=== PATIENT | male | born 1960 | race Caucasian/White ===

== ENCOUNTER 2016-10-14 10:14 | Inpatient (IN) | payer BC ==
[2016-10-14] MEDS ORDERED: IPRATROPIUM-ALBUTEROL 3 ML NEB INHALATION STA (11:04)
[2016-10-14] MEDS ORDERED: FUROSEMIDE 10 MG/ML 4 ML VIAL IV STA (11:04)
--- NOTE | 2016-10-14 11:06 | ED ---
General Adult HPI - General Chief complaint: Shortness of Breath Stated complaint: retaining water, sent by [facility] Time Seen by Provider: 10/14/16 10:58 Source: patient, RN notes reviewed Mode of arrival: ambulatory Limitations: no limitations - History of Present Illness Initial comments: Patient is a pleasant 56-year-old male presenting to the emergency Department with concerns for retaining water. Symptoms have progressed over several days. Patient does have some mild exertional dyspnea, no chest pain. No history of lung problems including asthma or COPD. Patient does have a history of similar symptoms once previously associated with CHF. Bladder retention is mostly in the legs however somewhat in the abdomen. - Related Data Home Medications Medication Instructions Recorded Confirmed No Known Home Medications [No 10/14/16 10/14/16 Known Home Medications] Allergies Allergy/AdvReac Type Severity Reaction Status Date / Time No Known Allergies Allergy Verified 10/14/16 12:07 Review of Systems ROS Statement: Those systems with pertinent positive or pertinent negative responses have been documented in the HPI. ROS Other: All systems not noted in ROS Statement are negative. Constitutional: Denies: fever Eyes: Denies: eye pain ENT: Denies: ear pain Respiratory: Reports: dyspnea. Denies: cough Cardiovascular: Reports: edema. Denies: chest pain Endocrine: Denies: fatigue Gastrointestinal: Denies: abdominal pain Genitourinary: Denies: dysuria Musculoskeletal: Denies: back pain Skin: Denies: rash Past Medical History Past Medical History: Heart Failure, Hypertension History of Any Multi-Drug Resistant Organisms: MRSA Date of last positivie culture/infection: 5 YEARS AGO MDRO Source:: LEFT ABD Additional Past Surgical History / Comment(s): COLON SX Past Psychological History: No Psychological Hx Reported Smoking Status: Current every day smoker Past Alcohol Use History: None Reported Past Drug Use History: None Reported General Exam Limitations: no limitations General appearance: alert, in no apparent distress, obese Head exam: Present: atraumatic Eye exam: Present: normal appearance, PERRL ENT exam: Present: normal oropharynx Neck exam: Present: normal inspection Respiratory exam: Present: wheezes (Mild expiratory) Cardiovascular Exam: Present: tachycardia, irregular rhythm GI/Abdominal exam: Present: soft. Absent: tenderness Extremities exam: Present: pedal edema. Absent: calf tenderness Neurological exam: Present: alert Psychiatric exam: Present: normal affect, normal mood Skin exam: Absent: rash Course Vital Signs 10/14/16 10/14/16 10/14/16 10:54 11:21 11:31 Temperature 98.1 F Pulse Rate 113 H 102 H 104 H Respiratory 20 Rate Blood Pressure 123/85 O2 Sat by Pulse 99 Oximetry EKG Findings - EKG Comments: EKG Findings:: A. fib with RVR, rate 119. QRS 92. QT 326. QTc 450. Normal axis. Normal QRS. Nonspecific T waves. Medical Decision Making - Medical Decision Making Patient reexamined and resting comfortably in bed. Patient updated on results and plan. Patient will be anticoagulated. Patient will be started on Cardizem drip secondary to persistent tachycardia. Case discussed in detail with Dr. Mccann, who will admit for Dr. Varner. - Lab Data Result diagrams: 10/14/16 11:11 10/14/16 11:11 Lab Results 10/14/16 10/14/16 10/14/16 Range/Units 11:11 11:11 11:11 WBC 7.8 (3.8-10.6) k/uL RBC 5.25 (4.30-5.90) m/uL Hgb 14.2 (13.0-17.5) gm/dL Hct 46.1 (39.0-53.0) % MCV 87.8 (80.0-100.0) fL MCH 27.1 (25.0-35.0) pg MCHC 30.9 L (31.0-37.0) g/dL RDW 16.5 H (11.5-15.5) % Plt Count 245 (150-450) k/uL Neutrophils % 72 % Lymphocytes % 14 % Monocytes % 8 % Eosinophils % 3 % Basophils % 1 % Neutrophils # 5.6 (1.3-7.7) k/uL Lymphocytes # 1.1 (1.0-4.8) k/uL Monocytes # 0.7 (0-1.0) k/uL Eosinophils # 0.2 (0-0.7) k/uL Basophils # 0.1 (0-0.2) k/uL Hypochromasia Marked Anisocytosis Slight PT (9.0-12.0) sec INR (<1.1) APTT (22.0-30.0) sec Sodium 143 (137-145) mmol/L Potassium 4.7 (3.5-5.1) mmol/L Chloride 106 (98-107) mmol/L Carbon Dioxide 24 (22-30) mmol/L Anion Gap 13 mmol/L BUN 23 H (9-20) mg/dL Creatinine 0.82 (0.66-1.25) mg/dL Est GFR (MDRD) Af Amer >60 (>60 ml/min/1.73 sqM) Est GFR (MDRD) Non-Af >60 (>60 ml/min/1.73 sqM) Glucose 110 H (74-99) mg/dL Calcium 8.8 (8.4-10.2) mg/dL Magnesium 1.9 (1.6-2.3) mg/dL Total Bilirubin 1.0 (0.2-1.3) mg/dL AST 29 (17-59) U/L ALT 19 L (21-72) U/L Alkaline Phosphatase 102 (38-126) U/L Total Creatine Kinase 118 (55-170) U/L CK-MB (CK-2) 3.8 H* (0.0-2.4) ng/mL CK-MB (CK-2) Rel Index 3.2 Troponin I <0.012 (0.000-0.034) ng/mL NT-Pro-B Natriuret Pep pg/mL Total Protein 6.4 (6.3-8.2) g/dL Albumin 3.7 (3.5-5.0) g/dL 10/14/16 10/14/16 Range/Units 11:11 11:11 WBC (3.8-10.6) k/uL RBC (4.30-5.90) m/uL Hgb (13.0-17.5) gm/dL Hct (39.0-53.0) % MCV (80.0-100.0) fL MCH (25.0-35.0) pg MCHC (31.0-37.0) g/dL RDW (11.5-15.5) % Plt Count (150-450) k/uL Neutrophils % % Lymphocytes % % Monocytes % % Eosinophils % % Basophils % % Neutrophils # (1.3-7.7) k/uL Lymphocytes # (1.0-4.8) k/uL Monocytes # (0-1.0) k/uL Eosinophils # (0-0.7) k/uL Basophils # (0-0.2) k/uL Hypochromasia Anisocytosis PT 11.4 (9.0-12.0) sec INR 1.1 (<1.1) APTT 22.9 (22.0-30.0) sec Sodium (137-145) mmol/L Potassium (3.5-5.1) mmol/L Chloride (98-107) mmol/L Carbon Dioxide (22-30) mmol/L Anion Gap mmol/L BUN (9-20) mg/dL Creatinine (0.66-1.25) mg/dL Est GFR (MDRD) Af Amer (>60 ml/min/1.73 sqM) Est GFR (MDRD) Non-Af (>60 ml/min/1.73 sqM) Glucose (74-99) mg/dL Calcium (8.4-10.2) mg/dL Magnesium (1.6-2.3) mg/dL Total Bilirubin (0.2-1.3) mg/dL AST (17-59) U/L ALT (21-72) U/L Alkaline Phosphatase (38-126) U/L Total Creatine Kinase (55-170) U/L CK-MB (CK-2) (0.0-2.4) ng/mL CK-MB (CK-2) Rel Index Troponin I (0.000-0.034) ng/mL NT-Pro-B Natriuret Pep 2600 pg/mL Total Protein (6.3-8.2) g/dL Albumin (3.5-5.0) g/dL - Radiology Data Radiology results: image reviewed (Mild cardiomegaly. Interstitial and vascular prominence correlate for CHF.) Critical Care Time Critical Care Time: Yes Total Critical Care Time: 33 Disposition Clinical Impression: Congestive heart failure, Atrial fibrillation with RVR Disposition: ADMITTED IP TO THIS HOSP
[2016-10-14 11:29] LABS: Anisocytosis Slight; Basophils # (A) 0.1 k/uL (0-0.2); Basophils % (A) 1 %; CH 26.1; Eosinophils # (A) 0.2 k/uL (0-0.7); Eosinophils % (A) 3 %; HCT 46.1 % (39.0-53.0); HDW 2.96; HGB 14.2 gm/dL (13.0-17.5); Hypochromasia Marked; Luc # (Auto) 0.18; Luc % (Auto) 2; Lymphocytes # (A) 1.1 k/uL (1.0-4.8); Lymphocytes % (A) 14 %; MCH 27.1 pg (25.0-35.0); MCHC 30.9 g/dL (31.0-37.0); MCV 87.8 fL (80.0-100.0); Mean Platelet Volume 7.5; Monocytes # (A) 0.7 k/uL (0-1.0); Monocytes % (A) 8 %; Neutrophils # (A) 5.6 k/uL (1.3-7.7); Neutrophils % (A) 72 %; RBC 5.25 m/uL (4.30-5.90); RDW 16.5 % (11.5-15.5); WBC 7.8 k/uL (3.8-10.6); WBC (Perox) 7.81
[2016-10-14 11:42] LABS: INR 1.1 (<1.1)
[2016-10-14 11:43] LABS: Partial Thromboplastin Time 22.9 sec (22.0-30.0); Prothrombin Time 11.4 sec (9.0-12.0)
[2016-10-14 11:58] LABS: ALT 19 U/L (21-72); AST 29 U/L (17-59); Alkaline Phosphatase 102 U/L (38-126); Anion Gap 13 mmol/L; Blood Urea Nitrogen 23 mg/dL (9-20); Calcium 8.8 mg/dL (8.4-10.2); Carbon Dioxide 24 mmol/L (22-30); Chloride 106 mmol/L (98-107); Creatine Kinase 118 U/L (55-170); Glucose 110 mg/dL (74-99); Magnesium 1.9 mg/dL (1.6-2.3); Non-African American GFR(MDRD) >60 (>60 ml/min/1.73 sqM); Potassium 4.7 mmol/L (3.5-5.1); Sodium 143 mmol/L (137-145); Total Protein 6.4 g/dL (6.3-8.2)
[2016-10-14 12:09] LABS: Troponin I <0.012 ng/mL (0.000-0.034)
[2016-10-14 12:15] LABS: Creatine Kinase MB 3.8 ng/mL (0.0-2.4)
--- NOTE | 2016-10-14 12:18 | XR ---
EXAMINATION TYPE: XR chest 2V DATE OF EXAM: 10/14/2016 12:02 PM COMPARISON: None HISTORY: 56-year-old male with difficulty breathing TECHNIQUE: PA and lateral views FINDINGS: The heart is borderline to mildly enlarged. Aorta within normal limits. Mild diffuse interstitial and vascular prominence. No consolidation or pleural effusion. IMPRESSION: 1. Borderline to mild cardiomegaly. 2. Interstitial and vascular prominence main in part be chronic; correlate for mild CHF. No jayesh pul monary edema.
[2016-10-14] MEDS ORDERED: ASPIRIN 325 MG TAB PO STA (13:20)
[2016-10-14] MEDS ORDERED: HEPARIN SODIUM,PORCINE 5,000 UNIT/ML 1 ML VIAL IV ONE (13:21)
[2016-10-14] MEDS: DILTIAZEM 125 MG in SODIUM CHLORIDE 0.9% 100 ML IV ONE ×2 (13:43→13:56)
[2016-10-14] MEDS: HEPARIN SODIUM,PORCINE/D5W PMX 25,000 UNIT in DEXTROSE/WATER 1 500ML.BAG IV SCH (13:43)
[2016-10-14] MEDS: FUROSEMIDE 10 MG/ML 4 ML VIAL IV SCH ×2 (16:34→23:15)
[2016-10-14] MEDS: HEPARIN SODIUM,PORCINE 5,000 UNIT/ML 1 ML VIAL IV PRN (20:47)
[2016-10-15 02:55] LABS: Anisocytosis Slight; CH 26.3; CHCM 30.9; HCT 44.9 % (39.0-53.0); HDW 3.02; HGB 14.1 gm/dL (13.0-17.5); Hypochromasia Moderate; MCH 26.9 pg (25.0-35.0); MCHC 31.4 g/dL (31.0-37.0); MCV 85.7 fL (80.0-100.0); Mean Platelet Volume 7.2; RBC 5.23 m/uL (4.30-5.90); RDW 16.5 % (11.5-15.5); WBC 6.4 k/uL (3.8-10.6); WBC (Perox) 6.36
[2016-10-15] MEDS: HEPARIN SODIUM,PORCINE 5,000 UNIT/ML 1 ML VIAL IV PRN (03:18)
[2016-10-15 06:48] LABS: Add Differential Manual Differential
[2016-10-15 06:50] LABS: Nucleated Red Blood Cells 0 /100 WBC (0-0); Total Cells Counted 100
[2016-10-15 06:51] LABS: Ovalocytes Present; Polychromasia Present
[2016-10-15 06:52] LABS: Manual Review Performed
[2016-10-15] MEDS: FUROSEMIDE 10 MG/ML 4 ML VIAL IV SCH ×3 (08:25→23:21)
[2016-10-15] MEDS ORDERED: ASPIRIN 325 MG TAB PO SCH (09:00)
[2016-10-15] MEDS: IPRATROPIUM-ALBUTEROL 3 ML NEB INHALATION SCH ×3 (13:23→19:44)
[2016-10-15] MEDS: NICOTINE 14MG/24HR PATCH TRANSDERM SCH (14:03)
--- NOTE | 2016-10-15 15:30 | P.CRDCN ---
History of Present Illness Consult date: 10/15/16 Requesting physician: Ramses Mccann Consult reason: atrial fibrillation, congestive heart failure Chief complaint: Shortness of breath and weight came History of present illness: This is a 56-year-old gentleman with history of hypertension, hyperlipidemia, COPD, nicotine dependence, prior congestive heart failure, paroxysmal atrial fibrillation with prior cardioversion as well as EP study, exact details unavailable. He presents to the hospital with symptoms of progressively worsening shortness of breath with associated fluid retention. Patient used to be on medications, he stopped them quite some time ago because of no insurance. Patient states he also used to take xarelto which she stopped taking because of GI bleeding. Chest x-ray on admission showed borderline to mild cardiomegaly with interstitial and vascular prominence, correlation for congestive heart failure recommended. EKG shows atrial fibrillation with rapid ventricular response. Laboratory data, WBC 6.4, hemoglobin 14.1, platelet count 247. Sodium 143, potassium 4.7, BUN 23, creatinine 0.8. Troponins normal 3. BNP level 2600. Blood pressure 135/90 with a heart rate in the 90s. Patient was initiated on IV Lasix on admission here has been diuresing well. He was also started on a Cardizem drip which was discontinued. Heart rate this morning in the 70s. He was seen in consultation by Dr. Abner Lou, and recommended that he would need to resume anticoagulation, he is willing to try Eliquis. We will also at this time continue his current dose of IV Lasix. We will add Lopressor, losartan, and Aldactone to his medication regime. Past Medical History Past Medical History: Heart Failure, Hypertension History of Any Multi-Drug Resistant Organisms: MRSA Date of last positivie culture/infection: 5 YEARS AGO MDRO Source:: LEFT ABD Additional Past Surgical History / Comment(s): COLON SX Past Psychological History: No Psychological Hx Reported Smoking Status: Current every day smoker Past Alcohol Use History: None Reported Past Drug Use History: None Reported Medications and Allergies Home Medications Medication Instructions Recorded Confirmed Type No Known Home Medications [No 10/14/16 10/14/16 History Known Home Medications] Allergies Allergy/AdvReac Type Severity Reaction Status Date / Time No Known Allergies Allergy Verified 10/14/16 12:07 Physical Exam Vitals: Vital Signs Temp Pulse Pulse Resp BP Pulse Ox 10/15/16 15:19 96 10/15/16 11:43 96.9 F L 91 16 135/94 95 10/15/16 07:45 97.1 F L 84 16 133/71 98 10/15/16 03:41 96.8 F L 76 16 125/89 96 10/15/16 00:00 96.6 F L 72 16 130/74 96 10/14/16 20:00 96.4 F L 91 18 130/77 97 Intake and Output 10/15/16 10/15/16 10/15/16 06:59 14:59 22:59 Intake Total 507.455 236 Balance 507.455 236 Intake: IV 310 Diltiazem 125 mg In 40 Sodium Chloride 0.9% 100 ml @ 5 MG/HR 5 mls/hr IV .Q24H [facility] Rx#:[id number] Heparin Sodium,Porcine/ 270 D5w Pmx 25,000 unit In Dextrose/Water 1 500ml. bag @ 5.7 UNITS/KG/HR 19. 85 mls/hr IV .Q24H [facility] Rx #:[id number] Intake, IV Titration 197.455 Amount Heparin Sodium,Porcine/ 197.455 D5w Pmx 25,000 unit In Dextrose/Water 1 500ml. bag @ 5.7 UNITS/KG/HR 19. 85 mls/hr IV .Q24H [facility] Rx #:[id number] Oral 236 Other: Voiding Method Toilet Toilet Weight 165.2 kg PHYSICAL EXAMINATION: HEENT: Head is atraumatic, normocephalic. Pupils equal, round. Neck is supple. There is elevated jugular venous pressure. HEART EXAMINATION: Heart S1 and S2 irregularly irregular a systolic murmur is heard. CHEST EXAMINATION: His reveal diminished air entry to bilateral bases. ABDOMEN: Soft,, obese, nontender. Bowel sounds are heard. No organomegaly noted. EXTREMITIES: 1+ peripheral pulses with 2+ evidence of peripheral edema and no calf tenderness noted. Bilateral ear erythema noted. Greater on the left leg. NEUROLOGIC patient is awake, alert and oriented -3. . Results 10/15/16 02:20 10/14/16 11:11 Cardiac Enzymes 10/14/16 10/15/16 Range/Units 19:38 02:20 Troponin I <0.012 <0.012 (0.000-0.034) ng/mL Coagulation 10/14/16 10/15/16 10/15/16 Range/Units 19:38 02:20 08:09 APTT 25.7 31.0 H 47.2 H (22.0-30.0) sec CBC 10/15/16 Range/Units 02:20 WBC 6.4 (3.8-10.6) k/uL RBC 5.23 (4.30-5.90) m/uL Hgb 14.1 (13.0-17.5) gm/dL Hct 44.9 (39.0-53.0) % Plt Count 247 (150-450) k/uL Current Medications Generic Name Dose Route Start Last Admin Trade Name Freq PRN Reason Stop Dose Admin Albuterol/Ipratropium 3 ml 10/15/16 12:00 10/15/16 15:18 Duoneb 0.5 Mg-3 Mg/3 Ml Soln INHALATION 3 ml RT-QID [facility] Administration Apixaban 5 mg 10/15/16 21:00 Eliquis PO BID [facility]VETTE Aspirin 81 mg 10/16/16 09:00 Aspirin PO DAILY [facility] Furosemide 40 mg 10/14/16 16:00 10/15/16 08:25 Lasix IV 40 mg Q8HR [facility] Administration Losartan Potassium 25 mg 10/16/16 09:00 Cozaar PO DAILY [facility] Metoprolol Tartrate 50 mg 10/15/16 21:00 Lopressor PO BID [facility]TE Nicotine 1 patch 10/15/16 12:00 10/15/16 14:03 Habitrol 14mg/24hr Patch TRANSDERM Not Given DAILY [facility] Sodium Chloride 10 ml 10/14/16 21:00 10/15/16 08:26 Saline Flush IV 10 ml BID YVETTE Administration Spironolactone 25 mg 10/16/16 09:00 Aldactone PO DAILY [facility] Intake and Output 10/15/16 10/15/16 10/15/16 06:59 14:59 22:59 Intake Total 507.455 236 Balance 507.455 236 Intake: IV 310 Diltiazem 125 mg In 40 Sodium Chloride 0.9% 100 ml @ 5 MG/HR 5 mls/hr IV .Q24H [facility] Rx#:[id number] Heparin Sodium,Porcine/ 270 D5w Pmx 25,000 unit In Dextrose/Water 1 500ml. bag @ 5.7 UNITS/KG/HR 19. 85 mls/hr IV .Q24H [facility] Rx #:[id number] Intake, IV Titration 197.455 Amount Heparin Sodium,Porcine/ 197.455 D5w Pmx 25,000 unit In Dextrose/Water 1 500ml. bag @ 5.7 UNITS/KG/HR 19. 85 mls/hr IV .Q24H [facility] Rx #:[id number] Oral 236 Other: Voiding Method Toilet Toilet Weight 165.2 kg 10/15/16 02:20 EKG Interpretations (text) EKG shows atrial fibrillation with rapid ventricular response. Assessment and Plan Plan: Assessment and plan #1 congestive cardiac failure, likely diastolic in nature. #2 hypertension #3 hyperlipidemia #4 asthma #5 paroxysmal atrial fibrillation, patient is currently in atrial fibrillation with a controlled ventricular response. Patient states he has had a prior cardioversion as well as EP study done in the past. #6Nicotine dependence Plan We will obtain a free T4 and TSH. We will also obtain an echocardiogram with Doppler study. Start the patient on Eliquis 5 mg one tablet by mouth twice a day. Initiate Lopressor 50 mg twice a day, losartan, and Aldactone. Check lytes BUN and creatinine in the morning. Obtain daily weights and accurate I&O' s. At some point patient was recommended to undergo a sleep study for possible sleep apnea as well. Further recommendations to follow. DNP note has been reviewed, I agree with a documented findings and plan of care. Patient was seen and examined.
--- NOTE | 2016-10-15 16:37 | HP ---
DATE OF ADMISSION: 10/14/2016 PRESENTING COMPLAINT: Short of breath, edema. HISTORY OF PRESENTING COMPLAINT: This is a pleasant 56-year-old patient who has a chronic history of hypertension, osteoarthritis, obesity; progressively was getting leg edema, shortness of breath, orthopnea. Does use 3 pillows at night. Admitted with CHF exacerbation. Denies any fever or cough. Patient is also a smoker. Admitted for the same. Patient was also found to be in atrial fibrillation, heart rate running up to 120s. He was put on a Cardizem drip. REVIEW OF SYSTEMS: CONSTITUTIONAL: Tired. HEENT: None. RESPIRATORY: As above. CARDIOVASCULAR: As above. GASTROINTESTINAL: None. GENITOURINARY: None. MUSCULOSKELETAL: Arthritic pain in multiple joints. DERMATOLOGICAL: None. HEMATOLOGICAL: None. LYMPHATICS: None. PSYCHIATRY: None. NEUROLOGICAL: None. PAST MEDICAL HISTORY: 1. CHF. 2. Hypertension. 3. Osteoarthritis. PAST SURGICAL HISTORY: Colon surgery. SOCIAL HISTORY: Patient smokes about half a pack a day ( ) over 40 years. Lives by himself. Denies any alcohol. 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 FAMILY HISTORY: Reviewed; noncontributory to presentation. HOME MEDICATIONS: None. ALLERGIES: NONE. PHYSICAL EXAMINATION: VITAL SIGNS ON PRESENTATION: Temperature 98.1, pulse 113, respiration 20, blood pressure 123/85, pulse ox 99% on room air. GENERAL APPEARANCE: Well built. BMI of 45.5. Sitting up. EYES: Pupils equal. Conjunctivae normal. HEENT: Oral cavity normal. NECK: JVD raised. Mass not palpable. RESPIRATORY: Effort increased. LUNGS: Diminished breath sounds. CARDIOVASCULAR: Heart sounds irregular. Edema present. ABDOMEN: Distended, soft. Liver and spleen not palpable. LYMPHATIC: No lymph node palpable in neck or axillae. PSYCHIATRIC: Alert and oriented x3. Mood and affect normal. NEUROLOGICAL: Pupils equal. Cranial nerves grossly intact. Power and sensation grossly intact. MUSCULOSKELETAL: Evidence of osteoarthritis, especially in the hands and knees. DERMATOLOGICAL: Varicose veins, especially on the left leg. INVESTIGATIONS: White count 7.8, hemoglobin 14.2, platelets 245. Potassium 4.7. BUN 23, creatinine 0.82. Troponins x3 less than 0.012. ProBNP 2600. Chest x-ray shows cardiomegaly, prominent pulmonary artery, venous prominence. EKG shows atrial flutter/fibrillation. ASSESSMENT: 1. Acute on chronic congestive heart failure exacerbation, underlying hypertensive heart disease. 2. New-onset atrial flutter/fibrillation, rate uncontrolled, present on admission. 3. Gastroesophageal reflux disease. 4. Primary osteoarthritis in multiple joints bilaterally, especially in the hands and knees. 5. Morbid obesity; body mass index of 45.5. 6. Chronic obstructive pulmonary disease in a current smoker. 7. Chronic nicotine dependence. Patient is a smoker. PLAN: Patient was started on IV Lasix. A 2-D echocardiogram was ordered. Patient was also put on a Cardizem drip. Patient was put on nebulized bronchodilators, nicotine patch. I&O will be closely followed. Cardiology was consulted.
[2016-10-15] MEDS: APIXABAN 5 MG TAB PO SCH (17:01)
[2016-10-15] MEDS: HEPARIN SODIUM,PORCINE/D5W PMX 25,000 UNIT in DEXTROSE/WATER 1 500ML.BAG IV SCH (17:52)
[2016-10-15] MEDS: METOPROLOL TARTRATE 50 MG TAB PO SCH (20:57)
[2016-10-16 00:04] VITALS: RESP 18
[2016-10-16 06:08] LABS: Anisocytosis Slight; Basophils % (A) 1 %; CH 26.9; CHCM 31.2; Eosinophils # (A) 0.3 k/uL (0-0.7); Eosinophils % (A) 6 %; HCT 45.4 % (39.0-53.0); HGB 14.2 gm/dL (13.0-17.5); Hypochromasia Slight; Luc # (Auto) 0.13; Luc % (Auto) 2; Lymphocytes # (A) 1.2 k/uL (1.0-4.8); Lymphocytes % (A) 21 %; MCH 27.1 pg (25.0-35.0); MCHC 31.3 g/dL (31.0-37.0); MCV 86.7 fL (80.0-100.0); Mean Platelet Volume 7.2; Monocytes # (A) 0.4 k/uL (0-1.0); Monocytes % (A) 8 %; Neutrophils # (A) 3.6 k/uL (1.3-7.7); Neutrophils % (A) 63 %; RBC 5.24 m/uL (4.30-5.90); RDW 16.3 % (11.5-15.5); WBC 5.7 k/uL (3.8-10.6); WBC (Perox) 5.77
[2016-10-16 06:17] LABS: Anion Gap 8 mmol/L; Blood Urea Nitrogen 19 mg/dL (9-20); Calcium 8.8 mg/dL (8.4-10.2); Carbon Dioxide 32 mmol/L (22-30); Chloride 99 mmol/L (98-107); Glucose 111 mg/dL (74-99); Non-African American GFR(MDRD) >60 (>60 ml/min/1.73 sqM); Potassium 3.8 mmol/L (3.5-5.1); Sodium 139 mmol/L (137-145)
[2016-10-16] MEDS: FUROSEMIDE 10 MG/ML 4 ML VIAL IV SCH ×3 (08:29→23:38)
[2016-10-16] MEDS: APIXABAN 5 MG TAB PO SCH (08:29)
[2016-10-16] MEDS: NICOTINE 14MG/24HR PATCH TRANSDERM SCH (08:29)
[2016-10-16] MEDS: METOPROLOL TARTRATE 50 MG TAB PO SCH ×2 (08:29→20:46)
[2016-10-16] MEDS: SPIRONOLACTONE 25 MG TAB PO SCH (08:30)
[2016-10-16] MEDS: IPRATROPIUM-ALBUTEROL 3 ML NEB INHALATION SCH ×5 (08:58→20:16)
[2016-10-16] MEDS ORDERED: ASPIRIN 81 MG CHEW PO SCH (09:00)
[2016-10-16] MEDS ORDERED: LOSARTAN 25 MG TAB PO SCH (09:00)
[2016-10-16 11:49] VITALS: BMI 44.3
--- NOTE | 2016-10-16 15:47 | P.PN ---
Subjective This is a 56-year-old gentleman with history of hypertension, hyperlipidemia, COPD, nicotine dependence, prior congestive heart failure, paroxysmal atrial fibrillation with prior cardioversion as well as EP study, exact details unavailable. He presents to the hospital with symptoms of progressively worsening shortness of breath with associated fluid retention. Patient used to be on medications, he stopped them quite some time ago because of no insurance. Patient states he also used to take xarelto which she stopped taking because of GI bleeding. Patient was initiated on IV Lasix, continues to diurese well. He was started yesterday on Eliquis because of his atrial fibrillation, he had 1 bloody stool earlier this morning, and later this afternoon started passing blood clots rectally. For this reason the Eliquis was discontinued. Dr. Lou did have a lengthy discussion with the patient explaining his risk for stroke being that he cannot tolerate anticoagulation. Overall the patient feels much better today. Blood pressure 130/70 with a heart rate in the 90 to low 100s, creatinine 0.9. Objective - Vital Signs Vital signs: Vital Signs Temp 97.1 F L 10/16/16 11:34 Pulse 98 10/16/16 11:35 Resp 18 10/16/16 11:35 BP 131/72 10/16/16 11:34 Pulse Ox 98 10/16/16 11:34 Intake & Output 10/15/16 10/16/16 10/16/16 18:59 06:59 18:59 Intake Total 836 24 854 Balance 836 24 854 Weight 160.8 kg 160.8 kg Intake: IV 24 14 0.9% NS FLUSH 10 mL 20 10 Furosemide 40 mg/4mL 4 4 Oral 836 [id number] Other: Voiding Method Toilet Toilet # Voids 2 # Bowel Movements 3 - Exam PHYSICAL EXAMINATION: HEENT: Head is atraumatic, normocephalic. Pupils equal, round. Neck is supple. There is elevated jugular venous pressure. HEART EXAMINATION: Heart S1 and S2 irregularly irregular a systolic murmur is heard. CHEST EXAMINATION: His reveal diminished air entry to bilateral bases. ABDOMEN: Soft,, obese, nontender. Bowel sounds are heard. No organomegaly noted. EXTREMITIES: 1+ peripheral pulses with 2+ evidence of peripheral edema and no calf tenderness noted. Bilateral ear erythema noted. Greater on the left leg. NEUROLOGIC patient is awake, alert and oriented -3. . - Labs CBC & Chem 7: 10/16/16 05:47 10/16/16 05:47 Labs: Abnormal Lab Results - Last 24 Hours (Table) 10/16/16 10/16/16 Range/Units 05:47 05:47 RDW 16.3 H (11.5-15.5) % Carbon Dioxide 32 H (22-30) mmol/L Glucose 111 H (74-99) mg/dL Assessment and Plan Plan: Assessment and plan #1 congestive cardiac failure, likely diastolic in nature. #2 hypertension #3 hyperlipidemia #4 asthma #5 paroxysmal atrial fibrillation, patient is currently in atrial fibrillation with a controlled ventricular response. Patient states he has had a prior cardioversion as well as EP study done in the past. #6Nicotine dependence Plan We will continue current dose of IV Lasix. Increase beta georges to 75 mg by mouth twice a day, increase losartan to 50 mg daily. We will also discontinue the patient's Eliquis because of lower GI bleeding. Patient does understand his increased risk for stroke not being on anticoagulants. DNP note has been reviewed, I agree with a documented findings and plan of care. Patient was seen and examined.
--- NOTE | 2016-10-16 20:53 | PN ---
DATE OF SERVICE: 10/16/2016 PRESENTING COMPLAINT: Short of breath. INTERVAL HISTORY: This is a patient who presents with new-onset atrial flutter/fibrillation, COPD exacerbation, some element of CHF. Patient also was put on Eliquis. Patient has had 2 or 3 episodes of blood clot, some of them significant; hence Eliquis was held earlier this afternoon. Patient's breathing is somewhat better. Patient is a smoker. Review of systems done for constitutional, cardiovascular, GI, pulmonary; relevant findings as above. Current medications are reviewed that include: 1. Aldactone. 2. DuoNeb. 3. Lopressor. 4. Cozaar. 5. IV Lasix. On examination, temperature 97.1, pulse 98, respiration 18, blood pressure 131/72, pulse ox 98% on room air. GENERAL APPEARANCE: Sitting up, not in distress. EYES: Pupils equal. Conjunctivae normal. NECK: JVD not raised. Mass not palpable. RESPIRATORY: Effort increased. LUNGS: Decreased breath sounds. CARDIOVASCULAR: Heart sounds ( ) decreased edema. ABDOMEN: Soft, nontender. Liver and spleen not palpable. PSYCHIATRY: Alert and oriented x3. Mood and affect normal. INVESTIGATIONS: Telemetry shows heart rate about 110. Hemoglobin 14.2. Potassium 3.8. Two-D echo is pending. ASSESSMENT: 1. New-onset atrial flutter/fibrillation, present on admission. 2. Acute gastrointestinal bleed when patient started on Eliquis. Patient has had bleeding before. 3. Gastroesophageal reflux disease. 4. Primary osteoarthritis in multiple joints bilaterally, especially in the hands and knees. 5. Morbid obesity; body mass index of 45.5. 6. Chronic obstructive pulmonary disease in a current smoker. 7. Chronic nicotine dependence. Patient is a smoker. 8. Acute congestive heart failure exacerbation; pending 2-D echocardiogram. PLAN: Eliquis was discontinued. GI is consulted. Other medication and treatment plan to continue. Care was discussed with the patient.
[2016-10-17 06:05] LABS: Basophils % (A) 1 %; CHCM 30.8; Eosinophils # (A) 0.4 k/uL (0-0.7); Eosinophils % (A) 6 %; HCT 47.6 % (39.0-53.0); HDW 2.91; Hypochromasia Moderate; Luc % (Auto) 4; Lymphocytes # (A) 1.5 k/uL (1.0-4.8); Lymphocytes % (A) 26 %; MCH 26.8 pg (25.0-35.0); MCHC 31.6 g/dL (31.0-37.0); Mean Platelet Volume 6.6; Monocytes # (A) 0.5 k/uL (0-1.0); Monocytes % (A) 9 %; Neutrophils % (A) 54 %; RDW 15.9 % (11.5-15.5); WBC 5.5 k/uL (3.8-10.6); WBC (Perox) 5.44
[2016-10-17] MEDS: IPRATROPIUM-ALBUTEROL 3 ML NEB INHALATION SCH ×2 (08:02→11:42)
[2016-10-17] MEDS: NICOTINE 14MG/24HR PATCH TRANSDERM SCH (08:59)
[2016-10-17] MEDS ORDERED: LOSARTAN 50 MG TAB PO SCH (09:00)
[2016-10-17] MEDS: METOPROLOL TARTRATE 50 MG TAB PO SCH (09:02)
[2016-10-17] MEDS: FUROSEMIDE 10 MG/ML 4 ML VIAL IV SCH (09:02)
[2016-10-17] MEDS: SPIRONOLACTONE 25 MG TAB PO SCH (09:03)
--- NOTE | 2016-10-17 09:47 | ECHOF ---
Referral Reason:Heart Failure MEASUREMENTS -------- HEIGHT: 190.5 cm WEIGHT: 174.2 kg BP: 154/69 RVIDd: 4.0 cm (< 3.3) IVSd: 1.5 cm (0.6 - 1.1) LVIDd: 5.2 cm (3.9 - 5.3) LVPWd: 1.7 cm (0.6 - 1.1) IVSs: 2.2 cm LVIDs: 4.0 cm LVPWs: 1.8 cm LA Diam: 4.7 cm (2.7 - 3.8) LAESV Index (A-L): 45.40 ml/m Ao Diam: 3.4 cm (2.0 - 3.7) AV Cusp: 1.6 cm (1.5 - 2.6) LA Diam: 4.2 cm (2.7 - 3.8) MV EXCURSION: 15.618 mm (> 18.000) MV EF SLOPE: 143 mm/s (70 - 150) EPSS: 0.5 cm RAP: 15.00 mmHg RVSP: 56.56 mmHg FINDINGS -------- Atrial fibrillation. This was a technically adequate study. There is severe concentric left ventricular hypertrophy. Overall left ventricular systolic function is mild-moderately impaired with, an EF between 40 - 45 %. The right ventricle is moderate to severely enlarged. LA is severely dilated >40 ml/m2 The right atrium is moderately enlarged. 1.5mg of Definity was utilized for enhancement of images Aortic valve is trileaflet and is mildly thickened. Mild mitral annular calcification present. There is trace mitral regurgitation. Mild tricuspid regurgitation present. There is moderate to severe pulmonary hypertension. The right ventricular systolic pressure, as measured by Doppler, is 56.56mmHg. The pulmonic valve was not well visualized. The aortic root size is normal. The inferior vena cava is dilated with poor inspiratory collapse which is consistent with estimated right atrial pressure of 15 mmHg. There is no pericardial effusion. CONCLUSIONS -------- 1. Atrial fibrillation. 2. Mild mitral annular calcification present. 3. There is trace mitral regurgitation. 4. Mild tricuspid regurgitation present. 5. There is moderate to severe pulmonary hypertension. 6. The right ventricular systolic pressure, as measured by Doppler, is 56.56mmHg. 7. The pulmonic valve was not well visualized. 8. The aortic root size is normal. 9. The inferior vena cava is dilated with poor inspiratory collapse which is consistent with estimated right atrial pressure of 15 mmHg. 10. There is no pericardial effusion. 11. This was a technically adequate study. 12. There is severe concentric left ventricular hypertrophy. 13. Overall left ventricular systolic function is mild-moderately impaired with, an EF between 40 - 45 %. 14. The right ventricle is moderate to severely enlarged. 15. LA is severely dilated >40 ml/m2 16. The right atrium is moderately enlarged. 17. 1.5mg of Definity was utilized for enhancement of images 18. Aortic valve is trileaflet and is mildly thickened. [facility] DIRECTOR: Jonathon Diggs RDCS
[2016-10-17 15:21] VITALS: BP 120/78; PULSE 82; TEMP 97
--- NOTE | 2016-10-17 15:23 | P.PN ---
Subjective This is a 56-year-old gentleman with history of hypertension, hyperlipidemia, COPD, nicotine dependence, prior congestive heart failure, paroxysmal atrial fibrillation with prior cardioversion as well as EP study, exact details unavailable. He presents to the hospital with symptoms of progressively worsening shortness of breath with associated fluid retention. Patient used to be on medications, he stopped them quite some time ago because of no insurance. Patient states he also used to take xarelto which she stopped taking because of GI bleeding. Patient was initiated on IV Lasix, continues to diurese well. He was started yesterday on Eliquis because of his atrial fibrillation, because of bloody stools this was discontinued. Patient doing much better overall today. We'll discontinue his IV Lasix and start him on 40 mg of by mouth Lasix twice a day. Continue the rest of his medications which include losartan 50 mg daily, metoprolol tartrate 75 mg one tablet by mouth twice a day, Aldactone 25 mg daily, and a nicotine patch 14 mg daily. Objective - Vital Signs Vital signs: Vital Signs Temp 97.6 F 10/17/16 11:35 Pulse 73 10/17/16 11:36 Resp 18 10/17/16 11:36 BP 132/80 10/17/16 11:35 Pulse Ox 95 10/17/16 11:35 Intake & Output 10/16/16 10/17/16 10/17/16 18:59 06:59 18:59 Intake Total 1925 10 416 Balance 1925 10 416 Weight 160.8 kg 155.2 kg Intake: IV 14 10 14 0.9% NS FLUSH 10 mL 10 10 10 Furosemide 40 mg/4mL 4 4 Oral 1911 402 Other: Voiding Method Toilet Toilet # Voids 2 # Bowel Movements 3 - Exam PHYSICAL EXAMINATION: HEENT: Head is atraumatic, normocephalic. Pupils equal, round. Neck is supple. There is elevated jugular venous pressure. HEART EXAMINATION: Heart S1 and S2 irregularly irregular a systolic murmur is heard. CHEST EXAMINATION: His reveal diminished air entry to bilateral bases. ABDOMEN: Soft,, obese, nontender. Bowel sounds are heard. No organomegaly noted. EXTREMITIES: 1+ peripheral pulses with 2+ evidence of peripheral edema and no calf tenderness noted. Bilateral ear erythema noted. Greater on the left leg. NEUROLOGIC patient is awake, alert and oriented -3. . - Labs CBC & Chem 7: 10/17/16 05:42 10/16/16 05:47 Labs: Abnormal Lab Results - Last 24 Hours (Table) 10/17/16 Range/Units 05:42 RDW 15.9 H (11.5-15.5) % Assessment and Plan Plan: Assessment and plan #1 congestive cardiac failure, likely diastolic in nature. #2 hypertension #3 hyperlipidemia #4 asthma #5 paroxysmal atrial fibrillation, patient is currently in atrial fibrillation with a controlled ventricular response. Patient states he has had a prior cardioversion as well as EP study done in the past. #6Nicotine dependence Plan Discontinue the patient's IV Lasix, start him on Lasix 40 mg one tablet by mouth twice a day. He may be able to be discharged home today from cardiology' s perspective to follow-up in the office post discharge with Dr. Abner Lou. Patient will also be discharged home on losartan 50 mg daily, metoprolol tartrate 75 mg one tablet by mouth twice a day, nicotine patch, and Aldactone 25 mg daily. Patient will not be going home on anticoagulation because of stomach significant lower GI bleeding. DNP note has been reviewed, I agree with a documented findings and plan of care. Patient was seen and examined.
[2016-10-17] MEDS ORDERED: FUROSEMIDE 40 MG TAB PO SCH (16:00)
--- NOTE | 2016-10-17 16:34 | CONS ---
DATE OF CONSULTATION: 10/17/2016 REASON FOR CONSULTATION: Acute GI bleed. HISTORY OF PRESENT ILLNESS: This patient is a 56-year-old pleasant white male who was admitted to the hospital with exacerbation of congestive heart failure. He presented with shortness of breath, lower extremity swelling and increased weight up to 3 pounds in the last one month's duration. While in the hospital he was diagnosed with atrial fibrillation with rapid ventricular heart rate, and he was started on Eliquis. Subsequently he started having some rectal bleeding. He had about 3 episodes of rectal bleeding 2 days ago and yesterday he had a couple of episodes. The Eliquis has been on hold, and since then the bleeding has completely subsided. The patient denies any significant change in his bowel habits. He denies any constipation recently. He stated that when he was admitted to [facility] in [place] 2 to 3 years ago for a similar reason he was started on Xarelto for atrial fibrillation, at which time he had rectal bleeding and he stopped taking the medication. Since then he did not have any rectal bleeding. He did mention he had a colonoscopy around the same time, and according to him it showed small internal hemorrhoids. At present he reports no abdominal pain, no nausea or vomiting. Past medical history is significant for: 1. Hypertension. 2. Morbid obesity. 3. Congestive heart failure. 4. Osteoarthritis. 5. Hypertension. Medications at home include: 1. Aldactone. 2. Habitrol. 3. Lopressor. 4. Cozaar. ALLERGIES: NONE. PAST SURGICAL HISTORY: Colonoscopy 3 years ago. SOCIAL HISTORY: Chronic smoker. No alcohol use. FAMILY HISTORY: Unremarkable. REVIEW OF SYSTEMS: CARDIOPULMONARY: He denies any chest pain at present. No shortness of breath. GENITOURINARY: No dysuria, hematuria. MUSCULOSKELETAL: Unremarkable. SKIN: Unremarkable. ENDOCRINE: Unremarkable. PSYCHIATRIC: Unremarkable. NEUROLOGY: Unremarkable. ENT/VISION: Unremarkable. CONSTITUTIONAL: Recent weight loss ( ). On physical examination, he appears comfortable, in no apparent distress. Vital signs are stable. Blood pressure is 135/94, pulse rate 91, temperature 97.3. HEENT: Unremarkable. Conjunctivae pink. Sclerae anicteric. Oral cavity with no lesions. NECK: No JVD or lymph node enlargement. CHEST: Clear to auscultation. HEART: Regular rate and rhythm. ABDOMEN: Extremely obese. Bowel sounds are positive. No organomegaly. EXTREMITIES: No pedal edema. SKIN: No rashes. NEURO: Alert and oriented x3. No focal deficits. LABS AT THE TIME OF ADMISSION TO THE HOSPITAL: WBC 6.4, hemoglobin 14.1, platelets normal. Today hemoglobin is 15. Basic metabolic panel is within normal limits. IMPRESSION: 1. This is a patient who was admitted to the hospital with exacerbation of congestive heart failure and while in the hospital was diagnosed with atrial fibrillation with rapid ventricular heart rate. He was started on IV Cardizem drip and also on Eliquis; immediately he started having some rectal bleeding. He had about 2 to 3 episodes in the last 2 days, and the Eliquis has been on hold since yesterday. The bleeding has completely subsided. He denies any significant change in his bowel habits. He had a similar episode 2-1/2 years ago, at which time he was started on Xarelto but discontinued the medication. He recalls having a colonoscopy around that time and was told he had internal hemorrhoids. Most likely we are dealing with bleeding from internal hemorrhoids, but other causes for colonic pathology cannot be excluded. At present he is hemodynamically stable, with no further bleeding for the last 24 hours. 2. Exacerbation of congestive heart failure, gradually improving. RECOMMENDATIONS: I did suggest that the patient have a colonoscopy done on an inpatient basis tomorrow, but he refuses to have it done at this time. Since the bleeding has stopped, he wants to go home and follow up in the office in 2 weeks, at which time we will discuss further. At this time I agree with the plan and will make an appointment for him to follow up in the office in 2 weeks. Thank you for this consultation.
--- NOTE | 2016-10-18 08:25 | DS ---
DATE OF ADMISSION: 10/14/2016 DATE OF DISCHARGE: 10/17/2016 FINAL DIAGNOSES: 1. Acute congestive heart failure exacerbation from systolic dysfunction; ejection fraction of 40% and also diastolic dysfunction. 2. Diastolic dysfunction, acute on chronic underlying severe concentric left ventricular hypertrophy. 3. Hypertensive heart disease. 4. Secondary to moderate to severe pulmonary hypertension ( ) chronic obstructive pulmonary disease. 5. Chronic obstructive pulmonary disease in a smoker. 6. Persistent atrial fibrillation. 7. Acute gastrointestinal bleed in a patient who was started on Eliquis. 8. Gastroesophageal reflux disease. 9. Primary osteoarthritis of multiple joints, especially the hands and knees. 10. Moderate obesity, body mass index 45.5. 11. Chronic nicotine dependence. The patient is a smoker. HOSPITAL COURSE: This patient presented with short of breath, edema, atrial fibrillation. Rate was better controlled at the time of discharge. The patient was put on Eliquis, started beating. Patient had bleeding before. Patient was seen by Dr. Imtiaz Kingsley. Will see the patient is an outpatient. No further bleeding. Patient had a brown stool. ON EXAM: LUNGS: Improved air entry. Edema has decreased. Patient also has varicose veins. The 2-D echo showed evidence of secondary pulmonary hypertension, EF of 40% to 45%. CONSULTATIONS: Dr. Randy Lou and Dr. Denise Kingsley from cardiology. Discharge planning more than 35 minutes. ADDITIONAL NOTE: It was explained to the patient because of bleeding and not getting an anticoagulation, he is a high risk of stroke. This was discussed with Dr. Lou and the patient too. DISCHARGE MEDICATIONS: 1. Atrovent HFA 2 puffs q.i.d. 2. Cozaar 50 mg a day. 3. Lopressor 75 mg p.o. b.i.d. 4. Nicotine 14 patch daily. 5. Aldactone 25 mg daily. Follow up with Dr. Randy Lou in 2 weeks; Dr. Varner in one week, Dr. Imtiaz Kingsley in one week. LABS: BMP in one week. Discharge planning more than 35 minutes.
== END 2016-10-17 16:40 | disposition home or self-care (01) | DRG 308 ==
LOC: EC 10:14 → 6SEL 13:20
PROVIDERS: ADMIT Hospitalist; ATTEND Hospitalist
DX: I48.1 Persistent atrial fibrillation (principal); I50.43 Acute on chronic combined systolic (congestive) and diastolic (congestive) heart failure; I27.2 Other secondary pulmonary hypertension; E66.01 Morbid (severe) obesity due to excess calories; I11.0 Hypertensive heart disease with heart failure; I48.92 Unspecified atrial flutter; E78.5 Hyperlipidemia, unspecified; F17.210 Nicotine dependence, cigarettes, uncomplicated; I48.0 Paroxysmal atrial fibrillation; I83.90 Asymptomatic varicose veins of unspecified lower extremity; J45.909 Unspecified asthma, uncomplicated; K21.9 Gastro-esophageal reflux disease without esophagitis; M15.9 Polyosteoarthritis, unspecified; J44.9 Chronic obstructive pulmonary disease, unspecified; K64.8 Other hemorrhoids; T50.995A Adverse effect of other drugs, medicaments and biological substances, initial encounter; Z86.14 Personal history of Methicillin resistant Staphylococcus aureus infection; Z68.42 Body mass index [BMI] 45.0-49.9, adult; Z79.899 Other long term (current) drug therapy; Y92.239 Unspecified place in hospital as the place of occurrence of the external cause
CPT/HCPCS: 36415; 71020; 80048; 80053; 82550; 82553; 83735; 83880; 84439; 84443; 84484; 85025; 85379; 85610; 85730; 93005; 93306; 94640; 96365; 96375; 96376; 99291

== ENCOUNTER 2016-11-29 14:03 | Inpatient (IN) | payer BC ==
[2016-11-29] MEDS ORDERED: NITROGLYCERIN SL TABS 0.4 MG TAB SUBLINGUAL PRN (14:47)
[2016-11-29] MEDS ORDERED: DILTIAZEM 5 MG/ML 5 ML VIAL IVP STA (14:47)
[2016-11-29] MEDS ORDERED: HEPARIN SODIUM,PORCINE 5,000 UNIT/ML 1 ML VIAL IV ONE (14:47)
[2016-11-29] MEDS ORDERED: ASPIRIN 81 MG CHEW PO STA ×2 (14:47)
[2016-11-29] MEDS ORDERED: DILTIAZEM 125 MG in SODIUM CHLORIDE 0.9% 100 ML IV ONE (14:47)
[2016-11-29] MEDS ORDERED: SODIUM CHLORIDE 0.9% 1,000 ML IV STA ×2 (14:47)
--- NOTE | 2016-11-29 14:52 | ED ---
General Adult HPI - General Chief complaint: Recheck/Abnormal Lab/Rx Stated complaint: Sent by No symptoms?? Time Seen by Provider: 11/29/16 14:44 Source: patient, RN notes reviewed, old records reviewed Mode of arrival: wheelchair Limitations: no limitations - History of Present Illness Initial comments: This is a 56-year-old male here for evaluation. He presents here for evaluation of life and situation, patient was told to the emergency for evaluation. Patient was told that he is having surgery. Patient does have history of A. fib with RVR was recently on anticoagulation but is currently not. Patient denies chest pain. Patient denies any fever cough or congestion. - Related Data Previous Rx's Medication Instructions Recorded Ipratropium [place] [Atrovent Hfa] 2 puff INHALATION QID #1 inhaler 10/17/16 Losartan [Cozaar] 50 mg PO DAILY #30 tab 10/17/16 Metoprolol Tartrate [Lopressor] 75 mg PO BID #60 tab 10/17/16 Nicotine 14Mg/24Hr Patch [Habitrol] 1 patch TRANSDERM DAILY #14 patch 10/17/16 Spironolactone [Aldactone] 25 mg PO DAILY #30 tab 10/17/16 Allergies Allergy/AdvReac Type Severity Reaction Status Date / Time No Known Allergies Allergy Verified 11/29/16 14:22 Review of Systems ROS Statement: Those systems with pertinent positive or pertinent negative responses have been documented in the HPI. ROS Other: All systems not noted in ROS Statement are negative. Past Medical History Past Medical History: Heart Failure, Hypertension History of Any Multi-Drug Resistant Organisms: MRSA Date of last positivie culture/infection: 5 YEARS AGO MDRO Source:: LEFT ABD Past Surgical History: Bowel Resection Additional Past Surgical History / Comment(s): COLON SX Past Psychological History: Anxiety, Depression Smoking Status: Current every day smoker Past Alcohol Use History: Rare Past Drug Use History: None Reported General Exam Limitations: no limitations General appearance: alert, in no apparent distress Head exam: Present: atraumatic, normocephalic, normal inspection Eye exam: Present: normal appearance, PERRL, EOMI. Absent: scleral icterus, conjunctival injection, periorbital swelling ENT exam: Present: normal exam, mucous membranes moist Neck exam: Present: normal inspection. Absent: tenderness, meningismus, lymphadenopathy Respiratory exam: Present: normal lung sounds bilaterally. Absent: respiratory distress, wheezes, rales, rhonchi, stridor Cardiovascular Exam: Present: tachycardia, irregular rhythm, normal heart sounds. Absent: systolic murmur, diastolic murmur, rubs, gallop, clicks GI/Abdominal exam: Present: soft, normal bowel sounds. Absent: distended, tenderness, guarding, rebound, rigid Extremities exam: Present: normal inspection, full ROM, normal capillary refill. Absent: tenderness, pedal edema, joint swelling, calf tenderness Back exam: Present: normal inspection Neurological exam: Present: alert, oriented X3, CN II-XII intact Psychiatric exam: Present: normal affect, normal mood Skin exam: Present: warm, dry, intact, normal color. Absent: rash Course Vital Signs 11/29/16 11/29/16 14:16 14:40 Temperature 97.2 F L 98.2 F Pulse Rate 81 134 H Respiratory 18 16 Rate Blood Pressure 93/50 106/75 O2 Sat by Pulse 95 97 Oximetry EKG Findings - EKG Comments: EKG Findings:: EKG shows A. fib with RVR rate 1:15, QRS 96, QTC 489 Medical Decision Making - Medical Decision Making 56 male to the ED with evaluation for A. fib with RVR, elevated troponin, patient be admitted for anticoagulation, trending of troponin. - Lab Data Result diagrams: 11/29/16 14:58 11/29/16 14:58 Lab Results 11/29/16 11/29/16 11/29/16 Range/Units 14:58 14:58 14:58 WBC 5.6 (3.8-10.6) k/uL RBC 5.63 (4.30-5.90) m/uL Hgb 15.2 (13.0-17.5) gm/dL Hct 47.9 (39.0-53.0) % MCV 85.0 (80.0-100.0) fL MCH 26.9 (25.0-35.0) pg MCHC 31.7 (31.0-37.0) g/dL RDW 15.8 H (11.5-15.5) % Plt Count 238 (150-450) k/uL Neutrophils % 59 % Lymphocytes % 25 % Monocytes % 7 % Eosinophils % 5 % Basophils % 1 % Neutrophils # 3.3 (1.3-7.7) k/uL Lymphocytes # 1.4 (1.0-4.8) k/uL Monocytes # 0.4 (0-1.0) k/uL Eosinophils # 0.3 (0-0.7) k/uL Basophils # 0.1 (0-0.2) k/uL PT 10.5 (9.0-12.0) sec INR 1.0 (<1.1) APTT 23.8 (22.0-30.0) sec D-Dimer 0.21 (<0.60) mg/L FEU Sodium 143 (137-145) mmol/L Potassium 4.4 (3.5-5.1) mmol/L Chloride 108 H (98-107) mmol/L Carbon Dioxide 22 (22-30) mmol/L Anion Gap 13 mmol/L BUN 33 H (9-20) mg/dL Creatinine 1.40 H (0.66-1.25) mg/dL Est GFR (MDRD) Af Amer >60 (>60 ml/min/1.73 sqM) Est GFR (MDRD) Non-Af 53 (>60 ml/min/1.73 sqM) Glucose 106 H (74-99) mg/dL Calcium 8.9 (8.4-10.2) mg/dL Magnesium 1.7 (1.6-2.3) mg/dL Total Bilirubin 0.6 (0.2-1.3) mg/dL AST 33 (17-59) U/L ALT 23 (21-72) U/L Alkaline Phosphatase 88 (38-126) U/L NT-Pro-B Natriuret Pep pg/mL Total Protein 6.6 (6.3-8.2) g/dL Albumin 4.0 (3.5-5.0) g/dL 11/29/16 Range/Units 14:58 WBC (3.8-10.6) k/uL RBC (4.30-5.90) m/uL Hgb (13.0-17.5) gm/dL Hct (39.0-53.0) % MCV (80.0-100.0) fL MCH (25.0-35.0) pg MCHC (31.0-37.0) g/dL RDW (11.5-15.5) % Plt Count (150-450) k/uL Neutrophils % % Lymphocytes % % Monocytes % % Eosinophils % % Basophils % % Neutrophils # (1.3-7.7) k/uL Lymphocytes # (1.0-4.8) k/uL Monocytes # (0-1.0) k/uL Eosinophils # (0-0.7) k/uL Basophils # (0-0.2) k/uL PT (9.0-12.0) sec INR (<1.1) APTT (22.0-30.0) sec D-Dimer (<0.60) mg/L FEU Sodium (137-145) mmol/L Potassium (3.5-5.1) mmol/L Chloride (98-107) mmol/L Carbon Dioxide (22-30) mmol/L Anion Gap mmol/L BUN (9-20) mg/dL Creatinine (0.66-1.25) mg/dL Est GFR (MDRD) Af Amer (>60 ml/min/1.73 sqM) Est GFR (MDRD) Non-Af (>60 ml/min/1.73 sqM) Glucose (74-99) mg/dL Calcium (8.4-10.2) mg/dL Magnesium (1.6-2.3) mg/dL Total Bilirubin (0.2-1.3) mg/dL AST (17-59) U/L ALT (21-72) U/L Alkaline Phosphatase (38-126) U/L NT-Pro-B Natriuret Pep 1880 pg/mL Total Protein (6.3-8.2) g/dL Albumin (3.5-5.0) g/dL - Radiology Data Radiology results: report reviewed (Chest x-ray is negative for acute disease), image reviewed Critical Care Time Critical Care Time: Yes Total Critical Care Time: 31 Disposition Clinical Impression: Atrial fibrillation with RVR, NSTEMI (non-ST elevated myocardial infarction) Disposition: ADMITTED IP TO THIS HOSP Condition: Fair Referrals: Casey Varner MD [Primary Care Provider] - 1-2 days
[2016-11-29 15:12] LABS: Basophils # (A) 0.1 k/uL (0-0.2); Basophils % (A) 1 %; CH 27.2; CHCM 32.2; Eosinophils # (A) 0.3 k/uL (0-0.7); Eosinophils % (A) 5 %; HCT 47.9 % (39.0-53.0); HDW 2.75; HGB 15.2 gm/dL (13.0-17.5); Luc # (Auto) 0.16; Luc % (Auto) 3; Lymphocytes # (A) 1.4 k/uL (1.0-4.8); Lymphocytes % (A) 25 %; MCH 26.9 pg (25.0-35.0); MCHC 31.7 g/dL (31.0-37.0); Mean Platelet Volume 7.1; Monocytes # (A) 0.4 k/uL (0-1.0); Monocytes % (A) 7 %; Neutrophils # (A) 3.3 k/uL (1.3-7.7); Neutrophils % (A) 59 %; RBC 5.63 m/uL (4.30-5.90); RDW 15.8 % (11.5-15.5); WBC 5.6 k/uL (3.8-10.6); WBC (Perox) 5.79
[2016-11-29 15:22] LABS: ALT 23 U/L (21-72); AST 33 U/L (17-59); Alkaline Phosphatase 88 U/L (38-126); Anion Gap 13 mmol/L; Blood Urea Nitrogen 33 mg/dL (9-20); Calcium 8.9 mg/dL (8.4-10.2); Carbon Dioxide 22 mmol/L (22-30); Chloride 108 mmol/L (98-107); Glucose 106 mg/dL (74-99); Magnesium 1.7 mg/dL (1.6-2.3); Non-African American GFR(MDRD) 53 (>60 ml/min/1.73 sqM); Potassium 4.4 mmol/L (3.5-5.1); Sodium 143 mmol/L (137-145); Total Bilirubin 0.6 mg/dL (0.2-1.3); Total Protein 6.6 g/dL (6.3-8.2)
[2016-11-29 15:25] LABS: Partial Thromboplastin Time 23.8 sec (22.0-30.0); Prothrombin Time 10.5 sec (9.0-12.0)
[2016-11-29] MEDS: HEPARIN SODIUM,PORCINE/D5W PMX 25,000 UNIT in DEXTROSE/WATER 1 500ML.BAG IV SCH (15:25)
--- NOTE | 2016-11-29 15:27 | XR ---
EXAMINATION TYPE: XR chest 2V DATE OF EXAM: 11/29/2016 3:13 PM COMPARISON: 10/14/2016 TECHNIQUE: PA and lateral views submitted. HISTORY: Chest pain FINDINGS: The lungs are clear and there is no pneumothorax, pleural effusion, or focal pneumonia. Heart is en larged and there is hyperinflation suggestive of COPD. Arthropathy of the shoulders. Hypertrophic and degenerative change of the spine. No overt failure. IMPRESSION: 1. No acute process.
[2016-11-29 15:57] LABS: Creatine Kinase MB 2.8 ng/mL (0.0-2.4); Troponin I 0.113 ng/mL (0.000-0.034)
[2016-11-29 17:30] VITALS: BMI 41.1
[2016-11-29 21:13] LABS: Creatine Kinase MB 2.5 ng/mL (0.0-2.4)
[2016-11-29 21:14] LABS: Troponin I 0.087 ng/mL (0.000-0.034)
[2016-11-29] MEDS: HEPARIN SODIUM,PORCINE 5,000 UNIT/ML 1 ML VIAL IV PRN (21:18)
[2016-11-30 03:16] LABS: Mean Platelet Volume 7.4
[2016-11-30] MEDS: HEPARIN SODIUM,PORCINE 5,000 UNIT/ML 1 ML VIAL IV PRN (03:36)
[2016-11-30 03:48] LABS: Creatine Kinase MB 2.2 ng/mL (0.0-2.4)
[2016-11-30 03:56] LABS: Troponin I 0.088 ng/mL (0.000-0.034)
[2016-11-30 03:58] LABS: Cholesterol 154 mg/dL (<200); HDL Cholesterol 49 mg/dL (40-60); Triglycerides 174 mg/dL (<150)
[2016-11-30] MEDS: HEPARIN SODIUM,PORCINE/D5W PMX 25,000 UNIT in DEXTROSE/WATER 1 500ML.BAG IV SCH ×2 (08:34→22:17)
[2016-11-30] MEDS ORDERED: ASPIRIN 325 MG TAB PO SCH (09:00)
--- NOTE | 2016-11-30 09:01 | P.CRDCN ---
<Domonique Holland E - Last Filed: 11/30/16 09:02> History of Present Illness Consult date: 11/30/16 Requesting physician: Megan Oliva Consult reason: atrial fibrillation Chief complaint: Lightheadedness and near syncope History of present illness: This is a 56-year-old gentleman with history of hypertension, hyperlipidemia, COPD, nicotine dependence, paroxysmal atrial fibrillation with prior cardioversion and EP studies, he follows with Dr. Abner Lou in the office. Patient had been on anticoagulation in the past but because of GI bleeding this had been discontinued. He was recently in the hospital in October of this year with congestive heart failure. An echocardiogram with Doppler study was performed at that time which revealed an ejection fraction of 40-45%. According to the patient, he received a call from his primary care doctor's office regarding some abnormal blood work and was recommended to come directly to the emergency room. Overall, the patient states he was feeling mildly lightheaded like he may pass out. His blood pressure on arrival was 92/50, he was in atrial fibrillation, with a heart rate in the 130s. Overall, patient states he's been feeling quite well at home. No recent shortness of breath, no palpitations, no recent black stool or blood in the stool. Patient was initiated on IV heparin and IV Cardizem on presentation here. The Cardizem has since been discontinued. Patient continues to be in atrial fibrillation this morning heart rate in the 70s. EKG on arrival showed atrial fibrillation with a rapid ventricular response. Chest x-ray did not reveal any acute process. White blood cell count 5.6, hemoglobin 15.2. D-dimer 0.2. Potassium 4.4, BUN 33, creatinine 1.4. Magnesium level I.7. BNP level 1880. Troponins 0.113, 0.087, 0.088. Past Medical History Past Medical History: Atrial Fibrillation, Atrial Flutter, Heart Failure, GI Bleed, Hypertension Additional Past Medical History / Comment(s): clot behind heart 4 years ago History of Any Multi-Drug Resistant Organisms: MRSA Date of last positivie culture/infection: 5 YEARS AGO MDRO Source:: LEFT ABD Past Surgical History: Bowel Resection Additional Past Surgical History / Comment(s): COLON SX Past Psychological History: Anxiety, Depression Smoking Status: Current some day smoker Past Alcohol Use History: Rare Past Drug Use History: None Reported - Past Family History Mother Family Medical History: Cancer Father Family Medical History: Cancer, Chest Pain / Angina, Diabetes Mellitus, Hypertension Medications and Allergies Home Medications Medication Instructions Recorded Confirmed Type Acetaminophen Tab [Tylenol Tab] 1,500 mg PO DAILY PRN 11/29/16 11/29/16 History Atenolol [Tenormin] 25 mg PO DAILY 11/29/16 11/29/16 History Furosemide [Lasix] 40 mg PO BID 11/29/16 11/29/16 History Spironolactone [Aldactone] 25 mg PO HS 11/29/16 11/29/16 History Allergies Allergy/AdvReac Type Severity Reaction Status Date / Time No Known Allergies Allergy Verified 11/29/16 16:17 Physical Exam Vitals: Vital Signs Temp Pulse Pulse Pulse Resp BP BP 11/30/16 08:20 96.8 F L 68 16 161/88 11/30/16 04:00 97.0 F L 74 18 151/81 11/30/16 00:00 97.0 F L 72 18 143/71 11/29/16 20:00 97.1 F L 88 18 132/74 11/29/16 17:10 97.5 F L 100 100 18 146/75 11/29/16 16:41 96.8 F L 97 18 120/72 11/29/16 15:00 108 H 18 99/54 11/29/16 14:40 98.2 F 134 H 16 106/75 11/29/16 14:16 97.2 F L 81 18 93/50 Pulse Ox 11/30/16 08:20 97 11/30/16 04:00 97 11/30/16 00:00 94 L 11/29/16 20:00 99 11/29/16 17:10 96 11/29/16 16:41 97 11/29/16 15:00 98 11/29/16 14:40 97 11/29/16 14:16 95 Intake and Output 11/29/16 11/30/16 11/30/16 22:59 06:59 14:59 Intake Total 357.549 180.243 184.959 Balance 357.549 180.243 184.959 Intake: Intake, IV Titration 117.549 180.243 184.959 Amount Heparin Sodium,Porcine/ 117.549 180.243 184.959 D5w Pmx 25,000 unit In Dextrose/Water 1 500ml. bag @ 6.95 UNITS/KG/HR 19 .98 mls/hr IV .Q24H [facility] Rx#:[id number] Oral 240 Other: # Voids 0 1 Weight 149.1 kg 149.4 kg PHYSICAL EXAMINATION: HEENT: Head is atraumatic, normocephalic. Pupils equal, round. Neck is supple. There is no elevated jugular venous pressure. HEART EXAMINATION: Heart S1 and S2 irregularly irregular CHEST EXAMINATION: Are clear with mild diminished air entry to posterior bases. ABDOMEN: Soft, obese, nontender. Bowel sounds are heard. No organomegaly noted. EXTREMITIES: 2+ peripheral pulses with trace evidence of peripheral edema and no calf tenderness noted. NEUROLOGIC patient is awake, alert and oriented -3. . Results 11/30/16 03:04 11/29/16 14:58 Cardiac Enzymes 11/29/16 11/29/16 11/29/16 Range/Units 14:58 14:58 20:26 AST 33 (17-59) U/L CK-MB (CK-2) 2.8 H* 2.5 H* (0.0-2.4) ng/mL Troponin I 0.113 H* 0.087 H* (0.000-0.034) ng/mL 11/30/16 Range/Units 03:04 AST (17-59) U/L CK-MB (CK-2) 2.2 (0.0-2.4) ng/mL Troponin I 0.088 H* (0.000-0.034) ng/mL Coagulation 11/29/16 11/29/16 11/30/16 Range/Units 14:58 20:26 03:04 PT 10.5 (9.0-12.0) sec APTT 23.8 27.1 37.1 H (22.0-30.0) sec Lipids 11/30/16 Range/Units 03:04 Triglycerides 174 H (<150) mg/dL Cholesterol 154 (<200) mg/dL HDL Cholesterol 49 (40-60) mg/dL CBC 11/29/16 11/30/16 Range/Units 14:58 03:04 WBC 5.6 (3.8-10.6) k/uL RBC 5.63 (4.30-5.90) m/uL Hgb 15.2 (13.0-17.5) gm/dL Hct 47.9 (39.0-53.0) % Plt Count 238 185 (150-450) k/uL Comprehensive Metabolic Panel 11/29/16 Range/Units 14:58 Sodium 143 (137-145) mmol/L Potassium 4.4 (3.5-5.1) mmol/L Chloride 108 H (98-107) mmol/L Carbon Dioxide 22 (22-30) mmol/L BUN 33 H (9-20) mg/dL Creatinine 1.40 H (0.66-1.25) mg/dL Glucose 106 H (74-99) mg/dL Calcium 8.9 (8.4-10.2) mg/dL AST 33 (17-59) U/L ALT 23 (21-72) U/L Alkaline Phosphatase 88 (38-126) U/L Total Protein 6.6 (6.3-8.2) g/dL Albumin 4.0 (3.5-5.0) g/dL Current Medications Generic Name Dose Route Start Last Admin Trade Name Freq PRN Reason Stop Dose Admin Aspirin 325 mg 11/30/16 09:00 Aspirin PO DAILY [facility] Atorvastatin Calcium 80 mg 11/30/16 09:00 Lipitor PO DAILY [facility] Heparin Sodium (Porcine) 0 unit 11/29/16 14:47 11/30/16 03:36 Heparin IV 4,000 unit Q6HR PRN Administration Low PTT Protocol Diltiazem HCl 125 mg/ Sodium 125 mls @ 5 mls/hr 11/29/16 14:47 11/29/16 15:22 Chloride IV 11/30/16 14:46 5 mg/hr .Q24H ONE 5 mls/hr 5 MG/HR Administration Heparin Sodium/Dextrose 25,000 500 mls @ 19.98 mls/hr 11/29/16 15:00 08:34 unit/ IV Solution IV 12.95 units/kg/hr .Q24H [facility] 37.24 mls/hr Protocol Administration 6.95 UNITS/KG/HR Nitroglycerin 0.4 mg 11/29/16 14:47 Nitrostat SUBLINGUAL Q5M PRN Chest Pain Intake and Output 11/29/16 11/30/16 11/30/16 22:59 06:59 14:59 Intake Total 357.549 180.243 184.959 Balance 357.549 180.243 184.959 Intake: Intake, IV Titration 117.549 180.243 184.959 Amount Heparin Sodium,Porcine/ 117.549 180.243 184.959 D5w Pmx 25,000 unit In Dextrose/Water 1 500ml. bag @ 6.95 UNITS/KG/HR 19 .98 mls/hr IV .Q24H [facility] Rx#:[id number] Oral 240 Other: # Voids 0 1 Weight 149.1 kg 149.4 kg 11/30/16 03:04 11/29/16 14:58 EKG Interpretations (text) EKG shows atrial fibrillation with a rapid ventricular response. Assessment and Plan Plan: Assessment and plan #1 atrial fibrillation with rapid ventricular response. Patient has history of paroxysmal atrial fibrillation. Not a candidate for anticoagulation because of GI bleeding on xarelto. Echo performed last month revealed an ejection fraction of 40-45%. #2 diastolic congestive heart failure acute on chronic #3 hyperlipidemia #4 hypertension #5 asthma #6 nicotine dependence #7 acute on chronic renal failure #8 abnormal troponins, not consistent with acute coronary syndrome. Could be secondary to atrial fibrillation with rapid ventricular response and oxygen supply and demand mismatch. Plan We will start the patient on Lopressor 25 mg one tablet by mouth twice a day. Discontinue IV Cardizem drip. Check free T4 and TSH level. Decrease aspirin 81 mg daily. Further recommendations to follow. DNP note has been reviewed, I agree with a documented findings and plan of care. Patient was seen and examined. <Carlos Howe - Last Filed: 11/30/16 09:46> Physical Exam Vitals: Vital Signs Temp Pulse Pulse Pulse Resp BP BP 11/30/16 08:20 96.8 F L 68 16 161/88 11/30/16 04:00 97.0 F L 74 18 151/81 11/30/16 00:00 97.0 F L 72 18 143/71 11/29/16 20:00 97.1 F L 88 18 132/74 11/29/16 17:10 97.5 F L 100 100 18 146/75 11/29/16 16:41 96.8 F L 97 18 120/72 11/29/16 15:00 108 H 18 99/54 11/29/16 14:40 98.2 F 134 H 16 106/75 11/29/16 14:16 97.2 F L 81 18 93/50 Pulse Ox 11/30/16 08:20 97 11/30/16 04:00 97 11/30/16 00:00 94 L 11/29/16 20:00 99 11/29/16 17:10 96 11/29/16 16:41 97 11/29/16 15:00 98 11/29/16 14:40 97 11/29/16 14:16 95 Intake and Output 11/29/16 11/30/16 11/30/16 22:59 06:59 14:59 Intake Total 357.549 180.243 184.959 Balance 357.549 180.243 184.959 Intake: Intake, IV Titration 117.549 180.243 184.959 Amount Heparin Sodium,Porcine/ 117.549 180.243 184.959 D5w Pmx 25,000 unit In Dextrose/Water 1 500ml. bag @ 6.95 UNITS/KG/HR 19 .98 mls/hr IV .Q24H [facility] Rx#:[id number] Oral 240 Other: # Voids 0 1 Weight 149.1 kg 149.4 kg Results 11/30/16 03:04 11/29/16 14:58 Cardiac Enzymes 11/29/16 11/29/16 11/29/16 Range/Units 14:58 14:58 20:26 AST 33 (17-59) U/L CK-MB (CK-2) 2.8 H* 2.5 H* (0.0-2.4) ng/mL Troponin I 0.113 H* 0.087 H* (0.000-0.034) ng/mL 11/30/16 Range/Units 03:04 AST (17-59) U/L CK-MB (CK-2) 2.2 (0.0-2.4) ng/mL Troponin I 0.088 H* (0.000-0.034) ng/mL Coagulation 11/29/16 11/29/16 11/30/16 Range/Units 14:58 20:26 03:04 PT 10.5 (9.0-12.0) sec APTT 23.8 27.1 37.1 H (22.0-30.0) sec 11/30/16 Range/Units 08:30 PT (9.0-12.0) sec APTT 54.5 H (22.0-30.0) sec Lipids 11/30/16 Range/Units 03:04 Triglycerides 174 H (<150) mg/dL Cholesterol 154 (<200) mg/dL HDL Cholesterol 49 (40-60) mg/dL CBC 11/29/16 11/30/16 Range/Units 14:58 03:04 WBC 5.6 (3.8-10.6) k/uL RBC 5.63 (4.30-5.90) m/uL Hgb 15.2 (13.0-17.5) gm/dL Hct 47.9 (39.0-53.0) % Plt Count 238 185 (150-450) k/uL Comprehensive Metabolic Panel 11/29/16 Range/Units 14:58 Sodium 143 (137-145) mmol/L Potassium 4.4 (3.5-5.1) mmol/L Chloride 108 H (98-107) mmol/L Carbon Dioxide 22 (22-30) mmol/L BUN 33 H (9-20) mg/dL Creatinine 1.40 H (0.66-1.25) mg/dL Glucose 106 H (74-99) mg/dL Calcium 8.9 (8.4-10.2) mg/dL AST 33 (17-59) U/L ALT 23 (21-72) U/L Alkaline Phosphatase 88 (38-126) U/L Total Protein 6.6 (6.3-8.2) g/dL Albumin 4.0 (3.5-5.0) g/dL Current Medications Generic Name Dose Route Start Last Admin Trade Name Freq PRN Reason Stop Dose Admin Aspirin 81 mg 12/01/16 09:00 Aspirin PO DAILY [facility] Atorvastatin Calcium 80 mg 11/30/16 09:00 Lipitor PO DAILY [facility] Heparin Sodium (Porcine) 0 unit 11/29/16 14:47 11/30/16 03:36 Heparin IV 4,000 unit Q6HR PRN Administration Low PTT Protocol Heparin Sodium/Dextrose 25,000 500 mls @ 19.98 mls/hr 11/29/16 15:00 08:34 unit/ IV Solution IV 12.95 units/kg/hr .Q24H [facility] 37.24 mls/hr Protocol Administration 6.95 UNITS/KG/HR Metoprolol Tartrate 50 mg 11/30/16 21:00 Lopressor PO BID [facility] Nitroglycerin 0.4 mg 11/29/16 14:47 Nitrostat SUBLINGUAL Q5M PRN Chest Pain Intake and Output 11/29/16 11/30/16 11/30/16 22:59 06:59 14:59 Intake Total 357.549 180.243 184.959 Balance 357.549 180.243 184.959 Intake: Intake, IV Titration 117.549 180.243 184.959 Amount Heparin Sodium,Porcine/ 117.549 180.243 184.959 D5w Pmx 25,000 unit In Dextrose/Water 1 500ml. bag @ 6.95 UNITS/KG/HR 19 .98 mls/hr IV .Q24H [facility] Rx#:[id number] Oral 240 Other: # Voids 0 1 Weight 149.1 kg 149.4 kg 11/30/16 03:04 11/29/16 14:58
[2016-11-30] MEDS ORDERED: METOPROLOL TARTRATE 25 MG TAB PO SCH (09:15)
[2016-11-30] MEDS ORDERED: METOPROLOL TARTRATE 50 MG TAB PO STA (10:05)
[2016-11-30] MEDS: ATORVASTATIN 80 MG TAB PO SCH (10:19)
--- NOTE | 2016-11-30 21:31 | HP ---
Patient is a pleasant 56-year-old gentleman who came in with complaints of lightheadedness and to pass out, near syncopal episode, and patient was found to have low blood pressure and patient was also found to be in atrial fibrillation with rapid ventricular rate, with heart rate going up to 130s. Patient was subsequently admitted, was started on Cardizem drip which was subsequently discontinued. Patient has ejection fraction of around 40% to 45%. Patient was also found to be in acute renal failure, because of which his diuretic therapy, lisinopril, is being held. Patient is not in CHF exacerbation at this point of time. Patient also may not benefit from Aldactone because his EF is around 40% to 45%. Patient follows with Dr. Randy Lou as an outpatient. Patient had cardioversion and EP studies in the past. Patient was started on beta georges. Cardizem drip was discontinued. TSH was obtained and essentially within normal limits. REVIEW OF SYSTEMS: CONSTITUTIONAL: No fever, no malaise, no fatigue. HEENT: No recent visual problems or hearing problems. Denied any sore throat. CARDIOVASCULAR: As described in HPI. Patient denied any chest pain, orthopnea, PND, shortness of breath. PULMONARY: No shortness of breath, no cough, no hemoptysis. GASTROINTESTINAL: No diarrhea, no nausea, no vomiting, no abdominal pain. Normoactive bowel sounds. NEUROLOGICAL: No headaches, no weakness, no numbness. HEMATOLOGICAL: Denies any bleeding or petechiae. GENITOURINARY: Denies any burning micturition, frequency, or urgency. MUSCULOSKELETAL/RHEUMATOLOGICAL: Denies any joint pain, swelling, or any muscle pain. ENDOCRINE: Denies any polyuria or polydipsia. The rest of the 14 point review of systems is negative. PAST MEDICAL HISTORY: Atrial fibrillation, congestive heart failure, chronic systolic dysfunction, GI bleed in the past, because of which his Coumadin and anticoagulation was discontinued. Patient is not on any anticoagulation at this point of time; hypertension, MRSA in the past, bowel resection that is colonic resection, anxiety, depression. Patient continues to smoke. Denied any alcohol abuse or any drug abuse. FAMILY HISTORY: Significant for mother with cancer and father had some kind of cancer, diabetes mellitus and hypertension. HOME MEDICATIONS: 1. Atenolol. 2. Spironolactone. 3. Lasix. 4. Lisinopril. 5. Acetaminophen. ALLERGIES: No known drug allergies. VITAL SIGNS: Temperature 97.0, pulse of 67, respiratory rate of 16, blood pressure is 139/96, saturating at 96% on room air. PHYSICAL EXAMINATION: GENERAL: The patient is alert and oriented x3, not in any acute distress. Well developed, well nourished. HEENT: Pupils are round and equally reacting to light. EOMI. No scleral icterus. No conjunctival pallor. Normocephalic, atraumatic. No pharyngeal erythema. No thyromegaly. CARDIOVASCULAR: S1 and S2 present. No murmurs, rubs, or gallops. PULMONARY: Chest is clear to auscultation, no wheezing or crackles. ABDOMEN: Soft, nontender, nondistended, normoactive bowel sounds. No palpable organomegaly. MUSCULOSKELETAL: No joint swelling or deformity. EXTREMITIES: Patient does not have any pedal edema, but patient does have significant varicosities. NEUROLOGICAL: Gross neurological examination did not reveal any focal deficits. SKIN: No rashes. LABORATORY DATA: CBC, basic metabolic profile are abnormal for elevated creatinine of 1.40, BUN of 33. His normal creatinine, I believe, is within normal limits; that is, below 1: 0.94 and 0.8 in month of October. ASSESSMENT AND PLAN: 1. Atrial fibrillation with rapid ventricular rate, probably related to dehydration and intravascular volume depletion from excessive diuretic therapy and lisinopril, which will be held and patient probably has dizziness secondary to that and patient was started on metoprolol. The patient in the past had massive gastrointestinal bleed secondary to anticoagulation. There is newer anticoagulant, Xarelto, which is not being continued at this point of time. Leave decision of anticoagulation to Cardiology. 2. Chronic systolic dysfunction with mildly depressed ejection fraction of around 40% along with chronic diastolic dysfunction. Since because of the renal dysfunction, all the diuretic therapy, including Aldactone, Lasix are being discontinued, lisinopril is being discontinued as well. 3. Acute renal failure secondary to excessive diuretic therapy which may have led to his hypertension and frustration of atrial fibrillation. 4. Hyperlipidemia. 5. Nicotine dependence. 6. Chronic obstructive pulmonary disease without any acute exacerbation. 7. Mildly elevated troponin secondary to renal dysfunction and atrial fibrillation with rapid ventricular rate, leading to ( ) mismatch. D-dimer is negative.
[2016-11-30] MEDS: METOPROLOL TARTRATE 50 MG TAB PO SCH (21:50)
[2016-12-01 00:32] VITALS: RESP 18
[2016-12-01 05:03] VITALS: PULSE 75
[2016-12-01 06:31] LABS: Anion Gap 6 mmol/L; Blood Urea Nitrogen 24 mg/dL (9-20); Calcium 9.1 mg/dL (8.4-10.2); Carbon Dioxide 23 mmol/L (22-30); Chloride 109 mmol/L (98-107); Glucose 118 mg/dL (74-99); Non-African American GFR(MDRD) >60 (>60 ml/min/1.73 sqM); Potassium 4.4 mmol/L (3.5-5.1); Sodium 138 mmol/L (137-145)
[2016-12-01] MEDS: ATORVASTATIN 80 MG TAB PO SCH (08:42)
[2016-12-01] MEDS: METOPROLOL TARTRATE 50 MG TAB PO SCH (08:42)
[2016-12-01] MEDS ORDERED: ASPIRIN 81 MG CHEW PO SCH (09:00)
--- NOTE | 2016-12-01 11:55 | PN ---
Tomas Corral is a 56-year-old male patient who has atrial fibrillation. He presented with lightheadedness initially. He has been doing well since his admission. His atrial fibrillation rates are controlled. On examination, he is afebrile, 97.7 degrees Fahrenheit. Pulse rate in the 70s. Blood pressure 137/76 mmHg. Head and neck examination normal. Heart sounds normal. Lungs clear to auscultation. Extremities warm and no edema. Suggest: Continue Metoprolol 50 mg twice daily and continue baby aspirin. He has had a history of GI bleed and but once the source of the gastrointestinal bleed is treated, he should be placed back on an anticoagulant for stroke prevention of his atrial fibrillation as an outpatient.
[2016-12-01 12:12] VITALS: BP 136/81; TEMP 98.1
--- NOTE | 2017-01-04 12:27 | DS ---
The patient is a 56 year old came in with syncopal episode. The patient was found to be in atrial fibrillation with fast ventricular rate. The patient was intravascular volume depleted because of which diuretic therapy was temporarily held. The patient was discharged on December 01. The patient was seen and examined on the day of discharge. Vital signs are stable. ( ). FINAL DIAGNOSES: 1. Atrial fibrillation with rapid ventricular rate. 2. Lisinopril discontinued and the patient was started on ( ). 3. Regarding anticoagulation, please refer to cardiology's dictation. 4. Please refer to depart summary. 5. Chronic systolic dysfunction. 6. Mildly depressed ejection fraction with chronic diastolic dysfunction without any acute exacerbation. 7. Acute renal failure due to excessive diuretic therapy which was held which precipitated the atrial fibrillation. 8. Hyperlipidemia. 9. Nicotine dependence. 10. Chronic obstructive pulmonary disease without ay acute exacerbation. 11. Minimally elevated troponin secondary to atrial fibrillation. The patient's Losartan dose was continued at 50 mg p.o. daily. Metoprolol dose was changed to 50 p.o. b.i.d. and Lasix dose was changed to 40 mg daily. Aldactone was discontinued. The patient's kidney function improved after holding diuretic therapy for a day and shabnam inhibitor therapy for a day. Spent greater than 35 minutes in total discharge process. For follow ups, please refer to the depart summary. MTDD
== END 2016-12-01 16:03 | disposition home or self-care (01) | DRG 308 ==
LOC: EC 14:03 → 6SEL 14:47 → 5MS5E 15:50 → UNDOADMIN 15:50 → 6SEL 17:19
PROVIDERS: ADMIT Hospitalist; ATTEND Hospitalist
DX: I48.0 Paroxysmal atrial fibrillation (principal); I50.43 Acute on chronic combined systolic (congestive) and diastolic (congestive) heart failure; N17.9 Acute kidney failure, unspecified; N18.9 Chronic kidney disease, unspecified; I13.0 Hypertensive heart and chronic kidney disease with heart failure and stage 1 through stage 4 chronic kidney disease, or unspecified chronic kidney disease; E78.5 Hyperlipidemia, unspecified; J45.909 Unspecified asthma, uncomplicated; J44.9 Chronic obstructive pulmonary disease, unspecified; E86.0 Dehydration; F17.200 Nicotine dependence, unspecified, uncomplicated; Z86.14 Personal history of Methicillin resistant Staphylococcus aureus infection; Z79.899 Other long term (current) drug therapy; Z82.49 Family history of ischemic heart disease and other diseases of the circulatory system; Z86.59 Personal history of other mental and behavioral disorders; I48.92 Unspecified atrial flutter
CPT/HCPCS: 36415; 71020; 80048; 80053; 80061; 82550; 82553; 83735; 83880; 84443; 84484; 85025; 85049; 85379; 85610; 85730; 93005; 96365; 96366; 96368; 96376; 99291

== ENCOUNTER 2018-04-08 10:06 | Inpatient (IN) | payer BC, OTHER ==
[2018-04-08] MEDS ORDERED: SODIUM CHLORIDE 0.9% 1,000 ML IV ONE ×2 (10:29→11:16)
--- NOTE | 2018-04-08 10:44 | ED ---
Extremity Problem HPI - General Chief complaint: Extremity Problem,Nontraumatic Stated complaint: LEG INFECTION Time Seen by Provider: 04/08/18 10:19 Source: patient, RN notes reviewed Mode of arrival: ambulatory Limitations: no limitations - History of Present Illness Initial comments: This a 57-year-old male presents emergency Department with chief complaint of leg pain and sores. He states that they have been there for several months to one year. Patient states that he cannot tolerate the pain, follow order and drainage. He states that his left leg is worse states that it drains to 1 and fills up his shoe when he stands at work. He states that he saw a physician approximately one year ago for these but has never followed up since. Patient states he has take Tylenol daily because of the symptoms. Patient also states that his right leg has varicose veins that ruptured 2 nights ago states that it was bleeding profusely for a while until he passed out. Patient denies any current chest pain or shortness of breath. He states he does feel very weak, run down and states that he feels that he just needs to sleep. Patient does have a history of A. fib he has never been told that he is diabetic does not take any current medications other than Tylenol. - Related Data Home Medications Medication Instructions Recorded Confirmed Acetaminophen Tab [Tylenol] 1,500 mg PO DAILY PRN 11/29/16 11/29/16 Previous Rx's Medication Instructions Recorded Losartan [Cozaar] 50 mg PO DAILY #30 tab 10/17/16 Aspirin 81 mg PO DAILY #30 chewable 12/01/16 Furosemide [Lasix] 40 mg PO DAILY #0 12/01/16 Metoprolol Tartrate [Lopressor] 50 mg PO BID #60 tab 12/01/16 Allergies Allergy/AdvReac Type Severity Reaction Status Date / Time No Known Allergies Allergy Verified 04/08/18 10:14 Review of Systems ROS Statement: Those systems with pertinent positive or pertinent negative responses have been documented in the HPI. ROS Other: All systems not noted in ROS Statement are negative. Past Medical History Past Medical History: Atrial Fibrillation, Atrial Flutter, Heart Failure, GI Bleed, Hypertension Additional Past Medical History / Comment(s): clot behind heart 4 years ago History of Any Multi-Drug Resistant Organisms: MRSA Date of last positivie culture/infection: 5 YEARS AGO MDRO Source:: LEFT ABD Past Surgical History: Bowel Resection Additional Past Surgical History / Comment(s): COLON SX Past Psychological History: Anxiety, Depression Smoking Status: Current every day smoker Past Alcohol Use History: Occasional Past Drug Use History: None Reported - Past Family History Mother Family Medical History: Cancer Father Family Medical History: Cancer, Chest Pain / Angina, Diabetes Mellitus, Hypertension General Exam Limitations: no limitations General appearance: alert, in no apparent distress Head exam: Present: atraumatic, normocephalic, normal inspection Respiratory exam: Present: normal lung sounds bilaterally. Absent: respiratory distress, wheezes, rales, rhonchi, stridor Cardiovascular Exam: Present: tachycardia, irregular rhythm, normal heart sounds. Absent: normal rhythm, systolic murmur, diastolic murmur, rubs, gallop , clicks Extremities exam: Present: other (Left lower extremity there are 2 large areas of ulcerations largest approximately 5 cm, purulent drainage, fall order noted there multiple varicosities of bilateral lower extremities with pulses equal bilaterally there is mild swelling noted bilateral lower extremities) Skin exam: Present: warm, dry. Absent: intact, normal color, rash Course Vital Signs 04/08/18 10:10 Temperature 97.8 F Pulse Rate 113 H Respiratory 20 Rate Blood Pressure 153/80 O2 Sat by Pulse 97 Oximetry - Reevaluation(s) Reevaluation #1: 04/08/18 11:28 Nurse informed me that lab value of a lactic acid 3 was reported. Patient is not hypotensive and lactic is not greater than 4. Patient does not need a 30- 40 mL per kilo bolus. Patient was given 2 L of fluid. Patient also is found to be anemic at 7 and and current A. fib with RVR. Cardizem is ordered. Medical Decision Making - Lab Data Result diagrams: 04/08/18 10:36 04/08/18 10:36 Lab Results 04/08/18 04/08/18 04/08/18 Range/Units 10:36 10:36 10:36 WBC 5.9 (3.8-10.6) k/uL RBC 2.87 L (4.30-5.90) m/uL Hgb 7.0 L (13.0-17.5) gm/dL Hct 23.8 L (39.0-53.0) % MCV 83.0 (80.0-100.0) fL MCH 24.2 L (25.0-35.0) pg MCHC 29.2 L (31.0-37.0) g/dL RDW 18.5 H (11.5-15.5) % Plt Count 364 (150-450) k/uL Neutrophils % 64 % Lymphocytes % 20 % Monocytes % 7 % Eosinophils % 8 % Basophils % 1 % Neutrophils # 3.8 (1.3-7.7) k/uL Lymphocytes # 1.2 (1.0-4.8) k/uL Monocytes # 0.4 (0-1.0) k/uL Eosinophils # 0.5 (0-0.7) k/uL Basophils # 0.1 (0-0.2) k/uL Hypochromasia Marked Anisocytosis Slight Microcytosis Slight PT (9.0-12.0) sec INR (<1.2) APTT (22.0-30.0) sec Sodium 139 (137-145) mmol/L Potassium 4.8 (3.5-5.1) mmol/L Chloride 108 H (98-107) mmol/L Carbon Dioxide 23 (22-30) mmol/L Anion Gap 8 mmol/L BUN 21 H (9-20) mg/dL Creatinine 1.11 (0.66-1.25) mg/dL Est GFR (CKD-EPI)AfAm 86 (>60 ml/min/1.73 sqM) Est GFR (CKD-EPI)NonAf 74 (>60 ml/min/1.73 sqM) Glucose 129 H (74-99) mg/dL Plasma Lactic Acid Luis (0.7-2.0) mmol/L Calcium 8.4 (8.4-10.2) mg/dL Total Bilirubin 1.0 (0.2-1.3) mg/dL AST 43 (17-59) U/L ALT 17 L (21-72) U/L Alkaline Phosphatase 111 (38-126) U/L Troponin I <0.012 (0.000-0.034) ng/mL C-Reactive Protein 8.6 (<10.0) mg/L Total Protein 6.3 (6.3-8.2) g/dL Albumin 3.4 L (3.5-5.0) g/dL 04/08/18 04/08/18 Range/Units 10:36 10:36 WBC (3.8-10.6) k/uL RBC (4.30-5.90) m/uL Hgb (13.0-17.5) gm/dL Hct (39.0-53.0) % MCV (80.0-100.0) fL MCH (25.0-35.0) pg MCHC (31.0-37.0) g/dL RDW (11.5-15.5) % Plt Count (150-450) k/uL Neutrophils % % Lymphocytes % % Monocytes % % Eosinophils % % Basophils % % Neutrophils # (1.3-7.7) k/uL Lymphocytes # (1.0-4.8) k/uL Monocytes # (0-1.0) k/uL Eosinophils # (0-0.7) k/uL Basophils # (0-0.2) k/uL Hypochromasia Anisocytosis Microcytosis PT 11.1 (9.0-12.0) sec INR 1.2 H (<1.2) APTT 23.2 (22.0-30.0) sec Sodium (137-145) mmol/L Potassium (3.5-5.1) mmol/L Chloride (98-107) mmol/L Carbon Dioxide (22-30) mmol/L Anion Gap mmol/L BUN (9-20) mg/dL Creatinine (0.66-1.25) mg/dL Est GFR (CKD-EPI)AfAm (>60 ml/min/1.73 sqM) Est GFR (CKD-EPI)NonAf (>60 ml/min/1.73 sqM) Glucose (74-99) mg/dL Plasma Lactic Acid Luis 3.0 H* (0.7-2.0) mmol/L Calcium (8.4-10.2) mg/dL Total Bilirubin (0.2-1.3) mg/dL AST (17-59) U/L ALT (21-72) U/L Alkaline Phosphatase (38-126) U/L Troponin I (0.000-0.034) ng/mL C-Reactive Protein (<10.0) mg/L Total Protein (6.3-8.2) g/dL Albumin (3.5-5.0) g/dL - EKG Data EKG Comments: EKG performed at 10:57 A. fib with RVR rate of 114 QRS 94 QT/QTC 366/504 Disposition Clinical Impression: Atrial fibrillation with RVR, Infected stasis ulcer of left lower extremity, Varicose veins of both legs with edema, Anemia, Syncope Disposition: ADMITTED IP TO THIS HOSP Condition: Fair Referrals: Casey Varner MD [Primary Care Provider] - 1-2 days Time of Disposition: 11:49
[2018-04-08 10:51] LABS: Anisocytosis Slight; Basophils # (A) 0.1 k/uL (0-0.2); Basophils % (A) 1 %; Eosinophils # (A) 0.5 k/uL (0-0.7); Eosinophils % (A) 8 %; HCT 23.8 % (39.0-53.0); Hypochromasia Marked; Lymphocytes # (A) 1.2 k/uL (1.0-4.8); Lymphocytes % (A) 20 %; MCH 24.2 pg (25.0-35.0); MCHC 29.2 g/dL (31.0-37.0); Mean Platelet Volume 6.8; Microcytosis Slight; Monocytes # (A) 0.4 k/uL (0-1.0); Monocytes % (A) 7 %; Neutrophils # (A) 3.8 k/uL (1.3-7.7); Neutrophils % (A) 64 %; Platelet Count 364 k/uL (150-450); RBC 2.87 m/uL (4.30-5.90); RDW 18.5 % (11.5-15.5); WBC 5.9 k/uL (3.8-10.6)
[2018-04-08 11:04] LABS: INR 1.2 (<1.2); Partial Thromboplastin Time 23.2 sec (22.0-30.0); Prothrombin Time 11.1 sec (9.0-12.0)
[2018-04-08 11:11] LABS: Albumin 3.4 g/dL (3.5-5.0); C Reactive Protein 8.6 mg/L (<10.0); Calcium 8.4 mg/dL (8.4-10.2); Potassium 4.8 mmol/L (3.5-5.1); Total Protein 6.3 g/dL (6.3-8.2)
--- NOTE | 2018-04-08 11:11 | XR ---
EXAMINATION TYPE: XR tibia fibula bilateral DATE OF EXAM: 04/08/2018 COMPARISON: NONE HISTORY: 57-year-old male bilateral leg infections, swelling and drainage for the past year, pain TECHNIQUE: 2 views each side FINDINGS: Diffuse subcutaneous soft tissue swelling seen throughout the lower extremities. No periostitis or os teolysis. The ankle and knee articulations are grossly intact. No soft tissue air. Moderate to large plantar calcaneal spurs. IMPRESSION: Diffuse subcutaneous soft tissue swelling could reflect venous stasis or cellulitis. No abnormal unde rlying bony changes.
[2018-04-08] MEDS ORDERED: DILTIAZEM DRIP BOLUS FROM BAG 1 MG SOLN IV ONE (11:16)
[2018-04-08] MEDS ORDERED: HYDROcodone/APAP 7.5-325MG 1 EACH TAB PO ONE (11:16)
[2018-04-08] MEDS ORDERED: VANCOMYCIN IV PER PHARMACY 1 EACH MISC MISCELLANE PRN (11:26)
[2018-04-08] MEDS ORDERED: DILTIAZEM 50 MG in SODIUM CHLORIDE 0.9% 40 ML IV SCH (11:30)
[2018-04-08] MEDS ORDERED: VANCOMYCIN 2,250 MG in SODIUM CHLORIDE 0.9% 500 ML 500 ML IVPB STA (11:31)
[2018-04-08] MEDS ORDERED: NALOXONE 0.4 MG/ML 1 ML VIAL IV PRN (11:44)
[2018-04-08] MEDS: SODIUM CHLORIDE 0.9% 1,000 ML IV SCH (14:31)
[2018-04-08] MEDS: PIPERACILLIN-TAZOBACTAM 3.375 GM in DEXTROSE/WATER 1 50ML.BAG IVPB SCH (15:50)
[2018-04-08] MEDS: HYDROcodone/APAP 5-325MG 1 EACH TAB PO PRN (15:51)
[2018-04-08] MEDS ORDERED: ACETAMINOPHEN TAB 325 MG TAB PO PRN (22:05)
[2018-04-08] MEDS ORDERED: CALCIUM CARBONATE 500 MG CHEWABLE PO PRN (22:05)
[2018-04-08] MEDS ORDERED: LACTULOSE 20 GM/30 ML CUP PO PRN (22:05)
[2018-04-08] MEDS ORDERED: MAGNESIUM HYDROXIDE 2,400 MG/10 ML CUP PO PRN (22:05)
[2018-04-08] MEDS ORDERED: ALPRAZolam 0.25 MG TAB PO PRN (22:05)
[2018-04-08] MEDS ORDERED: MELATONIN 3 MG TABLET PO PRN (22:05)
[2018-04-08] MEDS ORDERED: ONDANSETRON 4 MG/2 ML VIAL IVP PRN (22:05)
--- NOTE | 2018-04-08 22:54 | HP ---
HISTORY AND PHYSICAL DATE OF ADMISSION: 04/08/2018 DATE OF SERVICE: 04/08/2018 PRESENTING COMPLAINT: Passed out. HISTORY OF PRESENTING COMPLAINT: This is a pleasant 57-year-old patient of Dr. Varner. Patient does have chronic stable conditions, including congestive heart failure, EF 40%, hypertensive heart disease, secondary pulmonary hypertension, COPD, GERD, osteoarthritis. Patient ran out of insurance and never followed up; stopped taking his medications. 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 Five days ago the patient had blood pouring from his veins in the legs and then patient passed out. When he got up, there was a large pool of blood, but he felt so weak he just lay down in bed for the next 2 or 3 days. Finally he decided to get up and had his mother come in and bring him to the hospital. There was a large ulcer found on the left foot that was dressed up. Photographs were taken. Patient does feel tired and rundown. He was also found to be in atrial fibrillation with heart rate above 100. Admitted for the same. Because of bleeding, no anticoagulation was done. REVIEW OF SYSTEMS: CONSTITUTIONAL: Tired. HEENT: Dizziness. RESPIRATORY: Some shortness of breath, wheezing. CARDIOVASCULAR: No chest pain. GASTROINTESTINAL: None. GENITOURINARY: None. MUSCULOSKELETAL: Arthritic pain in the joints. DERMATOLOGICAL: Chronic skin changes in the lower extremities. HEMATOLOGICAL: As above. LYMPHATICS: None. PSYCHIATRY: None. NEUROLOGICAL: None. PAST MEDICAL HISTORY: 1. Congestive heart failure, EF 40%. 2. Hypertensive heart disease. 3. Pulmonary hypertension. 4. COPD. 5. Atrial fibrillation. 6. GERD. 7. Osteoarthritis. PAST SURGICAL HISTORY: 1. 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 2. Cardioversion. PSYCH HISTORY: Anxiety and depression. SOCIAL HISTORY: Patient lives in a hotel. He is able to drive. His mother drives him to appointments. 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 He has smoked about half a pack a day for close to 40 years. Patient drinks two fifths of whiskey on weekends. FAMILY HISTORY: Mother had breast cancer. She is 84 years of age. HOME MEDICATIONS: Tylenol. ALLERGIES: NONE. PHYSICAL EXAMINATION: VITAL SIGNS ON PRESENTATION: Temperature 97.8, pulse 113, respiration 20, blood pressure 150/80, pulse ox 97% on room air. GENERAL APPEARANCE: Well built; BMI 41.9. Lying in bed, awake. EYES: Pupils equal. Conjunctivae pale. HEENT: External appearance of nose and ears normal. Oral cavity normal. NECK: JVD not raised. Mass not palpable. RESPIRATORY: Effort normal. LUNGS: Decreased breath sounds. CARDIOVASCULAR: Heart sounds irregular. Some edema. ABDOMEN: Distended, soft. Liver and spleen not palpable. LYMPHATIC: No lymph node palpable in neck or axillae. PSYCHIATRY: Alert and oriented x3. Mood and affect normal. NEUROLOGICAL: Pupils equal. Cranial nerves grossly intact. Power and sensation decreased in the lower extremities. In the lower extremities there are prominent varicose veins and a dark hue. Left leg had a large ulcer which is currently covered up. Nails are dysmorphic. ASSESSMENT: 1. Severe bleeding from prominent varicose veins leading to acute severe blood loss anemia resulting in patient passing out. 2. Large venous ulcer on the left lower extremity with secondary infection. 3. Chronic congestive heart failure from systolic dysfunction, ejection fraction 40%. 4. Hypertensive heart disease. 5. Secondary pulmonary hypertension per history. 6. Chronic obstructive pulmonary disease in a current smoker. 7. Persistent atrial fibrillation with rapid ventricular rate. 8. Gastroesophageal reflux disease. 9. Primary osteoarthritis. 10.Morbid obesity with body mass index of 41.9. PLAN: Patient is currently started on IV Zosyn and vancomycin. Will start the patient on DuoNeb. Hold off any anticoagulation. Will start the patient on Lopressor 25 mg twice a day. Two-D echocardiogram and chest x-ray have also been ordered. Consultations made to Infectious Disease, Vascular and Cardiology. Also Social Work. Care was discussed with the patient. MMODL / IJN: [id number] /
[2018-04-08] MEDS: FAMOTIDINE 20 MG TAB PO SCH (22:59)
[2018-04-08] MEDS: VANCOMYCIN 2,250 MG in SODIUM CHLORIDE 0.9% 500 ML 500 ML IVPB SCH (22:59)
[2018-04-08] MEDS: NICOTINE 14MG/24HR PATCH TRANSDERM SCH (23:10)
--- NOTE | 2018-04-08 23:57 | CONS ---
CONSULTATION DATE OF SERVICE: 04/08/2018 REASON FOR CONSULTATION: Bilateral lower extremity wound cellulitis. HISTORY OF PRESENT ILLNESS: The patient is a 57-year-old male with a past medical history significant for chronic non-healing ulcer to his leg that has been there for more than a year now. The patient says he has been taking care of it himself and has not seen a physician in almost a year. He came to the ER this morning because of worsening pain in the leg and difficulty walking around with these wounds. Pain is described to be throbbing , almost 7 to 8 out of 10, especially when severe, and worse on walking relieves with rest. The patient also has some drainage from this wound, mostly foul-smelling, but he denies having any fever. With these symptoms, the patient was evaluated by the ER physician. The patient on arrival in the ER was afebrile. His white count was not significantly elevated. His hemoglobin was low at 7.0, creatinine 1.1. Lactic acid was elevated at 3.0. Liver enzymes are normal. The patient did have wound cultures obtained. He was started on vancomycin and Zosyn, admitted to hospital. X-rays of the leg were negative for an infection. Infectious Disease was consulted for further recommendations regarding antibiotic therapy. REVIEW OF SYSTEMS: CONSTITUTIONAL: Positive for weakness and some chills but no high-grade fever. EYES: No complaint. ENT: No complaint. RESPIRATORY: No complaint. CARDIOVASCULAR: No complaint. GENITOURINARY: No complaint. GASTROINTESTINAL: No complaint. MUSCULOSKELETAL: No complaint. INTEGUMENTARY: As per HPI. PSYCHOLOGICAL: No complaint. ENDOCRINE: No complaint. NEUROLOGICAL: No complaint. PAST MEDICAL HISTORY: 1. Atrial fibrillation. 2. Atrial flutter. 3. Heart failure. 4. GI bleed. 5. Hypertension. 6. Anxiety. 7. Depression. 8. Previous history of MRSA infection. PAST SURGICAL HISTORY: Bowel resection. SOCIAL HISTORY: Current everyday smoker. Occasionally drinks. No drug use. FAMILY HISTORY: Mother with history of cancer. Father has diabetes and hypertension. ALLERGIES: NO KNOWN DRUG ALLERGIES. CURRENT MEDICATIONS: 1. Vancomycin, Pharmacy to dose. 2. Tylenol. 3. [place]. 4. DuoNeb. 5. Xanax. 6. Tums. 7. Pepcid. 8. Lactulose. 9. Milk of Magnesia. 10.Melatonin. 11.Narcan. 12.Nicotine patch. 13.Zosyn. PHYSICAL EXAMINATION: Blood pressure is 136/73 with a pulse of 99, temperature 96. He is 92% on room air. General description is a middle-aged male lying in bed in no distress. No tachypnea or accessory muscle of respiration use. HEENT examination shows pallor. No scleral icterus. Oral mucous membrane is dry. No pharyngeal erythema or thrush. NECK: Trachea is central. No thyromegaly. LUNGS: Unlabored breathing. Clear to auscultation anteriorly. HEART: S1, S2. Regular rate and rhythm. No murmur ABDOMEN: Soft. No tenderness. No guarding or rigidity. EXTREMITIES: Chronic venostasis ulcers. He did have significant dried-out skin and necrotic tissue, foul-smelling. Overall poor hygiene. Neurologically the patient is awake, alert, oriented x3. Mood and affect normal. LABS: Hemoglobin 7, white count 5.9, BUN of 21, creatinine 1.11. Lactic acid 3; repeat is 0.6. DIAGNOSTIC IMPRESSION AND PLAN: Patient admitted to hospital with bilateral lower extremity chronic non-healing ulcers with secondary cellulitis, foul-smelling and overall poor hygiene, with cellulitis from gram- positive skin roly in a patient with a history of MRSA infection. Will need to cover for the MRSA as well; less likely gram-negative infection. PLAN: 1. We did advise whirlpool therapy. Unfortunately this is not available at this facility at this point. 2. RN has been advised to wash his legs with warm water and soft cloth, and afterwards to apply Aquacel Silver on the open wound followed by Kehinde wrap to keep the swelling down. 3. Vancomycin, Pharmacy to dose. Target trough of 15 while watching his kidney function closely. 4. Will follow up on clinical condition and cultures to further adjust medication if needed. Thank you for this consultation. Will follow this patient along with you. MMODL / IJN: [id number] / KAYCE
[2018-04-09] MEDS: PIPERACILLIN-TAZOBACTAM 3.375 GM in DEXTROSE/WATER 1 50ML.BAG IVPB SCH ×3 (00:15→16:11)
[2018-04-09] MEDS: IPRATROPIUM-ALBUTEROL 3 ML NEB INHALATION SCH ×4 (07:36→20:15)
--- NOTE | 2018-04-09 08:45 | XR ---
EXAMINATION TYPE: XR chest 2V DATE OF EXAM: 04/09/2018 COMPARISON: 11/29/2016 TECHNIQUE: PA and lateral views submitted. HISTORY: COPD FINDINGS: The heart is enlarged. Hypertrophic change of the spine noted. A patchy infiltrate at the lung bases with tiny pleural thickening or effusions. No pneumothorax. Atherosclerotic change aorta. Arthropathy shoulders. IMPRESSION: 1. Patchy basilar infiltrate and tiny effusion. Cannot exclude mild central venous congestion superim posed on a background of COPD. Correlate clinically.
[2018-04-09] MEDS: FAMOTIDINE 20 MG TAB PO SCH ×2 (09:16→22:33)
[2018-04-09] MEDS: NICOTINE 14MG/24HR PATCH TRANSDERM SCH (09:16)
[2018-04-09] MEDS: VANCOMYCIN 2,250 MG in SODIUM CHLORIDE 0.9% 500 ML 500 ML IVPB SCH ×2 (09:19→21:30)
--- NOTE | 2018-04-09 09:49 | P.CON ---
Consult Note - . Consult date: 04/09/18 Assessment/Plan:: This is a consult on a 57-year-old white male complaining of discomfort in the distal lower legs and feet for many months relieved by rest and seems to be exacerbated by dependency swelling both lower extremities which has been occurring for the last 5 years. Patient reports spontaneous bleeding from ulcerated areas of skin right greater than left ankle areas which prompted him to come into the emergency room. Local exam: 2-3+ edema nonpitting in both distal lower extremities and feet without evidence of stasis dermatitis stasis ulcerations medial right ankle and left medial left ankle areas. There is marked and dried periungual hemorrhagic material is on all toes right greater than left foot without evidence of perungual abscesses or ingrown nails. Nails are markedly dystrophic and incurvated 1 through 5 both feet with evidence of onychomycosis. There is no active periungual drainage, erythema or tenderness. Patient moves all 4 extremities well. Muscle strength is symmetrical in lower extremity bilaterally. Web spaces are clear both feet. There are no plantar ulcerations or skin lesions. Hallux limitus noted right greater than left first metatarsophalangeal joint. Dorsalis pedis pulses are not easily palpable due to the edema bilaterally with posterior tibial pulses feeble bilat.. No evidence of cyanosis. Both feet are warm to touch. Assessment: Onychomycosis Onychodystrophy Chronic venous insufficiency Plan: Mycotic nails were debrided with reduction of onychodystrophy 1 through 5 bilaterally without incident. No evidence of ingrown nail either foot. Did not feel the hemorrhagic exudate noted around the nails are coming from the nails but do believe that this is is present due to the marked bleeding patient noticed from his skin ulcerations. Patient advised routine foot care as needed and would be happy to see him in follow-up as an outpatient Thank you for involving me in the care of this most interesting patient.
[2018-04-09] MEDS: METOPROLOL SUCCINATE (ER) 25 MG TAB.ER.24H PO SCH (12:34)
--- NOTE | 2018-04-09 13:25 | ECHOF ---
Referral Reason:chf MEASUREMENTS -------- HEIGHT: 185.4 cm WEIGHT: 151.9 kg BP: 144/74 RVIDd: 4.7 cm (< 3.3) IVSd: 1.1 cm (0.6 - 1.1) LVIDd: 4.1 cm (3.9 - 5.3) LVPWd: 1.6 cm (0.6 - 1.1) IVSs: 2.2 cm LVIDs: 1.4 cm LVPWs: 2.9 cm LA Diam: 1.5 cm (2.7 - 3.8) Ao Diam: 3.6 cm (2.0 - 3.7) AV Cusp: 2.0 cm (1.5 - 2.6) LA Diam: 4.9 cm (2.7 - 3.8) MV EXCURSION: 11.714 mm (> 18.000) MV EF SLOPE: 47 mm/s (70 - 150) EPSS: 0.9 cm RAP: 5.00 mmHg RVSP: 29.40 mmHg FINDINGS -------- Atrial fibrillation. This was a technically difficult study with suboptimal views. The left ventricular size is normal. There is moderate concentric left ventricular hypertrophy. O verall left ventricular systolic function is mildly impaired with, an EF between 45 - 50 %. The right ventricle is severely enlarged. The right ventricular systolic function is mildly impaire d. The left atrium is moderately dilated. RA appears enlarged. Lumason used The aortic valve is trileaflet, and appears structurally normal. No aortic stenosis or regurgitation. The mitral valve is normal. Mild mitral regurgitation is present. Mild tricuspid regurgitation present. There is no evidence of pulmonary hypertension. The right v entricular systolic pressure, as measured by Doppler, is 29.40mmHg. The pulmonic valve was not well visualized. There is no pulmonic regurgitation present. The aortic root, ascending aorta and aortic arch are normal. There is no pericardial effusion. CONCLUSIONS -------- 1. Atrial fibrillation. 2. This was a technically difficult study with suboptimal views. 3. The left ventricular size is normal. 4. There is moderate concentric left ventricular hypertrophy. 5. Overall left ventricular systolic function is mildly impaired with, an EF between 45 - 50 %. 6. The right ventricle is severely enlarged. 7. The right ventricular systolic function is mildly impaired. 8. The left atrium is moderately dilated. 9. RA appears enlarged. 10. Lumason used 11. The aortic valve is trileaflet, and appears structurally normal. No aortic stenosis or regurgitat ion. 12. Mild mitral regurgitation is present. 13. Mild tricuspid regurgitation present. 14. There is no evidence of pulmonary hypertension. 15. The pulmonic valve was not well visualized. 16. There is no pulmonic regurgitation present. 17. The aortic root, ascending aorta and aortic arch are normal. 18. There is no pericardial effusion. DROP WIRE OPERATOR: Laurie Doyle RDCS
--- NOTE | 2018-04-09 15:49 | PN ---
PROGRESS NOTE DATE OF SERVICE: 03/10/2018. REASON FOR FOLLOWUP: Bilateral leg wound and cellulitis. INTERVAL COURSE: The patient is currently afebrile. He is breathing comfortably. Pain to the leg area has slightly decreased intensity. Denies having any chest pain, shortness of breath or cough. No abdominal pain or diarrhea. EXAMINATION: Blood pressure 122/73 with a pulse of 90, temperature 98. He is 100% on room air. General description is a middle-aged male lying in bed in no distress. Respiratory system: Unlabored breathing, clear to auscultation anteriorly. Heart S1, S2. Regular rate and rhythm. Abdomen is soft, no tenderness. Legs are currently dressed up. No significant drainage on the dressing. LABS: Hemoglobin is 7, white count 5.9. No new lab have been done today. Wound cultures currently pending. DIAGNOSTIC IMPRESSION AND PLAN: Patient with bilateral lower extremity cellulitis and wound, now with evidence of a gram-positive bacteremia. Blood culture with gram-positive cocci. The patient at this time is covered with vancomycin that will continue. Blood cultures will be repeated to document clearance of his bacteremia. Continue with vanco and Zosyn in addition to local wound care with Aquacel Silver shabnam wrap. Continue supportive care. MMODL / IJN: [id number] /
--- NOTE | 2018-04-09 16:55 | CONS ---
DATE OF CONSULTATION: 04/09/2018 This is a 57-year-old gentleman who came to the emergency room with bleeding varicose vein, right ankle. This patient has a history of bilateral venostasis ulcers and varicosities for the last 5 years. He has not seen any physician for this issue. Patient also has a history of CHF and patient is for cardiac workup. No history of diabetes. Positive hypertension. PHYSICAL EXAMINATION: Patient was seen in his room. NECK: Supple. Trachea central. CHEST: A few crackles at the lung bases. ABDOMEN: Soft. Femorals are palpable. Patient has a large varicosity involving the anterior aspect of the thigh and venostasis ulcer, left lower extremity, anterior aspect. The patient has also varicosity and venules. Also patient has some reticular veins at the ankle area with brown induration. PLAN: At this point patient is not bleeding. We will use the compression wrap and when patient is discharged we will follow in the wound clinic on Friday. Patient will need a venous workup as an outpatient. At this point patient is stable, not bleeding. We need to compress the veins by using compression dressing on the right lower extremity and we will use Aquacel Silver for the venostasis ulcer, left lower extremity. MMODL / IJN: [id number] / MTDFlip
[2018-04-09 17:04] LABS: Glucose,Whole Blood 128 mg/dL (75-99)
--- NOTE | 2018-04-09 22:01 | PN ---
PROGRESS NOTE DATE OF SERVICE: 04/09/2018 PRESENTING COMPLAINT: Lower extremity venous ulcers and bleeding varicose veins. INTERVAL HISTORY: This patient was admitted with bilateral lower extremity cellulitis, bleeding varicose veins and venous ulcers. Patient had stopped taking his medications for a couple of years. Blood cultures did come back positive. REVIEW OF SYSTEMS: Done for constitutional, cardiovascular, GI, pulmonary; relevant findings as above. CURRENT MEDICATIONS: Reviewed. They include IV Zosyn and vancomycin. PHYSICAL EXAMINATION: Temperature 97.2, pulse 95, respiration 18, blood pressure 144/74, pulse ox 97% on room air. GENERAL APPEARANCE: Lying in bed, awake. EYES: Pupils equal. Conjunctivae normal. NECK: JVD not raised. Mass not palpable. RESPIRATORY: Effort normal. LUNGS: Decreased breath sounds. CARDIOVASCULAR: Heart sounds irregular. Some edema. ABDOMEN: Distended, soft. Liver and spleen not palpable. DERMATOLOGICAL: Prominent veins in both lower extremities. Left leg in a dressing. INVESTIGATIONS: Lactic acid is 0.6. ASSESSMENT: 1. Severe bleeding from prominent varicose veins leading to acute severe blood loss anemia resulting in patient having syncope on admission. 2. Large venous ulcer on the left lower extremity with secondary infection. 3. Chronic congestive heart failure from systolic dysfunction, ejection fraction 40%. 4. Hypertensive heart disease. 5. Secondary pulmonary hypertension. 6. Chronic obstructive pulmonary disease in a current smoker. 7. Persistent atrial fibrillation with rapid ventricular rate on presentation. 8. Gastroesophageal reflux disease. 9. Primary osteoarthritis. 10.Morbid obesity with body mass index of 41.9. 11.Positive blood cultures with gram-positive cocci. 12.Severe onychomycosis, for which toenails were clipped by Podiatry. PLAN: Continue patient on current antibiotics. Discussed with Dr. Devine. Patient needs to follow up with him in the wound care center on Friday. Current antibiotics are to continue. Bronchodilators to continue. Follow with ID. Because of high risk of bleeding, patient is not felt to be a candidate for anticoagulation. Patient also has dystrophic nails. They were clipped by Podiatry. MMODL / IJN: [id number] /
[2018-04-09] MEDS: HYDROcodone/APAP 5-325MG 1 EACH TAB PO PRN (23:18)
[2018-04-10] MEDS: PIPERACILLIN-TAZOBACTAM 3.375 GM in DEXTROSE/WATER 1 50ML.BAG IVPB SCH ×2 (00:30→10:02)
[2018-04-10] MEDS: SODIUM CHLORIDE 0.9% 1,000 ML IV SCH ×2 (05:51→14:53)
[2018-04-10 06:52] LABS: Calcium 8.2 mg/dL (8.4-10.2); Potassium 4.3 mmol/L (3.5-5.1)
[2018-04-10] MEDS: IPRATROPIUM-ALBUTEROL 3 ML NEB INHALATION SCH ×4 (08:00→20:39)
[2018-04-10 08:34] LABS: Anisocytosis Slight; HCT 23.6 % (39.0-53.0); Hypochromasia Marked; MCH 24.9 pg (25.0-35.0); MCHC 29.6 g/dL (31.0-37.0); MCV 83.9 fL (80.0-100.0); Mean Platelet Volume 7.6; Platelet Count 336 k/uL (150-450); Poikilocytosis Slight; RBC 2.81 m/uL (4.30-5.90); WBC 5.2 k/uL (3.8-10.6)
[2018-04-10] MEDS: VANCOMYCIN 2,250 MG in SODIUM CHLORIDE 0.9% 500 ML 500 ML IVPB SCH ×2 (10:02→21:53)
[2018-04-10] MEDS: FAMOTIDINE 20 MG TAB PO SCH ×2 (10:03→20:27)
[2018-04-10] MEDS: NICOTINE 14MG/24HR PATCH TRANSDERM SCH ×2 (10:03→10:06)
[2018-04-10] MEDS: METOPROLOL SUCCINATE (ER) 25 MG TAB.ER.24H PO SCH (10:03)
--- NOTE | 2018-04-10 13:55 | P.PN ---
Subjective Progress Note Date: 04/10/18 This is a 56-year-old gentleman with history of COPD, paroxysmal atrial fibrillation, hypertension, chronic bilateral leg swelling, varicose veins. presented to the hospital with bilateral leg swelling, large ulcer over the left foot, severe bleeding from his varicose veins, feeling tired and run down. Patient was previously on anticoagulation for A. fib but was stopped due to history of GI bleed. Patient has not been taking any medications and does not follow with physicians on a regular basis. We were consulted to see the patient due to cardiac history including prior history of diastolic congestive heart failure. Echocardiogram shows LV EF 45-50% with severely enlarged RV. Objective - Vital Signs Vital signs: Vital Signs Temp 96.8 F L 04/10/18 10:00 Pulse 111 H 04/10/18 12:00 Resp 20 04/10/18 12:00 BP 124/82 04/10/18 12:00 Pulse Ox 99 04/10/18 12:00 Intake & Output 04/09/18 04/10/18 04/10/18 18:59 06:59 18:59 Intake Total 960 240 Output Total 1600 Balance 960 -1600 240 Weight 152.5 kg Intake: Oral 960 240 Output: Urine 1600 Other: Voiding Method Urinal Urinal Urinal # Voids 3 1 - Exam PHYSICAL EXAMINATION: HEENT: Head is atraumatic, normocephalic. Pupils equal, round. Neck is supple. There is no elevated jugular venous pressure. HEART EXAMINATION: Heart sounds irregularly irregular, S1 and S2 normal. No murmur or gallop heard. CHEST EXAMINATION: Lungs are clear to auscultation and precussion. No chest wall tenderness is noted on palpation or with deep breathing. ABDOMEN: Soft, obese, nontender. Bowel sounds are heard. No organomegaly noted. EXTREMITIES: Diminished peripheral pulses with evidence of bilateral lower extremity pitting edema peripheral edema and no calf tenderness noted. NEUROLOGIC patient is awake, alert and oriented x3. . - Labs CBC & Chem 7: 04/10/18 06:08 04/10/18 06:08 Labs: Abnormal Lab Results - Last 24 Hours (Table) 04/09/18 04/10/18 04/10/18 Range/Units 16:51 06:08 06:08 RBC 2.81 L (4.30-5.90) m/uL Hgb 7.0 L (13.0-17.5) gm/dL Hct 23.6 L (39.0-53.0) % MCH 24.9 L (25.0-35.0) pg MCHC 29.6 L (31.0-37.0) g/dL RDW 18.0 H (11.5-15.5) % POC Glucose (mg/dL) 128 H (75-99) mg/dL Calcium 8.2 L (8.4-10.2) mg/dL Microbiology - Last 24 Hours (Table) 04/08/18 10:36 Blood Culture Gram Stain - Preliminary Blood Blood Culture - Preliminary Presumptive Staph aureus 04/08/18 10:59 Gram Stain - Final Leg - Left Wound Culture - Final 04/08/18 10:36 Blood Culture - Final Blood Assessment and Plan Assessment: #1 persistent atrial fibrillation, not on anticoagulation due to previous GI bleed #2 history of diastolic congestive heart failure #3 varicose veins with venous stasis ulcers #4 evidence of severe RV enlargement on echo, similar to previous echo from 2017 Plan: From cardiology's perspective, no anticoagulation at this time due to prior history of GI bleed, anemia, profuse bleeding from varicose veins and noncompliance with medical follow-up. Continue current medications. Further recommendations to follow. The above dictated assessment and findings were discussed with signing physician. The impression and plan of care have been directed as dictated. Cathy Gil, Nurse Practitioner, acting as scribe for signing physician.
[2018-04-10] MEDS: HYDROcodone/APAP 5-325MG 1 EACH TAB PO PRN ×2 (14:25→20:27)
--- NOTE | 2018-04-10 14:41 | PN ---
PROGRESS NOTE DATE OF SERVICE: 04/10/2018. REASON FOR FOLLOWUP: 1. Left leg wound with cellulitis. 2. Staph aureus bacteremia. INTERVAL HISTORY: The patient is currently afebrile. He is breathing comfortably. Still complaining of pain to the leg especially when he walks on it. Denies having any chest pain, shortness of breath, cough, abdominal pain, or any diarrhea. EXAMINATION: Blood pressure 145/94 with a pulse of 94. Temperature 96.8. He is 99% on room air. General description is a middle aged male up in the bed in no distress. Respiratory system unlabored breathing. Clear to auscultation anteriorly. Heart S1, S2. Regular rate and rhythm. Abdomen soft. No tenderness. Left leg is currently dressed up. No obvious drainage on the dressing. LABS: Hemoglobin 7, white count 5.2, BUN of 20, creatinine 1.24. Blood culture presumptive Staph aureus. DIAGNOSTIC IMPRESSION AND PLAN: Patient with a left leg venous stasis ulcer with secondary cellulitis culture now with a blood culture positive for Staph aureus. We will keep the patient on vancomycin, pharmacy to dose, target trough of 15 while watching his kidney function closely. Discontinue the Zosyn as no gram negative has been grown. Continue local wound care with Aquacel Silver dressing and Kehinde wrap. Continue supportive care. MMODL / IJN: [id number] / MTDD
[2018-04-10] MEDS ORDERED: VANCOMYCIN TROUGH DUE 1 EACH MISC MISCELLANE ONE (20:00)
--- NOTE | 2018-04-10 21:23 | PN ---
PROGRESS NOTE DATE OF SERVICE: 04/10/18. PRESENTING COMPLAINT: Tired. INTERVAL HISTORY: This is a patient admitted with bilateral lower extremity cellulitis, bleeding, varicose veins, and left leg venous ulcers infected. The patient has stopped taking his medications, a couple of beers, also blood cultures are positive. The patient feels tired and run down. Did tolerate a diet. Had a bowel movement. Some shortness of breath is present. Did walk to the bathroom. He is getting local treatment of the left leg venous ulcers. REVIEW OF SYSTEMS: Done for constitutional, cardiovascular, GI, pulmonary; relevant findings as above. CURRENT MEDICATIONS: Reviewed that include IV vancomycin. Zosyn was discontinued. EXAMINATION: Temp 97, pulse 88, respiration 16, blood pressure 130/73, pulse 100 percent on room air. GENERAL APPEARANCE: Lying in bed, awake. EYES: Pupils equal. Conjunctivae normal.. HEENT: External appearance of nose and ears normal. Oral cavity normal. NECK: JVD not raised. Mass not palpable. RESPIRATORY: Effort normal. Lungs, decreased breath sounds. CARDIOVASCULAR: Heart sounds irregular. Some edema. ABDOMEN: Soft, nontender. Liver and spleen not palpable. PSYCHIATRY: Alert and oriented x3. Mood is normal. DERMATOLOGICAL: Prominent varicose veins in both lower extremities. Left leg in a dressing. INVESTIGATIONS: White count 5.2, hemoglobin 7, potassium 4.3, BUN and creatinine are normal. The patient's blood cultures growing a presumptive Staph aureus. ASSESSMENT: 1. Severe bleeding from prominent varicose veins leading to acute severe blood loss anemia resulting in patient having syncope on admission. 2. Large venous ulcer on the left lower extremity with secondary infection. 3. Positive blood cultures growing Staph aureus likely source of his venous ulcer on extremity. 4. Chronic congestive heart failure from systolic dysfunction, ejection fraction 40%, likely from hypertensive heart disease. 5. Hypertensive heart disease. 6. Secondary pulmonary hypertension. 7. Chronic obstructive pulmonary disease in a current smoker. 8. Persistent atrial fibrillation with rapid ventricular rate on presentation now controlled. 9. Gastroesophageal reflux disease. 10.Primary osteoarthritis. 11.Morbid obesity, BMI of 41.9. 12.Severe onychomycosis for which nails were clipped by Podiatry. PLAN: Continue with antibiotics per Infectious Disease. Local wound care to continue. Patient is not a candidate for anticoagulation because of bleeding. Looking at possibly going to the ECF. MMODL / IJN: [id number] /
[2018-04-11] MEDS: HYDROcodone/APAP 5-325MG 1 EACH TAB PO PRN ×3 (04:31→21:47)
[2018-04-11] MEDS: IPRATROPIUM-ALBUTEROL 3 ML NEB INHALATION SCH ×4 (08:49→20:34)
[2018-04-11] MEDS: NICOTINE 14MG/24HR PATCH TRANSDERM SCH ×2 (09:13→09:23)
[2018-04-11] MEDS: FAMOTIDINE 20 MG TAB PO SCH ×2 (09:13→21:39)
[2018-04-11] MEDS: METOPROLOL SUCCINATE (ER) 25 MG TAB.ER.24H PO SCH (09:13)
--- NOTE | 2018-04-11 12:17 | P.PN ---
Subjective Progress Note Date: 04/11/18 This is a 56-year-old gentleman with history of COPD, paroxysmal atrial fibrillation, hypertension, chronic bilateral leg swelling, varicose veins. presented to the hospital with bilateral leg swelling, large ulcer over the left foot, severe bleeding from his varicose veins, feeling tired and run down. Patient was previously on anticoagulation for A. fib but was stopped due to history of GI bleed. Patient has not been taking any medications and does not follow with physicians on a regular basis. We were consulted to see the patient due to cardiac history including prior history of diastolic congestive heart failure. Echocardiogram shows LV EF 45-50% with severely enlarged RV. 04/11/2018 Patient was seen and examined this morning, patient was seen and examined this morning, complaints of feeling extremely tired. Blood cultures positive for presumptive staph aureus. Blood pressure 140/80 with a heart rate in the 80s 100% on room air. Blood cell count 5.2, hemoglobin 7.0, platelet count 336. Objective - Vital Signs Vital signs: Vital Signs Temp 98 F 04/10/18 23:04 Pulse 99 04/11/18 04:00 Resp 22 04/11/18 04:00 BP 147/80 04/11/18 04:00 Pulse Ox 100 04/11/18 04:00 Intake & Output 04/10/18 04/11/18 04/11/18 18:59 06:59 18:59 Intake Total 480 620 Output Total 1800 Balance 480 -1180 Weight 151.3 kg Intake: IV 120 Vancomycin 2,250 mg In 120 Sodium Chloride 0.9% 500 ml @ 167 mls/hr IVPB Q12HR [facility] Rx#:[id number] Intake, IV Titration 500 Amount Vancomycin 2,250 mg In 500 Sodium Chloride 0.9% 500 ml @ 167 mls/hr IVPB Q12HR [facility] Rx#:[id number] Oral 480 Output: Urine 1800 Other: Voiding Method Urinal Urinal # Voids 2 # Bowel Movements 1 - Exam PHYSICAL EXAMINATION: HEENT: Head is atraumatic, normocephalic. Pupils equal, round. Neck is supple. There is no elevated jugular venous pressure. HEART EXAMINATION: Heart sounds irregularly irregular, S1 and S2 normal. No murmur or gallop heard. CHEST EXAMINATION: Lungs are clear to auscultation and precussion. No chest wall tenderness is noted on palpation or with deep breathing. ABDOMEN: Soft, obese, nontender. Bowel sounds are heard. No organomegaly noted. EXTREMITIES: Diminished peripheral pulses with evidence of bilateral lower extremity pitting edema peripheral edema , ulcerations and no calf tenderness noted. NEUROLOGIC patient is awake, alert and oriented x3. - Labs CBC & Chem 7: 04/10/18 06:08 04/10/18 06:08 Labs: Microbiology - Last 24 Hours (Table) 04/09/18 16:29 Blood Culture - Preliminary Blood No Growth after 24 hours 04/08/18 10:36 Blood Culture Gram Stain - Preliminary Blood Blood Culture - Preliminary Presumptive Staph aureus 04/08/18 10:59 Gram Stain - Final Leg - Left Wound Culture - Final Assessment and Plan Plan: Assessment and plan #1 persistent atrial fibrillation, not on anticoagulation due to previous GI bleed #2 diastolic congestive heart failure, acute on chronic #3 varicose veins with venous stasis ulcers #4 evidence of severe RV enlargement on echo, similar to previous echo from 2017 Plan From cardiology's perspective, we will continue his current medications, add a small dose of by mouth Lasix to his medication regime. DNP note has been reviewed, I agree with a documented findings and plan of care. Patient was seen and examined.
[2018-04-11] MEDS: FUROSEMIDE 40 MG TAB PO SCH (17:40)
[2018-04-11] MEDS: SODIUM CHLORIDE 0.9% 1,000 ML IV SCH (19:37)
--- NOTE | 2018-04-11 21:06 | PN ---
PROGRESS NOTE DATE OF SERVICE: 04/11/2018. PRESENTING COMPLAINT: Tired. INTERVAL HISTORY: This is a patient who has not been taking his medications for last 2 years, presented with bilateral lower extremity cellulitis, large venous ulcers on the left leg, infected and bleeding varicose veins. The patient is getting antibiotics and local care is continuing. The patient is up and back from the bathroom. REVIEW OF SYSTEMS: Done for constitutional, cardiovascular, GI, pulmonary; relevant findings as above. CURRENT MEDICATIONS: Reviewed that include IV vancomycin. EXAMINATION: VITAL SIGNS: Afebrile, pulse 97, respiratory 18, blood pressure 122/74, pulse ox 100 percent on room air. GENERAL APPEARANCE: Lying in bed awake. EYES: Pupils equal. Conjunctivae normal. HEENT external appearance of nose and ears normal. Oral cavity normal. NECK JVD not raised. Mass not palpable. RESPIRATORY effort normal. LUNGS decreased breath sounds. CARDIOVASCULAR: Heart sounds irregular. Some edema. ABDOMEN: Soft, nontender. Liver and spleen not palpable. PSYCHIATRY: Alert and oriented times three. Mood and affect normal. DERMATOLOGICAL: Lower extremities very prominent varicose veins and large left leg venous ulcers. INVESTIGATIONS: No blood work from today. ASSESSMENT: 1. Severe bleeding from prominent varicose veins leading to acute severe blood loss anemia resulting in patient having syncope on presentation. 2. Large venous ulcer on the left lower extremity with secondary infection. 3. Positive blood cultures growing Staph aureus, likely source being venous ulcer. 4. Chronic congestive heart failure from systolic dysfunction, ejection fraction 40%, likely from hypertensive heart disease. 5. Hypertensive heart disease. 6. Secondary pulmonary hypertension. 7. Chronic obstructive pulmonary disease in a current smoker. 8. Persistent atrial fibrillation with rapid ventricular rate on presentation. Patient not felt to be a candidate for anticoagulation. 9. Gastroesophageal reflux disease. 10.Primary osteoarthritis. 11.Morbid obesity BMI 41.9. 12.Severe onychomycosis for which patient had nails clipped by Podiatry. PLAN: Patient should be able to be switched over to oral antibiotics soon. Social Work is working on discharge planning. MMODL / IJN: [id number] /
[2018-04-11] MEDS ORDERED: VANCOMYCIN 2,250 MG in SODIUM CHLORIDE 0.9% 500 ML 500 ML IVPB SCH (22:00)
[2018-04-12 06:54] LABS: Potassium 4.6 mmol/L (3.5-5.1)
[2018-04-12] MEDS: IPRATROPIUM-ALBUTEROL 3 ML NEB INHALATION SCH ×4 (08:07→19:56)
[2018-04-12] MEDS ORDERED: FUROSEMIDE 40 MG TAB PO SCH (09:00)
[2018-04-12] MEDS: METOPROLOL SUCCINATE (ER) 25 MG TAB.ER.24H PO SCH (09:06)
[2018-04-12] MEDS: NICOTINE 14MG/24HR PATCH TRANSDERM SCH (09:06)
[2018-04-12] MEDS: FUROSEMIDE 40 MG TAB PO SCH (09:06)
[2018-04-12] MEDS: FAMOTIDINE 20 MG TAB PO SCH ×2 (09:06→19:51)
[2018-04-12] MEDS: HYDROcodone/APAP 5-325MG 1 EACH TAB PO PRN (12:13)
--- NOTE | 2018-04-12 15:05 | P.PN ---
Subjective Progress Note Date: 04/12/18 This is a 56-year-old gentleman with history of COPD, paroxysmal atrial fibrillation, hypertension, chronic bilateral leg swelling, varicose veins. presented to the hospital with bilateral leg swelling, large ulcer over the left foot, severe bleeding from his varicose veins, feeling tired and run down. Patient was previously on anticoagulation for A. fib but was stopped due to history of GI bleed. Patient has not been taking any medications and does not follow with physicians on a regular basis. We were consulted to see the patient due to cardiac history including prior history of diastolic congestive heart failure. Echocardiogram shows LV EF 45-50% with severely enlarged RV. 04/11/2018 Patient was seen and examined this morning, patient was seen and examined this morning, complaints of feeling extremely tired. Blood cultures positive for presumptive staph aureus. Blood pressure 140/80 with a heart rate in the 80s 100% on room air. Blood cell count 5.2, hemoglobin 7.0, platelet count 336. The patient continues to diurese. Lungs sounds are diminished, no crackles noted. Has more energy today. He seen sitting up in bed in no acute distress. His legs are wrapped with Kehinde wrapping Curlex. He continues to have moderate lower extremity edema. Denies any chest discomfort, shortness breath or palpitations. Objective - Vital Signs Vital signs: Vital Signs Temp 96.6 F L 04/12/18 12:00 Pulse 84 04/12/18 12:00 Resp 16 04/12/18 12:00 BP 124/68 04/12/18 12:00 Pulse Ox 99 04/12/18 12:00 Intake & Output 04/11/18 04/12/18 04/12/18 18:59 06:59 18:59 Intake Total 480 980 240 Output Total 1200 500 Balance 480 -220 -260 Weight 156.5 kg Intake: IV 500 Vancomycin 2,250 mg In 500 Sodium Chloride 0.9% 500 ml @ 167 mls/hr IVPB Q12HR [facility] Rx#:[id number] Oral 480 480 240 Output: Urine 1200 500 Other: Voiding Method Urinal Urinal Urinal # Voids 1 3 - Exam HEENT: Head is atraumatic, normocephalic. Pupils equal, round. Neck is supple. There is no elevated jugular venous pressure. HEART EXAMINATION: Heart sounds irregularly irregular, S1 and S2 normal. No murmur or gallop heard. CHEST EXAMINATION: Lungs are clear to auscultation and precussion. No chest wall tenderness is noted on palpation or with deep breathing. ABDOMEN: Soft, obese, nontender. Bowel sounds are heard. No organomegaly noted. EXTREMITIES: Diminished peripheral pulses with evidence of bilateral lower extremity pitting edema peripheral edema , ulcerations and no calf tenderness noted. Bilateral lower extremities are wrapped with Kerlix and Kehinde wrap. NEUROLOGIC patient is awake, alert and oriented x3. - Labs CBC & Chem 7: 04/10/18 06:08 04/12/18 06:11 Labs: Abnormal Lab Results - Last 24 Hours (Table) 04/12/18 Range/Units 06:11 BUN 21 H (9-20) mg/dL Microbiology - Last 24 Hours (Table) 04/08/18 10:36 Blood Culture Gram Stain - Final Blood Blood Culture - Final Staphylococcus aureus 04/09/18 16:29 Blood Culture - Preliminary Blood No Growth after 48 hours Assessment and Plan Assessment: #1 persistent atrial fibrillation, not on anticoagulation due to previous GI bleed #2 diastolic congestive heart failure, acute on chronic #3 varicose veins with venous stasis ulcers #4 evidence of severe RV enlargement on echo, similar to previous echo from 2017 Plan: Continue with current medication regimen. No changes have been made. Continue with Toprol and Lasix. Strict I&O and daily weights. We will continue to follow him closely.
[2018-04-12 18:04] LABS: Anisocytosis Slight; Basophils % (A) 0 %; Eosinophils # (A) 0.7 k/uL (0-0.7); Eosinophils % (A) 13 %; HCT 22.8 % (39.0-53.0); HGB 7.3 gm/dL (13.0-17.5); Hypochromasia Marked; Lymphocytes # (A) 1.1 k/uL (1.0-4.8); Lymphocytes % (A) 21 %; MCH 25.8 pg (25.0-35.0); MCHC 31.9 g/dL (31.0-37.0); MCV 80.8 fL (80.0-100.0); Mean Platelet Volume 7.3; Microcytosis Slight; Monocytes # (A) 0.4 k/uL (0-1.0); Monocytes % (A) 7 %; Neutrophils % (A) 56 %; Platelet Count 327 k/uL (150-450); Poikilocytosis Slight; RBC 2.82 m/uL (4.30-5.90); RDW 17.6 % (11.5-15.5); WBC 5.3 k/uL (3.8-10.6)
[2018-04-12] MEDS: ceFAZolin IN SWFI 2 GM/20 ML SYRINGE IVP SCH ×2 (19:02→22:29)
[2018-04-12] MEDS: METOPROLOL TARTRATE 25 MG TAB PO SCH (19:51)
[2018-04-12] MEDS: SODIUM CHLORIDE 0.9% 1,000 ML IV SCH (19:53)
--- NOTE | 2018-04-12 20:13 | PN ---
PROGRESS NOTE DATE OF SERVICE: 04/12/18. PRESENTING COMPLAINT: Tired. INTERVAL HISTORY: The patient has not been taking medications for a couple of years, presented with bilateral lower extremity cellulitis, large venous ulcer on the left leg infected and bleeding varicose veins. It was reported that last night patient tried to walk. He has been up to the bathroom. He started bleeding from both his lower extremities. Otherwise, breathing is stable. Cardiology added Lasix today. REVIEW OF SYSTEMS: Done for constitutional, cardiovascular, GI, pulmonary, dermatological; relevant findings as above. CURRENT MEDICATIONS: Reviewed that include IV Ancef. PHYSICAL EXAMINATION: Temperature 97, pulse 104, respirations 16, blood pressure 122/68, pulse ox 99% on room air. GENERAL APPEARANCE: Lying in bed comfortable. EYES: Blood culture normal. HEENT: External appearance of nose and ears normal. Oral cavity normal. NECK: JVD not raised. Mass not palpable. RESPIRATORY: Effort normal. Lungs, decreased breath sounds. CARDIOVASCULAR: Heart sounds irregular, edema present. ABDOMEN: Soft, nontender. Liver and spleen not palpable. PSYCHIATRY: Alert and oriented x3. Mood and affect normal. DERMATOLOGICAL: Lower extremity very prominent varicose veins bleeding easily, large left leg venous ulcers. INVESTIGATIONS: Hemoglobin 7.3. Wound cultures growing MSSA. ASSESSMENT: 1. Severe bleeding from prominent varicose veins leading to acute severe blood loss anemia resulting in patient having syncope on presentation. 2. Large venous ulcers in the left lower extremity with secondary infection from MSSA. 3. Positive blood cultures from MSSA from venous ulcers. 4. Chronic congestive heart failure from systolic dysfunction, ejection fraction 40%, likely from hypertensive heart disease. 5. Hypertensive heart disease. 6. Secondary pulmonary hypertension. 7. Chronic obstructive pulmonary disease in a current smoker. 8. Persistent atrial fibrillation with rapid ventricular rate on presentation, heart rate now better controlled. Not a candidate for anticoagulation. 9. Gastroesophageal reflux disease. 10.Primary osteoarthritis. 11.Morbid obesity, BMI 41.9. 12.Severe onychomycosis. The patient had his nails clipped by Podiatry. PLAN: Lasix was added today by Cardiology. I spoke to Dr. Devine from Vascular. The patient will need tighter wraps if he needs to go home. The patient should be able to switched over to oral antibiotics when he goes home. MMODL / IJN: [id number] /
--- NOTE | 2018-04-13 01:25 | PN ---
PROGRESS NOTE DATE OF SERVICE: 04/12/2018. REASON FOR FOLLOWUP: Bilateral leg wounds and cellulitis and MSSA bacteremia. INTERVAL HISTORY: The patient is currently afebrile. He has been breathing more comfortably. Denies significant chest pain. Occasional cough. Still have pain on the leg, especially when he walks on it. No abdominal pain. No diarrhea. EXAMINATION: Blood pressure 148/46, pulse of 82, temperature 97.2, he is 99% on room air. GENERAL DESCRIPTION: A middle-aged male lying in bed in no distress. RESPIRATORY SYSTEM: Unlabored breathing. Clear to auscultation anteriorly. HEART: S1, S2. Regular rate and rhythm. ABDOMEN: No drainage of the dressing. LABS: Hemoglobin 7.8, white count 5.3, BUN of 21, creatinine 1.24. DIAGNOSTIC IMPRESSION AND PLAN: Patient with MSSA bacteremia. The patient was admitted to the hospital with bilateral lower extremity ulcers and cellulitis. Plan at this time is to discontinue vancomycin and start the patient on cefepime every 8 hours. Local wound care to continue with Aquacel Silver dressing. Will reevaluate the wound tomorrow. Continue supportive care. MMODL / IJN: [id number] / MTDD
[2018-04-13] MEDS: IPRATROPIUM-ALBUTEROL 3 ML NEB INHALATION SCH ×4 (07:47→19:49)
[2018-04-13] MEDS: FAMOTIDINE 20 MG TAB PO SCH ×2 (08:54→20:04)
[2018-04-13] MEDS: NICOTINE 14MG/24HR PATCH TRANSDERM SCH (08:55)
[2018-04-13] MEDS: METOPROLOL TARTRATE 25 MG TAB PO SCH ×2 (08:55→20:04)
[2018-04-13] MEDS: FUROSEMIDE 40 MG TAB PO SCH (08:55)
[2018-04-13] MEDS: ceFAZolin IN SWFI 2 GM/20 ML SYRINGE IVP SCH ×3 (09:00→23:18)
[2018-04-13] MEDS: HYDROcodone/APAP 5-325MG 1 EACH TAB PO PRN ×2 (13:03→20:05)
--- NOTE | 2018-04-13 13:50 | PN ---
PROGRESS NOTE Mr. Corral has history of venous stasis ulcer, both lower extremity. The patient has a open ulcer anterior aspect of the left lower extremity with varicosity and broad induration both lower extremity. The patient had no venous workup in the past. The patient came with bleeding varices from the right ankle. The patient has multiple superficial ulcers noted at the right ankle with venous stasis and also there is some reticular vein and at the medial aspect of the right ankle and ulcer on the left lower extremity with base of the wound is granulating. Plan is today we have placed a the compression dressing to the both lower extremity with Medihoney gel to the left ulcer. The patient is going home today and we will follow in my office. Patient need a venous workup and further recommendation will be made after reviewing the venous ultrasound. Thank you for this consultation. MMODL / IJN: [id number] /
--- NOTE | 2018-04-13 14:41 | P.PN ---
Subjective Progress Note Date: 04/13/18 This is a 56-year-old gentleman with history of COPD, paroxysmal atrial fibrillation, hypertension, chronic bilateral leg swelling, varicose veins. presented to the hospital with bilateral leg swelling, large ulcer over the left foot, severe bleeding from his varicose veins, feeling tired and run down. Patient was previously on anticoagulation for A. fib but was stopped due to history of GI bleed. Patient has not been taking any medications and does not follow with physicians on a regular basis. We were consulted to see the patient due to cardiac history including prior history of diastolic congestive heart failure. Echocardiogram shows LV EF 45-50% with severely enlarged RV. 04/11/2018 Patient was seen and examined this morning, patient was seen and examined this morning, complaints of feeling extremely tired. Blood cultures positive for presumptive staph aureus. Blood pressure 140/80 with a heart rate in the 80s 100% on room air. Blood cell count 5.2, hemoglobin 7.0, platelet count 336. 04/13/2018 Patient was seen and examined this morning, hemodynamically he is stable. Currently on by mouth Lasix. Continues to be in atrial fibrillation with a controlled ventricular response. Objective - Vital Signs Vital signs: Vital Signs Temp 97 F L 04/13/18 00:00 Pulse 80 04/13/18 03:23 Resp 18 04/13/18 03:23 BP 123/72 04/13/18 03:23 Pulse Ox 100 04/13/18 03:23 Intake & Output 04/12/18 04/13/18 04/13/18 18:59 06:59 18:59 Intake Total 720 425 480 Output Total 1100 1600 1000 Balance -380 -1175 -520 Weight 153.3 kg Intake: Oral 720 425 480 Output: Urine 1100 1600 1000 Other: Voiding Method Urinal Urinal # Voids 2 - Exam PHYSICAL EXAMINATION: HEENT: Head is atraumatic, normocephalic. Pupils equal, round. Neck is supple. There is no elevated jugular venous pressure. HEART EXAMINATION: Heart sounds irregularly irregular, S1 and S2 normal. No murmur or gallop heard. CHEST EXAMINATION: Lungs are clear to auscultation and precussion. No chest wall tenderness is noted on palpation or with deep breathing. ABDOMEN: Soft, obese, nontender. Bowel sounds are heard. No organomegaly noted. EXTREMITIES: Diminished peripheral pulses with evidence of bilateral lower extremity pitting edema peripheral edema , ulcerations and no calf tenderness noted. NEUROLOGIC patient is awake, alert and oriented x3. - Labs CBC & Chem 7: 04/12/18 17:50 04/12/18 06:11 Labs: Abnormal Lab Results - Last 24 Hours (Table) 04/12/18 Range/Units 17:50 RBC 2.82 L (4.30-5.90) m/uL Hgb 7.3 L (13.0-17.5) gm/dL Hct 22.8 L (39.0-53.0) % RDW 17.6 H (11.5-15.5) % Microbiology - Last 24 Hours (Table) 04/08/18 10:36 Blood Culture Gram Stain - Final Blood Blood Culture - Final Staphylococcus aureus 04/09/18 16:29 Blood Culture - Preliminary Blood No Growth after 72 hours Assessment and Plan Plan: Assessment and plan #1 persistent atrial fibrillation, not on anticoagulation due to previous GI bleed #2 diastolic congestive heart failure, acute on chronic #3 varicose veins with venous stasis ulcers #4 evidence of severe RV enlargement on echo, similar to previous echo from 2017 Plan From cardiology's perspective, we will continue his current medications, he may be able to be discharged to ECF or home once cleared by primary. From our perspective he may also go to MedSurg unit. We will follow him along with you now on an as-needed basis only. Please don't hesitate to call with any questions. DNP note has been reviewed, I agree with a documented findings and plan of care. Patient was seen and examined.
[2018-04-13 17:21] LABS: Glucose,Whole Blood 100 mg/dL (75-99)
--- NOTE | 2018-04-13 17:26 | PN ---
PROGRESS NOTE DATE OF SERVICE: 04/13/2018. PRESENTING COMPLAINT: Tired. INTERVAL HISTORY: This patient not taking medications for a couple of years, presented with bilateral lower extremity cellulitis, large venous ulcers on the left leg, infected and bleeding varicose veins. Also patient has got blood culture positive for MSSA. Today, Dr. Devine put on compression dressing, so he does not bleed any further. Otherwise patient is stable. REVIEW OF SYSTEMS: Done for constitutional, cardiovascular, GI, pulmonary; relevant findings as above. CURRENT MEDICATIONS: Reviewed that include IV Ancef. PHYSICAL EXAMINATION: VITAL SIGNS: Temperature 98.7, pulse 79, respiratory 18, blood pressure 120/75. Pulse ox 100 percent on room air. GENERAL APPEARANCE: Lying in bed, comfortable. EYES: Pupils equal. Conjunctivae normal. HEENT: External appearance of nose and ears normal. Oral cavity normal. NECK: JVD not raised. Mass not palpable. RESPIRATORY: Effort normal. LUNGS: Decreased breath sounds. CARDIOVASCULAR: Heart sounds irregular. Some edema present. ABDOMEN: Soft, nontender. Liver and spleen not palpable. PSYCHIATRY: Alert and oriented x3. Mood and affect normal. DERMATOLOGICAL: Lower extremity has got compression dressing today. INVESTIGATIONS: White count 5.3, hemoglobin 7.3 from yesterday. The patient's blood cultures from 04/08/2018 did grow MSSA and blood cultures from April 09, 2018 were negative. ASSESSMENT: 1. Severe bleeding from prominent varicose veins leading to acute severe blood loss anemia resulting in patient having syncope on presentation. 2. Large venous ulcer of the left lower extremity with secondary infection from MSSA. 3. Positive blood cultures from MSSA from venous ulcer. 4. Chronic congestive heart failure from systolic dysfunction, ejection fraction 40% from hypertensive heart disease. 5. Hypertensive heart disease. 6. Secondary pulmonary hypertension. 7. Chronic obstructive pulmonary disease in a current smoker. 8. Persistent atrial fibrillation with rapid ventricular rate on presentation, heart rate not controlled, not a candidate for anticoagulation. 9. Gastroesophageal reflux disease. 10.Primary osteoarthritis. 11.Morbid obesity BMI 41.9. 12.Severe onychomycosis. Patient has nails clipped by Podiatry. PLAN: Spoke to Dr. Potter from Infectious Disease. The patient is to get IV access for home antibiotics. The patient has got compression dressing from Dr. Devine today. Care was discussed with the patient. MMODL / IJN: [id number] /
--- NOTE | 2018-04-13 23:53 | PN ---
PROGRESS NOTE DATE OF SERVICE: 04/13/2018 REASON FOR FOLLOWUP: 1. Left leg venostasis ulcer and secondary cellulitis. 2. MSSA bacteremia. INTERVAL HISTORY: The patient is currently afebrile. He is breathing comfortably. Left leg pain and swelling has slightly decreased. Denies having any chest pain, shortness of breath or cough. No abdominal pain or any diarrhea. PHYSICAL EXAMINATION: Blood pressure 121/68 with a pulse of 80, temperature 97. He is 97% on room air. General description is a middle-aged male lying in bed in no distress. RESPIRATORY SYSTEM: Unlabored breathing. Clear to auscultation anteriorly. HEART: S1, S2. Regular rate and rhythm. ABDOMEN: Soft. No tenderness. Left leg wounds currently do have some slough tissue, but surrounding swelling and redness has improved. No drainage. LABS: Hemoglobin 7.3, white count of 5.3 with a BUN of 21. DIAGNOSTIC IMPRESSION AND PLAN: Patient with a left leg wound with secondary cellulitis in a patient who did have evidence of methicillin-susceptible Staphylococcus aeruginosa bacteremia. All the blood cultures so far have been negative. In view of his bacteremia, the patient will need a mid line for outpatient IV antibiotic therapy in the form of cefazolin 2 grams q.8 for at least another 12 days. [facility] of the slough tissue present. Continue with supportive care. MMODL / IJN: [id number] /
[2018-04-14 04:28] VITALS: RESP 18
[2018-04-14] MEDS: IPRATROPIUM-ALBUTEROL 3 ML NEB INHALATION SCH ×3 (08:15→16:31)
[2018-04-14] MEDS: NICOTINE 14MG/24HR PATCH TRANSDERM SCH (08:46)
[2018-04-14] MEDS: FUROSEMIDE 40 MG TAB PO SCH (08:48)
[2018-04-14] MEDS: FAMOTIDINE 20 MG TAB PO SCH (08:48)
[2018-04-14] MEDS: HYDROcodone/APAP 5-325MG 1 EACH TAB PO PRN (08:49)
[2018-04-14] MEDS: ceFAZolin IN SWFI 2 GM/20 ML SYRINGE IVP SCH ×2 (08:49→16:10)
[2018-04-14] MEDS: METOPROLOL TARTRATE 25 MG TAB PO SCH (08:49)
[2018-04-14 15:51] VITALS: BP 111/68; PULSE 84; TEMP 97.1
[2018-04-14] MEDS ORDERED: SODIUM CHLORIDE 0.9% IVPB SCH (16:15)
[2018-04-14] MEDS ORDERED: DAPTOMYCIN IVPB SCH (16:15)
--- NOTE | 2018-04-14 17:12 | PN ---
PROGRESS NOTE DATE OF SERVICE: 04/14/2018. REASON FOR FOLLOWUP: 1. Left leg wound with secondary cellulitis. 2. MSSA bacteremia. INTERVAL HISTORY: The patient is currently afebrile. He is breathing comfortably. Denies having any chest pain, shortness of breath or cough. No abdominal pain or worsening pain in the left leg area. PHYSICAL EXAMINATION: Blood pressure is 111/68 with a pulse of 84, temperature 97.1. He is 99% on room air. General description is a middle-aged male lying in bed in no distress. RESPIRATORY SYSTEM: Unlabored breathing. Clear to auscultation anteriorly. HEART: S1, S2. Regular rate and rhythm. ABDOMEN: Soft. No tenderness. Right leg is currently dressed up. No obvious drainage on the dressing. LABS: Follow-up blood culture 04/09 has been negative. DIAGNOSTIC IMPRESSION AND PLAN: Patient with left leg wound with secondary cellulitis, methicillin-susceptible Staphylococcus aeruginosa bacteremia. Follow-up blood culture has been negative. Local wound care to continue with [facility]. The patient is supposed to go home and does not have any insurance, unable to come to the infusion center 3 times a day hence antibiotic will be switched to daptomycin 6 mg/kg for 10 more days. Dose will begin today before discharge. Continue with supportive care. MMODL / IJN: [id number] / KAYCE
--- NOTE | 2018-04-15 09:37 | DS ---
DISCHARGE SUMMARY DATE OF ADMISSION: 04/08/2018 DATE OF DISCHARGE: 04/14/2018 FINAL DIAGNOSES: 1. Severe bleeding from prominent varicose veins leading to acute severe blood loss anemia resulting in patient having syncope on presentation. 2. Large venous ulcers on the left lower extremity with secondary infection with MSSA. 3. Positive blood cultures from MSSA from venous ulcer. 4. Chronic congestive heart failure with systolic dysfunction, ejection fraction 40% from hypertensive heart disease. 5. Hypertensive heart disease. 6. Secondary pulmonary hypertension. 7. Chronic obstructive pulmonary disease in a current smoker. 8. Persistent atrial fibrillation rapid ventricular rate on presentation, now controlled. Not a candidate for anticoagulation because of bleeding from the varicose veins. 9. Gastroesophageal reflux disease. 10.Primary osteoarthritis. 11.Morbid obesity, body mass index 41.9. 12.Severe onychomycosis. The patient has nails clipped by Podiatry. CONSULTATION: Dr. Potter from Infectious Disease; Dr. Denise Kingsley from Cardiology; Dr. Devine from Vascular Surgery; Dr. Lugo from Podiatry. HOSPITAL COURSE: This pleasant 57-year-old gentleman of Dr. Varner who had not followed up for any of his care presented from bleeding from varicose veins in his feet rather profusely. Patient also had a large venous ulcer on the left leg. The patient's culture did show positive for MSSA, especially in the blood. The patient had compression dressing put on to stop the bleeding. Wound care was done by Dr. Potter and Dr. Devine. The patient will follow up with Dr. Devine's office for the same. Repeat blood cultures were negative from 04/09/2018. The patient did have a 2-D echocardiogram, EF of 45% to 50%. The patient has been in atrial fibrillation. Today care was discussed with the patient. Questions were answered. Both clinical social work aide and director case were involved. The patient will be coming to the hospital to get his IV antibiotics. PHYSICAL EXAMINATION: On examination, temperature 97.1, pulse 84, blood pressure 116/68, pulse ox 99% on room air. LUNGS: Fair entry. HEART: Sounds irregular. Dressing on the lower extremity. LABS: White count 5.3, hemoglobin 7.3, BUN 21, creatinine 1.24. DISCHARGE MEDICATIONS: 1. Tylenol 1000 mg p.o. daily. 2. Ventolin HFA 1 to 2 puffs q.6 p.r.n.. 3. Daptomycin 1000 mg daily for 10 days. 4. Lasix 40 mg p.o. daily. 5. Lopressor 25 mg b.i.d. 6. Nicotine patch 14 daily. Follow up with Dr. Randy Lou on 04/27/2018; Dr. Varner on 04/15/2018; Dr. Devine on 04/16/[address] Potter on 04/23/2018. IV antibiotics have been arranged at the [facility]. Wound care as per Dr. Devine and Dr. Potter. MMODL / IJN: [id number] /
== END 2018-04-14 18:36 | disposition home or self-care (01) | DRG 299 ==
LOC: EC 10:06 → 6SEL 11:44
PROVIDERS: ADMIT Hospitalist; ATTEND Hospitalist
PROC: 05HF33Z Insertion of Infusion Device into Left Cephalic Vein, Percutaneous Approach (ICD-10-PCS; principal; 2018-04-14 08:00)
PROC: B54NZZA Ultrasonography of Left Upper Extremity Veins, Guidance (ICD-10-PCS; 2018-04-14 08:00)
DX: I83.893 Varicose veins of bilateral lower extremities with other complications (principal); I50.43 Acute on chronic combined systolic (congestive) and diastolic (congestive) heart failure; R78.81 Bacteremia; I48.1 Persistent atrial fibrillation; I83.228 Varicose veins of left lower extremity with both ulcer of other part of lower extremity and inflammation; L03.115 Cellulitis of right lower limb; L03.116 Cellulitis of left lower limb; L97.319 Non-pressure chronic ulcer of right ankle with unspecified severity; Z68.41 Body mass index [BMI] 40.0-44.9, adult; D62 Acute posthemorrhagic anemia; B35.1 Tinea unguium; A49.01 Methicillin susceptible Staphylococcus aureus infection, unspecified site; E66.01 Morbid (severe) obesity due to excess calories; F17.200 Nicotine dependence, unspecified, uncomplicated; I11.0 Hypertensive heart disease with heart failure; I27.29 Other secondary pulmonary hypertension; I48.0 Paroxysmal atrial fibrillation; J44.9 Chronic obstructive pulmonary disease, unspecified; K21.9 Gastro-esophageal reflux disease without esophagitis; L60.3 Nail dystrophy; L97.529 Non-pressure chronic ulcer of other part of left foot with unspecified severity; M19.91 Primary osteoarthritis, unspecified site; M20.5X9 Other deformities of toe(s) (acquired), unspecified foot; Z79.82 Long term (current) use of aspirin; Z80.3 Family history of malignant neoplasm of breast; Z82.49 Family history of ischemic heart disease and other diseases of the circulatory system; Z83.3 Family history of diabetes mellitus; Z86.14 Personal history of Methicillin resistant Staphylococcus aureus infection; Z91.14 Patient's other noncompliance with medication regimen; Z79.891 Long term (current) use of opiate analgesic; Z79.899 Other long term (current) drug therapy
CPT/HCPCS: 36415; 36569; 71046; 76937; 80048; 80051; 80053; 80202; 82565; 83605; 84484; 84520; 85025; 85027; 85610; 85730; 86140; 86850; 86900; 86901; 86920; 87040; 87070; 87077; 87186; 87205; 93005; 93306; 94640; 94760; 96361; 96365; 96376; 99284

== ENCOUNTER → 2018-04-30 | Outpatient (CLI) | payer SELFPAY | END | disposition home or self-care (01) | LOC: LABWHC1 13:21 | PROVIDERS: ATTEND Internal Medicine Infectious Disease | DX: R78.81 Bacteremia (principal) | CPT/HCPCS: 36415; 87040 ==

== ENCOUNTER 2018-05-03 14:29 | Inpatient (IN) | payer OTHER ==
[2018-05-03] MEDS ORDERED: FUROSEMIDE 10 MG/ML 4 ML VIAL IV STA (15:21)
--- NOTE | 2018-05-03 15:26 | ED ---
General Adult HPI - General Chief complaint: Recheck/Abnormal Lab/Rx Stated complaint: Male Time Seen by Provider: 05/03/18 14:59 Source: patient Mode of arrival: ambulatory Limitations: no limitations - History of Present Illness Initial comments: Patient is a 57-year-old male presenting for lower extremity edema and testicular swelling. 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 States that over the last 2 weeks, he has had increased swelling in his legs as well as his testicles and scrotum is now size of a coconut per the patient. Patient denies any chest pain but admits to shortness of breath with exertion. He also denies any infectious type symptoms such as coughing, fevers/chills as well as abdominal pain, nausea/vomiting/diarrhea. - Related Data Home Medications Medication Instructions Recorded Confirmed Acetaminophen Tab [Tylenol] 1,000 mg PO DAILY@0600 11/29/16 04/24/18 Allergies Allergy/AdvReac Type Severity Reaction Status Date / Time No Known Allergies Allergy Verified 05/03/18 14:56 Review of Systems ROS Statement: Those systems with pertinent positive or pertinent negative responses have been documented in the HPI. Constitutional: Negative for chills, fatigue and fever. HENT: Negative for congestion. Respiratory: Negative for chest tightness, and wheezing. Negative for cough. Positive for shortness breath Cardiovascular: Negative for chest pain and palpitations. Positive for lower extremity edema Gastrointestinal: Negative for abdominal pain. Negative for abdominal distention , diarrhea, nausea and vomiting. Genitourinary: Negative for dysuria. Positive for scrotum swelling Musculoskeletal: Negative for back pain, neck pain and neck stiffness. Skin: Positive for color change. Neurological: Negative for dizziness, speech difficulty, weakness and light- headedness. Psychiatric/Behavioral: Negative for agitation and confusion. Negative for anxiety ROS Other: All systems not noted in ROS Statement are negative. Past Medical History Past Medical History: Atrial Fibrillation, Atrial Flutter, Heart Failure, COPD, GI Bleed, Hypertension, Syncope Additional Past Medical History / Comment(s): Bilateral lower leg edema/weeping with L leg worse-pt states he has had this problem for approximately 5 years and gotten worse past 2 years, chronic lower leg pain, paroxysmal A fib with RVR , lower GI bleed, states he has a "clot" behind his heart, vertigo. BACTEREMIA. Leg wounds History of Any Multi-Drug Resistant Organisms: MRSA Date of last positivie culture/infection: 6 YEARS AGO-treated in [facility] MDRO Source:: LEFT ABD Past Surgical History: Bowel Resection, EPS Additional Past Surgical History / Comment(s): Bowel resection d/t a fistula, colonoscopy, EPS and cardioversion. Past Anesthesia/Blood Transfusion Reactions: No Reported Reaction, Motion Sickness Past Psychological History: Anxiety, Depression Smoking Status: Current some day smoker Past Alcohol Use History: None Reported Past Drug Use History: None Reported - Past Family History Mother Family Medical History: Cancer Additional Family Medical History / Comment(s): Mother had breast cancer. She is 84 yrs old. Father Family Medical History: Cancer, Chest Pain / Angina, Coronary Artery Disease ( CAD), Diabetes Mellitus, Hypertension Additional Family Medical History / Comment(s): Father had prostrate and testicular cancer. He at the age of 65yrs but pt not sure exact cause of because he had multiple health problems. General Exam - General Exam Comments Initial Comments: Constitutional: Pt is oriented to person, place, and time. Pt appears well- developed and well-nourished. No distress. HENT: Head: Normocephalic and atraumatic. Eyes: EOM are normal. Neck: Normal range of motion. Neck supple. Cardiovascular: Tachycardia present, regular rhythm, S1 normal, S2 normal and normal heart sounds. Exam reveals no gallop and no friction rub. No murmur heard. 2+ pitting edema of the lower extremities Pulmonary/Chest: Effort normal and breath sounds normal. No tachypnea and no bradypnea. No respiratory distress. No wheezes or rales noted. Abdominal: Soft. Bowel sounds are normal. Pt exhibits no shifting dullness, no distension, no pulsatile liver, no fluid wave, no abdominal bruit and no ascites. There is no tenderness. There is no rigidity, no rebound, no guarding, no tenderness at McBurney's point and negative Yap's sign. Musculoskeletal: Normal range of motion. : Diffuse scrotal edema with no tenderness palpation Neurological: Pt is alert and oriented to person, place, and time. No cranial nerve deficit. Skin: Skin is warm and dry. No rash noted. Pt is not diaphoretic. Chronic skin changes with open wounds and erythema of bilateral lower extremities Psychiatric: Pt has a normal mood and affect. Pt behavior is normal. Thought content normal. Limitations: no limitations Course Vital Signs 05/03/18 05/03/18 05/03/18 14:52 15:50 16:54 Temperature 97.8 F Pulse Rate 132 H 98 Respiratory 20 20 22 Rate Blood Pressure 132/75 128/77 O2 Sat by Pulse 98 98 Oximetry 05/03/18 17:09 Temperature Pulse Rate 101 H Respiratory 20 Rate Blood Pressure 144/102 O2 Sat by Pulse 100 Oximetry EKG Findings - EKG Comments: EKG Findings:: EKG shows atrial fibrillation with RVR, rate 111, QRS duration 96 , QTC 489. There are no significant ST depressions or elevations. Medical Decision Making - Medical Decision Making Laboratory studies show that there was no significant leukocytosis and from a cardiac standpoint, EKG showed no significant ST depressions or elevations. Troponin was also noted to be negative but because the patient has a concerning story and a heart score of 5, it is believed that he should be placed in observation at the minimum for continued evaluation and intervention if needed. Patient is not noted to have chest pain at the time of disposition.Explained all labs and diagnostic test results and that we will admit patient to hospital. Pt is agreeable to plan and case has been discussed with Dr. Michelle and they agree to accept the pt. - Lab Data Result diagrams: 05/03/18 15:52 05/03/18 15:52 Lab Results 05/03/18 05/03/18 05/03/18 Range/Units 15:52 15:52 15:52 WBC 6.3 (3.8-10.6) k/uL RBC 3.48 L (4.30-5.90) m/uL Hgb 7.8 L (13.0-17.5) gm/dL Hct 26.9 L (39.0-53.0) % MCV 77.4 L (80.0-100.0) fL MCH 22.3 L (25.0-35.0) pg MCHC 28.9 L (31.0-37.0) g/dL RDW 17.9 H (11.5-15.5) % Plt Count 400 (150-450) k/uL Neutrophils % 57 % Lymphocytes % 20 % Monocytes % 8 % Eosinophils % 13 % Basophils % 1 % Neutrophils # 3.6 (1.3-7.7) k/uL Lymphocytes # 1.3 (1.0-4.8) k/uL Monocytes # 0.5 (0-1.0) k/uL Eosinophils # 0.8 H (0-0.7) k/uL Basophils # 0.1 (0-0.2) k/uL Hypochromasia Marked Poikilocytosis Moderate Anisocytosis Slight Microcytosis Slight PT (9.0-12.0) sec INR (<1.2) APTT (22.0-30.0) sec Sodium 140 (137-145) mmol/L Potassium 4.5 (3.5-5.1) mmol/L Chloride 108 H (98-107) mmol/L Carbon Dioxide 24 (22-30) mmol/L Anion Gap 8 mmol/L BUN 19 (9-20) mg/dL Creatinine 1.00 (0.66-1.25) mg/dL Est GFR (CKD-EPI)AfAm >90 (>60 ml/min/1.73 sqM) Est GFR (CKD-EPI)NonAf 84 (>60 ml/min/1.73 sqM) Glucose 99 (74-99) mg/dL Calcium 8.6 (8.4-10.2) mg/dL Magnesium 2.0 (1.6-2.3) mg/dL Total Bilirubin 0.8 (0.2-1.3) mg/dL AST 19 (17-59) U/L ALT 13 L (21-72) U/L Alkaline Phosphatase 128 H (38-126) U/L Troponin I (0.000-0.034) ng/mL NT-Pro-B Natriuret Pep 5000 pg/mL Total Protein 6.8 (6.3-8.2) g/dL Albumin 3.6 (3.5-5.0) g/dL Urine Color Urine Appearance (Clear) Urine pH (5.0-8.0) Ur Specific Cecilia (1.001-1.035) Urine Protein (Negative) Urine Glucose (UA) (Negative) Urine Ketones (Negative) Urine Blood (Negative) Urine Nitrite (Negative) Urine Bilirubin (Negative) Urine Urobilinogen (<2.0) mg/dL Ur Leukocyte Esterase (Negative) 05/03/18 05/03/18 05/03/18 Range/Units 15:52 15:52 16:24 WBC (3.8-10.6) k/uL RBC (4.30-5.90) m/uL Hgb (13.0-17.5) gm/dL Hct (39.0-53.0) % MCV (80.0-100.0) fL MCH (25.0-35.0) pg MCHC (31.0-37.0) g/dL RDW (11.5-15.5) % Plt Count (150-450) k/uL Neutrophils % % Lymphocytes % % Monocytes % % Eosinophils % % Basophils % % Neutrophils # (1.3-7.7) k/uL Lymphocytes # (1.0-4.8) k/uL Monocytes # (0-1.0) k/uL Eosinophils # (0-0.7) k/uL Basophils # (0-0.2) k/uL Hypochromasia Poikilocytosis Anisocytosis Microcytosis PT 11.2 (9.0-12.0) sec INR 1.2 H (<1.2) APTT 25.1 (22.0-30.0) sec Sodium (137-145) mmol/L Potassium (3.5-5.1) mmol/L Chloride (98-107) mmol/L Carbon Dioxide (22-30) mmol/L Anion Gap mmol/L BUN (9-20) mg/dL Creatinine (0.66-1.25) mg/dL Est GFR (CKD-EPI)AfAm (>60 ml/min/1.73 sqM) Est GFR (CKD-EPI)NonAf (>60 ml/min/1.73 sqM) Glucose (74-99) mg/dL Calcium (8.4-10.2) mg/dL Magnesium (1.6-2.3) mg/dL Total Bilirubin (0.2-1.3) mg/dL AST (17-59) U/L ALT (21-72) U/L Alkaline Phosphatase (38-126) U/L Troponin I 0.057 H* (0.000-0.034) ng/mL NT-Pro-B Natriuret Pep pg/mL Total Protein (6.3-8.2) g/dL Albumin (3.5-5.0) g/dL Urine Color Light Yellow Urine Appearance Clear (Clear) Urine pH 6.0 (5.0-8.0) Ur Specific Cecilia 1.008 (1.001-1.035) Urine Protein Negative (Negative) Urine Glucose (UA) Negative (Negative) Urine Ketones Negative (Negative) Urine Blood Negative (Negative) Urine Nitrite Negative (Negative) Urine Bilirubin Negative (Negative) Urine Urobilinogen <2.0 (<2.0) mg/dL Ur Leukocyte Esterase Negative (Negative) Disposition Clinical Impression: Scrotal edema, Atrial fibrillation with RVR Disposition: ADMITTED IP TO THIS HOSP Condition: Good Is patient prescribed a controlled substance at d/c from ED?: No Referrals: Casey Varner MD [Primary Care Provider] - 1-2 days Decision to Admit Reason: Admit from EC Decision Date: 05/03/18 Decision Time: 17:45
[2018-05-03] MEDS ORDERED: DILTIAZEM DRIP BOLUS FROM BAG 1 MG SOLN IV ONE (16:03)
[2018-05-03 16:20] LABS: Anisocytosis Slight; Basophils # (A) 0.1 k/uL (0-0.2); Basophils % (A) 1 %; Eosinophils # (A) 0.8 k/uL (0-0.7); Eosinophils % (A) 13 %; HCT 26.9 % (39.0-53.0); HGB 7.8 gm/dL (13.0-17.5); Hypochromasia Marked; Lymphocytes # (A) 1.3 k/uL (1.0-4.8); Lymphocytes % (A) 20 %; MCH 22.3 pg (25.0-35.0); MCHC 28.9 g/dL (31.0-37.0); MCV 77.4 fL (80.0-100.0); Mean Platelet Volume 6.9; Microcytosis Slight; Monocytes # (A) 0.5 k/uL (0-1.0); Monocytes % (A) 8 %; Neutrophils # (A) 3.6 k/uL (1.3-7.7); Neutrophils % (A) 57 %; Platelet Count 400 k/uL (150-450); Poikilocytosis Moderate; RBC 3.48 m/uL (4.30-5.90); RDW 17.9 % (11.5-15.5); WBC 6.3 k/uL (3.8-10.6)
--- NOTE | 2018-05-03 16:27 | XR ---
EXAMINATION TYPE: XR chest 2V DATE OF EXAM: 05/03/2018 COMPARISON: 04/09/2018 HISTORY: Short of breath TECHNIQUE: Frontal and lateral views of the chest are obtained. FINDINGS: There is mild blunting of the posterior costophrenic angles on the lateral view. Heart tonja ears enlarged. There is no gross heart failure. There are chest leads. IMPRESSION: Mild cardiomegaly. Small pleural effusions are increased compared to old exam.
[2018-05-03 16:37] LABS: ALT 13 U/L (21-72); AST 19 U/L (17-59); Albumin 3.6 g/dL (3.5-5.0); Alkaline Phosphatase 128 U/L (38-126); Anion Gap 8 mmol/L; Blood Urea Nitrogen 19 mg/dL (9-20); Calcium 8.6 mg/dL (8.4-10.2); Carbon Dioxide 24 mmol/L (22-30); Chloride 108 mmol/L (98-107); Glucose 99 mg/dL (74-99); INR 1.2 (<1.2); Partial Thromboplastin Time 25.1 sec (22.0-30.0); Potassium 4.5 mmol/L (3.5-5.1); Prothrombin Time 11.2 sec (9.0-12.0); Sodium 140 mmol/L (137-145); Total Bilirubin 0.8 mg/dL (0.2-1.3); Total Protein 6.8 g/dL (6.3-8.2)
[2018-05-03 16:50] LABS: Appearance,Urine Clear (Clear); Bilirubin,Urine Negative (Negative); Blood,Urine Negative (Negative); Color,Urine Light Yellow; Glucose,Urine (UA) Negative (Negative); Ketones,Urine Negative (Negative); Leukocyte Esterase,Urine Negative (Negative); Nitrite,Urine Negative (Negative); Protein,Urine Negative (Negative); Specific Gravity,Urine 1.008 (1.001-1.035); Urobilinogen,Urine <2.0 mg/dL (<2.0)
[2018-05-03] MEDS: DILTIAZEM 50 MG in SODIUM CHLORIDE 0.9% 40 ML IV SCH ×2 (17:07→20:31)
[2018-05-03] MEDS ORDERED: ACETAMINOPHEN TAB 500 MG TAB PO STA (17:24)
--- NOTE | 2018-05-03 17:40 | US ---
EXAMINATION TYPE: US scrotum with doppler. Grayscale and color Doppler Duplex imaging performed of jaspreet treviño scrotum. DATE OF EXAM: 05/03/2018 COMPARISON: NONE CLINICAL HISTORY: Swelling. Pt states scrotal swelling x 1 week EXAM MEASUREMENTS: TESTICLES: Right Testicle: 4.4 x 2.7 x 4.0 cm Left Testicle: 4.3 x 3.2 x 3.3 cm Right Epididymis: 2.4 cm Left Epididymis: 3.5 cm Doppler performed to assess for testicular vascularity; good bilateral color flow and waveforms are s een. There is no evidence of testicular torsion. Presence of hydroceles: Yes, small amount bilaterally Presence of varicoceles: No Hypoechoic area within left testicle= 1.1 x 0.8 x 1.3 cm Extensive scrotal swelling, enlarge, heterogeneous epididymis bilaterally, heterogeneous testicles bilaterally with hypoechoic area within left testicle IMPRESSION: No evidence of testicular torsion. There is extensive scrotal edema. Small bilateral hydr oceles.
[2018-05-03] MEDS ORDERED: NALOXONE 0.4 MG/ML 1 ML VIAL IV PRN (17:45)
[2018-05-03] MEDS: IPRATROPIUM-ALBUTEROL 3 ML NEB INHALATION SCH (22:38)
--- NOTE | 2018-05-03 22:50 | HP ---
HISTORY AND PHYSICAL DATE OF ADMISSION: 05/03/2018 PRESENTING COMPLAINT: Short of breath. HISTORY OF PRESENTING COMPLAINT: This is a 57-year-old patient who was here in the hospital, discharged about two or three weeks ago, never got his prescription filled as his Medicaid never came through and the patient has become more and more short of breath. Patient started having lower extremity swelling, scrotal swelling. The patient follows with family doctor, Dr. Varner. On the last admission, patient had severe bleeding from his prominent varicose vein that led to severe blood loss anemia requiring syncope. The patient also had a large venous ulcer on the left lower extremity that is infected with MSSA. The patient has known congestive heart failure with EF of 40%, COPD, as patient was a smoker. Also has been found to have atrial fibrillation. Prior to that, the patient has not been really following with physicians. Does feel weak and tired. Appetite is okay otherwise. REVIEW OF SYSTEMS: CONSTITUTIONAL: Tired. HEENT: None. RESPIRATORY: As above with some wheezing. CARDIOVASCULAR: As above with edema. GASTROINTESTINAL: None. GENITOURINARY: None. MUSCULOSKELETAL: Pain in the joints. DERMATOLOGICAL: Varicose veins also on the left lower extremity. HEMATOLOGICAL: None. LYMPHATICS: none. PSYCHIATRY none. NEUROLOGICAL: None. PAST MEDICAL HISTORY: Past medical history, varicose veins, venous ulcer on the left lower extremity, CHF, EF 40%, hypertensive heart disease, secondary pulmonary hypertension, COPD, atrial fibrillation, GERD, osteoarthritis, onychomycosis. 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 Cardioversion. SOCIAL HISTORY: The patient lives in a hotel. Mother drives him to his appointments. 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 The patient is smoking 1/2 a pack a day for several years, was drinking two fifths of whiskey on weekends up until recently. FAMILY HISTORY: Mother had breast cancer. HOME MEDICATIONS: The patient was discharged on these medications but never got fill up on his prescriptions: 1. Ventolin HFA 1-2 puffs q.6h p.r.n. 2. Daptomycin 1000 mg p.o. for 10 days. 3. Lasix 40 mg a day. 4. Lopressor 25 mg b.i.d. 5. Nicotine patch. ALLERGIES: None. PHYSICAL EXAMINATION: VITAL SIGNS: Temperature 97.8, pulse 132, respiration 20, blood pressure 132/75, pulse ox 98% on room air. GENERAL APPEARANCE: Well built, BMI 44.5. Sitting up, tired on the edge of the bed EYES: Pupils equal. Conjunctivae normal. HEENT: External appearance of nose and ears normal. Oral cavity normal. NECK: Short, thick. JVD unable to assess. Mass not palpable. RESPIRATORY: Effort increased. LUNGS: Decreased breath sounds. Some wheezing. CARDIOVASCULAR: Heart sounds irregular. Edema present. ABDOMEN: Soft, distended, soft. Liver and spleen not palpable. LYMPHATICS: No lymph nodes palpable in the neck and axilla. PSYCHIATRY: Alert and oriented x3. Mood and affect normal. NEUROLOGICAL: Pupils equal. Cranial nerves grossly intact. Power and sensation grossly intact. INVESTIGATIONS: White count 6.3, hemoglobin 7.8, potassium 4.5. BUN and creatinine is normal. ProBNP is 5000. UA negative. EKG tracing personally reviewed by me shows atrial fibrillation, rate around 120. Chest x-ray film personally reviewed by me shows cardiomegaly with congestive heart failure and fluid in the horizontal fissure. ASSESSMENT: 1. Acute on chronic congestive heart failure exacerbation from systolic dysfunction, ejection fraction 40% from hypertensive heart disease. 2. Hypertensive heart disease. 3. Secondary pulmonary hypertension. 4. Chronic obstructive pulmonary disease in a current smoker. 5. Persistent atrial fibrillation, rate uncontrolled. 6. Gastroesophageal reflux disease. 7. Primary osteoarthritis. 8. Morbid obesity BMI 44. 9. Large venous ulcer left lower extremity. 10.Prominent varicose veins in the lower extremity. PLAN: Cardiology was consulted and Dr. Devine was consulted for left leg wounds. Will also have Dr. Devine look at the patient. fish hatchery worker to get involved. Will ask the older adult social work specialist to look at the patient and go from there. Copy to Dr. Varner. MMODL / IJN: [id number] /
[2018-05-04] MEDS: DILTIAZEM 50 MG in SODIUM CHLORIDE 0.9% 40 ML IV SCH (06:38)
[2018-05-04] MEDS: IPRATROPIUM-ALBUTEROL 3 ML NEB INHALATION SCH ×4 (08:09→20:08)
--- NOTE | 2018-05-04 09:46 | P.CRDCN ---
History of Present Illness Consult date: 05/04/18 Requesting physician: Ramses Mccann Consult reason: atrial fibrillation Chief complaint: Lower extremity edema, testicular swelling. History of present illness: This is a pleasant 57-year-old gentleman with known history of hypertension, hyperlipidemia, obesity, COPD, nicotine dependence, paroxysmal atrial fibrillation with prior cardioversion and EP studies, states that he had been on xarelto in the past but because of GI bleeding he stopped taking it. Patient does not follow in our office, however from previous records it appears that he used to see Dr. ROBYN Lou in the past. Patient was just recently in the hospital, discharged on the . He was admitted on that occasion with severe bleeding from his varicose veins, large venous ulcers, positive blood cultures for MSSA. According to the patient, he has not been taking his Lasix for quite some time at home because he could not afford it, has been putting on swelling in his entire body. Patient does state that he has been more short of breath than usual. Chest x-ray on admission here shows mild cardiomegaly with small pleural effusions increase as compared with prior. EKG shows atrial fibrillation with moderately rapid ventricular response. Blood pressure 122/70 with a heart rate in the 70s, 95% on room air. White blood cell count 6.3, hemoglobin 7.8, platelet count 400. Sodium 140, potassium 4.5, BUN 19, creatinine 1.0. BNP level 5000, troponins 0.057, 0.061, 0.052. Patient's hemoglobin on this recent admission was in the 7 range, last year his hemoglobin was 15.2. He states last time he had a colonoscopy was approximately 7 years ago. Past Medical History Past Medical History: Atrial Fibrillation, Atrial Flutter, Heart Failure, COPD, GI Bleed, Hypertension, Syncope Additional Past Medical History / Comment(s): Bilateral lower leg edema/weeping with L leg worse-pt states he has had this problem for approximately 5 years and gotten worse past 2 years, chronic lower leg pain, paroxysmal A fib with RVR , lower GI bleed, states he has a "clot" behind his heart, vertigo. BACTEREMIA. Leg wounds History of Any Multi-Drug Resistant Organisms: MRSA Date of last positivie culture/infection: 6 YEARS AGO-treated in [facility] MDRO Source:: LEFT ABD Past Surgical History: Bowel Resection, EPS Additional Past Surgical History / Comment(s): Bowel resection d/t a fistula, colonoscopy, EPS and cardioversion. Past Anesthesia/Blood Transfusion Reactions: No Reported Reaction, Motion Sickness Past Psychological History: Anxiety, Depression Additional Psychological History / Comment(s): Pt resides alone in a hotel. He states there are no stairs. He is able to drive, but does not currently have a car. His mother drives him to appointments. 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 Smoking Status: Current some day smoker Past Alcohol Use History: None Reported Additional Past Alcohol Use History / Comment(s): Pt started smoking in 1974 and is less than 0.5 ppd smoker. Pt states he drinks 2 fifths of whiskey on weekends and last drank alcohol 3 weeks ago. Past Drug Use History: None Reported - Past Family History Mother Family Medical History: Cancer Additional Family Medical History / Comment(s): Mother had breast cancer. She is 84 yrs old. Father Family Medical History: Cancer, Chest Pain / Angina, Coronary Artery Disease ( CAD), Diabetes Mellitus, Hypertension Additional Family Medical History / Comment(s): Father had prostrate and testicular cancer. He at the age of 65yrs but pt not sure exact cause of because he had multiple health problems. Medications and Allergies Home Medications Medication Instructions Recorded Confirmed Type Acetaminophen Tab [Tylenol] 1,000 mg PO Q6H PRN 11/29/16 05/03/18 History Allergies Allergy/AdvReac Type Severity Reaction Status Date / Time No Known Allergies Allergy Verified 05/03/18 17:55 Physical Exam Vitals: Vital Signs Temp Pulse Pulse Resp BP BP Pulse Ox 05/04/18 04:00 97.0 F L 87 18 125/63 97 05/03/18 23:57 90 18 05/03/18 23:55 97.2 F L 90 18 110/56 97 05/03/18 21:29 97.8 F 99 18 127/62 100 05/03/18 20:00 99 18 05/03/18 18:44 98.4 F 84 18 131/71 98 05/03/18 17:47 95 20 127/65 100 05/03/18 17:09 101 H 20 144/102 100 05/03/18 16:54 22 05/03/18 15:50 98 20 128/77 98 05/03/18 14:52 97.8 F 132 H 20 132/75 98 Intake and Output 05/03/18 05/04/18 05/04/18 22:59 06:59 14:59 Intake Total 17 50 240 Output Total 250 Balance -233 50 240 Intake: Intake, IV Titration 17 50 Amount Diltiazem 50 mg In Sodium 17 50 Chloride 0.9% 40 ml @ Per Protocol IV .Q0M [facility] Rx#:[id number] Oral 240 Output: Urine 250 Other: Voiding Method Toilet Toilet # Voids 1 1 Weight 161.57 kg 156.1 kg PHYSICAL EXAMINATION: GENERAL: 57 year old gentleman in no acute distress at the time of my examination HEENT: Head is atraumatic, normocephalic. Pupils equal, round. Sclera anicteric. Conjunctiva are clear. Mucous membranes of the mouth are moist. Neck is supple. Unable to assess for elevated jugular venous pressure. No carotid bruit is heard. HEART EXAMINATION: Heart S1, S2 normal. No murmur or gallop heard. CHEST EXAMINATION: Lungs are clear to auscultation and precussion. No chest wall tenderness is noted on palpation or with deep breathing. ABDOMEN: Soft, obese, nontender. Bowel sounds are heard. No organomegaly noted. EXTREMITIES:[ 1+ peripheral pulses with 3+ evidence of peripheral edema, evidence of chronic venous stasis and discoloration of the skin. Positive open ulcerated areas, dressings in place. NEUROLOGIC patient is awake, alert and oriented X3. . Results 05/03/18 15:52 05/03/18 15:52 Cardiac Enzymes 05/03/18 05/03/18 05/03/18 Range/Units 15:52 15:52 21:27 AST 19 (17-59) U/L Troponin I 0.057 H* 0.061 H* (0.000-0.034) ng/mL 05/04/18 Range/Units 05:11 AST (17-59) U/L Troponin I 0.052 H* (0.000-0.034) ng/mL Coagulation 05/03/18 Range/Units 15:52 PT 11.2 (9.0-12.0) sec APTT 25.1 (22.0-30.0) sec CBC 05/03/18 Range/Units 15:52 WBC 6.3 (3.8-10.6) k/uL RBC 3.48 L (4.30-5.90) m/uL Hgb 7.8 L (13.0-17.5) gm/dL Hct 26.9 L (39.0-53.0) % Plt Count 400 (150-450) k/uL Comprehensive Metabolic Panel 05/03/18 Range/Units 15:52 Sodium 140 (137-145) mmol/L Potassium 4.5 (3.5-5.1) mmol/L Chloride 108 H (98-107) mmol/L Carbon Dioxide 24 (22-30) mmol/L BUN 19 (9-20) mg/dL Creatinine 1.00 (0.66-1.25) mg/dL Glucose 99 (74-99) mg/dL Calcium 8.6 (8.4-10.2) mg/dL AST 19 (17-59) U/L ALT 13 L (21-72) U/L Alkaline Phosphatase 128 H (38-126) U/L Total Protein 6.8 (6.3-8.2) g/dL Albumin 3.6 (3.5-5.0) g/dL Current Medications Generic Name Dose Route Start Last Admin Trade Name Freq PRN Reason Stop Dose Admin Acetaminophen 1,000 mg 05/03/18 20:48 Tylenol Tab PO Q6H PRN Pain Albuterol/Ipratropium 3 ml 05/03/18 21:47 05/04/18 08:09 Duoneb 0.5 Mg-3 Mg/3 Ml Soln INHALATION Not Given RT-QID YVETTE Diltiazem HCl 50 mg/ Sodium 50 mls @ 0 mls/hr 05/03/18 16:15 05/04/18 06:38 Chloride IV 5 ml/hr .Q0M YVETTE 5 mls/hr Administration Protocol Per Protocol Naloxone HCl 0.2 mg 05/03/18 17:45 Narcan IV Q2M PRN Opioid Reversal Intake and Output 05/03/18 05/04/18 05/04/18 22:59 06:59 14:59 Intake Total 17 50 240 Output Total 250 Balance -233 50 240 Intake: Intake, IV Titration 17 50 Amount Diltiazem 50 mg In Sodium 17 50 Chloride 0.9% 40 ml @ Per Protocol IV .Q0M [facility] Rx#:[id number] Oral 240 Output: Urine 250 Other: Voiding Method Toilet Toilet # Voids 1 1 Weight 161.57 kg 156.1 kg 05/03/18 15:52 05/03/18 15:52 EKG Interpretations (text) EKG shows atrial fibrillation with moderately rapid ventricular response Assessment and Plan Plan: Assessment and plan #1 systolic congestive heart failure acute on chronic #2 significant generalized in the lower extremities and scrotal area #3 hypertension #4 COPD #5 nicotine dependence #6 chronic persistent atrial fibrillation, not on anticoagulation because of history of GI bleed on Xarelto #7 morbid obesity #8 positive ulcerations to the lower extremity with evidence of MSSA #9 history of noncompliance #10 anemia, hemoglobin 7.8. #11 abnormal troponins, not consistent with acute coronary syndrome, likely secondary to supply and demand mismatch. Plan Patient had an echocardiogram with Doppler study performed earlier this month which revealed an ejection fraction of 45-50%. We will not repeat an echo on this admission. We will put the patient on IV Lasix, monitoring intake and output along with daily weights and daily lytes BUN and creatinine. We will discontinue the IV Cardizem and start the patient on a low-dose beta georges. I did have a discussion with the patient regarding anticoagulation in spite of the fact that he had bleeding on xarelto in the past. He continues to be anemic with a hemoglobin of 7.8. No evidence of active bleeding. If patient is cleared for anticoagulation, he is willing to try Eliquis. Further recommendations to follow. DNP note has been reviewed, I agree with a documented findings and plan of care. Patient was seen and examined.
[2018-05-04] MEDS: FUROSEMIDE 10 MG/ML 4 ML VIAL IV SCH ×2 (12:26→20:38)
--- NOTE | 2018-05-04 16:51 | CONS ---
DATE OF CONSULTATION: 05/04/2018 This is a 57 -year-old gentleman who is known to me from the past. Patient was admitted to a few weeks ago with venous stasis ulcer left lower extremity and some varicosity right ankle. For that, patient had bleeding which the patient has been coming to the [facility] to follow up with me and today he came to the emergency room because he had shortness of breath and the patient has been admitted for further evaluation. He has a history of congestive heart failure, ejection fraction of 40%. The patient also has COPD. PHYSICAL EXAMINATION: Patient was seen in his room. VASCULAR: Brachial, radial pulses are present. Femorals are present. Patient has a venous stasis ulcer left lower extremity and some brown induration and varicosities right lower extremity. At this point, we have been treating with compression wrap and local wound care , which we will continue. When patient discharged from the hospital, will follow up in the wound clinic. MMTOMEKA / LARRY: [id number] / MTDFlip
--- NOTE | 2018-05-04 20:33 | PN ---
PROGRESS NOTE DATE OF SERVICE: 05/04/2018 PRESENTING COMPLAINT: Shortness of breath. INTERVAL HISTORY: This patient, who was not taking his medication because of insurance reasons, presented with significant edema from CHF and also underlying atrial fibrillation, uncontrolled. Patient is feeling a bit better today. Kehinde wrap on the lower extremity. No bleeding. Heart rate is better controlled today. combination worker states that the patient has got his Medicaid now; should be able to get his medications. He does feel weak and tired. REVIEW OF SYSTEMS: Done for constitutional, cardiovascular, GI, pulmonary; relevant findings as above. CURRENT MEDICATIONS: Reviewed. They include: 1. IV Lasix. 2. Lopressor 25 b.i.d. 3. DuoNeb. PHYSICAL EXAMINATION: Temperature 97.8, pulse 81, respiration 18, blood pressure 130/91, pulse ox 95% on room air. GENERAL APPEARANCE: Sitting up, awake. EYES: Pupils equal. Conjunctivae normal. HEENT: External appearance of nose and ears normal. Oral cavity normal. NECK: JVD not raised. Mass not palpable. RESPIRATORY: Effort increased. LUNGS: Decreased breath sounds. Wheezing. CARDIOVASCULAR: Heart sounds irregular. Edema present with Kehinde wrap in place. ABDOMEN: Distended, soft. Liver and spleen not palpable. PSYCHIATRY: Alert and oriented x3. Mood and affect normal. INVESTIGATIONS: Telemetry shows atrial fibrillation, rate controlled. Troponin 0.052. ASSESSMENT: 1. Acute on chronic congestive heart failure exacerbation from systolic dysfunction, ejection fraction 40%, from hypertensive heart disease. 2. Hypertensive heart disease. 3. Secondary pulmonary hypertension from congestive heart failure. 4. Chronic obstructive pulmonary disease in a current smoker. 5. Persistent atrial fibrillation, rate uncontrolled on presentation, now better controlled. 6. Gastroesophageal reflux disease. 7. Primary osteoarthritis. 8. Morbid obesity with a body mass index of 44. 9. Large venous ulcer on the lower extremity, non-bleeding. 10.Prominent varicose in the lower extremity, not bleeding. PLAN: The patient earlier was not on anticoagulation because of bleeding varicose veins. Patient should be able to go back on anticoagulation; Cardiology is ordering the same. In the meantime, continue patient on IV Lasix. MMODL / IJN: [id number] /
[2018-05-04] MEDS: NYSTATIN 100,000 UNIT/GM POWD 15 GM TOPICAL SCH (20:38)
[2018-05-04] MEDS: ACETAMINOPHEN TAB 500 MG TAB PO PRN (20:38)
[2018-05-04] MEDS: METOPROLOL TARTRATE 25 MG TAB PO SCH (20:38)
--- NOTE | 2018-05-04 23:15 | CONS ---
CONSULTATION DATE OF SERVICE: 05/04/2018 REASON FOR CONSULTATION: Left leg wound and a question of cellulitis. HISTORY OF PRESENT ILLNESS: The patient is a 57-year-old male who was recently admitted at [facility] with bilateral lower extremity venostasis ulcers, more marked on the left leg, with secondary cellulitis and bacteremia. The patient did have evidence of MSSA bacteremia. His follow-up blood cultures were negative. The patient [facility] and he was on IV antibiotic therapy. The patient completed his IV daptomycin as of 05/03/2018 did had a follow-up blood culture completed on 04/30/2018 which has been negative so far. The patient is now presenting to the [facility] ER with the chief complaints of lower extremity as well as testicular swelling. Unfortunately the patient was unable to get his prescription filled after he was discharged from the hospital, as his Medicaid did not start. The patient's main symptoms remain to be swelling in the lower extremities and the testicular area that is becoming more uncomfortable for him. The discomfort is more of a dull aching pain. The patient denies having any chest pain or shortness of breath or cough. Local care to the left leg wound has been Aquacel Silver dressing and Kehinde for compression. I was asked to see the patient today for further recommendations regarding local wound care and need for antibiotic therapy. REVIEW OF SYSTEMS: Positive points have been mentioned in the HPI. Rest of systems have been negative. PAST MEDICAL HISTORY: 1. Atrial fibrillation. 2. Atrial flutter. 3. Heart failure. 4. COPD. 5. GI bleed. 6. Hypertension. 7. Syncope. 8. Bilateral lower extremity venostasis ulcers with skin cellulitis and MSSA bacteremia. PAST SURGICAL HISTORY: 1. Bowel resection. 2. Colonoscopy. 3. EPS and cardioversion. PAST PSYCHOLOGICAL HISTORY: Anxiety, depression. SOCIAL HISTORY: Current everyday smoker. No drinking or drug use. FAMILY HISTORY: Mother with history of breast cancer. Father with history of diabetes, prostate cancer. ALLERGIES: NO KNOWN DRUG ALLERGIES. MEDICATIONS: The patient is currently on: 1. Tylenol. 2. DuoNeb. 3. Lasix. 4. Lopressor. 5. Narcan. PHYSICAL EXAMINATION: Blood pressure 125/73 with a pulse of 100, temperature 97.9. He is 99% on room air. General description is a middle-aged male lying in bed in no distress. HEENT examination shows pallor. No scleral icterus. Oral mucosa membrane is dry. No pharyngeal erythema or thrush. NECK: Trachea is central. No thyromegaly. LUNGS: Unlabored breathing. Clear to auscultation anteriorly. No wheeze or crackle. HEART: S1, S2. Irregular rhythm. ABDOMEN: Soft. No tenderness. No guarding or rigidity. EXTREMITIES: Two plus edema of feet. Examination of left leg revealed 2 wounds, both on the lateral and medial side, which currently do not have any slough tissue. No surrounding swelling, redness or any foul-smelling drainage. Neurologically patient is awake, alert, oriented x3. Mood and affect normal. LABS: Hemoglobin 7.8, white count 6.3 with a BUN of 19, creatinine 1.0. Troponin mildly elevated. UA has been negative. DIAGNOSTIC IMPRESSION AND PLAN: Patient with lower extremity venostasis ulcers, currently with no evidence of any cellulitis. The patient did have a recent history of MSSA bacteremia secondary to the same; however, that has been adequately treated, and the patient is currently off antibiotic therapy and his follow-up blood culture has been negative. Would recommend local wound care. PLAN: 1. Aquacel Silver dressing to the leg wound to be changed q.48 hours and Kehinde wrap to both legs to keep the swelling down. 2. No need for any systemic antibiotic therapy. 3. Patient does have evidence of athlete's foot. Would recommend nystatin powder twice a day. 4. We will follow the clinical condition and culture to further adjust medication if needed. Thank you for this consultation. We will follow this patient along with you. MMODL / IJN: [id number] /
[2018-05-05] MEDS: ACETAMINOPHEN TAB 500 MG TAB PO PRN (04:58)
[2018-05-05] MEDS: IPRATROPIUM-ALBUTEROL 3 ML NEB INHALATION SCH ×4 (07:38→21:21)
[2018-05-05] MEDS: METOPROLOL TARTRATE 25 MG TAB PO SCH ×2 (08:27→20:08)
[2018-05-05] MEDS: FUROSEMIDE 10 MG/ML 4 ML VIAL IV SCH ×2 (08:28→20:09)
[2018-05-05] MEDS: NYSTATIN 100,000 UNIT/GM POWD 15 GM TOPICAL SCH ×2 (08:30→20:09)
--- NOTE | 2018-05-05 14:33 | P.PN ---
Subjective Progress Note Date: 05/05/18 This is a pleasant 57-year-old gentleman with known history of hypertension, hyperlipidemia, obesity, COPD, nicotine dependence, paroxysmal atrial fibrillation with prior cardioversion and EP studies, states that he had been on xarelto in the past but because of GI bleeding he stopped taking it. Patient does not follow in our office, however from previous records it appears that he used to see Dr. ROBYN Lou in the past. Patient was just recently in the hospital, discharged on the . He was admitted on that occasion with severe bleeding from his varicose veins, large venous ulcers, positive blood cultures for MSSA. According to the patient, he has not been taking his Lasix for quite some time at home because he could not afford it, has been putting on swelling in his entire body. Patient does state that he has been more short of breath than usual. Chest x-ray on admission here shows mild cardiomegaly with small pleural effusions increase as compared with prior. EKG shows atrial fibrillation with moderately rapid ventricular response. Blood pressure 122/70 with a heart rate in the 70s, 95% on room air. White blood cell count 6.3, hemoglobin 7.8, platelet count 400. Sodium 140, potassium 4.5, BUN 19, creatinine 1.0. BNP level 5000, troponins 0.057, 0.061, 0.052. Patient's hemoglobin on this recent admission was in the 7 range, last year his hemoglobin was 15.2. He states last time he had a colonoscopy was approximately 7 years ago. 05/05/2018 Patient was seen and examined this morning, he is feeling better overall. His weight today is down 3 kg, the edema in his lower extremities has improved significantly. He continues to be in atrial fibrillation, his rate is under adequate control. Hemoglobin today is 7.8. Creatinine today is 1.0. Objective - Vital Signs Vital signs: Vital Signs Temp 97.9 F 05/05/18 07:50 Pulse 92 05/05/18 07:50 Resp 18 05/05/18 07:50 BP 128/71 05/05/18 07:50 Pulse Ox 97 05/05/18 07:50 Intake & Output 05/04/18 05/05/18 05/05/18 18:59 06:59 18:59 Intake Total 480 600 960 Output Total 400 Balance 480 200 960 Weight 153.9 kg Intake: Oral 480 600 960 Output: Urine 400 Other: Voiding Method Toilet Toilet # Voids 2 - Exam PHYSICAL EXAMINATION: GENERAL: 57 year old gentleman in no acute distress at the time of my examination HEENT: Head is atraumatic, normocephalic. Pupils equal, round. Sclera anicteric. Conjunctiva are clear. Mucous membranes of the mouth are moist. Neck is supple. Unable to assess for elevated jugular venous pressure. No carotid bruit is heard. HEART EXAMINATION: Heart S1, S2 normal. No murmur or gallop heard. CHEST EXAMINATION: Lungs are clear to auscultation and precussion. No chest wall tenderness is noted on palpation or with deep breathing. ABDOMEN: Soft, obese, nontender. Bowel sounds are heard. No organomegaly noted. EXTREMITIES:[ 1+ peripheral pulses with 1+ evidence of peripheral edema, evidence of chronic venous stasis and discoloration of the skin. Bilateral Kehinde wraps in place. Positive open ulcerated areas, dressings in place. NEUROLOGIC patient is awake, alert and oriented X3. . - Labs CBC & Chem 7: 05/03/18 15:52 05/03/18 15:52 Assessment and Plan Plan: Assessment and plan #1 systolic congestive heart failure acute on chronic #2 significant generalized in the lower extremities and scrotal area #3 hypertension #4 COPD #5 nicotine dependence #6 chronic persistent atrial fibrillation, not on anticoagulation because of history of GI bleed on Xarelto #7 morbid obesity #8 positive ulcerations to the lower extremity with evidence of MSSA #9 history of noncompliance #10 anemia, hemoglobin 7.8. #11 abnormal troponins, not consistent with acute coronary syndrome, likely secondary to supply and demand mismatch. Plan Patient had an echocardiogram with Doppler study performed earlier this month which revealed an ejection fraction of 45-50%. We will not repeat an echo on this admission. We'll continue current dose of IV Lasix, continue to monitor intake and output along with daily weights and daily lytes BUN and creatinine. DNP note has been reviewed, I agree with a documented findings and plan of care. Patient was seen and examined.
[2018-05-05] MEDS: LISINOPRIL 5 MG TAB PO SCH (20:08)
--- NOTE | 2018-05-05 23:31 | PN ---
PROGRESS NOTE DATE OF SERVICE: 05/05/2018 PRESENTING COMPLAINT: Short of breath. INTERVAL HISTORY: This patient was not taking his medication because of insurance reasons. He presented with CHF exacerbation, uncontrolled atrial fibrillation, not a candidate for anticoagulation. Breathing is much improved. Swelling is going down. He has got an Kehinde wrap on the lower extremities. Recently treated for MSSA bacteremia. His Medicaid has kicked in, according to him. Overall feeling much better. REVIEW OF SYSTEMS: Done for constitutional, cardiovascular, GI, pulmonary; relevant findings as above. CURRENT MEDICATIONS: Reviewed. They include IV Lasix 40 q.12, Lopressor 25 mg b.i.d. PHYSICAL EXAMINATION: Temperature 98.2, pulse 92, respiration 18, blood pressure 120/82, pulse ox 95% on room air. GENERAL APPEARANCE: Sitting at the edge of the bed, more comfortable. EYES: Pupils equal. Conjunctivae normal. HEENT: External appearance of nose and ears normal. Oral cavity normal. NECK: JVD not raised. Mass not palpable. RESPIRATORY: Effort increased. LUNGS: Decreased breath sounds. CARDIOVASCULAR: Heart sounds irregular. Decreased edema. Kehinde wraps in place. ABDOMEN: Soft, non-tender. Liver and spleen not palpable. PSYCHIATRY: Alert and oriented x3. Mood and affect normal. INVESTIGATIONS: No blood work from today. ASSESSMENT: 1. Acute on chronic congestive heart failure exacerbation from systolic dysfunction, ejection fraction 40%, with hypertensive heart disease, clinically improving. 2. Hypertensive heart disease. 3. Secondary pulmonary hypertension from congestive heart failure. 4. Chronic obstructive pulmonary disease in a current smoker. 5. Persistent atrial fibrillation, rate uncontrolled on presentation, now controlled. 6. Gastroesophageal reflux disease. 7. Primary osteoarthritis. 8. Morbid obesity with body mass index of 44. 9. Large venous ulcer of the lower extremity, improving. 10.Prominent varicose vein in the lower extremity, not bleeding. PLAN: The patient is overall doing much better and hopefully can be switched over to p.o. Lasix by tomorrow. Will coordinate for patient to be discharged home. MMODL / IJN: [id number] /
--- NOTE | 2018-05-05 23:52 | PN ---
PROGRESS NOTE DATE OF SERVICE: 05/05/2018. REASON FOR FOLLOWUP: 1. Left leg venous stasis ulcer. 2. Athlete's foot. INTERVAL HISTORY: The patient is currently afebrile. He is breathing comfortably. Denies significant chest pain or shortness of breath or cough. No abdominal pain, no diarrhea. Denies any pain to his left leg wound area, currently being dressed. EXAMINATION: Blood pressure is 114/68 with a pulse of 83, temperature 97.7. He is 100% on room air. General description is a middle-aged male lying in bed in no distress. Respiratory system: Unlabored breathing. Clear to auscultation anteriorly. Heart S1, S2. Regular rate and rhythm. ABDOMEN: Soft, no tenderness. Legs are currently wrapped up. No obvious drainage on the dressing. LABS: Hemoglobin 7.8, white count 6.3 with a BUN of 19, creatinine 1.0. DIAGNOSTIC IMPRESSION AND PLAN: Patient with a left leg venous stasis ulcer currently with no evidence of any cellulitis. Local wound care to continue with the Aquacel silver dressing. foot local wound care with local care with the Nystatin powder twice a day. Continue supportive care. MMODL / IJN: [id number] /
[2018-05-06 06:50] LABS: Calcium 8.5 mg/dL (8.4-10.2); Potassium 4.1 mmol/L (3.5-5.1)
[2018-05-06] MEDS: IPRATROPIUM-ALBUTEROL 3 ML NEB INHALATION SCH ×4 (07:55→20:12)
[2018-05-06] MEDS: FUROSEMIDE 10 MG/ML 4 ML VIAL IV SCH ×2 (08:04→20:43)
[2018-05-06] MEDS: METOPROLOL TARTRATE 25 MG TAB PO SCH ×2 (08:04→21:52)
[2018-05-06] MEDS: LISINOPRIL 5 MG TAB PO SCH ×2 (08:04→21:52)
--- NOTE | 2018-05-06 14:26 | PN ---
PROGRESS NOTE Next problem patient along the abdomen for consult with #[id number] date of service is 05/06/2018. REASON FOR FOLLOWUP: Left leg venous stasis ulcer. #2 athlete's foot. INTERVAL HISTORY: The patient is currently afebrile. He is breathing comfortably. Denies having any chest pain or shortness of breath or cough. No abdominal pain or any worsening pain to the left leg area wound is currently in no swelling redness or any drainage. EXAMINATION: Blood pressure 106/54, pulse of 70 temperature 97.6, he is 99% on room air. General description is a middle-aged male, up in the room in no distress. RESPIRATORY SYSTEM: Unlabored breathing, clear to auscultation anteriorly. HEART: S1, S2. Regular rate and rhythm. ABDOMEN: Soft, no tenderness. Left leg wounds consistent with degenerative. LABS: BUN of 27, creatinine 1.18. DIAGNOSTIC IMPRESSION AND PLAN: 1. Patient with bilateral lower extremity venostasis of the left leg. Venostasis ulcer, no evidence of any cellulitis. Recommend local wound care with Aquacel Silver packing of the wound to be changed to further followed by an Kehinde wrap to keep the swelling down. 2. Athlete's foot. Nystatin powder, no need for an systemic antibiotic therapy. MMODL / IJN: [id number] /
--- NOTE | 2018-05-06 14:44 | P.PN ---
Subjective Progress Note Date: 05/06/18 This is a pleasant 57-year-old gentleman with known history of hypertension, hyperlipidemia, obesity, COPD, nicotine dependence, paroxysmal atrial fibrillation with prior cardioversion and EP studies, states that he had been on xarelto in the past but because of GI bleeding he stopped taking it. Patient does not follow in our office, however from previous records it appears that he used to see Dr. ROBYN Lou in the past. Patient was just recently in the hospital, discharged on the . He was admitted on that occasion with severe bleeding from his varicose veins, large venous ulcers, positive blood cultures for MSSA. According to the patient, he has not been taking his Lasix for quite some time at home because he could not afford it, has been putting on swelling in his entire body. Patient does state that he has been more short of breath than usual. Chest x-ray on admission here shows mild cardiomegaly with small pleural effusions increase as compared with prior. EKG shows atrial fibrillation with moderately rapid ventricular response. Blood pressure 122/70 with a heart rate in the 70s, 95% on room air. White blood cell count 6.3, hemoglobin 7.8, platelet count 400. Sodium 140, potassium 4.5, BUN 19, creatinine 1.0. BNP level 5000, troponins 0.057, 0.061, 0.052. Patient's hemoglobin on this recent admission was in the 7 range, last year his hemoglobin was 15.2. He states last time he had a colonoscopy was approximately 7 years ago. 05/05/2018 Patient was seen and examined this morning, he is feeling better overall. His weight today is down 3 kg, the edema in his lower extremities has improved significantly. He continues to be in atrial fibrillation, his rate is under adequate control. Hemoglobin today is 7.8. Creatinine today is 1.0. 05/06/2018 Patient seen and examined today, still having some orthopnea but overall states he is feeling better. Continues to diurese well, weight is down 2 kg today. We will add Aldactone to his medication regime repeat chest x-ray tomorrow and continue IV Lasix. BUN 27 and creatinine 1.1. Objective - Vital Signs Vital signs: Vital Signs Temp 97.6 F 05/06/18 11:47 Pulse 80 05/06/18 11:47 Resp 16 05/06/18 11:47 BP 106/64 05/06/18 11:47 Pulse Ox 99 05/06/18 11:47 Intake & Output 05/05/18 05/06/18 05/06/18 18:59 06:59 18:59 Intake Total 960 300 240 Output Total 3 Balance 960 297 240 Weight 151.5 kg Intake: Oral 960 300 240 Output: Urine 3 Other: Voiding Method Toilet Toilet Toilet # Voids 2 1 # Bowel Movements 0 - Exam PHYSICAL EXAMINATION: GENERAL: 57 year old gentleman in no acute distress at the time of my examination HEENT: Head is atraumatic, normocephalic. Pupils equal, round. Sclera anicteric. Conjunctiva are clear. Mucous membranes of the mouth are moist. Neck is supple. Unable to assess for elevated jugular venous pressure. No carotid bruit is heard. HEART EXAMINATION: Heart S1, S2 normal. No murmur or gallop heard. CHEST EXAMINATION: Lungs are clear to auscultation and precussion. No chest wall tenderness is noted on palpation or with deep breathing. ABDOMEN: Soft, obese, nontender. Bowel sounds are heard. No organomegaly noted. EXTREMITIES:[ 1+ peripheral pulses with 1+ evidence of peripheral edema, evidence of chronic venous stasis and discoloration of the skin. Bilateral Kehinde wraps in place. Positive open ulcerated areas, dressings in place. NEUROLOGIC patient is awake, alert and oriented X3. . - Labs CBC & Chem 7: 05/03/18 15:52 05/06/18 06:04 Labs: Abnormal Lab Results - Last 24 Hours (Table) 05/06/18 Range/Units 06:04 BUN 27 H (9-20) mg/dL Assessment and Plan Plan: Assessment and plan #1 systolic congestive heart failure acute on chronic #2 significant generalized in the lower extremities and scrotal area #3 hypertension #4 COPD #5 nicotine dependence #6 chronic persistent atrial fibrillation, not on anticoagulation because of history of GI bleed on Xarelto #7 morbid obesity #8 positive ulcerations to the lower extremity with evidence of MSSA #9 history of noncompliance #10 anemia, hemoglobin 7.8. #11 abnormal troponins, not consistent with acute coronary syndrome, likely secondary to supply and demand mismatch. Plan Patient had an echocardiogram with Doppler study performed earlier this month which revealed an ejection fraction of 45-50%. We will not repeat an echo on this admission. We'll continue current dose of IV Lasix, continue to monitor intake and output along with daily weights and daily lytes BUN and creatinine. Add Aldactone to the medication regime and repeat chest x-ray in the morning. DNP note has been reviewed, I agree with a documented findings and plan of care. Patient was seen and examined.
[2018-05-06] MEDS: NYSTATIN 100,000 UNIT/GM POWD 15 GM TOPICAL SCH ×2 (16:09→20:44)
[2018-05-06] MEDS: SPIRONOLACTONE 25 MG TAB PO SCH (16:09)
--- NOTE | 2018-05-06 23:05 | PN ---
PROGRESS NOTE DATE OF SERVICE: 05/06/2018 PRESENTING COMPLAINT: Short of breath. INTERVAL HISTORY: This is a patient who because of insurance reasons was not taking his medications. He presented with uncontrolled CHF and atrial fibrillation. Breathing continues to improve. Swelling continues to go down. He remains on IV Lasix. Lower extremity Kehinde wraps are present. Recently he completed a course of antibiotics for MSSA bacteremia. Tolerating a diet, feeling much better. REVIEW OF SYSTEMS: Done for constitutional, cardiovascular, GI, pulmonary; relevant findings as above. CURRENT MEDICATIONS: Reviewed. They include IV Lasix. PHYSICAL EXAMINATION: Temperature 97.5, pulse 74, respiration 16, blood pressure 112/60, pulse ox 100% on room air. GENERAL APPEARANCE: Sitting up. Comfortable. EYES: Pupils equal. Conjunctivae normal. HEENT: External appearance of nose and ears normal. Oral cavity normal. NECK: JVD not raised. Mass not palpable. RESPIRATORY: Effort normal. LUNGS: Decreased breath sounds. CARDIOVASCULAR: Heart sounds irregular. Decreased edema. Kehinde wraps are present. ABDOMEN: Soft, nontender. Liver and spleen not palpable. PSYCHIATRY: Alert and oriented x3. Mood and affect normal. INVESTIGATIONS: BUN 27, creatinine 1.18. ASSESSMENT: 1. Acute on chronic congestive heart failure exacerbation from systolic dysfunction, ejection fraction 40%, from hypertensive heart disease, clinically much improved. 2. Hypertensive heart disease. 3. Secondary pulmonary hypertension from congestive heart failure. 4. Chronic obstructive pulmonary disease in a current smoker. 5. Persistent atrial fibrillation, rate uncontrolled on presentation. 6. Gastroesophageal reflux disease. 7. Primary osteoarthritis. 8. Morbid obesity with body mass index of 44. 9. Large venous ulcer of the lower extremity, stable. 10.Prominent varicosity in the lower extremity, not bleeding. PLAN: Continue current medication and treatment plan. Patient should hopefully be able to be switched over to oral Lasix by Cardiology tomorrow and we can discharge the patient accordingly. Care was discussed with the family preservation caseworker, Elizabeth, and the patient. MMODL / IJN: [id number] /
[2018-05-07 06:40] LABS: Calcium 8.5 mg/dL (8.4-10.2); Potassium 4.1 mmol/L (3.5-5.1)
[2018-05-07] MEDS: FUROSEMIDE 10 MG/ML 4 ML VIAL IV SCH ×2 (07:56→20:33)
[2018-05-07] MEDS: SPIRONOLACTONE 25 MG TAB PO SCH (07:56)
[2018-05-07] MEDS: LISINOPRIL 5 MG TAB PO SCH ×2 (07:56→20:34)
[2018-05-07] MEDS: NYSTATIN 100,000 UNIT/GM POWD 15 GM TOPICAL SCH ×2 (07:56→20:34)
[2018-05-07] MEDS: METOPROLOL TARTRATE 25 MG TAB PO SCH ×2 (07:56→20:34)
[2018-05-07] MEDS: IPRATROPIUM-ALBUTEROL 3 ML NEB INHALATION SCH ×4 (08:11→20:27)
--- NOTE | 2018-05-07 08:56 | XR ---
EXAMINATION TYPE: XR chest 2V DATE OF EXAM: 05/07/2018 COMPARISON: 05/03/2018 TECHNIQUE: PA and lateral views submitted. HISTORY: Shortness of breath FINDINGS: Cardiomegaly is stable. Hypertrophic and degenerative change of the spine noted. Small right pleural effusion is seen. Mild central interstitial prominence. No pneumothorax. Arthropathy shoulders. IMPRESSION: 1. Cardiomegaly with small right effusion. Correlate clinically to exclude mild central venous conges tion.
--- NOTE | 2018-05-07 10:56 | P.PN ---
Subjective Progress Note Date: 05/07/18 This is a pleasant 57-year-old gentleman with known history of hypertension, hyperlipidemia, obesity, COPD, nicotine dependence, paroxysmal atrial fibrillation with prior cardioversion and EP studies, states that he had been on xarelto in the past but because of GI bleeding he stopped taking it. Patient does not follow in our office, however from previous records it appears that he used to see Dr. ROBYN Lou in the past. Patient was just recently in the hospital, discharged on the . He was admitted on that occasion with severe bleeding from his varicose veins, large venous ulcers, positive blood cultures for MSSA. According to the patient, he has not been taking his Lasix for quite some time at home because he could not afford it, has been putting on swelling in his entire body. Patient does state that he has been more short of breath than usual. Chest x-ray on admission here shows mild cardiomegaly with small pleural effusions increase as compared with prior. EKG shows atrial fibrillation with moderately rapid ventricular response. Blood pressure 122/70 with a heart rate in the 70s, 95% on room air. White blood cell count 6.3, hemoglobin 7.8, platelet count 400. Sodium 140, potassium 4.5, BUN 19, creatinine 1.0. BNP level 5000, troponins 0.057, 0.061, 0.052. Patient's hemoglobin on this recent admission was in the 7 range, last year his hemoglobin was 15.2. He states last time he had a colonoscopy was approximately 7 years ago. 05/05/2018 Patient was seen and examined this morning, he is feeling better overall. His weight today is down 3 kg, the edema in his lower extremities has improved significantly. He continues to be in atrial fibrillation, his rate is under adequate control. Hemoglobin today is 7.8. Creatinine today is 1.0. 05/06/2018 Patient seen and examined today, still having some orthopnea but overall states he is feeling better. Continues to diurese well, weight is down 2 kg today. We will add Aldactone to his medication regime repeat chest x-ray tomorrow and continue IV Lasix. BUN 27 and creatinine 1.1. 05/07/2018 Patient seen and examined today, weight is down 3 kg. Sodium 139, potassium 4.1 , BUN 26, creatinine 1.1. Chest x-ray shows cardiomegaly with small right effusion. Objective - Vital Signs Vital signs: Vital Signs Temp 96.8 F L 05/07/18 07:54 Pulse 85 05/07/18 07:54 Resp 17 05/07/18 08:00 BP 103/62 05/07/18 07:54 Pulse Ox 97 05/07/18 07:54 Intake & Output 05/06/18 05/07/18 05/07/18 18:59 06:59 18:59 Intake Total 960 240 180 Balance 960 240 180 Weight 148.1 kg Intake: Oral 960 240 180 Other: Voiding Method Toilet Toilet Toilet Urinal Urinal # Voids 3 2 - Exam PHYSICAL EXAMINATION: GENERAL: 57 year old gentleman in no acute distress at the time of my examination HEENT: Head is atraumatic, normocephalic. Pupils equal, round. Sclera anicteric. Conjunctiva are clear. Mucous membranes of the mouth are moist. Neck is supple. Unable to assess for elevated jugular venous pressure. No carotid bruit is heard. HEART EXAMINATION: Heart S1, S2 normal. No murmur or gallop heard. CHEST EXAMINATION: Lungs are clear to auscultation and precussion. No chest wall tenderness is noted on palpation or with deep breathing. ABDOMEN: Soft, obese, nontender. Bowel sounds are heard. No organomegaly noted. EXTREMITIES:[ 1+ peripheral pulses with 1+ evidence of peripheral edema, evidence of chronic venous stasis and discoloration of the skin. Bilateral Kehinde wraps in place. Positive open ulcerated areas, dressings in place. NEUROLOGIC patient is awake, alert and oriented X3. . - Labs CBC & Chem 7: 05/03/18 15:52 05/07/18 05:51 Labs: Abnormal Lab Results - Last 24 Hours (Table) 05/07/18 Range/Units 05:51 BUN 26 H (9-20) mg/dL Assessment and Plan Plan: Assessment and plan #1 systolic congestive heart failure acute on chronic #2 significant generalized in the lower extremities and scrotal area #3 hypertension #4 COPD #5 nicotine dependence #6 chronic persistent atrial fibrillation, not on anticoagulation because of history of GI bleed on Xarelto #7 morbid obesity #8 positive ulcerations to the lower extremity with evidence of MSSA #9 history of noncompliance #10 anemia, hemoglobin 7.8. #11 abnormal troponins, not consistent with acute coronary syndrome, likely secondary to supply and demand mismatch. Plan Patient had an echocardiogram with Doppler study performed earlier this month which revealed an ejection fraction of 45-50%. We will not repeat an echo on this admission. We'll continue current dose of IV Lasix, continue to monitor intake and output along with daily weights and daily lytes BUN and creatinine. DNP note has been reviewed, I agree with a documented findings and plan of care. Patient was seen and examined.
[2018-05-07] MEDS: ACETAMINOPHEN TAB 500 MG TAB PO PRN (11:47)
--- NOTE | 2018-05-07 22:33 | PN ---
PROGRESS NOTE DATE OF SERVICE: 05/07/2018 REASON FOR FOLLOWUP: 1. Left leg venostasis ulcer. 2. Athlete's foot. INTERVAL HISTORY: The patient is currently afebrile. He seems to be breathing more comfortably. His swelling on the scrotal and abdominal area has decreased. Denies having any chest pain, shortness of breath or cough. No abdominal pain. No pain to the left leg area. PHYSICAL EXAMINATION: Blood pressure 119/56, pulse of 84, temperature 97.4. He is 98% on room air. General description is a middle-aged male up in the room in no distress. RESPIRATORY SYSTEM: Unlabored breathing with decreased intensity of breath sounds. No wheeze. HEART: S1, S2. Regular rate and rhythm. ABDOMEN: Soft. No tenderness. Left leg wound is currently dressed up. No obvious drainage on the dressing. LABS: BUN of 26, creatinine 1.18. DIAGNOSTIC IMPRESSION AND PLAN: 1. Patient with acute left leg venostasis ulcer with no evidence of any cellulitis. To continue local wound care with Aquacel Silver followed by Kehinde wrap for compression. 2. Athlete's foot. Local care with nystatin powder. MMODL / IJN: [id number] /
--- NOTE | 2018-05-07 22:57 | PN ---
PROGRESS NOTE DATE OF SERVICE: 05/07/2018 PRESENTING COMPLAINT: Short of breath. INTERVAL HISTORY: This is a patient who because of insurance reasons could not take his medications, presented with uncontrolled CHF and atrial fibrillation. Breathing is getting better. Remains on IV Lasix. Diuresing well. Kehinde wrap on the lower extremity. Tolerating his diet well. REVIEW OF SYSTEMS: Done for constitutional, cardiovascular, GI, pulmonary; relevant findings as above. CURRENT MEDICATIONS: Reviewed. They include IV Lasix. PHYSICAL EXAMINATION: Temperature 97.4, pulse 84, respiration 16, blood pressure 119/56 pulse ox 98% on room air. GENERAL APPEARANCE: Sitting up, comfortable. EYES: Pupils equal. Conjunctivae normal. HEENT: External appearance of nose and ears normal. Oral cavity normal. NECK: JVD not raised. Mass not palpable. RESPIRATORY: Effort normal. LUNGS: Diminished breath sounds. CARDIOVASCULAR: Heart sounds irregular. Decreased edema. ABDOMEN: Soft, non-tender. Liver and spleen not palpable. PSYCHIATRY: Alert and oriented x3. Mood and affect normal. INVESTIGATIONS: Chest x-ray shows minimal pulmonary edema. BUN 26, creatinine 1.18. ASSESSMENT: 1. Acute on chronic congestive heart failure exacerbation from systolic dysfunction, ejection fraction 40%, from hypertensive heart disease, much improved. 2. Hypertensive heart disease. 3. Secondary pulmonary hypertension from congestive heart failure. 4. Chronic obstructive pulmonary disease in a current smoker. 5. Persistent atrial fibrillation, rate uncontrolled on presentation, now better controlled. 6. Gastroesophageal reflux disease. 7. Primary osteoarthritis. 8. Morbid obesity with body mass index of 44. 9. Large venous ulcer on lower extremity, stable. 10.Varicosity in the lower extremity with recent bleeding. PLAN: Continue current medication and treatment plan. Patient is on IV Lasix. When okay with Cardiology, patient can be discharged. MMODL / IJN: [id number] /
[2018-05-08 06:17] LABS: Anisocytosis Slight; Basophils # (A) 0.1 k/uL (0-0.2); Basophils % (A) 1 %; Eosinophils # (A) 0.9 k/uL (0-0.7); Eosinophils % (A) 16 %; HCT 29.5 % (39.0-53.0); HGB 8.5 gm/dL (13.0-17.5); Hypochromasia Marked; Lymphocytes # (A) 1.3 k/uL (1.0-4.8); Lymphocytes % (A) 23 %; MCH 21.6 pg (25.0-35.0); MCHC 28.8 g/dL (31.0-37.0); Mean Platelet Volume 7.6; Microcytosis Moderate; Monocytes # (A) 0.5 k/uL (0-1.0); Monocytes % (A) 9 %; Neutrophils # (A) 2.6 k/uL (1.3-7.7); Neutrophils % (A) 48 %; Platelet Count 456 k/uL (150-450); Poikilocytosis Slight; RBC 3.93 m/uL (4.30-5.90); RDW 18.5 % (11.5-15.5); WBC 5.5 k/uL (3.8-10.6)
[2018-05-08 06:45] LABS: Calcium 8.9 mg/dL (8.4-10.2); Potassium 4.5 mmol/L (3.5-5.1)
[2018-05-08 07:39] VITALS: RESP 17
[2018-05-08] MEDS: METOPROLOL TARTRATE 25 MG TAB PO SCH (07:39)
[2018-05-08] MEDS: FUROSEMIDE 10 MG/ML 4 ML VIAL IV SCH (07:39)
[2018-05-08] MEDS: SPIRONOLACTONE 25 MG TAB PO SCH (07:39)
[2018-05-08] MEDS: LISINOPRIL 5 MG TAB PO SCH (07:40)
[2018-05-08] MEDS: NYSTATIN 100,000 UNIT/GM POWD 15 GM TOPICAL SCH (07:40)
[2018-05-08] MEDS: IPRATROPIUM-ALBUTEROL 3 ML NEB INHALATION SCH ×3 (07:50→16:30)
[2018-05-08 14:06] VITALS: BMI 39.7
--- NOTE | 2018-05-08 14:31 | PN ---
PROGRESS NOTE DATE OF SERVICE: 05/08/2018 REASON FOR FOLLOWUP: 1. Left leg venostasis ulcer. 2. Athlete's foot. INTERVAL HISTORY: The patient is currently afebrile. He is breathing comfortably. Denies having any chest pain or shortness of breath or cough. No abdominal pain. Only pain to the left leg area. PHYSICAL EXAMINATION: Blood pressure 117/70 with a pulse of 84, temperature is 98.7, he is 98% on room air. General description is a middle-aged male, lying in bed in no distress. RESPIRATORY SYSTEM: Unlabored breathing, clear to auscultation anteriorly. HEART: S1, S2. Regular rate and rhythm. ABDOMEN: Soft, no tenderness. Left leg wound with obvious drainage on the dressing. LABS: Hemoglobin 8.5, white count of 5.5, BUN of 31, creatinine is 4.25. DIAGNOSTIC IMPRESSION AND PLAN: 1. Patient with left leg venostasis ulcer with no evidence of any cellulitis. Recommend local wound care with Aquacel Silver dressing followed by Kehinde wrap to keep the swelling down. No need for systemic antibiotic therapy. 2. Bilateral feet Athlete's foot. Local care with nystatin powder. MMODL / IJN: [id number] /
--- NOTE | 2018-05-08 14:40 | PN ---
PROGRESS NOTE Mr. Corral is a 57-year-old male who presented with symptoms of significant dyspnea and peripheral edema. He is feeling much better at this time. His breathing is better. He denies any symptoms of chest pain. He has been able to ambulate. His energy and his breathing has been improving. He has a history of chronic persistent atrial fibrillation, not anticoagulated at this time because of episode of GI bleeding. He had a prior history of noncompliance. He had an echocardiogram earlier this month that revealed ejection fraction of 45%. He continues to be at this time on furosemide 40 mg IV q.12 hours, lisinopril 5 mg twice a day, metoprolol tartrate 25 mg twice a day, spironolactone 25 mg daily. PHYSICAL EXAMINATION: Blood pressure 117/70 with a heart rate in the 80s. LUNGS: Clear. HEART: Irregular, irregular. S1, S2. No S3 with a systolic murmur. ABDOMEN: Soft and nontender. EXTREMITIES: With 1+ edema with chronic skin changes, improved compared to yesterday. IMPRESSION: 1. Symptoms of congestive heart failure on the basis of diastolic dysfunction improving. 2. Atrial fibrillation, chronic, not anticoagulated because of recent gastrointestinal bleeding. 3. Anemia. 4. Prior history of noncompliance. 5. Obesity. 6. Lower extremities venous ulceration. RECOMMENDATION: From the cardiac standpoint, I will switch him to oral diuretic, increase his level of activity. If he remains stable, I expect he should be able to be discharged home soon and followed as an outpatient. The importance of compliance with the medication was discussed with him in detail. MMODL / IJN: [id number] /
[2018-05-08 15:32] VITALS: BP 110/59; PULSE 83; TEMP 97.2
[2018-05-08] MEDS: FUROSEMIDE 40 MG TAB PO SCH ×2 (16:10→16:11)
--- NOTE | 2018-05-09 05:31 | DS ---
DISCHARGE SUMMARY DATE OF ADMISSION: 05/03/2018 DATE OF DISCHARGE: 05/08/2018. FINAL DIAGNOSES: 1. Acute on chronic congestive heart failure exacerbation from systolic dysfunction, ejection fraction 40% from hypertensive heart disease. 2. Hypertensive heart disease. 3. Secondary pulmonary hypertension from congestive heart failure. 4. Chronic obstructive pulmonary disease in a current smoker. 5. Persistent atrial fibrillation, rate uncontrolled on presentation. 6. Gastroesophageal reflux disease. 7. Primary osteoarthritis. 8. Morbid obesity, BMI 44. 9. Large venous ulcer left lower extremity, stable, not infected. 10.Chronic varicosity in both lower extremities with recent bleeding. HOSPITAL COURSE: This patient was recently discharged from hospital when he presented with bleeding varicose veins. Did not have any insurance coverage because of Medicaid application problems. Never took his medication, presented yet again with CHF exacerbation. Given IV Lasix to which he responded well. The patient has a large venous ulcer on the left leg which is healing well. The patient is much better by the time of discharge, walking up and down to the bathroom. CONSULTATION: Dr. Potter, Infectious Disease, Dr. Cardoso from Cardiology, Dr. Chris Devine from vascular surgery. PHYSICAL EXAMINATION: Temperature 97.2, pulse 83, respiratory rate 17, blood pressure 110/59, pulse ox 98% on room air. Lungs fair entry. CARDIOVASCULAR: Heart sounds irregular. Decreased edema. Kehinde wrap lower extremity. INVESTIGATION: White count 5.5, hemoglobin 8.5, BUN 31, creatinine 1.25. DISCHARGE MEDICATIONS: 1. Tylenol 1000 mg q.6h p.r.n. 2. Lasix 40 mg p.o. b.i.d. 3. DuoNeb t.i.d. 4. Prinivil 10 mg q.h.s. 5. Lopressor 25 mg p.o. b.i.d. 6. Nystatin topical b.i.d. 7. Aldactone 25 mg a day. FOLLOWUP: With on May 22, [address] Casey Varner on 05/12/2018. [facility] BMP in 1 week. Aquacel silver dressing over wound and wrap it in Kehinde dressing. Change every [address] Varner. ADDENDUM: feed in worker lining caser was involved in discharge planning of this patient. MMODL / IJN: [id number] /
== END 2018-05-08 17:36 | disposition home or self-care (01) | DRG 292 ==
LOC: EC 14:29 → 3SCARD 17:46
PROVIDERS: ADMIT Hospitalist; ATTEND Hospitalist
DX: I11.0 Hypertensive heart disease with heart failure (principal); I48.1 Persistent atrial fibrillation; Z68.41 Body mass index [BMI] 40.0-44.9, adult; L97.929 Non-pressure chronic ulcer of unspecified part of left lower leg with unspecified severity; B35.3 Tinea pedis; E66.01 Morbid (severe) obesity due to excess calories; F17.210 Nicotine dependence, cigarettes, uncomplicated; I27.29 Other secondary pulmonary hypertension; I48.0 Paroxysmal atrial fibrillation; I48.2 Chronic atrial fibrillation; I50.23 Acute on chronic systolic (congestive) heart failure; I83.029 Varicose veins of left lower extremity with ulcer of unspecified site; J44.9 Chronic obstructive pulmonary disease, unspecified; K21.9 Gastro-esophageal reflux disease without esophagitis; M19.91 Primary osteoarthritis, unspecified site; Z79.899 Other long term (current) drug therapy; Z80.3 Family history of malignant neoplasm of breast; Z80.42 Family history of malignant neoplasm of prostate; Z80.43 Family history of malignant neoplasm of testis; Z82.49 Family history of ischemic heart disease and other diseases of the circulatory system; Z83.3 Family history of diabetes mellitus; Z86.19 Personal history of other infectious and parasitic diseases; Z91.19 Patient's noncompliance with other medical treatment and regimen; Z86.14 Personal history of Methicillin resistant Staphylococcus aureus infection
CPT/HCPCS: 36415; 71046; 76870; 80048; 80053; 81003; 83735; 83880; 84484; 85025; 85610; 85730; 93005; 93975; 94760; 96365; 96366; 96375; 96376; 99285

== ENCOUNTER → 2018-06-08 | Outpatient (CLI) | payer BC, OTHER ==
[2018-06-09 03:55] LABS: Anion Gap 5.6 mmol/L (4.00-12.00); Carbon Dioxide 26.4 mmol/L (21.6-31.8); Potassium 4.3 mmol/L (3.5-5.5)
== END | disposition home or self-care (01) ==
LOC: LABWHC1 15:18
PROVIDERS: ATTEND Hospitalist
DX: I95.9 Hypotension, unspecified (principal); E86.0 Dehydration; N17.9 Acute kidney failure, unspecified
CPT/HCPCS: 36415; 80048

== ENCOUNTER 2018-06-23 19:03 | Inpatient (IN) | payer OTHER ==
[2018-06-23 20:05] LABS: Anisocytosis Slight; Basophils # (A) 0.1 k/uL (0-0.2); Basophils % (A) 1 %; Eosinophils # (A) 0.5 k/uL (0-0.7); Eosinophils % (A) 7 %; HCT 37.9 % (39.0-53.0); HGB 11.2 gm/dL (13.0-17.5); Hypochromasia Marked; Lymphocytes # (A) 1.2 k/uL (1.0-4.8); Lymphocytes % (A) 19 %; MCH 20.8 pg (25.0-35.0); MCHC 29.6 g/dL (31.0-37.0); MCV 70.5 fL (80.0-100.0); Mean Platelet Volume 6.3; Microcytosis Marked; Monocytes # (A) 0.5 k/uL (0-1.0); Monocytes % (A) 8 %; Neutrophils % (A) 63 %; Platelet Count 317 k/uL (150-450); Poikilocytosis Slight; RBC 5.38 m/uL (4.30-5.90); RDW 19.3 % (11.5-15.5); WBC 6.3 k/uL (3.8-10.6)
[2018-06-23 20:12] LABS: Partial Thromboplastin Time 24.4 sec (22.0-30.0); Prothrombin Time 10.7 sec (9.0-12.0)
[2018-06-23 20:13] LABS: Albumin 4.1 g/dL (3.5-5.0); Calcium 9.8 mg/dL (8.4-10.2); Magnesium 1.8 mg/dL (1.6-2.3); Potassium 4.3 mmol/L (3.5-5.1); Total Bilirubin 0.7 mg/dL (0.2-1.3); Total Protein 7.2 g/dL (6.3-8.2)
[2018-06-23 20:15] LABS: Creatine Kinase 40 U/L (55-170)
[2018-06-23] MEDS ORDERED: SODIUM CHLORIDE 0.9% 500 ML 500 ML IV ONE (20:21)
[2018-06-23 20:27] LABS: Creatine Kinase MB 0.6 ng/mL (0.0-2.4); Troponin I <0.012 ng/mL (0.000-0.034)
[2018-06-23] MEDS ORDERED: SODIUM CHLORIDE 0.9% 1,000 ML IV SCH (20:30)
--- NOTE | 2018-06-23 20:36 | ED ---
General Adult HPI - General Chief complaint: Dizziness Stated complaint: Syncope Time Seen by Provider: 06/23/18 19:20 Source: patient, RN notes reviewed, old records reviewed Mode of arrival: wheelchair Limitations: no limitations - History of Present Illness Initial comments: 58-year-old male presenting with multiple episodes of near syncope and lightheadedness. Patient has history of A. fib, congestive heart failure, COPD and anemia. Currently not on anticoagulation secondary to history of a GI bleed. Denies chest pain. Denies worsening dyspnea. States he measured his blood pressure at home and it was quite low. He did see his business management manager today who recommended decreasing one of his blood pressure medications. Patient denies vomiting or diarrhea. States he has been eating and drinking normally. Denies fever or chills. - Related Data Home Medications Medication Instructions Recorded Confirmed Acetaminophen Tab [Tylenol] 1,000 mg PO Q6H PRN 11/29/16 06/23/18 Atorvastatin [Lipitor] 20 mg PO DAILY 06/03/18 06/23/18 Nystatin 100,000 Unit/gm Powd 1 gm TOPICAL BID PRN 06/03/18 06/23/18 [Mycostatin Powder] Spironolactone [Aldactone] 25 mg PO DAILY 06/03/18 06/23/18 Albuterol Inhaler [Ventolin Hfa 1 - 2 puff INHALATION RT-Q6H PRN 06/23/18 Inhaler] Lisinopril [Zestril] 10 mg PO DAILY 06/23/18 06/23/18 Loratadine [Claritin] 10 mg PO DAILY PRN 06/23/18 06/23/18 Previous Rx's Medication Instructions Recorded Metoprolol Tartrate [Lopressor] 25 mg PO BID #60 tab 05/08/18 Furosemide [Lasix] 20 mg PO DAILY #30 tab 06/05/18 Allergies Allergy/AdvReac Type Severity Reaction Status Date / Time No Known Allergies Allergy Verified 06/23/18 19:59 Review of Systems ROS Statement: Those systems with pertinent positive or pertinent negative responses have been documented in the HPI. ROS Other: All systems not noted in ROS Statement are negative. Past Medical History Past Medical History: Atrial Fibrillation, Atrial Flutter, Heart Failure, COPD, GI Bleed, Hypertension, Syncope Additional Past Medical History / Comment(s): hx Bilateral lower leg edema/ weeping with L leg worse-pt states he has had this problem for approximately 5 years and gotten worse past 2 years, chronic lower leg pain, lt lower ext wound goes to [facility] on mondays, paroxysmal A fib with RVR, lower GI bleed, states he has a "clot" behind his heart, vertigo. BACTEREMIA., History of Any Multi-Drug Resistant Organisms: MRSA Date of last positivie culture/infection: 6 YEARS AGO-treated in [facility] MDRO Source:: LEFT ABD Past Surgical History: Bowel Resection, EPS Additional Past Surgical History / Comment(s): Bowel resection d/t a fistula, colonoscopy, EPS and cardioversion, Past Anesthesia/Blood Transfusion Reactions: No Reported Reaction, Motion Sickness Past Psychological History: Anxiety, Depression Smoking Status: Current every day smoker Past Alcohol Use History: None Reported, Occasional Past Drug Use History: None Reported - Past Family History Mother Family Medical History: Cancer Additional Family Medical History / Comment(s): Mother had breast cancer. She is 84 yrs old. Father Family Medical History: Cancer, Chest Pain / Angina, Coronary Artery Disease ( CAD), Diabetes Mellitus, Hypertension Additional Family Medical History / Comment(s): Father had prostrate and testicular cancer. He at the age of 65yrs but pt not sure exact cause of because he had multiple health problems. General Exam Limitations: no limitations General appearance: alert, in no apparent distress Head exam: Present: atraumatic, normocephalic Eye exam: Present: normal appearance, PERRL ENT exam: Present: normal exam Neck exam: Present: normal inspection. Absent: tenderness, meningismus Respiratory exam: Present: normal lung sounds bilaterally. Absent: respiratory distress, wheezes, rales Cardiovascular Exam: Present: regular rate, irregular rhythm GI/Abdominal exam: Present: soft. Absent: distended, tenderness, guarding Extremities exam: Present: other (No significant edema in the lower extremity, both lower extremities wrapped fiorella boot) Neurological exam: Present: alert, oriented X3, CN II-XII intact. Absent: motor sensory deficit Psychiatric exam: Present: normal affect, normal mood Skin exam: Present: warm, dry, intact. Absent: cyanosis, diaphoretic Course Vital Signs 06/23/18 06/23/18 06/23/18 19:07 19:47 19:50 Temperature 97.6 F Pulse Rate 56 L 98 Respiratory 17 18 Rate Blood Pressure 77/45 O2 Sat by Pulse 98 99 99 Oximetry 06/23/18 06/23/18 06/23/18 20:10 20:20 20:30 Temperature Pulse Rate 110 H Respiratory 18 45 H 17 Rate Blood Pressure 75/57 O2 Sat by Pulse 98 100 98 Oximetry 06/23/18 06/23/18 06/23/18 20:40 20:50 21:00 Temperature Pulse Rate 99 101 H Respiratory 44 H 19 Rate Blood Pressure 79/54 O2 Sat by Pulse 97 98 Oximetry EKG Findings - EKG Comments: EKG Findings:: EKG EKG: Atrial fibrillation rate 99, QRS duration 100, QTC 479, no ST segment elevation or depression. Medical Decision Making - Medical Decision Making 58-year-old male presenting with hypotension lightheadedness. Blood pressure measured at 75 systolic. Laboratory studies were male normal CBC, patient has creatinine of 1.7, recent baseline 1.2. He is given gentle IV hydration as he has a history of congestive heart failure and reduced ejection fraction. Patient will be kept in observation, antihypertensive medications will be held, cardiology placed on consult. He will be admitted to monitored bed. Chest x-ray negative for any acute cardiopulmonary disease. Urinalysis pending. - Lab Data Result diagrams: 06/23/18 19:45 06/23/18 19:45 Lab Results 06/23/18 06/23/18 06/23/18 Range/Units 19:45 19:45 19:45 WBC 6.3 (3.8-10.6) k/uL RBC 5.38 (4.30-5.90) m/uL Hgb 11.2 L (13.0-17.5) gm/dL Hct 37.9 L (39.0-53.0) % MCV 70.5 L (80.0-100.0) fL MCH 20.8 L (25.0-35.0) pg MCHC 29.6 L (31.0-37.0) g/dL RDW 19.3 H (11.5-15.5) % Plt Count 317 (150-450) k/uL Neutrophils % 63 % Lymphocytes % 19 % Monocytes % 8 % Eosinophils % 7 % Basophils % 1 % Neutrophils # 4.0 (1.3-7.7) k/uL Lymphocytes # 1.2 (1.0-4.8) k/uL Monocytes # 0.5 (0-1.0) k/uL Eosinophils # 0.5 (0-0.7) k/uL Basophils # 0.1 (0-0.2) k/uL Hypochromasia Marked Poikilocytosis Slight Anisocytosis Slight Microcytosis Marked PT (9.0-12.0) sec INR (<1.2) APTT (22.0-30.0) sec Sodium (137-145) mmol/L Potassium (3.5-5.1) mmol/L Chloride (98-107) mmol/L Carbon Dioxide (22-30) mmol/L Anion Gap mmol/L BUN (9-20) mg/dL Creatinine (0.66-1.25) mg/dL Est GFR (CKD-EPI)AfAm (>60 ml/min/1.73 sqM) Est GFR (CKD-EPI)NonAf (>60 ml/min/1.73 sqM) Glucose (74-99) mg/dL Calcium (8.4-10.2) mg/dL Magnesium (1.6-2.3) mg/dL Total Bilirubin (0.2-1.3) mg/dL AST (17-59) U/L ALT (21-72) U/L Alkaline Phosphatase (38-126) U/L Total Creatine Kinase 40 L (55-170) U/L CK-MB (CK-2) 0.6 (0.0-2.4) ng/mL CK-MB (CK-2) Rel Index 1.5 Troponin I <0.012 (0.000-0.034) ng/mL NT-Pro-B Natriuret Pep 1790 pg/mL Total Protein (6.3-8.2) g/dL Albumin (3.5-5.0) g/dL 06/23/18 06/23/18 Range/Units 19:45 19:45 WBC (3.8-10.6) k/uL RBC (4.30-5.90) m/uL Hgb (13.0-17.5) gm/dL Hct (39.0-53.0) % MCV (80.0-100.0) fL MCH (25.0-35.0) pg MCHC (31.0-37.0) g/dL RDW (11.5-15.5) % Plt Count (150-450) k/uL Neutrophils % % Lymphocytes % % Monocytes % % Eosinophils % % Basophils % % Neutrophils # (1.3-7.7) k/uL Lymphocytes # (1.0-4.8) k/uL Monocytes # (0-1.0) k/uL Eosinophils # (0-0.7) k/uL Basophils # (0-0.2) k/uL Hypochromasia Poikilocytosis Anisocytosis Microcytosis PT 10.7 (9.0-12.0) sec INR 1.0 (<1.2) APTT 24.4 (22.0-30.0) sec Sodium 140 (137-145) mmol/L Potassium 4.3 (3.5-5.1) mmol/L Chloride 108 H (98-107) mmol/L Carbon Dioxide 21 L (22-30) mmol/L Anion Gap 11 mmol/L BUN 34 H (9-20) mg/dL Creatinine 1.87 H (0.66-1.25) mg/dL Est GFR (CKD-EPI)AfAm 45 (>60 ml/min/1.73 sqM) Est GFR (CKD-EPI)NonAf 39 (>60 ml/min/1.73 sqM) Glucose 144 H (74-99) mg/dL Calcium 9.8 (8.4-10.2) mg/dL Magnesium 1.8 (1.6-2.3) mg/dL Total Bilirubin 0.7 (0.2-1.3) mg/dL AST 35 (17-59) U/L ALT 20 L (21-72) U/L Alkaline Phosphatase 77 (38-126) U/L Total Creatine Kinase (55-170) U/L CK-MB (CK-2) (0.0-2.4) ng/mL CK-MB (CK-2) Rel Index Troponin I (0.000-0.034) ng/mL NT-Pro-B Natriuret Pep pg/mL Total Protein 7.2 (6.3-8.2) g/dL Albumin 4.1 (3.5-5.0) g/dL Disposition Clinical Impression: Syncope, Acute kidney injury, Hypotension Disposition: ADMITTED IP TO THIS HOSP Condition: Stable Is patient prescribed a controlled substance at d/c from ED?: No Referrals: Casey Varner MD [Primary Care Provider] - 1-2 days Time of Disposition: 21:06
[2018-06-23] MEDS ORDERED: NALOXONE 0.4 MG/ML 1 ML VIAL IV PRN (21:01)
--- NOTE | 2018-06-23 21:09 | XR ---
EXAMINATION: XR chest 2V DATE AND TIME: 06/23/2018 8:01 PM CLINICAL INDICATION: PHH; syncope TECHNIQUE: Departmental protocol COMPARISON: 06/03/2018 FINDINGS: The lungs are clear. The pleural spaces are negative. The cardiac silhouette is not enlarged. The remainder of the mediastinal silhouette is unremarkable. The skeletal structures and soft tissues are negative for acute findings. IMPRESSION: NO ACUTE PROCESS.
[2018-06-24 02:22] VITALS: BMI 36.8
[2018-06-24] MEDS ORDERED: METOPROLOL TARTRATE 25 MG TAB PO SCH (09:00)
--- NOTE | 2018-06-24 09:20 | P.CRDCN ---
History of Present Illness Consult date: 06/24/18 Requesting physician: Ramses Mccann Reason for Consult (text): hypotension Chief complaint: Dizziness, near syncope History of present illness: This is a pleasant 58-year-old gentleman with known history of hypertension, hyperlipidemia, obesity, COPD, nicotine dependence, paroxysmal atrial fibrillation with prior cardioversion and EP studies, he had been on xarelto in the past but because of GI bleed this had been discontinued. He has had recent admissions to the hospital with severe bleeding from his varicose veins, large venous ulcers and positive blood cultures for MSSA. According to the patient, the last 4 days or so he's been extremely dizzy to the point where he feels like he's going to pass out. 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 esteves on, yesterday who decreased one of his medications, in spite of that, patient had episodes where he was sure he would pass out if he didn't sit down. His blood pressures would go as low as 50 systolic. For these reasons she came to the emergency room for further evaluation. Blood pressure on arrival here 76/40, heart rate in the 90s, 98% on room air. Orthostatic blood pressures were obtained, lying 120/90, sitting 72/30, standing 59/40. White blood cell count 6.3, hemoglobin 11.2, platelet count 317. Sodium 140, potassium 4.3, BUN 34, creatinine 1.8. Mag 1.8. Troponin 0.012, BNP 1790. At the time of my examination this morning, patient is sitting up at his bedside, denies any dizziness at present. Past Medical History Past Medical History: Atrial Fibrillation, Atrial Flutter, Heart Failure, COPD, GI Bleed, Hypertension, Syncope, Vascular Disorder Additional Past Medical History / Comment(s): hx Bilateral lower leg edema/ weeping with L leg worse-pt states he has had this problem for approximately 5 years and gotten worse past 2 years, pt. supposed to have surgery on 06/26, chronic lower leg pain, lt lower ext wound goes to [facility] on mondays, paroxysmal A fib with RVR, lower GI bleed, states he has a "clot" behind his heart, vertigo. BACTEREMIA., History of Any Multi-Drug Resistant Organisms: MRSA Date of last positivie culture/infection: 6 YEARS AGO-treated in [facility] MDRO Source:: LEFT ABD Past Surgical History: Bowel Resection, EPS Additional Past Surgical History / Comment(s): Bowel resection d/t a fistula, colonoscopy, EPS and cardioversion, Past Anesthesia/Blood Transfusion Reactions: No Reported Reaction, Motion Sickness Smoking Status: Current every day smoker - Past Family History Mother Family Medical History: Cancer Additional Family Medical History / Comment(s): Mother had breast cancer. She is 84 yrs old. Father Family Medical History: Cancer, Chest Pain / Angina, Coronary Artery Disease ( CAD), Diabetes Mellitus, Hypertension Additional Family Medical History / Comment(s): Father had prostrate and testicular cancer. He at the age of 65yrs but pt not sure exact cause of because he had multiple health problems. Medications and Allergies Home Medications Medication Instructions Recorded Confirmed Type Acetaminophen Tab [Tylenol] 1,000 mg PO Q6H PRN 11/29/16 06/23/18 History Metoprolol Tartrate [Lopressor] 25 mg PO BID #60 tab 05/08/18 06/23/18 Rx Atorvastatin [Lipitor] 20 mg PO DAILY 06/03/18 06/23/18 History Nystatin 100,000 Unit/gm Powd 1 gm TOPICAL BID PRN 06/03/18 06/23/18 History [Mycostatin Powder] Spironolactone [Aldactone] 25 mg PO DAILY 06/03/18 06/23/18 History Furosemide [Lasix] 20 mg PO DAILY #30 tab 06/05/18 06/23/18 Rx Albuterol Inhaler [Ventolin Hfa 1 - 2 puff INHALATION RT-Q6H PRN 06/23/18 History Inhaler] Lisinopril [Zestril] 10 mg PO DAILY 06/23/18 06/23/18 History Loratadine [Claritin] 10 mg PO DAILY PRN 06/23/18 06/23/18 History Allergies Allergy/AdvReac Type Severity Reaction Status Date / Time No Known Allergies Allergy Verified 06/23/18 19:59 Physical Exam Vitals: Vital Signs Temp Pulse Pulse Pulse Pulse Pulse Resp 06/24/18 08:30 97.6 F 73 73 18 06/24/18 05:00 97.4 F L 80 19 06/24/18 01:05 98.2 F 78 18 06/24/18 01:00 98.2 F 78 19 06/24/18 00:50 98.1 F 92 18 06/23/18 23:32 91 06/23/18 23:15 76 16 06/23/18 23:00 19 06/23/18 22:07 109 H 101 H 97 19 06/23/18 21:26 98 06/23/18 21:00 101 H 19 06/23/18 20:50 06/23/18 20:40 99 44 H 06/23/18 20:30 17 06/23/18 20:20 45 H 06/23/18 20:10 110 H 18 06/23/18 19:50 98 18 06/23/18 19:47 06/23/18 19:07 97.6 F 56 L 17 BP BP BP BP Pulse Ox 06/24/18 08:30 83/65 98 06/24/18 05:00 112/71 99 06/24/18 01:05 115/59 94 L 06/24/18 01:00 115/59 94 L 06/24/18 00:50 104/64 98 18 23:32 90/56 06/23/18 23:15 120/86 06/23/18 23:00 06/23/18 22:07 59/40 120/98 72/34 06/23/18 21:26 06/23/18 21:00 79/54 98 06/23/18 20:50 97 18 20:40 06/23/18 20:30 75/57 98 06/23/18 20:20 100 06/23/18 20:10 98 06/23/18 19:50 77/45 99 18 19:47 99 06/23/18 19:07 98 Intake and Output 06/23/18 06/24/18 06/24/18 22:59 06:59 14:59 Intake Total 490 240 Balance 490 240 Intake: Intake, IV Titration 250 Amount Sodium Chloride 0.9% 1, 250 000 ml @ 50 mls/hr IV . Q20H COUNT INCLUDES THE [facility] Rx#:[id number] Oral 240 240 Other: Voiding Method Toilet # Voids 3 Weight 132.449 kg 133.5 kg PHYSICAL EXAMINATION: GENERAL: 57 year old gentleman in no acute distress at the time of my examination HEENT: Head is atraumatic, normocephalic. Pupils equal, round. Sclera anicteric. Conjunctiva are clear. Mucous membranes of the mouth are moist. Neck is supple. Unable to assess for elevated jugular venous pressure. No carotid bruit is heard. HEART EXAMINATION: Heart S1, S2 normal. No murmur or gallop heard. CHEST EXAMINATION: Lungs are clear to auscultation and precussion. No chest wall tenderness is noted on palpation or with deep breathing. ABDOMEN: Soft, obese, nontender. Bowel sounds are heard. No organomegaly noted. EXTREMITIES:[ 1+ peripheral pulses with 2+ evidence of peripheral edema, evidence of chronic venous stasis and discoloration of the skin. Positive open ulcerated areas, dressings in place. NEUROLOGIC patient is awake, alert and oriented X3. Results 06/23/18 19:45 06/23/18 19:45 Cardiac Enzymes 06/23/18 06/23/18 Range/Units 19:45 19:45 AST 35 (17-59) U/L CK-MB (CK-2) 0.6 (0.0-2.4) ng/mL Troponin I <0.012 (0.000-0.034) ng/mL Coagulation 06/23/18 Range/Units 19:45 PT 10.7 (9.0-12.0) sec APTT 24.4 (22.0-30.0) sec CBC 06/23/18 Range/Units 19:45 WBC 6.3 (3.8-10.6) k/uL RBC 5.38 (4.30-5.90) m/uL Hgb 11.2 L (13.0-17.5) gm/dL Hct 37.9 L (39.0-53.0) % Plt Count 317 (150-450) k/uL Comprehensive Metabolic Panel 06/23/18 Range/Units 19:45 Sodium 140 (137-145) mmol/L Potassium 4.3 (3.5-5.1) mmol/L Chloride 108 H (98-107) mmol/L Carbon Dioxide 21 L (22-30) mmol/L BUN 34 H (9-20) mg/dL Creatinine 1.87 H (0.66-1.25) mg/dL Glucose 144 H (74-99) mg/dL Calcium 9.8 (8.4-10.2) mg/dL AST 35 (17-59) U/L ALT 20 L (21-72) U/L Alkaline Phosphatase 77 (38-126) U/L Total Protein 7.2 (6.3-8.2) g/dL Albumin 4.1 (3.5-5.0) g/dL Current Medications Generic Name Dose Route Start Last Admin Trade Name Freq PRN Reason Stop Dose Admin Sodium Chloride 1,000 mls @ 50 mls/hr 06/23/18 20:30 06/23/18 20:31 Saline 0.9% IV 50 mls/hr .Q20H YVETTE Administration Metoprolol Tartrate 25 mg 06/24/18 09:00 Lopressor PO BID YVETTE Naloxone HCl 0.2 mg 06/23/18 21:01 Narcan IV Q2M PRN Opioid Reversal Intake and Output 06/23/18 06/24/18 06/24/18 22:59 06:59 14:59 Intake Total 490 240 Balance 490 240 Intake: Intake, IV Titration 250 Amount Sodium Chloride 0.9% 1, 250 000 ml @ 50 mls/hr IV . Q20H YVETTE Rx#:[id number] Oral 240 240 Other: Voiding Method Toilet # Voids 3 Weight 132.449 kg 133.5 kg 06/23/18 19:45 06/23/18 19:45 EKG Interpretations (text) EKG shows atrial fibrillation with moderately rapid ventricular response. Assessment and Plan Plan: Assessment and plan #1 dizziness with near-syncope, hypotension noted. #2 chronic systolic congestive heart failure #3 hypertension history #4 COPD #5 nicotine dependence #6 chronic persistent atrial fibrillation, not on anticoagulation because of history of GI bleed on Xarelto #7 morbid obesity #8 positive ulcerations to the lower extremities with evidence of MSSA #9 history of noncompliance #10 anemia #11 mild renal insufficiency Plan We will obtain Dr. danielito chance's office note from the patient's visit with him yesterday. At this time we will hold the Lasix as well as the metoprolol and lisinopril, continue Lipitor. Continue to monitor orthostatic heart rate and blood pressure every shift. Continue to monitor for any significant tachycardia or bradycardia arrhythmias. Further recommendations to follow. DNP note has been reviewed, I agree with a documented findings and plan of care. Patient was seen and examined.
[2018-06-24 12:02] LABS: Appearance,Urine Clear (Clear); Bilirubin,Urine Negative (Negative); Blood,Urine Small (Negative); Color,Urine Yellow; Glucose,Urine (UA) Negative (Negative); Hyaline Casts,Urine 1 /lpf (0-2); Ketones,Urine Negative (Negative); Leukocyte Esterase,Urine Negative (Negative); Mucus,Urine Rare /hpf; Nitrite,Urine Negative (Negative); PH, Urine 5.5 (5.0-8.0); Protein,Urine Negative (Negative); RBC,Urine 18 /hpf (0-5); Specific Gravity,Urine 1.015 (1.001-1.035); Urobilinogen,Urine <2.0 mg/dL (<2.0); WBC,Urine 1 /hpf (0-5)
[2018-06-24] MEDS: MIDODRINE 5 MG TAB PO SCH ×2 (13:41→17:08)
[2018-06-24] MEDS ORDERED: SODIUM CHLORIDE 0.9% 1,000 ML IV SCH (15:15)
[2018-06-24] MEDS ORDERED: NYSTATIN 100,000 UNIT/GM POWD 15 GM TOPICAL PRN (20:06)
[2018-06-24] MEDS ORDERED: ACETAMINOPHEN TAB 500 MG TAB PO PRN (20:06)
[2018-06-24] MEDS: LACTATED RINGERS 1,000 ML IV SCH (21:35)
[2018-06-24] MEDS: ATORVASTATIN 20 MG TAB PO SCH (21:35)
[2018-06-24] MEDS: ENOXAPARIN 40 MG/0.4 ML SYRINGE SQ SCH (21:35)
--- NOTE | 2018-06-24 21:39 | HP ---
HISTORY AND PHYSICAL DATE OF SERVICE: 06/24/2018. PRESENTING COMPLAINT: Nearly passed out. HISTORY OF PRESENTING COMPLAINT: This is a very pleasant 58-year-old patient with extensive cardiac history. The patient does follow up with Dr. Varner. Chronic stable medical conditions include venous ulcer on the left lower extremity, COPD, persistent atrial fibrillation. The patient has had a couple of admissions with acute renal failure as he becomes a prerenal. Last admission was actually about 3 weeks ago. He was admitted with acute renal failure that did well. The patient yet again now presents with getting dizzy, lightheaded, feeling dry, nearly passing out, lightheaded and dizzy. He was found to be in acute renal failure, again creatinine bumping up. He was admitted, started on IV fluids. Diuretics were held. No chest pain or palpitations. REVIEW OF SYSTEMS: CONSTITUTIONAL: Weak and tired. HEENT: None. RESPIRATORY: None. CARDIOVASCULAR: As above. GASTROINTESTINAL: None. GENITOURINARY: None. MUSCULOSKELETAL: Some pain in joints. DERMATOLOGIC: Varicose veins, left lower extremity ulcer. HEMATOLOGICAL: None. LYMPHATIC: None. PSYCHIATRY: None. NEUROLOGIC: None. PAST MEDICAL HISTORY: Varicose veins, venous ulcer on the left lower extremity, CHF, EF 40%, hypertensive heart disease, secondary pulmonary hypertension, COPD, atrial fibrillation, not a candidate for anticoagulation, GERD, osteoarthritis, onychomycosis. PAST SURGICAL HISTORY: Bowel resection due to fistula, cardioversion. SOCIAL HISTORY: Lives alone. 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 She was drinking two fifth of whiskey on weekends and smoking half a pack a day for a long time; currently not anymore. FAMILY HISTORY: Mother had breast cancer. HOME MEDICATIONS: 1. Nystatin 1 g topically b.i.d. p.r.n. 2. Claritin 10 mg daily p.r.n. 3. Zestril 10 mg p.o. daily. 4. Ventolin 1 to 2 puffs every 6 hours p.r.n. 5. Aldactone 25 mg p.o. daily. 6. Lopressor 25 mg p.o. b.i.d. 7. Lasix 20 mg p.o. daily. 8. Lipitor 20 mg p.o. daily. ALLERGIES: None. PHYSICAL EXAMINATION: VITAL SIGNS: Vital signs on presentation, temperature 97.6, pulse 56, respirations 17, blood pressure 77/45, pulse ox 98% on room air. GENERAL APPEARANCE: Well built. BMI 36.8, sitting up, tired appearing. EYES: Pupils are equal. Conjunctivae normal. HEENT: External ears and nose normal. Oral cavity normal. NECK: JVD not raised. Mass not palpable. Respiratory effort normal. LUNGS: Fair air entry. CARDIOVASCULAR: Heart sounds irregular. Edema present. ABDOMEN: Soft, nontender. Liver and spleen not palpable. LYMPHATIC: No lymph nodes palpable in neck or axillae. PSYCHIATRY: Alert and oriented x3. Mood and affect normal. EXTREMITIES: Dressing on both the lower extremities with pressure wraps. INVESTIGATIONS: White count 6.3, hemoglobin 11.2, platelets 317, potassium 4.3, chloride 108, BUN 34, creatinine 1.87. The patient's BUN was 22 and creatinine 1.2 on 06/08/2018. The patient's EKG was reviewed by me, personally shows atrial fibrillation. Chest x-ray was personally reviewed by me, shows some cardiomegaly, no venous prominence. ASSESSMENT: 1. Acute severe renal failure, prerenal from diuresis. 2. Acute metabolic acidosis from renal failure. 3. Hypotension from volume status loss from diuresis. 4. Microcytic anemia. 5. Chronic congestive heart failure from systolic dysfunction, ejection fraction 40% from hypertensive heart disease. 6. Hypertensive heart disease. 7. Secondary pulmonary hypertension from chronic obstructive pulmonary disease. 8. Chronic obstructive pulmonary disease in an ex-smoker. 9. Gastroesophageal reflux disease. 10.Primary osteoarthritis. 11.Morbid obesity. 12.Chronic varicose veins and left lower extremity venous on cell with a pressure dressing in place. 13.Persistent atrial fibrillation, rate controlled. PLAN: Patient's diuretics have been held. Given IV fluids. The patient is feeling somewhat better. The patient is not a candidate for anticoagulation. Care was discussed with the patient. Questions were answered. Fluids have been dropped down. We will also change normal saline to lactated Ringer's in view of hyperchloremia and DVT prophylaxis. MMODL / IJN: [id number] /
[2018-06-25 06:19] LABS: Calcium 9.1 mg/dL (8.4-10.2); Potassium 4.6 mmol/L (3.5-5.1)
[2018-06-25] MEDS: MIDODRINE 5 MG TAB PO SCH ×3 (06:39→19:43)
[2018-06-25 09:43] VITALS: RESP 18
[2018-06-25] MEDS: SPIRONOLACTONE 25 MG TAB PO SCH (09:48)
[2018-06-25] MEDS: ATORVASTATIN 20 MG TAB PO SCH (09:48)
[2018-06-25] MEDS: LACTATED RINGERS 1,000 ML IV SCH (09:48)
[2018-06-25] MEDS: ENOXAPARIN 40 MG/0.4 ML SYRINGE SQ SCH (09:49)
--- NOTE | 2018-06-25 14:00 | P.PN ---
Subjective Progress Note Date: 06/25/18 This is a pleasant 58-year-old gentleman with known history of hypertension, hyperlipidemia, obesity, COPD, nicotine dependence, paroxysmal atrial fibrillation with prior cardioversion and EP studies, he had been on xarelto in the past but because of GI bleed this had been discontinued. He has had recent admissions to the hospital with severe bleeding from his varicose veins, large venous ulcers and positive blood cultures for MSSA. According to the patient, the last 4 days or so he's been extremely dizzy to the point where he feels like he's going to pass out. 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 esteves on, yesterday who decreased one of his medications, in spite of that, patient had episodes where he was sure he would pass out if he didn't sit down. His blood pressures would go as low as 50 systolic. For these reasons she came to the emergency room for further evaluation. Blood pressure on arrival here 76/40, heart rate in the 90s, 98% on room air. Orthostatic blood pressures were obtained, lying 120/90, sitting 72/30, standing 59/40. White blood cell count 6.3, hemoglobin 11.2, platelet count 317. Sodium 140, potassium 4.3, BUN 34, creatinine 1.8. Mag 1.8. Troponin 0.012, BNP 1790. At the time of my examination this morning, patient is sitting up at his bedside, denies any dizziness at present. 06/25/2018 Patient seen and examined this morning, no further orthostatics documented and he feels so much better overall. We will resume his MILLIE inhibitor at 5 mg daily to be given in the evening, resume beta georges dose at 25 mg twice a day. Continue Aldactone 25 mg daily and continue to hold Lasix. We will also continue his dose of midodrine with the anticipation that this may be discontinued as an outpatient. Follow-up appointment with Dr. Cardoso in the office. Objective - Vital Signs Vital signs: Vital Signs Temp 97.0 F L 06/25/18 11:35 Pulse 71 06/25/18 11:35 Resp 18 06/25/18 11:35 BP 120/79 06/25/18 11:35 Pulse Ox 97 06/25/18 11:35 Intake & Output 06/24/18 06/25/1806/25/18 18:59 06:59 18:59 Intake Total 720 600 660 Output Total 200 450 Balance 520 150 660 Weight 134 kg Intake: Oral 720 600 660 Output: Urine 200 450 Other: Voiding Method Toilet # Voids 1 3 - Exam PHYSICAL EXAMINATION: GENERAL: 57 year old gentleman in no acute distress at the time of my examination HEENT: Head is atraumatic, normocephalic. Pupils equal, round. Sclera anicteric. Conjunctiva are clear. Mucous membranes of the mouth are moist. Neck is supple. Unable to assess for elevated jugular venous pressure. No carotid bruit is heard. HEART EXAMINATION: Heart S1, S2 normal. No murmur or gallop heard. CHEST EXAMINATION: Lungs are clear to auscultation and precussion. No chest wall tenderness is noted on palpation or with deep breathing. ABDOMEN: Soft, obese, nontender. Bowel sounds are heard. No organomegaly noted. EXTREMITIES:[ 1+ peripheral pulses with 2+ evidence of peripheral edema, evidence of chronic venous stasis and discoloration of the skin. Positive open ulcerated areas, dressings in place. NEUROLOGIC patient is awake, alert and oriented X3. - Labs CBC & Chem 7: 06/23/18 19:45 06/25/18 05:46 Labs: Abnormal Lab Results - Last 24 Hours (Table) 06/25/18 Range/Units 05:46 Chloride 109 H (98-107) mmol/L BUN 32 H (9-20) mg/dL Creatinine 1.28 H (0.66-1.25) mg/dL Glucose 101 H (74-99) mg/dL Assessment and Plan Plan: Assessment and plan #1 dizziness with near-syncope, hypotension noted. #2 chronic systolic congestive heart failure #3 hypertension history #4 COPD #5 nicotine dependence #6 chronic persistent atrial fibrillation, not on anticoagulation because of history of GI bleed on Xarelto #7 morbid obesity #8 positive ulcerations to the lower extremities with evidence of MSSA #9 history of noncompliance #10 anemia #11 mild renal insufficiency Plan We will resume the lisinopril at 5 mg to be given at at bedtime, resume home dose of beta georges, continue Aldactone, continue to hold Lasix. Continue midodrine with the anticipation of it being discontinued as an outpatient. Follow-up appointment with Dr. Cardoso in the office. DNP note has been reviewed, I agree with a documented findings and plan of care. Patient was seen and examined.
[2018-06-25] MEDS: METOPROLOL TARTRATE 25 MG TAB PO SCH (19:47)
--- NOTE | 2018-06-26 00:07 | PN ---
PROGRESS NOTE DATE OF SERVICE: June 25, 2018. PRESENTING COMPLAINT: Near syncope. INTERVAL HISTORY: This patient presented with near syncope from acute severe renal failure. Doing much better. Getting IV fluids. Seen earlier by Cardiology. The home medications were resumed. The patient is feeling better, tolerating a diet. REVIEW OF SYSTEMS: Done for constitutional, cardiovascular, GI, pulmonary; relevant findings as above. CURRENT MEDICATIONS: Reviewed that include Lipitor, Lovenox, Zestril, Lopressor and Aldactone. PHYSICAL EXAMINATION: VITAL SIGNS: Temperature 97.8, pulse 76, respiratory 18, blood pressure 133/81, pulse ox 97% on room air. GENERAL APPEARANCE: Sitting up, comfortable. EYES: Pupils equal. Conjunctivae normal. NECK: JVD not raised. Mass not palpable. RESPIRATORY: Effort normal. LUNGS are clear. CARDIOVASCULAR: Heart sounds irregular. Some edema present. ABDOMEN: Soft, nontender. Liver and spleen not palpable. PSYCHIATRY: Alert and oriented x3. Mood and affect normal. INVESTIGATIONS: Potassium 4.6, BUN 32, creatinine 1.28. ASSESSMENT: 1. Acute severe renal failure prerenal from dialysis, improving with hydration. 2. Acute metabolic acidosis from renal failure improving. 3. Hypotension from volume loss from dialysis, improving. 4. Microcytic anemia. 5. Chronic congestive heart failure from systolic dysfunction, ejection fraction 40% from hypertensive heart disease. 6. Hypertensive heart disease. 7. Secondary pulmonary hypertension from chronic obstructive pulmonary disease. 8. Chronic obstructive pulmonary disease in an ex-smoker. 9. Gastroesophageal reflux disease. 10.Primary osteoarthritis. 11.Morbid obesity. 12.Chronic varicose veins and left lower extremity venous ulcer with a pressure dressing in place. 13.Persistent atrial fibrillation, rate controlled. PLAN: Continue current medication and treatment plan. We will see how the patient's electrolytes are in the morning and his overall fluid status. If does well, he could then probably be discharged. MMODL / IJN: [id number] /
[2018-06-26] MEDS: LACTATED RINGERS 1,000 ML IV SCH ×2 (00:25→11:51)
[2018-06-26] MEDS: MIDODRINE 5 MG TAB PO SCH ×3 (06:22→17:14)
[2018-06-26 06:54] LABS: Calcium 9.2 mg/dL (8.4-10.2); Potassium 4.7 mmol/L (3.5-5.1)
[2018-06-26] MEDS: SPIRONOLACTONE 25 MG TAB PO SCH (09:47)
[2018-06-26] MEDS: ATORVASTATIN 20 MG TAB PO SCH (09:47)
[2018-06-26] MEDS: METOPROLOL TARTRATE 25 MG TAB PO SCH (09:47)
[2018-06-26] MEDS: ENOXAPARIN 40 MG/0.4 ML SYRINGE SQ SCH (09:48)
[2018-06-26 16:26] VITALS: BP 127/70; PULSE 71; TEMP 98.1
--- NOTE | 2018-06-26 17:11 | PN ---
PROGRESS NOTE Mr. Corral is looking much better today. This gentleman came in with severe dehydration. He also has chronic atrial fibrillation and Coumadin is contraindicated. He is feeling much better today. There are no orthostatic changes. I have resumed a small dose of beta georges and also Lopressor. Vitals are stable. S1-S2 heard normally. There is no orthostatic change. Lungs reveal decent air entry. Irregular rhythm noted. Abdomen and lower extremity exam unchanged. Plan is to increase activity, and he can go home on current medical regimen and follow up with Dr. Cardoso in 2 weeks. Patient's symptoms have resolved. His orthostatic changes have improved remarkably and his rate control is optimal. MMODL / IJN: [id number] /
[2018-06-26] MEDS ORDERED: LISINOPRIL 5 MG TAB PO SCH (20:00)
--- NOTE | 2018-07-01 10:28 | DS ---
DISCHARGE SUMMARY DATE OF ADMISSION: June 23, 2018. DATE OF DISCHARGE: June 26, 2018. FINAL DIAGNOSES: 1. Acute severe renal failure prerenal from diuretics, improved with hydration. 2. Acute metabolic acidosis from renal failure. 3. Hypotension from volume loss from diuresis. 4. Microcytic anemia. 5. Chronic congestive heart failure from systolic dysfunction, ejection fraction 40% from hypertensive heart disease. 6. Secondary pulmonary hypertension from chronic chronic obstructive pulmonary disease. 7. Chronic obstructive pulmonary disease in an ex-smoker. 8. Gastroesophageal reflux disease. 9. Primary osteoarthritis. 10.Morbid obesity. 11.Chronic varicose veins, left lower extremity venous ulcer with a pressure dressing in place, being followed by Dr. Devine. 12.Persistent atrial fibrillation, rate controlled. HOSPITAL COURSE: This patient presented with syncope, hypotension, volume loss, found to be in acute renal failure. Creatinine was 1.87. Did come down with hydration to 1.21. Medications adjusted, doing well. Patient due to follow up Dr. Devine for vein treatment of lower extremities. PHYSICAL EXAMINATION: Temperature 98.1, pulse 71, respirations 16, blood pressure 127/70, pulse ox 98% on room air. Lungs fair entry. Kehinde wraps in the lower extremity. INVESTIGATIONS: BUN 27, creatinine 1.21. CONSULTATION: Dr. Randy Lou from Cardiology. DISCHARGE MEDICATIONS: 1. Tylenol 1000 mg q.6h p.r.n. 2. Lopressor 25 mg b.i.d. 3. Lipitor 20 mg p.o. daily. 4. Mycostatin powder topical 1 g b.i.d. p.r.n. 5. Aldactone 25 mg a day. 6. Ventolin HFA 1-2 puffs q.6h p.r.n. 7. Zestril 5 mg a day. 8. Midodrine 2.5 mg p.o. a.c. t.i.d. Follow up with Dr. Cardoso 07/08/18. Follow with Dr. Varner on 07/20/2018. Copy Dr. Varner. The patient is also to schedule his appointment with Dr[facility]. MMODL / IJN: [id number] /
== END 2018-06-26 17:45 | disposition home or self-care (01) | DRG 683 ==
LOC: EC 19:03 → 3SCARD 21:01
PROVIDERS: ADMIT Hospitalist; ATTEND Hospitalist
DX: N17.9 Acute kidney failure, unspecified (principal); E87.2 Acidosis; I48.1 Persistent atrial fibrillation; I50.22 Chronic systolic (congestive) heart failure; L97.829 Non-pressure chronic ulcer of other part of left lower leg with unspecified severity; L97.929 Non-pressure chronic ulcer of unspecified part of left lower leg with unspecified severity; D50.9 Iron deficiency anemia, unspecified; E66.01 Morbid (severe) obesity due to excess calories; Z68.37 Body mass index [BMI] 37.0-37.9, adult; E78.5 Hyperlipidemia, unspecified; E86.0 Dehydration; F17.210 Nicotine dependence, cigarettes, uncomplicated; I11.0 Hypertensive heart disease with heart failure; I27.29 Other secondary pulmonary hypertension; I48.0 Paroxysmal atrial fibrillation; I48.2 Chronic atrial fibrillation; I83.028 Varicose veins of left lower extremity with ulcer other part of lower leg; J44.9 Chronic obstructive pulmonary disease, unspecified; K21.9 Gastro-esophageal reflux disease without esophagitis; M19.91 Primary osteoarthritis, unspecified site; Z79.01 Long term (current) use of anticoagulants; Z79.899 Other long term (current) drug therapy; Z80.3 Family history of malignant neoplasm of breast; Z80.43 Family history of malignant neoplasm of testis; Z82.49 Family history of ischemic heart disease and other diseases of the circulatory system; Z83.3 Family history of diabetes mellitus; Z91.19 Patient's noncompliance with other medical treatment and regimen; I95.9 Hypotension, unspecified
CPT/HCPCS: 36415; 71046; 80048; 80053; 81001; 82550; 82553; 83735; 83880; 84484; 85025; 85610; 85730; 93005; 96360; 96361; 99285

== ENCOUNTER → 2018-09-07 | Outpatient (CLI) | payer OTHER ==
[2018-09-07 13:14] LABS: Potassium 5.2 mmol/L (3.5-5.1)
[2018-09-07 13:31] LABS: RBC 5.44 m/uL (4.30-5.90); WBC 6.3 k/uL (3.8-10.6)
[2018-09-07 13:32] LABS: Anisocytosis Slight; HGB 12.2 gm/dL (13.0-17.5); Hypochromasia Marked; MCH 22.5 pg (25.0-35.0); MCHC 29.8 g/dL (31.0-37.0); MCV 75.4 fL (80.0-100.0); Mean Platelet Volume 6.3; Microcytosis Moderate; Platelet Count 319 k/uL (150-450); RDW 19.8 % (11.5-15.5)
== END | disposition home or self-care (01) ==
LOC: LABPAT 12:00
PROVIDERS: ATTEND Internal Medicine Interventional Cardiology
DX: Z01.812 Encounter for preprocedural laboratory examination (principal); R94.39 Abnormal result of other cardiovascular function study; I48.1 Persistent atrial fibrillation
CPT/HCPCS: 36415; 80051; 82565; 84520; 85027

== ENCOUNTER 2018-09-15 05:46 | Day surgery (SDC) | payer OTHER ==
[2018-09-08 16:40] VITALS: BMI 37.5
[2018-09-15] MEDS ORDERED: ASPIRIN 325 MG TAB PO STA (05:47)
[2018-09-15] MEDS ORDERED: ATORVASTATIN 80 MG TAB PO STA (05:47)
[2018-09-15] MEDS ORDERED: SODIUM CHLORIDE 0.9% 1,000 ML in EMPTY BAG 1 BAG IV ONE (05:47)
[2018-09-15] MEDS ORDERED: ALPRAZolam 0.25 MG TAB PO PRN (05:47)
[2018-09-15] MEDS ORDERED: ALPRAZolam 0.5 MG TAB PO PRN (05:47)
[2018-09-15] MEDS ORDERED: NITROGLYCERIN SL TABS 0.4 MG TAB SUBLINGUAL PRN (05:47)
[2018-09-15 06:19] VITALS: TEMP 98
[2018-09-15] MEDS ORDERED: LIDOCAINE 1% INJ 10MG/ML (20 ML MDV) ONE (07:23)
[2018-09-15] MEDS ORDERED: HEPARIN SODIUM 1,000 UN/ML (10ML VL) ONE (07:23)
[2018-09-15] MEDS ORDERED: VERAPAMIL 2.5 MG/ML 2 ML AMP ONE (07:23)
[2018-09-15] MEDS ORDERED: fentaNYL (PF) 50 MCG/ML 2 ML AMP ONE (07:23)
[2018-09-15] MEDS ORDERED: fentaNYL (PF) 50 MCG/ML 2 ML AMP IVP ONE (07:54)
[2018-09-15] MEDS ORDERED: MIDAZOLAM 2 MG/2 ML VIAL IVP ONE (08:00)
[2018-09-15] MEDS ORDERED: HEPARIN SODIUM 1,000 UN/ML (10ML VL) IV ONE (08:10)
[2018-09-15] MEDS ORDERED: IOPAMIDOL-370 125ML BTL INJ ONE (08:15)
[2018-09-15] MEDS ORDERED: RX INFO: IV CONTRAST WAS GIVEN 1 EACH MISC MISCELLANE PRN (08:34)
[2018-09-15] MEDS ORDERED: IBUPROFEN 600 MG TAB PO PRN (08:35)
[2018-09-15] MEDS ORDERED: ACETAMINOPHEN TAB 325 MG TAB PO PRN (08:35)
[2018-09-15] MEDS ORDERED: SODIUM CHLORIDE 0.9% 1,000 ML IV SCH (08:45)
--- NOTE | 2018-09-15 08:46 | CC ---
CARDIAC CATHETERIZATION REPORT Mr. Corral is a 58-year-old male with known history of hypertension, chronic tobacco use, persistent atrial fibrillation, who recently had symptoms of dyspnea and abnormal myocardial perfusion imaging. In view of that, recommendation was made regarding cardiac catheterization. The procedure as well as the risks and complications were discussed with the patient who is in full understanding and agreement. PROCEDURE: Patient was brought to the laborer pipelines in a fasting semi-sedated state after receiving fentanyl and Benadryl and achieving moderate conscious sedated state. Using Xylocaine anesthesia in the Seldinger technique, a 6-Anguillan sheath was introduced in the right radial artery. Selective right and left angiography was performed using 5-Anguillan 3.5 bend right and left Altagracia catheter. Multiple views of the coronary artery including hemiaxial views were obtained. Following that a 5-Anguillan tight pigtail catheter was introduced in the left ventricle and pressures were calculated. Following that, catheter and sheaths were removed. Hemostasis was obtained and deployment of a TR band. There was no immediate complication. The patient was returned to his room in stable condition. FINDINGS: FLUOROSCOPY: There was significant mitral anulus calcification. LEFT MAIN: This is a large-sized vessel, bifurcating into LAD and left circumflex. Left main coronary artery has a 20% plaque without any evidence of high-grade stenosis. LEFT ANTERIOR DESCENDING ARTERY: This is a large-sized vessel tapers down in the distal third gives rise to a large proximal diagonal branch. The LAD and its branches have no evidence of obstructive coronary artery disease. LEFT CIRCUMFLEX: This is a nondominant vessel giving rise to 2 obtuse marginal branches. The left circumflex as well as branches have no evidence of obstructive coronary artery disease. RIGHT CORONARY ARTERY: This is a large dominant vessel bifurcating distally PDA and posterolateral segment and branches. The right coronary artery proximally has a 20% plaque. The rest of the vessel has no high-grade stenosis. LEFT VENTRICULOGRAM: Left ventriculogram was not performed. HEMODYNAMICS: There was no gradient across the aortic valve. The left ventricular end- diastolic pressure was 10 to 12 mmHg. CONCLUSION: 1. Mild obstructive disease involving the left main and the right coronary artery. 2. Normal left ventricular size and systolic function. RECOMMENDATION: In view of finding anatomy, I recommend continue medical therapy with aggressive coronary risk modifications that have been initiated. Those findings and recommendations were discussed with the patient. He is in full understanding and agreement. Duration of procedure is 16 minutes. MMODL / IJN: [id number] /
[2018-09-15] MEDS ORDERED: ATORVASTATIN 20 MG TAB PO SCH (09:00)
[2018-09-15] MEDS ORDERED: SPIRONOLACTONE 25 MG TAB PO SCH (09:00)
[2018-09-15] MEDS ORDERED: METOPROLOL TARTRATE 25 MG TAB PO SCH (09:00)
[2018-09-15 09:56] VITALS: RESP 16
[2018-09-15 13:22] VITALS: BP 128/72; PULSE 62
[2018-09-15] MEDS ORDERED: LISINOPRIL 10 MG TAB PO SCH (21:00)
== END 2018-09-15 13:27 | disposition home or self-care (01) ==
LOC: CATHCVL 05:46
PROVIDERS: ATTEND Internal Medicine Interventional Cardiology
DX: I25.10 Atherosclerotic heart disease of native coronary artery without angina pectoris (principal); R94.39 Abnormal result of other cardiovascular function study; I48.2 Chronic atrial fibrillation; I11.0 Hypertensive heart disease with heart failure; I50.22 Chronic systolic (congestive) heart failure; I42.9 Cardiomyopathy, unspecified; F17.210 Nicotine dependence, cigarettes, uncomplicated; I87.2 Venous insufficiency (chronic) (peripheral); R55 Syncope and collapse; Z79.899 Other long term (current) drug therapy
CPT/HCPCS: 93458; 84132; C1894; C1769; J2250; J3010; J1644; Q9967

== ENCOUNTER 2019-04-01 10:28 | Day surgery (SDC) | payer OTHER ==
[2019-03-30 12:35] VITALS: BMI 37.5
[~2019-04-01 10:28] MED LIST: LACTATED RINGERS 1,000 ML IV SCH; LIDOCAINE 1% 20 ML VIAL (10MG/ML) FOR IV START INTRADERMA PRN
[2019-04-01 10:46] VITALS: RESP 16; TEMP 97.4
[2019-04-01] MEDS ORDERED: PROPOFOL 10 MG/ML 20 ML VIAL IV ONE (12:05)
[2019-04-01] MEDS ORDERED: LIDOCAINE 1% INJ 10MG/ML (20 ML MDV) ONE (12:05)
[2019-04-01] MEDS ORDERED: fentaNYL (PF) 50 MCG/ML 2 ML AMP ONE (12:05)
[2019-04-01] MEDS ORDERED: MIDAZOLAM 2 MG/2 ML VIAL ONE (12:05)
--- NOTE | 2019-04-01 13:09 | P.PCN ---
Date of Procedure: 04/01/19 Description of Procedure: Brief history: Patient is a pleasant scheduled for an elective upper endoscopy as well as colonoscopy as a part of evaluation of anemia and rectal bleeding. Patient had been seen in clinic with complaints of intermittent rectal bleeding. Improved while of anticoagulation therapy. However when restarted on another no anticoagulant, Eliquis bleeding resumed. Procedure performed: Esophagogastroduodenoscopy with biopsy. Colonoscopy with polypectomy. Estimated blood loss: Minimal. Preoperative diagnosis: Anemia, rectal bleeding Anesthesia: [facility] Procedure: After informed consent was obtained from the patient was brought into the endoscopy unit and IV sedation was administered by anesthesia under continuous monitoring. Initially upper endoscopy was done. The Olympus GF 190 video endoscope was inserted inserted into the mouth and esophagus intubated without any difficulty and was gradually advanced into the stomach and duodenum and carefully examined. The bulb and second part of the duodenum appeared grossly normal, there was however erythema and nodularity suggestive of mild duodenitis noted and biopsied. The scope was then withdrawn into the stomach adequately insufflated with air and upon careful examination the antrum and body, cardia and fundus appeared grossly normal except for moderate erythema and nodularity throughout the entire examined stomach with biopsies of the antrum/body and cardia/fundus taken. The scope was then withdrawn into the esophagus. The GE junction was located at 42 cm to the incisors. It appeared regular with no erythema erosions or ulcerations. Rest of the esophagus appeared normal. Patient tolerated the procedure well. At this time the patient continued to remain sedation. Initial digital rectal examination was normal. Olympus CF 190 video colonoscope was then inserted into the rectum and gradually advanced to the cecum without any difficulty. Careful examination was performed as the scope was gradually being withdrawn. The prep was excellent. The cecum, ascending colon, transverse colon, descending colon, sigmoid colon and rectum appeared normal. Diminutive 1 mm IC valve polyp removed with cold forcep polypectomy. Small 5 mm ascending colon polyp removed with cold forcep polypectomy. Diminutive 2 mm descending colon polyp removed with cold forcep polypectomy. Mild left colonic diverticulosis. Retroflexion was performed in the rectum and no lesions were noted, mild internal hemorrhoids. Patient tolerated the procedure well. Impression: 1. Moderate gastritis, biopsies of the antrum/body and cardia/fundus. Mild duodenitis biopsied. 2. Cold forcep polypectomy of polyps in ascending colon, descending colon ileocecal valve. Mild sigmoid diverticulitis. Mild internal. Recommendations: Findings of this examination were discussed with the patient as well as his friend. Okay to resume diet. Await pathology from polypectomies. Would recommend repeat colonoscopy in 5 years pending pathology from appendectomy. Okay to resume anticoagulation.
[2019-04-01 13:29] VITALS: BP 105/71; PULSE 68
== END 2019-04-01 14:11 | disposition home or self-care (01) ==
LOC: ORWHC2ENDO 10:28
PROVIDERS: ATTEND Internal Medicine
DX: D12.2 Benign neoplasm of ascending colon (principal); D12.4 Benign neoplasm of descending colon; K29.50 Unspecified chronic gastritis without bleeding; D64.9 Anemia, unspecified; K29.80 Duodenitis without bleeding; K57.31 Diverticulosis of large intestine without perforation or abscess with bleeding; K57.33 Diverticulitis of large intestine without perforation or abscess with bleeding; K64.8 Other hemorrhoids; I10 Essential (primary) hypertension; J44.9 Chronic obstructive pulmonary disease, unspecified; Z79.899 Other long term (current) drug therapy; Z79.01 Long term (current) use of anticoagulants
CPT/HCPCS: 88305; 45380; 43239; J2250; J2001; J3010; J2704

== ENCOUNTER 2019-06-08 11:36 | Inpatient (IN) | payer OTHER ==
[2019-06-08] MEDS ORDERED: SODIUM CHLORIDE 0.9% 1,000 ML IV STA (12:06)
[2019-06-08] MEDS ORDERED: KETOROLAC 30 MG/ML 1 ML VIAL IVP STA (12:07)
--- NOTE | 2019-06-08 12:19 | ED ---
Skin/Abscess/FB HPI - General Source: patient Mode of arrival: ambulatory Limitations: no limitations <Massiel Watkins - Last Filed: 06/08/19 15:54> <Evelyn Meyer Eduarda - Last Filed: 06/14/19 21:56> - General Chief complaint: Skin/Abscess/Foreign Body Stated complaint: Abscess - History of Present Illness Initial comments: Patient is a 59-year-old male, with past medical history of A. fib on eliquis, atrial flutter, COPD, GI bleed, hypertension, vascular disorder, presenting to the emergency department with an abscess of his right upper leg that started draining about 4 days ago. Patient states for the past few weeks he noticed a small bump on his right upper leg but states it was not red or painful. Patient states 4 days ago the redness started and the area started to drain. Patient admits to an increase in pain and hardness around the area. Patient states he has never had anything like this before. Patient denies any fever or chills. Patient does admit to an increase in fatigue and sleeping more. Patient does not remember a cut or injury to the area. Patient denies any numbness and tingling into his right extremity. Patient has no other complaints at this time. Upon arrival to the ER, Patient is slightly tachycardia at 103, afebrile, respiratory rate 16, BP 147/100, O2 is 97% RA. (Massiel Watkins) - Related Data Home Medications Medication Instructions Recorded Confirmed Atorvastatin [Lipitor] 20 mg PO DAILY 06/03/18 06/08/19 Spironolactone [Aldactone] 25 mg PO DAILY 06/03/18 06/08/19 Lisinopril [Zestril] 10 mg PO HS 09/08/18 06/08/19 Apixaban [Eliquis] 2.5 mg PO BID 03/30/19 06/08/19 Acetaminophen Tab [Tylenol Tab] 1,000 mg PO Q6H PRN MDD see 06/08/19 06/08/19 comments Aspirin 325 - 975 mg PO Q6H PRN 06/08/19 06/08/19 Previous Rx's Medication Instructions Recorded Metoprolol Tartrate [Lopressor] 25 mg PO BID #60 tab 05/08/18 Allergies Allergy/AdvReac Type Severity Reaction Status Date / Time No Known Allergies Allergy Verified 06/08/19 16:13 Review of Systems ROS Other: All systems not noted in ROS Statement are negative. <Massiel Watkins Sujey - Last Filed: 06/08/19 15:54> ROS Other: All systems not noted in ROS Statement are negative. <Evelyn Meyer Eduarda - Last Filed: 06/14/19 21:56> ROS Statement: Those systems with pertinent positive or pertinent negative responses have been documented in the HPI. Past Medical History Past Medical History: Atrial Fibrillation, Atrial Flutter, COPD, GI Bleed, Hypertension, Vascular Disorder Additional Past Medical History / Comment(s): hx Bilateral lower leg edema- "retains water", History of Any Multi-Drug Resistant Organisms: MRSA Date of last positivie culture/infection: 8 YEARS AGO-treated in [facility] MDRO Source:: LEFT ABD Past Surgical History: Bowel Resection, EPS, Heart Catheterization Additional Past Surgical History / Comment(s): Bowel resection d/t a fistula, colonoscopy, EPS and cardioversion, Past Anesthesia/Blood Transfusion Reactions: No Reported Reaction Past Psychological History: Anxiety, Depression Smoking Status: Current every day smoker - Past Family History Mother Family Medical History: Cancer Additional Family Medical History / Comment(s): breast cancer. Father Family Medical History: Cancer Additional Family Medical History / Comment(s): . <JuneCharityMassiel L - Last Filed: 06/08/19 15:54> General Exam Limitations: no limitations <JuneMassiel Sujey - Last Filed: 06/08/19 15:54> - General Exam Comments Initial Comments: GENERAL: Slightly disheveled appearance and in no acute distress. HEAD: Atraumatic, normocephalic. EYES: Pupils equal round and reactive to light, extraocular movements intact, sclera anicteric, conjunctiva are normal. ENT: Nares patent, oropharynx clear without exudates. Moist mucous membranes. NECK: Normal range of motion, supple without lymphadenopathy or JVD. LUNGS: Breath sounds clear to auscultation bilaterally and equal. No wheezes rales or rhonchi. HEART: Regular rate and rhythm without murmurs, rubs or gallops. ABDOMEN: Soft, nontender, normoactive bowel sounds. No guarding, no rebound. No masses appreciated. : Deferred EXTREMITIES: Patient has a large area, approximately 13 cm in diameter, of erythema and induration on the medial aspect of the right upper leg with a central abscess noted that is slightly draining. The area is very hard to the touch and painful. Patient has full range of motion of his right hip and knee. NEUROLOGICAL: Normal speech, normal gait. PSYCH: Normal mood, normal affect. SKIN: Warm, Dry, normal turgor, no rashes or lesions noted. (Massiel Watkins) Course Vital Signs 06/08/19 06/08/19 06/08/19 11:37 13:58 15:51 Temperature 98.2 F Pulse Rate 103 H 92 91 Respiratory 16 18 18 Rate Blood Pressure 147/100 136/82 141/96 O2 Sat by Pulse 97 98 98 Oximetry 06/08/19 17:04 Temperature Pulse Rate 94 Respiratory 18 Rate Blood Pressure 137/83 O2 Sat by Pulse 97 Oximetry Procedures - Incision & Drainage Consent Obtained: verbal consent Indication: large abscess Site: lower extremity (Right upper thigh, medial aspect) Size (cm): 15 Anesthetic Used: lidocaine 1% Amount (mLs): 5 I&D Cleaning Method: Chloroprep Sterile Field Used?: Yes Scalpel Used: #15 Needle Aspiration Performed?: No Irrigation Performed?: No I&D Drainage Obtained: Pus, Blood Culture Obtained?: Yes Patient Tolerated Procedure: well <Massiel Watkins - Last Filed: 06/08/19 15:54> Medical Decision Making - Lab Data Result diagrams: 06/08/19 12:08 06/08/19 12:08 <Massiel Watkins - Last Filed: 06/08/19 15:54> - Lab Data Result diagrams: 06/13/19 07:44 06/13/19 07:44 <Evelyn Meyer - Last Filed: 06/14/19 21:56> - Medical Decision Making Patient is a 59-year-old male presenting with a large abscess of his right medial upper leg. Vital signs are stable. CT of the right upper leg shows a multi-locular abscess along the medial aspect of the mid to lower right thigh centered within the subcutaneous fat. There are a few abscesses measuring upwards of 14 cm. There is some surrounding cellulitis. No findings of a more aggressive deeper soft tissue infection at this time. Lab work shows slight leukocytosis at 12.3, ESR is 54, CRP is 82.4, lactic acid 1.8. Patient was started on fluids, vanco, Zosyn. I&D in middle of the abscess and a very large amount of fluid was drained. Culture was taken and is pending at this time. Patient will be admitted for IV antibiotics and surgical consult. Patient was accepted by Dr. Mccann. Surgery and ID will be consulted. Patient is in agreement with this plan of care. Case was discussed in detail with Dr. Meyer who agrees with this plan of care. (Massiel Watkins) I was available for consultation in the emergency department. The history and physical exam were done by the midlevel provider. I was consulted for this patients care. I reviewed the case with the midlevel provider and based on their presentation of the patient, I agree with the assessment, medical decision making and plan of care as documented. I evaluated the patient myself and agree to hospital admission. Chart was dictated using [employer] dictation software. Attempts were made to correct any dictation errors however some typographical errors may persist. (Evelyn Meyer) - Lab Data Lab Results 06/08/19 06/08/19 06/08/19 Range/Units 12:08 12:08 12:08 WBC 12.3 H (3.8-10.6) k/uL RBC 4.97 (4.30-5.90) m/uL Hgb 13.6 (13.0-17.5) gm/dL Hct 42.6 (39.0-53.0) % MCV 85.8 (80.0-100.0) fL MCH 27.3 (25.0-35.0) pg MCHC 31.8 (31.0-37.0) g/dL RDW 15.6 H (11.5-15.5) % Plt Count 389 (150-450) k/uL Neutrophils % 74 % Lymphocytes % 13 % Monocytes % 5 % Eosinophils % 5 % Basophils % 0 % Neutrophils # 9.1 H (1.3-7.7) k/uL Lymphocytes # 1.6 (1.0-4.8) k/uL Monocytes # 0.7 (0-1.0) k/uL Eosinophils # 0.6 (0-0.7) k/uL Basophils # 0.1 (0-0.2) k/uL Hypochromasia Slight ESR 54 H (0-15) mm/hr Sodium 139 (137-145) mmol/L Potassium 4.6 (3.5-5.1) mmol/L Chloride 107 (98-107) mmol/L Carbon Dioxide 23 (22-30) mmol/L Anion Gap 9 mmol/L BUN 19 (9-20) mg/dL Creatinine 0.99 (0.66-1.25) mg/dL Est GFR (CKD-EPI)AfAm >90 (>60 ml/min/1.73 sqM) Est GFR (CKD-EPI)NonAf 84 (>60 ml/min/1.73 sqM) Glucose 129 H (74-99) mg/dL Plasma Lactic Acid Luis 1.8 (0.7-2.0) mmol/L Calcium 8.7 (8.4-10.2) mg/dL Total Bilirubin 0.6 (0.2-1.3) mg/dL AST 27 (17-59) U/L ALT 21 (21-72) U/L Alkaline Phosphatase 123 (38-126) U/L C-Reactive Protein 82.4 H (<10.0) mg/L Total Protein 6.6 (6.3-8.2) g/dL Albumin 3.4 L (3.5-5.0) g/dL 06/10/19 06/10/19 Range/Units 09:20 09:20 WBC 9.3 (3.8-10.6) k/uL RBC 4.72 (4.30-5.90) m/uL Hgb 12.9 L (13.0-17.5) gm/dL Hct 41.1 (39.0-53.0) % MCV 87.1 (80.0-100.0) fL MCH 27.4 (25.0-35.0) pg MCHC 31.5 (31.0-37.0) g/dL RDW 15.6 H (11.5-15.5) % Plt Count 390 (150-450) k/uL Neutrophils % % Lymphocytes % % Monocytes % % Eosinophils % % Basophils % % Neutrophils # (1.3-7.7) k/uL Lymphocytes # (1.0-4.8) k/uL Monocytes # (0-1.0) k/uL Eosinophils # (0-0.7) k/uL Basophils # (0-0.2) k/uL Hypochromasia Moderate ESR (0-15) mm/hr Sodium 138 (137-145) mmol/L Potassium 4.3 (3.5-5.1) mmol/L Chloride 106 (98-107) mmol/L Carbon Dioxide 24 (22-30) mmol/L Anion Gap 8 mmol/L BUN 15 (9-20) mg/dL Creatinine 1.33 H (0.66-1.25) mg/dL Est GFR (CKD-EPI)AfAm 68 (>60 ml/min/1.73 sqM) Est GFR (CKD-EPI)NonAf 59 (>60 ml/min/1.73 sqM) Glucose 133 H (74-99) mg/dL Plasma Lactic Acid Luis (0.7-2.0) mmol/L Calcium 8.0 L (8.4-10.2) mg/dL Total Bilirubin (0.2-1.3) mg/dL AST (17-59) U/L ALT (21-72) U/L Alkaline Phosphatase (38-126) U/L C-Reactive Protein (<10.0) mg/L Total Protein (6.3-8.2) g/dL Albumin (3.5-5.0) g/dL Disposition Is patient prescribed a controlled substance at d/c from ED?: No Decision Date: 06/08/19 Decision Time: 15:28 <Massiel Watkins - Last Filed: 06/08/19 15:54> <Evelyn Meyer - Last Filed: 06/14/19 21:56> Clinical Impression: Abscess of right leg, Cellulitis of leg, right Disposition: ADMITTED IP TO THIS [facility] Condition: Stable
[2019-06-08 12:32] LABS: Basophils # (A) 0.1 k/uL (0-0.2); Basophils % (A) 0 %; Eosinophils # (A) 0.6 k/uL (0-0.7); Eosinophils % (A) 5 %; HCT 42.6 % (39.0-53.0); HGB 13.6 gm/dL (13.0-17.5); Hypochromasia Slight; Lymphocytes # (A) 1.6 k/uL (1.0-4.8); Lymphocytes % (A) 13 %; MCH 27.3 pg (25.0-35.0); MCHC 31.8 g/dL (31.0-37.0); MCV 85.8 fL (80.0-100.0); Mean Platelet Volume 6.3; Monocytes # (A) 0.7 k/uL (0-1.0); Monocytes % (A) 5 %; Neutrophils # (A) 9.1 k/uL (1.3-7.7); Neutrophils % (A) 74 %; Platelet Count 389 k/uL (150-450); RBC 4.97 m/uL (4.30-5.90); RDW 15.6 % (11.5-15.5); WBC 12.3 k/uL (3.8-10.6)
[2019-06-08 12:34] LABS: ALT 21 U/L (21-72); AST 27 U/L (17-59); African American GFR (CKD) >90 (>60 ml/min/1.73 sqM); Albumin 3.4 g/dL (3.5-5.0); Alkaline Phosphatase 123 U/L (38-126); Anion Gap 9 mmol/L; Blood Urea Nitrogen 19 mg/dL (9-20); C Reactive Protein 82.4 mg/L (<10.0); Calcium 8.7 mg/dL (8.4-10.2); Carbon Dioxide 23 mmol/L (22-30); Chloride 107 mmol/L (98-107); Glucose 129 mg/dL (74-99); Non-African American GFR(CKD) 84 (>60 ml/min/1.73 sqM); Potassium 4.6 mmol/L (3.5-5.1); Sodium 139 mmol/L (137-145); Total Bilirubin 0.6 mg/dL (0.2-1.3); Total Protein 6.6 g/dL (6.3-8.2)
[2019-06-08 13:38] LABS: Erythrocyte Sedimentation Rate 54 mm/hr (0-15)
--- NOTE | 2019-06-08 14:21 | CT ---
EXAMINATION TYPE: CT lower extremity RT w con DATE OF EXAM: 06/08/2019 COMPARISON: None HISTORY: 59-year-old male with right medial upper leg abscess TECHNIQUE: Contiguous axial scanning of the right thigh performed with IV Contrast, patient injected with 100 mL of Isovue 300. Coronal/sagittal reconstructions performed. 3-D reconstructions generated on a dedicated independent workstation. CT DLP: 1526.2 mGycm Automated exposure control for dose reduction was used. FINDINGS: Multilocular abscesses are present, centered within the subcutaneous adipose of the medial mid to low er thigh. The abscesses than 14.2 cm craniocaudal measuring up to 7.9 cm AP and 5.8 cm wide. Inflammatory fat stranding within the adjacent thigh and overlying skin thickening. Mass effect on the underlying thigh musculature. However, the underlying musculature shows no abnorma l fluid along the fascial planes. No soft tissue air. Prominent varices noted medially distal thigh. Mild degenerative changes of the right hip. The underlying femur remains intact. Some borderline-sized reactive right inguinal lymph nodes measure up to 1.3 cm short axis. IMPRESSION: 1. MULTILOCULAR ABSCESS STATUS ALONG THE MEDIAL ASPECT OF THE MID TO LOWER RIGHT THIGH CENTERED WITHI N THE SUBCUTANEOUS FAT. THESE ABSCESSES AND 14.2 CM CRANIOCAUDAL AND MEASURES 7.9 CM AP BY 5.8 MM WID E. 2. ASSOCIATED SURROUNDING CELLULITIS. 3. NO FINDINGS OF A MORE AGGRESSIVE DEEPER SOFT TISSUE INFECTION AT THIS TIME.
[2019-06-08] MEDS ORDERED: LIDOCAINE 1% INJ 10MG/ML (20 ML MDV) SQ ONE (14:30)
[2019-06-08] MEDS ORDERED: VANCOMYCIN IV PER PHARMACY 1 EACH MISC MISCELLANE PRN (14:31)
[2019-06-08] MEDS ORDERED: PIPERACILLIN-TAZOBACTAM 3.375 GM in SODIUM CHLORIDE 0.9% 100 ML IVPB STA (14:31)
[2019-06-08] MEDS ORDERED: VANCOMYCIN 2,250 MG in SODIUM CHLORIDE 0.9% 500 ML 500 ML IVPB STA (14:35)
[2019-06-08] MEDS ORDERED: ACETAMINOPHEN TAB 325 MG TAB PO PRN (15:21)
[2019-06-08] MEDS ORDERED: ONDANSETRON 4 MG/2 ML VIAL IVP PRN (15:21)
[2019-06-08] MEDS ORDERED: NALOXONE 0.4 MG/ML 1 ML VIAL IV PRN (15:21)
[2019-06-08] MEDS: SODIUM CHLORIDE 0.9% 1,000 ML IV SCH (15:46)
[2019-06-08] MEDS ORDERED: DIPH,PERTUS(ACELL)TETVAC-LF 0.5 ML VIAL IM ONE (18:04)
[2019-06-08] MEDS ORDERED: diphenhydrAMINE 50 MG/ML 1 ML VIAL IVP STA (20:58)
[2019-06-08] MEDS ORDERED: diphenhydrAMINE 25 MG CAP PO PRN (20:59)
[2019-06-08] MEDS ORDERED: APIXABAN 2.5 MG TABLET PO SCH (21:30)
[2019-06-08] MEDS: ATORVASTATIN 20 MG TAB PO SCH (21:51)
[2019-06-08] MEDS: METOPROLOL TARTRATE 25 MG TAB PO SCH (21:51)
[2019-06-08] MEDS: LISINOPRIL 10 MG TAB PO SCH (21:52)
--- NOTE | 2019-06-08 23:07 | P.CONS ---
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 He relates no significant trauma or injury to this site. He has no cuts or bruises that occurred at work and in no injury from animal products her bones to the thigh. He treated it locally but a pustule formed he had no ability to have a draining test he presented to the emergency center. There is noticed to have the large pustule with significant surrounding erythema some tissue necrosis and a large area of cellulitis of right thigh swelling. With this he was admitted to hospital for further evaluation. Surgical consult has been requested. Computed tomography scan shows evidence of the significant abscess. The patient feels quite poorly she's had chills without rigors and believes he had a fever. It has been draining since the attempt for incision and drainage in the emergency center. The material is mostly serosanguineous and minimally purulent. He does not know when his last tetanus shot was. He does relate that he was seen by Dr. Devine regarding his varicose veins and he contemplated laser surgical repair but this never came to fruition. Review of Systems Patient is uncomfortable but is not miserable HEENT:Denies headache or acute visual change. Denies sinus or mouth discomforts. Denies neck stiffness or pain. Denies significant oral cavity pain. Denies difficulty on swallowing. Lungs: Denies significant shortness of breath, cough, sputum production, or hemoptysis. Cardiovascular: Denies significant shortness of breath, chest pain, chest wall pain, orthopnea, dyspnea on exertion, syncope Gastrointestinal:Denies nausea, vomiting, diarrhea, constipation, hematemesis, melena, hematochezia. No no significant change of bowel habit noticed. Musculoskeletal: denies significant myalgias or arthralgias. No new joint swelling. Denies new back pain. Skin: As per the HPI Neuro: Denies headache or visual change. Denies any new onset weakness or difficulty with ambulation. Denies falls or seizures. Psychiatric:Denies anxiety or depression. Endocrine: Denies significant fatigue, denies significant weight loss or weight gain. Past Medical History Past Medical History: Atrial Fibrillation, Atrial Flutter, COPD, GI Bleed, Hypertension, Vascular Disorder Additional Past Medical History / Comment(s): hx Bilateral lower leg edema- "retains water", History of Any Multi-Drug Resistant Organisms: MRSA Year Discovered:: 8 YEARS AGO-treated in [facility] MDRO Source:: LEFT ABD Past Surgical History: Bowel Resection, EPS, Heart Catheterization Additional Past Surgical History / Comment(s): Bowel resection d/t a fistula, colonoscopy, EPS and cardioversion, Past Anesthesia/Blood Transfusion Reactions: No Reported Reaction Past Psychological History: Anxiety, Depression Additional Psychological History / Comment(s): Single but lives with his girlfriend. No children. 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 Is an active tobacco smoker. Relates he drinks alcohol but has no difficulties with alcohol. No current recreational drug use and has no history of injection drug use. Pet dog in the home which is a pitbull, it is a puppy. No experience. No international travel Smoking Status: Current every day smoker - Past Family History Mother Family Medical History: Cancer Additional Family Medical History / Comment(s): breast cancer. Father Family Medical History: Cancer Additional Family Medical History / Comment(s): . Medications and Allergies Home Medications and Allergies Comment(s): Current Medications Acetaminophen (Tylenol Tab) 650 mg PO Q6HR PRN PRN Reason: Mild Pain or Fever > 100.5 Apixaban (Eliquis) 2.5 mg PO BID [facility] Last Admin: 06/08/19 21:51 Dose: 2.5 mg Documented by: Atorvastatin Calcium (Lipitor) 20 mg PO DAILY [facility] Last Admin: 06/08/19 21:51 Dose: 20 mg Documented by: Diphenhydramine HCl (Benadryl) 25 mg PO Q6H [facility] Vancomycin HCl 1,750 mg/ (Sodium Chloride) 500 mls @ 167 mls/hr IVPB Q16H [facility] Sodium Chloride (Saline 0.9%) 1,000 mls @ 60 mls/hr IV .[id number] [facility] Last Admin: 06/08/19 15:46 Dose: 60 mls/hr Documented by: Ceftriaxone Sodium 2 gm/ (Sodium Chloride) 50 mls @ 100 mls/hr IVPB Q24HR [facility] Last Admin: 06/08/19 20:47 Dose: 100 mls/hr Documented by: Lisinopril (Zestril) 10 mg PO HS [facility] Last Admin: 06/08/19 21:52 Dose: 10 mg Documented by: Metoprolol Tartrate (Lopressor) 25 mg PO BID [facility] Last Admin: 06/08/19 21:51 Dose: 25 mg Documented by: Multivitamins (Theragran) 1 each PO DAILY [facility] Naloxone HCl (Narcan) 0.2 mg IV Q2M PRN PRN Reason: Opioid Reversal Ondansetron HCl (Zofran) 4 mg IVP Q8HR PRN PRN Reason: Nausea And Vomiting Spironolactone (Aldactone) 25 mg PO DAILY [facility] Tramadol HCl (Ultram) 50 mg PO Q6H PRN PRN Reason: Moderate Pain Home Medications Medication Instructions Recorded Confirmed Type Metoprolol Tartrate [Lopressor] 25 mg PO BID #60 tab 05/08/18 06/08/19 Rx Atorvastatin [Lipitor] 20 mg PO DAILY 06/03/18 06/08/19 History Spironolactone [Aldactone] 25 mg PO DAILY 06/03/18 06/08/19 History Lisinopril [Zestril] 10 mg PO HS 09/08/18 06/08/19 History Apixaban [Eliquis] 2.5 mg PO BID 03/30/19 06/08/19 History Acetaminophen Tab [Tylenol Tab] 1,000 mg PO Q6H PRN MDD see 06/08/19 06/08/19 History comments Aspirin 325 - 975 mg PO Q6H PRN 06/08/19 06/08/19 History Allergies Allergy/AdvReac Type Severity Reaction Status Date / Time No Known Allergies Allergy Verified 06/08/19 16:13 Physical Exam Vitals: Vital Signs Temp Pulse Pulse Resp BP BP Pulse Ox 06/08/19 21:23 97.8 F 94 17 142/84 99 06/08/19 18:22 16 06/08/19 17:25 97.4 F L 92 18 148/80 97 06/08/19 17:04 94 18 137/83 97 06/08/19 15:51 91 18 141/96 98 06/08/19 13:58 92 18 136/82 98 06/08/19 11:37 98.2 F 103 H 16 147/100 97 Intake and Output 06/08/19 06/08/19 06/08/19 06:59 14:59 22:59 Other: # Voids 1 Weight 136.078 kg 136.078 kg HEENT: Anicteric conjunctiva are pink and moist nasal mucosa grossly intact without significant lesions, there is no thrush. Poor dentition Neck: The neck is supple without significant lymphadenopathy or thyromegaly. Lungs: They're symmetrical bilateral air entry there are expiratory wheezes right the lung la but no jayesh bronchial sounds there is no dullness or egophony Heart: Regular rate and rhythm with an audible S1-S2, no S3 no S4. There is no significant murmur click or rub, PMI was nondisplaced. Abdomen: Obese, Positive bowel sounds soft and nontender without palpable masses or organomegaly. There was no guarding or rebound. Extremities: The upper extremities have excellent pulses they are symmetric, no significant petechiae or telangiectasia. No splinter hemorrhages were noted. Looks reasonably evidence of some chronic bilateral lower extremity edema. The fluctuations of the extensive varicosities but no open ulceration. Right looks to me shows evidence of the active open draining ulcer medial aspect of the thigh with surrounding erythema it is tender is indurated and there is expressible drainage. There is evidence of easily palpable lymphadenopathy to the right groin. No other abnormal lymph nodes are noted. The right pretibial area has evidence of some chronic ulceration it's also noted. It is not draining and is nontender. The peripheral pulses are palpable to the bilateral feet with adequate capillary refill. Neuro: Awake alert oriented to person place and time. There are no acute new gross focal sensory motor deficits. Results CBC & Chem 7: 06/08/19 12:08 06/08/19 12:08 Labs: Abnormal Lab Results - Last 24 Hours (Table) 06/08/19 06/08/19 Range/Units 12:08 12:08 WBC 12.3 H (3.8-10.6) k/uL RDW 15.6 H (11.5-15.5) % Neutrophils # 9.1 H (1.3-7.7) k/uL ESR 54 H (0-15) mm/hr Glucose 129 H (74-99) mg/dL C-Reactive Protein 82.4 H (<10.0) mg/L Albumin 3.4 L (3.5-5.0) g/dL Microbiology - Last 24 Hours (Table) 06/08/19 15:36 Wound Culture - Preliminary Leg - Left Laboratory Results WBC 12.3 k/uL (3.8-10.6) H 06/08/19 12:08 RBC 4.97 m/uL (4.30-5.90) 06/08/19 12:08 Hgb 13.6 gm/dL (13.0-17.5) 06/08/19 12:08 Hct 42.6 % (39.0-53.0) 06/08/19 12:08 MCV 85.8 fL (80.0-100.0) 06/08/19 12:08 MCH 27.3 pg (25.0-35.0) 06/08/19 12:08 MCHC 31.8 g/dL (31.0-37.0) 06/08/19 12:08 RDW 15.6 % (11.5-15.5) H 06/08/19 12:08 Plt Count 389 k/uL (150-450) 06/08/19 12:08 Neutrophils % 74 % 06/08/19 12:08 Lymphocytes % 13 % 06/08/19 12:08 Monocytes % 5 % 06/08/19 12:08 Eosinophils % 5 % 06/08/19 12:08 Basophils % 0 % 06/08/19 12:08 Neutrophils # 9.1 k/uL (1.3-7.7) H 06/08/19 12:08 Lymphocytes # 1.6 k/uL (1.0-4.8) 06/08/19 12:08 Monocytes # 0.7 k/uL (0-1.0) 06/08/19 12:08 Eosinophils # 0.6 k/uL (0-0.7) 06/08/19 12:08 Basophils # 0.1 k/uL (0-0.2) 06/08/19 12:08 Hypochromasia Slight 06/08/19 12:08 ESR 54 mm/hr (0-15) H 06/08/19 12:08 Sodium 139 mmol/L (137-145) 06/08/19 12:08 Potassium 4.6 mmol/L (3.5-5.1) 06/08/19 12:08 Chloride 107 mmol/L (98-107) 06/08/19 12:08 Carbon Dioxide 23 mmol/L (22-30) 06/08/19 12:08 Anion Gap 9 mmol/L 06/08/19 12:08 BUN 19 mg/dL (9-20) 06/08/19 12:08 Creatinine 0.99 mg/dL (0.66-1.25) 06/08/19 12:08 Est GFR (CKD-EPI)AfAm >90 (>60 ml/min/1.73 sqM) 06/08/19 12:08 Est GFR (CKD-EPI)NonAf 84 (>60 ml/min/1.73 sqM) 06/08/19 12:08 Glucose 129 mg/dL (74-99) H 06/08/19 12:08 Plasma Lactic Acid Luis 1.8 mmol/L (0.7-2.0) 06/08/19 12:08 Calcium 8.7 mg/dL (8.4-10.2) 06/08/19 12:08 Total Bilirubin 0.6 mg/dL (0.2-1.3) 06/08/19 12:08 AST 27 U/L (17-59) 06/08/19 12:08 ALT 21 U/L (21-72) 06/08/19 12:08 Alkaline Phosphatase 123 U/L (38-126) 06/08/19 12:08 C-Reactive Protein 82.4 mg/L (<10.0) H 06/08/19 12:08 Total Protein 6.6 g/dL (6.3-8.2) 06/08/19 12:08 Albumin 3.4 g/dL (3.5-5.0) L 06/08/19 12:08 Microbiology 06/08/19 15:36 Leg - Left Wound Culture - Preliminary The computed tomography scan of the leg is reviewed revealing evidence of the significant abscess medial aspect of the right thigh evidence of any deeper infection no myositis Assessment and Plan (1) Abscess of right leg Narrative/Plan: 51-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 Inability to drain the home setting and he suddenly had increasing pain and swelling erythema typify excessively sought attention at the hospital. Incision and drainage was attempted in the ER that was limited because of the need for surgical intervention. The patient will have a dressing applied with foam and EBD utilize some mesh garments try to keep it in place. Antibiotic therapy was started with vancomycin we'll also get and Rocephin for now until we have further data. Computed tomography scan does show evidence of abscess he will need surgical incision and drainage to be performed. Surgical consult is in process. We'll update his tetanus vaccine. When a multivitamin with [employer] adequate protein intake. For the chronic distal ulceration we will utilize therahoney to be changed every other day. Leukocytosis is due to significant infection and abscess to the right thigh which is associated with some lymphadenopathy also. Current Visit: Yes Status: Acute Code(s): L02.415 - CUTANEOUS ABSCESS OF RIGHT LOWER LIMB SNOMED Code(s): 585200613 (2) Cellulitis of leg, right Current Visit: Yes Status: Acute Code(s): L03.115 - CELLULITIS OF RIGHT L OWER LIMB SNOMED Code(s): 684352586 (3) Varicose veins of both legs with edema Current Visit: No Status: Acute Code(s): I83.893 - VARICOSE VEINS OF BI LOW EXTREM W OTH COMPLICATIONS SNOMED Code(s): 74989949
--- NOTE | 2019-06-08 23:21 | P.HPIM ---
History of Present Illness H&P Date: 06/08/19 Chief Complaint: Right thigh abscess History of presenting complaint: This is a 59-year-old patient of Dr. Casey Varner. Chronic stable medical conditions include congestive heart failure EF 40%, secondary portal hypertension, COPD, GERD, Rakesh arthritis, varicose vein been followed by Dr. Rosario, atrial fibrillation. Patient about 2 months ago noticed a boil on the inner part of the right thigh. It continued to grow. And continued to enlarge. Patient had some pain but is able to get around. 4 days ago he broke down into what appeared to be no abscess. Denies any obvious fever and chills. The blister was taken off in the ER. Cultures were sent. Patient's on IV ceftriaxone and vancomycin. Infectious disease and surgery was consulted. Review of systems: GEN.: Tired EYES: None HEENT: None NECK: None RESPIRATORY: Mild shortness of breath CARDIOVASCULAR: None GASTROINTESTINAL: None GENITOURINARY: None MUSCULOSKELETAL: Joint pains LYMPHATICS: None HEMATOLOGICAL: Lower extremity varicose veins PSYCHIATRY: None NEUROLOGICAL: None Past medical history to include: Congestive heart failure EF 40%, secondary probably hypertension, COPD, GERD, osteoarthritis, varicose veins, atrial fibrillation Past surgical history to include: Bowel resection due to fistula Social history: Patient being smoking for over 45 years now don't a few cigarettes a day. Lives with a girlfriend. Alcohol occasionally. 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 Physical examination: VITAL SIGNS: 98.2, 103, 16, 136/82, 98% room air GENERAL: [BMI 37.5, sitting at edge of bed, not in distress]. EYES: [Pupils equal. Conjunctiva amberly]l. HEENT: [External appearance of nose and ears normal, oral cavity grossly normal]. NECK: [JVD not raised; masses not palpable]. HEART: [First and second heart sounds are normal; some edema]. LUNGS:[ Respiratory rate normal; decreased breath sounds]. ABDOMEN: [Soft, nontender, liver spleen not palpable, no masses palpable]. PSYCH: [Alert and oriented x3; mood and affect amberly]l. NEUROLOGICAL: [Cranial nerves grossly intact; no facial asymmetry, power and sensation grossly intact]. LYMPHATICS: [No lymph nodes palpable in the axilla and neck] EXTREMITY: Right thigh has a large area that is broken down with central area of dark, large area of induration surrounding it signs of inflammation. Draining Assessment: -This is a large abscess with large area of induration surrounding it was deroofed in the ER present for close to 7-8 weeks . Will need surgical intervention -Chronic congestive heart failure from systolic dysfunction EF 40% -Secondary probably hypertension -COPD in a current smoker -GERD -Primary osteoarthritis -Large varicose veins of lower extremity -History of atrial fibrillation Plan: Patient is currently on ceftriaxone and vancomycin per ID. General surgery and vascular surgery opinion consulted. Will get EKG and chest x-ray in the morning. Home medications resumed. We'll hold of patient's eliquis pending any surgical intervention. Care was discussed with the patient. Past Medical History Past Medical History: Atrial Fibrillation, Atrial Flutter, COPD, GI Bleed, Hypertension, Vascular Disorder Additional Past Medical History / Comment(s): hx Bilateral lower leg edema- "retains water", History of Any Multi-Drug Resistant Organisms: MRSA Date of last positivie culture/infection: 8 YEARS AGO-treated in [facility] MDRO Source:: LEFT ABD Past Surgical History: Bowel Resection, EPS, Heart Catheterization Additional Past Surgical History / Comment(s): Bowel resection d/t a fistula, colonoscopy, EPS and cardioversion, Past Anesthesia/Blood Transfusion Reactions: No Reported Reaction Past Psychological History: Anxiety, Depression Additional Psychological History / Comment(s): Single but lives with his girlfriend. No children. 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 Is an active tobacco smoker. Relates he drinks alcohol but has no difficulties with alcohol. No current recreational drug use and has no history of injection drug use. Pet dog in the home which is a pitbull, it is a puppy. No experience. No international travel Smoking Status: Current every day smoker - Past Family History Mother Family Medical History: Cancer Additional Family Medical History / Comment(s): breast cancer. Father Family Medical History: Cancer Additional Family Medical History / Comment(s): . Medications and Allergies Home Medications Medication Instructions Recorded Confirmed Type Metoprolol Tartrate [Lopressor] 25 mg PO BID #60 tab 05/08/18 06/08/19 Rx Atorvastatin [Lipitor] 20 mg PO DAILY 06/03/18 06/08/19 History Spironolactone [Aldactone] 25 mg PO DAILY 06/03/18 06/08/19 History Lisinopril [Zestril] 10 mg PO HS 09/08/18 06/08/19 History Apixaban [Eliquis] 2.5 mg PO BID 03/30/19 06/08/19 History Acetaminophen Tab [Tylenol Tab] 1,000 mg PO Q6H PRN MDD see 06/08/19 06/08/19 History comments Aspirin 325 - 975 mg PO Q6H PRN 06/08/19 06/08/19 History Allergies Allergy/AdvReac Type Severity Reaction Status Date / Time No Known Allergies Allergy Verified 06/08/19 16:13 Physical Exam Vitals: Vital Signs Temp Pulse Pulse Resp BP BP Pulse Ox 06/08/19 21:23 97.8 F 94 17 142/84 99 06/08/19 18:22 16 06/08/19 17:25 97.4 F L 92 18 148/80 97 06/08/19 17:04 94 18 137/83 97 06/08/19 15:51 91 18 141/96 98 06/08/19 13:58 92 18 136/82 98 06/08/19 11:37 98.2 F 103 H 16 147/100 97 Intake and Output 06/08/19 06/08/19 06/09/19 14:59 22:59 06:59 Other: # Voids 1 Weight 136.078 kg 136.078 kg Results CBC & Chem 7: 06/08/19 12:08 06/08/19 12:08 Labs: Abnormal Lab Results - Last 24 Hours (Table) 06/08/19 06/08/19 Range/Units 12:08 12:08 WBC 12.3 H (3.8-10.6) k/uL RDW 15.6 H (11.5-15.5) % Neutrophils # 9.1 H (1.3-7.7) k/uL ESR 54 H (0-15) mm/hr Glucose 129 H (74-99) mg/dL C-Reactive Protein 82.4 H (<10.0) mg/L Albumin 3.4 L (3.5-5.0) g/dL Microbiology - Last 24 Hours (Table) 06/08/19 15:36 Wound Culture - Preliminary Leg - Left Thrombosis Risk Factor Assmnt - Choose All That Apply Any of the Below Risk Factors Present?: Yes Each Factor Represents 1 point: Age 41-60 years, Obesity (BMI >25), Swollen legs (current), Varicose veins Other Risk Factors: No Thrombosis Risk Factor Assessment Total Risk Factor Score: 4 Thrombosis Risk Factor Assessment Level: Moderate Risk
[2019-06-09] MEDS: diphenhydrAMINE 25 MG CAP PO SCH ×4 (03:42→20:49)
[2019-06-09] MEDS: VANCOMYCIN 1,750 MG in SODIUM CHLORIDE 0.9% 500 ML 500 ML IVPB SCH ×2 (05:34→20:49)
--- NOTE | 2019-06-09 08:29 | XR ---
EXAMINATION TYPE: XR chest 2V DATE OF EXAM: 06/09/2019 COMPARISON: 06/23/2018 HISTORY: Shortness of breath TECHNIQUE: Frontal and lateral views of the chest are obtained. FINDINGS: Scattered senescent parenchymal changes noted. No evidence for infiltrate. No evidence for atelectasis. Heart size is stable. Mediastinal structures are stable and grossly unremarkable. No evidence for hilar prominence. Degenerative changes dorsal spine. IMPRESSION: 1. No evidence for acute pulmonary disease.
[2019-06-09] MEDS: SODIUM CHLORIDE 0.9% 1,000 ML IV SCH ×2 (09:43→20:49)
[2019-06-09] MEDS: METOPROLOL TARTRATE 25 MG TAB PO SCH ×2 (09:45→20:48)
[2019-06-09] MEDS: SPIRONOLACTONE 25 MG TAB PO SCH (09:45)
[2019-06-09] MEDS: MULTIVITAMINS, THERA 1 EACH TAB PO SCH (09:45)
[2019-06-09] MEDS: ATORVASTATIN 20 MG TAB PO SCH (09:45)
--- NOTE | 2019-06-09 12:48 | P.GSCN ---
History of Present Illness Consult date: 06/09/19 Reason for Consult: Thigh abscess Requesting physician: Massiel Watkins History of present illness: CHIEF COMPLAINT: Right thigh abscess HISTORY OF PRESENT ILLNESS: 59 year old male who presented to the ER due to an abscess on his right thigh. Patient reports this has been present for about 5 days. He states it was very small when he first noticed it but has increased in size, redness, and tenderness. Bedside I&D was performed in the ER. Wound is currently draining serosanguineous fluid. Cultures were obtained and patient was started on IV antibiotics. General surgery was consulted for possible incision and drainage. PAST MEDICAL HISTORY: See list. PAST SURGICAL HISTORY: See list. SOCIAL HISTORY: No illicit drug use. REVIEW OF SYSTEMS: CONSTITUTIONAL: Reports fevers. HEENT: Denies blurred vision, vision changes, or eye pain. Denies hemoptysis CARDIOVASCULAR: Denies chest pain or pressure. RESPIRATORY: No shortness of breath. GASTROINTESTINAL: Denies abdominal pain. Denies nausea and vomiting. HEMATOLOGIC: Denies bleeding disorders. GENITOURINARY: Denies any blood in urine. SKIN: Reports wound to right thigh. PHYSICAL EXAM: VITAL SIGNS: Reviewed. GENERAL: Well-developed in no acute distress. HEENT: No sclera icterus. Extraocular movements grossly intact. Moist buccal mucosa. Head is atraumatic, normocephalic. ABDOMEN: Soft. Nondistended. Nontender. NEUROLOGIC: Alert and oriented. Cranial nerves II through XII grossly intact. SKIN: Large wound to right medial thigh with serosanguineous drainage. Surrounding erythema. Indurated with fluctuance. Small area of necrotic tissue to center of wound. LABORATORY DATA: WBC 12.3. Hemoglobin 13.6. Platelet count 189. IMAGING: CT right lower extremity: Multilocular abscesses along the medial aspect of the mid to lower right thigh centered within the subcutaneous fat. These abscesses are 14.2 cm craniocaudal and measures 7.9 cm x 5.8 mm wide. Associated surrounding cellulitis. No findings of the more aggressive deeper soft tissue infection at this time. ASSESSMENT: 1. Right thigh abscess with surrounding cellulitis PLAN: NPO Continue IV antibiotics Await culture results Patient to undergo I&D today with Dr. Walsh Nurse practitioner note has been reviewed by physician. Signing provider agrees with the documented findings, assessment, and plan of care. Past Medical History Past Medical History: Atrial Fibrillation, Atrial Flutter, COPD, GI Bleed, Hypertension, Vascular Disorder Additional Past Medical History / Comment(s): hx Bilateral lower leg edema- "retains water", History of Any Multi-Drug Resistant Organisms: MRSA Year Discovered:: 8 YEARS AGO-treated in [facility] MDRO Source:: LEFT ABD Past Surgical History: Bowel Resection, EPS, Heart Catheterization Additional Past Surgical History / Comment(s): Bowel resection d/t a fistula, colonoscopy, EPS and cardioversion, Past Anesthesia/Blood Transfusion Reactions: No Reported Reaction Past Psychological History: Anxiety, Depression Additional Psychological History / Comment(s): Single but lives with his girlfriend. No children. 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 Is an active tobacco smoker. Relates he drinks alcohol but has no difficulties with alcohol. No current recreational drug use and has no history of injection drug use. Pet dog in the home which is a pitbull, it is a puppy. No experience. No international travel Smoking Status: Current every day smoker - Past Family History Mother Family Medical History: Cancer Additional Family Medical History / Comment(s): breast cancer. Father Family Medical History: Cancer Additional Family Medical History / Comment(s): . Medications and Allergies Home Medications Medication Instructions Recorded Confirmed Type Metoprolol Tartrate [Lopressor] 25 mg PO BID #60 tab 05/08/18 06/08/19 Rx Atorvastatin [Lipitor] 20 mg PO DAILY 06/03/18 06/08/19 History Spironolactone [Aldactone] 25 mg PO DAILY 06/03/18 06/08/19 History Lisinopril [Zestril] 10 mg PO HS 09/08/18 06/08/19 History Apixaban [Eliquis] 2.5 mg PO BID 03/30/19 06/08/19 History Acetaminophen Tab [Tylenol Tab] 1,000 mg PO Q6H PRN MDD see 06/08/19 06/08/19 History comments Aspirin 325 - 975 mg PO Q6H PRN 06/08/19 06/08/19 History Allergies Allergy/AdvReac Type Severity Reaction Status Date / Time No Known Allergies Allergy Verified 06/08/19 16:13 Surgical - Exam Vital Signs Temp Pulse Resp BP Pulse Ox 98.2 F 103 H 16 147/100 97 06/08/19 11:37 06/08/19 11:37 06/08/19 11:37 06/08/19 11:37 06/08/19 11:37 Results - Labs 06/08/19 12:08 06/08/19 12:08 Abnormal Lab Results - Last 24 Hours (Table) 06/08/19 06/08/19 Range/Units 12:08 12:08 WBC 12.3 H (3.8-10.6) k/uL RDW 15.6 H (11.5-15.5) % Neutrophils # 9.1 H (1.3-7.7) k/uL ESR 54 H (0-15) mm/hr Glucose 129 H (74-99) mg/dL C-Reactive Protein 82.4 H (<10.0) mg/L Albumin 3.4 L (3.5-5.0) g/dL Microbiology - Last 24 Hours (Table) 06/08/19 15:36 Gram Stain - Preliminary Leg - Left Wound Culture - Preliminary Diabetes panel 06/08/19 Range/Units 12:08 Sodium 139 (137-145) mmol/L Potassium 4.6 (3.5-5.1) mmol/L Chloride 107 (98-107) mmol/L Carbon Dioxide 23 (22-30) mmol/L BUN 19 (9-20) mg/dL Creatinine 0.99 (0.66-1.25) mg/dL Glucose 129 H (74-99) mg/dL Calcium 8.7 (8.4-10.2) mg/dL AST 27 (17-59) U/L ALT 21 (21-72) U/L Alkaline Phosphatase 123 (38-126) U/L Total Protein 6.6 (6.3-8.2) g/dL Albumin 3.4 L (3.5-5.0) g/dL Calcium panel 06/08/19 Range/Units 12:08 Calcium 8.7 (8.4-10.2) mg/dL Albumin 3.4 L (3.5-5.0) g/dL Pituitary panel 06/08/19 Range/Units 12:08 Sodium 139 (137-145) mmol/L Potassium 4.6 (3.5-5.1) mmol/L Chloride 107 (98-107) mmol/L Carbon Dioxide 23 (22-30) mmol/L BUN 19 (9-20) mg/dL Creatinine 0.99 (0.66-1.25) mg/dL Glucose 129 H (74-99) mg/dL Calcium 8.7 (8.4-10.2) mg/dL Adrenal panel 06/08/19 Range/Units 12:08 Sodium 139 (137-145) mmol/L Potassium 4.6 (3.5-5.1) mmol/L Chloride 107 (98-107) mmol/L Carbon Dioxide 23 (22-30) mmol/L BUN 19 (9-20) mg/dL Creatinine 0.99 (0.66-1.25) mg/dL Glucose 129 H (74-99) mg/dL Calcium 8.7 (8.4-10.2) mg/dL Total Bilirubin 0.6 (0.2-1.3) mg/dL AST 27 (17-59) U/L ALT 21 (21-72) U/L Alkaline Phosphatase 123 (38-126) U/L Total Protein 6.6 (6.3-8.2) g/dL Albumin 3.4 L (3.5-5.0) g/dL
[2019-06-09] MEDS ORDERED: IV FLUID CONTINUATION 800 ML IV ONE ×2 (16:36)
[2019-06-09] MEDS ORDERED: fentaNYL (PF) 50 MCG/ML 2 ML AMP ONE (17:43)
[2019-06-09] MEDS ORDERED: HYDROmorphone (PF) 1 MG/ML ONE (17:43)
[2019-06-09] MEDS ORDERED: SUCCINYLCHOLINE CHLORIDE 100 MG/5 ML SYR IV ONE (17:43)
[2019-06-09] MEDS ORDERED: PROPOFOL 10 MG/ML 20 ML VIAL IV ONE (17:43)
[2019-06-09] MEDS ORDERED: KETAMINE 10 MG/ML 20 ML VIAL ONE (17:43)
[2019-06-09] MEDS ORDERED: LIDOCAINE 1% INJ 10MG/ML (20 ML MDV) ONE (17:43)
[2019-06-09] MEDS ORDERED: MIDAZOLAM 2 MG/2 ML VIAL ONE (17:43)
[2019-06-09] MEDS ORDERED: HYDROmorphone 0.5 MG/0.5 ML SYRINGE IVP ONE (19:00)
[2019-06-09] MEDS: LISINOPRIL 10 MG TAB PO SCH (20:49)
--- NOTE | 2019-06-09 23:19 | P.PN ---
Progress Note - Text Progress Note Date: 06/09/19 Chief Complaint: Right thigh abscess History of presenting complaint: This is a 59-year-old patient of Dr. Casey Varner. Chronic stable medical conditions include congestive heart failure EF 40%, secondary portal hypertension, COPD, GERD, Rakseh arthritis, varicose vein been followed by Dr. Rosario, atrial fibrillation. Patient about 2 months ago noticed a boil on the inner part of the right thigh. It continued to grow. And continued to enlarge. Patient had some pain but is able to get around. 4 days ago he broke down into what appeared to be no abscess. Denies any obvious fever and chills. The blister was taken off in the ER. Cultures were sent. Patient's on IV ceftriaxone and vancomycin. Infectious disease and surgery was consulted. Today-saw the patient does morning. Dressing over the right thigh. Pending to go to the ER. No new issues. Review of systems: Was done for constitutional, cardiovascular, GI, pulmonary. relevant finding as above Active Medications Acetaminophen (Tylenol Tab) 650 mg PO Q6HR PRN PRN Reason: Mild Pain or Fever > 100.5 Atorvastatin Calcium (Lipitor) 20 mg PO DAILY [facility] Last Admin: 06/09/19 09:45 Dose: 20 mg Documented by: Diphenhydramine HCl (Benadryl) 25 mg PO Q6H [facility] Last Admin: 06/09/19 20:49 Dose: 25 mg Documented by: Hydromorphone HCl (Dilaudid) 1 mg IM Q3HR PRN PRN Reason: Pain Vancomycin HCl 1,750 mg/ (Sodium Chloride) 500 mls @ 167 mls/hr IVPB Q16H [facility] Last Admin: 06/09/19 20:49 Dose: 167 mls/hr Documented by: Sodium Chloride (Saline 0.9%) 1,000 mls @ 60 mls/hr IV .[id number] [facility] Last Admin: 06/09/19 20:49 Dose: 60 mls/hr Documented by: Ceftriaxone Sodium 2 gm/ (Sodium Chloride) 50 mls @ 100 mls/hr IVPB Q24HR [facility] Last Admin: 06/09/19 09:44 Dose: 100 mls/hr Documented by: Lisinopril (Zestril) 10 mg PO HS [facility] Last Admin: 12/04/19 20:49 Dose: Not Given Documented by: Metoprolol Tartrate (Lopressor) 25 mg PO BID [facility] Last Admin: 06/09/19 20:48 Dose: 25 mg Documented by: Multivitamins (Theragran) 1 each PO DAILY [facility] Last Admin: 06/09/19 09:45 Dose: 1 each Documented by: Naloxone HCl (Narcan) 0.2 mg IV Q2M PRN PRN Reason: Opioid Reversal Ondansetron HCl (Zofran) 4 mg IVP Q8HR PRN PRN Reason: Nausea And Vomiting Spironolactone (Aldactone) 25 mg PO DAILY [facility] Last Admin: 06/09/19 09:45 Dose: 25 mg Documented by: Tramadol HCl (Ultram) 50 mg PO Q6H PRN PRN Reason: Moderate Pain Physical examination: VITAL SIGNS: 98.1, 90, 16, 107/70, 97% room air GENERAL: Laying down, comfortable EYES: Pupils equal. Conjunctiva normal. HEENT: External appearance of nose and ears normal, oral cavity grossly normal. NECK: JVD not raised; masses not palpable. HEART: First and second heart sounds are normal; some edema. LUNGS: Respiratory rate normal; decreased breath sounds. ABDOMEN: Soft, nontender, liver spleen not palpable, no masses palpable. PSYCH: Alert and oriented x3; mood and affect normal. EXTREMITY: Dressing over the wound Assessment: -This is a large abscess with large area of induration surrounding it was deroofed in the ER present for close to 7-8 weeks . Will need surgical intervention -Chronic congestive heart failure from systolic dysfunction EF 40% -Secondary probably hypertension -COPD in a current smoker -GERD -Primary osteoarthritis -Large varicose veins of lower extremity -History of atrial fibrillation Plan: Continue with current antibiotics. Discussed with the patient. Pending surgical intervention.
[2019-06-10] MEDS: diphenhydrAMINE 25 MG CAP PO SCH ×4 (02:15→21:25)
[2019-06-10] MEDS: ATORVASTATIN 20 MG TAB PO SCH (07:44)
[2019-06-10] MEDS: METOPROLOL TARTRATE 25 MG TAB PO SCH ×2 (07:45→21:25)
[2019-06-10] MEDS: MULTIVITAMINS, THERA 1 EACH TAB PO SCH (07:45)
[2019-06-10] MEDS: SPIRONOLACTONE 25 MG TAB PO SCH (07:45)
--- NOTE | 2019-06-10 08:11 | P.OP ---
Date of Procedure: 06/09/19 Preoperative Diagnosis: Necrotizing infection right medial thigh Postoperative Diagnosis: Necrotizing infection right medial thigh Procedure(s) Performed: Debridement of right medial thigh Anesthesia: THALIA Surgeon: Prasad Walsh Estimated Blood Loss (ml): 50 Pathology: other (fat culture) Condition: stable Description of Procedure: Patient's placed on the operating table in the supine position. His right thigh was prepped and draped usual fashion. The patient had a central area of skin necrosis. This was a degree sharply with a 15 blade. The necrotic fat below the skin was also divided sharply. A large amount. Fluid was expressed from the abscess area. The skin and fat were debrided. The wound measured approximately 10 x 12 x 5 cm in size. Hemostasis was achieved with powdered snow Surgicel. The wound was packed with dry Kerlix. A Kehinde wrap was placed over top this. Patient top procedure well and was sent to recovery in stable condition.
[2019-06-10 09:45] LABS: HCT 41.1 % (39.0-53.0); HGB 12.9 gm/dL (13.0-17.5); Hypochromasia Moderate; MCH 27.4 pg (25.0-35.0); MCHC 31.5 g/dL (31.0-37.0); MCV 87.1 fL (80.0-100.0); Platelet Count 390 k/uL (150-450); RBC 4.72 m/uL (4.30-5.90); RDW 15.6 % (11.5-15.5); WBC 9.3 k/uL (3.8-10.6)
[2019-06-10 10:09] LABS: Potassium 4.3 mmol/L (3.5-5.1)
[2019-06-10] MEDS: VANCOMYCIN 1,750 MG in SODIUM CHLORIDE 0.9% 500 ML 500 ML IVPB SCH (13:17)
--- NOTE | 2019-06-10 15:03 | CDI ---
Documentation Clarification Form Date: 06/10/2019 2:55:44 PM From: Ally MccainPackSADA sullivan, CCDS Admit Date: 06/10/2019 2:15:00 PM Patient Name: Tomas Corral Visit Number: [id number] Discharge Date: ATTENTION: The Clinical Documentation Specialists (CDI) and [facility] Coding Staff appreciate your assistance in clarifying documentation. Please respond to the clarification below the line at the bottom and electronically sign. The CDI & [facility] Coding staff will review the response and follow-up if needed. Please note: Queries are made part of the Legal Health Record. If you have any questions, please contact the author of this message via ITS. Dr. Prasad Walsh: Per your operative note, a debridement was performed on 06/09 but without specificity of excisional or non-excisional. Patient went for a second debridement of his right thigh n 06/15, debridement is also not specified as excisional or non-excisional. History/Risk Factors: CHF, secondary portal hypertension, COPD, GERD, Osteoarthritis, varicose veins, Atrial fibrillation & smoker. Clinical Indicators: Presented with large abscess to right thigh & right upper leg cellulitis. Treatment: IV fl bolus, IV Toradol, IV Zosyn, IV Vanco Five elements required for accurate and compliant documentation of a debridement: 1.Technique used (e.g., excisional, excised, cutting, etc.) 2.Instrument(s) used (e.g., scalpel, curette, etc.) 3.Nature of the tissue removed (e.g., necrotic, devitalized tissues, non- viable tissue, etc.) 4.Appearance and size of the wound (e.g., down to fresh bleeding tissue, 7cm x 10cm, etc.) 5.Depth of the debridement* (e.g., skin, subcutaneous tissue, fascia, muscle, bone, etc.) In order to capture the severity of condition and code the appropriate procedure; could you please document the following: Excisional debridement (the removal of necrotic, devitalized tissue or slough by means of cutting away of tissue) Non-excisional debridement (the removal of necrotic, devitalized tissue or slough by means of flushing, brushing, or washing. (Irrigation) Other; please specify Unable to determine (Last Revision: October 2017) See op report addendum- excisional MTDD
--- NOTE | 2019-06-10 15:56 | P.PN ---
Subjective Progress Note Date: 06/10/19 CHIEF COMPLAINT: Right thigh abscess HISTORY OF PRESENT ILLNESS: Patient is status post debridement of right medial thigh abscess. Patient examined at the bedside with Dr. Walsh. He denies pain to right leg. Vital signs stable. He is afebrile. PHYSICAL EXAM: VITAL SIGNS: Reviewed. GENERAL: Well-developed in no acute distress. HEENT: No sclera icterus. Extraocular movements grossly intact. Moist buccal mucosa. Head is atraumatic, normocephalic. ABDOMEN: Soft. Nondistended. Nontender. NEUROLOGIC: Alert and oriented. Cranial nerves II through XII grossly intact. SKIN: Dressing to right leg clean dry intact. Kehinde wrap noted. ASSESSMENT: 1. Right thigh abscess, necrotizing infection with surrounding cellulitis PLAN: Continue daily dressing changes. Pack wound with wet to dry Kerlix. Cover with ABD and wrap with KEHINDE bandage Patient will require wound vac therapy in the near future Continue antibiotics per Dr. Green Nurse practitioner note has been reviewed by physician. Signing provider agrees with the documented findings, assessment, and plan of care. Objective - Vital Signs Vital signs: Vital Signs Temp 97.4 F L 06/10/19 12:48 Pulse 86 06/10/19 12:48 Resp 18 06/10/19 12:48 BP 113/71 06/10/19 12:48 Pulse Ox 98 06/10/19 12:48 Intake & Output 06/09/19 06/10/19 06/10/19 18:59 06:59 18:59 Intake Total 1040 1200 Output Total 25 Balance 1015 1200 Weight 135.5 kg Intake: IV 450 200 Intake, IV Titration 50 Amount cefTRIAXone 2 gm In 50 Sodium Chloride 0.9% 50 ml @ 100 mls/hr IVPB Q24HR [facility] Rx#:[id number] Oral 540 1000 Output: Estimated Blood Loss 25 Other: Voiding Method Toilet Toilet # Voids 3 2 2 - Labs CBC & Chem 7: 06/10/19 09:20 06/10/19 09:20 Labs: Abnormal Lab Results - Last 24 Hours (Table) 06/10/19 06/10/19 Range/Units 09:20 09:20 Hgb 12.9 L (13.0-17.5) gm/dL RDW 15.6 H (11.5-15.5) % Creatinine 1.33 H (0.66-1.25) mg/dL Glucose 133 H (74-99) mg/dL Calcium 8.0 L (8.4-10.2) mg/dL Microbiology - Last 24 Hours (Table) 06/08/19 15:36 Gram Stain - Final Leg - Left Wound Culture - Final Staphylococcus aureus 06/08/19 12:08 Blood Culture - Preliminary Blood No Growth after 48 hours 06/09/19 18:30 Tissue Culture - Preliminary Thigh - Right 06/09/19 18:30 Anaerobic Culture - Preliminary Thigh - Right
[2019-06-10] MEDS: traMADol 50 MG TAB PO PRN (16:39)
[2019-06-10] MEDS: SODIUM CHLORIDE 0.9% 1,000 ML IV SCH ×2 (17:35→23:56)
[2019-06-10] MEDS: LISINOPRIL 10 MG TAB PO SCH (20:12)
[2019-06-10] MEDS: HYDROmorphone 1 MG/ML 1 ML SYRINGE IM PRN (21:30)
--- NOTE | 2019-06-10 22:12 | P.PN ---
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 He relates no significant trauma or injury to this site. He has no cuts or bruises that occurred at work and in no injury from animal products her bones to the thigh. He treated it locally but a pustule formed he had no ability to have a draining test he presented to the emergency center. There is noticed to have the large pustule with significant surrounding erythema some tissue necrosis and a large area of cellulitis of right thigh swelling. With this he was admitted to hospital for further evaluation. Surgical consult has been requ ested. Computed tomography scan shows evidence of the significant abscess. The patient feels quite poorly she's had chills without rigors and believes he had a fever. It has been draining since the attempt for incision and drainage in the emergency center. The material is mostly serosanguineous and minimally purulent. He does not know when his last tetanus shot was. He does relate that he was seen by Dr. Devine regarding his varicose veins and he contemplated laser surgical repair but this never came to fruition. 06/10/2019 the patient is feeling relatively well and does voice his standing concerns to the extensive nature the wound after the surgical debridement that occurred. He had no idea that the process on his leg would be so significant. He is having some discomfort but is not severe. He is well known to the vascular surgeon from the past evaluations. At this time is having no fevers, chills or rigors of pain at the site he is doing modestly well. His appetite is adequate. He is having no nausea or emesis, is having no diarrhea and other difficulties with antibiotic therapy. Objective - Vital Signs Vital signs: Vital Signs Temp 97.4 F L 06/10/19 12:48 Pulse 86 06/10/19 12:48 Resp 18 06/10/19 12:48 BP 113/71 06/10/19 12:48 Pulse Ox 98 06/10/19 12:48 Intake & Output 06/10/19 06/10/19 06/11/19 06:59 18:59 06:59 Intake Total 1200 Balance 1200 Weight 135.5 kg Intake: IV 200 Oral 1000 Other: Voiding Method Toilet # Voids 2 3 - Exam HEENT: Anicteric conjunctiva are pink and moist nasal mucosa grossly intact without significant lesions, there is no thrush. Poor dentition Neck: The neck is supple without significant lymphadenopathy or thyromegaly. Lungs: They're symmetrical bilateral air entry there are expiratory wheezes right the lung la but no jayesh bronchial sounds there is no dullness or egophony Heart: Regular rate and rhythm with an audible S1-S2, no S3 no S4. There is no significant murmur click or rub, PMI was nondisplaced. Abdomen: Obese, Positive bowel sounds soft and nontender without palpable masses or organomegaly. There was no guarding or rebound. Extremities: The upper extremities have excellent pulses they are symmetric, no significant petechiae or telangiectasia. No splinter hemorrhages were noted. The left lower extremities reveal evidence of some chronic lower extremity edema. Thel eft limbs reveal the extensive varicosities but no open ul ceration. The reduction reveals the extensive surgical wound in the medial aspect of the thigh. There is evidence of a stinging amount of necrotic fat at the base of the ulceration. There was cautery that occurred and approximately a handful of necrotic fat was easily removed from the base of the ulceration with a dressing change. It is packed with a saline dressing. The surrounding erythema seems to be slightly improved the tenderness of the area persists. There is evidence of easily palpable lymphadenopathy to the right groin. No other abnormal lymph nodes are noted. The right pretibial area has evidence of some chronic ulceration it's also noted. It is not draining and is nontender. The peripheral pulses are palpable to the bilateral feet with adequate capillary refill. Neuro: Awake alert oriented to person place and time. There are no acute new gross focal sensory motor deficits. - Labs CBC & Chem 7: 06/10/19 09:20 06/10/19 09:20 Labs: Abnormal Lab Results - Last 24 Hours (Table) 06/10/19 06/10/19 Range/Units 09:20 09:20 Hgb 12.9 L (13.0-17.5) gm/dL RDW 15.6 H (11.5-15.5) % Creatinine 1.33 H (0.66-1.25) mg/dL Glucose 133 H (74-99) mg/dL Calcium 8.0 L (8.4-10.2) mg/dL Microbiology - Last 24 Hours (Table) 06/08/19 15:36 Gram Stain - Final Leg - Left Wound Culture - Final Staphylococcus aureus 06/08/19 12:08 Blood Culture - Preliminary Blood No Growth after 48 hours 06/09/19 18:30 Tissue Culture - Preliminary Thigh - Right 06/09/19 18:30 Anaerobic Culture - Preliminary Thigh - Right Laboratory Results WBC 9.3 k/uL (3.8-10.6) 06/10/19 09:20 RBC 4.72 m/uL (4.30-5.90) 06/10/19 09:20 Hgb 12.9 gm/dL (13.0-17.5) L 06/10/19 09:20 Hct 41.1 % (39.0-53.0) 06/10/19 09:20 MCV 87.1 fL (80.0-100.0) 06/10/19 09:20 MCH 27.4 pg (25.0-35.0) 06/10/19 09:20 MCHC 31.5 g/dL (31.0-37.0) 06/10/19 09:20 RDW 15.6 % (11.5-15.5) H 06/10/19 09:20 Plt Count 390 k/uL (150-450) 06/10/19 09:20 Neutrophils % 74 % 06/08/19 12:08 Lymphocytes % 13 % 06/08/19 12:08 Monocytes % 5 % 06/08/19 12:08 Eosinophils % 5 % 06/08/19 12:08 Basophils % 0 % 06/08/19 12:08 Neutrophils # 9.1 k/uL (1.3-7.7) H 06/08/19 12:08 Lymphocytes # 1.6 k/uL (1.0-4.8) 06/08/19 12:08 Monocytes # 0.7 k/uL (0-1.0) 06/08/19 12:08 Eosinophils # 0.6 k/uL (0-0.7) 06/08/19 12:08 Basophils # 0.1 k/uL (0-0.2) 06/08/19 12:08 Hypochromasia Moderate 06/10/19 09:20 ESR 54 mm/hr (0-15) H 06/08/19 12:08 Sodium 138 mmol/L (137-145) 06/10/19 09:20 Potassium 4.3 mmol/L (3.5-5.1) 06/10/19 09:20 Chloride 106 mmol/L (98-107) 06/10/19 09:20 Carbon Dioxide 24 mmol/L (22-30) 06/10/19 09:20 Anion Gap 8 mmol/L 06/10/19 09:20 BUN 15 mg/dL (9-20) 06/10/19 09:20 Creatinine 1.33 mg/dL (0.66-1.25) H 06/10/19 09:20 Est GFR (CKD-EPI)AfAm 68 (>60 ml/min/1.73 sqM) 06/10/19 09:20 Est GFR (CKD-EPI)NonAf 59 (>60 ml/min/1.73 sqM) 06/10/19 09:20 Glucose 133 mg/dL (74-99) H 06/10/19 09:20 Plasma Lactic Acid Luis 1.8 mmol/L (0.7-2.0) 06/08/19 12:08 Calcium 8.0 mg/dL (8.4-10.2) L 06/10/19 09:20 Total Bilirubin 0.6 mg/dL (0.2-1.3) 06/08/19 12:08 AST 27 U/L (17-59) 06/08/19 12:08 ALT 21 U/L (21-72) 06/08/19 12:08 Alkaline Phosphatase 123 U/L (38-126) 06/08/19 12:08 C-Reactive Protein 82.4 mg/L (<10.0) H 06/08/19 12:08 Total Protein 6.6 g/dL (6.3-8.2) 06/08/19 12:08 Albumin 3.4 g/dL (3.5-5.0) L 06/08/19 12:08 Microbiology 06/08/19 15:36 Leg - Left Gram Stain - Final 06/08/19 15:36 Leg - Left Wound Culture - Final Staphylococcus aureus 06/08/19 12:08 Blood Blood Culture - Preliminary No Growth after 48 hours 06/09/19 18:30 Thigh - Right Tissue Culture - Preliminary 06/09/19 18:30 Thigh - Right Anaerobic Culture - Preliminary Assessment and Plan (1) Abscess of right leg Narrative/Plan: 51-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 Inability to drain the home setting and he suddenly had increasing pain and swelling erythema typify excessively sought attention at the hospital. Incision and drainage was attempted in the ER that was limited because of the need for surgical intervention. The patient will have a dressing applied with foam and EBD utilize some mesh garments try to keep it in place. Antibiotic therapy was started with vancomycin we'll also get and Rocephin for now until we have further data. Computed tomography scan does show evidence of abscess he will need surgical incision and drainage to be performed. Surgical consult is in process. We'll update his tetanus vaccine. When a multivitamin with [employer] adequate protein intake. For the chronic distal ulceration we will utilize therahoney to be changed every other day. Leukocytosis is due to sig nificant infection and abscess to the right thigh which is associated with some lymphadenopathy also. The summer the patient is doing well status post surgical intervention. There is evidence of the large open ulceration with fat necrosis the base. Some of this was gently debrided away with mechanical debridement. In bleeding occurred. The wound is redressed and dressing is buttoned place. Final cultures become available and MSSA is isolated antibiotic therapy is now descalated to Ancef at 2 g IV piggyback every 8 hours Once necrosis the bases improved will be a candidate for negative pressure therapy which will be arranged home care. With the extensive nature this infection at this time would consider outpatient intravenous antibiotic therapy hopefully in his home setting. Leukocytosis is starting to show some improvement No other significant ulcerations are seen. At the time of the surgery no necrotizing infection was noted. Current Visit: Yes Status: Acute Code(s): L02.415 - CUTANEOUS ABSCESS OF RIGHT LOWER LIMB SNOMED Code(s): 798802961 (2) Cellulitis of leg, right Current Visit: Yes Status: Acute Code(s): L03.115 - CELLULITIS OF RIGHT LOWER LIMB SNOMED Code(s): 526567138 (3) Varicose veins of both legs with edema Current Visit: No Status: Acute Code(s): I83.893 - VARICOSE VEINS OF BI LOW EXTREM W OTH COMPLICATIONS SNOMED Code(s): 22520460
--- NOTE | 2019-06-10 23:01 | P.PN ---
Progress Note - Text Progress Note Date: 06/10/19 Chief Complaint: Right thigh abscess History of presenting complaint: This is a 59-year-old patient of Dr. Casey Varner. Chronic stable medical conditions include congestive heart failure EF 40%, secondary portal hypertension, COPD, GERD, Rakesh arthritis, varicose vein been followed by Dr. Rosario, atrial fibrillation. Patient about 2 months ago noticed a boil on the inner part of the right thigh. It continued to grow. And continued to enlarge. Patient had some pain but is able to get around. 4 days ago he broke down into what appeared to be no abscess. Denies any obvious fever and chills. The blister was taken off in the ER. Cultures were sent. Patient's on IV ceftriaxone and vancomycin. Infectious disease and surgery was consulted. On June 09-Dr. Walsh did operative I&D of the right thigh abscess. It did not go below the fascia . No muscular or tendons were involved.. Today-discussed the results of Dr. Walsh this morning. Dr. Green did clean the wound. Otherwise patient tolerated diet.. Review of systems: Was done for constitutional, cardiovascular, GI, pulmonary. relevant finding as above Active Medications Acetaminophen (Tylenol Tab) 650 mg PO Q6HR PRN PRN Reason: Mild Pain or Fever > 100.5 Atorvastatin Calcium (Lipitor) 20 mg PO DAILY [facility] Last Admin: 06/10/19 07:44 Dose: 20 mg Documented by: Diphenhydramine HCl (Benadryl) 25 mg PO Q6H [facility] Last Admin: 06/10/19 21:25 Dose: 25 mg Documented by: Hydromorphone HCl (Dilaudid) 1 mg IM Q3HR PRN PRN Reason: Pain Last Admin: 06/10/19 21:30 Dose: 1 mg Documented by: Sodium Chloride (Saline 0.9%) 1,000 mls @ 60 mls/hr IV .[id number] [facility] Last Admin: 06/10/19 17:35 Dose: 60 mls/hr Documented by: Cefazolin Sodium 2 gm/ Sodium (Chloride) 50 mls @ 100 mls/hr IVPB Q8HR [facility] Lisinopril (Zestril) 10 mg PO HS [facility] Last Admin: 06/10/19 20:12 Dose: Not Given Documented by: Metoprolol Tartrate (Lopressor) 25 mg PO BID [facility] Last Admin: 06/10/19 21:25 Dose: 25 mg Documented by: Multivitamins (Theragran) 1 each PO DAILY [facility] Last Admin: 06/10/19 07:45 Dose: 1 each Documented by: Naloxone HCl (Narcan) 0.2 mg IV Q2M PRN PRN Reason: Opioid Reversal Ondansetron HCl (Zofran) 4 mg IVP Q8HR PRN PRN Reason: Nausea And Vomiting Spironolactone (Aldactone) 25 mg PO DAILY [facility] Last Admin: 06/10/19 07:45 Dose: 25 mg Documented by: Tramadol HCl (Ultram) 50 mg PO Q6H PRN PRN Reason: Moderate Pain Last Admin: 06/10/19 16:39 Dose: 50 mg Documented by: Physical examination: VITAL SIGNS: 37.4, 86, 18, 11 3/71, 98% room air GENERAL: Sitting at the edge of bed, comfortable EYES: Pupils equal. Conjunctiva normal. HEENT: External appearance of nose and ears normal, oral cavity grossly normal. NECK: JVD not raised; masses not palpable. HEART: First and second heart sounds are normal; some edema. LUNGS: Respiratory rate normal; decreased breath sounds. ABDOMEN: Soft, nontender, liver spleen not palpable, no masses palpable. PSYCH: Alert and oriented x3; mood and affect normal. EXTREMITY: Dressing over the wound, surrounding redness INVESTIGATIONS, reviewed in the clinical context: White count 9.3 hemoglobin 12.9 creatinine 1.33 Assessment: -Right thigh abscess status post I&D -Chronic congestive heart failure from systolic dysfunction EF 40% -Secondary probably hypertension -COPD in a current smoker -GERD -Primary osteoarthritis -Large varicose veins of lower extremity -History of atrial fibrillation Plan: Discussed with Dr. Walsh. Patient to have wound care. Will probably need a wound VAC down the road. Repeat BMP.
[2019-06-11] MEDS: diphenhydrAMINE 25 MG CAP PO SCH ×4 (02:26→21:49)
[2019-06-11] MEDS: HYDROmorphone 1 MG/ML 1 ML SYRINGE IM PRN (04:20)
[2019-06-11] MEDS: METOPROLOL TARTRATE 25 MG TAB PO SCH ×2 (08:35→21:49)
[2019-06-11] MEDS: ATORVASTATIN 20 MG TAB PO SCH (08:35)
[2019-06-11] MEDS: SODIUM CHLORIDE 0.9% 1,000 ML IV SCH ×2 (08:36→21:50)
[2019-06-11] MEDS: MULTIVITAMINS, THERA 1 EACH TAB PO SCH (08:36)
[2019-06-11] MEDS: traMADol 50 MG TAB PO PRN (08:36)
[2019-06-11] MEDS ORDERED: HYDROmorphone 1 MG/ML 1 ML SYRINGE IVP PRN (08:52)
[2019-06-11] MEDS ORDERED: HYDROcodone/APAP 5-325MG 1 EACH TAB PO PRN (08:52)
[2019-06-11 09:36] LABS: Calcium 8.5 mg/dL (8.4-10.2); Potassium 4.3 mmol/L (3.5-5.1)
--- NOTE | 2019-06-11 10:11 | P.PN ---
Subjective Progress Note Date: 06/11/19 CHIEF COMPLAINT: Right thigh abscess HISTORY OF PRESENT ILLNESS: Patient is status post debridement of right medial thigh abscess. Patient examined at the bedside. He reports some discomfort to right lower extremity this morning. Vital signs stable. He is afebrile. PHYSICAL EXAM: VITAL SIGNS: Reviewed. GENERAL: Well-developed in no acute distress. HEENT: No sclera icterus. Extraocular movements grossly intact. Moist buccal mucosa. Head is atraumatic, normocephalic. ABDOMEN: Soft. Nondistended. Nontender. NEUROLOGIC: Alert and oriented. Cranial nerves II through XII grossly intact. SKIN: Dressing to right leg clean dry intact. Kehinde wrap noted. ASSESSMENT: 1. Right thigh abscess, necrotizing infection with surrounding cellulitis PLAN: Continue daily dressing changes. Pack wound with wet to dry Kerlix. Cover with ABD and wrap with KEHINDE bandage Patient will require wound vac therapy in the near future. Will defer timing of wound vac to Dr. Green Continue antibiotics per Dr. Green Nurse practitioner note has been reviewed by physician. Signing provider agrees with the documented findings, assessment, and plan of care. Objective - Vital Signs Vital signs: Vital Signs Temp 97.8 F 06/11/19 06:00 Pulse 79 06/11/19 06:00 Resp 18 06/11/19 06:00 BP 117/77 06/11/19 06:00 Pulse Ox 97 06/11/19 06:00 Intake & Output 06/10/19 06/11/19 06/11/19 18:59 06:59 18:59 Intake Total 1000 200 Balance 1000 200 Weight 137.5 kg Intake: Oral 1000 200 Other: Voiding Method Toilet # Voids 3 2 - Labs CBC & Chem 7: 06/10/19 09:20 06/11/19 08:51 Labs: Abnormal Lab Results - Last 24 Hours (Table) 06/10/19 06/11/19 Range/Units 09:20 08:51 Creatinine 1.33 H (0.66-1.25) mg/dL Glucose 133 H 121 H (74-99) mg/dL Calcium 8.0 L (8.4-10.2) mg/dL Microbiology - Last 24 Hours (Table) 06/09/19 18:30 Gram Stain - Preliminary Thigh - Right Tissue Culture - Preliminary Presumptive Staph aureus 06/08/19 15:36 Gram Stain - Final Leg - Left Wound Culture - Final Staphylococcus aureus 06/08/19 12:08 Blood Culture - Preliminary Blood No Growth after 48 hours 06/09/19 18:30 Anaerobic Culture - Preliminary Thigh - Right
[2019-06-11] MEDS ORDERED: ASPIRIN 325 MG TAB PO PRN (10:29)
[2019-06-11] MEDS ORDERED: VANCOMYCIN TROUGH DUE 1 EACH MISC MISCELLANE ONE (21:00)
[2019-06-11] MEDS: LISINOPRIL 10 MG TAB PO SCH (21:49)
[2019-06-11] MEDS: APIXABAN 2.5 MG TABLET PO SCH (21:49)
[2019-06-12] MEDS: diphenhydrAMINE 25 MG CAP PO SCH ×4 (02:56→20:07)
[2019-06-12] MEDS: SODIUM CHLORIDE 0.9% 1,000 ML IV SCH ×2 (05:19→15:36)
[2019-06-12] MEDS: ATORVASTATIN 20 MG TAB PO SCH (08:25)
[2019-06-12] MEDS: MULTIVITAMINS, THERA 1 EACH TAB PO SCH (08:25)
[2019-06-12] MEDS: APIXABAN 2.5 MG TABLET PO SCH ×2 (08:25→20:07)
[2019-06-12] MEDS: METOPROLOL TARTRATE 25 MG TAB PO SCH ×2 (08:25→20:07)
[2019-06-12 08:52] LABS: African American GFR (CKD) >90 (>60 ml/min/1.73 sqM); Anion Gap 7 mmol/L; Blood Urea Nitrogen 12 mg/dL (9-20); Calcium 9.1 mg/dL (8.4-10.2); Carbon Dioxide 27 mmol/L (22-30); Chloride 104 mmol/L (98-107); Glucose 154 mg/dL (74-99); Non-African American GFR(CKD) 78 (>60 ml/min/1.73 sqM); Potassium 4.7 mmol/L (3.5-5.1); Sodium 138 mmol/L (137-145)
--- NOTE | 2019-06-12 11:51 | P.PN ---
Subjective Progress Note Date: 06/12/19 CHIEF COMPLAINT: Right lower extremity abscess HISTORY OF PRESENT ILLNESS: The patient is a 59-year-old male status post drainage of complex right lower extremity cellulitis with abscess. He feels we ll. No fevers or chills. ROS: No reports of nausea and vomiting. No fevers or chills. No new chest pain. PHYSICAL EXAM: VITAL SIGNS: Reviewed CONSTITUTIONAL: Well developed and in no acute distress. EYES: Conjuctivae without sclera icterus. Extraocular movements grossly intact. HEAD, EARS, NOSE, THROAT: Moist buccal mucosa. Head is atraumatic, normocephalic. Hears conversational speech. No nasal drainage. RESPIRATORY: Non-labored respirations and equal bilateral excursions. CARDIOVASCULAR: Palpable 2+ radial pulses. ABDOMEN: No peritonitis. MUSCULOSKELETAL: Dressing along right lower leg dry and intact with 1 cm serosanguineous drainage. 2+ lower extremity edema. SKIN: Good skin turgor. Well perfused. NEUROLOGIC: Cranial nerves I through XII grossly intact. No focal or l ateralizing signs. PSYCH: Appropriate affect. Alert and oriented to person, place and time. CLINICAL LABS: White blood cell count normal. MSSA sensitive staph infection ASSESSMENT: 1. Right lower extremity cellulitis with abscess status post drainage PLAN: 1. For swelling of the right lower extremity, recommend leg elevation above the heart. 2. At this time IV antibiotics with wound care management per infectious disease Objective - Vital Signs Vital signs: Vital Signs Temp 97.5 F L 06/12/19 04:39 Pulse 81 06/12/19 04:39 Resp 17 06/12/19 04:39 BP 117/74 06/12/19 04:39 Pulse Ox 98 06/12/19 04:39 Intake & Output 06/11/19 06/12/19 06/12/19 18:59 06:59 18:59 Intake Total 200 Balance 200 Weight 137.5 kg 145.1 kg Intake: Oral 200 Other: # Voids 2 2 # Bowel Movements 1 - Labs CBC & Chem 7: 06/10/19 09:20 06/12/19 08:00 Labs: Abnormal Lab Results - Last 24 Hours (Table) 06/12/19 Range/Units 08:00 Glucose 154 H (74-99) mg/dL Microbiology - Last 24 Hours (Table) 06/08/19 12:08 Blood Culture - Preliminary Blood No Growth after 72 hours 06/09/19 18:30 Gram Stain - Preliminary Thigh - Right Tissue Culture - Preliminary Presumptive Staph aureus Assessment and Plan (1) MSSA (methicillin susceptible Staphylococcus aureus) infection Current Visit: Yes Status: Acute Code(s): A49.01 - METHICILLIN SUSCEP STAPH INFECTION, UNSP SITE SNOMED Code(s): 068256464 (2) Abscess of right leg Current Visit: Yes Status: Acute Code(s): L02.415 - CUTANEOUS ABSCESS OF RIGHT LOWER LIMB SNOMED Code(s): 570587138 (3) Cellulitis of leg, right Current Visit: Yes Status: Acute Code(s): L03.115 - CELLULITIS OF RIGHT LOWER LIMB SNOMED Code(s): 299768078
--- NOTE | 2019-06-12 13:45 | P.PN ---
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 He relates no significant trauma or injury to this site. He has no cuts or bruises that occurred at work and in no injury from animal products her bones to the thigh. He treated it locally but a pustule formed he had no ability to have a draining test he presented to the emergency center. There is noticed to have the large pustule with significant surrounding erythema some tissue necrosis and a large area of cellulitis of right thigh swelling. With this he was admitted to hospital for further evaluation. Surgical consult has been requ ested. Computed tomography scan shows evidence of the significant abscess. The patient feels quite poorly she's had chills without rigors and believes he had a fever. It has been draining since the attempt for incision and drainage in the emergency center. The material is mostly serosanguineous and minimally purulent. He does not know when his last tetanus shot was. He does relate that he was seen by Dr. Devine regarding his varicose veins and he contemplated laser surgical repair but this never came to fruition. 06/10/2019 the patient is feeling relatively well and does voice his standing concerns to the extensive nature the wound after the surgical debridement that occurred. He had no idea that the process on his leg would be so significant. He is having some discomfort but is not severe. He is well known to the vascular surgeon from the past evaluations. At this time is having no fevers, chills or rigors of pain at the site he is doing modestly well. His appetite is adequate. He is having no nausea or emesis, is having no diarrhea and other difficulties with antibiotic therapy. 06/11/2019 the patient is feeling a bit better today, he did have some significant pain after debridement wound change. He is fortunately having no further fevers or chills. He is denying other new symptoms. Objective - Vital Signs Vital signs: Vital Signs Temp 97.5 F L 06/12/19 04:39 Pulse 81 06/12/19 04:39 Resp 17 06/12/19 04:39 BP 117/74 06/12/19 04:39 Pulse Ox 98 06/12/19 04:39 Intake & Output 06/11/19 06/12/1906/12/19 18:59 06:59 18:59 Intake Total 200 Balance 200 Weight 137.5 kg 145.1 kg Intake: Oral 200 Other: # Voids 2 2 # Bowel Movements 1 - Exam HEENT: Anicteric conjunctiva are pink and moist nasal mucosa grossly intact without significant lesions, there is no thrush. Poor dentition Neck: The neck is supple without significant lymphadenopathy or thyromegaly. Lungs: They're symmetrical bilateral air entry there are expiratory wheezes right the lung la but no jayesh bronchial sounds there is no dullness or egophony Heart: Regular rate and rhythm with an audible S1-S2, no S3 no S4. There is no significant murmur click or rub, PMI was nondisplaced. Abdomen: Obese, Positive bowel sounds soft and nontender without palpable masses or organomegaly. There was no guarding or rebound. Extremities: The upper extremities have excellent pulses they are symmetric, no significant petechiae or telangiectasia. No splinter hemorrhages were noted. The left lower extremities reveal evidence of some chronic lower extremity edema. Thel eft limbs reveal the extensive varicosities but no open ul ceration. The reduction reveals the extensive surgical wound in the medial aspect of the thigh. There is evidence of a stinging amount of necrotic fat at the base of the ulceration. There was cautery that occurred and approximately a handful of necrotic fat was easily removed from the base of the ulceration with a dressing change. It is packed with a saline dressing. The surrounding erythema seems to be slightly improved the tenderness of the area persists. There is evidence of easily palpable lymphadenopathy to the right groin. No other abnormal lymph nodes are noted. The right pretibial area has evidence of some chronic ulceration it's also noted. It is not draining and is nontender. The peripheral pulses are palpable to the bilateral feet with adequate capillary refill. Neuro: Awake alert oriented to person place and time. There are no acute new gross focal sensory motor deficits. - Labs CBC & Chem 7: 06/10/19 09:20 06/12/19 08:00 Labs: Abnormal Lab Results - Last 24 Hours (Table) 06/12/19 Range/Units 08:00 Glucose 154 H (74-99) mg/dL Microbiology - Last 24 Hours (Table) 06/09/19 18:30 Gram Stain - Final Thigh - Right Tissue Culture - Final Staphylococcus aureus 06/08/19 12:08 Blood Culture - Preliminary Blood No Growth after 72 hours Laboratory Results WBC 9.3 k/uL (3.8-10.6) 06/10/19 09:20 RBC 4.72 m/uL (4.30-5.90) 06/10/19 09:20 Hgb 12.9 gm/dL (13.0-17.5) L 06/10/19 09:20 Hct 41.1 % (39.0-53.0) 06/10/19 09:20 MCV 87.1 fL (80.0-100.0) 06/10/19 09:20 MCH 27.4 pg (25.0-35.0) 06/10/19 09:20 MCHC 31.5 g/dL (31.0-37.0) 06/10/19 09:20 RDW 15.6 % (11.5-15.5) H 06/10/19 09:20 Plt Count 390 k/uL (150-450) 06/10/19 09:20 Neutrophils % 74 % 06/08/19 12:08 Lymphocytes % 13 % 06/08/19 12:08 Monocytes % 5 % 06/08/19 12:08 Eosinophils % 5 % 06/08/19 12:08 Basophils % 0 % 06/08/19 12:08 Neutrophils # 9.1 k/uL (1.3-7.7) H 06/08/19 12:08 Lymphocytes # 1.6 k/uL (1.0-4.8) 06/08/19 12:08 Monocytes # 0.7 k/uL (0-1.0) 06/08/19 12:08 Eosinophils # 0.6 k/uL (0-0.7) 06/08/19 12:08 Basophils # 0.1 k/uL (0-0.2) 06/08/19 12:08 Hypochromasia Moderate 06/10/19 09:20 ESR 54 mm/hr (0-15) H 06/08/19 12:08 Sodium 138 mmol/L (137-145) 06/12/19 08:00 Potassium 4.7 mmol/L (3.5-5.1) 06/12/19 08:00 Chloride 104 mmol/L (98-107) 06/12/19 08:00 Carbon Dioxide 27 mmol/L (22-30) 06/12/19 08:00 Anion Gap 7 mmol/L 06/12/19 08:00 BUN 12 mg/dL (9-20) 06/12/19 08:00 Creatinine 1.05 mg/dL (0.66-1.25) 06/12/19 08:00 Est GFR (CKD-EPI)AfAm >90 (>60 ml/min/1.73 sqM) 06/12/19 08:00 Est GFR (CKD-EPI)NonAf 78 (>60 ml/min/1.73 sqM) 06/12/19 08:00 Glucose 154 mg/dL (74-99) H 06/12/19 08:00 Plasma Lactic Acid Luis 1.8 mmol/L (0.7-2.0) 06/08/19 12:08 Calcium 9.1 mg/dL (8.4-10.2) 06/12/19 08:00 Total Bilirubin 0.6 mg/dL (0.2-1.3) 06/08/19 12:08 AST 27 U/L (17-59) 06/08/19 12:08 ALT 21 U/L (21-72) 06/08/19 12:08 Alkaline Phosphatase 123 U/L (38-126) 06/08/19 12:08 C-Reactive Protein 82.4 mg/L (<10.0) H 06/08/19 12:08 Total Protein 6.6 g/dL (6.3-8.2) 06/08/19 12:08 Albumin 3.4 g/dL (3.5-5.0) L 06/08/19 12:08 Microbiology 06/09/19 18:30 Thigh - Right Gram Stain - Final 06/09/19 18:30 Thigh - Right Tissue Culture - Final Staphylococcus aureus 06/08/19 12:08 Blood Blood Culture - Preliminary No Growth after 72 hours 06/08/19 15:36 Leg - Left Gram Stain - Final 06/08/19 15:36 Leg - Left Wound Culture - Final Staphylococcus aureus 06/09/19 18:30 Thigh - Right Anaerobic Culture - Preliminary Assessment and Plan (1) Abscess of right leg Narrative/Plan: 51-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 Inability to drain the home setting and he suddenly had increasing pain and swelling erythema typify excessively sought attention at the hospital. Incision and drainage was attempted in the ER that was limited because of the need for surgical intervention. The patient will have a dressing applied with foam and EBD utilize some mesh garments try to keep it in place. Antibiotic therapy was started with vancomycin we'll also get and Rocephin for now until we have further data. Computed tomography scan does show evidence of abscess he will need surgical incision and drainage to be performed. Surgical consult is in process. We'll update his tetanus vaccine. When a multivitamin with [employer] adequate protein intake. For the chronic distal ulceration we will utilize therahoney to be changed every other day. Leukocytosis is due to significant infection and abscess to the right thigh which is associated with some lymphadenopathy also. The summer the patient is doing well status post surgical intervention. There is evidence of the large open ulceration with fat necrosis the base. Some of this was gently debrided away with mechanical debridement. In bleeding occurred. The wound is redressed and dressing is buttoned place. Final cultures become available and MSSA is isolated antibiotic therapy is now descalated to Ancef at 2 g IV piggyback every 8 hours Once necrosis the bases improved will be a candidate for negative pressure therapy which will be arranged home care. With the extensive nature this infection at this time would consider outpatient intravenous antibiotic therapy hopefully in his home setting. Leukocytosis is starting to show some improvement No other significant ulcerations are seen. At the time of the surgery no necrotizing infection was noted. 06/11/2019 the patient is feeling better today. His pain has responded well to current pain medications after the debridement and local wound care changes. He is without further fevers. Once is evidence of the improvement of the necrosis to the base woman work with the team to try to get a negative pressure therapy system in place and have that also for home. Emesis he is isolated in his antibiotic therapy was changed to Ancef. Is again somewhat likely that he may require outpatient intravenous antibiotic therapy. There is also potentially need to come to the office. He over does have significant psychosocial difficulties this discharge plan could end up being very complicated. Current Visit: Yes Status: Acute Code(s): L02.415 - CUTANEOUS ABSCESS OF RIGHT LOWER LIMB SNOMED Code(s): 780713653 (2) Cellulitis of leg, right Current Visit: Yes Status: Acute Code(s): L03.115 - CELLULITIS OF RIGHT LOWER LIMB SNOMED Code(s): 187522317 (3) Varicose veins of both legs with edema Current Visit: No Status: Acute Code(s): I83.893 - VARICOSE VEINS OF BI LOW EXTREM W OTH COMPLICATIONS SNOMED Code(s): 06900528
[2019-06-12] MEDS: LISINOPRIL 10 MG TAB PO SCH (20:07)
[2019-06-13] MEDS: SODIUM CHLORIDE 0.9% 1,000 ML IV SCH ×3 (01:30→21:57)
[2019-06-13] MEDS: diphenhydrAMINE 25 MG CAP PO SCH ×4 (03:08→20:44)
[2019-06-13 07:58] LABS: Basophils % (A) 0 %; Eosinophils # (A) 0.7 k/uL (0-0.7); Eosinophils % (A) 8 %; HCT 43.9 % (39.0-53.0); HGB 13.8 gm/dL (13.0-17.5); Hypochromasia Moderate; Lymphocytes # (A) 1.2 k/uL (1.0-4.8); Lymphocytes % (A) 14 %; MCH 27.2 pg (25.0-35.0); MCHC 31.4 g/dL (31.0-37.0); MCV 86.4 fL (80.0-100.0); Mean Platelet Volume 7.3; Monocytes # (A) 0.3 k/uL (0-1.0); Monocytes % (A) 3 %; Neutrophils % (A) 72 %; Platelet Count 465 k/uL (150-450); RBC 5.08 m/uL (4.30-5.90); RDW 15.6 % (11.5-15.5); WBC 8.4 k/uL (3.8-10.6)
[2019-06-13 08:21] LABS: Calcium 9.3 mg/dL (8.4-10.2); Potassium 4.8 mmol/L (3.5-5.1)
[2019-06-13] MEDS: MULTIVITAMINS, THERA 1 EACH TAB PO SCH (08:45)
[2019-06-13] MEDS: ATORVASTATIN 20 MG TAB PO SCH (08:45)
[2019-06-13] MEDS: METOPROLOL TARTRATE 25 MG TAB PO SCH ×2 (08:45→20:44)
[2019-06-13] MEDS: APIXABAN 2.5 MG TABLET PO SCH ×2 (08:45→20:44)
--- NOTE | 2019-06-13 11:27 | P.PN ---
Subjective Progress Note Date: 06/11/19 Principal diagnosis: Right thigh abscess This is a 59-year-old patient of Dr. Casey Varner. Chronic stable medical conditions include congestive heart failure EF 40%, secondary portal hypertension, COPD, GERD, Rakesh arthritis, varicose vein been followed by Dr. Rosario, atrial fibrillation. Patient about 2 months ago noticed a boil on the inner part of the right thigh. It continued to grow. And continued to enlarge. Patient had some pain but is able to get around. 4 days ago he broke down into what appeared to be no abscess. Denies any obvious fever and chills. The blister was taken off in the ER. Cultures were sent. Patient's on IV ceftriaxone and vancomycin. Infectious disease and surgery was consulted. On June 09-Dr. Walsh did operative I&D of the right thigh abscess. It did not go below the fascia . No muscular or tendons were involved.. Dr. Green did clean the wound. Otherwise patient tolerated diet.. 06/11/2019 Patient is complaining of right lower extremity pain and pain at the abscess site. Status post I&D. Currently being continued on antibiotics. Follow-up culture reports and ID is on board. Patient has been afebrile. No complaints of chest pain or shortness of breath. No nausea vomiting or abdominal pain. Current medications reviewed. Objective - Vital Signs Vital signs: Vital Signs Temp 98.1 F 06/11/19 15:00 Pulse 70 06/11/19 15:00 Resp 16 06/11/19 15:00 BP 121/79 06/11/19 15:00 Pulse Ox 99 06/11/19 15:00 Intake & Output 06/10/19 06/11/19 06/11/19 18:59 06:59 18:59 Intake Total 1000 200 Balance 1000 200 Weight 137.5 kg Intake: Oral 1000 200 Other: Voiding Method Toilet # Voids 3 2 2 # Bowel Movements 1 - Exam GENERAL: Sitting at the edge of bed, comfortable EYES: Pupils equal. Conjunctiva normal. HEENT: External appearance of nose and ears normal, oral cavity grossly normal. NECK: JVD not raised; masses not palpable. HEART: First and second heart sounds are normal; some edema. LUNGS: Respiratory rate normal; decreased breath sounds. ABDOMEN: Soft, nontender, liver spleen not palpable, no masses palpable. PSYCH: Alert and oriented x3; mood and affect normal. EXTREMITY: Dressing over the wound, surrounding redness - Labs CBC & Chem 7: 06/13/19 07:44 06/13/19 07:44 Labs: Abnormal Lab Results - Last 24 Hours (Table) 06/11/19 Range/Units 08:51 Glucose 121 H (74-99) mg/dL Microbiology - Last 24 Hours (Table) 06/08/19 12:08 Blood Culture - Preliminary Blood No Growth after 72 hours 06/09/19 18:30 Gram Stain - Preliminary Thigh - Right Tissue Culture - Preliminary Presumptive Staph aureus 06/08/19 15:36 Gram Stain - Final Leg - Left Wound Culture - Final Staphylococcus aureus Assessment and Plan Assessment: -Right thigh abscess with surrounding cellulitis. status post I&D -Chronic congestive heart failure from systolic dysfunction EF 40% -Secondary probably hypertension -COPD in a current smoker -GERD -Primary osteoarthritis -Large varicose veins of lower extremity -History of atrial fibrillation Plan: General surgery is following. Continue with IV antibiotics.. Patient to have wound care. Will probably need a wound VAC down the road. Repeat BMP. Time with Patient: Greater than 30
--- NOTE | 2019-06-13 11:29 | P.PN ---
Subjective Progress Note Date: 06/12/19 Principal diagnosis: Right thigh abscess This is a 59-year-old patient of Dr. Casey Varner. Chronic stable medical conditions include congestive heart failure EF 40%, secondary portal hypertension, COPD, GERD, Rakesh arthritis, varicose vein been followed by Dr. Rosario, atrial fibrillation. Patient about 2 months ago noticed a boil on the inner part of the right thigh. It continued to grow. And continued to enlarge. Patient had some pain but is able to get around. 4 days ago he broke down into what appeared to be no abscess. Denies any obvious fever and chills. The blister was taken off in the ER. Cultures were sent. Patient's on IV ceftriaxone and vancomycin. Infectious disease and surgery was consulted. On June 09-Dr. Walsh did operative I&D of the right thigh abscess. It did not go below the fascia . No muscular or tendons were involved.. Dr. Green did clean the wound. Otherwise patient tolerated diet.. 06/11/2019 Patient is complaining of right lower extremity pain and pain at the abscess site. Status post I&D. Currently being continued on antibiotics. Follow-up culture reports and ID is on board. Patient has been afebrile. No complaints of chest pain or shortness of breath. No nausea vomiting or abdominal pain. 06 12 2019 Patient says that he feels better today. Right leg pain is improving. Wound dressing was done. Continued on IV antibiotics in form of cefazolin. Follow-up final wound cultures. No complaints of chest pain or shortness of breath. Patient has been afebrile. No headache or dizziness or lightheadedness. Current medications reviewed. Objective - Vital Signs Vital signs: Vital Signs Temp 97.4 F L 06/12/19 21:12 Pulse 84 06/12/19 21:12 Resp 18 06/12/19 21:12 BP 119/79 06/12/19 21:12 Pulse Ox 98 06/12/19 21:12 Intake & Output 06/12/19 06/12/19 06/13/19 06:59 18:59 06:59 Intake Total 50 50 Balance 50 50 Weight 145.1 kg Intake: Intake, IV Titration 50 50 Amount ceFAZolin 2 gm In Sodium 50 50 Chloride 0.9% 50 ml @ 100 mls/hr IVPB Q8H [facility] Rx#: [id number] Other: # Voids 2 - Exam GENERAL: Sitting at the edge of bed, comfortable EYES: Pupils equal. Conjunctiva normal. HEENT: External appearance of nose and ears normal, oral cavity grossly normal. NECK: JVD not raised; masses not palpable. HEART: First and second heart sounds are normal; some edema. LUNGS: Respiratory rate normal; decreased breath sounds. ABDOMEN: Soft, nontender, liver spleen not palpable, no masses palpable. PSYCH: Alert and oriented x3; mood and affect normal. EXTREMITY: Dressing over the wound, surrounding redness - Labs CBC & Chem 7: 06/13/19 07:44 06/13/19 07:44 Labs: Abnormal Lab Results - Last 24 Hours (Table) 06/12/19 Range/Units 08:00 Glucose 154 H (74-99) mg/dL Microbiology - Last 24 Hours (Table) 06/09/19 18:30 Anaerobic Culture - Preliminary Thigh - Right 06/08/19 12:08 Blood Culture - Preliminary Blood No Growth after 96 hours 06/09/19 18:30 Gram Stain - Final Thigh - Right Tissue Culture - Final Staphylococcus aureus Assessment and Plan Assessment: -Right thigh abscess with surrounding cellulitis. status post I&D -Chronic congestive heart failure from systolic dysfunction EF 40% -Secondary probably hypertension -COPD in a current smoker -GERD -Primary osteoarthritis -Large varicose veins of lower extremity -History of atrial fibrillation Plan: General surgery is following. Continue with IV antibiotics.. Patient to have wound care. Will probably need a wound VAC down the road. Repeat BMP. Time with Patient: Greater than 30
--- NOTE | 2019-06-13 11:35 | P.PN ---
Subjective Progress Note Date: 06/13/19 CHIEF COMPLAINT: Right lower extremity abscess HISTORY OF PRESENT ILLNESS: The patient is a 59-year-old male status post drainage of complex right lower extremity cellulitis with abscess. He has no n ew complaints. He has been elevating his legs especially when lying down. He is currently sitting up at bedside. No reports of increased pain otherwise. ROS: No reports of nausea and vomiting. No fevers or chills. No new chest pain. PHYSICAL EXAM: VITAL SIGNS: Reviewed CONSTITUTIONAL: Well developed and in no acute distress. EYES: Conjuctivae without sclera icterus. Extraocular movements grossly intact. HEAD, EARS, NOSE, THROAT: Moist buccal mucosa. Head is atraumatic, normocephalic. Hears conversational speech. No nasal drainage. RESPIRATORY: Non-labored respirations and equal bilateral excursions. CARDIOVASCULAR: Palpable 2+ radial pulses. ABDOMEN: No peritonitis. MUSCULOSKELETAL: Dressing along right lower leg dry and intact. 2+ lower extremity edema. SKIN: Good skin turgor. Well perfused. NEUROLOGIC: Cranial nerves I through XII grossly intact. No focal or latera lizing signs. PSYCH: Appropriate affect. Alert and oriented to person, place and time. CLINICAL LABS: White blood cell count normal. MSSA sensitive staph infection ASSESSMENT: 1. Right lower extremity cellulitis with abscess status post drainage PLAN: 1. I reviewed with him the findings of methicillin sensitive staph aureus infection for which alternative for antibiotic management per infectious disease provider. 2. At this time, he surgically stable. No need for further debridement. Objective - Vital Signs Vital signs: Vital Signs Temp 97.3 F L 06/13/19 06:07 Pulse 83 06/13/19 06:07 Resp 17 06/13/19 06:07 BP 128/82 06/13/19 06:07 Pulse Ox 98 06/13/19 06:07 Intake & Output 06/12/19 06/13/19 06/13/19 18:59 06:59 18:59 Intake Total 50 100 Balance 50 100 Weight 142.6 kg Intake: Intake, IV Titration 50 100 Amount ceFAZolin 2 gm In Sodium 50 100 Chloride 0.9% 50 ml @ 100 mls/hr IVPB Q8H [facility] Rx#: [id number] Other: # Voids 2 - Labs CBC & Chem 7: 06/13/19 07:44 06/13/19 07:44 Labs: Abnormal Lab Results - Last 24 Hours (Table) 06/13/19 06/13/19 Range/Units 07:44 07:44 RDW 15.6 H (11.5-15.5) % Plt Count 465 H (150-450) k/uL Glucose 107 H (74-99) mg/dL Microbiology - Last 24 Hours (Table) 06/09/19 18:30 Anaerobic Culture - Preliminary Thigh - Right 06/08/19 12:08 Blood Culture - Preliminary Blood No Growth after 96 hours 06/09/19 18:30 Gram Stain - Final Thigh - Right Tissue Culture - Final Staphylococcus aureus Assessment and Plan (1) MSSA (methicillin susceptible Staphylococcus aureus) infection Current Visit: Yes Status: Acute Code(s): A49.01 - METHICILLIN SUSCEP STAPH INFECTION, UNSP SITE SNOMED Code(s): 541259636 (2) Abscess of right leg Current Visit: Yes Status: Acute Code(s): L02.415 - CUTANEOUS ABSCESS OF RIGHT LOWER LIMB SNOMED Code(s): 346877665 (3) Cellulitis of leg, right Current Visit: Yes Status: Acute Code(s): L03.115 - CELLULITIS OF RIGHT LOWER LIMB SNOMED Code(s): 872316049
[2019-06-13] MEDS: LISINOPRIL 10 MG TAB PO SCH (20:45)
--- NOTE | 2019-06-14 01:44 | P.PN ---
Subjective Progress Note Date: 06/13/19 Principal diagnosis: Right thigh abscess This is a 59-year-old patient of Dr. Casey Varner. Chronic stable medical conditions include congestive heart failure EF 40%, secondary portal hypertension, COPD, GERD, Rakesh arthritis, varicose vein been followed by Dr. Rosario, atrial fibrillation. Patient about 2 months ago noticed a boil on the inner part of the right thigh. It continued to grow. And continued to enlarge. Patient had some pain but is able to get around. 4 days ago he broke down into what appeared to be no abscess. Denies any obvious fever and chills. The blister was taken off in the ER. Cultures were sent. Patient's on IV ceftriaxone and vancomycin. Infectious disease and surgery was consulted. On June 09-Dr. Walsh did operative I&D of the right thigh abscess. It did not go below the fascia . No muscular or tendons were involved.. Dr. Green did clean the wound. Otherwise patient tolerated diet.. 06/11/2019 Patient is complaining of right lower extremity pain and pain at the abscess site. Status post I&D. Currently being continued on antibiotics. Follow-up culture reports and ID is on board. Patient has been afebrile. No complaints of chest pain or shortness of breath. No nausea vomiting or abdominal pain. 06 12 2019 Patient says that he feels better today. Right leg pain is improving. Wound dressing was done. Continued on IV antibiotics in form of cefazolin. Follow-up final wound cultures. No complaints of chest pain or shortness of breath. Patient has been afebrile. No headache or dizziness or lightheadedness. 06/13/2019 Patient is status post I&D of right thigh abscess. Wound cultures showing staph aureus. Currently on several Zosyn. ID is on board. Leg swelling and cellulitis is much improved now. Anticipate discharge in the next 24 hours with morphine improvement. And ID final recommendations. Patient has been afebrile. Current medications reviewed. Objective - Vital Signs Vital signs: Vital Signs Temp 97.3 F L 06/13/19 06:07 Pulse 83 06/13/19 06:07 Resp 17 06/13/19 06:07 BP 128/82 06/13/19 06:07 Pulse Ox 98 06/13/19 06:07 Intake & Output 06/12/19 06/13/19 06/13/19 18:59 06:59 18:59 Intake Total 50 100 Balance 50 100 Weight 142.6 kg Intake: Intake, IV Titration 50 100 Amount ceFAZolin 2 gm In Sodium 50 100 Chloride 0.9% 50 ml @ 100 mls/hr IVPB Q8H [facility] Rx#: [id number] Other: # Voids 2 - Exam GENERAL: Sitting at the edge of bed, comfortable EYES: Pupils equal. Conjunctiva normal. HEENT: External appearance of nose and ears normal, oral cavity grossly normal. NECK: JVD not raised; masses not palpable. HEART: First and second heart sounds are normal; some edema. LUNGS: Respiratory rate normal; decreased breath sounds. ABDOMEN: Soft, nontender, liver spleen not palpable, no masses palpable. PSYCH: Alert and oriented x3; mood and affect normal. EXTREMITY: Dressing over the wound, surrounding redness - Labs CBC & Chem 7: 06/13/19 07:44 06/13/19 07:44 Labs: Abnormal Lab Results - Last 24 Hours (Table) 06/13/19 06/13/19 Range/Units 07:44 07:44 RDW 15.6 H (11.5-15.5) % Plt Count 465 H (150-450) k/uL Glucose 107 H (74-99) mg/dL Microbiology - Last 24 Hours (Table) 06/09/19 18:30 Anaerobic Culture - Preliminary Thigh - Right 06/08/19 12:08 Blood Culture - Preliminary Blood No Growth after 96 hours 06/09/19 18:30 Gram Stain - Final Thigh - Right Tissue Culture - Final Staphylococcus aureus Assessment and Plan Assessment: -Right thigh abscess with surrounding cellulitis. status post I&D -Chronic congestive heart failure from systolic dysfunction EF 40% -Secondary probably hypertension -COPD in a current smoker -GERD -Primary osteoarthritis -Large varicose veins of lower extremity -History of atrial fibrillation Plan: General surgery is following. Continue with IV antibiotics.. Patient to have wound care. Wound cultures growing staph aureus. Continue with cefazolin. ID is on board. Dressing change was done by surgery.. Time with Patient: Greater than 30
[2019-06-14] MEDS: diphenhydrAMINE 25 MG CAP PO SCH ×4 (03:40→20:30)
[2019-06-14] MEDS: APIXABAN 2.5 MG TABLET PO SCH (07:59)
[2019-06-14] MEDS: ATORVASTATIN 20 MG TAB PO SCH (07:59)
[2019-06-14] MEDS: METOPROLOL TARTRATE 25 MG TAB PO SCH ×2 (07:59→20:30)
[2019-06-14] MEDS: MULTIVITAMINS, THERA 1 EACH TAB PO SCH (07:59)
--- NOTE | 2019-06-14 11:40 | P.PN ---
<Grace Sorto Eduarda - Last Filed: 06/14/19 11:41> Subjective Progress Note Date: 06/14/19 CHIEF COMPLAINT: Right thigh abscess HISTORY OF PRESENT ILLNESS: Patient examined at the bedside. He denies pain to right lower extremity. Wound is noted to have some necrotic tissue to medial aspect. PHYSICAL EXAM: VITAL SIGNS: Reviewed. GENERAL: Well-developed in no acute distress. HEENT: No sclera icterus. Extraocular movements grossly intact. Moist buccal m ucosa. Head is atraumatic, normocephalic. ABDOMEN: Soft. Nondistended. Nontender. NEUROLOGIC: Alert and oriented. Cranial nerves II through XII grossly intact. SKIN: Wound is noted to have some necrotic tissue to medial aspect. ASSESSMENT: 1. Right thigh abscess, necrotizing infection with surrounding cellulitis PLAN: Continue daily dressing changes. Pack wound with wet to dry Kerlix. Cover with ABD pad. Patient will require wound vac therapy in the future. Will defer timing of wound vac to Dr. Green Continue antibiotics per Dr. Green Patient will be tentatively scheduled for debridement of right thigh wound tomorrow with Dr. Walsh Patient received Eliquis this AM. Will hold Eliquis. Begin heparin in the interim. Nurse practitioner note has been reviewed by physician. Signing provider agrees with the documented findings, assessment, and plan of care. Objective - Vital Signs Vital signs: Vital Signs Temp 97.6 F 06/14/19 05:20 Pulse 73 06/14/19 05:20 Resp 18 06/14/19 05:20 BP 126/78 06/14/19 05:20 Pulse Ox 100 06/14/19 05:20 Intake & Output 06/13/19 06/14/19 06/14/19 18:59 06:59 18:59 Intake Total 1040 1000 Balance 1040 1000 Weight 142.7 kg Intake: Intake, IV Titration 500 Amount Sodium Chloride 0.9% 1, 400 000 ml @ 50 mls/hr IV . Q20H YVETTE Rx#:[id number] ceFAZolin 2 gm In Sodium 100 Chloride 0.9% 50 ml @ 100 mls/hr IVPB Q8H YVETTE Rx#: [id number] Oral 540 1000 Other: Voiding Method Toilet # Voids 2 2 - Labs CBC & Chem 7: 06/13/19 07:44 06/13/19 07:44 Labs: Microbiology - Last 24 Hours (Table) 06/08/19 12:08 Blood Culture - Preliminary Blood No Growth after 120 hours <Prasad Walsh - Last Filed: 06/15/19 10:52> Objective - Vital Signs Vital signs: Vital Signs Temp 97.4 F L 06/15/19 05:11 Pulse 90 06/15/19 05:11 Resp 18 06/15/19 05:11 BP 121/79 06/15/19 05:11 Pulse Ox 99 06/15/19 05:11 Intake & Output 06/14/19 06/15/19 06/15/19 18:59 06:59 18:59 Intake Total 500 Balance 500 Intake: Oral 500 Other: Voiding Method Toilet Toilet Toilet # Voids 2 1 - Labs CBC & Chem 7: 06/13/19 07:44 06/13/19 07:44 Labs: Microbiology - Last 24 Hours (Table) 06/08/19 12:08 Blood Culture - Final Blood No Growth after 144 hours 06/09/19 18:30 Anaerobic Culture - Final Thigh - Right Assessment and Plan Assessment: We will debride thigh wound in the a.m.
--- NOTE | 2019-06-14 15:36 | P.PN ---
Subjective Progress Note Date: 06/14/19 Principal diagnosis: Right thigh abscess This is a 59-year-old patient of Dr. Casey Varner. Chronic stable medical conditions include congestive heart failure EF 40%, secondary portal hypertension, COPD, GERD, Rakesh arthritis, varicose vein been followed by Dr. Rosario, atrial fibrillation. Patient about 2 months ago noticed a boil on the inner part of the right thigh. It continued to grow. And continued to enlarge. Patient had some pain but is able to get around. 4 days ago he broke down into what appeared to be no abscess. Denies any obvious fever and chills. The blister was taken off in the ER. Cultures were sent. Patient's on IV ceftriaxone and vancomycin. Infectious disease and surgery was consulted. On June 09-Dr. Walsh did operative I&D of the right thigh abscess. It did not go below the fascia . No muscular or tendons were involved.. Dr. Green did clean the wound. Otherwise patient tolerated diet.. 06/11/2019 Patient is complaining of right lower extremity pain and pain at the abscess site. Status post I&D. Currently being continued on antibiotics. Follow-up culture reports and ID is on board. Patient has been afebrile. No complaints of chest pain or shortness of breath. No nausea vomiting or abdominal pain. 06 12 2019 Patient says that he feels better today. Right leg pain is improving. Wound dressing was done. Continued on IV antibiotics in form of cefazolin. Follow-up final wound cultures. No complaints of chest pain or shortness of breath. Patient has been afebrile. No headache or dizziness or lightheadedness. 06/13/2019 Patient is status post I&D of right thigh abscess. Wound cultures showing staph aureus. Currently on several Zosyn. ID is on board. Leg swelling and cellulitis is much improved now. Anticipate discharge in the next 24 hours with morphine improvement. And ID final recommendations. Patient has been afebrile. Current medications reviewed. 06/14/2019 Patient is sitting up at the side of the bed in no acute distress. Infectious disease is following. Spoke with the nursing staff in regards to the right leg abscess that was recently I&D and reviewed the images that were taken today as the right thigh is currently Kehinde wrapped with the gauze was just replaced. Patient is being maintained on IV antibiotics in the form of cefazolin and will continue at this time. Discussed with the patient about discharge planning and patient is adamant about returning home as he does not want to go to rehab facility. Patient does not have very good coverage with insurance and will keep be paying a lot of it out of pocket. Patient is currently stressed as he needs to be home by Friday to pay his rent or he will be evicted. Patient is to undergo debridement in the OR of that right thigh abscess in the morning. Review of Systems: Cardiovascular: No reports of chest pain or palpitations Respiratory: No reports of shortness of breath or cough GI: No reports of nausea, vomiting, or diarrhea : No reports of dysuria or urinary retention Skin: Right thigh abscess is currently Kehinde wrapped with a dressing that is dry and intact with some surrounding redness noted. Right lower leg has a dressing that is dry and intact swelling. Left lower extremity is slightly reddened and skin is intact. Objective - Vital Signs Vital signs: Vital Signs Temp 97.8 F 06/14/19 12:52 Pulse 83 06/14/19 12:52 Resp 16 06/14/19 12:52 BP 120/81 06/14/19 12:52 Pulse Ox 100 06/14/19 12:52 Intake & Output 06/13/19 06/14/19 06/14/19 18:59 06:59 18:59 Intake Total 1040 1000 Balance 1040 1000 Weight 142.7 kg Intake: Intake, IV Titration 500 Amount Sodium Chloride 0.9% 1, 400 000 ml @ 50 mls/hr IV . Q20H YVETTE Rx#:[id number] ceFAZolin 2 gm In Sodium 100 Chloride 0.9% 50 ml @ 100 mls/hr IVPB Q8H YVETTE Rx#: [id number] Oral 540 1000 Other: Voiding Method Toilet # Voids 2 2 3 - Exam GENERAL: Sitting at the edge of bed, comfortable EYES: Pupils equal. Conjunctiva normal. HEENT: External appearance of nose and ears normal, oral cavity grossly normal. NECK: JVD not raised; masses not palpable. HEART: First and second heart sounds are normal; some edema. LUNGS: Respiratory rate normal; decreased breath sounds. ABDOMEN: Soft, nontender, liver spleen not palpable, no masses palpable. PSYCH: Alert and oriented x3; mood and affect normal. EXTREMITY: Dressing over the wound, surrounding redness - Labs CBC & Chem 7: 06/13/19 07:44 06/13/19 07:44 Labs: Microbiology - Last 24 Hours (Table) 06/08/19 12:08 Blood Culture - Final Blood No Growth after 144 hours 06/09/19 18:30 Anaerobic Culture - Final Thigh - Right Assessment and Plan Assessment: -Right thigh abscess with surrounding cellulitis. status post I&D -Chronic congestive heart failure from systolic dysfunction EF 40% -Secondary probably hypertension -COPD in a current smoker -GERD -Primary osteoarthritis -Large varicose veins of lower extremity -History of atrial fibrillation Plan: General surgery is following. Continue with IV antibiotics.. Patient to have wound care. Wound cultures growing staph aureus. Continue with cefazolin. ID is on board. Dressing change was done by surgery. The plan is to go to the OR in the morning for another debridement of the right thigh abscess. Further recommendations to follow. Will continue to monitor closely.
[2019-06-14] MEDS: SODIUM CHLORIDE 0.9% 1,000 ML IV SCH (17:03)
[2019-06-14] MEDS: HEPARIN SODIUM,PORCINE 5,000 UNIT/ML 1 ML VIAL SQ SCH (20:30)
[2019-06-14] MEDS: LISINOPRIL 10 MG TAB PO SCH (20:30)
--- NOTE | 2019-06-14 22:45 | P.PN ---
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 He relates no significant trauma or injury to this site. He has no cuts or bruises that occurred at work and in no injury from animal products her bones to the thigh. He treated it locally but a pustule formed he had no ability to have a draining test he presented to the emergency center. There is noticed to have the large pustule with significant surrounding erythema some tissue necrosis and a large area of cellulitis of right thigh swelling. With this he was admitted to hospital for further evaluation. Surgical consult has been requ ested. Computed tomography scan shows evidence of the significant abscess. The patient feels quite poorly she's had chills without rigors and believes he had a fever. It has been draining since the attempt for incision and drainage in the emergency center. The material is mostly serosanguineous and minimally purulent. He does not know when his last tetanus shot was. He does relate that he was seen by Dr. Devine regarding his varicose veins and he contemplated laser surgical repair but this never came to fruition. 06/10/2019 the patient is feeling relatively well and does voice his standing concerns to the extensive nature the wound after the surgical debridement that occurred. He had no idea that the process on his leg would be so significant. He is having some discomfort but is not severe. He is well known to the vascular surgeon from the past evaluations. At this time is having no fevers, chills or rigors of pain at the site he is doing modestly well. His appetite is adequate. He is having no nausea or emesis, is having no diarrhea and other difficulties with antibiotic therapy. 06/11/2019 the patient is feeling a bit better today, he did have some significant pain after debridement wound change. He is fortunately having no further fevers or chills. He is denying other new symptoms. 06/14/2019 the patient is feeling slightly better but continues to have drainage from the site. He is having and seen by surgery and there are plans for a formal incision and drainage to the abscess site. Hopefully this will allow improvement to the base and then for consideration for negative pressure therapy treatment. Objective - Vital Signs Vital signs: Vital Signs Temp 97.8 F 06/14/19 12:52 Pulse 83 06/14/19 12:52 Resp 16 06/14/19 12:52 BP 120/81 06/14/19 12:52 Pulse Ox 100 06/14/19 12:52 Intake & Output 06/14/19 06/14/19 06/15/19 06:59 18:59 06:59 Intake Total 1000 Balance 1000 Weight 142.7 kg Intake: Oral 1000 Other: Voiding Method Toilet Toilet # Voids 2 2 - Exam HEENT: Anicteric conjunctiva are pink and moist nasal mucosa grossly intact without significant lesions, there is no thrush. Poor dentition Neck: The neck is supple without significant lymphadenopathy or thyromegaly. Lungs: They're symmetrical bilateral air entry there are expiratory wheezes right the lung la but no jayesh bronchial sounds there is no dullness or egophony Heart: Regular rate and rhythm with an audible S1-S2, no S3 no S4. There is no significant murmur click or rub, PMI was nondisplaced. Abdomen: Obese, Positive bowel sounds soft and nontender without palpable masses or organomegaly. There was no guarding or rebound. Extremities: The upper extremities have excellent pulses they are symmetric, no significant petechiae or telangiectasia. No splinter hemorrhages were noted. The left lower extremities reveal evidence of some chronic lower extremity edema. Thel eft limbs reveal the extensive varicosities but no open ulceration. The reduction reveals the extensive surgical wound in the medial aspect of the thigh. There is evidence of a stinging amount of necrotic fat at the base of the ulceration. There was cautery that occurred and approximately a handful of necrotic fat was easily removed from the base of the ulceration with a dressing change. It is packed with a saline dressing. The surrounding erythema seems to be slightly improved the tenderness of the area persists. There is evidence of easily palpable lymphadenopathy to the right groin. No other abnormal lymph nodes are noted. The right pretibial area has evidence of some chronic ulceration it's also noted. It is not draining and is nontender. The peripheral pulses are palpable to the bilateral feet with adequate capillary refill. Neuro: Awake alert oriented to person place and time. There are no acute new gross focal sensory motor deficits. - Labs CBC & Chem 7: 06/13/19 07:44 06/13/19 07:44 Labs: Microbiology - Last 24 Hours (Table) 06/08/19 12:08 Blood Culture - Final Blood No Growth after 144 hours 06/09/19 18:30 Anaerobic Culture - Final Thigh - Right Laboratory Results WBC 8.4 k/uL (3.8-10.6) 06/13/19 07:44 RBC 5.08 m/uL (4.30-5.90) 06/13/19 07:44 Hgb 13.8 gm/dL (13.0-17.5) 06/13/19 07:44 Hct 43.9 % (39.0-53.0) 06/13/19 07:44 MCV 86.4 fL (80.0-100.0) 06/13/19 07:44 MCH 27.2 pg (25.0-35.0) 06/13/19 07:44 MCHC 31.4 g/dL (31.0-37.0) 06/13/19 07:44 RDW 15.6 % (11.5-15.5) H 06/13/19 07:44 Plt Count 465 k/uL (150-450) H 06/13/19 07:44 Neutrophils % 72 % 06/13/19 07:44 Lymphocytes % 14 % 06/13/19 07:44 Monocytes % 3 % 06/13/19 07:44 Eosinophils % 8 % 06/13/19 07:44 Basophils % 0 % 06/13/19 07:44 Neutrophils # 6.0 k/uL (1.3-7.7) 06/13/19 07:44 Lymphocytes # 1.2 k/uL (1.0-4.8) 06/13/19 07:44 Monocytes # 0.3 k/uL (0-1.0) 06/13/19 07:44 Eosinophils # 0.7 k/uL (0-0.7) 06/13/19 07:44 Basophils # 0.0 k/uL (0-0.2) 06/13/19 07:44 Hypochromasia Moderate 06/13/19 07:44 ESR 54 mm/hr (0-15) H 06/08/19 12:08 Sodium 140 mmol/L (137-145) 06/13/19 07:44 Potassium 4.8 mmol/L (3.5-5.1) 06/13/19 07:44 Chloride 103 mmol/L (98-107) 06/13/19 07:44 Carbon Dioxide 28 mmol/L (22-30) 06/13/19 07:44 Anion Gap 9 mmol/L 06/13/19 07:44 BUN 14 mg/dL (9-20) 06/13/19 07:44 Creatinine 1.09 mg/dL (0.66-1.25) 06/13/19 07:44 Est GFR (CKD-EPI)AfAm 86 (>60 ml/min/1.73 sqM) 06/13/19 07:44 Est GFR (CKD-EPI)NonAf 75 (>60 ml/min/1.73 sqM) 06/13/19 07:44 Glucose 107 mg/dL (74-99) H 06/13/19 07:44 Plasma Lactic Acid Luis 1.8 mmol/L (0.7-2.0) 06/08/19 12:08 Calcium 9.3 mg/dL (8.4-10.2) 06/13/19 07:44 Total Bilirubin 0.6 mg/dL (0.2-1.3) 06/08/19 12:08 AST 27 U/L (17-59) 06/08/19 12:08 ALT 21 U/L (21-72) 06/08/19 12:08 Alkaline Phosphatase 123 U/L (38-126) 06/08/19 12:08 C-Reactive Protein 82.4 mg/L (<10.0) H 06/08/19 12:08 Total Protein 6.6 g/dL (6.3-8.2) 06/08/19 12:08 Albumin 3.4 g/dL (3.5-5.0) L 06/08/19 12:08 Microbiology 06/08/19 12:08 Blood Blood Culture - Final No Growth after 144 hours 06/09/19 18:30 Thigh - Right Anaerobic Culture - Final 06/09/19 18:30 Thigh - Right Gram Stain - Final 06/09/19 18:30 Thigh - Right Tissue Culture - Final Staphylococcus aureus 06/08/19 15:36 Leg - Left Gram Stain - Final 06/08/19 15:36 Leg - Left Wound Culture - Final Staphylococcus aureus Assessment and Plan (1) Abscess of right leg Narrative/Plan: 51-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 Inability to drain the home setting and he suddenly had increasing pain and swelling erythema typify excessively sought attention at the hospital. Incision and drainage was attempted in the ER that was limited because of the need for surgical intervention. The patient will have a dressing applied with foam and EBD utilize some mesh garments try to keep it in place. Antibiotic therapy was started with vancomycin we'll also get and Rocephin for now until we have further data. Computed tomography scan does show evidence of abscess he will need surgical incision and drainage to be performed. Surgical consult is in process. We'll update his tetanus vaccine. When a multivitamin with [employer] adequate protein intake. For the chronic distal ulceration we will utilize therahoney to be changed every other day. Leukocytosis is due to significant infection and abscess to the right thigh which is associated with some lymphadenopathy also. The summer the patient is doing well status post surgical intervention. There is evidence of the large open ulceration with fat necrosis the base. Some of this was gently debrided away with mechanical debridement. In bleeding occurred. The wound is redressed and dressing is buttoned place. Final cultures become available and MSSA is isolated antibiotic therapy is now descalated to Ancef at 2 g IV piggyback every 8 hours Once necrosis the bases improved will be a candidate for negative pressure therapy which will be arranged home care. With the extensive nature this infection at this time would consider outpatient intravenous antibiotic therapy hopefully in his home setting. Leukocytosis is starting to show some improvement No other significant ulcerations are seen. At the time of the surgery no necrotizing infection was noted. 06/11/2019 the patient is feeling better today. His pain has responded well to current pain medications after the debridement and local wound care changes. He is without further fevers. Once is evidence of the improvement of the necrosis to the base woman work with the team to try to get a negative pressure therapy system in place and have that also for home. Emesis he is isolated in his antibiotic therapy was changed to Ancef. Is again somewhat likely that he may require outpatient intravenous antibiotic therapy. There is also potentially need to come to the office. He over does have significant psychosocial difficulties this discharge plan could end up being very complicated. 06/14/2019 the patient has had no acute no difficulties but continues to have a large amount of necrotic material at the base of his ulceration. There is plan for surgical incision and drainage at the site tomorrow. Over this will allow improvement wound base consequently then negative pressure therapy hopefully can be applied. Working with the urban planner to ensure that there is transition to the outpatient setting. He has complex psychosocial difficulties due to his living arrangement. He however does believe that he could have a visiting nurse for himself. He believes he due to the wound center weekly. Is related he doesn't have coverage for outpatient intravenous antibiotic therapy. Current Visit: Yes Status: Acute Code(s): L02.415 - CUTANEOUS ABSCESS OF RIGHT LOWER LIMB SNOMED Code(s): 719716567 (2) Cellulitis of leg, right Current Visit: Yes Status: Acute Code(s): L03.115 - CELLULITIS OF RIGHT LOWER LIMB SNOMED Code(s): 950697498 (3) Varicose veins of both legs with edema Current Visit: No Status: Acute Code(s): I83.893 - VARICOSE VEINS OF BI LOW EXTREM W OTH COMPLICATIONS SNOMED Code(s): 10132483
[2019-06-15] MEDS: HEPARIN SODIUM,PORCINE 5,000 UNIT/ML 1 ML VIAL SQ SCH ×3 (03:23→20:36)
[2019-06-15] MEDS: diphenhydrAMINE 25 MG CAP PO SCH ×4 (03:24→20:36)
[2019-06-15] MEDS: ATORVASTATIN 20 MG TAB PO SCH (07:04)
[2019-06-15] MEDS: MULTIVITAMINS, THERA 1 EACH TAB PO SCH (07:04)
[2019-06-15] MEDS: METOPROLOL TARTRATE 25 MG TAB PO SCH ×2 (07:06→20:36)
[2019-06-15] MEDS ORDERED: IV FLUID CONTINUATION 750 ML IV ONE (10:55)
[2019-06-15] MEDS ORDERED: SUCCINYLCHOLINE CHLORIDE 100 MG/5 ML SYR IV ONE (11:09)
[2019-06-15] MEDS ORDERED: fentaNYL (PF) 50 MCG/ML 2 ML AMP ONE (11:09)
[2019-06-15] MEDS ORDERED: PROPOFOL 10 MG/ML 20 ML VIAL IV ONE (11:09)
[2019-06-15] MEDS ORDERED: MIDAZOLAM 2 MG/2 ML VIAL ONE (11:09)
--- NOTE | 2019-06-15 11:42 | P.OP ---
Date of Procedure: 06/15/19 Preoperative Diagnosis: Right thigh wound Postoperative Diagnosis: Right thigh wound Procedure(s) Performed: Debridement of right thigh wound Anesthesia: THALIA Surgeon: Prasad Walsh Pathology: none sent Condition: stable Disposition: PACU Description of Procedure: The patient's placed the operative table in the supine position. His legs were frog legged. His right thigh was prepped and draped usual sterile fashion. The right thigh had some necrotic fat. This was debrided sharply with a curet. At the end of the debridement the wound measured 6 x 11 x 3 cm. Sterile dressing wet-to-dry Kerlix was applied. Patient top she will well and was sent to recovery room stable condition.
[2019-06-15] MEDS ORDERED: HYDROmorphone 1 MG/ML 1 ML SYRINGE IVP ONE ×4 (11:55→12:17)
[2019-06-15] MEDS: SODIUM CHLORIDE 0.9% 1,000 ML IV SCH (14:27)
[2019-06-15] MEDS: LISINOPRIL 10 MG TAB PO SCH (20:36)
--- NOTE | 2019-06-16 | P.PN ---
Progress Note - Text Progress Note Date: 06/15/19 Chief Complaint: Right thigh abscess History of presenting complaint: This is a 59-year-old patient of Dr. Casey Varner. Chronic stable medical conditions include congestive heart failure EF 40%, secondary portal hypertension, COPD, GERD, Rakesh arthritis, varicose vein been followed by Dr. Rosario, atrial fibrillation. Patient about 2 months ago noticed a boil on the inner part of the right thigh. It continued to grow. And continued to enlarge. Patient had some pain but is able to get around. 4 days ago he broke down into what appeared to be no abscess. Denies any obvious fever and chills. The blister was taken off in the ER. On June 09-Dr. Walsh did operative I&D of the right thigh abscess. It did not go below the fascia . No muscular or tendons were involved.. Cultures were positive for MSSA. Today-pain control. Patient due to go down this afternoon for further cleansing of the old. Tolerating his diet. Review of systems: Was done for constitutional, cardiovascular, GI, pulmonary. relevant finding as above Active Medications Acetaminophen (Tylenol Tab) 650 mg PO Q6HR PRN PRN Reason: Mild Pain or Fever > 100.5 Hydrocodone Bitart/Acetaminophen ([place] 5-325) 1 each PO Q4HR PRN PRN Reason: Pain Last Admin: 06/11/19 13:54 Dose: 1 each Documented by: Aspirin (Aspirin) 325 mg PO Q6H PRN PRN Reason: Pain Atorvastatin Calcium (Lipitor) 20 mg PO DAILY [facility] Last Admin: 06/15/19 07:04 Dose: Not Given Documented by: Diphenhydramine HCl (Benadryl) 25 mg PO Q6H [facility] Last Admin: 06/15/19 20:36 Dose: 25 mg Documented by: Heparin Sodium (Porcine) (Heparin) 5,000 unit SQ Q8H [facility] Last Admin: 06/15/19 20:36 Dose: 5,000 unit Documented by: Hydromorphone HCl (Dilaudid) 1 mg IVP Q3HR PRN PRN Reason: Pain Last Admin: 06/11/19 15:40 Dose: 1 mg Documented by: Sodium Chloride (Saline 0.9%) 1,000 mls @ 50 mls/hr IV .Q20H [facility] Last Admin: 06/15/19 14:27 Dose: 50 mls/hr Documented by: Cefazolin Sodium 2 gm/ Sodium (Chloride) 50 mls @ 100 mls/hr IVPB Q8H [facility] Last Admin: 06/15/19 20:36 Dose: 100 mls/hr Documented by: Lisinopril (Zestril) 10 mg PO HS [facility] Last Admin: 06/15/19 20:36 Dose: 10 mg Documented by: Metoprolol Tartrate (Lopressor) 25 mg PO BID [facility] Last Admin: 06/15/19 20:36 Dose: 25 mg Documented by: Multivitamins (Theragran) 1 each PO DAILY [facility] Last Admin: 06/15/19 07:04 Dose: Not Given Documented by: Naloxone HCl (Narcan) 0.2 mg IV Q2M PRN PRN Reason: Opioid Reversal Ondansetron HCl (Zofran) 4 mg IVP Q8HR PRN PRN Reason: Nausea And Vomiting Tramadol HCl (Ultram) 50 mg PO Q6H PRN PRN Reason: Moderate Pain Last Admin: 06/11/19 08:36 Dose: 50 mg Documented by: Physical examination: VITAL SIGNS: 97.6, 95, 18, 11 3/79, 99% room air GENERAL: Sitting at the edge of bed, comfortable EYES: Pupils equal. Conjunctiva normal. HEENT: External appearance of nose and ears normal, oral cavity grossly normal. NECK: JVD not raised; masses not palpable. HEART: First and second heart sounds are normal; some edema. LUNGS: Respiratory rate normal; decreased breath sounds. ABDOMEN: Soft, nontender, liver spleen not palpable, no masses palpable. PSYCH: Alert and oriented x3; mood and affect normal. EXTREMITY: Dressing over the wound, surrounding redness INVESTIGATIONS, reviewed in the clinical context: White count 8.4 hemoglobin 13.8 progression 4.8 creatinine 1.0 Wound culture-MSSA Assessment: -Right thigh abscess status post I&D, growing MSSA -Chronic congestive heart failure from systolic dysfunction EF 40% -Secondary probably hypertension -COPD in a current smoker -GERD -Primary osteoarthritis -Large varicose veins of lower extremity -History of atrial fibrillation Plan: Continue with local wound care as per Dr. Nico Green. Patient is IV Ancef. Late in the afternoon patient did go for wound debridement with Dr. Walsh. stakeholder manager looking into antibiotic coverage upon discharge.
--- NOTE | 2019-06-16 00:05 | P.PN ---
Progress Note - Text Progress Note Date: 06/15/19 Patient was in the operating room today. The surgical relates that the site is now improved since his surgical incision and drainage. The plan is to work with the discharge planners so that they pressure therapy system may be arranged. He does live in a hotel which may complicate his discharge due to the psychosocial difficulties.
[2019-06-16] MEDS: HEPARIN SODIUM,PORCINE 5,000 UNIT/ML 1 ML VIAL SQ SCH ×3 (03:17→21:55)
[2019-06-16] MEDS: diphenhydrAMINE 25 MG CAP PO SCH ×4 (03:17→21:56)
[2019-06-16] MEDS: SODIUM CHLORIDE 0.9% 1,000 ML IV SCH (07:34)
[2019-06-16] MEDS: MULTIVITAMINS, THERA 1 EACH TAB PO SCH (07:35)
[2019-06-16] MEDS: ATORVASTATIN 20 MG TAB PO SCH (07:35)
[2019-06-16] MEDS: METOPROLOL TARTRATE 25 MG TAB PO SCH ×2 (07:35→21:55)
--- NOTE | 2019-06-16 14:37 | P.PN ---
Subjective Progress Note Date: 06/16/19 CHIEF COMPLAINT: Right thigh abscess HISTORY OF PRESENT ILLNESS: Patient is status post debridement of right medial thigh on 06/09/2019. He underwent repeat debridement of right thigh wound on 06/15/2019. Patient examined at the bedside. He denies pain to right lower extremity. PHYSICAL EXAM: VITAL SIGNS: Reviewed. GENERAL: Well-developed in no acute distress. HEENT: No sclera icterus. Extraocular movements grossly intact. Moist buccal mucosa. Head is atraumatic, normocephalic. ABDOMEN: Soft. Nondistended. Nontender. NEUROLOGIC: Alert and oriented. Cranial nerves II through XII grossly intact. SKIN: Dressing to right lower extremity clean dry intact ASSESSMENT: 1. Right thigh abscess, necrotizing infection with surrounding cellulitis PLAN: Wound vac per Dr. Green No further surgical intervention recommended May resume Eliquis from a surgical standpoint Nurse practitioner note has been reviewed by physician. Signing provider agrees with the documented findings, assessment, and plan of care. Objective - Vital Signs Vital signs: Vital Signs Temp 98.0 F 06/16/19 04:55 Pulse 87 06/16/19 04:55 Resp 16 06/16/19 04:55 BP 138/73 06/16/19 04:55 Pulse Ox 100 06/16/19 04:55 Intake & Output 06/15/19 06/16/19 06/16/19 18:59 06:59 18:59 Intake Total 1780 400 Output Total 25 Balance 1755 400 Intake: IV 700 Oral 1080 400 Output: Estimated Blood Loss 25 Other: Voiding Method Toilet Toilet Toilet # Voids 2 5 - Labs CBC & Chem 7: 06/13/19 07:44 06/13/19 07:44
[2019-06-16] MEDS: LISINOPRIL 10 MG TAB PO SCH (21:55)
--- NOTE | 2019-06-17 01:08 | P.PN ---
Progress Note - Text Progress Note Date: 06/16/19 Chief Complaint: Right thigh abscess History of presenting complaint: This is a 59-year-old patient of Dr. Casey Varner. Chronic stable medical conditions include congestive heart failure EF 40%, secondary portal hypertension, COPD, GERD, Rakesh arthritis, varicose vein been followed by Dr. Rosario, atrial fibrillation. Patient about 2 months ago noticed a boil on the inner part of the right thigh. It continued to grow. And continued to enlarge. Patient had some pain but is able to get around. 4 days ago he broke down into what appeared to be no abscess. Denies any obvious fever and chills. The blister was taken off in the ER. On June 09-Dr. Walsh did operative I&D of the right thigh abscess. It did not go below the fascia . No muscular or tendons were involved.. Cultures were positive for MSSA. Today-patient did get his wound VAC to go home. Patient can go home tomorrow morning so that home dose can commode for the wound VAC. No other issues. Review of systems: Was done for constitutional, cardiovascular, GI, pulmonary. relevant finding as above Active Medications Acetaminophen (Tylenol Tab) 650 mg PO Q6HR PRN PRN Reason: Mild Pain or Fever > 100.5 Hydrocodone Bitart/Acetaminophen ([place] 5-325) 1 each PO Q4HR PRN PRN Reason: Pain Last Admin: 06/11/19 13:54 Dose: 1 each Documented by: Aspirin (Aspirin) 325 mg PO Q6H PRN PRN Reason: Pain Atorvastatin Calcium (Lipitor) 20 mg PO DAILY [facility] Last Admin: 06/16/19 07:35 Dose: 20 mg Documented by: Diphenhydramine HCl (Benadryl) 25 mg PO Q6H [facility] Last Admin: 06/16/19 21:56 Dose: 25 mg Documented by: Heparin Sodium (Porcine) (Heparin) 5,000 unit SQ Q8H [facility] Last Admin: 06/16/19 21:55 Dose: 5,000 unit Documented by: Hydromorphone HCl (Dilaudid) 1 mg IVP Q3HR PRN PRN Reason: Pain Last Admin: 06/11/19 15:40 Dose: 1 mg Documented by: Sodium Chloride (Saline 0.9%) 1,000 mls @ 50 mls/hr IV .Q20H [facility] Last Admin: 06/16/19 07:34 Dose: 50 mls/hr Documented by: Cefazolin Sodium 2 gm/ Sodium (Chloride) 50 mls @ 100 mls/hr IVPB Q8H [facility] Last Admin: 06/16/19 21:55 Dose: 100 mls/hr Documented by: Lisinopril (Zestril) 10 mg PO HS [facility] Last Admin: 06/16/19 21:55 Dose: 10 mg Documented by: Metoprolol Tartrate (Lopressor) 25 mg PO BID [facility] Last Admin: 06/16/19 21:55 Dose: 25 mg Documented by: Multivitamins (Theragran) 1 each PO DAILY [facility] Last Admin: 06/16/19 07:35 Dose: 1 each Documented by: Naloxone HCl (Narcan) 0.2 mg IV Q2M PRN PRN Reason: Opioid Reversal Ondansetron HCl (Zofran) 4 mg IVP Q8HR PRN PRN Reason: Nausea And Vomiting Tramadol HCl (Ultram) 50 mg PO Q6H PRN PRN Reason: Moderate Pain Last Admin: 06/11/19 08:36 Dose: 50 mg Documented by: Physical examination: VITAL SIGNS: 97.5, 93, 16, 103/66, 93% on room air GENERAL: Sitting at the edge of bed, comfortable EYES: Pupils equal. Conjunctiva normal. HEENT: External appearance of nose and ears normal, oral cavity grossly normal. NECK: JVD not raised; masses not palpable. HEART: First and second heart sounds are normal; some edema. LUNGS: Respiratory rate normal; decreased breath sounds. ABDOMEN: Soft, nontender, liver spleen not palpable, no masses palpable. PSYCH: Alert and oriented x3; mood and affect normal. EXTREMITY: Dressing over the wound, surrounding redness INVESTIGATIONS, reviewed in the clinical context: White count 8.4 hemoglobin 13.8 progression 4.8 creatinine 1.0 Wound culture-MSSA Assessment: -Right thigh abscess status post I&D, growing MSSA -Chronic congestive heart failure from systolic dysfunction EF 40% -Secondary probably hypertension -COPD in a current smoker -GERD -Primary osteoarthritis -Large varicose veins of lower extremity -History of atrial fibrillation Plan: Patient be going home on Keflex. Wound VAC will be placed tomorrow. Visiting nurse will come out tomorrow at home. She should go home tomorrow. Discussed with the patient. Check labs in the morning.
[2019-06-17] MEDS: diphenhydrAMINE 25 MG CAP PO SCH ×2 (04:42→06:55)
[2019-06-17] MEDS: HEPARIN SODIUM,PORCINE 5,000 UNIT/ML 1 ML VIAL SQ SCH ×2 (04:42→11:20)
[2019-06-17 05:26] VITALS: BP 126/83; PULSE 90; RESP 20; TEMP 97.4
[2019-06-17] MEDS: SODIUM CHLORIDE 0.9% 1,000 ML IV SCH (06:05)
[2019-06-17] MEDS: METOPROLOL TARTRATE 25 MG TAB PO SCH (06:55)
[2019-06-17] MEDS: MULTIVITAMINS, THERA 1 EACH TAB PO SCH (06:55)
[2019-06-17] MEDS: ATORVASTATIN 20 MG TAB PO SCH (06:55)
[2019-06-17 09:43] VITALS: BMI 39.3
[2019-06-17 09:53] LABS: Anisocytosis Slight; HCT 40.1 % (39.0-53.0); Hypochromasia Slight; MCH 26.2 pg (25.0-35.0); MCV 87.4 fL (80.0-100.0); Mean Platelet Volume 7.7; Platelet Count 423 k/uL (150-450); RBC 4.59 m/uL (4.30-5.90); RDW 16.1 % (11.5-15.5); WBC 7.1 k/uL (3.8-10.6)
[2019-06-17 10:22] LABS: ALT <6 U/L (21-72); AST 21 U/L (17-59); African American GFR (CKD) 76 (>60 ml/min/1.73 sqM); Albumin 3.4 g/dL (3.5-5.0); Alkaline Phosphatase 95 U/L (38-126); Anion Gap 7 mmol/L; Blood Urea Nitrogen 21 mg/dL (9-20); Carbon Dioxide 28 mmol/L (22-30); Chloride 106 mmol/L (98-107); Glucose 120 mg/dL (74-99); Non-African American GFR(CKD) 66 (>60 ml/min/1.73 sqM); Sodium 141 mmol/L (137-145); Total Bilirubin 0.4 mg/dL (0.2-1.3)
--- NOTE | 2019-06-17 12:04 | P.PN ---
Subjective Progress Note Date: 06/17/19 CHIEF COMPLAINT: Right thigh abscess HISTORY OF PRESENT ILLNESS: Patient is status post debridement of right medial thigh on 06/09/2019. He underwent repeat debridement of right thigh wound on 06/15/2019. Patient examined at the bedside. He denies pain to right lower extremity. He is hoping to be discharged home today. PHYSICAL EXAM: VITAL SIGNS: Reviewed. GENERAL: Well-developed in no acute distress. HEENT: No sclera icterus. Extraocular movements grossly intact. Moist buccal mucosa. Head is atraumatic, normocephalic. ABDOMEN: Soft. Nondistended. Nontender. NEUROLOGIC: Alert and oriented. Cranial nerves II through XII grossly intact. SKIN: Dressing to right lower extremity clean dry intact ASSESSMENT: 1. Right thigh abscess, necrotizing infection with surrounding cellulitis PLAN: Wound vac per Dr. Green. Continue antibiotics. No further surgical intervention recommended May resume Eliquis from a surgical standpoint Stable for discharge home a surgical standpoint. Will defer to medicine. Nurse practitioner note has been reviewed by physician. Signing provider agrees with the documented findings, assessment, and plan of care. Objective - Vital Signs Vital signs: Vital Signs Temp 97.4 F L 06/17/19 05:25 Pulse 90 06/17/19 05:25 Resp 20 06/17/19 05:25 BP 126/83 06/17/19 05:25 Pulse Ox 98 06/17/19 05:25 Intake & Output 06/16/19 06/17/19 06/17/19 18:59 06:59 18:59 Intake Total 1080 Balance 1080 Weight 142.7 kg Intake: Oral 1080 Other: Voiding Method Toilet Toilet # Voids 1 2 2 - Labs CBC & Chem 7: 06/17/19 09:05 06/17/19 09:05 Labs: Abnormal Lab Results - Last 24 Hours (Table) 06/17/19 06/17/19 Range/Units 09:05 09:05 Hgb 12.0 L (13.0-17.5) gm/dL MCHC 30.0 L (31.0-37.0) g/dL RDW 16.1 H (11.5-15.5) % BUN 21 H (9-20) mg/dL Glucose 120 H (74-99) mg/dL ALT <6 L (21-72) U/L Albumin 3.4 L (3.5-5.0) g/dL
--- NOTE | 2019-06-18 22:11 | P.DS ---
Providers Date of admission: 06/10/19 14:15 Expected date of discharge: 06/17/19 Attending physician: Ramses Mccann Consults: 06/08/19 15:21 Consult Physician Stat Consulting Provider: Prasad Walsh Consult Reason/Comments: Large right medial thigh abscess Do you want consulting provider notified?: Yes Consult Physician Stat Consulting Provider: Casey Green Consult Reason/Comments: Large right medial thigh abscess Do you want consulting provider notified?: Yes 06/08/19 21:13 Consult Physician Urgent Consulting Provider: Chris Devine Consult Reason/Comments: right inner thigh abcess/varicose vein Do you want consulting provider notified?: Yes Primary care physician: Casey Varner [facility] Course: Chief Complaint: Right thigh abscess Hospital course: This is a 59-year-old patient of Dr. Casey Varner. Chronic stable medical conditions include congestive heart failure EF 40%, secondary portal hypertension, COPD, GERD, osteoarthritis, varicose vein been followed by Dr. Devine, atrial fibrillation. Patient about 2 months ago noticed a boil on the inner part of the right thigh. It continued to grow. , enlarge. Patient had some pain but is able to get around. 4 days ago he broke down into what appeared to be abscess. Denies any obvious fever and chills. The blister was taken off in the ER. On June 09-Dr. Walsh did operative I&D of the right thigh abscess. It did not go below the fascia . No muscular or tendons were involved.. Cultures were positive for MSSA.patient did require repeat debridement. given IV cefazolin. Antibiotics were switched to oral Keflex. Care was discussed with the patient. Discharge planning was involved. home nurse from [facility] will come out tomorrow to place the wound VAC Consultation: Dr. Green from ID Dr. Walsh from general surgery Physical examination: VITAL SIGNS: 97.4, 90, 20, 126/83, 98% on room air GENERAL: Sitting at the edge of bed, comfortable EYES: Pupils equal. Conjunctiva normal. HEENT: External appearance of nose and ears normal, oral cavity grossly normal. NECK: JVD not raised; masses not palpable. HEART: First and second heart sounds are normal; some edema. LUNGS: Respiratory rate normal; decreased breath sounds. ABDOMEN: Soft, nontender, liver spleen not palpable, no masses palpable. PSYCH: Alert and oriented x3; mood and affect normal. EXTREMITY: Dressing over the wound, INVESTIGATIONS, reviewed in the clinical context: white count 7.1 hemoglobin 12 progression 5 Alevism 1.2 on Wound culture-MSSA Assessment: -Right thigh abscess status post I&D, growing MSSA -Chronic congestive heart failure from systolic dysfunction EF 40% -Secondary probably hypertension -COPD in a current smoker -GERD -Primary osteoarthritis -Large varicose veins of lower extremity -History of atrial fibrillation disposition: Home Patient Condition at Discharge: Stable Plan - Discharge Summary New Discharge Prescriptions: New Cephalexin [Keflex] 500 mg PO Q8HR #63 cap Acetaminophen Tab [Tylenol] 650 mg PO Q6HR PRN tab PRN Reason: Mild Pain Or Fever > 100.5 Continue Metoprolol Tartrate [Lopressor] 25 mg PO BID #60 tab Spironolactone [Aldactone] 25 mg PO DAILY Atorvastatin [Lipitor] 20 mg PO DAILY Lisinopril [Zestril] 10 mg PO HS Apixaban [Eliquis] 2.5 mg PO BID Discontinued Aspirin 325 - 975 mg PO Q6H PRN PRN Reason: Pain Acetaminophen Tab [Tylenol Tab] 1,000 mg PO Q6H PRN MDD see comments PRN Reason: Pain Discharge Medication List Metoprolol Tartrate [Lopressor] 25 mg PO BID #60 tab 05/08/18 [Rx] Atorvastatin [Lipitor] 20 mg PO DAILY 06/03/18 [History] Spironolactone [Aldactone] 25 mg PO DAILY 06/03/18 [History] Lisinopril [Zestril] 10 mg PO HS 09/08/18 [History] Apixaban [Eliquis] 2.5 mg PO BID 03/30/19 [History] Cephalexin [Keflex] 500 mg PO Q8HR #63 cap 06/16/19 [Rx] Acetaminophen Tab [Tylenol] 650 mg PO Q6HR PRN tab 06/17/19 [Rx] Follow up Appointment(s)/Referral(s): Casey Green MD [STAFF PHYSICIAN] - 1 Week Casey Varner MD [Primary Care Provider] - 06/22/19 3:15 pm [facility], [NON-STAFF] - Prasad Walsh MD [STAFF PHYSICIAN] - 06/24/19 4:10 pm Patient Instructions/Handouts: Wound Infection (DC) Activity/Diet/Wound Care/Special Instructions: Wound Vac delivered to patients room. [facility] will apply wound vac at home. Measurements need to be redone every 2 weeks and sent to insurance company, they require the next one to be done on June 28 in order to renew wound vac with insurance company. Wound vac needs to be changed Friday, Friday, Friday to right upper thigh running at 125 continues Right Rosas thera honey gauze change every other day changed last 06/17 Discharge Disposition: HOME WITH HOME HEALTH SERVICES
== END 2019-06-17 12:29 | disposition home health service (06) | DRG 571 ==
LOC: EC 11:36 → 4MS4W 13:09 → OBSVTOIN 06-10 14:15
PROVIDERS: ADMIT Hospitalist; ATTEND Hospitalist
PROC: 0JDL0ZZ Extraction of Right Upper Leg Subcutaneous Tissue and Fascia, Open Approach (ICD-10-PCS; principal; 2019-06-09 14:30)
PROC: 0JBN0ZZ Excision of Right Lower Leg Subcutaneous Tissue and Fascia, Open Approach (ICD-10-PCS; 2019-06-15)
DX: L02.415 Cutaneous abscess of right lower limb (principal); K76.6 Portal hypertension; I50.22 Chronic systolic (congestive) heart failure; L03.115 Cellulitis of right lower limb; F32.9 Major depressive disorder, single episode, unspecified; F17.210 Nicotine dependence, cigarettes, uncomplicated; F41.9 Anxiety disorder, unspecified; I11.0 Hypertensive heart disease with heart failure; I48.91 Unspecified atrial fibrillation; J44.9 Chronic obstructive pulmonary disease, unspecified; K21.9 Gastro-esophageal reflux disease without esophagitis; M19.91 Primary osteoarthritis, unspecified site; I83.893 Varicose veins of bilateral lower extremities with other complications; Z79.01 Long term (current) use of anticoagulants; Z79.899 Other long term (current) drug therapy; Z80.3 Family history of malignant neoplasm of breast; Z87.19 Personal history of other diseases of the digestive system; Z86.19 Personal history of other infectious and parasitic diseases; Z98.890 Other specified postprocedural states
CPT/HCPCS: 10060; 36415; 71046; 80048; 80053; 83605; 85025; 85027; 85652; 86140; 87040; 87070; 87075; 87077; 87186; 87205; 90715; 93005; 96361; 96365; 96367; 96375; 99284

== ENCOUNTER 2023-03-21 07:01 | Emergency (ER) | payer MEDICARE, OTHER ==
[2023-03-21 07:12] VITALS: TEMP 97.7
--- NOTE | 2023-03-21 07:25 | ED ---
General Adult HPI - General Chief complaint: Fall Stated complaint: fall Time Seen by Provider: 03/21/23 07:11 Source: patient, EMS, RN notes reviewed Mode of arrival: EMS Limitations: no limitations - History of Present Illness Initial comments: Patient is a pleasant 62-year-old male presenting to the emergency department for a fall. Patient states he fell around midnight. Patient states he did lightly bump his head. No loss of consciousness. No significant injury. Patient states he called because he had difficulty getting up. Patient states he chronically has difficulty getting up secondary to his weight. Patient does admit to chronically drinking alcohol. Patient denies any confusion. No new weakness. - Related Data Home Medications Medication Instructions Recorded Confirmed Atorvastatin [Lipitor] 20 mg PO DAILY 06/03/18 06/08/19 Spironolactone [Aldactone] 25 mg PO DAILY 06/03/18 06/08/19 lisinopriL [Zestril] 10 mg PO HS 09/08/18 06/08/19 Apixaban [Eliquis] 2.5 mg PO BID 03/30/19 06/08/19 Previous Rx's Medication Instructions Recorded Metoprolol Tartrate [Lopressor] 25 mg PO BID #60 tab 05/08/18 Cephalexin [Keflex] 500 mg PO Q8HR #63 cap 06/16/19 Acetaminophen Tab [Tylenol] 650 mg PO Q6HR PRN tab 06/17/19 Allergies Allergy/AdvReac Type Severity Reaction Status Date / Time No Known Allergies Allergy Verified 06/08/19 16:13 Review of Systems ROS Statement: Those systems with pertinent positive or pertinent negative responses have been documented in the HPI. ROS Other: All systems not noted in ROS Statement are negative. Constitutional: Denies: fever Eyes: Denies: eye pain ENT: Denies: ear pain Respiratory: Denies: cough Cardiovascular: Denies: chest pain Endocrine: Denies: fatigue Gastrointestinal: Denies: abdominal pain Genitourinary: Denies: dysuria Musculoskeletal: Denies: back pain Skin: Denies: rash Neurological: Reports: as per HPI. Denies: headache Past Medical History Past Medical History: Atrial Fibrillation, Atrial Flutter, COPD, GI Bleed, Hypertension, Vascular Disorder Additional Past Medical History / Comment(s): hx Bilateral lower leg edema- "retains water", History of Any Multi-Drug Resistant Organisms: MRSA Date of last positivie culture/infection: 8 YEARS AGO-treated in [facility] MDRO Source:: LEFT ABD Past Surgical History: Bowel Resection, EPS, Heart Catheterization Additional Past Surgical History / Comment(s): Bowel resection d/t a fistula, colonoscopy, EPS and cardioversion, Past Anesthesia/Blood Transfusion Reactions: No Reported Reaction Past Psychological History: Anxiety, Depression Past Alcohol Use History: None Reported, Occasional Past Drug Use History: None Reported - Past Family History Mother Family Medical History: Cancer Additional Family Medical History / Comment(s): breast cancer. Father Family Medical History: Cancer Additional Family Medical History / Comment(s): . General Exam Limitations: no limitations General appearance: alert, in no apparent distress Head exam: Present: atraumatic, normocephalic Eye exam: Present: normal appearance, PERRL, EOMI ENT exam: Present: normal oropharynx Neck exam: Present: normal inspection. Absent: tenderness Respiratory exam: Present: normal lung sounds bilaterally Cardiovascular Exam: Present: regular rate, normal rhythm GI/Abdominal exam: Present: soft. Absent: tenderness Extremities exam: Present: normal inspection, full ROM. Absent: tenderness Neurological exam: Present: alert, oriented X3, CN II-XII intact. Absent: motor sensory deficit Psychiatric exam: Present: normal affect, normal mood Skin exam: Present: normal color Course Vital Signs 03/21/23 03/21/23 07:02 10:18 Temperature 97.7 F Pulse Rate 88 78 Respiratory 20 18 Rate Blood Pressure 144/93 140/68 O2 Sat by Pulse 97 99 Oximetry Medical Decision Making - Medical Decision Making Was pt. sent in by a medical professional or institution (, PA, ICER MACHINE OPERATOR, urgent care, hospital, or correction...) When possible be specific @ -No Did you speak to anyone other than the patient for history (EMS, parent, family, police, friend...)? What history was obtained from this source @ -No Did you review nursing and triage notes (agree or disagree)? Why? @ -I reviewed and agree with nursing and triage notes Were old charts reviewed (outside hosp., previous admission, EMS record, old EKG, old radiological studies, urgent care reports/EKG's, correction records)? Report findings @ -No old charts were reviewed Differential Diagnosis (chest pain, altered mental status, abdominal pain women, abdominal pain men, vaginal bleeding, weakness, fever, dyspnea, syncope, headache, dizziness, GI bleed, back pain, seizure, CVA, palpatations, mental health, musculoskeletal)? @ -Differential Weakness: Hypoglycemia, shock, sepsis, hyponatremia, anemia, infection, AK, ETOH, adverse medicine reaction, overdose, stroke, this is not meant to be an all-inclusive list. EKG interpreted by me (3pts min.). @ -As above X-rays interpreted by me (1pt min.). @ -None done CT interpreted by me (1pt min.). @ -Port reviewed U/S interpreted by me (1pt. min.). @ -None done What testing was considered but not performed or refused? (CT, X-rays, U/S, labs)? Why? @ -None What meds were considered but not given or refused? Why? @ -None Did you discuss the management of the patient with other professionals (professionals i.e. , PA, ICER MACHINE OPERATOR, lab, RT, psych nurse, sr. social media & mobile manager, storekeeper engineering, teacher, correctional officer sergeant, insurance case manager)? Give summary @ -No Was smoking cessation discussed for >3mins.? @ -No Was critical care preformed (if so, how long)? @ -No Were there social determinants of health that impacted care today? How? (Homelessness, low income, unemployed, alcoholism, drug addiction, transportation, low edu. Level, literacy, decrease access to med. care, penitentiary, rehab)? @ -No Was there de-escalation of care discussed even if they declined (Discuss DNR or withdrawal of care, Hospice)? DNR status @ -No What co-morbidities impacted this encounter? (DM, HTN, Smoking, COPD, CAD, Cancer, CVA, ARF, Chemo, Hep., AIDS, mental health diagnosis, sleep apnea, morbid obesity)? @ -None Was patient admitted / discharged? Hospital course, mention meds given and route, prescriptions, significant lab abnormalities, going to OR and other pertinent info. @ -No concern for ischemia. Only concern was for possible hemorrhage with this patient. Patient reevaluated and remained symptom-free. No cervical spine tenderness. Patient is alert and oriented 3 and does demonstrate steady gait. Patient is requesting discharge home. Patient updated on results and need for follow-up. Patient recommended discontinue alcohol Undiagnosed new problem with uncertain prognosis? @ -No Drug Therapy requiring intensive monitoring for toxicity (Heparin, Nitro, Insulin, Cardizem)? @ -No Were any procedures done? @ -No Diagnosis/symptom? @ -Fall Acute, or Chronic, or Acute on Chronic? @ -Acute Uncomplicated (without systemic symptoms) or Complicated (systemic symptoms)? @ -default Side effects of treatment? @ -No Exacerbation, Progression, or Severe Exacerbation? @ -No Poses a threat to life or bodily function? How? (Chest pain, USA, AK, pneumonia, PE, COPD, DKA, ARF, appy, cholecystitis, CVA, Diverticulitis, Homicidal, Suicidal, threat to staff... and all critical care pts) @ -No Disposition Clinical Impression: Fall Disposition: HOME SELF-CARE Condition: Stable Instructions (If sedation given, give patient instructions): Fall Prevention (ED), Abuse of Alcohol (ED) Additional Instructions: Please discontinue alcohol use. Please follow-up to primary care physician in the next day or 2 for recheck. Return for change in mental status, increased weakness or falls, worsening symptoms or any other concerns. Take a multivitamin daily with thiamine. Hold any blood thinners for 24 hours. Is patient prescribed a controlled substance at d/c from ED?: No Referrals: Casey Varner MD [Primary Care Provider] - 1-2 days Time of Disposition: 10:39
--- NOTE | 2023-03-21 08:12 | CT ---
EXAMINATION TYPE: CT brain wo con DATE OF EXAM: 03/21/2023 COMPARISON: None HISTORY: 62-year-old male Fall, ETOH TECHNIQUE: Examination was done in axial plane without intravenous contrast. Coronal and sagittal r econstructions performed. CT DLP: 1232.4 mGycm Automated exposure control for dose reduction was used. FINDINGS: Overall limited by patient's head positioning in the gantry. There is no evidence of acute intracranial hemorrhage, mass, mass-effect, or extra-axial fluid colle ction. There is no effacement of cerebral sulci or basal subarachnoid cisterns. Mild ventricular pro minence likely secondary to central cerebral atrophy. There is some cortical and subcortical hypodens ity posterior superior left parietal lobe as well as the posterior right parieto-occipital junction. There is no midline shift. Suazo-white matter distinction is preserved. Pronounced rightward nasal septal deviation. Otherwise, paranasal sinuses and mastoid air cells well pneumatized. Orbits and globes are intact. IMPRESSION: 1. Limitations due to patient's position. There are areas of hypodensity in the left parietal lobe an d right parieto-occipital junction. Correlate for possible encephalomalacia relating to old vascular or traumatic insults. Subacute or chronic ischemia is in the differential. If concern for subtle acut e ischemia, MRI can be considered. Clinically correlate. 2. No evidence for acute intracranial hemorrhage or midline shift. 3. Mild central cerebral atrophy.
[2023-03-21] MEDS ORDERED: THIAMINE 100 MG/ML 2 ML VIAL IM STA (09:39)
[2023-03-21 15:26] VITALS: BP 140/68; PULSE 78; RESP 18
== END 2023-03-21 11:00 | disposition home or self-care (01) ==
LOC: EC 07:01
DX: S09.90XA Unspecified injury of head, initial encounter (principal); I10 Essential (primary) hypertension; J44.9 Chronic obstructive pulmonary disease, unspecified; I48.91 Unspecified atrial fibrillation; I48.92 Unspecified atrial flutter; Z79.01 Long term (current) use of anticoagulants; Z79.899 Other long term (current) drug therapy; W19.XXXA Unspecified fall, initial encounter
CPT/HCPCS: 70450; 99284; 96372; J3411

== ENCOUNTER 2023-04-26 03:47 | Inpatient (IN) | payer MEDICARE, OTHER ==
[2023-04-26 05:11] LABS: Anisocytosis Slight; Basophils % (A) 1 %; Eosinophils # (A) 0.1 k/uL (0-0.7); Eosinophils % (A) 3 %; HCT 41.9 % (39.0-53.0); HGB 13.6 gm/dL (13.0-17.5); Lymphocytes % (A) 18 %; MCH 28.8 pg (25.0-35.0); MCHC 32.4 g/dL (31.0-37.0); MCV 89.1 fL (80.0-100.0); Mean Platelet Volume 8.3; Monocytes # (A) 0.5 k/uL (0-1.0); Monocytes % (A) 9 %; Neutrophils # (A) 3.6 k/uL (1.3-7.7); Neutrophils % (A) 67 %; Platelet Count 222 k/uL (150-450); RBC 4.71 m/uL (4.30-5.90); RDW 17.2 % (11.5-15.5); WBC 5.4 k/uL (3.8-10.6)
[2023-04-26 05:20] LABS: ALT 11 U/L (4-49); AST 34 U/L (17-59); African American GFR (CKD) >90 (>60 ml/min/1.73 sqM); Albumin 3.8 g/dL (3.5-5.0); Alkaline Phosphatase 92 U/L (38-126); Anion Gap 12 mmol/L; Blood Urea Nitrogen 11 mg/dL (9-20); Calcium 8.3 mg/dL (8.4-10.2); Carbon Dioxide 24 mmol/L (22-30); Chloride 106 mmol/L (98-107); Glucose 73 mg/dL (74-99); Non-African American GFR(CKD) >90 (>60 ml/min/1.73 sqM); Sodium 142 mmol/L (137-145); Total Bilirubin 0.9 mg/dL (0.2-1.3); Total Protein 6.7 g/dL (6.3-8.2)
[2023-04-26 05:27] LABS: NT-Pro-B-Type Natriuretic Pept 753 pg/mL
[2023-04-26 05:39] LABS: Alcohol 352 mg/dL
--- NOTE | 2023-04-26 05:42 | ED ---
Psych HPI - General Chief Complaint: Psychiatric Symptoms Stated Complaint: MENTAL Health Time Seen by Provider: 04/26/23 03:50 Source: EMS Mode of arrival: EMS - History of Present Illness Initial Comments: 62-year-old male with past history of A. fib, hypertension, chronic lower extremity edema presents emergency department reporting that he wants to . He states that he called EMS to get him food out of his fridge as he has been sitting in his chair for several days. Patient states that he has been drinking a fifth of alcohol for the past 3 days because he wants to "drink himself to ". He has not gotten up to use the restroom or bathe. He has not eaten anything. Denies any took his medications today. States that his depression stems from his chronic health issues. Patient repetitively states, "I want to end it all". He denies any homicidal ideations. No hallucinations. He denies any injuries. Patient does have visible intertrigo and chronic lower extremity edema. He denies any chest pain or shortness of breath. No abdominal pain. No other alleviating, precipitating or modifying factors - Related Data Home Medications Medication Instructions Recorded Confirmed Atorvastatin [Lipitor] 20 mg PO DAILY 06/03/18 04/26/23 Spironolactone [Aldactone] 25 mg PO DAILY 06/03/18 04/26/23 lisinopriL [Zestril] 5 mg PO HS 09/08/18 04/26/23 Furosemide [Lasix] 40 mg PO DAILY 04/26/23 04/26/23 Allergies Allergy/AdvReac Type Severity Reaction Status Date / Time No Known Allergies Allergy Verified 04/26/23 14:14 Review of Systems ROS Statement: Those systems with pertinent positive or pertinent negative responses have been documented in the HPI. ROS Other: All systems not noted in ROS Statement are negative. Past Medical History Past Medical History: Atrial Fibrillation, Atrial Flutter, COPD, GI Bleed, Hypertension, Vascular Disorder Additional Past Medical History / Comment(s): hx Bilateral lower leg edema- "retains water", History of Any Multi-Drug Resistant Organisms: MRSA Date of last positivie culture/infection: 8 YEARS AGO-treated in [facility] MDRO Source:: LEFT ABD Past Surgical History: Bowel Resection, EPS, Heart Catheterization Additional Past Surgical History / Comment(s): Bowel resection d/t a fistula, colonoscopy, EPS and cardioversion, Past Anesthesia/Blood Transfusion Reactions: No Reported Reaction Past Psychological History: Anxiety, Depression Past Alcohol Use History: None Reported, Occasional Past Drug Use History: None Reported - Past Family History Mother Family Medical History: Cancer Additional Family Medical History / Comment(s): breast cancer. Father Family Medical History: Cancer Additional Family Medical History / Comment(s): . General Exam General appearance: alert, appears intoxicated Head exam: Present: atraumatic, normocephalic, normal inspection Eye exam: Present: normal appearance, PERRL, EOMI. Absent: scleral icterus, con junctival injection, periorbital swelling ENT exam: Present: normal exam, mucous membranes moist Neck exam: Present: normal inspection. Absent: tenderness, meningismus, lymphadenopathy Respiratory exam: Present: normal lung sounds bilaterally. Absent: respiratory distress, wheezes, rales, rhonchi, stridor Cardiovascular Exam: Present: regular rate, normal rhythm, normal heart sounds. Absent: systolic murmur, diastolic murmur, rubs, gallop, clicks GI/Abdominal exam: Present: other (Intertrigo bilateral groin) Extremities exam: Present: pedal edema (Chronic bilateral lower extremity brawny edema. Excessive skin flaking) Psychiatric exam: Present: depressed, suicidal ideation Course Vital Signs 04/26/23 04/26/23 04/26/23 03:50 09:45 12:30 Temperature 98.2 F 98.0 F Pulse Rate 84 106 H 92 Respiratory 18 20 17 Rate Blood Pressure 158/84 146/76 138/75 O2 Sat by Pulse 97 96 95 Oximetry 04/26/23 15:30 Temperature 98.2 F Pulse Rate 87 Respiratory 20 Rate Blood Pressure 136/72 O2 Sat by Pulse 98 Oximetry Medical Decision Making - Medical Decision Making Was pt. sent in by a medical professional or institution (, PA, MAXILLOFACIAL PROSTHETICS DENTIST, urgent care, hospital, or snf...) When possible be specific @ -No Did you speak to anyone other than the patient for history (EMS, parent, family, police, friend...)? What history was obtained from this source @ -EMS bring the patient in stating that he was suicidal and required psychiatric evaluation Did you review nursing and triage notes (agree or disagree)? Why? @ -I reviewed and agree with nursing and triage notes Were old charts reviewed (outside hosp., previous admission, EMS record, old EKG, old radiological studies, urgent care reports/EKG's, snf records)? Report findings @ -I reviewed patient's old charts. He was last seen in March of this year for a fall Differential Diagnosis (chest pain, altered mental status, abdominal pain women, abdominal pain men, vaginal bleeding, weakness, fever, dyspnea, syncope, headache, dizziness, GI bleed, back pain, seizure, CVA, palpatations, mental health, musculoskeletal)? @ -Differential Mental Health Depression, anxiety, bipolar, psychosis, schizophrenia, borderline personality, situational depression, adjustment disorder, behavioral disorder, brain tumor, malingering, substance abuse, encephalopathy, medication reaction, dementia, hypothyroidism, degenerative neurologic disorder, lupus.... This is not meant to be all-inclusive list EKG interpreted by me (3pts min.). @ -Not done X-rays interpreted by me (1pt min.). @ -None done CT interpreted by me (1pt min.). @ -None done U/S interpreted by me (1pt. min.). @ -None done What testing was considered but not performed or refused? (CT, X-rays, U/S, labs)? Why? @ -None What meds were considered but not given or refused? Why? @ -None Did you discuss the management of the patient with other professionals (professionals i.e. , PA, MAXILLOFACIAL PROSTHETICS DENTIST, lab, RT, psych nurse, social security assessor, structural steel engineer, teacher, assignment officer, pillowcase cutter)? Give summary @ -Discuss the case with Dr. Caballero who will admit the patient with psychiatric consultation Was smoking cessation discussed for >3mins.? @ -No Was critical care preformed (if so, how long)? @ -No Were there social determinants of health that impacted care today? How? (Homelessness, low income, unemployed, alcoholism, drug addiction, transportation, low edu. Level, literacy, decrease access to med. care, senior care, rehab)? @ -Alcohol abuse Was there de-escalation of care discussed even if they declined (Discuss DNR or withdrawal of care, Hospice)? DNR status @ -No What co-morbidities impacted this encounter? (DM, HTN, Smoking, COPD, CAD, Cancer, CVA, ARF, Chemo, Hep., AIDS, mental health diagnosis, sleep apnea, morbid obesity)? @ -Alcoholism, chronic lower extremity edema, obesity Was patient admitted / discharged? Hospital course, mention meds given and route, prescriptions, significant lab abnormalities, going to OR and other pertinent info. @ -Upon arrival patient was placed into room 8. Thorough history and physical exam was performed. Patient repetitively states that he wants to end it all. Laboratory studies are conducted and patient is significantly intoxicated. Patient does qualify for admission with psychiatric consultation. Spoke with Dr. Caballero who was agreeable to admit the patient Undiagnosed new problem with uncertain prognosis? @ -No Drug Therapy requiring intensive monitoring for toxicity (Heparin, Nitro, Insulin, Cardizem)? @ -No Were any procedures done? @ -No Diagnosis/symptom? @ -Acute alcohol intoxication, acute depression with suicidal ideation Acute, or Chronic, or Acute on Chronic? @ -Acute Uncomplicated (without systemic symptoms) or Complicated (systemic symptoms)? @ -Complicated Side effects of treatment? @ -No Exacerbation, Progression, or Severe Exacerbation? @ -No Poses a threat to life or bodily function? How? (Chest pain, USA, MA, pneumonia, PE, COPD, DKA, ARF, appy, cholecystitis, CVA, Diverticulitis, Homicidal, Suicidal, threat to staff... and all critical care pts) @ -Yes, patient is actively suicidal - Lab Data Result diagrams: 04/26/23 04:14 04/26/23 04:14 Lab Results 04/26/23 04/26/23 Range/Units 04:14 04:14 WBC 5.4 (3.8-10.6) k/uL RBC 4.71 (4.30-5.90) m/uL Hgb 13.6 (13.0-17.5) gm/dL Hct 41.9 (39.0-53.0) % MCV 89.1 (80.0-100.0) fL MCH 28.8 (25.0-35.0) pg MCHC 32.4 (31.0-37.0) g/dL RDW 17.2 H (11.5-15.5) % Plt Count 222 (150-450) k/uL MPV 8.3 Neutrophils % 67 % Lymphocytes % 18 % Monocytes % 9 % Eosinophils % 3 % Basophils % 1 % Neutrophils # 3.6 (1.3-7.7) k/uL Lymphocytes # 1.0 (1.0-4.8) k/uL Monocytes # 0.5 (0-1.0) k/uL Eosinophils # 0.1 (0-0.7) k/uL Basophils # 0.0 (0-0.2) k/uL Anisocytosis Slight Sodium 142 (137-145) mmol/L Potassium 4.0 (3.5-5.1) mmol/L Chloride 106 (98-107) mmol/L Carbon Dioxide 24 (22-30) mmol/L Anion Gap 12 mmol/L BUN 11 (9-20) mg/dL Creatinine 0.74 (0.66-1.25) mg/dL Est GFR (CKD-EPI)AfAm >90 (>60 ml/min/1.73 sqM) Est GFR (CKD-EPI)NonAf >90 (>60 ml/min/1.73 sqM) Glucose 73 L (74-99) mg/dL Calcium 8.3 L (8.4-10.2) mg/dL Total Bilirubin 0.9 (0.2-1.3) mg/dL AST 34 (17-59) U/L ALT 11 (4-49) U/L Alkaline Phosphatase 92 (38-126) U/L NT-Pro-B Natriuret Pep 753 pg/mL Total Protein 6.7 (6.3-8.2) g/dL Albumin 3.8 (3.5-5.0) g/dL Serum Alcohol 352 H* mg/dL Disposition Clinical Impression: Depression, Lower extremity edema, Alcohol intoxication Disposition: ADMITTED IP TO THIS [facility] Condition: Stable Is patient prescribed a controlled substance at d/c from ED?: No Time of Disposition: 05:48 Decision to Admit Reason: Admit from EC Decision Date: 04/26/23 Decision Time: 05:48
[2023-04-26] MEDS ORDERED: NALOXONE 0.4 MG/ML 1 ML VIAL IV PRN (05:50)
[2023-04-26] MEDS: NYSTATIN 100,000UNIT/GM CREAM 30 GM TUBE TOPICAL SCH ×3 (06:39→21:02)
--- NOTE | 2023-04-26 10:48 | P.HPIM ---
History of Present Illness H&P Date: 04/26/23 History of Presenting Illness: Patient is a 62-year-old male with a past medical history of chronic atrial fibrillation on anticoagulation with Eliquis, hypertension, peripheral vascular disease with chronic bilateral lower extremity edema, COPD, anxiety, and depression. Patient presented to the emergency department via EMS stating that he "just wants to ". Patient reports he can no longer live this way and just wants to end his life. Patient states he has been drinking more than a fifth of alcohol every day for the last 3-4 days because he just wants to drink himself to . Patient reports no longer able to ambulate or take care of himself or even get herself to the doctor as needed. Patient reports he does not leave his house and cannot even get up to the bathroom or bathe himself. Patient denies having any support system or anybody to assist him. Patient reports he has ran out of his Lasix and Aldactone and the swelling in his legs has just gotten w orse. Patient reports he would just rather than live this way anymore. He denies having any dizziness, lightheadedness, chest pain, palpitations, shortness of breath, nausea, or vomiting. Patient reports he has not ate because he is unable to get out and does not have any food in his home. Patient underwent full evaluation in the emergency department. Vital signs completed. Blood pressure 158/84, heart rate 84, respiratory rate 18, temp 98.2F, SpO2 of 97% on room air. CBC was unremarkable. BMP showing slightly low blood glucose of 73 otherwise normal findings. ProBNP was 753. Alcohol level was elevated at 352. Patient being admitted under our services with consultation to psychiatry. Review of systems: Pertinent positives and negatives as discussed in HPI, a complete review of systems was performed and all other systems are negative. Physical exam: Vital signs reviewed and stable. General: Nontoxic, no distress and appears stated age. Derm: Skin warm and dry, normal coloration for ethnicity. Head: Atraumatic, normocephalic and symmetric. Eyes: EOMs intact, no lid lag, and anicteric sclera Mouth: no lip lesions, mucus membranes moist Cardiovascular: regular rate and rhythm with normal S1S2, no murmur, positive posterior tibial pulses bilaterally, and cap refill < 2 seconds. Lungs: Respirations even, regular, and unlabored on room air. Lungs CTA bilate rally, no rhonchi, no rales, no wheezing, and no accessory muscle usage. Abdominal: Obese abdomen, nontender to palpation, no guarding, no appreciable organomegaly Ext: Movement and sensation intact. 3+ pitting edema to bilateral lower extremities. Neuro: Speech clear, face symmetrical and CN II-XII grossly intact with no noted focal neuro deficits Psych: Alert and oriented to person, place, time, and situation. Appropriate and pleasant affect. Assessment and Plan of Care: Physical deconditioning, with inability to perform activities of daily living independently -Consult placed to case management for assistance with placement and/or safe discharge plan. -Consult placed to physical and occupational therapy for evaluation. -Patient to be provided with safe and supportive care and assistance as needed. -Fall precautions in place. Suicidal ideations Anxiety and depression -Suicide precautions in place. -Psychiatry consulted, appreciate recommendations. Alcohol intoxication -Monitor until clinically sober, unlikely patient will need CIWA protocol as he denies daily drinking reports only drinking the past 3 days as he is depressed and would like to end his life and no longer live this way. Chronic atrial fibrillation Hypertension Hyperlipidemia Peripheral vascular disease with chronic bilateral lower extremity edema COPD, not home oxygen dependent -Continue anticoagulation with Eliquis 5 mg twice daily, atorvastatin 20 mg daily, furosemide 40 mg twice daily, metoprolol 25 mg twice daily, and Aldactone 25 mg daily. -Order placed for FRITZ hose to be placed to bilateral lower extremities to assist with peripheral vascular deficiency and swelling Data reviewed: Vital signs completed. Blood pressure 158/84, heart rate 84, respiratory rate 18, temp 98.2F, SpO2 of 97% on room air. Labs completed and reviewed. CBC was unremarkable. BMP showing slightly low blood glucose of 73 otherwise normal findings. ProBNP was 753. Alcohol level was elevated at 352. Patient being admitted under our services with consultation to psychiatry. The patient is admitted with an anticipated greater than 2 midnight stay for evaluation of physical deconditioning with inability to perform activities of daily living independently, alcohol intoxication and suicidal ideations CODE STATUS: Full code DVT prophylaxis: Eliquis Discussed with: Patient, ED physician and RN Anticipated discharge date: clinical course to determine Anticipated discharge place: likely a longterm facility Patient was seen independently by Nurse Practitioner. This document was prepared using [employer] dictation software. Please allow for errors in information systems specialist while rare they do occur. Casey Hutton NP rendered care for this patient independently, reviewed the findings and plan as documented in the note above. I did not physically speak with or examine the patient on this date. Past Medical History Past Medical History: Atrial Fibrillation, Atrial Flutter, COPD, GI Bleed, Hypertension, Vascular Disorder Additional Past Medical History / Comment(s): hx Bilateral lower leg edema- "retains water", History of Any Multi-Drug Resistant Organisms: MRSA Date of last positivie culture/infection: 8 YEARS AGO-treated in [facility] MDRO Source:: LEFT ABD Past Surgical History: Bowel Resection, EPS, Heart Catheterization Additional Past Surgical History / Comment(s): Bowel resection d/t a fistula, colonoscopy, EPS and cardioversion, Past Anesthesia/Blood Transfusion Reactions: No Reported Reaction Past Psychological History: Anxiety, Depression Past Alcohol Use History: None Reported, Occasional Past Drug Use History: None Reported - Past Family History Mother Family Medical History: Cancer Additional Family Medical History / Comment(s): breast cancer. Father Family Medical History: Cancer Additional Family Medical History / Comment(s): . Medications and Allergies Home Medications Medication Instructions Recorded Confirmed Type Atorvastatin [Lipitor] 20 mg PO DAILY 06/03/18 04/26/23 History Spironolactone [Aldactone] 25 mg PO DAILY 06/03/18 04/26/23 History lisinopriL [Zestril] 5 mg PO HS 09/08/18 04/26/23 History Furosemide [Lasix] 40 mg PO DAILY 04/26/23 04/26/23 History Allergies Allergy/AdvReac Type Severity Reaction Status Date / Time No Known Allergies Allergy Verified 04/26/23 14:14 Physical Exam Vitals: Vital Signs Temp Pulse Resp BP Pulse Ox 04/26/23 03:50 98.2 F 84 18 158/84 97 Intake and Output 04/25/23 04/26/23 04/26/23 22:59 06:59 14:59 Other: Weight 136.078 kg Results CBC & Chem 7: 04/27/23 04:15 04/27/23 04:15 Labs: Abnormal Lab Results - Last 24 Hours (Table) 04/26/23 04/26/23 Range/Units 04:14 04:14 RDW 17.2 H (11.5-15.5) % Glucose 73 L (74-99) mg/dL Calcium 8.3 L (8.4-10.2) mg/dL Serum Alcohol 352 H* mg/dL
[2023-04-26] MEDS: APIXABAN 5 MG TAB PO SCH ×2 (11:43→20:18)
[2023-04-26] MEDS: FUROSEMIDE 40 MG TAB PO SCH ×2 (11:43→17:38)
[2023-04-26] MEDS: SPIRONOLACTONE 25 MG TAB PO SCH (11:43)
[2023-04-26] MEDS: ATORVASTATIN 20 MG TAB PO SCH (11:43)
[2023-04-26] MEDS ORDERED: LORazepam 1 MG TAB PO PRN (12:35)
--- NOTE | 2023-04-26 12:35 | P.CN ---
Psychiatric Consult - . Consult date: 04/26/23 Consult:: 04/26/23 11:39 IDENTIFYING DATA: This patient is a 62-year-old male , currently lives alone in an apartment, he is single, has no kids, he collects Social Security and receives a pension. REASON FOR REFERRAL: Psychiatry was consulted for suicidal ideations. HISTORY OF PRESENT ILLNESS: The patient presented to the hospital on 04/26 has a history of A. fib, CHF, lower extremity edema, was presenting with suicidal ideations as well. Patient was claiming that he is currently sitting in his chair at home for several days, unable to move. Patient apparently called 911 to help him get something from his fridge. He claims that he was drinking alcohol approximately a fifth every day for the past several days. Apparently patient made a comment that he wanted to "drink himself to ". Patient apparently has not been caring for himself at home. His blood alcohol level was 352 on admission. Patient claims that his legs have been more swollen lately and states that "I couldn't get up" and states that he was stuck in his house. He claims that it has been gone worse the past week or so. States that he is taking his medications however was unable to claim which ones he is taking and was fairly evasive about it. He claims that mainly his health stressors that are causing him to feel depressed. He also states that he is having significant mobility issues which are making his mood worse. States that he is feeling depressed, endorses mild anxiety. Denies any history of withdrawal symptoms, claims that his sleep has been poor about 3 hours a night, states that he drinks alcohol to "pass out". Claims his appetite as been on and off . At this time patient denies any suicidal or homical ideations, intent or plan. Patient denies any auditory, visual hallucinations and denies any paranoia or delusions. P atients admits to using cigarettes daily, claims that he has been drinking around 2-3 times a week, denies any history of withdrawal symptoms, claims that he was drinking about a fifth of whiskey a day when he is drinking. As any other recreational drug use. PAST PSYCHIATRIC HISTORY: Patient has a a history of depression, alcohol use. Patient denies being on any psychiatric medications. Patient denies any previous psychiatric hospitalizations. Patient denies any psychiatric outpatient follow- up. Patient denies any history of suicide attempts in the past. Past Medical History: Atrial Fibrillation, Atrial Flutter, COPD, GI Bleed, Hypertension, Vascular Disorder Additional Past Medical History / Comment(s): hx Bilateral lower leg edema- "retains water", History of Any Multi-Drug Resistant Organisms: MRSA Date of last positivie culture/infection: 8 YEARS AGO-treated in [facility] MDRO Source:: LEFT ABD Past Surgical History: Bowel Resection, EPS, Heart Catheterization Additional Past Surgical History / Comment(s): Bowel resection d/t a fistula, colonoscopy, EPS and cardioversion, Past Anesthesia/Blood Transfusion Reactions: No Reported Reaction Past Psychological History: Anxiety, Depression Past Alcohol Use History: None Reported, Occasional Past Drug Use History: None Reported ALLERGIES: as per EMR. CHEMICAL DEPENDENCY HISTORY: as per HPI. FAMILY PSYCHIATRIC/SUBSTANCE USE HISTORY: denies SOCIAL HISTORY: Patient was born and raised in [facility], lived in [place] for 45 years. He states that he recently moved to [place] about 5 years ago and is living in an apartment. He claims that he is living alone, single, denies having any kids, claims he collects pension and also Social Security. He claims that he completed his GED, he used to work at [employer] however is now retired. States that he has been to [facility] in the past for a DUI about 15 years ago. MENTAL STATUS EXAM: General Appearance: Patient appears to be rapidly obese, longer hair, wearing glasses, significant edema on his legs bilaterally, stated age is alert, pleasant, and cooperative. Patient appears to have fair hygiene and grooming wearing hospital gown with fair eye contact. Behavior: Patient is calmly lying in bed without any agitated behavior. Attempts to cooperate. Speech: Patient's speech is fluent and nonpressured. Mood/Affect: Patient reports their mood is "depressed", affect is congruent Suicidality/Homicidality: Patient denies having any suicidal or homicidal ideation intent or plan. Perceptions: Patient denies any visual hallucinations and denies any auditory hallucinations Though content/process: There is no evidence of any delusional thought content and thought process is linear and goal-directed. Rambles at times. Minimizing. Memory and concentration: AOX3, grossly intact for the purposes of this session. Can spell "WORLD" backwards Judgment and insight: poor IMPRESSIONS: Depressive disorder unspecified Alcohol use disorder Nicotine dependence PLAN: -At this time patient DOES NOT meet criteria for inpatient psychiatric admission. -Would recommend the following medication changes/additions: Zoloft 50 mg daily at bedtime for mood/anxiety, trazodone 50 mg daily at bedtime for insomnia/mood, naltrexone by mouth 50 mg daily for alcohol cravings. -CIWA protocol with PRN Ativan for alcohol withdrawal. Continue to monitor vital signs. -ironworker foreman to provide patient with outpatient mental health/psychiatry resources for appropriate follow up upon discharge -Loss Mitigation Specialist spoke with patient about substance abuse and the harmful effects on me dical and mental health, patient verbally understood and agreed. -ironworker foreman to provide patient substance use treatment resources including AA/NA meetings in the community. -Asked nurse to place SW/CM consultation for help with placement and/or home health services as patient has poor mobility and poor self care at home, high liklihood for rehospitalization. -Communicated plan to patient's nurse -Psychiatry will sign off at this time -Please contact with any questions. 04/26/23 12:28
[2023-04-26] MEDS ORDERED: ONDANSETRON 4 MG/2 ML VIAL IVP STA (20:10)
[2023-04-26] MEDS: traZODone HCL 50 MG TAB PO SCH (20:18)
[2023-04-26] MEDS: METOPROLOL TARTRATE 25 MG TAB PO SCH (20:18)
[2023-04-26] MEDS: SERTRALINE 50 MG TAB PO SCH (20:18)
[2023-04-26 21:14] LABS: Glucose,Whole Blood 123 mg/dL (70-110)
[2023-04-27 08:25] LABS: Glucose,Whole Blood 110 mg/dL (70-110)
[2023-04-27] MEDS: SPIRONOLACTONE 25 MG TAB PO SCH (09:34)
[2023-04-27] MEDS: NALTREXONE HCL 50 MG TAB PO SCH (09:34)
[2023-04-27] MEDS: APIXABAN 5 MG TAB PO SCH ×2 (09:34→21:29)
[2023-04-27] MEDS: METOPROLOL TARTRATE 25 MG TAB PO SCH ×2 (09:34→21:29)
[2023-04-27] MEDS: ATORVASTATIN 20 MG TAB PO SCH (09:34)
[2023-04-27] MEDS: FUROSEMIDE 40 MG TAB PO SCH ×2 (09:34→15:57)
[2023-04-27] MEDS: NYSTATIN 100,000UNIT/GM CREAM 30 GM TUBE TOPICAL SCH ×3 (09:35→21:29)
[2023-04-27 13:25] LABS: Basophils # (A) 0.05 X 10*3/uL (0.00-0.10); Eosinophils # (A) 0 X 10*3/uL (0.04-0.35); Eosinophils % (A) 0 %; HCT 39.7 % (39.6-50.0); HGB 12.7 d/dL (13.0-17.0); Lymphocytes # (A) 0.41 X 10*3/uL (0.90-5.00); Lymphocytes % (A) 8.1 %; MCH 27.9 pg (27.0-32.0); MCV 87.3 FL (80.0-97.0); Mean Platelet Volume 9.8 FL (9.5-12.2); Monocytes % (A) 9.9 %; NRBC Per 100 WBC 0 X 10*3/uL (0.00-0.01); Neutrophils # (A) 4.06 X 10*3/uL (1.80-7.70); Neutrophils % (A) 80.2 %; Platelet Count 198 X 10*3/uL (140-440); RBC 4.55 X 10*6/uL (4.40-5.60); RDW 17.5 % (11.5-14.5); WBC 5.06 X 10*3/uL (4.50-10.00)
[2023-04-27 13:45] LABS: ALT 8 U/L (10-49); AST 26 U/L (14-35); Albumin 3.6 d/dL (3.8-4.9); Albumin/Globulin Ratio 1.57 Ratio (1.60-3.17); Alkaline Phosphatase 89 U/L (41-126); Calcium 8.2 mg/dL (8.7-10.3); Carbon Dioxide 29.8 mmol/L (21.6-31.8); Chloride 95 mmol/L (96-109); Globulin 2.3 d/dL (1.6-3.3); Glucose 119 mg/dL (70-110); Magnesium 1.1 mg/dL (1.5-2.4); Potassium 3.6 mmol/L (3.5-5.5); Sodium 138 mmol/L (135-145); Total Bilirubin 1.5 mg/dL (0.3-1.2); Total Protein 5.9 d/dL (6.2-8.2)
--- NOTE | 2023-04-27 18:21 | P.PN ---
Subjective Progress Note Date: 04/27/23 Hospital Course: Patient is a 62-year-old male with a past medical history of chronic atrial fibrillation on anticoagulation with Eliquis, hypertension, peripheral vascular disease with chronic bilateral lower extremity edema, COPD, anxiety, and depression. Patient presented to the emergency department via EMS stating that he "just wants to ". Patient reports he can no longer live this way and just wants to end his life. Patient states he has been drinking more than a fifth of alcohol every day for the last 3-4 days because he just wants to drink himself to . Patient reports no longer able to ambulate or take care of himself or even get herself to the doctor as needed. Patient reports he does not leave his house and cannot even get up to the bathroom or bathe himself. Patient denies having any support system or anybody to assist him. Patient reports he has ran out of his Lasix and Aldactone and the swelling in his legs has just gotten worse. Patient reports he would just rather than live this way anymore. He denies having any dizziness, lightheadedness, chest pain, palpitations, shortness of breath, nausea, or vomiting. Patient reports he has not ate because he is unable to get out and does not have any food in his home. Patient underwent full evaluation in the emergency department. Vital signs completed. Blood pressure 158/84, heart rate 84, respiratory rate 18, temp 98.2F, SpO2 of 97% on room air. CBC was unremarkable. BMP showing slightly low blood glucose of 73 otherwise normal findings. ProBNP was 753. Alcohol level was elevated at 352. Patient was admitted under our services with consultation to psychiatry. Physical exam: Patient seen and fully evaluated at bedside this morning. Patient appears more comfortable with this morning. He currently denies having any suicidal ideations or thoughts. Vital signs reviewed and stable. General: Nontoxic, no distress and appears stated age. Derm: Skin warm and dry, normal coloration for ethnicity. Head: Atraumatic, normocephalic and symmetric. Eyes: EOMs intact, no lid lag, and anicteric sclera Mouth: no lip lesions, mucus membranes moist Cardiovascular: regular rate and rhythm with normal S1S2, no murmur, positive posterior tibial pulses bilaterally, and cap refill < 2 seconds. Lungs: Respirations even, regular, and unlabored on room air. Lungs CTA bilater ally, no rhonchi, no rales, no wheezing, and no accessory muscle usage. Abdominal: Obese abdomen, nontender to palpation, no guarding, no appreciable organomegaly Ext: Movement and sensation intact. 2-3+ pitting edema to bilateral lower extremities with significant scaling skin, no open ulcers noted. Neuro: Speech clear, face symmetrical and CN II-XII grossly intact with no noted focal neuro deficits Psych: Alert and oriented to person, place, time, and situation. Appropriate and pleasant affect. Assessment and Plan of Care: Physical deconditioning, with inability to perform activities of daily living independently -Consult placed to case management for assistance with placement and/or safe discharge plan. -Consult placed to physical and occupational therapy for evaluation. -Patient to be provided with safe and supportive care and assistance as needed. -Fall precautions in place. Suicidal ideations Anxiety and depression -Suicide precautions in place. -Psychiatry consulted, appreciate recommendations. Alcohol intoxication, patient clinically sober at this time. -Monitor until clinically sober, unlikely patient will need CIWA protocol as he denies daily drinking reports only drinking the past 3 days as he is depressed and would like to end his life and no longer live this way. Chronic atrial fibrillation Hypertension Hyperlipidemia Peripheral vascular disease with chronic bilateral lower extremity edema COPD, not home oxygen dependent -Continue anticoagulation with Eliquis 5 mg twice daily, atorvastatin 20 mg daily, furosemide 40 mg twice daily, metoprolol 25 mg twice daily, and Aldactone 25 mg daily. -Elevate lower extremities and FRITZ hose to be placed to bilateral lower extremities to assist with peripheral vascular deficiency and swelling -Order placed for Eucerin cream to be applied to bilateral lower extremities and feet 4 times daily Data reviewed: Vital signs completed. Blood pressure 134/90, heart rate 86, respiratory rate 18, temp 90.7F, SpO2 of 94% on room air. Labs completed and reviewed. CBC was unremarkable. BMP showing mild hypochloremia with chloride of 95 otherwise normal findings. Liver profile showing elevated total bili of 1.5. CODE STATUS: Full code DVT prophylaxis: Eliquis Discussed with: Patient and RN Anticipated discharge date: Pending placement Anticipated discharge place: likely [facility] facility Patient was seen independently by Nurse Practitioner. This document was prepared using [employer] dictation software. Please allow for errors in fish tender while rare they do occur. Casey Hutton NP rendered care for this patient independently, reviewed the findings and plan as documented in the note above. I did not physically speak with or examine the patient on this date. Objective - Vital Signs Vital signs: Vital Signs Temp 98.7 F 04/27/23 08:24 Pulse 86 04/27/23 08:40 Resp 18 04/27/23 08:40 BP 134/90 04/27/23 08:24 Pulse Ox 94 L 04/27/23 02:00 FiO2 Intake & Output 04/26/23 04/27/23 04/27/23 18:59 06:59 18:59 Intake Total 1390 Output Total 1400 Balance -10 Weight 136.078 kg Intake: Oral 1390 Output: Urine 1400 Other: Voiding Method External Catheter External Catheter # Voids 1 1 - Labs CBC & Chem 7: 04/27/23 04:15 04/27/23 04:15 Labs: Abnormal Lab Results - Last 24 Hours (Table) 04/26/23 Range/Units 21:08 POC Glucose (mg/dL) 123 H (70-110) mg/dL
[2023-04-27] MEDS: SERTRALINE 50 MG TAB PO SCH (21:29)
[2023-04-27] MEDS: traZODone HCL 50 MG TAB PO SCH (21:29)
[2023-04-27] MEDS: MINERAL OIL-WHITE PETROLATUM 120 GM JAR TOPICAL SCH (21:29)
[2023-04-28 07:08] LABS: Glucose,Whole Blood 111 mg/dL (70-110)
[2023-04-28] MEDS: NALTREXONE HCL 50 MG TAB PO SCH (08:47)
[2023-04-28] MEDS: ATORVASTATIN 20 MG TAB PO SCH (08:47)
[2023-04-28] MEDS: APIXABAN 5 MG TAB PO SCH ×2 (08:47→20:22)
[2023-04-28] MEDS: SPIRONOLACTONE 25 MG TAB PO SCH (08:47)
[2023-04-28] MEDS: METOPROLOL TARTRATE 25 MG TAB PO SCH ×2 (08:47→20:22)
[2023-04-28] MEDS: FUROSEMIDE 40 MG TAB PO SCH ×2 (08:47→16:57)
[2023-04-28] MEDS: NYSTATIN 100,000UNIT/GM CREAM 30 GM TUBE TOPICAL SCH ×3 (08:48→21:52)
[2023-04-28] MEDS: MINERAL OIL-WHITE PETROLATUM 120 GM JAR TOPICAL SCH ×4 (08:48→21:53)
[2023-04-28 08:59] LABS: Anisocytosis Slight; HCT 42.4 % (39.0-53.0); MCH 29.2 pg (25.0-35.0); MCHC 32.9 g/dL (31.0-37.0); MCV 88.5 fL (80.0-100.0); Mean Platelet Volume 8.2; Platelet Count 153 k/uL (150-450); RBC 4.79 m/uL (4.30-5.90); RDW 16.8 % (11.5-15.5)
[2023-04-28 09:14] LABS: ALT 12 U/L (4-49); AST 29 U/L (17-59); African American GFR (CKD) >90 (>60 ml/min/1.73 sqM); Albumin 3.3 g/dL (3.5-5.0); Albumin/Globulin Ratio 1.1; Alkaline Phosphatase 83 U/L (38-126); Anion Gap 8 mmol/L; Blood Urea Nitrogen 17 mg/dL (9-20); Calcium 7.4 mg/dL (8.4-10.2); Carbon Dioxide 33 mmol/L (22-30); Chloride 92 mmol/L (98-107); Glucose 99 mg/dL (74-99); Non-African American GFR(CKD) >90 (>60 ml/min/1.73 sqM); Phosphorus 3.4 mg/dL (2.5-4.5); Potassium 3.4 mmol/L (3.5-5.1); Sodium 133 mmol/L (137-145); Total Bilirubin 1.8 mg/dL (0.2-1.3); Total Protein 6.3 g/dL (6.3-8.2)
[2023-04-28 09:24] LABS: Magnesium 0.9 mg/dL (1.6-2.3)
[2023-04-28] MEDS: NYSTATIN 100,000 UNIT/GM POWD 15 GM TOPICAL SCH ×3 (11:41→21:52)
[2023-04-28 13:21] VITALS: BMI 40.6
[2023-04-28] MEDS: MAGNESIUM SULFATE-D5W PMX 1 GM in DEXTROSE/WATER 1 100ML.BAG IVPB SCH ×5 (13:32→21:52)
[2023-04-28] MEDS ORDERED: POTASSIUM CHLORIDE ER 20 MEQ TAB.ER PO STA (19:01)
--- NOTE | 2023-04-28 19:08 | P.PN ---
Subjective Progress Note Date: 04/28/23 (delayed charting seen at 0945) Patient is a 62-year-old male with chronic atrial fibrillation on anticoagulation with Eliquis, hypertension, peripheral vascular disease with chronic bilateral lower extremity edema, COPD, and depression who came to the emergency department due to debility adn his frustration wtih life.the emergency department he underwent an extensive evaluation. Laboratory analysis was essentially unremarkable other than alcohol level CCCLII. Patient was admitted and psychiatry was consulted. He was started on CIWA protocol. Patient seen and examined at bedside. He states that he is feeling very weak. He was unable to do much after getting up with therapy. He got extremely lightheaded winded and diaphoretic. He reports that he drinks heavily on the weekends Friday and Friday approximately 3 5ths. 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 Vital signs reviewed General: nontoxic, no distress, appears older than stated age, malodorous Cardiovascular: S1S2 reg, no murmur, positive posterior tibial pulse bilateral, Lungs: Decreased breath sounds bilateral, no rhonchi, no rales , no accessory muscle use Abdominal: soft, nontender to palpation, no guarding, no appreciable organomegaly Ext: no gross muscle atrophy, bilateral lower extremity nonpitting edema, skin darkening consistent with peripheral arterial disease, no contractures Neuro: CN II-XI grossly intact, no focal neuro deficits Psych: Alert, oriented, appropriate affect Assessment/Plan: Severe weakness suspect secondary to electrolyte imbalance and deconditioning Severe hypomagnesemia Hypokalemia -4 g of magnesium IV piggyback -Potassium chloride 40 mEq by mouth 1 Depression -Denies suicidal ideation with psychiatry -Does not require inpatient admission. Recommended Zoloft 50 mg daily, trazodone 50 mg at night, and naltrexone 50 mg daily Alcohol withdrawal -Start Librium 10 mg 4 times daily -Continue with Ativan 1 mg by mouth for CIWA scale 10-15 -Continue with naltrexone 50 mg daily Acute exacerbation of systolic congestive heart failure last on ejection fraction 45% Chronic A. fib Dyslipidemia -Patient has been restarted on his oral Lasix 40 mg twice daily and Aldactone, 25 mg oral daily. It appears that this oral regimen is working as he reports improvement in his lower extremity edema. Patient ran out of both of these medications at home. - check echo -Eliquis 5 mg twice daily, Metoprolol 25 mg twice daily -Lipitor 20 mg daily Chronic: COPD without exacerbation Imaging: None new Data Review: Labs reviewed including CBC, CMP, magnesium which were remarkable for sodium 133, potassium 3.4, carbon dioxide 33, magnesium 0.9, total bilirubin 1.8 DVT prophylaxis: Eliquis Anticipated discharge date: [address]: Rehab This dictation was prepared using [employer] voice recognition software. Though every attempt is made to correct errors during dictation some may still exist. Objective - Vital Signs Vital signs: Vital Signs Temp 98.3 F 04/28/23 12:48 Pulse 63 04/28/23 12:48 Resp 16 04/28/23 12:48 BP 119/81 04/28/23 12:48 Pulse Ox 97 04/28/23 12:48 FiO2 Intake & Output 04/28/23 04/28/23 04/29/23 06:59 18:59 06:59 Intake Total 600 200 Output Total 1200 Balance -600 200 Weight 136.078 kg Intake: Intake, IV Titration 200 Amount Magnesium Sulfate-D5w Pmx 200 1 gm In Dextrose/Water 1 100ml.bag @ 100 mls/hr IVPB Q1H [facility] Rx#: [id number] Oral 600 Output: Urine 1200 Other: Voiding Method External Catheter External Catheter # Bowel Movements 1 10 - Labs CBC & Chem 7: 04/28/23 08:46 04/28/23 08:46 Labs: Abnormal Lab Results - Last 24 Hours (Table) 04/28/23 04/28/23 04/28/23 Range/Units 07:07 08:46 08:46 RDW 16.8 H (11.5-15.5) % Sodium 133 L (137-145) mmol/L Potassium 3.4 L (3.5-5.1) mmol/L Chloride 92 L (98-107) mmol/L Carbon Dioxide 33 H (22-30) mmol/L POC Glucose (mg/dL) 111 H (70-110) mg/dL Calcium 7.4 L (8.4-10.2) mg/dL Magnesium 0.9 L* (1.6-2.3) mg/dL Total Bilirubin 1.8 H (0.2-1.3) mg/dL Albumin 3.3 L (3.5-5.0) g/dL
[2023-04-28] MEDS: SERTRALINE 50 MG TAB PO SCH (20:23)
[2023-04-28] MEDS: traZODone HCL 50 MG TAB PO SCH (20:23)
[2023-04-29 07:26] LABS: Anisocytosis Slight; HCT 41.9 % (39.0-53.0); HGB 13.6 gm/dL (13.0-17.5); MCH 28.9 pg (25.0-35.0); MCHC 32.6 g/dL (31.0-37.0); MCV 88.6 fL (80.0-100.0); Mean Platelet Volume 9.2; Platelet Count 138 k/uL (150-450); RBC 4.72 m/uL (4.30-5.90); RDW 16.7 % (11.5-15.5); WBC 5.7 k/uL (3.8-10.6)
[2023-04-29 07:31] LABS: ALT 10 U/L (4-49); AST 30 U/L (17-59); African American GFR (CKD) 90 (>60 ml/min/1.73 sqM); Albumin 3.6 g/dL (3.5-5.0); Albumin/Globulin Ratio 1.2; Alkaline Phosphatase 85 U/L (38-126); Anion Gap 9 mmol/L; Blood Urea Nitrogen 22 mg/dL (9-20); Calcium 7.7 mg/dL (8.4-10.2); Carbon Dioxide 33 mmol/L (22-30); Chloride 90 mmol/L (98-107); Glucose 118 mg/dL (74-99); Magnesium 1.8 mg/dL (1.6-2.3); Non-African American GFR(CKD) 78 (>60 ml/min/1.73 sqM); Potassium 3.4 mmol/L (3.5-5.1); Sodium 132 mmol/L (137-145); Total Bilirubin 1.8 mg/dL (0.2-1.3); Total Protein 6.6 g/dL (6.3-8.2)
[2023-04-29] MEDS ORDERED: MAGNESIUM SULFATE-D5W PMX 1 GM in DEXTROSE/WATER 1 100ML.BAG IVPB ONE (08:13)
[2023-04-29] MEDS ORDERED: POTASSIUM CHLORIDE ER 20 MEQ TAB.ER PO STA (08:13)
[2023-04-29] MEDS: SPIRONOLACTONE 25 MG TAB PO SCH (09:32)
[2023-04-29] MEDS: METOPROLOL TARTRATE 25 MG TAB PO SCH ×2 (09:32→21:46)
[2023-04-29] MEDS: FUROSEMIDE 40 MG TAB PO SCH (09:32)
[2023-04-29] MEDS: APIXABAN 5 MG TAB PO SCH (09:32)
[2023-04-29] MEDS: NALTREXONE HCL 50 MG TAB PO SCH (09:32)
[2023-04-29] MEDS: MINERAL OIL-WHITE PETROLATUM 120 GM JAR TOPICAL SCH ×4 (09:32→21:43)
[2023-04-29] MEDS: ATORVASTATIN 20 MG TAB PO SCH (09:32)
[2023-04-29] MEDS: NYSTATIN 100,000UNIT/GM CREAM 30 GM TUBE TOPICAL SCH ×3 (09:33→21:43)
[2023-04-29] MEDS: NYSTATIN 100,000 UNIT/GM POWD 15 GM TOPICAL SCH ×3 (09:33→21:43)
--- NOTE | 2023-04-29 14:02 | P.DS ---
Providers Date of admission: 04/28/23 12:16 Expected date of discharge: 04/29/23 Attending physician: Brain Caballero MD Consults: 04/26/23 05:50 Consult Physician Urgent Consulting Provider: Yuri Sorensen Consult Reason/Comments: suicidal ideations Do you want consulting provider notified?: Yes Primary care physician: Casey Varner Hospital Course: Discharge Diagnosis: Severe weakness secondary to electrolyte imbalance and deconditioning Severe hypomagnesemia Acute alcohol intoxication with impending alcohol withdrawal Hypokalemia Depression Acute exacerbation of systolic congestive heart failure last on ejection fraction 45% Chronic A. fib- CHADSVASc is 1 and therefore ASA 81 mg daily is irdered. Dyslipidemia COPD without exacerbation Hospital Course: Patient is a 62-year-old male with chronic atrial fibrillation on anticoagulation with Eliquis, hypertension, peripheral vascular disease with chronic bilateral lower extremity edema, COPD, and depression who came to the emergency department due to debility adn his frustration wtih life.the emergency department he underwent an extensive evaluation. Laboratory analysis was essentially unremarkable other than alcohol level 352. Patient was admitted and psychiatry was consulted. He was started on CIWA protocol adn then librium. He was cleared by psychiatry for discharge. Initially had wanted to go to subacute rehab as his profoundly weak. However after replacement of magnesium he was able to ambulate to the bathroom unassisted. He continued to do well. He diuresed well with the resumption of his home Lasix and Aldactone. Echocardiogram was ordered however patient refused echo. He was feeling good enough for discharge. His CHADS VASC was 1 and it was determined with his low CHADSVasc and his bine drinking pattern that at this time risks/benefits for anticoagulation. This should be readressed if he is able to maintain soberity. It was subsequently determined stable for discharge home. He did refuse both long-term facility and home health care. He states he will continue to follow with Dr. Varner. . Patient is at high risk for readmission due to his complicated social situations including difficulty with driving to appointments. Follow-up: He'll follow-up with Dr. Varner in 2-3 days, she'll follow up with Flip Matias from cardiology, he was given prescription for his Lasix was decreased to 20 mg daily as patient had significant diuresis with 40 mg of Lasix. Aldactone 25 mg oral daily, Metoprolol 12.5 mg PO twice daily, and Lipitor 20 mg daily. He should follow up with Dr. Varner in the next 1-2 weeks was suggested a repeat renal function testing at that time. Naltrexone was suggested for discharge but this will not be started as bilirubin is 1.8, and I have concerns for hepatic dysfunction and this could be considered in the outpatient setting if he is able to successfully follow up with Dr. Varner. Again due to these concerns of adequate follow-up he will only be prescribed 2 weeks of his medications. Additional medications prescribed by psychiatry are Zoloft 50 mg at night and trazodone 50 mg at night Walker use: Patient has mobility limitation that significantly impairs his abilities to participate in activities of daily living at home, patient can safely use a walker to be able to complete his activities of daily living and resolve his functional mobility deficits. Patient seen and examined at bedside. He is feeling well, weakness if much improved with magnesium supplementation. He has no chest pain, his lower extremity edema is resolved. Vital signs reviewed and stable. General: nontoxic, no distress, appears at stated age Cardiovascular: S1S2 reg, no murmur, positive posterior tibial pulse bilateral, Lungs: CTA bilateral, no rhonchi, no rales , no accessory muscle use Abdominal: soft, nontender to palpation, no guarding, no appreciable organomegaly Ext: no gross muscle atrophy, trace edema b/l lower extremities, no contractures, b/l chronic venous stasis changes. Neuro: CN II-XI grossly intact, no focal neuro deficits Psych: Alert, oriented, appropriate affect A total of 35 minutes of time were spent preparing this complex discharge summary. Patient was discharged on 04/29/23. This dictation was prepared using [employer] voice recognition software. Though every attempt is made to correct errors during dictation some may still exist. Patient Condition at Discharge: Stable Plan - Discharge Summary Discharge Rx Participant: No New Discharge Prescriptions: New traZODone HCL [Desyrel] 50 mg PO HS #30 tab Furosemide [Lasix] 20 mg PO DAILY #14 tab Metoprolol Tartrate [Lopressor] 12.5 mg PO BID 14 Days #28 tablet Folic Acid 1 mg PO DAILY #14 tablet Magnesium Oxide [Mag-Ox] 400 mg PO DAILY #14 tablet Thiamine [Vitamin B-1] 100 mg PO DAILY #14 tablet Sertraline [Zoloft] 50 mg PO HS #30 tab Continue Spironolactone [Aldactone] 25 mg PO DAILY #14 tab Atorvastatin [Lipitor] 20 mg PO DAILY #30 tab Discontinued lisinopriL [Zestril] 5 mg PO HS Furosemide [Lasix] 40 mg PO DAILY Discharge Medication List Atorvastatin [Lipitor] 20 mg PO DAILY #30 tab 04/29/23 [Rx] Folic Acid 1 mg PO DAILY #14 tablet 04/29/23 [Rx] Furosemide [Lasix] 20 mg PO DAILY #14 tab 04/29/23 [Rx] Magnesium Oxide [Mag-Ox] 400 mg PO DAILY #14 tablet 04/29/23 [Rx] Metoprolol Tartrate [Lopressor] 12.5 mg PO BID 14 Days #28 tablet 04/29/23 [Rx] Sertraline [Zoloft] 50 mg PO HS #30 tab 04/29/23 [Rx] Spironolactone [Aldactone] 25 mg PO DAILY #14 tab 04/29/23 [Rx] Thiamine [Vitamin B-1] 100 mg PO DAILY #14 tablet 04/29/23 [Rx] traZODone HCL [Desyrel] 50 mg PO HS #30 tab 04/29/23 [Rx] Follow up Appointment(s)/Referral(s): Casey Varner MD [Primary Care Provider] - 1-2 days (please call the office to schedule a follow up appointment.) Alexandre Matias MD [STAFF PHYSICIAN] - 1 Week Discharge/Stand Alone Forms: AA Meetings [place], Who Do I Call?, Community Resources, Outpatient Counseling
[2023-04-29 15:02] LABS: Appearance,Urine Cloudy (Clear); Bacteria,Urine Rare /hpf; Color,Urine Dark Yellow; RBC,Urine 141 /hpf (0-5); Squamous Epithelial Cell,Urine <1 /hpf (0-4); WBC,Urine 11 /hpf (0-5)
[2023-04-29 15:03] LABS: Bilirubin,Urine Negative (Negative); Blood,Urine Large (Negative); Glucose,Urine (UA) Negative (Negative); Ketones,Urine Negative (Negative); Leukocyte Esterase,Urine Moderate (Negative); Nitrite,Urine Negative (Negative); Protein,Urine Negative (Negative); Specific Gravity,Urine 1.015 (1.001-1.035)
[2023-04-29 17:48] LABS: Glucose,Whole Blood 103 mg/dL (70-110)
[2023-04-29 19:21] LABS: Anisocytosis Slight; Basophils % (A) 0 %; Eosinophils # (A) 0.2 k/uL (0-0.7); Eosinophils % (A) 3 %; HCT 39.2 % (39.0-53.0); HGB 12.9 gm/dL (13.0-17.5); Lymphocytes % (A) 15 %; MCH 29.1 pg (25.0-35.0); MCHC 32.9 g/dL (31.0-37.0); MCV 88.6 fL (80.0-100.0); Mean Platelet Volume 9.6; Monocytes # (A) 0.4 k/uL (0-1.0); Monocytes % (A) 6 %; Neutrophils # (A) 4.8 k/uL (1.3-7.7); Neutrophils % (A) 74 %; Platelet Count 144 k/uL (150-450); RBC 4.42 m/uL (4.30-5.90); RDW 17.1 % (11.5-15.5); WBC 6.5 k/uL (3.8-10.6)
[2023-04-29] MEDS: SERTRALINE 50 MG TAB PO SCH (21:41)
[2023-04-29] MEDS: traZODone HCL 50 MG TAB PO SCH (21:41)
[2023-04-30] MEDS: NALTREXONE HCL 50 MG TAB PO SCH (08:00)
[2023-04-30] MEDS: SPIRONOLACTONE 25 MG TAB PO SCH (08:00)
[2023-04-30] MEDS: FUROSEMIDE 40 MG TAB PO SCH (08:00)
[2023-04-30] MEDS: NYSTATIN 100,000 UNIT/GM POWD 15 GM TOPICAL SCH (08:01)
[2023-04-30] MEDS: NYSTATIN 100,000UNIT/GM CREAM 30 GM TUBE TOPICAL SCH (08:01)
[2023-04-30] MEDS: METOPROLOL TARTRATE 25 MG TAB PO SCH (08:01)
[2023-04-30] MEDS: MINERAL OIL-WHITE PETROLATUM 120 GM JAR TOPICAL SCH ×2 (08:01→12:21)
[2023-04-30] MEDS: ATORVASTATIN 20 MG TAB PO SCH (08:01)
[2023-04-30 08:03] VITALS: RESP 18
--- NOTE | 2023-04-30 09:15 | P.GSCN ---
History of Present Illness Consult date: 04/30/23 History of present illness: 62 yo [facility] for [facility] issues. Upon discharge he noticed hematuria and we were consulted. No imaging has been done the ua shows hematuria with asmall amount of pyuria. Patient denies previous urologic issues. He has no difficulty urinating other than frequency related to diuretics. He has no history of hematuria dysuria frequency. He is never seen a urologist. There is no history kidney stones. There is no history of urologic procedures. He has not been on blood thinners. Review of Systems All systems: negative - Constitutional Denies fever, Denies weight loss - EENT Eyes: denies blurred vision Ears, nose, mouth and throat: Denies dysphagia - Cardiovascular Denies chest pain, Denies shortness of breath - Respiratory Denies cough, Denies 7 - Gastrointestinal Reports as per HPI - Genitourinary Denies dysuria, Denies hematuria - Integumentary Denies rash, Denies unusual bruising - Neurological Denies headaches, Denies syncope - Hematologic/Lymphatic Denies easy bleeding, Denies easy bruising Past Medical History Past Medical History: Atrial Fibrillation, Atrial Flutter, COPD, GI Bleed, Hypertension, Vascular Disorder Additional Past Medical History / Comment(s): hx Bilateral lower leg edema- "retains water", History of Any Multi-Drug Resistant Organisms: MRSA Year Discovered:: 8 YEARS AGO-treated in [facility] MDRO Source:: LEFT ABD Past Surgical History: Bowel Resection, EPS, Heart Catheterization Additional Past Surgical History / Comment(s): Bowel resection d/t a fistula, colonoscopy, EPS and cardioversion, Past Anesthesia/Blood Transfusion Reactions: No Reported Reaction Past Psychological History: Anxiety, Depression Past Alcohol Use History: None Reported, Occasional Past Drug Use History: None Reported - Past Family History Mother Family Medical History: Cancer Additional Family Medical History / Comment(s): breast cancer. Father Family Medical History: Cancer Additional Family Medical History / Comment(s): . Medications and Allergies Home Medications Medication Instructions Recorded Confirmed Type Atorvastatin [Lipitor] 20 mg PO DAILY #30 tab 04/29/23 Rx Folic Acid 1 mg PO DAILY #14 tablet 04/29/23 Rx Furosemide [Lasix] 20 mg PO DAILY #14 tab 04/29/23 Rx Magnesium Oxide [Mag-Ox] 400 mg PO DAILY #14 tablet 04/29/23 Rx Metoprolol Tartrate [Lopressor] 12.5 mg PO BID 14 Days #28 tablet 04/29/23 Rx Sertraline [Zoloft] 50 mg PO HS #30 tab 04/29/23 Rx Spironolactone [Aldactone] 25 mg PO DAILY #14 tab 04/29/23 Rx Thiamine [Vitamin B-1] 100 mg PO DAILY #14 tablet 04/29/23 Rx traZODone HCL [Desyrel] 50 mg PO HS #30 tab 04/29/23 Rx Allergies Allergy/AdvReac Type Severity Reaction Status Date / Time No Known Allergies Allergy Verified 04/26/23 14:14 Surgical - Exam Vital Signs Temp Pulse Resp BP Pulse Ox 98.2 F 84 18 158/84 97 04/26/23 03:50 04/26/23 03:50 04/26/23 03:50 04/26/23 03:50 04/26/23 03:50 - General obese - Eyes normal ocular movement, no icteric - ENT no hearing loss, no congestion - Neck no masses, trachea midline - Respiratory normal respiratory effort, clear to auscultation - Abdomen Abdomen: soft, non tender, no guarding, no rigid, no rebound - Integumentary Brawny edema, chronic venous stasis disease of the lower extremities. no rash, no abnormal pigmentation - Neurologic no disoriented, no combative - Psychiatric oriented to time, oriented to person, oriented to place, speech is normal, memory intact Results - Labs 04/29/23 19:04 04/29/23 06:44 Abnormal Lab Results - Last 24 Hours (Table) 04/29/23 04/29/23 04/29/23 Range/Units 06:44 06:44 13:54 Hgb (13.0-17.5) gm/dL RDW 16.7 H (11.5-15.5) % Plt Count 138 L (150-450) k/uL Sodium 132 L (137-145) mmol/L Potassium 3.4 L (3.5-5.1) mmol/L Chloride 90 L (98-107) mmol/L Carbon Dioxide 33 H (22-30) mmol/L BUN 22 H (9-20) mg/dL Glucose 118 H (74-99) mg/dL Calcium 7.7 L (8.4-10.2) mg/dL Total Bilirubin 1.8 H (0.2-1.3) mg/dL Urine RBC 141 H (0-5) /hpf Urine WBC 11 H (0-5) /hpf Urine Bacteria Rare H (None) /hpf 04/29/23 Range/Units 19:04 Hgb 12.9 L (13.0-17.5) gm/dL RDW 17.1 H (11.5-15.5) % Plt Count 144 L (150-450) k/uL Sodium (137-145) mmol/L Potassium (3.5-5.1) mmol/L Chloride (98-107) mmol/L Carbon Dioxide (22-30) mmol/L BUN (9-20) mg/dL Glucose (74-99) mg/dL Calcium (8.4-10.2) mg/dL Total Bilirubin (0.2-1.3) mg/dL Urine RBC (0-5) /hpf Urine WBC (0-5) /hpf Urine Bacteria (None) /hpf Diabetes panel 04/29/23 Range/Units 06:44 Sodium 132 L (137-145) mmol/L Potassium 3.4 L (3.5-5.1) mmol/L Chloride 90 L (98-107) mmol/L Carbon Dioxide 33 H (22-30) mmol/L BUN 22 H (9-20) mg/dL Creatinine 1.04 (0.66-1.25) mg/dL Glucose 118 H (74-99) mg/dL Calcium 7.7 L (8.4-10.2) mg/dL AST 30 (17-59) U/L ALT 10 (4-49) U/L Alkaline Phosphatase 85 (38-126) U/L Total Protein 6.6 (6.3-8.2) g/dL Albumin 3.6 (3.5-5.0) g/dL Calcium panel 04/29/23 Range/Units 06:44 Calcium 7.7 L (8.4-10.2) mg/dL Albumin 3.6 (3.5-5.0) g/dL Pituitary panel 04/29/23 Range/Units 06:44 Sodium 132 L (137-145) mmol/L Potassium 3.4 L (3.5-5.1) mmol/L Chloride 90 L (98-107) mmol/L Carbon Dioxide 33 H (22-30) mmol/L BUN 22 H (9-20) mg/dL Creatinine 1.04 (0.66-1.25) mg/dL Glucose 118 H (74-99) mg/dL Calcium 7.7 L (8.4-10.2) mg/dL Adrenal panel 04/29/23 Range/Units 06:44 Sodium 132 L (137-145) mmol/L Potassium 3.4 L (3.5-5.1) mmol/L Chloride 90 L (98-107) mmol/L Carbon Dioxide 33 H (22-30) mmol/L BUN 22 H (9-20) mg/dL Creatinine 1.04 (0.66-1.25) mg/dL Glucose 118 H (74-99) mg/dL Calcium 7.7 L (8.4-10.2) mg/dL Total Bilirubin 1.8 H (0.2-1.3) mg/dL AST 30 (17-59) U/L ALT 10 (4-49) U/L Alkaline Phosphatase 85 (38-126) U/L Total Protein 6.6 (6.3-8.2) g/dL Albumin 3.6 (3.5-5.0) g/dL Assessment and Plan Assessment: Impression: Gross hematuria indeterminate etiology. I'll call is him. Medical illnesses. Recommendations: We'll need a CT urogram and cystoscopy. This can be achieved as an outpatient.
[2023-04-30 09:35] LABS: Anisocytosis Slight; HCT 41.1 % (39.0-53.0); HGB 13.5 gm/dL (13.0-17.5); MCH 29.4 pg (25.0-35.0); MCHC 32.9 g/dL (31.0-37.0); MCV 89.5 fL (80.0-100.0); Platelet Count 133 k/uL (150-450); RBC 4.59 m/uL (4.30-5.90); RDW 16.9 % (11.5-15.5); WBC 5.4 k/uL (3.8-10.6)
[2023-04-30 10:24] LABS: African American GFR (CKD) >90 (>60 ml/min/1.73 sqM); Anion Gap 9 mmol/L; Blood Urea Nitrogen 18 mg/dL (9-20); Calcium 7.5 mg/dL (8.4-10.2); Carbon Dioxide 32 mmol/L (22-30); Chloride 93 mmol/L (98-107); Glucose 123 mg/dL (74-99); Non-African American GFR(CKD) >90 (>60 ml/min/1.73 sqM); Potassium 3.3 mmol/L (3.5-5.1); Sodium 134 mmol/L (137-145)
[2023-04-30] MEDS ORDERED: POTASSIUM CHLORIDE ER 20 MEQ TAB.ER PO STA (11:18)
[2023-04-30 12:48] VITALS: BP 120/70; PULSE 74; TEMP 97.9
--- NOTE | 2023-04-30 13:34 | P.DS ---
Providers Date of admission: 04/28/23 12:16 Expected date of discharge: 04/30/23 Attending physician: Brain Caballero MD Consults: 04/26/23 05:50 Consult Physician Urgent Consulting Provider: Yuri Sorensen Consult Reason/Comments: suicidal ideations Do you want consulting provider notified?: Yes 04/29/23 16:05 Consult Physician Routine Consulting Provider: Richar Bruno Consult Reason/Comments: hematuria Do you want consulting provider notified?: Yes Primary care physician: Casey Varner Hospital Course: Discharge Diagnosis: Severe weakness secondary to electrolyte imbalance and deconditioning Severe hypomagnesemia Hematuria Acute alcohol intoxication with impending alcohol withdrawal Hypokalemia Depression Acute exacerbation of systolic congestive heart failure last on ejection fraction 45% Chronic A. fib- CHADSVASc is 1 and he is high risk for falling and non complience, additionally he has hematuria no DOAC at this time. Dyslipidemia COPD without exacerbation Hospital Course: Patient is a 62-year-old male with chronic atrial fibrillation on anticoagulation with Eliquis, hypertension, peripheral vascular disease with chronic bilateral lower extremity edema, COPD, and depression who came to the emergency department due to debility and his frustration with life. In the emergency department he underwent an extensive evaluation. Laboratory analysis was essentially unremarkable other than alcohol level 352. Patient was admitted and psychiatry was consulted. He was started on CIWA protocol and then librium. He was cleared by psychiatry for discharge. Initially had wanted to go to subacute rehab as we was profoundly weak. However, after replacement of magnesium he was able to ambulate to the bathroom unassisted. He continued to do well. He diuresed well with the resumption of his home Lasix and Aldactone. Echocardiogram was ordered however patient refused echo. He was feeling good enough for discharge. His CHADS VASC was 1 and it was determined with his low CHADSVasc and his binge drinking pattern that at this time risks>benefits for anticoagulation. This should be readdressed if he is able to maintain sobriety. It was subsequently determined stable for discharge home and was noted to have some hematuria. He was monitored for an additional 24 hours or his hemoglobin remained stable. He was seen by urology who recommended outpatient evaluation. He did refuse both correction facility and home health care. He states he will continue to follow with Dr. Varner. Patient is at high risk for readmission due to his complicated social situations including difficulty with driving to appointments. Follow-up: He'll follow-up with Dr. Varner in 2-3 days, Dr. Matias from cardiology in 1-2 weeks, and Dr. Betancur in 1-2 weeks. He was given prescription for his Lasix was decreased to 20 mg daily as patient had significant diuresis with 40 mg of Lasix. Aldactone 25 mg oral daily, Metoprolol 12.5 mg PO twice daily, Lisinopril 4 mg daily, and Lipitor 20 mg daily. Naltrexone was suggested for discharge but this will not be started as bilirubin is 1.8, and I have concerns for hepatic dysfunction and this could be considered in the outpatient setting if he is able to successfully follow up with Dr. Varner. Again due to these concerns of adequate follow-up he will only be prescribed 2 weeks of his medications. Additional medications prescribed by psychiatry are Zoloft 50 mg at night and trazodone 50 mg at night Patient seen and examined at bedside. He states his concern is that he cannot get up the 2 steps into his house. We again discussed that he should go to rehab if he is desiring increased physical capacity, but that he does not required con tinued monitoring in the acute setting, this is distressing to him and he doesn't understand why he cannot just wait a few days in the hospital. He again met with the SNF team and refused admission. Vital signs reviewed and stable. General: nontoxic, no distress, appears older than stated age, malodorous Cardiovascular: S1S2 reg, no murmur, positive posterior tibial pulse bilateral, Lungs: Decreased breath sounds bilateral, no rhonchi, no rales , no accessory muscle use Abdominal: soft, nontender to palpation, no guarding, no appreciable organomegaly Ext: no gross muscle atrophy, bilateral lower extremity nonpitting edema, skin darkening consistent with peripheral arterial disease, no contractures Neuro: CN II-XI grossly intact, no focal neuro deficits Psych: Alert, oriented, appropriate affect A total of 37 minutes of time were spent preparing this complex discharge summary. Patient was discharged on 04/30/23. This dictation was prepared using [employer] voice recognition software. Though every attempt is made to correct errors during dictation some may still exist. Patient Condition at Discharge: Stable Plan - Discharge Summary Discharge Rx Participant: No New Discharge Prescriptions: New traZODone HCL [Desyrel] 50 mg PO HS #30 tab Furosemide [Lasix] 20 mg PO DAILY #14 tab Metoprolol Tartrate [Lopressor] 12.5 mg PO BID 14 Days #28 tablet Folic Acid 1 mg PO DAILY #14 tablet Magnesium Oxide [Mag-Ox] 400 mg PO DAILY #14 tablet Thiamine [Vitamin B-1] 100 mg PO DAILY #14 tablet Sertraline [Zoloft] 50 mg PO HS #30 tab lisinopriL [Zestril] 5 mg PO HS #14 tab Continue Spironolactone [Aldactone] 25 mg PO DAILY #14 tab Atorvastatin [Lipitor] 20 mg PO DAILY #30 tab Discontinued lisinopriL [Zestril] 5 mg PO HS Furosemide [Lasix] 40 mg PO DAILY Discharge Medication List Atorvastatin [Lipitor] 20 mg PO DAILY #30 tab 04/29/23 [Rx] Folic Acid 1 mg PO DAILY #14 tablet 04/29/23 [Rx] Furosemide [Lasix] 20 mg PO DAILY #14 tab 04/29/23 [Rx] Magnesium Oxide [Mag-Ox] 400 mg PO DAILY #14 tablet 04/29/23 [Rx] Metoprolol Tartrate [Lopressor] 12.5 mg PO BID 14 Days #28 tablet 04/29/23 [Rx] Sertraline [Zoloft] 50 mg PO HS #30 tab 04/29/23 [Rx] Spironolactone [Aldactone] 25 mg PO DAILY #14 tab 04/29/23 [Rx] Thiamine [Vitamin B-1] 100 mg PO DAILY #14 tablet 04/29/23 [Rx] traZODone HCL [Desyrel] 50 mg PO HS #30 tab 04/29/23 [Rx] lisinopriL [Zestril] 5 mg PO HS #14 tab 04/30/23 [Rx] Follow up Appointment(s)/Referral(s): Alexandre Matias MD [STAFF PHYSICIAN] - 1 Week Casey Varner MD [Primary Care Provider] - 1-2 days (please call the office to schedule a follow up appointment.) Manuel Betancur MD [STAFF PHYSICIAN] - 1 Week Activity/Diet/Wound Care/Special Instructions: Activity: As tolerated Diet: Heart healthy Special Instructions: Please follow up with Dr. Varner 2-3 days or someone at his office. Ideally should have repeat kidney function done in the next week Follow-up with Dr. Betancur regarding your hematuria- he is recommending CT urogram and cystoscopy Abstain from alcohol Discharge/Stand Alone Forms: AA Meetings [place], Who Do I Call?, Community Resources, Outpatient Counseling Discharge Disposition: HOME SELF-CARE
== END 2023-04-30 15:00 | disposition home or self-care (01) | DRG 896 ==
LOC: EC 03:47 → 5NMEDONC 05:50 → OBSVTOIN 04-28 12:16
PROVIDERS: ADMIT Internal Medicine; ATTEND Internal Medicine
DX: F10.229 Alcohol dependence with intoxication, unspecified (principal); I50.23 Acute on chronic systolic (congestive) heart failure; I48.20 Chronic atrial fibrillation, unspecified; R45.851 Suicidal ideations; F10.239 Alcohol dependence with withdrawal, unspecified; Y90.8 Blood alcohol level of 240 mg/100 ml or more; F41.9 Anxiety disorder, unspecified; F32.A Depression, unspecified; L30.4 Erythema intertrigo; I11.0 Hypertensive heart disease with heart failure; T50.2X5A Adverse effect of carbonic-anhydrase inhibitors, benzothiadiazides and other diuretics, initial encounter; I73.9 Peripheral vascular disease, unspecified; J44.9 Chronic obstructive pulmonary disease, unspecified; F17.200 Nicotine dependence, unspecified, uncomplicated; R53.81 Other malaise; R31.0 Gross hematuria; E78.5 Hyperlipidemia, unspecified; E83.42 Hypomagnesemia; E87.6 Hypokalemia; Z71.3 Dietary counseling and surveillance; Z79.899 Other long term (current) drug therapy; Z79.01 Long term (current) use of anticoagulants; Z86.14 Personal history of Methicillin resistant Staphylococcus aureus infection
CPT/HCPCS: 36415; 80048; 80053; 80320; 81001; 82075; 83735; 83880; 84100; 85025; 85027; 87086; 93005; 99285

== ENCOUNTER 2023-05-08 09:43 | Inpatient (IN) | payer MEDICARE, OTHER ==
[2023-05-08] MEDS ORDERED: SODIUM CHLORIDE 0.9% 500 ML 500 ML IV STA (10:22)
[2023-05-08 10:42] LABS: Anisocytosis Slight; Basophils % (A) 0 %; Eosinophils # (A) 0.1 k/uL (0-0.7); Eosinophils % (A) 1 %; HCT 46.2 % (39.0-53.0); HGB 14.9 gm/dL (13.0-17.5); Lymphocytes # (A) 0.9 k/uL (1.0-4.8); Lymphocytes % (A) 12 %; MCH 28.9 pg (25.0-35.0); MCHC 32.3 g/dL (31.0-37.0); MCV 89.3 fL (80.0-100.0); Mean Platelet Volume 8.3; Monocytes # (A) 0.5 k/uL (0-1.0); Monocytes % (A) 6 %; Neutrophils # (A) 6.1 k/uL (1.3-7.7); Neutrophils % (A) 79 %; RBC 5.17 m/uL (4.30-5.90); RDW 17.2 % (11.5-15.5); WBC 7.7 k/uL (3.8-10.6)
[2023-05-08 10:43] LABS: Platelet Count 317 k/uL (150-450)
[2023-05-08 10:50] LABS: ALT 46 U/L (4-49); AST 122 U/L (17-59); African American GFR (CKD) 81 (>60 ml/min/1.73 sqM); Albumin 4.4 g/dL (3.5-5.0); Alkaline Phosphatase 113 U/L (38-126); Anion Gap 19 mmol/L; Blood Urea Nitrogen 19 mg/dL (9-20); Calcium 9.3 mg/dL (8.4-10.2); Carbon Dioxide 25 mmol/L (22-30); Chloride 99 mmol/L (98-107); Glucose 87 mg/dL (74-99); Magnesium 1.6 mg/dL (1.6-2.3); Non-African American GFR(CKD) 70 (>60 ml/min/1.73 sqM); Potassium 3.9 mmol/L (3.5-5.1); Sodium 143 mmol/L (137-145); Total Bilirubin 1.7 mg/dL (0.2-1.3); Total Protein 7.6 g/dL (6.3-8.2)
[2023-05-08 10:51] LABS: INR 0.9 (<1.2); Partial Thromboplastin Time 23.5 sec (22.0-30.0); Prothrombin Time 10.4 sec (10.0-12.5)
--- NOTE | 2023-05-08 10:51 | XR ---
EXAMINATION TYPE: XR chest 2V DATE OF EXAM: 05/08/2023 COMPARISON: 06/09/2019 TECHNIQUE: PA and lateral views submitted. HISTORY: Weakness FINDINGS: The lungs are clear and there is no pneumothorax, pleural effusion, or focal pneumonia. Heart size normal and no overt failure. Osseous structures demonstrate hypertrophic and degenerative changes of the spine. Bilateral shoulder arthropathy. Underlying COPD. Atherosclerotic change aorta. Elevated le ft hemidiaphragm. IMPRESSION: 1. No acute process.
[2023-05-08 10:54] LABS: Alcohol 273 mg/dL
[2023-05-08] MEDS ORDERED: NALOXONE 0.4 MG/ML 1 ML VIAL IV PRN (12:09)
[2023-05-08] MEDS ORDERED: LORazepam 2 MG/ML INJ IV PRN ×3 (12:11)
[2023-05-08] MEDS ORDERED: THIAMINE 100 MG/ML 2 ML VIAL IM STA (12:11)
--- NOTE | 2023-05-08 13:30 | ED ---
General Adult HPI - General Chief complaint: Weakness Stated complaint: weakness Time Seen by Provider: 05/08/23 09:51 Source: patient, EMS, RN notes reviewed, old records reviewed Mode of arrival: EMS Limitations: no limitations - History of Present Illness Initial comments: Patient is a 62-year-old male who presents to the emergency department for mónica luation for weakness. Patient is also drunk with alcohol. Recently was discharged from this facility. At baseline, ambulates with a walker and lives at home alone. Has a history of atrial fibrillation, COPD, hypertension. His chronic lower extremity edema. Has contacted EMS multiple times this week for lift assist. They're concerned that he cannot take care of himself at home. Presents for further evaluation at this time. Patient does endorse drinking alcohol. When I ask him, he states he has no complaints. States he called EMS because they do not help him get situated as he would like. However he is calling the multiple days of the last few days. Presents for further evaluation at this time. - Related Data Home Medications Medication Instructions Recorded Confirmed Metoprolol Tartrate [Lopressor] 12.5 mg PO BID 05/08/23 05/08/23 Sertraline [Zoloft] 50 mg PO DIRECTED 05/08/23 05/08/23 traZODone HCL [Desyrel] 50 mg PO DIRECTED 05/08/23 05/08/23 Previous Rx's Medication Instructions Recorded Atorvastatin [Lipitor] 20 mg PO DAILY #30 tab 04/29/23 Folic Acid 1 mg PO DAILY #14 tablet 04/29/23 Furosemide [Lasix] 20 mg PO DAILY #14 tab 04/29/23 Magnesium Oxide [Mag-Ox] 400 mg PO DAILY #14 tablet 04/29/23 Spironolactone [Aldactone] 25 mg PO DAILY #14 tab 04/29/23 Thiamine [Vitamin B-1] 100 mg PO DAILY #14 tablet 04/29/23 lisinopriL [Zestril] 5 mg PO HS #14 tab 04/30/23 Allergies Allergy/AdvReac Type Severity Reaction Status Date / Time No Known Allergies Allergy Verified 05/08/23 12:59 Review of Systems ROS Statement: Those systems with pertinent positive or pertinent negative responses have been documented in the HPI. Review of Systems: CONST: Denies fever EYES: Denies blurry vision ENT: Denies nasal congestion C/V: Denies Chest pain RESP: Denies shortness of breath GI: Denies abdominal pain : Denies dysuria SKIN: Denies rash. MSK: Denies joint pain. NEURO: Denies headache ROS Other: All systems not noted in ROS Statement are negative. Past Medical History Past Medical History: Atrial Fibrillation, Atrial Flutter, COPD, GI Bleed, Hypertension, Vascular Disorder Additional Past Medical History / Comment(s): hx Bilateral lower leg edema- "retains water", History of Any Multi-Drug Resistant Organisms: MRSA Date of last positivie culture/infection: 8 YEARS AGO-treated in [facility] MDRO Source:: LEFT ABD Past Surgical History: Bowel Resection, EPS, Heart Catheterization Additional Past Surgical History / Comment(s): Bowel resection d/t a fistula, colonoscopy, EPS and cardioversion, Past Anesthesia/Blood Transfusion Reactions: No Reported Reaction Past Psychological History: Anxiety, Depression Smoking Status: Current every day smoker Past Alcohol Use History: Heavy Past Drug Use History: None Reported - Past Family History Mother Family Medical History: Cancer Additional Family Medical History / Comment(s): breast cancer. Father Family Medical History: Cancer Additional Family Medical History / Comment(s): . General Exam - General Exam Comments Initial Comments: General: Appears in no acute distress. Appears intoxicated with alcohol. HEAD: Normal with no signs of head trauma. EYES: PERRLA, EOMI, conjunctiva normal, no discharge. ENT: Hearing grossly intact, normal oropharynx. RESPIRATORY: Clear breath sounds bilaterally. No wheezes, rales, or rhonchi. C/V: Regular rate and rhythm. S1 and S2 auscultated, chronic lower extremity symmetrical pitting edema, peripheral pulses 2+ and intact throughout ABD: Abd is soft, nontender, nondistended EXT: Normal range of motion, no obvious deformity SKIN: No rashes or lesions observed on exposed skin. NEURO: Alert and oriented x 4. Cranial nerves II-XII intact. No obvious acute focal sensory or strength deficits. GCS of 15. Limitations: no limitations Course Vital Signs 05/08/23 05/08/23 05/08/23 09:47 11:56 12:49 Temperature 98.2 F Pulse Rate 94 100 91 Respiratory 20 22 20 Rate Blood Pressure 127/81 115/69 124/91 O2 Sat by Pulse 97 93 L 95 Oximetry Procedures - [place] Protocol (Time Out) Nurse: Indy Moscoso Medical Decision Making - Medical Decision Making Was pt. sent in by a medical professional or institution (JENNIFER Lau, [employer], urgent care, hospital, or fpc...) When possible be specific @ -No Did you speak to anyone other than the patient for history (EMS, parent, family, police, friend...)? What history was obtained from this source @ -No Did you review nursing and triage notes (agree or disagree)? Why? @ -I reviewed and agree with nursing and triage notes Were old charts reviewed (outside hosp., previous admission, EMS record, old EKG , old radiological studies, urgent care reports/EKG's, fpc records)? Report findings @ -Old charts reviewed Differential Diagnosis (chest pain, altered mental status, abdominal pain women, abdominal pain men, vaginal bleeding, weakness, fever, dyspnea, syncope, headache, dizziness, GI bleed, back pain, seizure, CVA, palpatations, mental health, musculoskeletal)? @ -Differential Weakness: Hypoglycemia, shock, sepsis, hyponatremia, anemia, infection, DC, ETOH, adverse medicine reaction, overdose, stroke, this is not meant to be an all-inclusive list. EKG interpreted by me (3pts min.). @ -As above X-rays interpreted by me (1pt min.). @ -Chest x-ray reveals no obvious acute cardio pulmonary process. CT interpreted by me (1pt min.). @ -None done U/S interpreted by me (1pt. min.). @ -None done What testing was considered but not performed or refused? (CT, X-rays, U/S, labs)? Why? @ -None What meds were considered but not given or refused? Why? @ -None Did you discuss the management of the patient with other professionals (professionals i.e. JENNIFER Lau, [employer], lab, RT, psych nurse, group social worker, sampler tester, teacher, jailer/training officer, behavioral health case manager)? Give summary @ -Discussed with the admitting team, Dr. Grant who accepted the patient. Was smoking cessation discussed for >3mins.? @ -No Was critical care preformed (if so, how long)? @ -No Were there social determinants of health that impacted care today? How? (Homelessness, low income, unemployed, alcoholism, drug addiction, transportation, low edu. Level, literacy, decrease access to med. care, long term, rehab)? @ -No Was there de-escalation of care discussed even if they declined (Discuss DNR or withdrawal of care, Hospice)? DNR status @ -No What co-morbidities impacted this encounter? (DM, HTN, Smoking, COPD, CAD, Cancer, CVA, ARF, Chemo, Hep., AIDS, mental health diagnosis, sleep apnea, morbid obesity)? @ -None Was patient admitted / discharged? Hospital course, mention meds given and route, prescriptions, significant lab abnormalities, going to OR and other pertinent info. @ -Based on the patient's presentation and physical exam, presents with alcohol intoxication as well as weakness. He was brought in by EMS because they've been called numerous times for left assess at home and they feel he is unsafe for being at home. Does endorse chronic weakness. Lives at home alone. States he is compliant with medications. Appears acutely intoxicated with alcohol. We'll obtain generalized workup. Patient was in agreement with this plan. He is alert and oriented 4 without any obvious neuro deficits. Vital signs within acceptable limits. Patient's laboratory studies are remarkable for lactic acidosis of 4.8 which is likely secondary to alcohol intoxication. Remainder the labs within acceptable limits. Slightly volume overload based on BNP. Chest x-ray unremarkable. EKG within acceptable limits. Patient is in atrial fibrillation however is rate controlled at this time. On reevaluation, after the patient. He will be admitted. Patient was in agreem ent this plan. Spoke with the admitting physician Dr. Grant who accepted the admission. Undiagnosed new problem with uncertain prognosis? @ -No Drug Therapy requiring intensive monitoring for toxicity (Heparin, Nitro, Insulin, Cardizem)? @ -No Were any procedures done? @ -No Diagnosis/symptom? @ -Alcohol intoxication, weakness Acute, or Chronic, or Acute on Chronic? @ -Acute Uncomplicated (without systemic symptoms) or Complicated (systemic symptoms)? @ -Complicated Side effects of treatment? @ -No Exacerbation, Progression, or Severe Exacerbation? @ -No Poses a threat to life or bodily function? How? (Chest pain, USA, DC, pneumonia, PE, COPD, DKA, ARF, appy, cholecystitis, CVA, Diverticulitis, Homicidal, Suicidal, threat to staff... and all critical care pts) @ -Possibly, yes - Lab Data Result diagrams: 05/08/23 10:25 05/08/23 10:25 Lab Results 05/08/23 05/08/23 05/08/23 Range/Units 10:25 10:25 10:25 WBC 7.7 (3.8-10.6) k/uL RBC 5.17 (4.30-5.90) m/uL Hgb 14.9 (13.0-17.5) gm/dL Hct 46.2 (39.0-53.0) % MCV 89.3 (80.0-100.0) fL MCH 28.9 (25.0-35.0) pg MCHC 32.3 (31.0-37.0) g/dL RDW 17.2 H (11.5-15.5) % Plt Count 317 D (150-450) k/uL MPV 8.3 Neutrophils % 79 % Lymphocytes % 12 % Monocytes % 6 % Eosinophils % 1 % Basophils % 0 % Neutrophils # 6.1 (1.3-7.7) k/uL Lymphocytes # 0.9 L (1.0-4.8) k/uL Monocytes # 0.5 (0-1.0) k/uL Eosinophils # 0.1 (0-0.7) k/uL Basophils # 0.0 (0-0.2) k/uL Anisocytosis Slight PT 10.4 (10.0-12.5) sec INR 0.9 (<1.2) APTT 23.5 (22.0-30.0) sec Sodium 143 (137-145) mmol/L Potassium 3.9 (3.5-5.1) mmol/L Chloride 99 (98-107) mmol/L Carbon Dioxide 25 (22-30) mmol/L Anion Gap 19 mmol/L BUN 19 (9-20) mg/dL Creatinine 1.13 (0.66-1.25) mg/dL Est GFR (CKD-EPI)AfAm 81 (>60 ml/min/1.73 sqM) Est GFR (CKD-EPI)NonAf 70 (>60 ml/min/1.73 sqM) Glucose 87 (74-99) mg/dL Lactic Ac Sepsis Rflx Plasma Lactic Acid Luis (0.7-2.0) mmol/L Calcium 9.3 (8.4-10.2) mg/dL Magnesium 1.6 (1.6-2.3) mg/dL Total Bilirubin 1.7 H (0.2-1.3) mg/dL AST 122 H (17-59) U/L ALT 46 (4-49) U/L Alkaline Phosphatase 113 (38-126) U/L NT-Pro-B Natriuret Pep pg/mL Total Protein 7.6 (6.3-8.2) g/dL Albumin 4.4 (3.5-5.0) g/dL Serum Alcohol 273 H* mg/dL Influenza Type A (PCR) (Not Detectd) Influenza Type B (PCR) (Not Detectd) RSV (PCR) (Not Detectd) SARS-CoV-2 (PCR) (Not Detectd) 05/08/23 05/08/23 05/08/23 Range/Units 10:25 10:25 10:25 WBC (3.8-10.6) k/uL RBC (4.30-5.90) m/uL Hgb (13.0-17.5) gm/dL Hct (39.0-53.0) % MCV (80.0-100.0) fL MCH (25.0-35.0) pg MCHC (31.0-37.0) g/dL RDW (11.5-15.5) % Plt Count (150-450) k/uL MPV Neutrophils % % Lymphocytes % % Monocytes % % Eosinophils % % Basophils % % Neutrophils # (1.3-7.7) k/uL Lymphocytes # (1.0-4.8) k/uL Monocytes # (0-1.0) k/uL Eosinophils # (0-0.7) k/uL Basophils # (0-0.2) k/uL Anisocytosis PT (10.0-12.5) sec INR (<1.2) APTT (22.0-30.0) sec Sodium (137-145) mmol/L Potassium (3.5-5.1) mmol/L Chloride (98-107) mmol/L Carbon Dioxide (22-30) mmol/L Anion Gap mmol/L BUN (9-20) mg/dL Creatinine (0.66-1.25) mg/dL Est GFR (CKD-EPI)AfAm (>60 ml/min/1.73 sqM) Est GFR (CKD-EPI)NonAf (>60 ml/min/1.73 sqM) Glucose (74-99) mg/dL Lactic Ac Sepsis Rflx Plasma Lactic Acid Luis 4.8 H* (0.7-2.0) mmol/L Calcium (8.4-10.2) mg/dL Magnesium (1.6-2.3) mg/dL Total Bilirubin (0.2-1.3) mg/dL AST (17-59) U/L ALT (4-49) U/L Alkaline Phosphatase (38-126) U/L NT-Pro-B Natriuret Pep 1070 pg/mL Total Protein (6.3-8.2) g/dL Albumin (3.5-5.0) g/dL Serum Alcohol mg/dL Influenza Type A (PCR) Not Detected (Not Detectd) Influenza Type B (PCR) Not Detected (Not Detectd) RSV (PCR) Not Detected (Not Detectd) SARS-CoV-2 (PCR) Not Detected (Not Detectd) 05/08/23 Range/Units 10:56 WBC (3.8-10.6) k/uL RBC (4.30-5.90) m/uL Hgb (13.0-17.5) gm/dL Hct (39.0-53.0) % MCV (80.0-100.0) fL MCH (25.0-35.0) pg MCHC (31.0-37.0) g/dL RDW (11.5-15.5) % Plt Count (150-450) k/uL MPV Neutrophils % % Lymphocytes % % Monocytes % % Eosinophils % % Basophils % % Neutrophils # (1.3-7.7) k/uL Lymphocytes # (1.0-4.8) k/uL Monocytes # (0-1.0) k/uL Eosinophils # (0-0.7) k/uL Basophils # (0-0.2) k/uL Anisocytosis PT (10.0-12.5) sec INR (<1.2) APTT (22.0-30.0) sec Sodium (137-145) mmol/L Potassium (3.5-5.1) mmol/L Chloride (98-107) mmol/L Carbon Dioxide (22-30) mmol/L Anion Gap mmol/L BUN (9-20) mg/dL Creatinine (0.66-1.25) mg/dL Est GFR (CKD-EPI)AfAm (>60 ml/min/1.73 sqM) Est GFR (CKD-EPI)NonAf (>60 ml/min/1.73 sqM) Glucose (74-99) mg/dL Lactic Ac Sepsis Rflx Y Plasma Lactic Acid Luis (0.7-2.0) mmol/L Calcium (8.4-10.2) mg/dL Magnesium (1.6-2.3) mg/dL Total Bilirubin (0.2-1.3) mg/dL AST (17-59) U/L ALT (4-49) U/L Alkaline Phosphatase (38-126) U/L NT-Pro-B Natriuret Pep pg/mL Total Protein (6.3-8.2) g/dL Albumin (3.5-5.0) g/dL Serum Alcohol mg/dL Influenza Type A (PCR) (Not Detectd) Influenza Type B (PCR) (Not Detectd) RSV (PCR) (Not Detectd) SARS-CoV-2 (PCR) (Not Detectd) - EKG Data -: EKG Interpreted by Me EKG Comments: 12-lead Electrocardiogram Interpretation Note EKG was reviewed and interpreted by myself. 12-lead ECG performed at 1049 is interpreted by me as revealing atrial fibrillation with RVR at a rate of 112 beats per minute. [place] is normal. QRS duration is 87 ms, QTc is 398 ms. There were no significant acute ST or T wave abnormalities to suggest myocardial ischemia or injury. R wave progression across the precordium was satisfactory. By my interpretation this EKG is non-diagnostic for acute ischemia. Disposition Clinical Impression: Weakness, Alcohol intoxication Disposition: ADMITTED IP TO THIS HOSP Condition: Stable Referrals: Casey Varner MD [Primary Care Provider] - 1-2 days Time of Disposition: 11:55
[2023-05-08] MEDS: SERTRALINE 50 MG TAB PO SCH (14:50)
--- NOTE | 2023-05-08 17:53 | P.HPIM ---
History of Present Illness H&P Date: 05/08/23 Chief Complaint: LE weakness, ETOH intoxication 62 year old man with history of HTN, HLD, depression, ETOH dependence, permanent atrial fibrillation on eliquis, PVD, COPD presented for ETOH intoxication and LE weakness. Pt is a relatively poor historian. He tells me that he has had trouble with multiple falls in his home and LE weakness for approximately 5 years. In the last week, he's called EMS several times over his falls at home and says that each time, they help him back to his chair. He reports that this time when they visited they told him he had to come to the hospital for further evaluation. Pt lives alone at home and was recently discharged for similar issues on 04/28, refusing rehab at that time. Pt reports ongoing ETOH abuse, saying that he can't stop drinking because "he has to watch sports on TV." In the emergency room, patient was afebrile, 127/81, heart rate 94, 97% on room air. CBC is unremarkable. Basic metabolic panel is unremarkable. Liver function test show AST of 122, ALT 46, total bilirubin of 1.7, BNP of 1070. Coags are unremarkable. Chest x-ray shows borderline cardiomegaly with no evidence of vascular congestion at this time. EKG shows atrial fibrillation with ST depressions in leads 2, T wave inversion in V4 through V6, similar in appearance to his priors. Case is discussed emergency room physician decision was made to admit the patient the hospital for further evaluation. Gen: in no apparent distress, resting comfortably in bed Eyes: PERRL, no scleral injection or icterus HENT: normocephalic, atraumatic, good hearing acuity, moist mucous membranes Neck: no tracheal deviation, full range of motion Resp: good air exchange, breathing comfortably with no accessory muscle use, no tactile fremitus CVS: good distal perfusion x 4, no pitting edema GI: soft, NTTP, ND, no hepatosplenomegaly : no suprapubic tenderness, no CVAT, abbott catheter not present MSK: no clubbing, no cyanosis, no noted contractures of extremities, lower extremity pitting edema with chronic venous stasis changes and lymphedema Skin: no noted rashes, petechiae; temperature of skin is appropriate Neuro: moving all extremities without signs of weakness, CN II-XII intact Psych: cooperative, euthymic mood, insight and judgment intact Assessment/plan: Alcohol dependence Alcohol withdrawal -CIWA protocol -Cessation counseling with patient today was completed -Ativan when necessary -Thiamine, folic acid Lower extremity weakness Bilateral pitting edema Chronic diastolic heart failure -Lasix 20 mg daily to be continued without adjustment -PT/OT consult -Case management consult -Unfortunately, due to multiple social stressors, patient has been largely noncompliant with care Permanent atrial fibrillation COPD without exacerbation Peripheral vascular disease Hypertension Hyperlipidemia Depression -Home medications reviewed and reconciled Patient is full code Past Medical History Past Medical History: Atrial Fibrillation, Atrial Flutter, COPD, GI Bleed, Hypertension, Vascular Disorder Additional Past Medical History / Comment(s): hx Bilateral lower leg edema- "retains water", History of Any Multi-Drug Resistant Organisms: MRSA Date of last positivie culture/infection: 8 YEARS AGO-treated in [facility] MDRO Source:: LEFT ABD Past Surgical History: Bowel Resection, EPS, Heart Catheterization Additional Past Surgical History / Comment(s): Bowel resection d/t a fistula, colonoscopy, EPS and cardioversion, Past Anesthesia/Blood Transfusion Reactions: No Reported Reaction Past Psychological History: Anxiety, Depression Smoking Status: Current every day smoker Past Alcohol Use History: Heavy Past Drug Use History: None Reported - Past Family History Mother Family Medical History: Cancer Additional Family Medical History / Comment(s): breast cancer. Father Family Medical History: Cancer Additional Family Medical History / Comment(s): . Medications and Allergies Home Medications Medication Instructions Recorded Confirmed Type Atorvastatin [Lipitor] 20 mg PO DAILY #30 tab 04/29/23 05/08/23 Rx Folic Acid 1 mg PO DAILY #14 tablet 04/29/23 05/08/23 Rx Furosemide [Lasix] 20 mg PO DAILY #14 tab 04/29/23 05/08/23 Rx Magnesium Oxide [Mag-Ox] 400 mg PO DAILY #14 tablet 04/29/23 05/08/23 Rx Spironolactone [Aldactone] 25 mg PO DAILY #14 tab 04/29/23 05/08/23 Rx Thiamine [Vitamin B-1] 100 mg PO DAILY #14 tablet 04/29/23 05/08/23 Rx lisinopriL [Zestril] 5 mg PO HS #14 tab 04/30/23 05/08/23 Rx Metoprolol Tartrate [Lopressor] 12.5 mg PO BID 05/08/23 05/08/23 History Sertraline [Zoloft] 50 mg PO DIRECTED 05/08/23 05/08/23 History traZODone HCL [Desyrel] 50 mg PO DIRECTED 05/08/23 05/08/23 History Allergies Allergy/AdvReac Type Severity Reaction Status Date / Time No Known Allergies Allergy Verified 05/08/23 12:59 Physical Exam Osteopathic Statement: *. No significant issues noted on an osteopathic structural exam other than those noted in the History and Physical/Consult. Vitals: Vital Signs Temp Pulse Resp BP Pulse Ox 05/08/23 14:52 107 H 20 125/71 95 05/08/23 12:49 91 20 124/91 95 05/08/23 11:56 100 22 115/69 93 L 05/08/23 09:47 98.2 F 94 20 127/81 97 Intake and Output 05/08/23 05/08/23 05/08/23 06:59 14:59 22:59 Other: Weight 127.006 kg Results CBC & Chem 7: 05/08/23 10:25 05/08/23 10:25 Labs: Abnormal Lab Results - Last 24 Hours (Table) 05/08/23 05/08/23 05/08/23 Range/Units 10:25 10:25 10:25 RDW 17.2 H (11.5-15.5) % Lymphocytes # 0.9 L (1.0-4.8) k/uL Plasma Lactic Acid Luis 4.8 H* (0.7-2.0) mmol/L Total Bilirubin 1.7 H (0.2-1.3) mg/dL AST 122 H (17-59) U/L Serum Alcohol 273 H* mg/dL
[2023-05-08] MEDS ORDERED: traZODone HCL 50 MG TAB PO SCH (21:00)
[2023-05-08] MEDS ORDERED: lisinopriL 5 MG TAB PO SCH (21:00)
[2023-05-08] MEDS: METOPROLOL TARTRATE 12.5 MG TAB PO SCH (21:03)
[2023-05-09] MEDS ORDERED: ATORVASTATIN 20 MG TAB PO SCH (09:00)
[2023-05-09] MEDS ORDERED: FUROSEMIDE 20 MG TAB PO SCH (09:00)
[2023-05-09] MEDS ORDERED: SPIRONOLACTONE 25 MG TAB PO SCH (09:00)
[2023-05-09] MEDS ORDERED: FOLIC ACID 1 MG TAB PO SCH (09:00)
[2023-05-09] MEDS ORDERED: MAGNESIUM OXIDE 400 MG TAB PO SCH (09:00)
[2023-05-09] MEDS ORDERED: THIAMINE 100 MG TAB PO SCH ×2 (09:00)
[2023-05-09] MEDS: METOPROLOL TARTRATE 12.5 MG TAB PO SCH (09:30)
[2023-05-09] MEDS: SERTRALINE 50 MG TAB PO SCH (09:30)
--- NOTE | 2023-05-09 12:32 | P.DS ---
Providers Date of admission: 05/08/23 12:10 Expected date of discharge: 05/09/23 Attending physician: Nicolás Grant MD Primary care physician: Casey Castelan [facility] Course: Alcohol dependence Alcohol withdrawal Lower extremity weakness Bilateral pitting edema Chronic diastolic heart failure Permanent atrial fibrillation COPD without exacerbation Peripheral vascular disease Hypertension Hyperlipidemia Depression Hospital Course: 62 year old man with history of HTN, HLD, depression, ETOH dependence, permanent atrial fibrillation on eliquis, PVD, COPD presented for ETOH intoxication and LE weakness. In the emergency room, patient was afebrile, 127/81, heart rate 94, 97% on room air. CBC is unremarkable. Basic metabolic panel is unremarkable. Liver function test show AST of 122, ALT 46, total bilirubin of 1.7, BNP of 1 070. Coags are unremarkable. Chest x-ray shows borderline cardiomegaly with no evidence of vascular congestion at this time. EKG shows atrial fibrillation with ST depressions in leads 2, T wave inversion in V4 through V6, similar in appearance to his priors. Case is discussed emergency room physician decision was made to admit the patient the hospital for further evaluation. He was noted to have improvement of his lactic acid to 1.7. He was seen by PT and again recommended for rehab, but refused. Pt discharged home with home care services and PCP f/u. HIGH RISK of readmission due to gross non-compliance to medical recommendations and follow up. I spent 34 minutes coordinating this discharge on 05/09 Gen: in no apparent distress, resting comfortably in bed Eyes: PERRL, no scleral injection or icterus HENT: normocephalic, atraumatic, good hearing acuity, moist mucous membranes Neck: no tracheal deviation, full range of motion Resp: good air exchange, breathing comfortably with no accessory muscle use, no tactile fremitus CVS: good distal perfusion x 4, no pitting edema GI: soft, NTTP, ND, no hepatosplenomegaly : no suprapubic tenderness, no CVAT, abbott catheter not present MSK: no clubbing, no cyanosis, no noted contractures of extremities, lower extremity pitting edema with chronic venous stasis changes and lymphedema Skin: no noted rashes, petechiae; temperature of skin is appropriate Neuro: moving all extremities without signs of weakness, CN II-XII intact Psych: cooperative, euthymic mood, insight and judgment intact Patient Condition at Discharge: Fair Plan - Discharge Summary Discharge Rx Participant: No New Discharge Prescriptions: Continue Furosemide [Lasix] 20 mg PO DAILY #14 tab Folic Acid 1 mg PO DAILY #14 tablet Magnesium Oxide [Mag-Ox] 400 mg PO DAILY #14 tablet Thiamine [Vitamin B-1] 100 mg PO DAILY #14 tablet Metoprolol Tartrate [Lopressor] 12.5 mg PO BID traZODone HCL [Desyrel] 50 mg PO DIRECTED Spironolactone [Aldactone] 25 mg PO DAILY #14 tab Atorvastatin [Lipitor] 20 mg PO DAILY #30 tab lisinopriL [Zestril] 5 mg PO HS #14 tab Sertraline [Zoloft] 50 mg PO DIRECTED Discharge Medication List Atorvastatin [Lipitor] 20 mg PO DAILY #30 tab 04/29/23 [Rx] Folic Acid 1 mg PO DAILY #14 tablet 04/29/23 [Rx] Furosemide [Lasix] 20 mg PO DAILY #14 tab 04/29/23 [Rx] Magnesium Oxide [Mag-Ox] 400 mg PO DAILY #14 tablet 04/29/23 [Rx] Spironolactone [Aldactone] 25 mg PO DAILY #14 tab 04/29/23 [Rx] Thiamine [Vitamin B-1] 100 mg PO DAILY #14 tablet 04/29/23 [Rx] lisinopriL [Zestril] 5 mg PO HS #14 tab 04/30/23 [Rx] Metoprolol Tartrate [Lopressor] 12.5 mg PO BID 05/08/23 [History] Sertraline [Zoloft] 50 mg PO DIRECTED 05/08/23 [History] traZODone HCL [Desyrel] 50 mg PO DIRECTED 05/08/23 [History] Follow up Appointment(s)/Referral(s): Casey Varner MD [Primary Care Provider] - 1-2 days Discharge Disposition: HOME WITH HOME HEALTH SERVICES
[2023-05-09 13:23] VITALS: BP 138/79; PULSE 85; RESP 21; TEMP 98.6
== END 2023-05-09 16:03 | disposition home or self-care (01) | DRG 897 ==
LOC: EC 09:43 → 4SSUR 12:10
PROVIDERS: ADMIT Student in an Organized Health Care Education/Training Program; ATTEND Student in an Organized Health Care Education/Training Program
DX: F10.229 Alcohol dependence with intoxication, unspecified (principal); I50.32 Chronic diastolic (congestive) heart failure; I48.21 Permanent atrial fibrillation; F10.239 Alcohol dependence with withdrawal, unspecified; I11.0 Hypertensive heart disease with heart failure; I73.9 Peripheral vascular disease, unspecified; J44.9 Chronic obstructive pulmonary disease, unspecified; Z11.52 Encounter for screening for COVID-19; E78.5 Hyperlipidemia, unspecified; F41.9 Anxiety disorder, unspecified; F32.A Depression, unspecified; I87.8 Other specified disorders of veins; I89.0 Lymphedema, not elsewhere classified; R29.6 Repeated falls; Y90.8 Blood alcohol level of 240 mg/100 ml or more; F17.200 Nicotine dependence, unspecified, uncomplicated; Z91.199 Patient's noncompliance with other medical treatment and regimen due to unspecified reason; Z71.6 Tobacco abuse counseling; Z79.01 Long term (current) use of anticoagulants; Z79.899 Other long term (current) drug therapy; Z60.2 Problems related to living alone; Z86.14 Personal history of Methicillin resistant Staphylococcus aureus infection
CPT/HCPCS: 36415; 51798; 71046; 80053; 80320; 83605; 83735; 83880; 85025; 85610; 85730; 87636; 93005; 96360; 99285

== ENCOUNTER 2023-07-07 12:30 | Inpatient (IN) | payer MEDICARE, OTHER ==
[2023-07-07] MEDS ORDERED: VANCOMYCIN IV PER PHARMACY 1 EACH MISC MISCELLANE PRN (12:53)
[2023-07-07] MEDS ORDERED: cefTRIAXone IN SWFI 1,000 MG/10 ML SYRINGE IVP STA (12:55)
[2023-07-07] MEDS ORDERED: DIPHENOX-ATROP 2.5-0.025 MG 1 EACH TAB PO STA (12:57)
--- NOTE | 2023-07-07 13:15 | ED ---
General Adult HPI - General Stated complaint: Diarrhea Time Seen by Provider: 07/07/23 12:40 Source: patient, RN notes reviewed, old records reviewed - History of Present Illness Initial comments: This is a 63-year-old male who presents emergency department because he is feeling extremely weak and he can't stop having diarrhea. Patient also is unable to get up and get to the bathroom so he is been having diarrhea and laying and he states for 2 months but lately has been much worse. Patient complains of bilateral foot pain. Patient denies any chest pain difficulty breathing shortness of breath. Patient denies any weakness that is focal. Patient denies any vomiting. Patient denies abdominal pain - Related Data Home Medications Medication Instructions Recorded Confirmed Metoprolol Tartrate [Lopressor] 12.5 mg PO BID 05/08/23 07/07/23 Previous Rx's Medication Instructions Recorded Atorvastatin [Lipitor] 20 mg PO DAILY #30 tab 04/29/23 Furosemide [Lasix] 20 mg PO DAILY #14 tab 04/29/23 Spironolactone [Aldactone] 25 mg PO DAILY #14 tab 04/29/23 lisinopriL [Zestril] 5 mg PO HS #14 tab 04/30/23 Allergies Allergy/AdvReac Type Severity Reaction Status Date / Time No Known Allergies Allergy Verified 07/07/23 15:58 Review of Systems ROS Statement: Those systems with pertinent positive or pertinent negative responses have been documented in the HPI. ROS Other: All systems not noted in ROS Statement are negative. Past Medical History Past Medical History: Atrial Fibrillation, Atrial Flutter, COPD, GI Bleed, Hypertension, Vascular Disorder Additional Past Medical History / Comment(s): hx Bilateral lower leg edema- "retains water", History of Any Multi-Drug Resistant Organisms: MRSA Date of last positivie culture/infection: 8 YEARS AGO-treated in [facility] MDRO Source:: LEFT ABD Past Surgical History: Bowel Resection, EPS, Heart Catheterization Additional Past Surgical History / Comment(s): Bowel resection d/t a fistula, colonoscopy, EPS and cardioversion, Past Anesthesia/Blood Transfusion Reactions: No Reported Reaction Past Psychological History: Anxiety, Depression Additional Psychological History / Comment(s): Single but lives with his girlfri end. No children. 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 Is an active tobacco smoker. Relates he drinks alcohol but has no difficulties with alcohol. No current recreational drug use and has no history of injection drug use. Pet dog in the home which is a pitbull, it is a puppy. No experience. No international travel Smoking Status: Current every day smoker Past Alcohol Use History: Heavy Additional Past Alcohol Use History / Comment(s): Pt started smoking in 1974 and is smoking 5 cig per day. Past Drug Use History: None Reported - Past Family History Mother Family Medical History: Cancer Additional Family Medical History / Comment(s): breast cancer. Father Family Medical History: Cancer Additional Family Medical History / Comment(s): . General Exam - General Exam Comments Initial Comments: GENERAL: Patient is well-developed and well-nourished. Patient is nontoxic and well-hyd rated and is in mild distress. ENT: Neck is soft and supple. No significant lymphadenopathy is noted. Oropharynx is clear. Moist mucous membranes. Neck has full range of motion without eliciting any pain. EYES: The sclera were anicteric and conjunctiva were pink and moist. Extraocular movements were intact and pupils were equal round and reactive to light. Eyelids were unremarkable. PULMONARY: Unlabored respirations. Good breath sounds bilaterally. No audible rales rhonchi or wheezing was noted. CARDIOVASCULAR: There is a regular rate and rhythm without any murmurs gallops or rubs. ABDOMEN: Soft and nontender with normal bowel sounds. SKIN: Patient has a decubitus ulcer on the heel of the left foot and right foot there are 2 patient has a massive decubitus ulcer in the sacral iliac area extending up into the lumbar region of the back it is approximately 20 cm in diameter. Patient has significant erythema under both armpits and in the groin region as well no breakdown is noted looks consistent with a yeast infection NEUROLOGIC: Patient is alert and oriented x3. Cranial nerves II through XII are grossly intact. Motor and sensory are also intact. Normal speech, volume and content. Symmetrical smile. MUSCULOSKELETAL: Normal extremities with adequate strength and full range of motion. No lower extremity swelling or edema. No calf tenderness. LYMPHATICS: No significant lymphadenopathy is noted PSYCHIATRIC: Normal psychiatric evaluation. Course Vital Signs 07/07/23 07/07/23 07/07/23 12:35 14:00 14:15 Temperature 97.6 F Pulse Rate 113 H 112 H 124 H Respiratory 18 18 18 Rate Blood Pressure 83/37 78/55 76/57 O2 Sat by Pulse 91 L 92 L 92 L Oximetry 07/07/23 07/07/23 07/07/23 14:30 14:45 15:00 Temperature Pulse Rate 115 H 122 H 115 H Respiratory 18 18 16 Rate Blood Pressure 89/60 82/53 82/53 O2 Sat by Pulse 91 L 90 L 92 L Oximetry 07/07/23 07/07/23 07/07/23 15:15 15:30 15:45 Temperature Pulse Rate 109 H 103 H 112 H Respiratory 18 18 18 Rate Blood Pressure 95/79 93/51 88/74 O2 Sat by Pulse 91 L 91 L 92 L Oximetry 07/07/23 07/07/23 07/07/23 16:00 16:15 16:30 Temperature Pulse Rate 115 H 99 101 H Respiratory 18 18 18 Rate Blood Pressure 89/31 101/77 71/52 O2 Sat by Pulse 91 L 90 L 91 L Oximetry 07/07/23 07/07/23 07/07/23 16:45 17:00 17:15 Temperature Pulse Rate 98 104 H 122 H Respiratory 18 18 18 Rate Blood Pressure 76/55 80/59 93/68 O2 Sat by Pulse 92 L 94 L 94 L Oximetry 07/07/23 07/07/23 07/07/23 17:30 17:45 18:00 Temperature Pulse Rate 103 H 102 H 101 H Respiratory 18 18 18 Rate Blood Pressure 109/67 108/95 86/58 O2 Sat by Pulse 95 96 96 Oximetry Procedures - Sepsis Sepsis Focused Exam #1 Time Sepsis Criteria Met: 14:55 Sepsis Focused Exam Date: 07/07/23 Sepsis Focused Exam Time: 18:43 Sepsis Focused Exam Complete: Yes Vital Signs & RN Notes Reviewed: Yes Capillary Refill: > 2 Seconds: Fingers Peripheral Pulses: Weak: Radial (R), Radial (L) Skin Color: Pallor Respiratory Exam: normal lung sounds Cardiovascular Exam: tachycardia Medical Decision Making - Medical Decision Making EKG is interpreted by myself. EKG shows atrial fibrillation with rapid ventricular response at 120 bpm QRS is 100 QT interval 355 QTC is 426. Patient's EKG shows T-wave inversions in the precordial leads V5 and V6 which were seen on previous EKG. Patient's ideal body weight is 88.9 kg Was pt. sent in by a medical professional or institution (Dr., PA, [employer]RARIAN, urgent care, hospital, or fdc...) When possible be specific @ -No Did you speak to anyone other than the patient for history (EMS, parent, family, police, friend...)? What history was obtained from this source @ -EMS gave part of the history Did you review nursing and triage notes (agree or disagree)? Why? @ -I reviewed and agree with nursing and triage notes Were old charts reviewed (outside hosp., previous admission, EMS record, old EKG, old radiological studies, urgent care reports/EKG's, fdc records)? Report findings @ -. I reviewed prior charts in prior laboratory this patient. Differential Diagnosis (chest pain, altered mental status, abdominal pain women, abdominal pain men, vaginal bleeding, weakness, fever, dyspnea, syncope, headache, dizziness, GI bleed, back pain, seizure, CVA, palpatations, mental health, musculoskeletal)? @ -Diarrhea, gastroenteritis, Clostridium difficile, decubitus ulcers infected, this is not all inclusive list EKG interpreted by me (3pts min.). @ -As above X-rays interpreted by me (1pt min.). @ -None done CT interpreted by me (1pt min.). @ -None done U/S interpreted by me (1pt. min.). @ -None done What testing was considered but not performed or refused? (CT, X-rays, U/S, labs)? Why? @ -None What meds were considered but not given or refused? Why? @ -None Did you discuss the management of the patient with other professionals (professionals i.e. JENNIFER Lau, [employer]RARIAN, lab, RT, psych nurse, social media campaign manager, slab conditioner supervisor, teacher, financial administration officer, correctional counselor/case manager)? Give summary @ -[place] with Dr. Moon she agreed to admit the patient Was smoking cessation discussed for >3mins.? @ -No Was critical care preformed (if so, how long)? @ -35 minutes Were there social determinants of health that impacted care today? How? (Homelessness, low income, unemployed, alcoholism, drug addiction, tra nsportation, low edu. Level, literacy, decrease access to med. care, residential, rehab)? @ -No Was there de-escalation of care discussed even if they declined (Discuss DNR or withdrawal of care, Hospice)? DNR status @ -No What co-morbidities impacted this encounter? (DM, HTN, Smoking, COPD, CAD, Cancer, CVA, ARF, Chemo, Hep., AIDS, mental health diagnosis, sleep apnea, morbid obesity)? @ -None Was patient admitted / discharged? Hospital course, mention meds given and route, prescriptions, significant lab abnormalities, going to OR and other pertinent info. @ -Was determined the patient admitted massive decubitus ulcer on his lower back. It appeared infected erythematous around he also has some other decubitus ulcers on both heels. Patient was determined to be psychotic at 1455. Patient was given 3 L of fluid. Patient started on vancomycin and Zosyn. I spoke with the old and she agreed to admit the patient. Dr. Moon consulted Dr. Jackson. Undiagnosed new problem with uncertain prognosis? @ -No Drug Therapy requiring intensive monitoring for toxicity (Heparin, Nitro, Insulin, Cardizem)? @ -No Were any procedures done? @ -No Diagnosis/symptom? @ -Infected decubitus ulcer Acute, or Chronic, or Acute on Chronic? @ -Acute Uncomplicated (without systemic symptoms) or Complicated (systemic symptoms)? @ -Complicated Side effects of treatment? @ -No Exacerbation, Progression, or Severe Exacerbation? @ -No Poses a threat to life or bodily function? How? (Chest pain, USA, VT, pneumonia, PE, COPD, DKA, ARF, appy, cholecystitis, CVA, Diverticulitis, Homicidal, Suicidal, threat to staff... and all critical care pts) @ -Patient is septic and this could lead to end organ dysfunction Diagnosis/symptom? @ -Sepsis Acute, or Chronic, or Acute on Chronic? @ -Acute Uncomplicated (without systemic symptoms) or Complicated (systemic symptoms)? @ -Complicated Side effects of treatment? @ -none Exacerbation, Progression, or Severe Exacerbation] @ -no Poses a threat to life or bodily function? @ -Yes this could lead to poor perfusion and an organ dysfunction Diagnosis/symptom? @ -Diarrhea Acute, or Chronic, or Acute on Chronic? @ -Acute Uncomplicated (without systemic symptoms) or Complicated (systemic symptoms)? @ -Complicated Side effects of treatment? @ -none Exacerbation, Progression, or Severe Exacerbation] @ -no Poses a threat to life or bodily function? @ -no - Lab Data Result diagrams: 07/07/23 14:14 07/07/23 14:14 Lab Results 07/07/23 07/07/23 07/07/23 Range/Units 14:14 14:14 14:14 WBC 24.1 H (3.8-10.6) k/uL RBC 4.27 L (4.30-5.90) m/uL Hgb 11.6 L D (13.0-17.5) gm/dL Hct 37.3 L (39.0-53.0) % MCV 87.4 (80.0-100.0) fL MCH 27.1 (25.0-35.0) pg MCHC 31.0 (31.0-37.0) g/dL RDW 17.2 H (11.5-15.5) % Plt Count 356 (150-450) k/uL MPV 8.1 Neutrophils % (Manual) 95 % Band Neuts % (Manual) 3 % Lymphocytes % (Manual) 1 % Monocytes % (Manual) 1 % Neutrophils # (Manual) 23.60 H (1.3-7.7) k/uL Lymphocytes # (Manual) 0.24 L (1.0-4.8) k/uL Monocytes # (Manual) 0.24 (0-1.0) k/uL Nucleated RBCs 0 (0-0) /100 WBC Manual Slide Review Performed Hypochromasia Moderate Anisocytosis Slight PT 11.4 (10.0-12.5) sec INR 1.1 (<1.2) APTT 21.1 L (22.0-30.0) sec Sodium 132 L (137-145) mmol/L Potassium 4.2 (3.5-5.1) mmol/L Chloride 99 (98-107) mmol/L Carbon Dioxide 21 L (22-30) mmol/L Anion Gap 12 mmol/L BUN 22 H (9-20) mg/dL Creatinine 0.88 (0.66-1.25) mg/dL Est GFR (CKD-EPI)AfAm >90 (>60 ml/min/1.73 sqM) Est GFR (CKD-EPI)NonAf >90 (>60 ml/min/1.73 sqM) Glucose 89 (74-99) mg/dL Lactic Ac Sepsis Rflx Plasma Lactic Acid Luis (0.7-2.0) mmol/L Calcium 7.6 L (8.4-10.2) mg/dL Total Bilirubin 0.7 (0.2-1.3) mg/dL AST 28 (17-59) U/L ALT 16 (4-49) U/L Alkaline Phosphatase 127 H (38-126) U/L Creatine Kinase 154 (55-170) U/L NT-Pro-B Natriuret Pep pg/mL Total Protein 5.5 L (6.3-8.2) g/dL Albumin 2.3 L (3.5-5.0) g/dL Urine Color Urine Appearance (Clear) Urine pH (5.0-8.0) Ur Specific [place] (1.001-1.035) Urine Protein (Negative) Urine Glucose (UA) (Negative) Urine Ketones (Negative) Urine Blood (Negative) Urine Nitrite (Negative) Urine Bilirubin (Negative) Urine Urobilinogen (<2.0) mg/dL Ur Leukocyte Esterase (Negative) Urine RBC (0-5) /hpf Urine WBC (0-5) /hpf Ur Squamous Epith Cells (0-4) /hpf Urine Bacteria (None) /hpf Hyaline Casts (0-2) /lpf Urine Mucus (None) /hpf 07/07/23 07/07/23 07/07/23 Range/Units 14:14 14:14 14:14 WBC (3.8-10.6) k/uL RBC (4.30-5.90) m/uL Hgb (13.0-17.5) gm/dL Hct (39.0-53.0) % MCV (80.0-100.0) fL MCH (25.0-35.0) pg MCHC (31.0-37.0) g/dL RDW (11.5-15.5) % Plt Count (150-450) k/uL MPV Neutrophils % (Manual) % Band Neuts % (Manual) % Lymphocytes % (Manual) % Monocytes % (Manual) % Neutrophils # (Manual) (1.3-7.7) k/uL Lymphocytes # (Manual) (1.0-4.8) k/uL Monocytes # (Manual) (0-1.0) k/uL Nucleated RBCs (0-0) /100 WBC Manual Slide Review Hypochromasia Anisocytosis PT (10.0-12.5) sec INR (<1.2) APTT (22.0-30.0) sec Sodium (137-145) mmol/L Potassium (3.5-5.1) mmol/L Chloride (98-107) mmol/L Carbon Dioxide (22-30) mmol/L Anion Gap mmol/L BUN (9-20) mg/dL Creatinine (0.66-1.25) mg/dL Est GFR (CKD-EPI)AfAm (>60 ml/min/1.73 sqM) Est GFR (CKD-EPI)NonAf (>60 ml/min/1.73 sqM) Glucose (74-99) mg/dL Lactic Ac Sepsis Rflx Plasma Lactic Acid Luis 4.2 H* (0.7-2.0) mmol/L Calcium (8.4-10.2) mg/dL Total Bilirubin (0.2-1.3) mg/dL AST (17-59) U/L ALT (4-49) U/L Alkaline Phosphatase (38-126) U/L Creatine Kinase (55-170) U/L NT-Pro-B Natriuret Pep 88066 pg/mL Total Protein (6.3-8.2) g/dL Albumin (3.5-5.0) g/dL Urine Color Yellow Urine Appearance Turbid (Clear) Urine pH 5.5 (5.0-8.0) Ur Specific [place] 1.018 (1.001-1.035) Urine Protein 1+ H (Negative) Urine Glucose (UA) Negative (Negative) Urine Ketones Negative (Negative) Urine Blood Small H (Negative) Urine Nitrite Negative (Negative) Urine Bilirubin Negative (Negative) Urine Urobilinogen <2.0 (<2.0) mg/dL Ur Leukocyte Esterase Large H (Negative) Urine RBC 5 (0-5) /hpf Urine WBC 77 H (0-5) /hpf Ur Squamous Epith Cells 3 (0-4) /hpf Urine Bacteria Occasional H (None) /hpf Hyaline Casts 16 H (0-2) /lpf Urine Mucus Few H (None) /hpf 07/07/23 Range/Units 14:50 WBC (3.8-10.6) k/uL RBC (4.30-5.90) m/uL Hgb (13.0-17.5) gm/dL Hct (39.0-53.0) % MCV (80.0-100.0) fL MCH (25.0-35.0) pg MCHC (31.0-37.0) g/dL RDW (11.5-15.5) % Plt Count (150-450) k/uL MPV Neutrophils % (Manual) % Band Neuts % (Manual) % Lymphocytes % (Manual) % Monocytes % (Manual) % Neutrophils # (Manual) (1.3-7.7) k/uL Lymphocytes # (Manual) (1.0-4.8) k/uL Monocytes # (Manual) (0-1.0) k/uL Nucleated RBCs (0-0) /100 WBC Manual Slide Review Hypochromasia Anisocytosis PT (10.0-12.5) sec INR (<1.2) APTT (22.0-30.0) sec Sodium (137-145) mmol/L Potassium (3.5-5.1) mmol/L Chloride (98-107) mmol/L Carbon Dioxide (22-30) mmol/L Anion Gap mmol/L BUN (9-20) mg/dL Creatinine (0.66-1.25) mg/dL Est GFR (CKD-EPI)AfAm (>60 ml/min/1.73 sqM) Est GFR (CKD-EPI)NonAf (>60 ml/min/1.73 sqM) Glucose (74-99) mg/dL Lactic Ac Sepsis Rflx Y Plasma Lactic Acid Luis (0.7-2.0) mmol/L Calcium (8.4-10.2) mg/dL Total Bilirubin (0.2-1.3) mg/dL AST (17-59) U/L ALT (4-49) U/L Alkaline Phosphatase (38-126) U/L Creatine Kinase (55-170) U/L NT-Pro-B Natriuret Pep pg/mL Total Protein (6.3-8.2) g/dL Albumin (3.5-5.0) g/dL Urine Color Urine Appearance (Clear) Urine pH (5.0-8.0) Ur Specific [place] (1.001-1.035) Urine Protein (Negative) Urine Glucose (UA) (Negative) Urine Ketones (Negative) Urine Blood (Negative) Urine Nitrite (Negative) Urine Bilirubin (Negative) Urine Urobilinogen (<2.0) mg/dL Ur Leukocyte Esterase (Negative) Urine RBC (0-5) /hpf Urine WBC (0-5) /hpf Ur Squamous Epith Cells (0-4) /hpf Urine Bacteria (None) /hpf Hyaline Casts (0-2) /lpf Urine Mucus (None) /hpf Critical Care Time Critical Care Time: Yes Total Critical Care Time: 35 Disposition Clinical Impression: Infected decubitus ulcer, Diarrhea, Sepsis Disposition: ADMITTED IP TO THIS HOSP Time of Disposition: 18:57
[2023-07-07] MEDS: SODIUM CHLORIDE 0.9% 500 ML 500 ML IV SCH ×3 (14:25→14:30)
[2023-07-07] MEDS ORDERED: VANCOMYCIN 2,000 MG in SODIUM CHLORIDE 0.9% 500 ML 500 ML IVPB ONE (14:30)
[2023-07-07 14:50] LABS: ALT 16 U/L (4-49); AST 28 U/L (17-59); African American GFR (CKD) >90 (>60 ml/min/1.73 sqM); Albumin 2.3 g/dL (3.5-5.0); Alkaline Phosphatase 127 U/L (38-126); Anion Gap 12 mmol/L; Blood Urea Nitrogen 22 mg/dL (9-20); Calcium 7.6 mg/dL (8.4-10.2); Carbon Dioxide 21 mmol/L (22-30); Chloride 99 mmol/L (98-107); Creatine Kinase 154 U/L (55-170); Glucose 89 mg/dL (74-99); Non-African American GFR(CKD) >90 (>60 ml/min/1.73 sqM); Potassium 4.2 mmol/L (3.5-5.1); Sodium 132 mmol/L (137-145); Total Bilirubin 0.7 mg/dL (0.2-1.3); Total Protein 5.5 g/dL (6.3-8.2)
[2023-07-07 14:51] LABS: Anisocytosis Slight; HCT 37.3 % (39.0-53.0); Hypochromasia Moderate; MCH 27.1 pg (25.0-35.0); MCV 87.4 fL (80.0-100.0); Mean Platelet Volume 8.1; Platelet Count 356 k/uL (150-450); RBC 4.27 m/uL (4.30-5.90); RDW 17.2 % (11.5-15.5); WBC 24.1 k/uL (3.8-10.6)
[2023-07-07 14:53] LABS: HGB 11.6 gm/dL (13.0-17.5)
[2023-07-07 15:19] LABS: INR 1.1 (<1.2); Partial Thromboplastin Time 21.1 sec (22.0-30.0); Prothrombin Time 11.4 sec (10.0-12.5)
[2023-07-07 15:27] LABS: Band Neutrophils % 3 %; Lymphocytes # (M) 0.24 k/uL (1.0-4.8); Monocytes # (M) 0.24 k/uL (0-1.0); Neutrophils % (M) 95 %; Nucleated Red Blood Cells 0 /100 WBC (0-0); Total Cells Counted 100
[2023-07-07] MEDS ORDERED: MELATONIN 3 MG TABLET PO PRN (17:53)
[2023-07-07] MEDS ORDERED: NALOXONE 0.4 MG/ML 1 ML VIAL IV PRN (17:53)
[2023-07-07] MEDS ORDERED: ACETAMINOPHEN TAB 325 MG TAB PO PRN (17:53)
[2023-07-07] MEDS ORDERED: ONDANSETRON 4 MG/2 ML VIAL IVP PRN (17:53)
[2023-07-07] MEDS ORDERED: ALPRAZolam 0.25 MG TAB PO PRN (17:53)
[2023-07-07] MEDS ORDERED: HYDROcodone/APAP 5-325MG 1 EACH TAB PO PRN (17:53)
[2023-07-07] MEDS ORDERED: NICOTINE GUM (POLACRILEX) 2 MG GUM BUCCAL PRN (17:53)
[2023-07-07 18:17] LABS: Appearance,Urine Turbid (Clear); Bacteria,Urine Occasional /hpf; Bilirubin,Urine Negative (Negative); Blood,Urine Small (Negative); Color,Urine Yellow; Glucose,Urine (UA) Negative (Negative); Hyaline Casts,Urine 16 /lpf (0-2); Ketones,Urine Negative (Negative); Leukocyte Esterase,Urine Large (Negative); Mucus,Urine Few /hpf; Nitrite,Urine Negative (Negative); PH, Urine 5.5 (5.0-8.0); Protein,Urine 1+ (Negative); RBC,Urine 5 /hpf (0-5); Specific Gravity,Urine 1.018 (1.001-1.035); Squamous Epithelial Cell,Urine 3 /hpf (0-4); Urobilinogen,Urine <2.0 mg/dL (<2.0); WBC,Urine 77 /hpf (0-5)
[2023-07-07] MEDS ORDERED: ZINC OXIDE PASTE (Z-GUARD) 1 APPLIC TOPICAL PRN (18:25)
--- NOTE | 2023-07-07 18:28 | P.HPIM ---
History of Present Illness H&P Date: 07/07/23 Patient is a 63-year-old male with permanent atrial fibrillation, COPD, hypertension, congestive heart failure per patient, and chronic lower extremity weakness who presented to the ER due to increased congestion. On arrival to the ER his vital signs were remarkable for a blood pressure of 83/37 and a pulse of 113. Laboratory analysis included CBC, coags, CMP, CK, and lactic acid which were remarkable for white blood cell count 24.1, hemoglobin 11.6, sodium 132, and lactic acid of 4.2. On arrival to the emergency department the patient was covered in feces and was desheveled. Patient seen and examined at bedside. He is lethargic when I initially start speaking to him. He then comes 2. He states it is hard for him to remember why he came to the emergency department. He believes it is due to chest congestion and cough. He states that he ran out of his medications one week ago. He is no longer able to get up to move to get his medications. He reports that he has not really been out of his chair in at least 1 month, he indicates since last time he left the hospital which is closer to 8 weeks ago. He reports his mother has been bringing him fast food every day but she can't really do more as she is 89 years old. He is no longer walking. 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 He reports he has been having copious amounts of diarrhea and stool has been unable to keep himself clean. He states he did stop drinking approximately 3 months ago. He still smokes half a pack to three quarters of a pack daily. He denies any nausea or vomiting. He denies any abdominal pain. He denies any pain in his buttock. He reports that his legs are like noodles and he is unable to move them well. Vital signs reviewed General: ill appearing, mod distress, appear old than stated age, obese, Malodorus Derm: large decubitus ulcer stage 4 with acreas of necrosis over low back and sacral area wtih purulen drainage approx 12X12 inchesh, stage III b/l heel ulcers. redenss and excoriation to abdominal pannus, gb/l groin, b/l axilla Eyes: EOMI, no lid lag, anicteric sclera, pupils equal round reactive to light ENT: Nose and ears atraumatic, no thrush, no pharyngeal erythema, + dry mucum memebranes Cardiovascular: S1S2 irreg and tachy, no murmur, positive posterior tibial pulse bilateral, trace edema, capillary refill greater than 2 seconds Lungs: clear to auscultation bilateral, no rhonchi, no rales, no wheeze, no acc essory muscle use Abdominal: soft, nontender to palpation, no guarding, no appreciable organomegaly, normal bowel sounds Ext: + gross muscle atrophy, + Flexion contracture in b/l le Neuro: CN II-XII grossly intact, decreased movement b/l LE Psych: Alert, oriented, appropriate affect Assessment/Plan: Infected lumbar and sacral decubitus ulcer with severe sepsis Lactic adiosis Functional quadralplegia with b/l le flexion contracture B/l Heel stage II pressure ulcures Severe Protein calorie malnutrition Class II obesity wtih BMI 37.5 Contact dermatitis of b/l groin, abdominal pannus, and axillary area - admit patient to ICU due to borderline blood pressure and concerns for necortizing infection - Prone patient if able - case disucess with Dr Fowler - Case discussed with Dr. Jackson and possible OR tomorrow depending on clinical stability - Consult ID - Zosyn 3.375 gram IVPB q 8 hours, Vanco IVPB dosing per weight and Cr (monitor trough and Cr for toxicity), Eraxis 100 mg IVPB daily - normal saline at 130 cc/ low treshold for vasopressor support - Bain to keep wound clean, rectal tube if stool is loose Diarrhea - start lactobacillus - check C. Diff - suspect related to dietary intake A fib wtih RVR CHF per patient report HTN - check stat CXR and BNP - hold lasix, metoprolol, and aldactone due to low BP Anemia - no indication for transfusion - repeat CBC in AM COPD without exacerbation Nicotine dependency - nicotine patch 14 mg, nicotine 2 mg q 2 hous prn Imaging: Await CT abd and pelvis, await CXR EKG is reviewed by myself reveals atrial fibrillation with rapid ventricular response at a rate of 120 with T-wave inversions in V5 and 6 Data Review: As per HPI poopr overall prognosis The patient is admitted with an anticipated greater than 2 midnight stay for evaluation of Infected sacral decub with sepsis Surrogate decision-maker: MOther CODE STATUS:Full DVT prophylaxis: Lovenox Anticipated discharge date: pending clinical course Anticipated discharge place: pending clinical course This dictation was prepared using [employer] voice recognition software. Though every attempt is made to correct errors during dictation some may still exist. Past Medical History Past Medical History: Atrial Fibrillation, Atrial Flutter, COPD, GI Bleed, Hypertension, Vascular Disorder Additional Past Medical History / Comment(s): hx Bilateral lower leg edema- "retains water", History of Any Multi-Drug Resistant Organisms: MRSA Date of last positivie culture/infection: 8 YEARS AGO-treated in [facility] MDRO Source:: LEFT ABD Past Surgical History: Bowel Resection, EPS, Heart Catheterization Additional Past Surgical History / Comment(s): Bowel resection d/t a fistula, colonoscopy, EPS and cardioversion, Past Anesthesia/Blood Transfusion Reactions: No Reported Reaction Past Psychological History: Anxiety, Depression Additional Psychological History / Comment(s): Single but lives with his girlfriend. No children. 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 Is an active tobacco smoker. Relates he drinks alcohol but has no difficulties with alcohol. No current recreational drug use and has no history of injection drug use. Pet dog in the home which is a pitbull, it is a puppy. No experience. No international travel Smoking Status: Current every day smoker Past Alcohol Use History: Heavy Additional Past Alcohol Use History / Comment(s): Pt started smoking in 1974 and is smoking 5 cig per day. Past Drug Use History: None Reported - Past Family History Mother Family Medical History: Cancer Additional Family Medical History / Comment(s): breast cancer. Father Family Medical History: Cancer Additional Family Medical History / Comment(s): . Medications and Allergies Home Medications Medication Instructions Recorded Confirmed Type Atorvastatin [Lipitor] 20 mg PO DAILY #30 tab 04/29/23 07/07/23 Rx Furosemide [Lasix] 20 mg PO DAILY #14 tab 04/29/23 07/07/23 Rx Spironolactone [Aldactone] 25 mg PO DAILY #14 tab 04/29/23 07/07/23 Rx lisinopriL [Zestril] 5 mg PO HS #14 tab 04/30/23 07/07/23 Rx Metoprolol Tartrate [Lopressor] 12.5 mg PO BID 05/08/23 07/07/23 History Allergies Allergy/AdvReac Type Severity Reaction Status Date / Time No Known Allergies Allergy Verified 07/07/23 15:58 Physical Exam Osteopathic Statement: *. No significant issues noted on an osteopathic structural exam other than those noted in the History and Physical/Consult. Vitals: Vital Signs Temp Pulse Resp BP Pulse Ox 07/07/23 18:00 101 H 18 86/58 96 07/07/23 17:45 102 H 18 108/95 96 07/07/23 17:30 103 H 18 109/67 95 07/07/23 17:15 122 H 18 93/68 94 L 07/07/23 17:00 104 H 18 80/59 94 L 07/07/23 16:45 98 18 76/55 92 L 07/07/23 16:30 101 H 18 71/52 91 L 07/07/23 16:15 99 18 101/77 90 L 07/07/23 16:00 115 H 18 89/31 91 L 07/07/23 15:45 112 H 18 88/74 92 L 07/07/23 15:30 103 H 18 93/51 91 L 07/07/23 15:15 109 H 18 95/79 91 L 07/07/23 15:00 115 H 16 82/53 92 L 07/07/23 14:45 122 H 18 82/53 90 L 07/07/23 14:30 115 H 18 89/60 91 L 07/07/23 14:15 124 H 18 76/57 92 L 07/07/23 14:00 112 H 18 78/55 92 L 07/07/23 12:35 97.6 F 113 H 18 83/37 91 L Intake and Output 07/07/23 07/07/23 07/07/23 06:59 14:59 22:59 Other: Weight 136.078 kg Results CBC & Chem 7: 07/07/23 14:14 07/07/23 14:14 Labs: Abnormal Lab Results - Last 24 Hours (Table) 07/07/23 07/07/23 07/07/23 Range/Units 14:14 14:14 14:14 WBC 24.1 H (3.8-10.6) k/uL RBC 4.27 L (4.30-5.90) m/uL Hgb 11.6 L D (13.0-17.5) gm/dL Hct 37.3 L (39.0-53.0) % RDW 17.2 H (11.5-15.5) % Neutrophils # (Manual) 23.60 H (1.3-7.7) k/uL Lymphocytes # (Manual) 0.24 L (1.0-4.8) k/uL APTT 21.1 L (22.0-30.0) sec Sodium 132 L (137-145) mmol/L Carbon Dioxide 21 L (22-30) mmol/L BUN 22 H (9-20) mg/dL Plasma Lactic Acid Luis (0.7-2.0) mmol/L Calcium 7.6 L (8.4-10.2) mg/dL Alkaline Phosphatase 127 H (38-126) U/L Total Protein 5.5 L (6.3-8.2) g/dL Albumin 2.3 L (3.5-5.0) g/dL Urine Protein (Negative) Urine Blood (Negative) Ur Leukocyte Esterase (Negative) Urine WBC (0-5) /hpf Urine Bacteria (None) /hpf Hyaline Casts (0-2) /lpf Urine Mucus (None) /hpf 07/07/23 07/07/23 Range/Units 14:14 14:14 WBC (3.8-10.6) k/uL RBC (4.30-5.90) m/uL Hgb (13.0-17.5) gm/dL Hct (39.0-53.0) % RDW (11.5-15.5) % Neutrophils # (Manual) (1.3-7.7) k/uL Lymphocytes # (Manual) (1.0-4.8) k/uL APTT (22.0-30.0) sec Sodium (137-145) mmol/L Carbon Dioxide (22-30) mmol/L BUN (9-20) mg/dL Plasma Lactic Acid Luis 4.2 H* (0.7-2.0) mmol/L Calcium (8.4-10.2) mg/dL Alkaline Phosphatase (38-126) U/L Total Protein (6.3-8.2) g/dL Albumin (3.5-5.0) g/dL Urine Protein 1+ H (Negative) Urine Blood Small H (Negative) Ur Leukocyte Esterase Large H (Negative) Urine WBC 77 H (0-5) /hpf Urine Bacteria Occasional H (None) /hpf Hyaline Casts 16 H (0-2) /lpf Urine Mucus Few H (None) /hpf
--- NOTE | 2023-07-07 19:20 | XR ---
EXAMINATION TYPE: XR chest 1V portable DATE OF EXAM: 07/07/2023 6:59 PM CLINICAL INDICATION:Male, 63 years old with history of shortness of breath; [facility] COMPARISON: Chest radiographs from 05/08/2023. TECHNIQUE: XR chest 1V portable Frontal view of the chest. FINDINGS: Lungs/Pleura: There is flattening of the diaphragm with increased lucency of the lungs. No evidence o f pneumothorax, pleural effusion or focal consolidation. Pulmonary vascularity: Unremarkable. Heart/mediastinum: Cardiomediastinal silhouette is enlarged and stable. Musculoskeletal: No acute osseous pathology. IMPRESSION: 1. No acute cardiopulmonary disease process. 2. COPD changes.
--- NOTE | 2023-07-07 19:38 | P.GSCN ---
History of Present Illness Consult date: 07/07/23 Reason for Consult: sacral decubitus ulcer History of present illness: 63-year-old male comes to the ER today with weakness. Also had complaints of cough and congestion. Patient apparently has not been out of bed and has not been taking his medications. Patient has had significant diarrhea. States he has not been able to keep himself clean. Describes diffuse weakness. In the ER the patient had hypotension and tachycardia. Elevated white blood cell count. Elevated lactic acid. Patient admitted for sepsis. On exam patient was found to have a large necrotic sacral decubitus ulcer. We were consulted for debridement. Review of Systems The patient denies any acute changes in vision or hearing, no dysphagia or odynophagia, no dysuria or hematuria, no headache, no runny nose, no rectal bleeding or melena ROS unobtainable: due to mental status Past Medical History Past Medical History: Atrial Fibrillation, Atrial Flutter, COPD, GI Bleed, Hypertension, Vascular Disorder Additional Past Medical History / Comment(s): hx Bilateral lower leg edema- "retains water", History of Any Multi-Drug Resistant Organisms: MRSA Year Discovered:: 8 YEARS AGO-treated in [facility] MDRO Source:: LEFT ABD Past Surgical History: Bowel Resection, EPS, Heart Catheterization Additional Past Surgical History / Comment(s): Bowel resection d/t a fistula, colonoscopy, EPS and cardioversion, Past Anesthesia/Blood Transfusion Reactions: No Reported Reaction Past Psychological History: Anxiety, Depression Additional Psychological History / Comment(s): Single but lives with his girlfriend. No children. 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 Is an active tobacco smoker. Relates he drinks alcohol but has no difficulties with alcohol. No current recreational drug use and has no history of injection drug use. Pet dog in the home which is a pitbull, it is a puppy. No experience. No international travel Smoking Status: Current every day smoker Past Alcohol Use History: Heavy Additional Past Alcohol Use History / Comment(s): Pt started smoking in 1974 and is smoking 5 cig per day. Past Drug Use History: None Reported - Past Family History Mother Family Medical History: Cancer Additional Family Medical History / Comment(s): breast cancer. Father Family Medical History: Cancer Additional Family Medical History / Comment(s): . Medications and Allergies Home Medications Medication Instructions Recorded Confirmed Type Atorvastatin [Lipitor] 20 mg PO DAILY #30 tab 04/29/23 07/07/23 Rx Furosemide [Lasix] 20 mg PO DAILY #14 tab 04/29/23 07/07/23 Rx Spironolactone [Aldactone] 25 mg PO DAILY #14 tab 04/29/23 07/07/23 Rx lisinopriL [Zestril] 5 mg PO HS #14 tab 04/30/23 07/07/23 Rx Metoprolol Tartrate [Lopressor] 12.5 mg PO BID 05/08/23 07/07/23 History Allergies Allergy/AdvReac Type Severity Reaction Status Date / Time No Known Allergies Allergy Verified 07/07/23 15:58 Surgical - Exam Vital Signs Temp Pulse Resp BP Pulse Ox 97.6 F 113 H 18 83/37 91 L 07/07/23 12:35 07/07/23 12:35 07/07/23 12:35 07/07/23 12:35 07/07/23 12:35 Physical exam: General: Well-developed, poorly nourished male HEENT: Normocephalic, sclerae nonicteric Abdomen: Nontender, nondistended Extremities: large decubitus ulcer involving the sacrum and lower back, extensive necrotic tissue and erythema, crepitus present Neuro: Alert and oriented Results - Labs 07/07/23 14:14 07/07/23 14:14 Abnormal Lab Results - Last 24 Hours (Table) 07/07/23 07/07/23 07/07/23 Range/Units 14:14 14:14 14:14 WBC 24.1 H (3.8-10.6) k/uL RBC 4.27 L (4.30-5.90) m/uL Hgb 11.6 L D (13.0-17.5) gm/dL Hct 37.3 L (39.0-53.0) % RDW 17.2 H (11.5-15.5) % Neutrophils # (Manual) 23.60 H (1.3-7.7) k/uL Lymphocytes # (Manual) 0.24 L (1.0-4.8) k/uL APTT 21.1 L (22.0-30.0) sec Sodium 132 L (137-145) mmol/L Carbon Dioxide 21 L (22-30) mmol/L BUN 22 H (9-20) mg/dL Plasma Lactic Acid Luis (0.7-2.0) mmol/L Calcium 7.6 L (8.4-10.2) mg/dL Alkaline Phosphatase 127 H (38-126) U/L Total Protein 5.5 L (6.3-8.2) g/dL Albumin 2.3 L (3.5-5.0) g/dL Urine Protein (Negative) Urine Blood (Negative) Ur Leukocyte Esterase (Negative) Urine WBC (0-5) /hpf Urine Bacteria (None) /hpf Hyaline Casts (0-2) /lpf Urine Mucus (None) /hpf 07/07/23 07/07/23 07/07/23 Range/Units 14:14 14:14 18:05 WBC (3.8-10.6) k/uL RBC (4.30-5.90) m/uL Hgb (13.0-17.5) gm/dL Hct (39.0-53.0) % RDW (11.5-15.5) % Neutrophils # (Manual) (1.3-7.7) k/uL Lymphocytes # (Manual) (1.0-4.8) k/uL APTT (22.0-30.0) sec Sodium (137-145) mmol/L Carbon Dioxide (22-30) mmol/L BUN (9-20) mg/dL Plasma Lactic Acid Luis 4.2 H* 3.1 H* (0.7-2.0) mmol/L Calcium (8.4-10.2) mg/dL Alkaline Phosphatase (38-126) U/L Total Protein (6.3-8.2) g/dL Albumin (3.5-5.0) g/dL Urine Protein 1+ H (Negative) Urine Blood Small H (Negative) Ur Leukocyte Esterase Large H (Negative) Urine WBC 77 H (0-5) /hpf Urine Bacteria Occasional H (None) /hpf Hyaline Casts 16 H (0-2) /lpf Urine Mucus Few H (None) /hpf Diabetes panel 07/07/23 Range/Units 14:14 Sodium 132 L (137-145) mmol/L Potassium 4.2 (3.5-5.1) mmol/L Chloride 99 (98-107) mmol/L Carbon Dioxide 21 L (22-30) mmol/L BUN 22 H (9-20) mg/dL Creatinine 0.88 (0.66-1.25) mg/dL Glucose 89 (74-99) mg/dL Calcium 7.6 L (8.4-10.2) mg/dL AST 28 (17-59) U/L ALT 16 (4-49) U/L Alkaline Phosphatase 127 H (38-126) U/L Total Protein 5.5 L (6.3-8.2) g/dL Albumin 2.3 L (3.5-5.0) g/dL Calcium panel 07/07/23 Range/Units 14:14 Calcium 7.6 L (8.4-10.2) mg/dL Albumin 2.3 L (3.5-5.0) g/dL Pituitary panel 07/07/23 Range/Units 14:14 Sodium 132 L (137-145) mmol/L Potassium 4.2 (3.5-5.1) mmol/L Chloride 99 (98-107) mmol/L Carbon Dioxide 21 L (22-30) mmol/L BUN 22 H (9-20) mg/dL Creatinine 0.88 (0.66-1.25) mg/dL Glucose 89 (74-99) mg/dL Calcium 7.6 L (8.4-10.2) mg/dL Adrenal panel 07/07/23 Range/Units 14:14 Sodium 132 L (137-145) mmol/L Potassium 4.2 (3.5-5.1) mmol/L Chloride 99 (98-107) mmol/L Carbon Dioxide 21 L (22-30) mmol/L BUN 22 H (9-20) mg/dL Creatinine 0.88 (0.66-1.25) mg/dL Glucose 89 (74-99) mg/dL Calcium 7.6 L (8.4-10.2) mg/dL Total Bilirubin 0.7 (0.2-1.3) mg/dL AST 28 (17-59) U/L ALT 16 (4-49) U/L Alkaline Phosphatase 127 H (38-126) U/L Total Protein 5.5 L (6.3-8.2) g/dL Albumin 2.3 L (3.5-5.0) g/dL Assessment and Plan (1) Infected decubitus ulcer Narrative/Plan: 63-year-old male with infected decubitus ulcer. Will proceed with operative debridement at this time. Risks of bleeding, progressive infection, progressive sepsis, respiratory failure, possible need for further surgeries, poor healing discussed. He understands and wishes to proceed. Current Visit: Yes Status: Acute Code(s): L89.90 - PRESSURE ULCER OF UNSPECIFIED SITE, UNSPECIFIED STAGE; L08.9 - LOCAL INFECTION OF THE SKIN AND SUBCUTANEOUS TISSUE, UNSP SNOMED Code(s): 277090481
[2023-07-07] MEDS ORDERED: LACTATED RINGERS 1,000 ML IV ONE (19:49)
--- NOTE | 2023-07-07 20:04 | CT ---
EXAMINATION TYPE: CT abdomen pelvis w con CT DLP: 3541 mGycm, Automated exposure control for dose reduction was used. DATE OF EXAM: 07/07/2023 7:30 PM COMPARISON: none CLINICAL INDICATION:Male, 63 years old with history of Back infection; TECHNIQUE: Axial CT abdomen pelvis w con;Sagittal and coronal reformats were created on a separate w orkstation. Contrast used: mL of , (none if empty) Oral contrast used: (none if empty) FINDINGS: LOWER CHEST: Small bilateral pleural effusions. Bilateral gynecomastia changes. The heart is enlarged for size. ABDOMEN LIVER: Unremarkable GALLBLADDER AND BILE DUCTS: Unremarkable. PANCREAS: Unremarkable. SPLEEN: Unremarkable. ADRENAL GLANDS: Unremarkable. KIDNEYS AND URETERS: Left nonobstructing calculus measuring 5 mm. No right renal calculi. No hydronep hrosis. PELVIS BLADDER: Nondistended with Bain catheter in place. REPRODUCTIVE: Unremarkable. ABDOMEN & PELVIS STOMACH AND BOWEL: No evidence of bowel obstruction. PERITONEUM/RETROPERITONEUM: No evidence of pneumoperitoneum or free fluid. VASCULATURE: No evidence of aortic aneurysm. MUSCULOSKELETAL: No acute osseous abnormalities, degeneration changes of the hips. Please see below r egarding sacral decubitus ulcer. LYMPH NODES: No gross evidence for lymphadenopathy. SOFT TISSUE/ABDOMINAL WALL: Fat-containing umbilical hernia. There is fat stranding and edema visualized in the perineum most pronounced in the inferior aspect on the left in the last images in the [id number].. There is a large ulcer over the sacrum/coccyx baljit suring at least there are peripelvic 10.9 cm with the sacrum and coccyx exposed. No organizing fluid collections are visualized. There is subcutaneous gas likely secondary to this large skin and subcuta neous defect over the sacrum. The sacrum and coccyx do not definitively demonstrate erosion on CT steven ging to suggest osteomyelitis.. No evidence of fracture. IMPRESSION: 1. Large sacral decubitus ulcer with exposed sacrum and coccyx bone. No organizing fluid collections to suggest abscess. Gas tracking along the myofascial planes in the buttock/pelvic region is felt to likely be due to this large defect in the skin and subcutaneous tissues. No definitive osseous erosi on to suggest osteomyelitis 2. Subcutaneous changes edema throughout the soft tissues around the pelvis particularly the anterio r peritoneum. Correlate for cellulitis. 3. Cardiomegaly with bilateral pleural effusions. 4. Nonobstructing left renal calculus.
[2023-07-07] MEDS ORDERED: NOREPINEPHRINE 1 MG/ML 4 ML VIAL IV ONE (20:46)
[2023-07-07] MEDS ORDERED: MIDAZOLAM 2 MG/2 ML VIAL ONE (20:46)
[2023-07-07] MEDS ORDERED: PHENYLEPHRINE 10 MG/ML VIAL ONE (20:46)
[2023-07-07] MEDS ORDERED: fentaNYL (PF) 50 MCG/ML 2 ML AMP ONE (20:46)
[2023-07-07] MEDS ORDERED: ETOMIDATE 2 MG/ML 10 ML VIAL ONE (20:46)
[2023-07-07 20:50] LABS: ABG Base Excess -3.6 mmol/L; ABG HCO3 23 mmol/L (21-25); ABG Oxygen Saturation 98.9 % (94-97); ABG PCO2 52 mmHg (35-45); ABG PH 7.26 (7.35-7.45); ABG PO2 376 mmHg (83-108); ABG TCO2 25 mmol/L (19-24); Allen Test Performed? Yes
[2023-07-07] MEDS ORDERED: ANIDULAFUNGIN 200 MG in SODIUM CHLORIDE 0.9% 200 ML IVPB ONE (21:00)
[2023-07-07] MEDS ORDERED: propofoL 100 ML IV ONE (21:13)
--- NOTE | 2023-07-07 21:14 | P.OP ---
Date of Procedure: 07/07/23 Procedure(s) Performed: PREOPERATIVE DIAGNOSIS: sacral decubitus ulcer POSTOPERATIVE DIAGNOSIS: same PROCEDURE: wide excisional debridement necrotic sacral decubitus ulcer SURGEON: Manuel EBL: 100cc ANESTHESIA: general COMPLICATIONS: None OPERATIVE PROCEDURE: patient placed in the right decubitus position after general anesthesia achieved. Patient had a large necrotic decubitus ulcer involving the lower back and sacrum. This measured 18 inches vertically and 16 inches horizontally. Wide debridement took place including necrotic skin and fat and muscle. There was undermining superiorly and this was opened up as well. Bleeding was controlled using electrocautery. Sterile Kerlix rolls and ABDs were used for dressings. DISPOSITION: patient will be transferred to the ICU in guarded condition. Case discussed with the show host/hostess.
[2023-07-07 21:15] LABS: Glucose,Whole Blood 117 mg/dL (70-110)
[2023-07-07] MEDS ORDERED: SODIUM CHLORIDE 0.9% 1,000 ML IV ONE (21:25)
[2023-07-07] MEDS ORDERED: AMIODARONE 360 MG in DEXTROSE 5% IN WATER 200 ML IV ONE ×2 (21:26)
[2023-07-07] MEDS ORDERED: DEXTROSE 5% IN WATER 100 ML with AMIODARONE 150 MG IV ONE (21:26)
[2023-07-07] MEDS ORDERED: AMIODARONE 450 MG in DEXTROSE 5% IN WATER 250 ML IV SCH ×2 (21:30)
[2023-07-07] MEDS: NOREPINEPHRINE 4 MG in SODIUM CHLORIDE 0.9% 250 ML IV SCH (21:30)
[2023-07-07 21:42] LABS: ABG Base Excess -4.4 mmol/L; ABG HCO3 23 mmol/L (21-25); ABG Oxygen Saturation 99.3 % (94-97); ABG PCO2 49 mmHg (35-45); ABG PH 7.27 (7.35-7.45); ABG PO2 384 mmHg (83-108); ABG TCO2 24 mmol/L (19-24); Allen Test Performed? Yes
[2023-07-07] MEDS ORDERED: Potassium Replacement Protocol 1 EACH MISC MISCELLANE PRN (21:50)
[2023-07-07] MEDS: SODIUM CHLORIDE 0.9% 1,000 ML IV SCH (22:39)
[2023-07-07] MEDS ORDERED: METOPROLOL TARTRATE 5 MG/5 ML VIAL IVP ONE (23:04)
[2023-07-08 00:05] LABS: Anisocytosis Slight; HCT 28.8 % (39.0-53.0); Hypochromasia Moderate; MCH 27.4 pg (25.0-35.0); MCHC 31.6 g/dL (31.0-37.0); MCV 86.7 fL (80.0-100.0); Mean Platelet Volume 7.7; Platelet Count 351 k/uL (150-450); RBC 3.32 m/uL (4.30-5.90); RDW 17.4 % (11.5-15.5); WBC 31.5 k/uL (3.8-10.6)
[2023-07-08 00:07] LABS: HGB 9.1 gm/dL (13.0-17.5)
[2023-07-08 00:19] LABS: ALT 13 U/L (4-49); AST 31 U/L (17-59); African American GFR (CKD) >90 (>60 ml/min/1.73 sqM); Albumin 1.6 g/dL (3.5-5.0); Alkaline Phosphatase 105 U/L (38-126); Anion Gap 7 mmol/L; Blood Urea Nitrogen 19 mg/dL (9-20); Calcium 6.8 mg/dL (8.4-10.2); Carbon Dioxide 19 mmol/L (22-30); Chloride 106 mmol/L (98-107); Glucose 157 mg/dL (74-99); Magnesium 1.4 mg/dL (1.6-2.3); Non-African American GFR(CKD) >90 (>60 ml/min/1.73 sqM); Potassium 3.6 mmol/L (3.5-5.1); Sodium 132 mmol/L (137-145); Total Bilirubin 0.3 mg/dL (0.2-1.3); Total Protein 4.2 g/dL (6.3-8.2)
[2023-07-08 00:22] LABS: Anisocytosis (M) Present; Band Neutrophils % 13 %; Lymphocytes # (M) 0.95 k/uL (1.0-4.8); Monocytes # (M) 0.63 k/uL (0-1.0); Neutrophils % (M) 83 %; Nucleated Red Blood Cells 0 /100 WBC (0-0); Total Cells Counted 200
[2023-07-08 00:23] LABS: Polychromasia Present
[2023-07-08] MEDS ORDERED: Magnesium Replacement Protocol 1 EACH MISC MISCELLANE PRN (00:29)
[2023-07-08] MEDS: PIPERACILLIN-TAZOBACTAM 3.375 GM in SODIUM CHLORIDE 0.9% 100 ML IVPB SCH ×4 (00:38→23:45)
[2023-07-08] MEDS: MAGNESIUM SULFATE-D5W PMX 1 GM in DEXTROSE/WATER 1 100ML.BAG IVPB SCH ×2 (00:51→01:16)
[2023-07-08] MEDS: LACTOBACILLUS ACIDOPHILUS/PECT 1 EACH CAPSULE PO SCH ×3 (00:53→17:13)
[2023-07-08] MEDS ORDERED: POTASSIUM BICARBONATE/CIT AC 20 MEQ TABLET.EFF NG-TUBE SCH ×2 (01:00→06:00)
[2023-07-08] MEDS: VANCOMYCIN 2,000 MG in SODIUM CHLORIDE 0.9% 500 ML 500 ML IVPB SCH ×2 (01:09→14:10)
[2023-07-08] MEDS ORDERED: THIAMINE 100 MG/ML 2 ML VIAL IM STA (01:17)
[2023-07-08 03:09] LABS: Appearance,Urine Turbid (Clear); Bacteria,Urine Occasional /hpf; Bilirubin,Urine Negative (Negative); Blood,Urine Trace (Negative); Color,Urine Colorless; Glucose,Urine (UA) Negative (Negative); Hyaline Casts,Urine 17 /lpf (0-2); Ketones,Urine Negative (Negative); Leukocyte Esterase,Urine Large (Negative); Mucus,Urine Rare /hpf; Nitrite,Urine Negative (Negative); Protein,Urine Trace (Negative); RBC,Urine 6 /hpf (0-5); Specific Gravity,Urine 1.019 (1.001-1.035); Squamous Epithelial Cell,Urine <1 /hpf (0-4); Uric Acid Crystals,Urine Few /hpf; Urobilinogen,Urine <2.0 mg/dL (<2.0); WBC,Urine >182 /hpf (0-5)
[2023-07-08] MEDS: NOREPINEPHRINE 4 MG in SODIUM CHLORIDE 0.9% 250 ML IV SCH ×6 (03:34→23:46)
[2023-07-08 05:04] LABS: Glucose,Whole Blood 158 mg/dL (70-110)
[2023-07-08 05:26] LABS: Anisocytosis Slight; Basophils # (A) 0.1 k/uL (0-0.2); Basophils % (A) 0 %; Eosinophils % (A) 0 %; HCT 31.6 % (39.0-53.0); Hypochromasia Moderate; Lymphocytes # (A) 1.2 k/uL (1.0-4.8); Lymphocytes % (A) 5 %; MCH 27.2 pg (25.0-35.0); MCHC 31.6 g/dL (31.0-37.0); MCV 86.2 fL (80.0-100.0); Mean Platelet Volume 8.4; Monocytes # (A) 0.5 k/uL (0-1.0); Monocytes % (A) 2 %; Neutrophils # (A) 23.3 k/uL (1.3-7.7); Neutrophils % (A) 92 %; Platelet Count 333 k/uL (150-450); RBC 3.66 m/uL (4.30-5.90); WBC 25.3 k/uL (3.8-10.6)
[2023-07-08 05:38] LABS: African American GFR (CKD) >90 (>60 ml/min/1.73 sqM); Anion Gap 12 mmol/L; Blood Urea Nitrogen 19 mg/dL (9-20); Calcium 6.8 mg/dL (8.4-10.2); Carbon Dioxide 17 mmol/L (22-30); Chloride 106 mmol/L (98-107); Glucose 141 mg/dL (74-99); Magnesium 1.7 mg/dL (1.6-2.3); Non-African American GFR(CKD) >90 (>60 ml/min/1.73 sqM); Phosphorus 4.7 mg/dL (2.5-4.5); Potassium 3.8 mmol/L (3.5-5.1); Sodium 135 mmol/L (137-145)
[2023-07-08] MEDS: VASOPRESSIN 60 UNIT in SODIUM CHLORIDE 0.9% 150 ML IV SCH ×2 (05:52→23:46)
[2023-07-08 05:54] LABS: ABG Base Excess -4.5 mmol/L; ABG HCO3 20 mmol/L (21-25); ABG Oxygen Saturation 98.2 % (94-97); ABG PCO2 34 mmHg (35-45); ABG PH 7.39 (7.35-7.45); ABG PO2 124 mmHg (83-108); ABG TCO2 21 mmol/L (19-24); Allen Test Performed? Yes
[2023-07-08 05:54] LABS: INR 1.1 (<1.2); Prothrombin Time 11.6 sec (10.0-12.5)
[2023-07-08] MEDS ORDERED: MAGNESIUM SULFATE-D5W PMX 1 GM in DEXTROSE/WATER 1 100ML.BAG IVPB ONE (06:00)
--- NOTE | 2023-07-08 06:03 | P.CNPUL ---
History of Present Illness Consult date: 07/08/23 Requesting physician: Kady Moon Reason for consult: other (ICU management, infected sacral decubitus ulcer, sepsis) Chief complaint: Weakness and diarrhea History of present illness: I am seeing this patient in consultation today 07/08/2023 in the intensive care unit after presenting to the emergency room yesterday afternoon. He was found to have a large sacral decubitus ulcer that was felt to be infected. He underwent excisional debridement of the necrotic sacral decubitus ulcer late last night. He was then transferred to the intensive care unit and remains on the ventilator. Patient is a 63-year-old white male with past medical history significant for atrial fibrillation, hypertension, hyperlipidemia, COPD, chronic ongoing tobacco dependence, alcoholism, among other things. As stated, the patient is currently intubated on the mechanical ventilator, and unable to provide any history. Patient's mother is at the bedside, reports that over the last month or so the patient has been fairly dependent in his chair. He's been very weak and unable to ambulate. She has been bringing him food. He likely hasn't been taking his medications for the last 2 weeks because he ran out. He's had ongoing issues with diarrhea and cannot get to the bathroom. On arrival to the emergency room, he was found to have a very large sacral decubitus pressure ulcer. It was felt to be infected with areas of necrosis and purulent drainage. A CT of the abdomen and pelvis demonstrated a large sacral decubitus ulcer with exposed sacral and coccyx bone. No organizing fluid collections to suggest abscess. There was gas tracking along the myofascial planes in the buttocks/pelvic region felt to be likely due to a large defect and skin/subcutaneous tissue. No definitive osteomyelitis noted. There is subcutaneous edema throughout the soft tissues around the pelvis. There was bilateral pleural effusions, cardiomegaly, and a nonobstructive left renal calculus. Patient was taken to the OR for debridement late last night. He is currently in the intensive care unit and intubated to the mechanical ventilator. Ventilator settings are assist control, respiratory rate 24, tidal volume 500, FiO2 50%, PEEP of 5. These were adjusted based on the most recent ABG including a PaO2 of 384, pCO2 49, pH is 7.27. Post-op chest x-ray demonstrates the endotracheal tube above the omega. There is a orogastric tube coursing below the diaphragm. Chest x-ray shows cardiomegaly, pulmonary vasculature congestion, and bilateral pleural effusions with associated atelectasis. He is sedated on propofol at 30 mcg/kg/m. Fairly synchronous with mechanical ventilator. Heart rhythm is atrial fibrillation with rapid ventricular rate ranging from 140-180 bpm. Blood pressure was hypotensive and he was bolused 3 L normal saline. Then started on vasopressors with norepinephrine infusing at 0.1 mcg/kg/m. Blood pressure remains labile and fluctuates with extreme tachycardia. Amiodarone was started per protocol and he was bolused 150 mg and is currently infusing at 1 mg/m. A femoral central line catheter was established in OR. Patient appears septic, and is empirically covered with a combination of Zosyn and vancomycin. Pancultures are pending. C. diff EIA is pending. Most recent CBC shows a WBC count of 31.5, hemoglobin 9.1, hematocrit 28.8, platelets 351. CMV has a sodium 132, potassium 3.6, chloride 106, serum bicarb 19, BUN 19, creatinine 0.73, glucose 157. Magnesium is 1.4 and is being replaced. Lactic acid level was elevated at 4.2 and is down to 3.1. Prognosis is guarded and his condition is currently critical. He is being monitored in the intensive care unit. Review of Systems ROS unobtainable: due to endotracheal tube Past Medical History Past Medical History: Atrial Fibrillation, Atrial Flutter, COPD, GI Bleed, Hypertension, Vascular Disorder Additional Past Medical History / Comment(s): hx Bilateral lower leg edema- "retains water", History of Any Multi-Drug Resistant Organisms: MRSA Date of last positivie culture/infection: 8 YEARS AGO-treated in [facility] MDRO Source:: LEFT ABD Past Surgical History: Bowel Resection, EPS, Heart Catheterization Additional Past Surgical History / Comment(s): Bowel resection d/t a fistula, colonoscopy, EPS and cardioversion, Past Anesthesia/Blood Transfusion Reactions: No Reported Reaction Past Psychological History: Anxiety, Depression Additional Psychological History / Comment(s): Single but lives with his girlfriend. No children. 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 Is an active tobacco smoker. Relates he drinks alcohol but has no difficulties with alcohol. No current recreational drug use and has no history of injection drug use. Pet dog in the home which is a pitbull, it is a puppy. No experience. No international travel Smoking Status: Current every day smoker Past Alcohol Use History: Heavy Additional Past Alcohol Use History / Comment(s): Pt started smoking in 1974 and is smoking 5 cig per day. Past Drug Use History: None Reported - Past Family History Mother Family Medical History: Cancer Additional Family Medical History / Comment(s): breast cancer. Father Family Medical History: Cancer Additional Family Medical History / Comment(s): . Medications and Allergies Home Medications Medication Instructions Recorded Confirmed Type Atorvastatin [Lipitor] 20 mg PO DAILY #30 tab 04/29/23 07/07/23 Rx Furosemide [Lasix] 20 mg PO DAILY #14 tab 04/29/23 07/07/23 Rx Spironolactone [Aldactone] 25 mg PO DAILY #14 tab 04/29/23 07/07/23 Rx lisinopriL [Zestril] 5 mg PO HS #14 tab 04/30/23 07/07/23 Rx Metoprolol Tartrate [Lopressor] 12.5 mg PO BID 05/08/23 07/07/23 History Allergies Allergy/AdvReac Type Severity Reaction Status Date / Time No Known Allergies Allergy Verified 07/07/23 15:58 Physical Exam Vitals: Vital Signs Temp Pulse Resp BP Pulse Ox FiO2 07/08/23 00:19 50 07/07/23 23:00 160 H 0 L 141/78 07/07/23 22:50 168 H 24 141/78 07/07/23 22:40 156 H 11 L 141/78 07/07/23 22:30 149 H 8 L 141/78 07/07/23 22:24 50 07/07/23 22:21 149 H 7 L 07/07/23 21:26 100 07/07/23 20:17 100 07/07/23 19:39 118 H 18 98/74 93 L 07/07/23 18:00 101 H 18 86/58 96 07/07/23 17:45 102 H 18 108/95 96 07/07/23 17:30 103 H 18 109/67 95 07/07/23 17:15 122 H 18 93/68 94 L 07/07/23 17:00 104 H 18 80/59 94 L 07/07/23 16:45 98 18 76/55 92 L 07/07/23 16:30 101 H 18 71/52 91 L 07/07/23 16:15 99 18 101/77 90 L 07/07/23 16:00 115 H 18 89/31 91 L 07/07/23 15:45 112 H 18 88/74 92 L 07/07/23 15:30 103 H 18 93/51 91 L 07/07/23 15:15 109 H 18 95/79 91 L 07/07/23 15:00 115 H 16 82/53 92 L 07/07/23 14:45 122 H 18 82/53 90 L 07/07/23 14:30 115 H 18 89/60 91 L 07/07/23 14:15 124 H 18 76/57 92 L 07/07/23 14:00 112 H 18 78/55 92 L 07/07/23 12:35 97.6 F 113 H 18 83/37 91 L Intake and Output 07/07/23 07/07/23 07/08/23 14:59 22:59 06:59 Intake Total 3153.062 150 Output Total 390 70 Balance 2763.062 80 Intake: IV 2000 Intake, IV Titration 1153.062 150 Amount Sodium Chloride 0.9% 1, 150 150 000 ml @ 150 mls/hr IV . Q6H40M YVETTE Rx#:[id number] Sodium Chloride 0.9% 1, 1000 000 ml @ 999 mls/hr IV . Q1H1M ONE Rx#:[id number] propofoL 1,000 mg In 3.062 Empty Bag 1 bag @ 15 MCG/ KG/MIN 12.247 mls/hr IV . Q8H10M YVETTE Rx#:[id number] Output: Urine 140 70 Estimated Blood Loss 250 Other: Weight 136.078 kg 136.078 kg ABP, PAP, CO, CI - Last 8 Hours Arterial Blood Pressure 99/52 Arterial Blood Pressure 115/56 Arterial Blood Pressure 98/56 Arterial Blood Pressure 111/56 Arterial Blood Pressure 108/58 GENERAL EXAM: Sedated, 63-year-old white male, disheveled, and synchronous with the mechanical ventilator. HEAD: Normocephalic and atraumatic EYES: Normal reaction of pupils, equal size. NOSE: Clear with pink turbinates. THROAT: No erythema or exudates. NECK: No masses, no JVD. CHEST: No chest wall deformity. LUNGS: Equal air entry with diffuse bilateral ronch. Intubated to the mechanical ventilator. CVS: S1 and S2 normal with no audible murmur, irregular rhythm. tachycardic. No extra heart sounds ABDOMEN: No hepatosplenomegaly, active bowel sounds, no guarding or rigidity. SPINE: No scoliosis or deformity SKIN: Contact dermatitis noted underneath neck folds, breasts, and abdominal folds. Sacral decubitus debridement site is dressed with postoperative dressings. Bilateral lower extremity heel pressure injuries, stage II CENTRAL NERVOUS SYSTEM: Sedated on propofol, withdraws to pain in all 4 extremities. EXTREMITIES: Chronic venous stasis changes with mild to moderate nonpitting edema. No clubbing, or cyanosis. Peripheral pulses are intact. Results - Laboratory Findings CBC and BMP: 07/08/23 05:09 07/08/23 05:09 ABG ABG pH 7.27 (7.35-7.45) L 07/07/23 21:24 ABG pCO2 49 mmHg (35-45) H 07/07/23 21:24 ABG pO2 384 mmHg (83-108) H 07/07/23 21:24 ABG O2 Saturation 99.3 % (94-97) H 07/07/23 21:24 PT/INR, D-dimer PT 11.4 sec (10.0-12.5) 07/07/23 14:14 INR 1.1 (<1.2) 07/07/23 14:14 Abnormal lab findings: Abnormal Labs 07/07/23 07/07/23 07/07/23 14:14 14:14 14:14 WBC 24.1 H RBC 4.27 L Hgb 11.6 L D Hct 37.3 L RDW 17.2 H Neutrophils # (Manual) 23.60 H Lymphocytes # (Manual) 0.24 L APTT 21.1 L ABG pH ABG pCO2 ABG pO2 ABG Total CO2 ABG O2 Saturation Sodium 132 L Carbon Dioxide 21 L BUN 22 H Glucose POC Glucose (mg/dL) Plasma Lactic Acid Luis Calcium 7.6 L Magnesium Alkaline Phosphatase 127 H Total Protein 5.5 L Albumin 2.3 L Urine Protein Urine Blood Ur Leukocyte Esterase Urine WBC Urine Bacteria Hyaline Casts Urine Mucus Crossmatch 07/07/23 07/07/23 07/07/23 14:14 14:14 18:05 WBC RBC Hgb Hct RDW Neutrophils # (Manual) Lymphocytes # (Manual) APTT ABG pH ABG pCO2 ABG pO2 ABG Total CO2 ABG O2 Saturation Sodium Carbon Dioxide BUN Glucose POC Glucose (mg/dL) Plasma Lactic Acid Luis 4.2 H* 3.1 H* Calcium Magnesium Alkaline Phosphatase Total Protein Albumin Urine Protein 1+ H Urine Blood Small H Ur Leukocyte Esterase Large H Urine WBC 77 H Urine Bacteria Occasional H Hyaline Casts 16 H Urine Mucus Few H Crossmatch 07/07/23 07/07/23 07/07/23 20:48 21:12 21:24 WBC RBC Hgb Hct RDW Neutrophils # (Manual) Lymphocytes # (Manual) APTT ABG pH 7.26 L 7.27 L ABG pCO2 52 H 49 H ABG pO2 376 H 384 H ABG Total CO2 25 H ABG O2 Saturation 98.9 H 99.3 H Sodium Carbon Dioxide BUN Glucose POC Glucose (mg/dL) 117 H Plasma Lactic Acid Luis Calcium Magnesium Alkaline Phosphatase Total Protein Albumin Urine Protein Urine Blood Ur Leukocyte Esterase Urine WBC Urine Bacteria Hyaline Casts Urine Mucus Crossmatch 07/07/23 07/07/23 07/07/23 21:54 23:50 23:50 WBC 31.5 H RBC 3.32 L Hgb 9.1 L D Hct 28.8 L RDW 17.4 H Neutrophils # (Manual) 30.20 H Lymphocytes # (Manual) 0.95 L APTT ABG pH ABG pCO2 ABG pO2 ABG Total CO2 ABG O2 Saturation Sodium 132 L Carbon Dioxide 19 L BUN Glucose 157 H POC Glucose (mg/dL) Plasma Lactic Acid Luis Calcium 6.8 L Magnesium 1.4 L Alkaline Phosphatase Total Protein 4.2 L Albumin 1.6 L Urine Protein Urine Blood Ur Leukocyte Esterase Urine WBC Urine Bacteria Hyaline Casts Urine Mucus Crossmatch See Detail - Diagnostic Findings Chest x-ray: image reviewed Assessment and Plan Assessment: Infected large sacral decubitus ulcer with secondary sepsis status postoperative day #1 following large excisional debridement. Sepsis and septic shock, likely secondary to above Acute hypoxemic and hypercapnic respiratory failure, intubated to the mechanical ventilator, secondary to sepsis and suspected CHF exacerbation, unknown type. Chest x-ray shows cardiomegaly, pulmonary vascular congestion, and small to moderate bilateral pleural effusions. Paroxysmal Atrial fibrillation with rapid ventricular rate, currently on amiodarone infusion per protocol. Lactic acidosis, improving Acute blood loss anemia, expected outcome of surgery Diarrhea, check C. diff Possible UTI Contact dermatitis Chronic obstructive pulmonary disease, stable Chronic ongoing tobacco dependence History of alcoholism, last drink reportedly 6 weeks ago History of hypertension History of hyperlipidemia Obesity, with a BMI of 37.5 kg/m Plan: Patient's medications, labs, imaging were reviewed. Patient is currently intubated to the mechanical ventilator, ventilator changes made earlier by Dr. Fowler. May titrate down FiO2 as tolerated. Propofol for sedation. Add ventilator bundle. Endotracheal tube in adequate position above the omega. Blood pressure is labile despite multiple fluid boluses. His been started on norepinephrine which is infusing at 0.1 mcg/kg/m. Blood pressure remains labile with extreme tachycardia. Amiodarone IV protocol was started for rate control. Currently infusing at 1 mg/m. Cardiology was added to the case. Echocardiogram pending Patient is going to be receiving 1 unit PRBC. Patient is empirically covered on antibiotics, fine cultures are pending. Repeat labs in the morning. Electrolytes are being replaced. Add dietary consult for enteral nutrition. Protonix for GI prophylaxis. Patient's prognosis is guarded, and his condition is currently critical. He was monitored in the intensive care unit. Further recommendations are forthcoming. I have personally seen and examined the patient, performed the documentation and the assessment and plan as written. Number of minutes spent on the visit:20 Time with Patient: Greater than 30
--- NOTE | 2023-07-08 07:27 | XR ---
EXAMINATION TYPE: XR chest 1V DATE OF EXAM: 07/07/2023 COMPARISON: 07/08/2023 INDICATION: Line placement TECHNIQUE: Single frontal view of the chest is obtained. FINDINGS: The heart size is enlarged. The pulmonary vasculature is normal. Bibasilar infiltrates are present. Small effusions may be present. Endotracheal tube tip is located above the omega. Nasogastric tube transverses the thorax. Mediastin al tube is present IMPRESSION: 1. Small effusions with bibasilar infiltrates. 2. Lines and catheters discussed above
[2023-07-08] MEDS: IPRATROPIUM-ALBUTEROL 3 ML NEB INHALATION SCH ×5 (07:52→23:29)
--- NOTE | 2023-07-08 08:34 | XR ---
EXAM: XR chest 1V portable CLINICAL INDICATION:Male, 63 years old with history of Tube placement; [facility] COMPARISON: 07/07/2023 TECHNIQUE: Chest single view. FINDINGS: Lines/tubes/devices: EKG leads over the chest. ET tube tip about 4 cm above the omega. NG/OG tube tr averses below the diaphragm, extending into the left abdomen with the tip beyond the field of view. Cardiomediastinum: Cardiac silhouette appears enlarged and stable. Stable mediastinal silhouette. Vasculature: Pulmonary vascular congestion persists. Lungs/pleura: Hazy opacities throughout both lungs and more consolidative opacities towards the lung bases with obs curation of the costophrenic angles, similar to previous. No visualized pneumothorax on this semiupri ght view. Bones/soft tissues: Bony thorax appears grossly unchanged as seen. Degenerative changes of the spine and shoulders noted. Regional soft tissues appear unremarkable. IMPRESSION: 1. Lines and tubes in place, as above. 2. Stable cardiopulmonary status. Cardiomegaly with vascular congestion, bilateral lung opacities li celsa edema and atelectasis with small to moderate pleural effusions.
[2023-07-08] MEDS: ATORVASTATIN 20 MG TAB PO SCH (08:42)
[2023-07-08] MEDS: CHLORHEXIDINE GLUCONATE 15 ML CUP MUCOUS MEM SCH ×2 (08:42→20:55)
[2023-07-08] MEDS: PANTOPRAZOLE 40 MG/10 ML VIAL IV SCH (08:42)
[2023-07-08] MEDS: ENOXAPARIN 40 MG/0.4 ML SYRINGE SQ SCH (08:42)
[2023-07-08] MEDS: fentaNYL (PF) 50 MCG/ML 2 ML AMP IVP PRN ×3 (08:43→17:05)
--- NOTE | 2023-07-08 08:56 | P.CRDCN ---
History of Present Illness Consult date: 07/08/23 Reason for Consult (text): Elevated troponin History of present illness: The patient is a 63-year-old male with multiple comorbid conditions who presented to the emergency room with hypotension and elevated heart rate. He was found to be septic, likely secondary to infected lumbar and sacral decubitus ulcers. He has an extensive cardiac history and has been completely immobile over the last several months. 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 Cardiology has been consulted for elevated troponin, however the patient also developed A. fib with RVR. The patient underwent debridement of sacral wounds. He is currently intubated on vasopressors for septic shock. DIAGNOSTICS: EKG shows A. fib with RVR Telemetry readings show A. fib with heart rates in the 150s to 160s Chest x-ray shows no acute cardiopulmonary disease Computed tomography scan of the abdomen and pelvis shows large sacral decubitus ulcer with exposed sacrum and coccyx, as well as bilateral pleural effusions Lab data: WBC 25.3, hemoglobin 10.0, hematocrit 31.6, platelet 333, sodium 135, potassium 3.8, BUN 19, creatinine 0.74, lactic acid 6.8, magnesium 1.7, AST 31, ALT 13 REVIEW OF SYSTEMS: Unable to assess. Patient is sedated on ventilator PHYSICAL EXAMINATION: This is a 63-year-old obese male. Currently sedated on v entilator. HEENT: Head is atraumatic, normocephalic. Pupils are equal, round. There is no jugular venous distention. No carotid bruit is heard. CHEST EXAMINATION: Lungs are diminished to auscultation. No chest wall tenderness is noted on palpation or with deep breathing. HEART EXAMINATION: Irregular rate and rhythm. Notably tachycardic. ABDOMEN: Soft, nontender. Bowel sounds are heard. No organomegaly noted. EXTREMITIES: 2+ peripheral pulses, moderate peripheral edema. NEUROLOGIC EXAMINATION: Patient is currently sedated on ventilator. FINAL ASSESSMENT AND PLAN: Septicemia/septic shock Infected lumbar and sacral decubitus ulcers, status post debridement Elevated troponins, secondary to septic shock Acute hypoxic respiratory failure A. fib with RVR Anemia COPD PLAN: Increase amiodarone to 1 mg infusion Continue supportive treatment Awaiting echocardiogram results Further recommendations as per clinical course I am dictating on behalf of Dr Carlos Howe's history/physical and a ssessment/plan. Past Medical History Past Medical History: Atrial Fibrillation, Atrial Flutter, COPD, GI Bleed, Hypertension, Vascular Disorder Additional Past Medical History / Comment(s): hx Bilateral lower leg edema- "retains water", History of Any Multi-Drug Resistant Organisms: MRSA Date of last positivie culture/infection: 8 YEARS AGO-treated in [facility] MDRO Source:: LEFT ABD Past Surgical History: Bowel Resection, EPS, Heart Catheterization Additional Past Surgical History / Comment(s): Bowel resection d/t a fistula, colonoscopy, EPS and cardioversion, Past Anesthesia/Blood Transfusion Reactions: No Reported Reaction Past Psychological History: Anxiety, Depression Additional Psychological History / Comment(s): Single but lives with his girlfriend. No children. 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 Is an active tobacco smoker. Relates he drinks alcohol but has no difficulties with alcohol. No current recreational drug use and has no history of injection drug use. Pet dog in the home which is a pitbull, it is a puppy. No experience. No international travel Smoking Status: Current every day smoker Past Alcohol Use History: Heavy Additional Past Alcohol Use History / Comment(s): Pt started smoking in 1974 and is smoking 5 cig per day. Past Drug Use History: None Reported - Past Family History Mother Family Medical History: Cancer Additional Family Medical History / Comment(s): breast cancer. Father Family Medical History: Cancer Additional Family Medical History / Comment(s): . Medications and Allergies Home Medications Medication Instructions Recorded Confirmed Type Atorvastatin [Lipitor] 20 mg PO DAILY #30 tab 04/29/23 07/07/23 Rx Furosemide [Lasix] 20 mg PO DAILY #14 tab 04/29/23 07/07/23 Rx Spironolactone [Aldactone] 25 mg PO DAILY #14 tab 04/29/23 07/07/23 Rx lisinopriL [Zestril] 5 mg PO HS #14 tab 04/30/23 07/07/23 Rx Metoprolol Tartrate [Lopressor] 12.5 mg PO BID 05/08/23 07/07/23 History Allergies Allergy/AdvReac Type Severity Reaction Status Date / Time No Known Allergies Allergy Verified 07/07/23 15:58 Physical Exam Vitals: Vital Signs Temp Pulse Pulse Resp BP Pulse Ox FiO2 07/08/23 07:50 50 07/08/23 07:10 168 H 12 57/45 98 07/08/23 07:00 161 H 24 158/97 97 07/08/23 06:50 170 H 24 07/08/23 06:40 158 H 24 158/97 99 07/08/23 06:30 151 H 24 158/97 100 07/08/23 06:20 142 H 24 158/97 99 07/08/23 06:10 149 H 24 158/97 100 07/08/23 06:00 158 H 24 100 07/08/23 05:50 170 H 24 133/120 99 07/08/23 05:40 152 H 24 133/120 99 07/08/23 05:30 161 H 24 133/120 98 07/08/23 05:20 170 H 19 133/120 99 07/08/23 05:10 160 H 24 133/120 100 07/08/23 05:00 154 H 24 106/84 99 07/08/23 04:55 97.9 F 149 H 24 144/61 07/08/23 04:50 161 H 24 106/84 99 07/08/23 04:40 151 H 0 L 106/84 99 07/08/23 04:30 149 H 0 L 106/84 99 07/08/23 04:20 154 H 0 L 106/84 99 07/08/23 04:10 174 H 0 L 106/84 98 07/08/23 04:00 156 H 163 H 24 115/75 100 50 07/08/23 03:50 165 H 24 115/75 100 07/08/23 03:40 117 H 24 115/75 100 07/08/23 03:30 151 H 24 115/75 100 07/08/23 03:20 142 H 24 115/75 100 50 07/08/23 03:10 151 H 24 115/75 100 07/08/23 03:00 163 H 24 146/80 100 07/08/23 02:50 160 H 24 146/80 100 07/08/23 02:46 97.0 F L 149 H 24 135/66 100 07/08/23 02:41 96.9 F L 161 H 24 102/55 100 07/08/23 02:40 158 H 24 146/80 99 07/08/23 02:30 163 H 24 146/80 100 07/08/23 02:29 96.8 F L 170 H 24 136/69 100 07/08/23 02:26 96.9 F L 154 H 24 128/61 100 07/08/23 02:20 147 H 24 146/80 100 07/08/23 02:10 161 H 0 L 146/80 100 07/08/23 02:00 96.8 F L 158 H 24 139/107 100 07/08/23 01:50 146 H 24 139/107 100 07/08/23 01:40 140 H 24 139/107 100 07/08/23 01:30 152 H 24 139/107 100 07/08/23 01:20 151 H 24 139/107 100 07/08/23 01:10 147 H 24 139/107 100 07/08/23 01:00 135 H 0 L 125/80 100 07/08/23 00:50 154 H 0 L 125/80 100 07/08/23 00:40 149 H 0 L 125/80 100 07/08/23 00:30 158 H 0 L 114/82 07/08/23 00:20 125 H 0 L 114/82 100 07/08/23 00:19 50 07/08/23 00:10 124 H 0 L 114/82 100 07/08/23 00:00 94 F L 120 H 160 H 24 104/47 100 50 07/07/23 23:50 93 24 104/47 100 07/07/23 23:40 124 H 24 104/47 95 07/07/23 23:30 123 H 24 139/109 07/07/23 23:20 161 H 0 L 139/109 07/07/23 23:10 172 H 19 139/109 07/07/23 23:02 146 H 0 L 141/78 07/07/23 23:00 160 H 0 L 141/78 07/07/23 22:50 168 H 24 141/78 07/07/23 22:40 156 H 11 L 141/78 07/07/23 22:30 149 H 8 L 141/78 07/07/23 22:24 50 07/07/23 22:21 149 H 7 L 07/07/23 21:51 160 H 14 90 07/07/23 21:26 100 07/07/23 20:17 100 07/07/23 19:39 118 H 18 98/74 93 L 07/07/23 18:00 101 H 18 86/58 96 07/07/23 17:45 102 H 18 108/95 96 07/07/23 17:30 103 H 18 109/67 95 07/07/23 17:15 122 H 18 93/68 94 L 07/07/23 17:00 104 H 18 80/59 94 L 07/07/23 16:45 98 18 76/55 92 L 07/07/23 16:30 101 H 18 71/52 91 L 07/07/23 16:15 99 18 101/77 90 L 07/07/23 16:00 115 H 18 89/31 91 L 07/07/23 15:45 112 H 18 88/74 92 L 07/07/23 15:30 103 H 18 93/51 91 L 07/07/23 15:15 109 H 18 95/79 91 L 07/07/23 15:00 115 H 16 82/53 92 L 07/07/23 14:45 122 H 18 82/53 90 L 07/07/23 14:30 115 H 18 89/60 91 L 07/07/23 14:15 124 H 18 76/57 92 L 07/07/23 14:00 112 H 18 78/55 92 L 07/07/23 12:35 97.6 F 113 H 18 83/37 91 L Intake and Output 07/07/23 07/08/23 07/08/23 22:59 06:59 14:59 Intake Total 3165.990 2363.692 400 Output Total 390 455 100 Balance 2775.990 1908.692 300 Intake: IV 2000 Intake, IV Titration 7598.762 9107.692 400 Amount Magnesium Sulfate-D5w Pmx 200 1 gm In Dextrose/Water 1 100ml.bag @ 100 mls/hr IVPB Q1H [facility] Rx#: [id number] Norepinephrine 4 mg In 508 Sodium Chloride 0.9% 250 ml @ 0.05 MCG/KG/MIN 25. 923 mls/hr IV .Q9H48M [facility] Rx#:[id number] Sodium Chloride 0.9% 1, 150 1200 300 000 ml @ 20 mls/hr IV . Q24H [facility] Rx#:[id number] Sodium Chloride 0.9% 1, 1000 000 ml @ 999 mls/hr IV . Q1H1M [facility] Rx#:[id number] propofoL 1,000 mg In 15.990 170.692 100 Empty Bag 1 bag @ 15 MCG/ KG/MIN 12.247 mls/hr IV . Q8H10M [facility] Rx#:[id number] Blood Product 285 Rc Pheresis 2 As3 Unit 285 [id number] Output: Urine 140 455 100 Estimated Blood Loss 250 Other: Voiding Method Indwelling Catheter Indwelling Catheter Weight 140.5 kg ABP, PAP, CO, CI - Last 8 Hours Arterial Blood Pressure 117/53 Arterial Blood Pressure 82/52 Arterial Blood Pressure 50/44 Arterial Blood Pressure 87/61 Arterial Blood Pressure 123/60 Arterial Blood Pressure 113/64 Arterial Blood Pressure 140/69 Arterial Blood Pressure 159/71 Arterial Blood Pressure 111/56 Arterial Blood Pressure 77/38 Arterial Blood Pressure 127/55 Arterial Blood Pressure 78/42 Arterial Blood Pressure 131/66 Arterial Blood Pressure 143/66 Arterial Blood Pressure 114/63 Arterial Blood Pressure 151/63 Arterial Blood Pressure 138/66 Arterial Blood Pressure 139/61 Arterial Blood Pressure 128/64 Arterial Blood Pressure 88/53 Arterial Blood Pressure 115/60 Arterial Blood Pressure 102/72 Arterial Blood Pressure 131/73 Arterial Blood Pressure 149/73 Arterial Blood Pressure 128/67 Arterial Blood Pressure 129/63 Arterial Blood Pressure 146/67 Arterial Blood Pressure 82/49 Arterial Blood Pressure 126/63 Arterial Blood Pressure 155/75 Arterial Blood Pressure 94/54 Arterial Blood Pressure 134/69 Arterial Blood Pressure 161/83 Arterial Blood Pressure 133/64 Arterial Blood Pressure 108/59 Arterial Blood Pressure 13/13 Arterial Blood Pressure 128/67 Arterial Blood Pressure 157/81 Arterial Blood Pressure 135/73 Results 07/08/23 05:09 07/08/23 05:09 Cardiac Enzymes 07/07/23 07/07/23 Range/Units 14:14 23:50 AST 28 31 (17-59) U/L Coagulation 07/07/23 07/08/23 Range/Units 14:14 05:09 PT 11.4 11.6 (10.0-12.5) sec APTT 21.1 L (22.0-30.0) sec CBC 07/07/23 07/07/23 07/08/23 Range/Units 14:14 23:50 05:09 WBC 24.1 H 31.5 H 25.3 H (3.8-10.6) k/uL RBC 4.27 L 3.32 L 3.66 L (4.30-5.90) m/uL Hgb 11.6 L D 9.1 L D 10.0 L (13.0-17.5) gm/dL Hct 37.3 L 28.8 L 31.6 L (39.0-53.0) % Plt Count 356 351 333 (150-450) k/uL Comprehensive Metabolic Panel 07/07/23 07/07/23 07/08/23 Range/Units 14:14 23:50 05:09 Sodium 132 L 132 L 135 L (137-145) mmol/L Potassium 4.2 3.6 3.8 (3.5-5.1) mmol/L Chloride 99 106 106 (98-107) mmol/L Carbon Dioxide 21 L 19 L 17 L (22-30) mmol/L BUN 22 H 19 19 (9-20) mg/dL Creatinine 0.88 0.73 0.74 (0.66-1.25) mg/dL Glucose 89 157 H 141 H (74-99) mg/dL Calcium 7.6 L 6.8 L 6.8 L (8.4-10.2) mg/dL AST 28 31 (17-59) U/L ALT 16 13 (4-49) U/L Alkaline Phosphatase 127 H 105 (38-126) U/L Total Protein 5.5 L 4.2 L (6.3-8.2) g/dL Albumin 2.3 L 1.6 L (3.5-5.0) g/dL Current Medications Generic Name Dose Route Start Last Admin Trade Name Freq PRN Reason Stop Dose Admin Acetaminophen 650 mg 07/07/23 17:53 Acetaminophen Tab 325 Mg Tab PO Q6HR PRN Mild Pain or Fever > 100.5 Hydrocodone Bitart/Acetaminophen 1 each 07/07/23 17:53 Hydrocodone/Apap 5-325mg 1 Each Tab PO Q4HR PRN Moderate Pain (Scale 4 to 6) Albuterol/Ipratropium 3 ml 07/08/23 08:00 07/08/23 07:52 Ipratropium-Albuterol 3 Ml Neb INHALATION Not Given RT-Q4H [facility] Alprazolam 0.25 mg 07/07/23 17:53 Alprazolam 0.25 Mg Tab PO Q6HR PRN Anxiety Atorvastatin Calcium 20 mg 07/08/23 09:00 Atorvastatin 20 Mg Tab PO DAILY [facility] Chlorhexidine Gluconate 15 ml 07/08/23 09:00 Chlorhexidine Gluconate 15 Ml Cup MUCOUS MEM BID [facility] Enoxaparin Sodium 40 mg 07/08/23 09:00 Enoxaparin 40 Mg/0.4 Ml Syringe SQ DAILY [facility] Fentanyl Citrate 50 mcg 07/08/23 08:08 Fentanyl (Pf) 50 Mcg/Ml 2 Ml Amp IVP Q4HR PRN Pain/Discomfort Hydromorphone HCl 1 mg 07/07/23 17:53 Hydromorphone 1 Mg/Ml 1 Ml Syringe IVP Q3HR PRN Severe Pain (Scale 7 to 10) Anidulafungin 100 mg/ Sodium 130 mls @ 84 mls/hr 07/08/23 21:00 Chloride IVPB HS [facility] Protocol Piperacillin Sod/Tazobactam 100 mls @ 25 mls/hr 07/07/23 21:00 07/08/23 00:38 Sod 3.375 gm/ Sodium Chloride IVPB 25 mls/hr Q8HR [facility] Administration Protocol Propofol 1,000 mg/ IV Solution 100 mls @ 12.247 mls/hr 07/07/23 21:30 07/08/23 08:18 IV 40 mcg/kg/min .Q8H10M [facility] 32.659 mls/hr Administration Protocol 15 MCG/KG/MIN Sodium Chloride 1,000 mls @ 20 mls/hr 07/07/23 21:30 07/07/23 22:39 Saline 0.9% IV 150 mls/hr .Q24H [facility] Administration Amiodarone HCl 450 mg/ 250 mls @ 16.667 mls/hr 07/07/23 21:30 07/08/23 03:32 Dextrose/Water IV 07/08/23 15:29 0.5 mg/min .Q15H [facility] 16.667 mls/hr Administration Protocol 0.5 MG/MIN Vancomycin HCl 2,000 mg/ 500 mls @ 167 mls/hr 07/08/23 02:00 07/08/23 01:09 Sodium Chloride IVPB 167 mls/hr Q12H [facility] Administration Norepinephrine Bitartrate 4 mg 254 mls @ 25.923 mls/hr 07/07/23 22:00 07/08/23 08:21 / Sodium Chloride IV 0.22 mcg/kg/min .Q9H48M [facility] 114.061 mls/hr Administration Protocol 0.05 MCG/KG/MIN Vasopressin 60 unit/ Sodium 153 mls @ 4.59 mls/hr 07/08/23 00:00 07/08/23 05:52 Chloride IV 0.03 units/min .Q24H [facility] 4.59 mls/hr Administration Protocol 0.03 UNITS/MIN Lactobacillus Acidophilus 1 each 07/07/23 21:00 07/08/23 07:10 Lactobacillus Acidophilus/Pect 1 Each Capsule PO 1 each BID-W/MEALS [facility] Administration Melatonin 3 mg 07/07/23 17:53 Melatonin 3 Mg Tablet PO HS PRN Insomnia Miscellaneous Information 1 each 07/07/23 21:50 Potassium Replacement Protocol 1 Each Misc MISCELLANE DAILY PRN Per Protocol Miscellaneous Information 1 each 07/08/23 00:29 Magnesium Replacement Protocol 1 Each Misc MISCELLANE DAILY PRN Per Protocol Protocol Naloxone HCl 0.2 mg 07/07/23 17:53 Naloxone 0.4 Mg/Ml 1 Ml Vial IV Q2M PRN Opioid Reversal Nicotine 1 patch 07/08/23 09:00 Nicotine 14mg/24hr Patch TRANSDERM DAILY [facility] Nicotine Polacrilex 2 mg 07/07/23 17:53 Nicotine Gum (Polacrilex) 2 Mg Gum BUCCAL Q2HR PRN Nicotine Cravings Ondansetron HCl 4 mg 07/07/23 17:53 Ondansetron 4 Mg/2 Ml Vial IVP Q8HR PRN Nausea And Vomiting Pantoprazole Sodium 40 mg 07/08/23 09:00 Pantoprazole 40 Mg/10 Ml Vial IV DAILY [facility] Petrolatum 1 applic 07/07/23 18:25 Zinc Oxide Paste (Z-Guard) 1 Applic Applic TOPICAL BID PRN Wound Healing Thiamine HCl 100 mg 07/09/23 09:00 Thiamine 100 Mg Tab PO DAILY [facility] Intake and Output 07/07/23 07/08/23 07/08/23 22:59 06:59 14:59 Intake Total 3165.990 2363.692 400 Output Total 390 455 100 Balance 2775.990 1908.692 300 Intake: IV 2000 Intake, IV Titration 9336.135 9068.692 400 Amount Magnesium Sulfate-D5w Pmx 200 1 gm In Dextrose/Water 1 100ml.bag @ 100 mls/hr IVPB Q1H [facility] Rx#: [id number] Norepinephrine 4 mg In 508 Sodium Chloride 0.9% 250 ml @ 0.05 MCG/KG/MIN 25. 923 mls/hr IV .Q9H48M [facility] Rx#:[id number] Sodium Chloride 0.9% 1, 150 1200 300 000 ml @ 20 mls/hr IV . Q24H [facility] Rx#:[id number] Sodium Chloride 0.9% 1, 1000 000 ml @ 999 mls/hr IV . Q1H1M [facility] Rx#:[id number] propofoL 1,000 mg In 15.990 170.692 100 Empty Bag 1 bag @ 15 MCG/ KG/MIN 12.247 mls/hr IV . Q8H10M [facility] Rx#:[id number] Blood Product 285 Rc Pheresis 2 As3 Unit 285 [id number] Output: Urine 140 455 100 Estimated Blood Loss 250 Other: Voiding Method Indwelling Catheter Indwelling Catheter Weight 140.5 kg 07/08/23 05:09 07/08/23 05:09
[2023-07-08] MEDS: SODIUM CHLORIDE 0.9% 1,000 ML IV SCH ×3 (09:26→23:46)
[2023-07-08] MEDS: NYSTATIN 100,000 UNIT/GM POWD 15 GM TOPICAL SCH ×3 (09:31→20:56)
[2023-07-08] MEDS: NICOTINE 14MG/24HR PATCH TRANSDERM SCH (09:37)
[2023-07-08] MEDS: AMIODARONE 360 MG in DEXTROSE 5% IN WATER 200 ML IV ONE ×4 (09:44→14:00)
--- NOTE | 2023-07-08 10:43 | CA ---
Transthoracic Echo Report Name: Tomas Corral Age: 63 Gender: M : 1960 Exam Date: 07/08/2023 08:12 Exam Location: [place] [facility] Ht (in): 75 Wt (lb): 300 Ordering Physician: Kady Moon DO Attending/Referring Phys: [id number], [employer] Janine Campuzano RDCS Procedure CPT: Indications: chf Cardiac Hx: Technical Quality: Very technically difficult study Contrast 1: Definity Total Dose (mL): 4 Contrast 2: Total Dose (mL): MEASUREMENTS (Male / Female) Normal Values 2D ECHO LV Diastolic Diameter PLAX 4.9 cm 4.2 - 5.9 / 3.9 - 5.3 cm LV Systolic Diameter PLAX 4.0 cm IVS Diastolic Thickness 1.5 cm 0.6 - 1.0 / 0.6 - 0.9 cm LVPW Diastolic Thickness 1.5 cm 0.6 - 1.0 / 0.6 - 0.9 cm LV Relative Wall Thickness 0.6 RV Internal Dim ED PLAX 4.4 cm LA Systolic Diameter LX 3.9 cm 3.0 - 4.0 / 2.7 - 3.8 cm LV Diastolic Volume MOD BP 81.2 cm??? 67 - 155 / 56 - 104 cm??? LV Systolic Volume MOD BP 47.3 cm??? 22 - 58 / 19 - 49 cm??? LV Ejection Fraction MOD BP 41.7 % >= 55 % LV Cardiac Index MOD BP 1908.2 cm???/min???m??? LV Diastolic Volume MOD 4C 71.9 cm??? LV Systolic Volume MOD 4C 44.7 cm??? LV Ejection Fraction MOD 4C 37.8 % LV Cardiac Index MOD 4C 1531.1 cm???/min???m??? LV Diastolic Length 4C 7.7 cm LV Systolic Length 4C 7.7 cm LV Diastolic Volume MOD 2C 79.2 cm??? LV Systolic Volume MOD 2C 50.6 cm??? LV Ejection Fraction MOD 2C 36.1 % LV Cardiac Index MOD 2C 1614.1 cm???/min???m??? LV Diastolic Length 2C 9.1 cm LV Systolic Length 2C 7.6 cm M-MODE Aortic Root Diameter MM 3.1 cm AV Cusp Separation MM 1.3 cm DOPPLER AV Peak Velocity 147.4 cm/s AV Peak Gradient 8.7 mmHg MV Area PHT 6.8 cm??? MV Deceleration Time 91.1 ms TR Peak Velocity 332.9 cm/s TR Peak Gradient 44.3 mmHg Right Ventricular Systolic Press 48.9 mmHg FINDINGS Left Ventricle Left ventricular ejection fraction is estimated at 30-35 %. Patient is tachycardic and ejection fraction assessment may be underestimated. Left ventricular cavity size normal. Moderate concentric left ventricular hypertrophy. Moderately reduced global left ventricular systolic function. Right Ventricle Severe right ventricular dilatation. Moderate pulmonary hypertension. Right Atrium Right atrium not well visualized. Left Atrium Left atrium not well visualized. Mitral Valve Mitral annular calcification. Mitral valve not well visualized. Aortic Valve Aortic valve not well visualized. Tricuspid Valve Tricuspid valve not well visualized. Mild tricuspid regurgitation. Pulmonic Valve Pulmonic valve not well visualized. Pericardium No pericardial effusion. Aorta Normal size aortic root and proximal ascending aorta. CONCLUSIONS Normal LV size. Mild global decrease in contractility. Patient is tachycardic should probably reassess LV function when heart rate slows down. Right ventricle is enlarged. There is moderate pulmonary hypertension. Mitral valve calcification and aortic valve sclerosis but not well visualized. Increased right-sided pressures. No pericardial effusion Previewed by: Dr. Manpreet Lou MD (Electronically Signed) Final Date: 08 July 2023 10:42
--- NOTE | 2023-07-08 13:33 | P.PN ---
Subjective Progress Note Date: 07/08/23 (delayed charting seen at 0915) Patient is a 63-year-old male with permanent atrial fibrillation, COPD, hypertension, congestive heart failure per patient, and chronic lower extremity weakness who presented to the ER due to increased congestion. On arrival to the ER his vital signs were remarkable for a blood pressure of 83/37 and a pulse of 113. Laboratory analysis included CBC, coags, CMP, CK, and lactic acid which were remarkable for white blood cell count 24.1, hemoglobin 11.6, sodium 132, and lactic acid of 4.2. On arrival to the emergency department the patient was covered in feces and was desheveled. He was started on vancomycin, and Rocephin. He was seen by pulmonary and Eraxis was added. He received 2 L of IV fluids but remained hypotensive. I contacted general surgery who came in to see the patient and took him to the OR. He underwent an urgent wide excisional debrided of necrotic sacral decubitus ulcer. He was subsequently taken to the ICU he was intubated. He did require multiple vasopressors to be added including levo and days ago. He then developed atrial fibrillation with rapid ventricular response and amiodarone was initiated. Cardiology consult was placed. Echocardiogram showed ejection fraction 30-35% but may be underestimated due to tachycardia. CT abdomen and pelvis did confirm a large ulcer with exposed bone. Patient seen and examined at bedside. Is sedated and unresponsive on the vent. Overnight events as outlined above. Discussed with nursing we did do a trial of fentanyl the patient did not have any decrease in his heart rate. I did suggest that we go up on vasopressin and limit levothyroid due to his sustained tachycardia. Vital signs reviewed General: Ill-appearing, moderate distress, older than stated age Cardiovascular: And S2 tachycardic, no murmur, positive posterior tibial pulse bilateral, Lungs: Course bs Bilateral, no rhonchi, no rales , no accessory muscle use on vent Abdominal: soft, nontender to palpation, no guarding, Ext: +gross muscle atrophy, 1+ edema b/l lower extremities, + flexion contract ure b/l LE Neuro: Sedated on vent Psych: Sedated on vent Assessment/Plan: Infected lumbar and sacral decubitus ulcer with severe sepsis Functional quadralplegia with b/l le flexion contracture B/l Heel stage II pressure ulcures Severe Protein calorie malnutrition Class II obesity with BMI 37.5 - Eraxis 100 mg daily daily #2 - Zosyn 3.375 g IV piggyback every 8 hours day #2 - Vancomycin IV piggyback daily #2, monitor creatinine and a trough for signs of toxicity. - Norepinephrine and vasopressin currently running - pulmonary consult reviewed continue with current antibiotics -Await infectious disease recommendations Acute exacerbation of systolic CHF with EF 30-35% (me be under estimated due to tachycardia) Permanent atrial fibrillation with rapid ventricular response HTN - IVF off -Cardiology consultation reviewed: Increased amiodarone, await echo -Amiodarone infusion Lactic adiosis, resolved Diarrhea, resolved Imaging: CT abdomen and pelvis demonstrated a large sacral decubitus ulcer with exposed sacrum and coccyx, no organized fluid collection to suggest sinus with a gastric wall myofascial planes in the buttock and pelvic, subcutaneous edema throughout the tissues, cardiomegaly with bilateral pleural effusions, nonobstructing left renal stone Echo as described above. Data Review: Laboratory from today include CBC, coags, basic metabolic profile, an ABG which are remarkable for white blood cell count 25.3, hemoglobin 10, sodium 135, carbon dioxide 17. DVT prophylaxis: Lovenox Poor overall prognosis Anticipated discharge date: Pending Clinical Course Anticipated discharge place: Pending Clinical Course This dictation was prepared using [employer] voice recognition software. Though every attempt is made to correct errors during dictation some may still exist. Objective - Vital Signs Vital signs: Vital Signs Temp 37 F L 07/08/23 08:00 Pulse 144 H 07/08/23 13:00 Resp 7 L 07/08/23 13:00 BP 119/87 07/08/23 13:00 Pulse Ox 99 07/08/23 13:00 FiO2 50 07/08/23 11:00 Intake & Output 07/07/23 07/08/23 07/08/23 18:59 06:59 18:59 Intake Total 5529.682 1708.033 Output Total 845 310 Balance 4684.682 1398.033 Weight 136.078 kg 140.5 kg 140.5 kg Intake: IV 2000 Intake, IV Titration 3244.682 1708.033 Amount Amiodarone 360 mg In 99 Dextrose 5% in Water 200 ml @ 1 MG/MIN 33.333 mls/ hr IV .Q6H [facility] Rx#: [id number] Magnesium Sulfate-D5w Pmx 200 1 gm In Dextrose/Water 1 100ml.bag @ 100 mls/hr IVPB Q1H [facility] Rx#: [id number] Norepinephrine 4 mg In 508 442.891 Sodium Chloride 0.9% 250 ml @ 0.05 MCG/KG/MIN 25. 923 mls/hr IV .Q9H48M [facility] Rx#:[id number] Piperacillin-Tazobactam 3 100 .375 gm In Sodium Chloride 0.9% 100 ml @ 25 mls/hr IVPB Q8HR [facility] Rx# :[id number] Sodium Chloride 0.9% 1, 1350 850 000 ml @ 100 mls/hr IV . Q10H [facility] Rx#:[id number] Sodium Chloride 0.9% 1, 1000 000 ml @ 999 mls/hr IV . Q1H1M [facility] Rx#:[id number] Vasopressin 60 unit In 16.142 Sodium Chloride 0.9% 150 ml @ 0.03 UNITS/MIN 4.59 mls/hr IV .Q24H [facility] Rx#: [id number] propofoL 1,000 mg In 186.682 200 Empty Bag 1 bag @ 15 MCG/ KG/MIN 12.247 mls/hr IV . Q8H10M [facility] Rx#:[id number] Blood Product 285 Rc Pheresis 2 As3 Unit 285 [id number] Output: Urine 595 310 Estimated Blood Loss 250 Other: Voiding Method Indwelling Catheter Indwelling Catheter ABP, PAP, CO, CI - Last Documented Arterial Blood Pressure 139/58 - Labs CBC & Chem 7: 07/08/23 05:09 07/08/23 05:09 Labs: Abnormal Lab Results - Last 24 Hours (Table) 07/07/23 07/07/23 07/07/23 Range/Units 14:14 14:14 14:14 WBC 24.1 H (3.8-10.6) k/uL RBC 4.27 L (4.30-5.90) m/uL Hgb 11.6 L D (13.0-17.5) gm/dL Hct 37.3 L (39.0-53.0) % RDW 17.2 H (11.5-15.5) % Neutrophils # (1.3-7.7) k/uL Neutrophils # (Manual) 23.60 H (1.3-7.7) k/uL Lymphocytes # (Manual) 0.24 L (1.0-4.8) k/uL APTT 21.1 L (22.0-30.0) sec ABG pH (7.35-7.45) ABG pCO2 (35-45) mmHg ABG pO2 (83-108) mmHg ABG HCO3 (21-25) mmol/L ABG Total CO2 (19-24) mmol/L ABG O2 Saturation (94-97) % Sodium 132 L (137-145) mmol/L Carbon Dioxide 21 L (22-30) mmol/L BUN 22 H (9-20) mg/dL Glucose (74-99) mg/dL POC Glucose (mg/dL) (70-110) mg/dL Plasma Lactic Acid Luis (0.7-2.0) mmol/L Calcium 7.6 L (8.4-10.2) mg/dL Phosphorus (2.5-4.5) mg/dL Magnesium (1.6-2.3) mg/dL Alkaline Phosphatase 127 H (38-126) U/L Total Protein 5.5 L (6.3-8.2) g/dL Albumin 2.3 L (3.5-5.0) g/dL Urine Protein (Negative) Urine Blood (Negative) Ur Leukocyte Esterase (Negative) Urine RBC (0-5) /hpf Urine WBC (0-5) /hpf Urine WBC Clumps (None) /hpf Uric Acid Crystals (None) /hpf Urine Bacteria (None) /hpf Hyaline Casts (0-2) /lpf Urine Mucus (None) /hpf Crossmatch 07/07/23 07/07/23 07/07/23 Range/Units 14:14 14:14 18:05 WBC (3.8-10.6) k/uL RBC (4.30-5.90) m/uL Hgb (13.0-17.5) gm/dL Hct (39.0-53.0) % RDW (11.5-15.5) % Neutrophils # (1.3-7.7) k/uL Neutrophils # (Manual) (1.3-7.7) k/uL Lymphocytes # (Manual) (1.0-4.8) k/uL APTT (22.0-30.0) sec ABG pH (7.35-7.45) ABG pCO2 (35-45) mmHg ABG pO2 (83-108) mmHg ABG HCO3 (21-25) mmol/L ABG Total CO2 (19-24) mmol/L ABG O2 Saturation (94-97) % Sodium (137-145) mmol/L Carbon Dioxide (22-30) mmol/L BUN (9-20) mg/dL Glucose (74-99) mg/dL POC Glucose (mg/dL) (70-110) mg/dL Plasma Lactic Acid Luis 4.2 H* 3.1 H* (0.7-2.0) mmol/L Calcium (8.4-10.2) mg/dL Phosphorus (2.5-4.5) mg/dL Magnesium (1.6-2.3) mg/dL Alkaline Phosphatase (38-126) U/L Total Protein (6.3-8.2) g/dL Albumin (3.5-5.0) g/dL Urine Protein 1+ H (Negative) Urine Blood Small H (Negative) Ur Leukocyte Esterase Large H (Negative) Urine RBC (0-5) /hpf Urine WBC 77 H (0-5) /hpf Urine WBC Clumps (None) /hpf Uric Acid Crystals (None) /hpf Urine Bacteria Occasional H (None) /hpf Hyaline Casts 16 H (0-2) /lpf Urine Mucus Few H (None) /hpf Crossmatch 07/07/23 07/07/23 07/07/23 Range/Units 20:48 21:12 21:24 WBC (3.8-10.6) k/uL RBC (4.30-5.90) m/uL Hgb (13.0-17.5) gm/dL Hct (39.0-53.0) % RDW (11.5-15.5) % Neutrophils # (1.3-7.7) k/uL Neutrophils # (Manual) (1.3-7.7) k/uL Lymphocytes # (Manual) (1.0-4.8) k/uL APTT (22.0-30.0) sec ABG pH 7.26 L 7.27 L (7.35-7.45) ABG pCO2 52 H 49 H (35-45) mmHg ABG pO2 376 H 384 H (83-108) mmHg ABG HCO3 (21-25) mmol/L ABG Total CO2 25 H (19-24) mmol/L ABG O2 Saturation 98.9 H 99.3 H (94-97) % Sodium (137-145) mmol/L Carbon Dioxide (22-30) mmol/L BUN (9-20) mg/dL Glucose (74-99) mg/dL POC Glucose (mg/dL) 117 H (70-110) mg/dL Plasma Lactic Acid Luis (0.7-2.0) mmol/L Calcium (8.4-10.2) mg/dL Phosphorus (2.5-4.5) mg/dL Magnesium (1.6-2.3) mg/dL Alkaline Phosphatase (38-126) U/L Total Protein (6.3-8.2) g/dL Albumin (3.5-5.0) g/dL Urine Protein (Negative) Urine Blood (Negative) Ur Leukocyte Esterase (Negative) Urine RBC (0-5) /hpf Urine WBC (0-5) /hpf Urine WBC Clumps (None) /hpf Uric Acid Crystals (None) /hpf Urine Bacteria (None) /hpf Hyaline Casts (0-2) /lpf Urine Mucus (None) /hpf Crossmatch 07/07/23 07/07/23 07/07/23 Range/Units 21:54 23:50 23:50 WBC 31.5 H (3.8-10.6) k/uL RBC 3.32 L (4.30-5.90) m/uL Hgb 9.1 L D (13.0-17.5) gm/dL Hct 28.8 L (39.0-53.0) % RDW 17.4 H (11.5-15.5) % Neutrophils # (1.3-7.7) k/uL Neutrophils # (Manual) 30.20 H (1.3-7.7) k/uL Lymphocytes # (Manual) 0.95 L (1.0-4.8) k/uL APTT (22.0-30.0) sec ABG pH (7.35-7.45) ABG pCO2 (35-45) mmHg ABG pO2 (83-108) mmHg ABG HCO3 (21-25) mmol/L ABG Total CO2 (19-24) mmol/L ABG O2 Saturation (94-97) % Sodium 132 L (137-145) mmol/L Carbon Dioxide 19 L (22-30) mmol/L BUN (9-20) mg/dL Glucose 157 H (74-99) mg/dL POC Glucose (mg/dL) (70-110) mg/dL Plasma Lactic Acid Luis (0.7-2.0) mmol/L Calcium 6.8 L (8.4-10.2) mg/dL Phosphorus (2.5-4.5) mg/dL Magnesium 1.4 L (1.6-2.3) mg/dL Alkaline Phosphatase (38-126) U/L Total Protein 4.2 L (6.3-8.2) g/dL Albumin 1.6 L (3.5-5.0) g/dL Urine Protein (Negative) Urine Blood (Negative) Ur Leukocyte Esterase (Negative) Urine RBC (0-5) /hpf Urine WBC (0-5) /hpf Urine WBC Clumps (None) /hpf Uric Acid Crystals (None) /hpf Urine Bacteria (None) /hpf Hyaline Casts (0-2) /lpf Urine Mucus (None) /hpf Crossmatch See Detail 07/08/23 07/08/23 07/08/23 Range/Units 01:53 05:03 05:09 WBC 25.3 H (3.8-10.6) k/uL RBC 3.66 L (4.30-5.90) m/uL Hgb 10.0 L (13.0-17.5) gm/dL Hct 31.6 L (39.0-53.0) % RDW 17.0 H (11.5-15.5) % Neutrophils # 23.3 H (1.3-7.7) k/uL Neutrophils # (Manual) (1.3-7.7) k/uL Lymphocytes # (Manual) (1.0-4.8) k/uL APTT (22.0-30.0) sec ABG pH (7.35-7.45) ABG pCO2 (35-45) mmHg ABG pO2 (83-108) mmHg ABG HCO3 (21-25) mmol/L ABG Total CO2 (19-24) mmol/L ABG O2 Saturation (94-97) % Sodium (137-145) mmol/L Carbon Dioxide (22-30) mmol/L BUN (9-20) mg/dL Glucose (74-99) mg/dL POC Glucose (mg/dL) 158 H (70-110) mg/dL Plasma Lactic Acid Luis (0.7-2.0) mmol/L Calcium (8.4-10.2) mg/dL Phosphorus (2.5-4.5) mg/dL Magnesium (1.6-2.3) mg/dL Alkaline Phosphatase (38-126) U/L Total Protein (6.3-8.2) g/dL Albumin (3.5-5.0) g/dL Urine Protein Trace H (Negative) Urine Blood Trace H (Negative) Ur Leukocyte Esterase Large H (Negative) Urine RBC 6 H (0-5) /hpf Urine WBC >182 H (0-5) /hpf Urine WBC Clumps Rare H (None) /hpf Uric Acid Crystals Few H (None) /hpf Urine Bacteria Occasional H (None) /hpf Hyaline Casts 17 H (0-2) /lpf Urine Mucus Rare H (None) /hpf Crossmatch 07/08/23 07/08/23 Range/Units 05:09 05:43 WBC (3.8-10.6) k/uL RBC (4.30-5.90) m/uL Hgb (13.0-17.5) gm/dL Hct (39.0-53.0) % RDW (11.5-15.5) % Neutrophils # (1.3-7.7) k/uL Neutrophils # (Manual) (1.3-7.7) k/uL Lymphocytes # (Manual) (1.0-4.8) k/uL APTT (22.0-30.0) sec ABG pH (7.35-7.45) ABG pCO2 34 L (35-45) mmHg ABG pO2 124 H (83-108) mmHg ABG HCO3 20 L (21-25) mmol/L ABG Total CO2 (19-24) mmol/L ABG O2 Saturation 98.2 H (94-97) % Sodium 135 L (137-145) mmol/L Carbon Dioxide 17 L (22-30) mmol/L BUN (9-20) mg/dL Glucose 141 H (74-99) mg/dL POC Glucose (mg/dL) (70-110) mg/dL Plasma Lactic Acid Luis (0.7-2.0) mmol/L Calcium 6.8 L (8.4-10.2) mg/dL Phosphorus 4.7 H (2.5-4.5) mg/dL Magnesium (1.6-2.3) mg/dL Alkaline Phosphatase (38-126) U/L Total Protein (6.3-8.2) g/dL Albumin (3.5-5.0) g/dL Urine Protein (Negative) Urine Blood (Negative) Ur Leukocyte Esterase (Negative) Urine RBC (0-5) /hpf Urine WBC (0-5) /hpf Urine WBC Clumps (None) /hpf Uric Acid Crystals (None) /hpf Urine Bacteria (None) /hpf Hyaline Casts (0-2) /lpf Urine Mucus (None) /hpf Crossmatch Microbiology - Last 24 Hours (Table) 07/08/23 00:30 Gram Stain - Preliminary Sputum
--- NOTE | 2023-07-08 15:54 | P.PN ---
Subjective Progress Note Date: 07/08/23 CHIEF COMPLAINT: Sacral decubitus ulcer HISTORY OF PRESENT ILLNESS: Patient postop day #1 status post wide excisional debridement of necrotic sacral decubitus ulcer. Patient currently remains in the ICU and intubated. He is on multiple vasopressors. He developed A. fib with RVR and is currently on amiodarone. Followed by cardiology. Afebrile. Tachycardic. WBC is down from 31-25.3 creatinine 0.7 for epigastric 1.6 PHYSICAL EXAM: VITAL SIGNS: Reviewed. GENERAL: Intubated and sedated ABDOMEN: Soft. Nondistended. Nontender. ASSESSMENT: 1. Necrotic sacral decubitus ulcer status post debridement 2. Sepsis PLAN: -Continue antibiotics -Continue local wound care -Continue ICU management -Patient will eventually need diverting colostomy when medically stable Physician Bilingual Trainer note has been reviewed by physician. Signing provider agrees with the documented findings, assessment, and plan of care. Objective - Vital Signs Vital signs: Vital Signs Temp 97.9 F 07/08/23 04:55 Pulse 168 H 07/08/23 07:10 Resp 12 07/08/23 07:10 BP 57/45 07/08/23 07:10 Pulse Ox 98 07/08/23 07:10 FiO2 50 07/08/23 07:50 Intake & Output 07/07/23 07/08/23 07/08/23 18:59 06:59 18:59 Intake Total 5529.682 400 Output Total 845 100 Balance 4684.682 300 Weight 136.078 kg 140.5 kg Intake: IV 2000 Intake, IV Titration 3244.682 400 Amount Magnesium Sulfate-D5w Pmx 200 1 gm In Dextrose/Water 1 100ml.bag @ 100 mls/hr IVPB Q1H [facility] Rx#: [id number] Norepinephrine 4 mg In 508 Sodium Chloride 0.9% 250 ml @ 0.05 MCG/KG/MIN 25. 923 mls/hr IV .Q9H48M [facility] Rx#:[id number] Sodium Chloride 0.9% 1, 1350 300 000 ml @ 20 mls/hr IV . Q24H [facility] Rx#:[id number] Sodium Chloride 0.9% 1, 1000 000 ml @ 999 mls/hr IV . Q1H1M [facility] Rx#:[id number] propofoL 1,000 mg In 186.682 100 Empty Bag 1 bag @ 15 MCG/ KG/MIN 12.247 mls/hr IV . Q8H10M [facility] Rx#:[id number] Blood Product 285 Rc Pheresis 2 As3 Unit 285 [id number] Output: Urine 595 100 Estimated Blood Loss 250 Other: Voiding Method Indwelling Catheter ABP, PAP, CO, CI - Last Documented Arterial Blood Pressure 117/53 - Labs CBC & Chem 7: 07/08/23 05:09 07/08/23 05:09 Labs: Abnormal Lab Results - Last 24 Hours (Table) 07/07/23 07/07/23 07/07/23 Range/Units 14:14 14:14 14:14 WBC 24.1 H (3.8-10.6) k/uL RBC 4.27 L (4.30-5.90) m/uL Hgb 11.6 L D (13.0-17.5) gm/dL Hct 37.3 L (39.0-53.0) % RDW 17.2 H (11.5-15.5) % Neutrophils # (1.3-7.7) k/uL Neutrophils # (Manual) 23.60 H (1.3-7.7) k/uL Lymphocytes # (Manual) 0.24 L (1.0-4.8) k/uL APTT 21.1 L (22.0-30.0) sec ABG pH (7.35-7.45) ABG pCO2 (35-45) mmHg ABG pO2 (83-108) mmHg ABG HCO3 (21-25) mmol/L ABG Total CO2 (19-24) mmol/L ABG O2 Saturation (94-97) % Sodium 132 L (137-145) mmol/L Carbon Dioxide 21 L (22-30) mmol/L BUN 22 H (9-20) mg/dL Glucose (74-99) mg/dL POC Glucose (mg/dL) (70-110) mg/dL Plasma Lactic Acid Luis (0.7-2.0) mmol/L Calcium 7.6 L (8.4-10.2) mg/dL Phosphorus (2.5-4.5) mg/dL Magnesium (1.6-2.3) mg/dL Alkaline Phosphatase 127 H (38-126) U/L Total Protein 5.5 L (6.3-8.2) g/dL Albumin 2.3 L (3.5-5.0) g/dL Urine Protein (Negative) Urine Blood (Negative) Ur Leukocyte Esterase (Negative) Urine RBC (0-5) /hpf Urine WBC (0-5) /hpf Urine WBC Clumps (None) /hpf Uric Acid Crystals (None) /hpf Urine Bacteria (None) /hpf Hyaline Casts (0-2) /lpf Urine Mucus (None) /hpf Crossmatch 07/07/23 07/07/23 07/07/23 Range/Units 14:14 14:14 18:05 WBC (3.8-10.6) k/uL RBC (4.30-5.90) m/uL Hgb (13.0-17.5) gm/dL Hct (39.0-53.0) % RDW (11.5-15.5) % Neutrophils # (1.3-7.7) k/uL Neutrophils # (Manual) (1.3-7.7) k/uL Lymphocytes # (Manual) (1.0-4.8) k/uL APTT (22.0-30.0) sec ABG pH (7.35-7.45) ABG pCO2 (35-45) mmHg ABG pO2 (83-108) mmHg ABG HCO3 (21-25) mmol/L ABG Total CO2 (19-24) mmol/L ABG O2 Saturation (94-97) % Sodium (137-145) mmol/L Carbon Dioxide (22-30) mmol/L BUN (9-20) mg/dL Glucose (74-99) mg/dL POC Glucose (mg/dL) (70-110) mg/dL Plasma Lactic Acid Luis 4.2 H* 3.1 H* (0.7-2.0) mmol/L Calcium (8.4-10.2) mg/dL Phosphorus (2.5-4.5) mg/dL Magnesium (1.6-2.3) mg/dL Alkaline Phosphatase (38-126) U/L Total Protein (6.3-8.2) g/dL Albumin (3.5-5.0) g/dL Urine Protein 1+ H (Negative) Urine Blood Small H (Negative) Ur Leukocyte Esterase Large H (Negative) Urine RBC (0-5) /hpf Urine WBC 77 H (0-5) /hpf Urine WBC Clumps (None) /hpf Uric Acid Crystals (None) /hpf Urine Bacteria Occasional H (None) /hpf Hyaline Casts 16 H (0-2) /lpf Urine Mucus Few H (None) /hpf Crossmatch 07/07/23 07/07/23 07/07/23 Range/Units 20:48 21:12 21:24 WBC (3.8-10.6) k/uL RBC (4.30-5.90) m/uL Hgb (13.0-17.5) gm/dL Hct (39.0-53.0) % RDW (11.5-15.5) % Neutrophils # (1.3-7.7) k/uL Neutrophils # (Manual) (1.3-7.7) k/uL Lymphocytes # (Manual) (1.0-4.8) k/uL APTT (22.0-30.0) sec ABG pH 7.26 L 7.27 L (7.35-7.45) ABG pCO2 52 H 49 H (35-45) mmHg ABG pO2 376 H 384 H (83-108) mmHg ABG HCO3 (21-25) mmol/L ABG Total CO2 25 H (19-24) mmol/L ABG O2 Saturation 98.9 H 99.3 H (94-97) % Sodium (137-145) mmol/L Carbon Dioxide (22-30) mmol/L BUN (9-20) mg/dL Glucose (74-99) mg/dL POC Glucose (mg/dL) 117 H (70-110) mg/dL Plasma Lactic Acid Luis (0.7-2.0) mmol/L Calcium (8.4-10.2) mg/dL Phosphorus (2.5-4.5) mg/dL Magnesium (1.6-2.3) mg/dL Alkaline Phosphatase (38-126) U/L Total Protein (6.3-8.2) g/dL Albumin (3.5-5.0) g/dL Urine Protein (Negative) Urine Blood (Negative) Ur Leukocyte Esterase (Negative) Urine RBC (0-5) /hpf Urine WBC (0-5) /hpf Urine WBC Clumps (None) /hpf Uric Acid Crystals (None) /hpf Urine Bacteria (None) /hpf Hyaline Casts (0-2) /lpf Urine Mucus (None) /hpf Crossmatch 07/07/23 07/07/23 07/07/23 Range/Units 21:54 23:50 23:50 WBC 31.5 H (3.8-10.6) k/uL RBC 3.32 L (4.30-5.90) m/uL Hgb 9.1 L D (13.0-17.5) gm/dL Hct 28.8 L (39.0-53.0) % RDW 17.4 H (11.5-15.5) % Neutrophils # (1.3-7.7) k/uL Neutrophils # (Manual) 30.20 H (1.3-7.7) k/uL Lymphocytes # (Manual) 0.95 L (1.0-4.8) k/uL APTT (22.0-30.0) sec ABG pH (7.35-7.45) ABG pCO2 (35-45) mmHg ABG pO2 (83-108) mmHg ABG HCO3 (21-25) mmol/L ABG Total CO2 (19-24) mmol/L ABG O2 Saturation (94-97) % Sodium 132 L (137-145) mmol/L Carbon Dioxide 19 L (22-30) mmol/L BUN (9-20) mg/dL Glucose 157 H (74-99) mg/dL POC Glucose (mg/dL) (70-110) mg/dL Plasma Lactic Acid Luis (0.7-2.0) mmol/L Calcium 6.8 L (8.4-10.2) mg/dL Phosphorus (2.5-4.5) mg/dL Magnesium 1.4 L (1.6-2.3) mg/dL Alkaline Phosphatase (38-126) U/L Total Protein 4.2 L (6.3-8.2) g/dL Albumin 1.6 L (3.5-5.0) g/dL Urine Protein (Negative) Urine Blood (Negative) Ur Leukocyte Esterase (Negative) Urine RBC (0-5) /hpf Urine WBC (0-5) /hpf Urine WBC Clumps (None) /hpf Uric Acid Crystals (None) /hpf Urine Bacteria (None) /hpf Hyaline Casts (0-2) /lpf Urine Mucus (None) /hpf Crossmatch See Detail 07/08/23 07/08/23 07/08/23 Range/Units 01:53 05:03 05:09 WBC 25.3 H (3.8-10.6) k/uL RBC 3.66 L (4.30-5.90) m/uL Hgb 10.0 L (13.0-17.5) gm/dL Hct 31.6 L (39.0-53.0) % RDW 17.0 H (11.5-15.5) % Neutrophils # 23.3 H (1.3-7.7) k/uL Neutrophils # (Manual) (1.3-7.7) k/uL Lymphocytes # (Manual) (1.0-4.8) k/uL APTT (22.0-30.0) sec ABG pH (7.35-7.45) ABG pCO2 (35-45) mmHg ABG pO2 (83-108) mmHg ABG HCO3 (21-25) mmol/L ABG Total CO2 (19-24) mmol/L ABG O2 Saturation (94-97) % Sodium (137-145) mmol/L Carbon Dioxide (22-30) mmol/L BUN (9-20) mg/dL Glucose (74-99) mg/dL POC Glucose (mg/dL) 158 H (70-110) mg/dL Plasma Lactic Acid Luis (0.7-2.0) mmol/L Calcium (8.4-10.2) mg/dL Phosphorus (2.5-4.5) mg/dL Magnesium (1.6-2.3) mg/dL Alkaline Phosphatase (38-126) U/L Total Protein (6.3-8.2) g/dL Albumin (3.5-5.0) g/dL Urine Protein Trace H (Negative) Urine Blood Trace H (Negative) Ur Leukocyte Esterase Large H (Negative) Urine RBC 6 H (0-5) /hpf Urine WBC >182 H (0-5) /hpf Urine WBC Clumps Rare H (None) /hpf Uric Acid Crystals Few H (None) /hpf Urine Bacteria Occasional H (None) /hpf Hyaline Casts 17 H (0-2) /lpf Urine Mucus Rare H (None) /hpf Crossmatch 07/08/23 07/08/23 Range/Units 05:09 05:43 WBC (3.8-10.6) k/uL RBC (4.30-5.90) m/uL Hgb (13.0-17.5) gm/dL Hct (39.0-53.0) % RDW (11.5-15.5) % Neutrophils # (1.3-7.7) k/uL Neutrophils # (Manual) (1.3-7.7) k/uL Lymphocytes # (Manual) (1.0-4.8) k/uL APTT (22.0-30.0) sec ABG pH (7.35-7.45) ABG pCO2 34 L (35-45) mmHg ABG pO2 124 H (83-108) mmHg ABG HCO3 20 L (21-25) mmol/L ABG Total CO2 (19-24) mmol/L ABG O2 Saturation 98.2 H (94-97) % Sodium 135 L (137-145) mmol/L Carbon Dioxide 17 L (22-30) mmol/L BUN (9-20) mg/dL Glucose 141 H (74-99) mg/dL POC Glucose (mg/dL) (70-110) mg/dL Plasma Lactic Acid Luis (0.7-2.0) mmol/L Calcium 6.8 L (8.4-10.2) mg/dL Phosphorus 4.7 H (2.5-4.5) mg/dL Magnesium (1.6-2.3) mg/dL Alkaline Phosphatase (38-126) U/L Total Protein (6.3-8.2) g/dL Albumin (3.5-5.0) g/dL Urine Protein (Negative) Urine Blood (Negative) Ur Leukocyte Esterase (Negative) Urine RBC (0-5) /hpf Urine WBC (0-5) /hpf Urine WBC Clumps (None) /hpf Uric Acid Crystals (None) /hpf Urine Bacteria (None) /hpf Hyaline Casts (0-2) /lpf Urine Mucus (None) /hpf Crossmatch
[2023-07-08] MEDS ORDERED: FUROSEMIDE 10 MG/ML 4 ML VIAL IV STA (16:18)
[2023-07-08 18:13] LABS: Glucose,Whole Blood 102 mg/dL (70-110)
[2023-07-08] MEDS ORDERED: AMIODARONE 360 MG in DEXTROSE 5% IN WATER 200 ML IV ONE ×2 (19:00)
--- NOTE | 2023-07-08 20:00 | P.CONS ---
History of Present Illness - Reason for Consult Consult date: 07/08/23 Infected decubiti Requesting physician: Kady Moon - Chief Complaint Diarrhea and weakness x few days - History of Present Illness Patient is a 63-year-old male with a past medical history negative for hypertension COPD atrial flutter atrial fibrillation patient was brought into the hospital yesterday for extreme weakness and apparently the patient is having diarrhea patient was unable to get up and go to the bathroom. Admit the patient has been laying in his stools patient on presentation to the hospital was afebrile with vomiting no temperature tachycardic hypotensive and hypoxic patient was evaluated by the ER physician patient did have a CT of abdominal pelvis large sacral pressure ulcer with exposed sacrum and coccyx bones no organizing fluid collection subcutaneous edema patient was taken to the OR the patient is status post wide excisional debridement of the necrotic sacral pressure ulcer down to the wound deep culture obtained patient was started on vancomycin and Zosyn and admitted to the ICU infectious disease was consulted for further management of antibiotic therapy patient is currently intubated on the vent and unable to provide any history no family members at the bedside most information has been gathered from review the chart talking to nursing staff the patient is currently on pressor support FiO2 is 50% patient did have elevated white count 24,000 on admission which went up to 31.5 is 25.3 today kidney function has been normal the results are normal urine has been positive cultures currently pending chest x-ray cardiomegaly with vascular congestion bilateral lung opacities likely edema Review of Systems Positive points has been mentioned in HPI complete review could not be obtained because patient intubated on the vent Past Medical History Past Medical History: Atrial Fibrillation, Atrial Flutter, COPD, GI Bleed, Hypertension, Vascular Disorder Additional Past Medical History / Comment(s): hx Bilateral lower leg edema- "retains water", 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 No children. 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 Is an active tobacco smoker. Relates he drinks alcohol but has no difficulties with alcohol. No current recreational drug use and has no history of injection drug use. Pet dog in the home which is a pitbull, it is a puppy. No experience. No international travel Smoking Status: Current every day smoker Past Alcohol Use History: Heavy Additional Past Alcohol Use History / Comment(s): Pt started smoking in 1974 and is smoking 5 cig per day. Past Drug Use History: None Reported - Past Family History Mother Family Medical History: Cancer Additional Family Medical History / Comment(s): breast cancer. Father Family Medical History: Cancer Additional Family Medical History / Comment(s): . Medications and Allergies Home Medications Medication Instructions Recorded Confirmed Type Atorvastatin [Lipitor] 20 mg PO DAILY #30 tab 04/29/23 07/07/23 Rx Furosemide [Lasix] 20 mg PO DAILY #14 tab 04/29/23 07/07/23 Rx Spironolactone [Aldactone] 25 mg PO DAILY #14 tab 04/29/23 07/07/23 Rx lisinopriL [Zestril] 5 mg PO HS #14 tab 04/30/23 07/07/23 Rx Metoprolol Tartrate [Lopressor] 12.5 mg PO BID 05/08/23 07/07/23 History Allergies Allergy/AdvReac Type Severity Reaction Status Date / Time No Known Allergies Allergy Verified 07/07/23 15:58 Physical Exam Vitals: Vital Signs Temp Pulse Pulse Resp BP Pulse Ox FiO2 07/08/23 10:00 172 H 0 L 101/82 100 07/08/23 09:50 147 H 26 H 100 07/08/23 09:40 156 H 25 H 100 07/08/23 09:30 156 H 25 H 100 07/08/23 09:20 186 H 27 H 100 07/08/23 09:10 172 H 29 H 99 07/08/23 09:00 165 H 30 H 100 07/08/23 08:50 163 H 26 H 100 07/08/23 08:40 161 H 26 H 100 07/08/23 08:30 163 H 25 H 100 07/08/23 08:20 152 H 29 H 100 07/08/23 08:10 163 H 22 100 07/08/23 08:00 37 F L 146 H 22 100 07/08/23 07:50 158 H 10 L 100 50 07/08/23 07:10 168 H 12 57/45 98 07/08/23 07:00 161 H 24 158/97 97 07/08/23 06:50 170 H 24 07/08/23 06:40 158 H 24 158/97 99 07/08/23 06:30 151 H 24 158/97 100 07/08/23 06:20 142 H 24 158/97 99 07/08/23 06:10 149 H 24 158/97 100 07/08/23 06:00 158 H 24 100 07/08/23 05:50 170 H 24 133/120 99 07/08/23 05:40 152 H 24 133/120 99 07/08/23 05:30 161 H 24 133/120 98 07/08/23 05:20 170 H 19 133/120 99 07/08/23 05:10 160 H 24 133/120 100 07/08/23 05:00 154 H 24 106/84 99 07/08/23 04:55 97.9 F 149 H 24 144/61 07/08/23 04:50 161 H 24 106/84 99 07/08/23 04:40 151 H 0 L 106/84 99 07/08/23 04:30 149 H 0 L 106/84 99 07/08/23 04:20 154 H 0 L 106/84 99 07/08/23 04:10 174 H 0 L 106/84 98 07/08/23 04:00 156 H 163 H 24 115/75 100 50 07/08/23 03:50 165 H 24 115/75 100 07/08/23 03:40 117 H 24 115/75 100 07/08/23 03:30 151 H 24 115/75 100 07/08/23 03:20 142 H 24 115/75 100 50 07/08/23 03:10 151 H 24 115/75 100 07/08/23 03:00 163 H 24 146/80 100 07/08/23 02:50 160 H 24 146/80 100 07/08/23 02:46 97.0 F L 149 H 24 135/66 100 07/08/23 02:41 96.9 F L 161 H 24 102/55 100 07/08/23 02:40 158 H 24 146/80 99 07/08/23 02:30 163 H 24 146/80 100 07/08/23 02:29 96.8 F L 170 H 24 136/69 100 07/08/23 02:26 96.9 F L 154 H 24 128/61 100 07/08/23 02:20 147 H 24 146/80 100 07/08/23 02:10 161 H 0 L 146/80 100 07/08/23 02:00 96.8 F L 158 H 24 139/107 100 07/08/23 01:50 146 H 24 139/107 100 07/08/23 01:40 140 H 24 139/107 100 07/08/23 01:30 152 H 24 139/107 100 07/08/23 01:20 151 H 24 139/107 100 07/08/23 01:10 147 H 24 139/107 100 07/08/23 01:00 135 H 0 L 125/80 100 07/08/23 00:50 154 H 0 L 125/80 100 07/08/23 00:40 149 H 0 L 125/80 100 07/08/23 00:30 158 H 0 L 114/82 07/08/23 00:20 125 H 0 L 114/82 100 07/08/23 00:19 50 07/08/23 00:10 124 H 0 L 114/82 100 07/08/23 00:00 94 F L 120 H 160 H 24 104/47 100 50 07/07/23 23:50 93 24 104/47 100 07/07/23 23:40 124 H 24 104/47 95 07/07/23 23:30 123 H 24 139/109 07/07/23 23:20 161 H 0 L 139/109 07/07/23 23:10 172 H 19 139/109 07/07/23 23:02 146 H 0 L 141/78 07/07/23 23:00 160 H 0 L 141/78 07/07/23 22:50 168 H 24 141/78 07/07/23 22:40 156 H 11 L 141/78 07/07/23 22:30 149 H 8 L 141/78 07/07/23 22:24 50 07/07/23 22:21 149 H 7 L 07/07/23 21:51 160 H 14 90 07/07/23 21:26 100 07/07/23 20:17 100 07/07/23 19:39 118 H 18 98/74 93 L 07/07/23 18:00 101 H 18 86/58 96 07/07/23 17:45 102 H 18 108/95 96 07/07/23 17:30 103 H 18 109/67 95 07/07/23 17:15 122 H 18 93/68 94 L 07/07/23 17:00 104 H 18 80/59 94 L 07/07/23 16:45 98 18 76/55 92 L 07/07/23 16:30 101 H 18 71/52 91 L 07/07/23 16:15 99 18 101/77 90 L 07/07/23 16:00 115 H 18 89/31 91 L 07/07/23 15:45 112 H 18 88/74 92 L 07/07/23 15:30 103 H 18 93/51 91 L 07/07/23 15:15 109 H 18 95/79 91 L 07/07/23 15:00 115 H 16 82/53 92 L 07/07/23 14:45 122 H 18 82/53 90 L 07/07/23 14:30 115 H 18 89/60 91 L 07/07/23 14:15 124 H 18 76/57 92 L 07/07/23 14:00 112 H 18 78/55 92 L 07/07/23 12:35 97.6 F 113 H 18 83/37 91 L Intake and Output 07/07/23 07/08/23 07/08/23 22:59 06:59 14:59 Intake Total 3165.990 2363.692 861.947 Output Total 390 455 180 Balance 2775.990 1908.692 681.947 Intake: IV 2000 Intake, IV Titration 0712.396 9304.692 861.947 Amount Magnesium Sulfate-D5w Pmx 200 1 gm In Dextrose/Water 1 100ml.bag @ 100 mls/hr IVPB Q1H [facility] Rx#: [id number] Norepinephrine 4 mg In 508 195.805 Sodium Chloride 0.9% 250 ml @ 0.05 MCG/KG/MIN 25. 923 mls/hr IV .Q9H48M [facility] Rx#:[id number] Sodium Chloride 0.9% 1, 150 1200 550 000 ml @ 100 mls/hr IV . Q10H [facility] Rx#:[id number] Sodium Chloride 0.9% 1, 1000 000 ml @ 999 mls/hr IV . Q1H1M ONE Rx#:[id number] Vasopressin 60 unit In 16.142 Sodium Chloride 0.9% 150 ml @ 0.03 UNITS/MIN 4.59 mls/hr IV .Q24H [facility] Rx#: [id number] propofoL 1,000 mg In 15.990 170.692 100 Empty Bag 1 bag @ 15 MCG/ KG/MIN 12.247 mls/hr IV . Q8H10M [facility] Rx#:[id number] Blood Product 285 Rc Pheresis 2 As3 Unit 285 [id number] Output: Urine 140 455 180 Estimated Blood Loss 250 Other: Voiding Method Indwelling Catheter Indwelling Catheter Weight 140.5 kg ABP, PAP, CO, CI - Last 8 Hours Arterial Blood Pressure 84/44 Arterial Blood Pressure 140/56 Arterial Blood Pressure 129/51 Arterial Blood Pressure 136/53 Arterial Blood Pressure 102/43 Arterial Blood Pressure 136/51 Arterial Blood Pressure 102/47 Arterial Blood Pressure 110/46 Arterial Blood Pressure 130/55 Arterial Blood Pressure 135/51 Arterial Blood Pressure 110/46 Arterial Blood Pressure 119/53 Arterial Blood Pressure 126/59 Arterial Blood Pressure 130/55 Arterial Blood Pressure 117/53 Arterial Blood Pressure 82/52 Arterial Blood Pressure 50/44 Arterial Blood Pressure 87/61 Arterial Blood Pressure 123/60 Arterial Blood Pressure 113/64 Arterial Blood Pressure 140/69 Arterial Blood Pressure 159/71 Arterial Blood Pressure 111/56 Arterial Blood Pressure 77/38 Arterial Blood Pressure 127/55 Arterial Blood Pressure 78/42 Arterial Blood Pressure 131/66 Arterial Blood Pressure 143/66 Arterial Blood Pressure 114/63 Arterial Blood Pressure 151/63 Arterial Blood Pressure 138/66 Arterial Blood Pressure 139/61 Arterial Blood Pressure 128/64 Arterial Blood Pressure 88/53 Arterial Blood Pressure 115/60 Arterial Blood Pressure 102/72 Arterial Blood Pressure 131/73 Arterial Blood Pressure 149/73 Arterial Blood Pressure 128/67 Arterial Blood Pressure 129/63 Arterial Blood Pressure 146/67 Arterial Blood Pressure 82/49 GENERAL DESCRIPTION: Middle-age male intubated on the vent HEENT: Shows Pallor , no scleral icterus. Oral mucous membrane is dry. NECK: Trachea central, no thyromegaly. LUNGS: Unlabored breathing. Decreased breath sounds at the base HEART: S1, S2, regular rate and rhythm. ABDOMEN: Soft, no tenderness , EXTREMITIES: No edema of feet. SKIN: Large pressure ulcer to the sacrum and gluteal area with some bleeding surrounding redness NEUROLOGICAL: The patient is sedated on the vent Results CBC & Chem 7: 07/13/23 05:00 07/13/23 05:00 Labs: Abnormal Lab Results - Last 24 Hours (Table) 07/07/23 07/07/23 07/07/23 Range/Units 14:14 14:14 14:14 WBC 24.1 H (3.8-10.6) k/uL RBC 4.27 L (4.30-5.90) m/uL Hgb 11.6 L D (13.0-17.5) gm/dL Hct 37.3 L (39.0-53.0) % RDW 17.2 H (11.5-15.5) % Neutrophils # (1.3-7.7) k/uL Neutrophils # (Manual) 23.60 H (1.3-7.7) k/uL Lymphocytes # (Manual) 0.24 L (1.0-4.8) k/uL APTT 21.1 L (22.0-30.0) sec ABG pH (7.35-7.45) ABG pCO2 (35-45) mmHg ABG pO2 (83-108) mmHg ABG HCO3 (21-25) mmol/L ABG Total CO2 (19-24) mmol/L ABG O2 Saturation (94-97) % Sodium 132 L (137-145) mmol/L Carbon Dioxide 21 L (22-30) mmol/L BUN 22 H (9-20) mg/dL Glucose (74-99) mg/dL POC Glucose (mg/dL) (70-110) mg/dL Plasma Lactic Acid Luis (0.7-2.0) mmol/L Calcium 7.6 L (8.4-10.2) mg/dL Phosphorus (2.5-4.5) mg/dL Magnesium (1.6-2.3) mg/dL Alkaline Phosphatase 127 H (38-126) U/L Total Protein 5.5 L (6.3-8.2) g/dL Albumin 2.3 L (3.5-5.0) g/dL Urine Protein (Negative) Urine Blood (Negative) Ur Leukocyte Esterase (Negative) Urine RBC (0-5) /hpf Urine WBC (0-5) /hpf Urine WBC Clumps (None) /hpf Uric Acid Crystals (None) /hpf Urine Bacteria (None) /hpf Hyaline Casts (0-2) /lpf Urine Mucus (None) /hpf Crossmatch 07/07/23 07/07/23 07/07/23 Range/Units 14:14 14:14 18:05 WBC (3.8-10.6) k/uL RBC (4.30-5.90) m/uL Hgb (13.0-17.5) gm/dL Hct (39.0-53.0) % RDW (11.5-15.5) % Neutrophils # (1.3-7.7) k/uL Neutrophils # (Manual) (1.3-7.7) k/uL Lymphocytes # (Manual) (1.0-4.8) k/uL APTT (22.0-30.0) sec ABG pH (7.35-7.45) ABG pCO2 (35-45) mmHg ABG pO2 (83-108) mmHg ABG HCO3 (21-25) mmol/L ABG Total CO2 (19-24) mmol/L ABG O2 Saturation (94-97) % Sodium (137-145) mmol/L Carbon Dioxide (22-30) mmol/L BUN (9-20) mg/dL Glucose (74-99) mg/dL POC Glucose (mg/dL) (70-110) mg/dL Plasma Lactic Acid Luis 4.2 H* 3.1 H* (0.7-2.0) mmol/L Calcium (8.4-10.2) mg/dL Phosphorus (2.5-4.5) mg/dL Magnesium (1.6-2.3) mg/dL Alkaline Phosphatase (38-126) U/L Total Protein (6.3-8.2) g/dL Albumin (3.5-5.0) g/dL Urine Protein 1+ H (Negative) Urine Blood Small H (Negative) Ur Leukocyte Esterase Large H (Negative) Urine RBC (0-5) /hpf Urine WBC 77 H (0-5) /hpf Urine WBC Clumps (None) /hpf Uric Acid Crystals (None) /hpf Urine Bacteria Occasional H (None) /hpf Hyaline Casts 16 H (0-2) /lpf Urine Mucus Few H (None) /hpf Crossmatch 07/07/23 07/07/23 07/07/23 Range/Units 20:48 21:12 21:24 WBC (3.8-10.6) k/uL RBC (4.30-5.90) m/uL Hgb (13.0-17.5) gm/dL Hct (39.0-53.0) % RDW (11.5-15.5) % Neutrophils # (1.3-7.7) k/uL Neutrophils # (Manual) (1.3-7.7) k/uL Lymphocytes # (Manual) (1.0-4.8) k/uL APTT (22.0-30.0) sec ABG pH 7.26 L 7.27 L (7.35-7.45) ABG pCO2 52 H 49 H (35-45) mmHg ABG pO2 376 H 384 H (83-108) mmHg ABG HCO3 (21-25) mmol/L ABG Total CO2 25 H (19-24) mmol/L ABG O2 Saturation 98.9 H 99.3 H (94-97) % Sodium (137-145) mmol/L Carbon Dioxide (22-30) mmol/L BUN (9-20) mg/dL Glucose (74-99) mg/dL POC Glucose (mg/dL) 117 H (70-110) mg/dL Plasma Lactic Acid Luis (0.7-2.0) mmol/L Calcium (8.4-10.2) mg/dL Phosphorus (2.5-4.5) mg/dL Magnesium (1.6-2.3) mg/dL Alkaline Phosphatase (38-126) U/L Total Protein (6.3-8.2) g/dL Albumin (3.5-5.0) g/dL Urine Protein (Negative) Urine Blood (Negative) Ur Leukocyte Esterase (Negative) Urine RBC (0-5) /hpf Urine WBC (0-5) /hpf Urine WBC Clumps (None) /hpf Uric Acid Crystals (None) /hpf Urine Bacteria (None) /hpf Hyaline Casts (0-2) /lpf Urine Mucus (None) /hpf Crossmatch 07/07/23 07/07/23 07/07/23 Range/Units 21:54 23:50 23:50 WBC 31.5 H (3.8-10.6) k/uL RBC 3.32 L (4.30-5.90) m/uL Hgb 9.1 L D (13.0-17.5) gm/dL Hct 28.8 L (39.0-53.0) % RDW 17.4 H (11.5-15.5) % Neutrophils # (1.3-7.7) k/uL Neutrophils # (Manual) 30.20 H (1.3-7.7) k/uL Lymphocytes # (Manual) 0.95 L (1.0-4.8) k/uL APTT (22.0-30.0) sec ABG pH (7.35-7.45) ABG pCO2 (35-45) mmHg ABG pO2 (83-108) mmHg ABG HCO3 (21-25) mmol/L ABG Total CO2 (19-24) mmol/L ABG O2 Saturation (94-97) % Sodium 132 L (137-145) mmol/L Carbon Dioxide 19 L (22-30) mmol/L BUN (9-20) mg/dL Glucose 157 H (74-99) mg/dL POC Glucose (mg/dL) (70-110) mg/dL Plasma Lactic Acid Luis (0.7-2.0) mmol/L Calcium 6.8 L (8.4-10.2) mg/dL Phosphorus (2.5-4.5) mg/dL Magnesium 1.4 L (1.6-2.3) mg/dL Alkaline Phosphatase (38-126) U/L Total Protein 4.2 L (6.3-8.2) g/dL Albumin 1.6 L (3.5-5.0) g/dL Urine Protein (Negative) Urine Blood (Negative) Ur Leukocyte Esterase (Negative) Urine RBC (0-5) /hpf Urine WBC (0-5) /hpf Urine WBC Clumps (None) /hpf Uric Acid Crystals (None) /hpf Urine Bacteria (None) /hpf Hyaline Casts (0-2) /lpf Urine Mucus (None) /hpf Crossmatch See Detail 07/08/23 07/08/23 07/08/23 Range/Units 01:53 05:03 05:09 WBC 25.3 H (3.8-10.6) k/uL RBC 3.66 L (4.30-5.90) m/uL Hgb 10.0 L (13.0-17.5) gm/dL Hct 31.6 L (39.0-53.0) % RDW 17.0 H (11.5-15.5) % Neutrophils # 23.3 H (1.3-7.7) k/uL Neutrophils # (Manual) (1.3-7.7) k/uL Lymphocytes # (Manual) (1.0-4.8) k/uL APTT (22.0-30.0) sec ABG pH (7.35-7.45) ABG pCO2 (35-45) mmHg ABG pO2 (83-108) mmHg ABG HCO3 (21-25) mmol/L ABG Total CO2 (19-24) mmol/L ABG O2 Saturation (94-97) % Sodium (137-145) mmol/L Carbon Dioxide (22-30) mmol/L BUN (9-20) mg/dL Glucose (74-99) mg/dL POC Glucose (mg/dL) 158 H (70-110) mg/dL Plasma Lactic Acid Luis (0.7-2.0) mmol/L Calcium (8.4-10.2) mg/dL Phosphorus (2.5-4.5) mg/dL Magnesium (1.6-2.3) mg/dL Alkaline Phosphatase (38-126) U/L Total Protein (6.3-8.2) g/dL Albumin (3.5-5.0) g/dL Urine Protein Trace H (Negative) Urine Blood Trace H (Negative) Ur Leukocyte Esterase Large H (Negative) Urine RBC 6 H (0-5) /hpf Urine WBC >182 H (0-5) /hpf Urine WBC Clumps Rare H (None) /hpf Uric Acid Crystals Few H (None) /hpf Urine Bacteria Occasional H (None) /hpf Hyaline Casts 17 H (0-2) /lpf Urine Mucus Rare H (None) /hpf Crossmatch 07/08/23 07/08/23 Range/Units 05:09 05:43 WBC (3.8-10.6) k/uL RBC (4.30-5.90) m/uL Hgb (13.0-17.5) gm/dL Hct (39.0-53.0) % RDW (11.5-15.5) % Neutrophils # (1.3-7.7) k/uL Neutrophils # (Manual) (1.3-7.7) k/uL Lymphocytes # (Manual) (1.0-4.8) k/uL APTT (22.0-30.0) sec ABG pH (7.35-7.45) ABG pCO2 34 L (35-45) mmHg ABG pO2 124 H (83-108) mmHg ABG HCO3 20 L (21-25) mmol/L ABG Total CO2 (19-24) mmol/L ABG O2 Saturation 98.2 H (94-97) % Sodium 135 L (137-145) mmol/L Carbon Dioxide 17 L (22-30) mmol/L BUN (9-20) mg/dL Glucose 141 H (74-99) mg/dL POC Glucose (mg/dL) (70-110) mg/dL Plasma Lactic Acid Luis (0.7-2.0) mmol/L Calcium 6.8 L (8.4-10.2) mg/dL Phosphorus 4.7 H (2.5-4.5) mg/dL Magnesium (1.6-2.3) mg/dL Alkaline Phosphatase (38-126) U/L Total Protein (6.3-8.2) g/dL Albumin (3.5-5.0) g/dL Urine Protein (Negative) Urine Blood (Negative) Ur Leukocyte Esterase (Negative) Urine RBC (0-5) /hpf Urine WBC (0-5) /hpf Urine WBC Clumps (None) /hpf Uric Acid Crystals (None) /hpf Urine Bacteria (None) /hpf Hyaline Casts (0-2) /lpf Urine Mucus (None) /hpf Crossmatch Assessment and Plan (1) Infected decubitus ulcer Status: Acute Code(s): L89.90 - PRESSURE ULCER OF UNSPECIFIED SITE, UNSPECIFIED STAGE; L08.9 - LOCAL INFECTION OF THE SKIN AND SUBCUTANEOUS TISSUE, UNSP SNOMED Code(s): 233067626 (2) Sepsis Status: Acute Code(s): A41.9 - SEPSIS, UNSPECIFIED ORGANISM SNOMED Code(s): 95338149 Plan: 1patient presented to hospital with sepsis in this patient who did have a hypothermia tachycardia elevated white count source is infected sacral pressure ulcer and concern for underlying osteomyelitis in this patient who is status post extensive debridement in the OR completed yesterday and deep culture which are currently pending with Gram stain showing both gram-negative bacilli as well as gram-positive cocci 2-we will continue patient on vancomycin and Zosyn watching his kidney function closely with this antibiotic combination 3-continue local wound care per surgical team 4-we will check his inflammatory markers We will follow on clinical condition and cultures to further adjust medication if needed Thank you for this consultation we will follow the patient along with you Dictation was produced using [employer] dictation software. please excuse any grammatical, word or spelling errors. Time with Patient: Greater than 30
[2023-07-08] MEDS: ANIDULAFUNGIN 100 MG in SODIUM CHLORIDE 0.9% 100 ML IVPB SCH (20:55)
[2023-07-08 23:53] LABS: Glucose,Whole Blood 141 mg/dL (70-110)
[2023-07-09] MEDS: fentaNYL (PF) 50 MCG/ML 2 ML AMP IVP PRN ×3 (00:37→16:07)
[2023-07-09] MEDS: AMIODARONE 360 MG in DEXTROSE 5% IN WATER 200 ML IV SCH ×6 (01:54→07:19)
[2023-07-09] MEDS: VANCOMYCIN 2,000 MG in SODIUM CHLORIDE 0.9% 500 ML 500 ML IVPB SCH (01:55)
[2023-07-09] MEDS: VASOPRESSIN 60 UNIT in SODIUM CHLORIDE 0.9% 150 ML IV SCH (03:05)
[2023-07-09] MEDS: IPRATROPIUM-ALBUTEROL 3 ML NEB INHALATION SCH ×5 (03:54→20:23)
[2023-07-09 05:01] LABS: ALT 8 U/L (4-49); AST 17 U/L (17-59); African American GFR (CKD) >90 (>60 ml/min/1.73 sqM); Albumin 1.4 g/dL (3.5-5.0); Alkaline Phosphatase 78 U/L (38-126); Anion Gap 7 mmol/L; Blood Urea Nitrogen 18 mg/dL (9-20); Carbon Dioxide 16 mmol/L (22-30); Chloride 108 mmol/L (98-107); Glucose 136 mg/dL (74-99); INR 1.1 (<1.2); Magnesium 1.7 mg/dL (1.6-2.3); Non-African American GFR(CKD) >90 (>60 ml/min/1.73 sqM); Phosphorus 4.1 mg/dL (2.5-4.5); Potassium 3.2 mmol/L (3.5-5.1); Prothrombin Time 12.1 sec (10.0-12.5); Sodium 131 mmol/L (137-145); Total Bilirubin 0.3 mg/dL (0.2-1.3); Total Protein 3.7 g/dL (6.3-8.2)
[2023-07-09 05:10] LABS: Calcium 6.4 mg/dL (8.4-10.2)
[2023-07-09] MEDS ORDERED: MAGNESIUM SULFATE-D5W PMX 1 GM in DEXTROSE/WATER 1 100ML.BAG IVPB ONE (05:18)
[2023-07-09] MEDS: POTASSIUM BICARBONATE/CIT AC 20 MEQ TABLET.EFF NG-TUBE SCH ×7 (05:40→21:52)
[2023-07-09 05:54] LABS: ABG Base Excess -5.2 mmol/L; ABG HCO3 20 mmol/L (21-25); ABG Oxygen Saturation 98.9 % (94-97); ABG PCO2 32 mmHg (35-45); ABG PO2 170 mmHg (83-108); ABG TCO2 21 mmol/L (19-24); Allen Test Performed? Yes
[2023-07-09 05:56] LABS: Anisocytosis Slight; Basophils % (A) 0 %; Eosinophils # (A) 0.1 k/uL (0-0.7); Eosinophils % (A) 1 %; HCT 22.8 % (39.0-53.0); Hypochromasia Marked; Lymphocytes # (A) 1.1 k/uL (1.0-4.8); Lymphocytes % (A) 8 %; MCH 27.2 pg (25.0-35.0); MCHC 31.3 g/dL (31.0-37.0); MCV 86.9 fL (80.0-100.0); Mean Platelet Volume 7.6; Monocytes # (A) 0.5 k/uL (0-1.0); Monocytes % (A) 4 %; Neutrophils # (A) 11.2 k/uL (1.3-7.7); Neutrophils % (A) 85 %; Platelet Count 221 k/uL (150-450); Poikilocytosis Slight; RBC 2.62 m/uL (4.30-5.90); RDW 17.4 % (11.5-15.5); WBC 13.2 k/uL (3.8-10.6)
[2023-07-09 05:57] LABS: Glucose,Whole Blood 137 mg/dL (70-110)
[2023-07-09] MEDS ORDERED: CALCIUM GLUCONATE IN NACL 2 GM in SALINE 1 100ML.BAG IVPB ONE (06:22)
[2023-07-09] MEDS: LACTOBACILLUS ACIDOPHILUS/PECT 1 EACH CAPSULE PO SCH ×2 (06:34→18:07)
[2023-07-09 06:50] LABS: HGB 7.1 gm/dL (13.0-17.5)
[2023-07-09] MEDS: PIPERACILLIN-TAZOBACTAM 3.375 GM in SODIUM CHLORIDE 0.9% 100 ML IVPB SCH ×3 (07:59→23:07)
[2023-07-09] MEDS: ENOXAPARIN 40 MG/0.4 ML SYRINGE SQ SCH (07:59)
[2023-07-09] MEDS: CHLORHEXIDINE GLUCONATE 15 ML CUP MUCOUS MEM SCH ×2 (07:59→20:46)
[2023-07-09] MEDS: THIAMINE 100 MG TAB PO SCH (08:00)
[2023-07-09] MEDS: NICOTINE 14MG/24HR PATCH TRANSDERM SCH (08:00)
[2023-07-09] MEDS: ATORVASTATIN 20 MG TAB PO SCH (08:00)
[2023-07-09] MEDS: PANTOPRAZOLE 40 MG/10 ML VIAL IV SCH (08:00)
[2023-07-09] MEDS ORDERED: FUROSEMIDE 10 MG/ML 4 ML VIAL IV STA (08:42)
[2023-07-09] MEDS: NYSTATIN 100,000 UNIT/GM POWD 15 GM TOPICAL SCH ×3 (09:23→21:52)
--- NOTE | 2023-07-09 09:27 | P.PN ---
Subjective Progress Note Date: 07/09/23 The patient is a 63-year-old male with multiple comorbid conditions who presented to the emergency room with hypotension and elevated heart rate. He was found to be septic, likely secondary to infected lumbar and sacral decubitus ulcers. He has an extensive cardiac history and has been completely immobile over the last several months. He has not been following up with his primary care provider or bacteriology technician. Cardiology has been consulted for elevated troponin, however the patient also developed A. fib with RVR. He was given an amiodarone bolus followed by continuous drip. Rates continue to be elevated yesterday, therefore drip was increased to 1 mg every last 24 hours. Heart rates have improved over the last 24 hours as well as being weaned from vasopressors. GENERAL: Ill-appearing, obese male and in no acute distress. Currently sedated on ventilator NECK: Supple without JVD or thyromegaly. LUNGS: Breath sounds rhonchorous to auscultation bilaterally. Respiration equal and unlabored. HEART: Irregular rate and rhythm without murmurs, rubs or gallops. S1 and S2 heard. EXTREMITIES: Normal range of motion, mild bilateral edema. Chronic discoloration. TELEMETRY: Rate controlled atrial fibrillation in the 70s. Nursing staff states this improved overnight LABS: W BC 13.2, hemoglobin 10.1, hematocrit 22.8, platelet 221, sodium 131, potassium 3.2, BUN 18, creatinine 0.88, AST 17, ALT 8 IMPRESSION: Septicemia/septic shock Infected lumbar and sacral decubitus ulcers, status post debridement Elevated troponins, secondary to septic shock Acute hypoxic respiratory failure A. fib with RVR Anemia, anticoagulation currently on hold COPD PLAN: Maintain amiodarone and 0.5 mg infusion Agree with Lasix for pulmonary congestion Continue to wean from vasopressors as tolerated Start anticoagulation when cleared by surgery. Patient has had postoperative anemia after his wound debridement. Further recommendations to be based on clinical course I am dictating on behalf of Dr aCrlos Howe's history/physical and assessment/plan. Objective - Vital Signs Vital signs: Vital Signs Temp 37.7 F L 07/09/23 08:00 Pulse 77 07/09/23 08:47 Resp 24 07/09/23 08:47 BP 91/66 07/09/23 08:15 Pulse Ox 99 01/03/24 08:45 FiO2 35 07/09/23 08:40 Intake & Output 07/08/23 07/09/23 07/09/23 18:59 06:59 18:59 Intake Total 3989.039 2486.466 414.444 Output Total 925 1470 125 Balance 3064.039 1016.466 289.444 Weight 140.5 kg Intake: IV 1200 300 Piperacillin-Tazobactam 3 100 .375 gm In Sodium Chloride 0.9% 100 ml @ 25 mls/hr IVPB Q8HR [facility] Rx# :[id number] Sodium Chloride 0.9% 1, 1200 200 000 ml @ 100 mls/hr IV . Q10H [facility] Rx#:[id number] Intake, IV Titration 3939.039 966.466 24.444 Amount Amiodarone 360 mg In 241.221 Dextrose 5% in Water 200 ml @ 1 MG/MIN 33.333 mls/ hr IV .Q6H [facility] Rx#: [id number] Amiodarone 360 mg In 132 33 Dextrose 5% in Water 200 ml @ 1 MG/MIN 33.333 mls/ hr IV .Q6H [facility] Rx#: [id number] Amiodarone 360 mg In 156.11 24.444 Dextrose 5% in Water 200 ml @ 1 MG/MIN 33.333 mls/ hr IV .Q6H [facility] Rx#: [id number] Anidulafungin 100 mg In 100 Sodium Chloride 0.9% 100 ml @ 84 mls/hr IVPB HS [facility] Rx#:[id number] Magnesium Sulfate-D5w Pmx 33 1 gm In Dextrose/Water 1 100ml.bag @ 100 mls/hr IVPB Q1H [facility] Rx#: [id number] Norepinephrine 4 mg In 870.876 175.410 Sodium Chloride 0.9% 250 ml @ 0.05 MCG/KG/MIN 25. 923 mls/hr IV .Q9H48M [facility] Rx#:[id number] Piperacillin-Tazobactam 3 400 .375 gm In Sodium Chloride 0.9% 100 ml @ 25 mls/hr IVPB Q8HR [facility] Rx# :[id number] Sodium Chloride 0.9% 1, 1350 000 ml @ 100 mls/hr IV . Q10H [facility] Rx#:[id number] Vancomycin 2,000 mg In 500 Sodium Chloride 0.9% 500 ml 500 ml @ 167 mls/hr IVPB Q12H [facility] Rx#: [id number] Vasopressin 60 unit In 16.142 108.324 Sodium Chloride 0.9% 150 ml @ 0.03 UNITS/MIN 4.59 mls/hr IV .Q24H [facility] Rx#: [id number] propofoL 1,000 mg In 395.8 393.622 Empty Bag 1 bag @ 15 MCG/ KG/MIN 12.247 mls/hr IV . Q8H10M [facility] Rx#:[id number] Tube Feeding 50 230 60 Other 90 30 Output: Urine 925 1470 125 Other: Voiding Method Indwelling Catheter Indwelling Catheter Indwelling Catheter # Bowel Movements 1 ABP, PAP, CO, CI - Last Documented Arterial Blood Pressure 98/48 - Labs CBC & Chem 7: 07/09/23 05:36 07/09/23 04:35 Labs: Abnormal Lab Results - Last 24 Hours (Table) 07/08/23 07/09/23 07/09/23 Range/Units 23:51 04:35 05:30 WBC (3.8-10.6) k/uL RBC (4.30-5.90) m/uL Hgb (13.0-17.5) gm/dL Hct (39.0-53.0) % RDW (11.5-15.5) % Neutrophils # (1.3-7.7) k/uL ABG pCO2 (35-45) mmHg ABG pO2 (83-108) mmHg ABG HCO3 (21-25) mmol/L ABG O2 Saturation (94-97) % Sodium 131 L (137-145) mmol/L Potassium 3.2 L (3.5-5.1) mmol/L Chloride 108 H (98-107) mmol/L Carbon Dioxide 16 L (22-30) mmol/L Glucose 136 H (74-99) mg/dL POC Glucose (mg/dL) 141 H (70-110) mg/dL Calcium 6.4 L* (8.4-10.2) mg/dL Ionized Calcium Ramila 4.2 L (4.5-5.3) mg/dL Total Protein 3.7 L (6.3-8.2) g/dL Albumin 1.4 L (3.5-5.0) g/dL 07/09/23 07/09/23 07/09/23 Range/Units 05:36 05:38 05:55 WBC 13.2 H (3.8-10.6) k/uL RBC 2.62 L (4.30-5.90) m/uL Hgb 7.1 L D (13.0-17.5) gm/dL Hct 22.8 L (39.0-53.0) % RDW 17.4 H (11.5-15.5) % Neutrophils # 11.2 H (1.3-7.7) k/uL ABG pCO2 32 L (35-45) mmHg ABG pO2 170 H (83-108) mmHg ABG HCO3 20 L (21-25) mmol/L ABG O2 Saturation 98.9 H (94-97) % Sodium (137-145) mmol/L Potassium (3.5-5.1) mmol/L Chloride (98-107) mmol/L Carbon Dioxide (22-30) mmol/L Glucose (74-99) mg/dL POC Glucose (mg/dL) 137 H (70-110) mg/dL Calcium (8.4-10.2) mg/dL Ionized Calcium Ramila (4.5-5.3) mg/dL Total Protein (6.3-8.2) g/dL Albumin (3.5-5.0) g/dL Microbiology - Last 24 Hours (Table) 07/07/23 09:04 Gram Stain - Preliminary Back Tissue Culture - Preliminary Gram Neg Bacilli 07/07/23 14:14 Blood Culture Gram Stain - Preliminary Blood Blood Culture - Preliminary 07/07/23 14:14 Blood Culture - Preliminary Blood 07/08/23 00:30 Gram Stain - Preliminary Sputum
--- NOTE | 2023-07-09 09:28 | XR ---
EXAMINATION TYPE: XR chest 1V portable DATE OF EXAM: 07/09/2023 5:42 AM CLINICAL INDICATION:Male, 63 years old with history of Tube placement; COMPARISON: Chest radiographs from 07/08/2023. TECHNIQUE: XR chest 1V portable Frontal view of the chest. FINDINGS: Lungs/Pleura: No evidence of focal consolidation or pneumothorax. Blunting of the costophrenic angles is present. Pulmonary vascularity: Unremarkable. Heart/mediastinum: Cardiomediastinal silhouette is enlarged and stable. Musculoskeletal: No acute osseous pathology. Other findings: None Lines/Tubes: Endotracheal tube with distal tip 5.5 cm above the omega. Nasogastric tube with its distal tip and side-port projecting under the diaphragm. IMPRESSION: 1. Support tubes in appropriate position. 2. Bilateral pleural effusions which are layering.
[2023-07-09] MEDS ORDERED: AMIODARONE 360 MG in DEXTROSE 5% IN WATER 200 ML IV SCH ×2 (10:00)
[2023-07-09] MEDS ORDERED: FUROSEMIDE 10 MG/ML 4 ML VIAL IV PRN (10:27)
[2023-07-09 10:48] LABS: Glucose,Whole Blood 202 mg/dL (70-110)
[2023-07-09] MEDS: AMIODARONE 450 MG in DEXTROSE 5% IN WATER 250 ML IV SCH ×2 (11:13)
[2023-07-09] MEDS: SODIUM CHLORIDE 0.9% 1,000 ML IV SCH ×2 (11:27→21:52)
--- NOTE | 2023-07-09 11:39 | P.PN ---
Subjective Progress Note Date: 07/09/23 Principal diagnosis: Septic shock and acute hypoxic respiratory failure I am seeing this patient in consultation today 07/08/2023 in the intensive care unit after presenting to the emergency room yesterday afternoon. He was found to have a large sacral decubitus ulcer that was felt to be infected. He underwent excisional debridement of the necrotic sacral decubitus ulcer late last night. He was then transferred to the intensive care unit and remains on the ventilator. Patient is a 63-year-old white male with past medical history significant for atrial fibrillation, hypertension, hyperlipidemia, COPD, chronic ongoing tobacco dependence, alcoholism, among other things. As stated, the patient is currently intubated on the mechanical ventilator, and unable to provide any history. Patient's mother is at the bedside, reports that over the last month or so the patient has been fairly dependent in his chair. He's been very weak and unable to ambulate. She has been bringing him food. He likely hasn't been taking his medications for the last 2 weeks because he ran out. He's had ongoing issues with diarrhea and cannot get to the bathroom. On arrival to the emergency room, he was found to have a very large sacral decubitus pressure ulcer. It was felt to be infected with areas of necrosis and purulent drainage. A CT of the abdomen and pelvis demonstrated a large sacral decubitus ulcer with exposed sacral and coccyx bone. No organizing fluid collections to suggest abscess. There was gas tracking along the myofascial planes in the buttocks/pelvic region felt to be likely due to a large defect and skin/subcutaneous tissue. No definitive osteomyelitis noted. There is subcutaneous edema throughout the soft tissues around the pelvis. There was bilateral pleural effusions, cardiomegaly, and a nonobstructive left renal calculus. Patient was taken to the OR for debridement late last night. He is currently in the intensive care unit and intubated to the mechanical ventilator. Ventilator settings are assist control, respiratory rate 24, tidal volume 500, FiO2 50%, PEEP of 5. These were adjusted based on the most recent ABG including a PaO2 of 384, pCO2 49, pH is 7.27. Post-op chest x-ray demonstrates the endotracheal tube above the omega. There is a orogastric tube coursing below the diaphragm. Chest x-ray shows cardiomegaly, pulmonary vasculature congestion, and bilateral pleural effusions with associated atelectasis. He is sedated on propofol at 30 mcg/kg/m. Fairly synchronous with mechanical ventilator. Heart rhythm is atrial fibrillation with rapid ventricular rate ranging from 140-180 bpm. Blood pressure was hypotensive and he was bolused 3 L normal saline. Then started on vasopressors with norepinephrine infusing at 0.1 mcg/kg/m. Blood pressure remains labile and fluctuates with extreme tachycardia. Amiodarone was started per protocol and he was bolused 150 mg and is currently infusing at 1 mg/m. A femoral central line catheter was established in OR. Patient appears septic, and is empirically covered with a combination of Zosyn and vancomycin. Pancultures are pending. C. diff EIA is pending. Most recent CBC shows a WBC count of 31.5, hemoglobin 9.1, hematocrit 28.8, platelets 351. CMV has a sodium 132, potassium 3.6, chloride 106, serum bicarb 19, BUN 19, creatinine 0.73, glucose 157. Magnesium is 1.4 and is being replaced. Lactic acid level was elevated at 4.2 and is down to 3.1. Prognosis is guarded and his condition is currently critical. He is being monitored in the intensive care unit. Patient was reevaluated today on 07/09/2023, remains in the ICU, intubated and mechanically ventilated. Patient is on assist control rate of 24 tidal volume 500 FiO2 40% and PEEP of 5 ABG showed a pO2 of 170 pCO2 32 pH of 7.40 hence his FiO2 was cut down to 35%. Patient remains in atrial fibrillation, he is on amiodarone at 1 mcg/m, vasopressin at 0.04 units per minute, norepinephrine at 0.01 mcg/kg/m propofol at 40 mcg/kg/m patient remains on Zosyn and vancomycin and an axis. His IV fluid is 0.9 normal saline at 100 mL/h. He did receive Lasix yesterday and he had a significant urine output, hemoglobin today however is down to 7.1, and that is most likely from his blood loss from his debridement of the sacral decubitus ulcer history definite improvement today compared to yesterday, nonetheless the patient remains critically ill, remains septic and requiring pressors. However his heart rate is better controlled blood pressure is better controlled and he is on (compared to yesterday. The plan is to discontinue norepinephrine and continue vasopressin for now. And we will continue fluids at 100 mL/h nonetheless the patient will receive another dose of Lasix today as he received significant fluid boluses yesterday for low blood pressure. And the patient is known to have history of LV dysfunction. WBC count today is 13.2 hemoglobin is 7.1, potassium 3.2 BUN is normal creatinine is normal chest x-ray showed bilateral small pleural effusions, no pneumonia, Objective - Vital Signs Vital signs: Vital Signs Temp 37.7 F L 07/09/23 08:00 Pulse 65 07/09/23 10:15 Resp 24 07/09/23 10:15 BP 91/66 07/09/23 09:00 Pulse Ox 100 07/09/23 10:15 FiO2 35 07/09/23 08:40 Intake & Output 07/08/23 07/09/23 07/09/23 18:59 06:59 18:59 Intake Total 3989.039 2486.466 931.838 Output Total 925 1470 770 Balance 3064.039 1016.466 161.838 Weight 140.5 kg Intake: IV 1200 600 Piperacillin-Tazobactam 3 100 .375 gm In Sodium Chloride 0.9% 100 ml @ 25 mls/hr IVPB Q8HR [facility] Rx# :[id number] Sodium Chloride 0.9% 1, 1200 500 000 ml @ 100 mls/hr IV . Q10H [facility] Rx#:[id number] Intake, IV Titration 3939.039 966.466 151.838 Amount Amiodarone 360 mg In 241.221 Dextrose 5% in Water 200 ml @ 1 MG/MIN 33.333 mls/ hr IV .Q6H [facility] Rx#: [id number] Amiodarone 360 mg In 132 33 Dextrose 5% in Water 200 ml @ 1 MG/MIN 33.333 mls/ hr IV .Q6H [facility] Rx#: [id number] Amiodarone 360 mg In 156.11 24.444 Dextrose 5% in Water 200 ml @ 1 MG/MIN 33.333 mls/ hr IV .Q6H [facility] Rx#: [id number] Anidulafungin 100 mg In 100 Sodium Chloride 0.9% 100 ml @ 84 mls/hr IVPB HS [facility] Rx#:[id number] Magnesium Sulfate-D5w Pmx 33 1 gm In Dextrose/Water 1 100ml.bag @ 100 mls/hr IVPB Q1H [facility] Rx#: [id number] Norepinephrine 4 mg In 870.876 175.410 27.394 Sodium Chloride 0.9% 250 ml @ 0.05 MCG/KG/MIN 25. 923 mls/hr IV .Q9H48M [facility] Rx#:[id number] Piperacillin-Tazobactam 3 400 .375 gm In Sodium Chloride 0.9% 100 ml @ 25 mls/hr IVPB Q8HR [facility] Rx# :[id number] Sodium Chloride 0.9% 1, 1350 000 ml @ 100 mls/hr IV . Q10H [facility] Rx#:[id number] Vancomycin 2,000 mg In 500 Sodium Chloride 0.9% 500 ml 500 ml @ 167 mls/hr IVPB Q12H [facility] Rx#: [id number] Vasopressin 60 unit In 16.142 108.324 Sodium Chloride 0.9% 150 ml @ 0.03 UNITS/MIN 4.59 mls/hr IV .Q24H [facility] Rx#: [id number] propofoL 1,000 mg In 395.8 393.622 100 Empty Bag 1 bag @ 15 MCG/ KG/MIN 12.247 mls/hr IV . Q8H10M [facility] Rx#:[id number] Tube Feeding 50 230 150 Other 90 30 Output: Urine 925 1470 770 Other: Voiding Method Indwelling Catheter Indwelling Catheter Indwelling Catheter # Bowel Movements 1 ABP, PAP, CO, CI - Last Documented Arterial Blood Pressure 107/52 - Exam GENERAL EXAM: Revealed 63-year-old white male obese, intubated and mechanically ventilated. HEAD: Normocephalic and atraumatic EYES: Normal reaction of pupils, equal size. NOSE: Clear with pink turbinates. THROAT: No erythema or exudates endotracheal tube and orogastric tube are intact.. NECK: No masses, no JVD. Short obese neck is noted. CHEST: No chest wall deformity. LUNGS: Diminished breath sounds at the bases no crackles or rhonchi or wheezes CVS: S1 and S2 normal with no audible murmur, irregular rhythm. ABDOMEN: Obese, No hepatosplenomegaly, active bowel sounds, no guarding or rigidity. SKIN: Contact dermatitis noted underneath neck folds, breasts, and abdominal folds. Sacral decubitus debridement site is dressed with postoperative dressings. Bilateral lower extremity heel pressure injuries, stage II CENTRAL NERVOUS SYSTEM: Sedated on propofol, unable to assess Psychiatric: Unable to assess EXTREMITIES: Chronic venous stasis changes with mild to moderate nonpitting edema. No clubbing, or cyanosis. Peripheral pulses are intact. - Labs CBC & Chem 7: 07/09/23 05:36 07/09/23 10:50 Labs: Abnormal Lab Results - Last 24 Hours (Table) 07/07/23 07/08/23 07/09/23 Range/Units 21:54 23:51 04:35 WBC (3.8-10.6) k/uL RBC (4.30-5.90) m/uL Hgb (13.0-17.5) gm/dL Hct (39.0-53.0) % RDW (11.5-15.5) % Neutrophils # (1.3-7.7) k/uL ABG pCO2 (35-45) mmHg ABG pO2 (83-108) mmHg ABG HCO3 (21-25) mmol/L ABG O2 Saturation (94-97) % Sodium 131 L (137-145) mmol/L Potassium 3.2 L (3.5-5.1) mmol/L Chloride 108 H (98-107) mmol/L Carbon Dioxide 16 L (22-30) mmol/L Glucose 136 H (74-99) mg/dL POC Glucose (mg/dL) 141 H (70-110) mg/dL Calcium 6.4 L* (8.4-10.2) mg/dL Ionized Calcium Ramila (4.5-5.3) mg/dL Total Protein 3.7 L (6.3-8.2) g/dL Albumin 1.4 L (3.5-5.0) g/dL Crossmatch See Detail 07/09/23 07/09/23 07/09/23 Range/Units 05:30 05:36 05:38 WBC 13.2 H (3.8-10.6) k/uL RBC 2.62 L (4.30-5.90) m/uL Hgb 7.1 L D (13.0-17.5) gm/dL Hct 22.8 L (39.0-53.0) % RDW 17.4 H (11.5-15.5) % Neutrophils # 11.2 H (1.3-7.7) k/uL ABG pCO2 32 L (35-45) mmHg ABG pO2 170 H (83-108) mmHg ABG HCO3 20 L (21-25) mmol/L ABG O2 Saturation 98.9 H (94-97) % Sodium (137-145) mmol/L Potassium (3.5-5.1) mmol/L Chloride (98-107) mmol/L Carbon Dioxide (22-30) mmol/L Glucose (74-99) mg/dL POC Glucose (mg/dL) (70-110) mg/dL Calcium (8.4-10.2) mg/dL Ionized Calcium Ramila 4.2 L (4.5-5.3) mg/dL Total Protein (6.3-8.2) g/dL Albumin (3.5-5.0) g/dL Crossmatch 07/09/23 07/09/23 07/09/23 Range/Units 05:55 10:47 10:50 WBC (3.8-10.6) k/uL RBC (4.30-5.90) m/uL Hgb (13.0-17.5) gm/dL Hct (39.0-53.0) % RDW (11.5-15.5) % Neutrophils # (1.3-7.7) k/uL ABG pCO2 (35-45) mmHg ABG pO2 (83-108) mmHg ABG HCO3 (21-25) mmol/L ABG O2 Saturation (94-97) % Sodium (137-145) mmol/L Potassium 3.3 L (3.5-5.1) mmol/L Chloride (98-107) mmol/L Carbon Dioxide (22-30) mmol/L Glucose (74-99) mg/dL POC Glucose (mg/dL) 137 H 202 H (70-110) mg/dL Calcium (8.4-10.2) mg/dL Ionized Calcium Ramila (4.5-5.3) mg/dL Total Protein (6.3-8.2) g/dL Albumin (3.5-5.0) g/dL Crossmatch Microbiology - Last 24 Hours (Table) 07/07/23 09:04 Gram Stain - Preliminary Back Tissue Culture - Preliminary Gram Neg Bacilli 07/07/23 14:14 Blood Culture Gram Stain - Preliminary Blood Blood Culture - Preliminary 07/07/23 14:14 Blood Culture - Preliminary Blood 07/08/23 00:30 Gram Stain - Preliminary Sputum Assessment and Plan Assessment: Impression: Septic shock, primary source is infected large sacral decubitus ulcer Infected large sacral decubitus ulcer with secondary sepsis status postoperative day #2 following large excisional debridement. Acute hypoxemic and hypercapnic respiratory failure, requiring intubation and mechanical ventilation, multifactorial mostly related to his septic shock and his bilateral pleural effusion/congestive heart failure/systolic in nature Paroxysmal Atrial fibrillation with rapid ventricular rate, currently on amiodarone infusion per protocol. Acute blood loss anemia, expected outcome of surgery Diarrhea, check C. diff Possible UTI fungal dermatitis involving his axillary region and groin bilaterally Chronic obstructive pulmonary disease, stable Chronic ongoing tobacco dependence History of alcoholism, last drink reportedly 6 weeks ago History of hypertension History of hyperlipidemia Obesity, with a BMI of 37.5 kg/m Recommendation: Continue ventilatory support, vent settings were adjusted Continue hemodynamic support/pressors and titrate accordingly Start the nutritional support/enteral feeding Continue antibiotics as per infectious disease on the case Continue GI and DVT prophylaxis Continue amiodarone, and cardiology to address atrial fibrillation further. Intermittent gentle diuresis. Continue to monitor labs including electrolytes, renal profile, and CBC Transfuse if necessary or if hemoglobin below 7 Considering the patient may require another debridement, would hold on further weaning but we'll assess mental status today, sedation holiday will be given. Patient remains critically ill, We'll continue to follow. Critical care time is over 30 minutes Time with Patient: Greater than 30
--- NOTE | 2023-07-09 14:43 | P.PN ---
Subjective Progress Note Date: 07/09/23 (delayed charting seen at 1030) Patient is a 63-year-old male with permanent atrial fibrillation, COPD, hypertension, congestive heart failure per patient, and chronic lower extremity weakness who presented to the ER due to increased congestion. On arrival to the ER his vital signs were remarkable for a blood pressure of 83/37 and a pulse of 113. Laboratory analysis included CBC, coags, CMP, CK, and lactic acid which were remarkable for white blood cell count 24.1, hemoglobin 11.6, sodium 132, and lactic acid of 4.2. On arrival to the emergency department the patient was covered in feces and was desheveled. He was started on vancomycin, and Rocephin. He was seen by pulmonary and Eraxis was added. He received 2 L of IV fluids but remained hypotensive. I contacted general surgery who came in to see the patient and took him to the OR. He underwent an urgent wide excisional debrided of necrotic sacral decubitus ulcer. He was subsequently taken to the ICU he was intubated. He did require multiple vasopressors to be added including levo and days ago. He then developed atrial fibrillation with rapid ventricular response and amiodarone was initiated. Cardiology consult was placed. Echocardiogram showed ejection fraction 30-35% but may be underestimated due to tachycardia. CT abdomen and pelvis did confirm a large ulcer with exposed bone. Patient seen and examined at bedside. Remains sedated on the vent. No acute events overnight. His amiodarone drip was decreased by cardio per nursing. This morning they were able to come off of levothyroid he continues on vasopressin. Vital signs reviewed General: Ill-appearing, no distress, older than stated age Cardiovascular: And S2 tachycardic, no murmur, positive posterior tibial pulse bilateral, Lungs: Course bs Bilateral, no rhonchi, no rales , no accessory muscle use on vent Abdominal: soft, nontender to palpation, no guarding, Ext: +gross muscle atrophy, 1+ edema b/l lower extremities, + flexion contracture b/l LE Neuro: Sedated on vent Psych: Sedated on vent Assessment/Plan: Infected lumbar and sacral decubitus ulcer with severe sepsis Functional quadralplegia with b/l le flexion contracture B/l Heel stage II pressure ulcures Severe Protein calorie malnutrition Class II obesity with BMI 37.5 Possibel Gram + bacilli bacteremia - Eraxis 100 mg daily daily #3 - Zosyn 3.375 g IV piggyback every 8 hours day #3 - Vancomycin IV piggyback daily #3, monitor creatinine and a trough for signs of toxicity. - Wean vasopressin as able - await final blood cultures -Pulmonary note reviewed: Patient holiday to assess mental status. -Await further infectious disease recommendations - Surgery recs: will possibly need repeat debridement and diverting colostomy once more stable. Acute blood loss anemia, anticipated outcome of surgery -Anticipate patient have continued blood loss giving need for surgical debridement over social large area. We'll transfuse 1 unit of packed red blood cells and follow with 40 mg of Lasix IV push 1 -Repeat CBC in a.m. Acute exacerbation of systolic CHF with EF 30-35% (me be under estimated due to tachycardia) Permanent atrial fibrillation with rapid ventricular response HTN - Cardiology note reviewed: Decrease amiodarone to 0.5 mg, start check coagulation with surgery in agreement. -Amiodarone infusion Lactic adiosis, resolved Diarrhea, resolved Imaging: Chest x-ray as reviewed by me-bilateral pleural effusion Data Review: Labs reviewed from today include CBC, CMP, and ionized calcium which are remarkable for white blood cell count 13.2, hemoglobin 7.1, sodium 131, carbon dioxide 16, calcium 6.4, ionized calcium 4.2, albumin 1.4, potassium 3.3. Blood cultures are positive for gram-positive bacilli, tissue cultures positive for gram-negative bacilli DVT prophylaxis: Lovenox Poor overall prognosis Anticipated discharge date: Pending Clinical Course Anticipated discharge place: Pending Clinical Course This dictation was prepared using [employer] voice recognition software. Though every attempt is made to correct errors during dictation some may still exist. Objective - Vital Signs Vital signs: Vital Signs Temp 94.7 F L 07/09/23 14:04 Pulse 75 07/09/23 14:04 Resp 24 07/09/23 14:04 BP 119/56 07/09/23 13:44 Pulse Ox 100 07/09/23 13:44 FiO2 35 07/09/23 12:00 Intake & Output 07/08/23 07/09/23 07/09/23 18:59 06:59 18:59 Intake Total 3989.039 2486.466 1481.838 Output Total 925 1470 1870 Balance 3064.039 1016.466 -388.162 Weight 140.5 kg Intake: IV 1200 900 Piperacillin-Tazobactam 3 100 .375 gm In Sodium Chloride 0.9% 100 ml @ 25 mls/hr IVPB Q8HR [facility] Rx# :[id number] Sodium Chloride 0.9% 1, 1200 800 000 ml @ 100 mls/hr IV . Q10H [facility] Rx#:[id number] Intake, IV Titration 3939.039 966.466 251.838 Amount Amiodarone 360 mg In 241.221 Dextrose 5% in Water 200 ml @ 1 MG/MIN 33.333 mls/ hr IV .Q6H [facility] Rx#: [id number] Amiodarone 360 mg In 132 33 Dextrose 5% in Water 200 ml @ 1 MG/MIN 33.333 mls/ hr IV .Q6H [facility] Rx#: [id number] Amiodarone 360 mg In 156.11 24.444 Dextrose 5% in Water 200 ml @ 1 MG/MIN 33.333 mls/ hr IV .Q6H [facility] [place] Rx#: [id number] Anidulafungin 100 mg In 100 Sodium Chloride 0.9% 100 ml @ 84 mls/hr IVPB HS [facility] Rx#:[id number] Magnesium Sulfate-D5w Pmx 33 1 gm In Dextrose/Water 1 100ml.bag @ 100 mls/hr IVPB Q1H [facility] Rx#: [id number] Norepinephrine 4 mg In 870.876 175.410 27.394 Sodium Chloride 0.9% 250 ml @ 0.05 MCG/KG/MIN 25. 923 mls/hr IV .Q9H48M [facility] Rx#:[id number] Piperacillin-Tazobactam 3 400 .375 gm In Sodium Chloride 0.9% 100 ml @ 25 mls/hr IVPB Q8HR [facility] Rx# :[id number] Sodium Chloride 0.9% 1, 1350 000 ml @ 100 mls/hr IV . Q10H [facility] Rx#:[id number] Vancomycin 2,000 mg In 500 Sodium Chloride 0.9% 500 ml 500 ml @ 167 mls/hr IVPB Q12H [facility] [place] Rx#: [id number] Vasopressin 60 unit In 16.142 108.324 Sodium Chloride 0.9% 150 ml @ 0.03 UNITS/MIN 4.59 mls/hr IV .Q24H [facility] Rx#: [id number] propofoL 1,000 mg In 395.8 393.622 200 Empty Bag 1 bag @ 15 MCG/ KG/MIN 12.247 mls/hr IV . Q8H10M [facility] Rx#:[id number] Tube Feeding 50 230 240 Blood Product 0 Unit 0 Other 90 90 Output: Urine 925 1470 1870 Other: Voiding Method Indwelling Catheter Indwelling Catheter Indwelling Catheter # Bowel Movements 1 ABP, PAP, CO, CI - Last Documented Arterial Blood Pressure 112/55 - Labs CBC & Chem 7: 07/09/23 05:36 07/09/23 10:50 Labs: Abnormal Lab Results - Last 24 Hours (Table) 07/07/23 07/08/23 07/09/23 Range/Units 21:54 23:51 04:35 WBC (3.8-10.6) k/uL RBC (4.30-5.90) m/uL Hgb (13.0-17.5) gm/dL Hct (39.0-53.0) % RDW (11.5-15.5) % Neutrophils # (1.3-7.7) k/uL ABG pCO2 (35-45) mmHg ABG pO2 (83-108) mmHg ABG HCO3 (21-25) mmol/L ABG O2 Saturation (94-97) % Sodium 131 L (137-145) mmol/L Potassium 3.2 L (3.5-5.1) mmol/L Chloride 108 H (98-107) mmol/L Carbon Dioxide 16 L (22-30) mmol/L Glucose 136 H (74-99) mg/dL POC Glucose (mg/dL) 141 H (70-110) mg/dL Calcium 6.4 L* (8.4-10.2) mg/dL Ionized Calcium Ramila (4.5-5.3) mg/dL Total Protein 3.7 L (6.3-8.2) g/dL Albumin 1.4 L (3.5-5.0) g/dL Crossmatch See Detail 07/09/23 07/09/23 07/09/23 Range/Units 05:30 05:36 05:38 WBC 13.2 H (3.8-10.6) k/uL RBC 2.62 L (4.30-5.90) m/uL Hgb 7.1 L D (13.0-17.5) gm/dL Hct 22.8 L (39.0-53.0) % RDW 17.4 H (11.5-15.5) % Neutrophils # 11.2 H (1.3-7.7) k/uL ABG pCO2 32 L (35-45) mmHg ABG pO2 170 H (83-108) mmHg ABG HCO3 20 L (21-25) mmol/L ABG O2 Saturation 98.9 H (94-97) % Sodium (137-145) mmol/L Potassium (3.5-5.1) mmol/L Chloride (98-107) mmol/L Carbon Dioxide (22-30) mmol/L Glucose (74-99) mg/dL POC Glucose (mg/dL) (70-110) mg/dL Calcium (8.4-10.2) mg/dL Ionized Calcium Ramila 4.2 L (4.5-5.3) mg/dL Total Protein (6.3-8.2) g/dL Albumin (3.5-5.0) g/dL Crossmatch 07/09/23 07/09/23 07/09/23 Range/Units 05:55 10:47 10:50 WBC (3.8-10.6) k/uL RBC (4.30-5.90) m/uL Hgb (13.0-17.5) gm/dL Hct (39.0-53.0) % RDW (11.5-15.5) % Neutrophils # (1.3-7.7) k/uL ABG pCO2 (35-45) mmHg ABG pO2 (83-108) mmHg ABG HCO3 (21-25) mmol/L ABG O2 Saturation (94-97) % Sodium (137-145) mmol/L Potassium 3.3 L (3.5-5.1) mmol/L Chloride (98-107) mmol/L Carbon Dioxide (22-30) mmol/L Glucose (74-99) mg/dL POC Glucose (mg/dL) 137 H 202 H (70-110) mg/dL Calcium (8.4-10.2) mg/dL Ionized Calcium Ramila (4.5-5.3) mg/dL Total Protein (6.3-8.2) g/dL Albumin (3.5-5.0) g/dL Crossmatch Microbiology - Last 24 Hours (Table) 07/07/23 14:14 Blood Culture Gram Stain - Preliminary Blood Blood Culture - Preliminary 07/07/23 09:04 Gram Stain - Preliminary Back Tissue Culture - Preliminary Gram Neg Bacilli 07/07/23 14:14 Blood Culture Gram Stain - Preliminary Blood Blood Culture - Preliminary 07/08/23 00:30 Gram Stain - Preliminary Sputum
--- NOTE | 2023-07-09 14:43 | P.PN ---
Subjective Progress Note Date: 07/09/23 CHIEF COMPLAINT: Sacral decubitus ulcer HISTORY OF PRESENT ILLNESS: Patient postop day #2 status post wide excisional debridement of necrotic sacral decubitus ulcer. Patient currently remains in the ICU and intubated. Patient remains on vasopressin, propofol and amiodarone. He is off the Levophed. Patient did have a low-grade temp of 100.5 last night. White count has improved from 25-13.2. Hemoglobin dropped from 10-7.1 sodium 131 potassium 3.3 creatinine 0.88 albumin 1.4. Patient is receiving 1 unit of blood. PHYSICAL EXAM: VITAL SIGNS: Reviewed. GENERAL: Intubated and sedated ABDOMEN: Soft. Nondistended. Nontender. ASSESSMENT: 1. Severe Necrotic sacral decubitus ulcer status post debridement 2. Sepsis PLAN: -Patient may eventually need a diverting colostomy when medically stable -Patient may need comfort care measures -Continue antibiotics -Consult wound care service -Continue ICU management Physician Prosecuting Attorney note has been reviewed by physician. Signing provider agrees with the documented findings, assessment, and plan of care. Objective - Vital Signs Vital signs: Vital Signs Temp 97.3 F L 07/09/23 11:45 Pulse 69 07/09/23 12:00 Resp 24 07/09/23 12:00 BP 91/66 07/09/23 12:00 Pulse Ox 100 07/09/23 12:00 FiO2 35 07/09/23 12:00 Intake & Output 07/08/23 07/09/23 07/09/23 18:59 06:59 18:59 Intake Total 3989.039 2486.466 1091.838 Output Total 925 1470 1220 Balance 3064.039 1016.466 -128.162 Weight 140.5 kg Intake: IV 1200 700 Piperacillin-Tazobactam 3 100 .375 gm In Sodium Chloride 0.9% 100 ml @ 25 mls/hr IVPB Q8HR [facility] Rx# :[id number] Sodium Chloride 0.9% 1, 1200 600 000 ml @ 100 mls/hr IV . Q10H [facility] Rx#:[id number] Intake, IV Titration 3939.039 966.466 151.838 Amount Amiodarone 360 mg In 241.221 Dextrose 5% in Water 200 ml @ 1 MG/MIN 33.333 mls/ hr IV .Q6H [facility] Rx#: [id number] Amiodarone 360 mg In 132 33 Dextrose 5% in Water 200 ml @ 1 MG/MIN 33.333 mls/ hr IV .Q6H [facility] Rx#: [id number] Amiodarone 360 mg In 156.11 24.444 Dextrose 5% in Water 200 ml @ 1 MG/MIN 33.333 mls/ hr IV .Q6H [facility] Rx#: [id number] Anidulafungin 100 mg In 100 Sodium Chloride 0.9% 100 ml @ 84 mls/hr IVPB HS [facility] Rx#:[id number] Magnesium Sulfate-D5w Pmx 33 1 gm In Dextrose/Water 1 100ml.bag @ 100 mls/hr IVPB Q1H [facility] Rx#: [id number] Norepinephrine 4 mg In 870.876 175.410 27.394 Sodium Chloride 0.9% 250 ml @ 0.05 MCG/KG/MIN 25. 923 mls/hr IV .Q9H48M [facility] Rx#:[id number] Piperacillin-Tazobactam 3 400 .375 gm In Sodium Chloride 0.9% 100 ml @ 25 mls/hr IVPB Q8HR [facility] Rx# :[id number] Sodium Chloride 0.9% 1, 1350 000 ml @ 100 mls/hr IV . Q10H [facility] Rx#:[id number] Vancomycin 2,000 mg In 500 Sodium Chloride 0.9% 500 ml 500 ml @ 167 mls/hr IVPB Q12H [facility] Rx#: [id number] Vasopressin 60 unit In 16.142 108.324 Sodium Chloride 0.9% 150 ml @ 0.03 UNITS/MIN 4.59 mls/hr IV .Q24H [facility] Rx#: [id number] propofoL 1,000 mg In 395.8 393.622 100 Empty Bag 1 bag @ 15 MCG/ KG/MIN 12.247 mls/hr IV . Q8H10M [facility] Rx#:[id number] Tube Feeding 50 230 180 Other 90 60 Output: Urine 925 1470 1220 Other: Voiding Method Indwelling Catheter Indwelling Catheter Indwelling Catheter # Bowel Movements 1 ABP, PAP, CO, CI - Last Documented Arterial Blood Pressure 112/54 - Labs CBC & Chem 7: 07/10/23 05:26 07/10/23 05:26 Labs: Abnormal Lab Results - Last 24 Hours (Table) 07/07/23 07/08/23 07/09/23 Range/Units 21:54 23:51 04:35 WBC (3.8-10.6) k/uL RBC (4.30-5.90) m/uL Hgb (13.0-17.5) gm/dL Hct (39.0-53.0) % RDW (11.5-15.5) % Neutrophils # (1.3-7.7) k/uL ABG pCO2 (35-45) mmHg ABG pO2 (83-108) mmHg ABG HCO3 (21-25) mmol/L ABG O2 Saturation (94-97) % Sodium 131 L (137-145) mmol/L Potassium 3.2 L (3.5-5.1) mmol/L Chloride 108 H (98-107) mmol/L Carbon Dioxide 16 L (22-30) mmol/L Glucose 136 H (74-99) mg/dL POC Glucose (mg/dL) 141 H (70-110) mg/dL Calcium 6.4 L* (8.4-10.2) mg/dL Ionized Calcium Ramila (4.5-5.3) mg/dL Total Protein 3.7 L (6.3-8.2) g/dL Albumin 1.4 L (3.5-5.0) g/dL Crossmatch See Detail 07/09/23 07/09/23 07/09/23 Range/Units 05:30 05:36 05:38 WBC 13.2 H (3.8-10.6) k/uL RBC 2.62 L (4.30-5.90) m/uL Hgb 7.1 L D (13.0-17.5) gm/dL Hct 22.8 L (39.0-53.0) % RDW 17.4 H (11.5-15.5) % Neutrophils # 11.2 H (1.3-7.7) k/uL ABG pCO2 32 L (35-45) mmHg ABG pO2 170 H (83-108) mmHg ABG HCO3 20 L (21-25) mmol/L ABG O2 Saturation 98.9 H (94-97) % Sodium (137-145) mmol/L Potassium (3.5-5.1) mmol/L Chloride (98-107) mmol/L Carbon Dioxide (22-30) mmol/L Glucose (74-99) mg/dL POC Glucose (mg/dL) (70-110) mg/dL Calcium (8.4-10.2) mg/dL Ionized Calcium Ramila 4.2 L (4.5-5.3) mg/dL Total Protein (6.3-8.2) g/dL Albumin (3.5-5.0) g/dL Crossmatch 07/09/23 07/09/23 07/09/23 Range/Units 05:55 10:47 10:50 WBC (3.8-10.6) k/uL RBC (4.30-5.90) m/uL Hgb (13.0-17.5) gm/dL Hct (39.0-53.0) % RDW (11.5-15.5) % Neutrophils # (1.3-7.7) k/uL ABG pCO2 (35-45) mmHg ABG pO2 (83-108) mmHg ABG HCO3 (21-25) mmol/L ABG O2 Saturation (94-97) % Sodium (137-145) mmol/L Potassium 3.3 L (3.5-5.1) mmol/L Chloride (98-107) mmol/L Carbon Dioxide (22-30) mmol/L Glucose (74-99) mg/dL POC Glucose (mg/dL) 137 H 202 H (70-110) mg/dL Calcium (8.4-10.2) mg/dL Ionized Calcium Ramila (4.5-5.3) mg/dL Total Protein (6.3-8.2) g/dL Albumin (3.5-5.0) g/dL Crossmatch Microbiology - Last 24 Hours (Table) 07/07/23 14:14 Blood Culture Gram Stain - Preliminary Blood Blood Culture - Preliminary 07/07/23 09:04 Gram Stain - Preliminary Back Tissue Culture - Preliminary Gram Neg Bacilli 07/07/23 14:14 Blood Culture Gram Stain - Preliminary Blood Blood Culture - Preliminary 07/08/23 00:30 Gram Stain - Preliminary Sputum Assessment and Plan Plan: Patient has a very large decubitus ulcer measuring 16 x 18". Patient will unlikely recover from this significant soft tissue injury. He continues to do poorly. Patient may benefit from comfort care measures.
--- NOTE | 2023-07-09 15:30 | P.GSCN ---
History of Present Illness Consult date: 07/09/23 Reason for Consult: Extensive decubitus of the sacral area extending to the low back and both buttocks. Requesting physician: Kady Moon History of present illness: This 63-year-old gentleman was admitted with progressive weakness at home with chest congestion. He had been out of his medications for a week. His generalized weakness made him unable to obtain his medications. He apparently has mental confusion on admission. Comorbidities include A. fib, hypertension, COPD, ongoing cigarette smoking and morbid obesity Patient is currently on vasopressors and ventilated. Past Medical History Past Medical History: Atrial Fibrillation, Atrial Flutter, COPD, GI Bleed, Hypertension, Vascular Disorder Additional Past Medical History / Comment(s): hx Bilateral lower leg edema- "retains water", History of Any Multi-Drug Resistant Organisms: MRSA Year Discovered:: 8 YEARS AGO-treated in [facility] MDRO Source:: LEFT ABD Past Surgical History: Bowel Resection, EPS, Heart Catheterization Additional Past Surgical History / Comment(s): Bowel resection d/t a fistula, colonoscopy, EPS and cardioversion, Past Anesthesia/Blood Transfusion Reactions: No Reported Reaction Past Psychological History: Anxiety, Depression Additional Psychological History / Comment(s): Single but lives with his girlfriend. No children. 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 Is an active tobacco smoker. Relates he drinks alcohol but has no difficulties with alcohol. No current recreational drug use and has no history of injection drug use. Pet dog in the home which is a pitbull, it is a puppy. No experience. No international travel Smoking Status: Current every day smoker Past Alcohol Use History: Heavy Additional Past Alcohol Use History / Comment(s): Pt started smoking in 1974 and is smoking 5 cig per day. Past Drug Use History: None Reported - Past Family History Mother Family Medical History: Cancer Additional Family Medical History / Comment(s): breast cancer. Father Family Medical History: Cancer Additional Family Medical History / Comment(s): . Medications and Allergies Home Medications Medication Instructions Recorded Confirmed Type Atorvastatin [Lipitor] 20 mg PO DAILY #30 tab 04/29/23 07/07/23 Rx Furosemide [Lasix] 20 mg PO DAILY #14 tab 04/29/23 07/07/23 Rx Spironolactone [Aldactone] 25 mg PO DAILY #14 tab 04/29/23 07/07/23 Rx lisinopriL [Zestril] 5 mg PO HS #14 tab 04/30/23 07/07/23 Rx Metoprolol Tartrate [Lopressor] 12.5 mg PO BID 05/08/23 07/07/23 History Allergies Allergy/AdvReac Type Severity Reaction Status Date / Time No Known Allergies Allergy Verified 07/07/23 15:58 Surgical - Exam Osteopathic Statement: *. No significant issues noted on an osteopathic structural exam other than those noted in the History and Physical/Consult. Vital Signs Temp Pulse Resp BP Pulse Ox 97.6 F 113 H 18 83/37 91 L 07/07/23 12:35 07/07/23 12:35 07/07/23 12:35 07/07/23 12:35 07/07/23 12:35 - General Intubated and sedated no distress, obese An area is exposed over his sacrum and extending laterally over both buttocks and low back and with an inch of his anal opening. The dimensions are about 45 x 40 cm. The fascias and part of the bony surface of the sacrum are exposed. Muscular structures are exposed. The wound is fairly clean at this time other than related to the stooling that the patient is doing. Results - Labs 07/09/23 05:36 07/09/23 10:50 Abnormal Lab Results - Last 24 Hours (Table) 07/07/23 07/08/23 07/09/23 Range/Units 21:54 23:51 04:35 WBC (3.8-10.6) k/uL RBC (4.30-5.90) m/uL Hgb (13.0-17.5) gm/dL Hct (39.0-53.0) % RDW (11.5-15.5) % Neutrophils # (1.3-7.7) k/uL ABG pCO2 (35-45) mmHg ABG pO2 (83-108) mmHg ABG HCO3 (21-25) mmol/L ABG O2 Saturation (94-97) % Sodium 131 L (137-145) mmol/L Potassium 3.2 L (3.5-5.1) mmol/L Chloride 108 H (98-107) mmol/L Carbon Dioxide 16 L (22-30) mmol/L Glucose 136 H (74-99) mg/dL POC Glucose (mg/dL) 141 H (70-110) mg/dL Calcium 6.4 L* (8.4-10.2) mg/dL Ionized Calcium Ramila (4.5-5.3) mg/dL Total Protein 3.7 L (6.3-8.2) g/dL Albumin 1.4 L (3.5-5.0) g/dL Crossmatch See Detail 07/09/23 07/09/23 07/09/23 Range/Units 05:30 05:36 05:38 WBC 13.2 H (3.8-10.6) k/uL RBC 2.62 L (4.30-5.90) m/uL Hgb 7.1 L D (13.0-17.5) gm/dL Hct 22.8 L (39.0-53.0) % RDW 17.4 H (11.5-15.5) % Neutrophils # 11.2 H (1.3-7.7) k/uL ABG pCO2 32 L (35-45) mmHg ABG pO2 170 H (83-108) mmHg ABG HCO3 20 L (21-25) mmol/L ABG O2 Saturation 98.9 H (94-97) % Sodium (137-145) mmol/L Potassium (3.5-5.1) mmol/L Chloride (98-107) mmol/L Carbon Dioxide (22-30) mmol/L Glucose (74-99) mg/dL POC Glucose (mg/dL) (70-110) mg/dL Calcium (8.4-10.2) mg/dL Ionized Calcium Ramila 4.2 L (4.5-5.3) mg/dL Total Protein (6.3-8.2) g/dL Albumin (3.5-5.0) g/dL Crossmatch 07/09/23 07/09/23 07/09/23 Range/Units 05:55 10:47 10:50 WBC (3.8-10.6) k/uL RBC (4.30-5.90) m/uL Hgb (13.0-17.5) gm/dL Hct (39.0-53.0) % RDW (11.5-15.5) % Neutrophils # (1.3-7.7) k/uL ABG pCO2 (35-45) mmHg ABG pO2 (83-108) mmHg ABG HCO3 (21-25) mmol/L ABG O2 Saturation (94-97) % Sodium (137-145) mmol/L Potassium 3.3 L (3.5-5.1) mmol/L Chloride (98-107) mmol/L Carbon Dioxide (22-30) mmol/L Glucose (74-99) mg/dL POC Glucose (mg/dL) 137 H 202 H (70-110) mg/dL Calcium (8.4-10.2) mg/dL Ionized Calcium Ramila (4.5-5.3) mg/dL Total Protein (6.3-8.2) g/dL Albumin (3.5-5.0) g/dL Crossmatch Microbiology - Last 24 Hours (Table) 07/08/23 01:53 Urine Culture - Final Urine,Voided 07/07/23 14:14 Blood Culture Gram Stain - Preliminary Blood Blood Culture - Preliminary 07/07/23 09:04 Gram Stain - Preliminary Back Tissue Culture - Preliminary Gram Neg Bacilli 07/07/23 14:14 Blood Culture Gram Stain - Preliminary Blood Blood Culture - Preliminary 07/08/23 00:30 Gram Stain - Preliminary Sputum Diabetes panel 07/09/23 07/09/23 Range/Units 04:35 10:50 Sodium 131 L (137-145) mmol/L Potassium 3.2 L 3.3 L (3.5-5.1) mmol/L Chloride 108 H (98-107) mmol/L Carbon Dioxide 16 L (22-30) mmol/L BUN 18 (9-20) mg/dL Creatinine 0.88 (0.66-1.25) mg/dL Glucose 136 H (74-99) mg/dL Calcium 6.4 L* (8.4-10.2) mg/dL AST 17 (17-59) U/L ALT 8 (4-49) U/L Alkaline Phosphatase 78 (38-126) U/L Total Protein 3.7 L (6.3-8.2) g/dL Albumin 1.4 L (3.5-5.0) g/dL Calcium panel 07/09/23 07/09/23 Range/Units 04:35 05:30 Calcium 6.4 L* (8.4-10.2) mg/dL Ionized Calcium Ramila 4.2 L (4.5-5.3) mg/dL Phosphorus 4.1 (2.5-4.5) mg/dL Albumin 1.4 L (3.5-5.0) g/dL Pituitary panel 07/09/23 07/09/23 Range/Units 04:35 10:50 Sodium 131 L (137-145) mmol/L Potassium 3.2 L 3.3 L (3.5-5.1) mmol/L Chloride 108 H (98-107) mmol/L Carbon Dioxide 16 L (22-30) mmol/L BUN 18 (9-20) mg/dL Creatinine 0.88 (0.66-1.25) mg/dL Glucose 136 H (74-99) mg/dL Calcium 6.4 L* (8.4-10.2) mg/dL Adrenal panel 07/09/23 07/09/23 Range/Units 04:35 10:50 Sodium 131 L (137-145) mmol/L Potassium 3.2 L 3.3 L (3.5-5.1) mmol/L Chloride 108 H (98-107) mmol/L Carbon Dioxide 16 L (22-30) mmol/L BUN 18 (9-20) mg/dL Creatinine 0.88 (0.66-1.25) mg/dL Glucose 136 H (74-99) mg/dL Calcium 6.4 L* (8.4-10.2) mg/dL Total Bilirubin 0.3 (0.2-1.3) mg/dL AST 17 (17-59) U/L ALT 8 (4-49) U/L Alkaline Phosphatase 78 (38-126) U/L Total Protein 3.7 L (6.3-8.2) g/dL Albumin 1.4 L (3.5-5.0) g/dL Assessment and Plan (1) Diarrhea Current Visit: Yes Status: Acute Code(s): R19.7 - DIARRHEA, UNSPECIFIED SNOMED Code(s): 65403535 (2) Infected decubitus ulcer Current Visit: Yes Status: Acute Code(s): L89.90 - PRESSURE ULCER OF UNSPECIFIED SITE, UNSPECIFIED STAGE; L08.9 - LOCAL INFECTION OF THE SKIN AND SUBCUTANEOUS TISSUE, UNSP SNOMED Code(s): 209197937 (3) Sepsis Current Visit: Yes Status: Acute Code(s): A41.9 - SEPSIS, UNSPECIFIED ORGANISM SNOMED Code(s): 65722323 (4) Atrial fibrillation with RVR Current Visit: No Status: Acute Code(s): I48.91 - UNSPECIFIED ATRIAL FIBRILLATION SNOMED Code(s): 416044195202474 (5) Congestive heart failure Current Visit: No Status: Acute Code(s): I50.9 - HEART FAILURE, UNSPECIFIED SNOMED Code(s): 06219766 (6) Hypotension Current Visit: No Status: Acute Code(s): I95.9 - HYPOTENSION, UNSPECIFIED SNOMED Code(s): 12194015 (7) Weakness Current Visit: No Status: Acute Code(s): R53.1 - WEAKNESS SNOMED Code(s): 67793061 Plan: I have several recommendations based on the numerous comorbidities and the extent of the ulceration on the patient's backside. Given the extent of his wounds I do feel that the definitive treatment is beyond the scope of our institution and would recommend a tertiary referral at such point as he is stabilized. Given the proximity of his anus to the wound I fillets unlikely that this would ever heal without a colostomy. Given the need to change his dressings fairly frequently based on stooling at this time I would recommend wet-to-dry, watching closely for any maceration.
[2023-07-09 18:26] LABS: Glucose,Whole Blood 226 mg/dL (70-110)
[2023-07-09] MEDS: ANIDULAFUNGIN 100 MG in SODIUM CHLORIDE 0.9% 100 ML IVPB SCH (20:46)
[2023-07-09 23:20] LABS: Glucose,Whole Blood 228 mg/dL (70-110)
[2023-07-09] MEDS ORDERED: DEXTROSE 50% SYRINGE 50 ML IVP PRN ×2 (23:22)
[2023-07-09] MEDS: INSULIN ASPART (NovoLOG) 100 UNIT/ML VIAL SQ SCH (23:32)
[2023-07-10] MEDS: IPRATROPIUM-ALBUTEROL 3 ML NEB INHALATION SCH ×7 (00:08→23:52)
[2023-07-10] MEDS: fentaNYL (PF) 50 MCG/ML 2 ML AMP IVP PRN ×2 (00:32→17:29)
[2023-07-10] MEDS ORDERED: VANCOMYCIN TROUGH DUE 1 EACH MISC MISCELLANE ONE (01:00)
[2023-07-10] MEDS: AMIODARONE 450 MG in DEXTROSE 5% IN WATER 250 ML IV SCH ×2 (01:45)
[2023-07-10 02:46] LABS: African American GFR (CKD) >90 (>60 ml/min/1.73 sqM); Non-African American GFR(CKD) >90 (>60 ml/min/1.73 sqM); Potassium 3.3 mmol/L (3.5-5.1)
[2023-07-10] MEDS: POTASSIUM BICARBONATE/CIT AC 20 MEQ TABLET.EFF NG-TUBE SCH ×2 (03:03→04:17)
[2023-07-10] MEDS: VASOPRESSIN 60 UNIT in SODIUM CHLORIDE 0.9% 150 ML IV SCH (05:30)
[2023-07-10 05:33] LABS: Glucose,Whole Blood 226 mg/dL (70-110)
[2023-07-10 05:38] LABS: Anisocytosis Slight; HCT 23.6 % (39.0-53.0); HGB 8.1 gm/dL (13.0-17.5); Hypochromasia Moderate; MCH 28.9 pg (25.0-35.0); MCHC 34.2 g/dL (31.0-37.0); MCV 84.4 fL (80.0-100.0); Mean Platelet Volume 8.2; Platelet Count 169 k/uL (150-450); Poikilocytosis Slight; RDW 17.2 % (11.5-15.5); WBC 12.4 k/uL (3.8-10.6)
[2023-07-10 05:46] LABS: INR 1.1 (<1.2); Prothrombin Time 11.5 sec (10.0-12.5)
[2023-07-10] MEDS: INSULIN ASPART (NovoLOG) 100 UNIT/ML VIAL SQ SCH ×3 (05:48→17:49)
[2023-07-10 06:05] LABS: Ionized Calcium 4.3 mg/dL (4.5-5.3)
[2023-07-10 06:11] LABS: ABG Base Excess -0.7 mmol/L; ABG HCO3 23 mmol/L (21-25); ABG Oxygen Saturation 98.8 % (94-97); ABG PCO2 30 mmHg (35-45); ABG PH 7.49 (7.35-7.45); ABG PO2 109 mmHg (83-108); ABG TCO2 24 mmol/L (19-24); Allen Test Performed? Yes
[2023-07-10 06:46] LABS: ALT 11 U/L (4-49); AST 23 U/L (17-59); African American GFR (CKD) >90 (>60 ml/min/1.73 sqM); Albumin 1.7 g/dL (3.5-5.0); Alkaline Phosphatase 103 U/L (38-126); Anion Gap 7 mmol/L; Blood Urea Nitrogen 17 mg/dL (9-20); Calcium 6.9 mg/dL (8.4-10.2); Carbon Dioxide 20 mmol/L (22-30); Chloride 104 mmol/L (98-107); Glucose 177 mg/dL (74-99); Magnesium 1.6 mg/dL (1.6-2.3); Non-African American GFR(CKD) >90 (>60 ml/min/1.73 sqM); Phosphorus 3.3 mg/dL (2.5-4.5); Sodium 131 mmol/L (137-145); Total Bilirubin 0.4 mg/dL (0.2-1.3); Total Protein 4.3 g/dL (6.3-8.2)
[2023-07-10] MEDS: LACTOBACILLUS ACIDOPHILUS/PECT 1 EACH CAPSULE PO SCH ×2 (07:03→17:26)
[2023-07-10] MEDS: SODIUM CHLORIDE 0.9% 1,000 ML IV SCH ×2 (07:47→17:25)
--- NOTE | 2023-07-10 08:18 | XR ---
EXAMINATION TYPE: XR chest 1V portable DATE OF EXAM: 07/10/2023 5:21 AM CLINICAL INDICATION:Male, 63 years old with history of Tube placement; COMPARISON: Chest radiographs from 07/09/2023. TECHNIQUE: XR chest 1V portable Frontal view of the chest. FINDINGS: Lungs/Pleura: There is no evidence of pleural effusion, focal consolidation, or pneumothorax. Pulmonary vascularity: Unremarkable. Heart/mediastinum: Cardiomediastinal silhouette is unremarkable. Atherosclerotic calcifications are seen in the aorta. Single-lead cardiac conduction device overlying the left hemithorax with lead proj ecting over the right ventricle. Musculoskeletal: No acute osseous pathology. Other findings: None Lines/Tubes: Endotracheal tube with distal tip 4.7 cm above the omega. Nasogastric tube with its distal tip and side-port projecting under the diaphragm. IMPRESSION: Low lung volumes, stable support tubes.
[2023-07-10] MEDS: PIPERACILLIN-TAZOBACTAM 3.375 GM in SODIUM CHLORIDE 0.9% 100 ML IVPB SCH ×3 (08:31→23:22)
[2023-07-10] MEDS: PANTOPRAZOLE 40 MG/10 ML VIAL IV SCH (08:31)
[2023-07-10] MEDS: CHLORHEXIDINE GLUCONATE 15 ML CUP MUCOUS MEM SCH ×2 (08:32→21:33)
[2023-07-10] MEDS: THIAMINE 100 MG TAB PO SCH (08:32)
[2023-07-10] MEDS: ATORVASTATIN 20 MG TAB PO SCH (08:32)
[2023-07-10] MEDS: ENOXAPARIN 40 MG/0.4 ML SYRINGE SQ SCH (08:32)
[2023-07-10] MEDS: NYSTATIN 100,000 UNIT/GM POWD 15 GM TOPICAL SCH ×3 (08:37→21:34)
[2023-07-10] MEDS: NICOTINE 14MG/24HR PATCH TRANSDERM SCH (09:02)
--- NOTE | 2023-07-10 09:25 | P.PN ---
Subjective Progress Note Date: 07/10/23 The patient is a 63-year-old male with multiple comorbid conditions who presented to the emergency room with hypotension and elevated heart rate. He was found to be septic, likely secondary to infected lumbar and sacral decubitus ulcers. He has an extensive cardiac history and has been completely immobile over the last several months. He has not been following up with his primary care provider or potash flaker. Cardiology has been consulted for elevated troponin, however the patient also developed A. fib with RVR. He was given an amiodarone bolus followed by continuous drip. Over the last 24 hours the patient has since become bradycardic in the low 50s. Nursing staff has paused amiodarone infusion. He has now been weaned off of Levophed but remains on shock dose vasopressin. GENERAL: Ill-appearing, obese male and in no acute distress. Currently sedated on ventilator NECK: Supple without JVD or thyromegaly. LUNGS: Breath sounds rhonchorous to auscultation bilaterally. Respiration equal and unlabored. HEART: Irregular rate and rhythm without murmurs, rubs or gallops. S1 and S2 heard. EXTREMITIES: Normal range of motion, mild bilateral edema. Chronic discoloration. TELEMETRY: Rate controlled atrial fibrillation in the low 60s currently LABS: W BC 13.2, hemoglobin 10.1, hematocrit 22.8, platelet 221, sodium 131, potassium 3.2, BUN 18, creatinine 0.88, AST 17, ALT 8 IMPRESSION: Septicemia/septic shock Infected lumbar and sacral decubitus ulcers, status post debridement Elevated troponins, secondary to septic shock Acute hypoxic respiratory failure A. fib with RVR Anemia, anticoagulation currently on hold COPD PLAN: Agree with holding IV amiodarone at this time, consider 0.25 infusion if he continues to have fluctuations in heart rate Transition to oral if cleared by surgery Start anticoagulation when cleared by surgery A. fib management to be based upon clinical course I am dictating on behalf of Dr Carlos Howe's history/physical and assessment/plan. Objective - Vital Signs Vital signs: Vital Signs Temp 96 F L 07/10/23 04:00 Pulse 65 07/10/23 09:00 Resp 24 07/10/23 09:00 BP 112/80 07/10/23 08:00 Pulse Ox 100 07/10/23 09:00 FiO2 35 07/10/23 08:00 Intake & Output 07/09/23 07/10/23 07/10/23 18:59 06:59 18:59 Intake Total 2510.359 2770.136 663.835 Output Total 2891954 95 Balance -384.641 815.136 568.835 Weight 147.6 kg Intake: IV 1400 1400 400 Anidulafungin 100 mg In 100 Sodium Chloride 0.9% 100 ml @ 84 mls/hr IVPB HS [facility] Rx#:[id number] Piperacillin-Tazobactam 3 200 100 100 .375 gm In Sodium Chloride 0.9% 100 ml @ 25 mls/hr IVPB Q8HR [facility] Rx# :[id number] Sodium Chloride 0.9% 1, 1200 1200 300 000 ml @ 100 mls/hr IV . Q10H [facility] Rx#:[id number] Intake, IV Titration 350.359 832.136 95.835 Amount Amiodarone 360 mg In 24.444 Dextrose 5% in Water 200 ml @ 1 MG/MIN 33.333 mls/ hr IV .Q6H [facility] Rx#: [id number] Amiodarone 450 mg In 242.227 95.835 Dextrose 5% in Water 250 ml @ 0.5 MG/MIN 16.667 mls/hr IV .Q15H [facility] Rx#: [id number] Norepinephrine 4 mg In 27.394 47.097 Sodium Chloride 0.9% 250 ml @ 0.05 MCG/KG/MIN 25. 923 mls/hr IV .Q9H48M [facility] Rx#:[id number] Vasopressin 60 unit In 153.000 Sodium Chloride 0.9% 150 ml @ 0.03 UNITS/MIN 4.59 mls/hr IV .Q24H [facility] Rx#: [id number] propofoL 1,000 mg In 298.521 389.812 Empty Bag 1 bag @ 15 MCG/ KG/MIN 12.247 mls/hr IV . Q8H10M [facility] Rx#:[id number] Tube Feeding 360 448 138 Blood Product 310 Rc As-1 Unit 310 [id number] Other 90 90 30 Output: Urine 2891954 95 Other: Voiding Method Indwelling Catheter Indwelling Catheter Indwelling Catheter ABP, PAP, CO, CI - Last Documented Arterial Blood Pressure 104/57 - Labs CBC & Chem 7: 07/10/23 05:26 07/10/23 05:26 Labs: Abnormal Lab Results - Last 24 Hours (Table) 07/07/23 07/09/23 07/09/23 Range/Units 21:54 10:47 10:50 WBC (3.8-10.6) k/uL RBC (4.30-5.90) m/uL Hgb (13.0-17.5) gm/dL Hct (39.0-53.0) % RDW (11.5-15.5) % ABG pH (7.35-7.45) ABG pCO2 (35-45) mmHg ABG pO2 (83-108) mmHg ABG O2 Saturation (94-97) % Sodium (137-145) mmol/L Potassium 3.3 L (3.5-5.1) mmol/L Carbon Dioxide (22-30) mmol/L Glucose (74-99) mg/dL POC Glucose (mg/dL) 202 H (70-110) mg/dL Calcium (8.4-10.2) mg/dL Ionized Calcium Ramila (4.5-5.3) mg/dL Total Protein (6.3-8.2) g/dL Albumin (3.5-5.0) g/dL Crossmatch See Detail 07/09/23 07/09/23 07/09/23 Range/Units 18:24 18:34 23:18 WBC (3.8-10.6) k/uL RBC (4.30-5.90) m/uL Hgb (13.0-17.5) gm/dL Hct (39.0-53.0) % RDW (11.5-15.5) % ABG pH (7.35-7.45) ABG pCO2 (35-45) mmHg ABG pO2 (83-108) mmHg ABG O2 Saturation (94-97) % Sodium (137-145) mmol/L Potassium 3.0 L (3.5-5.1) mmol/L Carbon Dioxide (22-30) mmol/L Glucose (74-99) mg/dL POC Glucose (mg/dL) 226 H 228 H (70-110) mg/dL Calcium (8.4-10.2) mg/dL Ionized Calcium Ramila (4.5-5.3) mg/dL Total Protein (6.3-8.2) g/dL Albumin (3.5-5.0) g/dL Crossmatch 07/10/23 07/10/23 07/10/23 Range/Units 01:31 05:26 05:26 WBC 12.4 H (3.8-10.6) k/uL RBC 2.80 L (4.30-5.90) m/uL Hgb 8.1 L (13.0-17.5) gm/dL Hct 23.6 L (39.0-53.0) % RDW 17.2 H (11.5-15.5) % ABG pH (7.35-7.45) ABG pCO2 (35-45) mmHg ABG pO2 (83-108) mmHg ABG O2 Saturation (94-97) % Sodium 131 L (137-145) mmol/L Potassium 3.3 L (3.5-5.1) mmol/L Carbon Dioxide 20 L (22-30) mmol/L Glucose 177 H (74-99) mg/dL POC Glucose (mg/dL) (70-110) mg/dL Calcium 6.9 L (8.4-10.2) mg/dL Ionized Calcium Ramila 4.3 L (4.5-5.3) mg/dL Total Protein 4.3 L (6.3-8.2) g/dL Albumin 1.7 L (3.5-5.0) g/dL Crossmatch 07/10/23 07/10/23 Range/Units 05:31 06:10 WBC (3.8-10.6) k/uL RBC (4.30-5.90) m/uL Hgb (13.0-17.5) gm/dL Hct (39.0-53.0) % RDW (11.5-15.5) % ABG pH 7.49 H (7.35-7.45) ABG pCO2 30 L (35-45) mmHg ABG pO2 109 H (83-108) mmHg ABG O2 Saturation 98.8 H (94-97) % Sodium (137-145) mmol/L Potassium (3.5-5.1) mmol/L Carbon Dioxide (22-30) mmol/L Glucose (74-99) mg/dL POC Glucose (mg/dL) 226 H (70-110) mg/dL Calcium (8.4-10.2) mg/dL Ionized Calcium Ramila (4.5-5.3) mg/dL Total Protein (6.3-8.2) g/dL Albumin (3.5-5.0) g/dL Crossmatch Microbiology - Last 24 Hours (Table) 07/08/23 00:30 Gram Stain - Preliminary Sputum Sputum Culture - Preliminary Beta Hemolytic Strep Group C 07/08/23 01:53 Urine Culture - Final Urine,Voided 07/07/23 14:14 Blood Culture Gram Stain - Preliminary Blood Blood Culture - Preliminary 07/07/23 09:04 Gram Stain - Preliminary Back Tissue Culture - Preliminary Gram Neg Bacilli 07/07/23 14:14 Blood Culture Gram Stain - Preliminary Blood Blood Culture - Preliminary
[2023-07-10 11:20] LABS: Glucose,Whole Blood 219 mg/dL (70-110)
[2023-07-10] MEDS ORDERED: INSULIN DETEMIR (LEVEMIR) 100 UNIT/ML SYR SQ STA (11:44)
--- NOTE | 2023-07-10 12:33 | P.PN ---
Subjective Progress Note Date: 07/10/23 CHIEF COMPLAINT: Sacral decubitus ulcer HISTORY OF PRESENT ILLNESS: Patient postop day #3 status post wide excisional debridement of necrotic sacral decubitus ulcer. Patient currently remains in the ICU and intubated. Patient remains on vasopressin. His sleep schedule for sedation holiday today. Afebrile. WBC down from 13.2-12.4 Hgb 7.1 up to 8.1 after 1 unit of blood. Patient evaluated by wound care service. Appreciate their recommendations. PHYSICAL EXAM: VITAL SIGNS: Reviewed. GENERAL: Intubated and sedated ABDOMEN: Soft. Nondistended. Nontender. ASSESSMENT: 1. Severe Necrotic sacral decubitus ulcer status post debridement 2. Sepsis PLAN: -Recommend comfort care measures -Patient may eventually need a diverting colostomy when medically stable -Continue antibiotics -Continue local wound care -Continue ICU management Physician Automobile Glass Technician note has been reviewed by physician. Signing provider agrees with the documented findings, assessment, and plan of care. Objective - Vital Signs Vital signs: Vital Signs Temp 96 F L 07/10/23 04:00 Pulse 65 07/10/23 09:00 Resp 24 07/10/23 09:00 BP 112/80 07/10/23 08:00 Pulse Ox 100 07/10/23 09:00 FiO2 35 07/10/23 08:00 Intake & Output 07/09/23 07/10/23 07/10/23 18:59 06:59 18:59 Intake Total 2510.359 2770.136 663.835 Output Total 2895 1955 95 Balance -384.641 815.136 568.835 Weight 147.6 kg Intake: IV 1400 1400 400 Anidulafungin 100 mg In 100 Sodium Chloride 0.9% 100 ml @ 84 mls/hr IVPB [facility] Rx#:[id number] Piperacillin-Tazobactam 3 200 100 100 .375 gm In Sodium Chloride 0.9% 100 ml @ 25 mls/hr IVPB Q8HR [facility] Rx# :[id number] Sodium Chloride 0.9% 1, 1200 1200 300 000 ml @ 100 mls/hr IV . Q10H [facility] Rx#:[id number] Intake, IV Titration 350.359 832.136 95.835 Amount Amiodarone 360 mg In 24.444 Dextrose 5% in Water 200 ml @ 1 MG/MIN 33.333 mls/ hr IV .Q6H [facility] Rx#: [id number] Amiodarone 450 mg In 242.227 95.835 Dextrose 5% in Water 250 ml @ 0.5 MG/MIN 16.667 mls/hr IV .Q15H [facility] Rx#: [id number] Norepinephrine 4 mg In 27.394 47.097 Sodium Chloride 0.9% 250 ml @ 0.05 MCG/KG/MIN 25. 923 mls/hr IV .Q9H48M [facility] Rx#:[id number] Vasopressin 60 unit In 153.000 Sodium Chloride 0.9% 150 ml @ 0.03 UNITS/MIN 4.59 mls/hr IV .Q24H [facility] Rx#: [id number] propofoL 1,000 mg In 298.521 389.812 Empty Bag 1 bag @ 15 MCG/ KG/MIN 12.247 mls/hr IV . Q8H10M [facility] Rx#:[id number] Tube Feeding 360 448 138 Blood Product 310 Rc As-1 Unit 310 [id number] Other 90 90 30 Output: Urine 2895 1955 95 Other: Voiding Method Indwelling Catheter Indwelling Catheter Indwelling Catheter ABP, PAP, CO, CI - Last Documented Arterial Blood Pressure 104/57 - Labs CBC & Chem 7: 07/10/23 05:26 07/10/23 05:26 Labs: Abnormal Lab Results - Last 24 Hours (Table) 07/07/23 07/09/23 07/09/23 Range/Units 21:54 10:47 10:50 WBC (3.8-10.6) k/uL RBC (4.30-5.90) m/uL Hgb (13.0-17.5) gm/dL Hct (39.0-53.0) % RDW (11.5-15.5) % ABG pH (7.35-7.45) ABG pCO2 (35-45) mmHg ABG pO2 (83-108) mmHg ABG O2 Saturation (94-97) % Sodium (137-145) mmol/L Potassium 3.3 L (3.5-5.1) mmol/L Carbon Dioxide (22-30) mmol/L Glucose (74-99) mg/dL POC Glucose (mg/dL) 202 H (70-110) mg/dL Calcium (8.4-10.2) mg/dL Ionized Calcium Ramila (4.5-5.3) mg/dL Total Protein (6.3-8.2) g/dL Albumin (3.5-5.0) g/dL Crossmatch See Detail 07/09/23 07/09/23 07/09/23 Range/Units 18:24 18:34 23:18 WBC (3.8-10.6) k/uL RBC (4.30-5.90) m/uL Hgb (13.0-17.5) gm/dL Hct (39.0-53.0) % RDW (11.5-15.5) % ABG pH (7.35-7.45) ABG pCO2 (35-45) mmHg ABG pO2 (83-108) mmHg ABG O2 Saturation (94-97) % Sodium (137-145) mmol/L Potassium 3.0 L (3.5-5.1) mmol/L Carbon Dioxide (22-30) mmol/L Glucose (74-99) mg/dL POC Glucose (mg/dL) 226 H 228 H (70-110) mg/dL Calcium (8.4-10.2) mg/dL Ionized Calcium Ramila (4.5-5.3) mg/dL Total Protein (6.3-8.2) g/dL Albumin (3.5-5.0) g/dL Crossmatch 07/10/23 07/10/23 07/10/23 Range/Units 01:31 05:26 05:26 WBC 12.4 H (3.8-10.6) k/uL RBC 2.80 L (4.30-5.90) m/uL Hgb 8.1 L (13.0-17.5) gm/dL Hct 23.6 L (39.0-53.0) % RDW 17.2 H (11.5-15.5) % ABG pH (7.35-7.45) ABG pCO2 (35-45) mmHg ABG pO2 (83-108) mmHg ABG O2 Saturation (94-97) % Sodium 131 L (137-145) mmol/L Potassium 3.3 L (3.5-5.1) mmol/L Carbon Dioxide 20 L (22-30) mmol/L Glucose 177 H (74-99) mg/dL POC Glucose (mg/dL) (70-110) mg/dL Calcium 6.9 L (8.4-10.2) mg/dL Ionized Calcium Ramila 4.3 L (4.5-5.3) mg/dL Total Protein 4.3 L (6.3-8.2) g/dL Albumin 1.7 L (3.5-5.0) g/dL Crossmatch 07/10/23 07/10/23 Range/Units 05:31 06:10 WBC (3.8-10.6) k/uL RBC (4.30-5.90) m/uL Hgb (13.0-17.5) gm/dL Hct (39.0-53.0) % RDW (11.5-15.5) % ABG pH 7.49 H (7.35-7.45) ABG pCO2 30 L (35-45) mmHg ABG pO2 109 H (83-108) mmHg ABG O2 Saturation 98.8 H (94-97) % Sodium (137-145) mmol/L Potassium (3.5-5.1) mmol/L Carbon Dioxide (22-30) mmol/L Glucose (74-99) mg/dL POC Glucose (mg/dL) 226 H (70-110) mg/dL Calcium (8.4-10.2) mg/dL Ionized Calcium Ramila (4.5-5.3) mg/dL Total Protein (6.3-8.2) g/dL Albumin (3.5-5.0) g/dL Crossmatch Microbiology - Last 24 Hours (Table) 07/08/23 00:30 Gram Stain - Preliminary Sputum Sputum Culture - Preliminary Beta Hemolytic Strep Group C 07/08/23 01:53 Urine Culture - Final Urine,Voided 07/07/23 14:14 Blood Culture Gram Stain - Preliminary Blood Blood Culture - Preliminary 07/07/23 09:04 Gram Stain - Preliminary Back Tissue Culture - Preliminary Gram Neg Bacilli 07/07/23 14:14 Blood Culture Gram Stain - Preliminary Blood Blood Culture - Preliminary
--- NOTE | 2023-07-10 12:56 | P.PN ---
Subjective Progress Note Date: 07/10/23 Pt remains intubated, sedated. Poor wound healing opportunity as patient cannot be proned to offload wound given his instability. Per surgery, patient's wound is unlikely to heal and he is likely a hospice candidate. General: intubated, sedated HEENT: normocephalic, atraumatic, no tracheal deviation Respiratory: symmetric chest rise, no cyanosis, ventilator dependent CVS: perfusing all extremities, no distal gangrene, present pitting edema GI: soft, ND : no SPT, no CVAT, abbott is present Neuro: sedated Hospital course: Patient is a 63-year-old male with permanent atrial fibrillation, COPD, hypertension, congestive heart failure per patient, and chronic lower extremity weakness who presented to the ER due to increased congestion. On arrival to the ER his vital signs were remarkable for a blood pressure of 83/37 and a pulse of 113. Laboratory analysis included CBC, coags, CMP, CK, and lactic acid which were remarkable for white blood cell count 24.1, hemoglobin 11.6, sodium 132, a nd lactic acid of 4.2. On arrival to the emergency department the patient was covered in feces and was desheveled. He was started on vancomycin, and Rocephin. He was seen by pulmonary and Eraxis was added. He received 2 L of IV fluids but remained hypotensive. I contacted general surgery who came in to see the patient and took him to the OR. He underwent an urgent wide excisional debrided of necrotic sacral decubitus ulcer. He was subsequently taken to the ICU he was intubated. He did require multiple vasopressors to be added including levo and days ago. He then developed atrial fibrillation with rapid ventricular response and amiodarone was initiated. Cardiology consult was placed. Echocardiogram showed ejection fraction 30-35% but may be underestimated due to tachycardia. CT abdomen and pelvis did confirm a large ulcer with exposed bone. Assessment/Plan: Infected lumbar and sacral decubitus ulcer with severe sepsis Functional quadralplegia with b/l le flexion contracture B/l Heel stage II pressure ulcures Severe Protein calorie malnutrition Class II obesity with BMI 37.5 Possibel Gram + bacilli bacteremia - Eraxis 100 mg daily daily #4 - Zosyn 3.375 g IV piggyback every 8 hours day #4 - Vancomycin IV piggyback daily #3, monitor creatinine and a trough for signs of toxicity. - Wean vasopressin as able - await final blood cultures -Pulmonary note reviewed: Patient holiday to assess mental status. -Await further infectious disease recommendations - Surgery recs: will possibly need repeat debridement and diverting colostomy once more stable. Acute blood loss anemia, anticipated outcome of surgery -Anticipate patient have continued blood loss giving need for surgical debridement over such a large area. -No transfusion required on 07/10 -Repeat CBC in a.m. Acute exacerbation of systolic CHF with EF 30-35% (me be under estimated due to tachycardia) Permanent atrial fibrillation with rapid ventricular response HTN -Cardiology following -Amiodarone infusion has been discontinued -Holding off anticoagulation until hemoglobin stabilizes and cleared by surgery Hyperglycemia -Add 10 units of Levemir, continue sliding scale insulin Imaging: Chest x-ray personally interpreted on 07/10, OG tube, ET tube are well placed, low expiratory volume, Data Review: CBC: White blood cell count 12.4, hemoglobin 8.1 Basic metabolic panel: Sodium 131, CO2 20 Liver function tests: Albumin 1.7 Vancomycin trough: 20.4 Capillary blood glucose: 202-226 Blood cultures are positive for gram-positive bacilli, tissue cultures positive for gram-negative bacilli DVT prophylaxis: Lovenox Poor overall prognosis Anticipated discharge date: Pending Clinical Course Anticipated discharge place: Pending Clinical Course This dictation was prepared using [employer] voice recognition software. Though every attempt is made to correct errors during dictation some may still exist. Objective - Vital Signs Vital signs: Vital Signs Temp 96 F L 07/10/23 04:00 Pulse 75 07/10/23 11:35 Resp 25 H 07/10/23 11:00 BP 103/78 07/10/23 11:00 Pulse Ox 100 07/10/23 11:00 FiO2 35 07/10/23 11:23 Intake & Output 07/09/23 07/10/23 07/10/23 18:59 06:59 18:59 Intake Total 2510.359 2770.136 979.900 Output Total 2895 1955 155 Balance -384.641 815.136 824.900 Weight 147.6 kg Intake: IV 1400 1400 600 Anidulafungin 100 mg In 100 Sodium Chloride 0.9% 100 ml @ 84 mls/hr IVPB [facility] Rx#:[id number] Piperacillin-Tazobactam 3 200 100 100 .375 gm In Sodium Chloride 0.9% 100 ml @ 25 mls/hr IVPB Q8HR [facility] Rx# :[id number] Sodium Chloride 0.9% 1, 1200 1200 500 000 ml @ 100 mls/hr IV . Q10H [facility] Rx#:[id number] Intake, IV Titration 350.359 832.136 211.900 Amount Amiodarone 360 mg In 24.444 Dextrose 5% in Water 200 ml @ 1 MG/MIN 33.333 mls/ hr IV .Q6H [facility] Rx#: [id number] Amiodarone 450 mg In 242.227 95.835 Dextrose 5% in Water 250 ml @ 0.5 MG/MIN 16.667 mls/hr IV .Q15H [facility] Rx#: [id number] Norepinephrine 4 mg In 27.394 47.097 Sodium Chloride 0.9% 250 ml @ 0.05 MCG/KG/MIN 25. 923 mls/hr IV .Q9H48M [facility] Rx#:[id number] Vasopressin 60 unit In 153.000 16.065 Sodium Chloride 0.9% 150 ml @ 0.03 UNITS/MIN 4.59 mls/hr IV .Q24H [facility] Rx#: [id number] propofoL 1,000 mg In 298.521 389.812 100 Empty Bag 1 bag @ 15 MCG/ KG/MIN 12.247 mls/hr IV . Q8H10M [facility] Rx#:[id number] Tube Feeding 360 448 138 Blood Product 310 Rc As-1 Unit 310 [id number] Other 90 90 30 Output: Urine 2895 1955 155 Other: Voiding Method Indwelling Catheter Indwelling Catheter Indwelling Catheter ABP, PAP, CO, CI - Last Documented Arterial Blood Pressure 104/58 - Labs CBC & Chem 7: 07/10/23 05:26 07/10/23 05:26 Labs: Abnormal Lab Results - Last 24 Hours (Table) 07/07/23 07/09/23 07/09/23 Range/Units 21:54 18:24 18:34 WBC (3.8-10.6) k/uL RBC (4.30-5.90) m/uL Hgb (13.0-17.5) gm/dL Hct (39.0-53.0) % RDW (11.5-15.5) % ABG pH (7.35-7.45) ABG pCO2 (35-45) mmHg ABG pO2 (83-108) mmHg ABG O2 Saturation (94-97) % Sodium (137-145) mmol/L Potassium 3.0 L (3.5-5.1) mmol/L Carbon Dioxide (22-30) mmol/L Glucose (74-99) mg/dL POC Glucose (mg/dL) 226 H (70-110) mg/dL Calcium (8.4-10.2) mg/dL Ionized Calcium Ramila (4.5-5.3) mg/dL Total Protein (6.3-8.2) g/dL Albumin (3.5-5.0) g/dL Crossmatch See Detail 07/09/23 07/10/23 07/10/23 Range/Units 23:18 01:31 05:26 WBC 12.4 H (3.8-10.6) k/uL RBC 2.80 L (4.30-5.90) m/uL Hgb 8.1 L (13.0-17.5) gm/dL Hct 23.6 L (39.0-53.0) % RDW 17.2 H (11.5-15.5) % ABG pH (7.35-7.45) ABG pCO2 (35-45) mmHg ABG pO2 (83-108) mmHg ABG O2 Saturation (94-97) % Sodium (137-145) mmol/L Potassium 3.3 L (3.5-5.1) mmol/L Carbon Dioxide (22-30) mmol/L Glucose (74-99) mg/dL POC Glucose (mg/dL) 228 H (70-110) mg/dL Calcium (8.4-10.2) mg/dL Ionized Calcium Ramila (4.5-5.3) mg/dL Total Protein (6.3-8.2) g/dL Albumin (3.5-5.0) g/dL Crossmatch 07/10/23 07/10/23 07/10/23 Range/Units 05:26 05:31 06:10 WBC (3.8-10.6) k/uL RBC (4.30-5.90) m/uL Hgb (13.0-17.5) gm/dL Hct (39.0-53.0) % RDW (11.5-15.5) % ABG pH 7.49 H (7.35-7.45) ABG pCO2 30 L (35-45) mmHg ABG pO2 109 H (83-108) mmHg ABG O2 Saturation 98.8 H (94-97) % Sodium 131 L (137-145) mmol/L Potassium (3.5-5.1) mmol/L Carbon Dioxide 20 L (22-30) mmol/L Glucose 177 H (74-99) mg/dL POC Glucose (mg/dL) 226 H (70-110) mg/dL Calcium 6.9 L (8.4-10.2) mg/dL Ionized Calcium Ramila 4.3 L (4.5-5.3) mg/dL Total Protein 4.3 L (6.3-8.2) g/dL Albumin 1.7 L (3.5-5.0) g/dL Crossmatch 07/10/23 Range/Units 11:19 WBC (3.8-10.6) k/uL RBC (4.30-5.90) m/uL Hgb (13.0-17.5) gm/dL Hct (39.0-53.0) % RDW (11.5-15.5) % ABG pH (7.35-7.45) ABG pCO2 (35-45) mmHg ABG pO2 (83-108) mmHg ABG O2 Saturation (94-97) % Sodium (137-145) mmol/L Potassium (3.5-5.1) mmol/L Carbon Dioxide (22-30) mmol/L Glucose (74-99) mg/dL POC Glucose (mg/dL) 219 H (70-110) mg/dL Calcium (8.4-10.2) mg/dL Ionized Calcium Ramila (4.5-5.3) mg/dL Total Protein (6.3-8.2) g/dL Albumin (3.5-5.0) g/dL Crossmatch Microbiology - Last 24 Hours (Table) 07/07/23 14:14 Blood Culture Gram Stain - Final Blood Blood Culture - Final Anaerobic Gm Positive Bacill 07/07/23 14:14 Blood Culture Gram Stain - Final Blood Blood Culture - Final Anaerobic Gm Positive Bacill 07/08/23 00:30 Gram Stain - Preliminary Sputum Sputum Culture - Preliminary Beta Hemolytic Strep Group C 07/08/23 01:53 Urine Culture - Final Urine,Voided 07/07/23 09:04 Gram Stain - Preliminary Back Tissue Culture - Preliminary Gram Neg Bacilli
--- NOTE | 2023-07-10 13:44 | P.PN ---
Subjective Progress Note Date: 07/10/23 Principal diagnosis: Septic shock and acute hypoxic respiratory failure I am seeing this patient in consultation today 07/08/2023 in the intensive care unit after presenting to the emergency room yesterday afternoon. He was found to have a large sacral decubitus ulcer that was felt to be infected. He underwent excisional debridement of the necrotic sacral decubitus ulcer late last night. He was then transferred to the intensive care unit and remains on the ventilator. Patient is a 63-year-old white male with past medical history significant for atrial fibrillation, hypertension, hyperlipidemia, COPD, chronic ongoing tobacco dependence, alcoholism, among other things. As stated, the patient is currently intubated on the mechanical ventilator, and unable to provide any history. Patient's mother is at the bedside, reports that over the last month or so the patient has been fairly dependent in his chair. He's been very weak and unable to ambulate. She has been bringing him food. He likely hasn't been taking his medications for the last 2 weeks because he ran out. He's had ongoing issues with diarrhea and cannot get to the bathroom. On arrival to the emergency room, he was found to have a very large sacral decubitus pressure ulcer. It was felt to be infected with areas of necrosis and purulent drainage. A CT of the abdomen and pelvis demonstrated a large sacral decubitus ulcer with exposed sacral and coccyx bone. No organizing fluid collections to suggest abscess. There was gas tracking along the myofascial planes in the buttocks/pelvic region felt to be likely due to a large defect and skin/subcutaneous tissue. No definitive osteomyelitis noted. There is subcutaneous edema throughout the soft tissues around the pelvis. There was bilateral pleural effusions, cardiomegaly, and a nonobstructive left renal calculus. Patient was taken to the OR for debridement late last night. He is currently in the intensive care unit and intubated to the mechanical ventilator. Ventilator settings are assist control, respiratory rate 24, tidal volume 500, FiO2 50%, PEEP of 5. These were adjusted based on the most recent ABG including a PaO2 of 384, pCO2 49, pH is 7.27. Post-op chest x-ray demonstrates the endotracheal tube above the omega. There is a orogastric tube coursing below the diaphragm. Chest x-ray shows cardiomegaly, pulmonary vasculature congestion, and bilateral pleural effusions with associated atelectasis. He is sedated on propofol at 30 mcg/kg/m. Fairly synchronous with mechanical ventilator. Heart rhythm is atrial fibrillation with rapid ventricular rate ranging from 140-180 bpm. Blood pressure was hypotensive and he was bolused 3 L normal saline. Then started on vasopressors with norepinephrine infusing at 0.1 mcg/kg/m. Blood pressure remains labile and fluctuates with extreme tachycardia. Amiodarone was started per protocol and he was bolused 150 mg and is currently infusing at 1 mg/m. A femoral central line catheter was established in OR. Patient appears septic, and is empirically covered with a combination of Zosyn and vancomycin. Pancultures are pending. C. diff EIA is pending. Most recent CBC shows a WBC count of 31.5, hemoglobin 9.1, hematocrit 28.8, platelets 351. CMV has a sodium 132, potassium 3.6, chloride 106, serum bicarb 19, BUN 19, creatinine 0.73, glucose 157. Magnesium is 1.4 and is being replaced. Lactic acid level was elevated at 4.2 and is down to 3.1. Prognosis is guarded and his condition is currently critical. He is being monitored in the intensive care unit. Patient was reevaluated today on 07/09/2023, remains in the ICU, intubated and mechanically ventilated. Patient is on assist control rate of 24 tidal volume 500 FiO2 40% and PEEP of 5 ABG showed a pO2 of 170 pCO2 32 pH of 7.40 hence his FiO2 was cut down to 35%. Patient remains in atrial fibrillation, he is on amiodarone at 1 mcg/m, vasopressin at 0.04 units per minute, norepinephrine at 0.01 mcg/kg/m propofol at 40 mcg/kg/m patient remains on Zosyn and vancomycin and an axis. His IV fluid is 0.9 normal saline at 100 mL/h. He did receive Lasix yesterday and he had a significant urine output, hemoglobin today however is down to 7.1, and that is most likely from his blood loss from his debridement of the sacral decubitus ulcer history definite improvement today compared to yesterday, nonetheless the patient remains critically ill, remains septic and requiring pressors. However his heart rate is better controlled blood pressure is better controlled and he is on (compared to yesterday. The plan is to discontinue norepinephrine and continue vasopressin for now. And we will continue fluids at 100 mL/h nonetheless the patient will receive another dose of Lasix today as he received significant fluid boluses yesterday for low blood pressure. And the patient is known to have history of LV dysfunction. WBC count today is 13.2 hemoglobin is 7.1, potassium 3.2 BUN is normal creatinine is normal chest x-ray showed bilateral small pleural effusions, no pneumonia, Patient was reevaluated today on 07/10/23, remains in the ICU intubated and mechanically ventilated. Patient is on assist control rate of 24 tidal volume 500 FiO2 35% and PEEP of 5 remains on vasopressin at 0.03 units per minute, he is on propofol at 40 mcg/kg/m. ABG showed a pO2 of 109 pCO2 30 pH of 7.49 IV fluid is at 100 mL per hour. Overall the patient is showing improvement, however the surgeon clearly stated that he is recommending comfort care measures considering the extensiveness of the wound that this patient has and he doesn't believe that the patient will make it with Extensive one in the buttocks area. No plans for any further debridement according to the surgeon, and today I went ahead and had a discussion with the patient's mother, and gave the patient's mother the option of comfort care measures or back option of continuing full support. Apparently the mother is saying that she is very well aware of his poor overall clinical status and she is basically almost ready to make a decision to go to comfort care because she does not want him to suffer anymore. Apparently his quality of life has been very miserable and extremely poor. WBC count today is 12.4 hemoglobin 8.1 basic metabolic profile is normal and renal profile is normal chest x-ray this morning showed endotracheal tube to be at 4.7 cm above the omega and the patient has low lung volumes, stable support tubes noted. Objective - Vital Signs Vital signs: Vital Signs Temp 96 F L 07/10/23 04:00 Pulse 75 07/10/23 11:35 Resp 25 H 07/10/23 11:00 BP 103/78 07/10/23 11:00 Pulse Ox 100 07/10/23 11:00 FiO2 35 07/10/23 11:23 Intake & Output 07/09/23 07/10/23 07/10/23 18:59 06:59 18:59 Intake Total 2510.359 2770.136 979.900 Output Total 2895 5 155 Balance -384.641 815.136 824.900 Weight 147.6 kg Intake: IV 1400 1400 600 Anidulafungin 100 mg In 100 Sodium Chloride 0.9% 100 ml @ 84 mls/hr IVPB HS [facility] Rx#:[id number] Piperacillin-Tazobactam 3 200 100 100 .375 gm In Sodium Chloride 0.9% 100 ml @ 25 mls/hr IVPB Q8HR [facility] Rx# :[id number] Sodium Chloride 0.9% 1, 1200 1200 500 000 ml @ 100 mls/hr IV . Q10H [facility] Rx#:[id number] Intake, IV Titration 350.359 832.136 211.900 Amount Amiodarone 360 mg In 24.444 Dextrose 5% in Water 200 ml @ 1 MG/MIN 33.333 mls/ hr IV .Q6H [facility] Rx#: [id number] Amiodarone 450 mg In 242.227 95.835 Dextrose 5% in Water 250 ml @ 0.5 MG/MIN 16.667 mls/hr IV .Q15H [facility] Rx#: [id number] Norepinephrine 4 mg In 27.394 47.097 Sodium Chloride 0.9% 250 ml @ 0.05 MCG/KG/MIN 25. 923 mls/hr IV .Q9H48M [facility] Rx#:[id number] Vasopressin 60 unit In 153.000 16.065 Sodium Chloride 0.9% 150 ml @ 0.03 UNITS/MIN 4.59 mls/hr IV .Q24H [facility] Rx#: [id number] propofoL 1,000 mg In 298.521 389.812 100 Empty Bag 1 bag @ 15 MCG/ KG/MIN 12.247 mls/hr IV . Q8H10M [facility] Rx#:[id number] Tube Feeding 360 448 138 Blood Product 310 Rc As-1 Unit 310 [id number] Other 90 90 30 Output: Urine 2895 1954 155 Other: Voiding Method Indwelling Catheter Indwelling Catheter Indwelling Catheter ABP, PAP, CO, CI - Last Documented Arterial Blood Pressure 104/58 - Exam GENERAL EXAM: Revealed 63-year-old white male obese, intubated and mechanically ventilated. HEAD: Normocephalic and atraumatic EYES: Normal reaction of pupils, equal size. NOSE: Clear with pink turbinates. THROAT: No erythema or exudates endotracheal tube and orogastric tube are intact.. NECK: No masses, no JVD. Short obese neck is noted. CHEST: No chest wall deformity. LUNGS: Diminished breath sounds at the bases no crackles or rhonchi or wheezes CVS: S1 and S2 normal with no audible murmur, irregular rhythm. ABDOMEN: Obese, No hepatosplenomegaly, active bowel sounds, no guarding or rigidity. SKIN: Fungal dermatitis noted underneath neck folds, breasts, and abdominal folds. Sacral decubitus debridement site is dressed with postoperative dressings. CENTRAL NERVOUS SYSTEM: Sedated on propofol, unable to assess Psychiatric: Unable to assess EXTREMITIES: Chronic venous stasis changes with mild to moderate nonpitting edema. No clubbing, or cyanosis. Peripheral pulses are intact. - Labs CBC & Chem 7: 07/10/23 05:26 07/10/23 05:26 Labs: Abnormal Lab Results - Last 24 Hours (Table) 07/07/23 07/09/23 07/09/23 Range/Units 21:54 18:24 18:34 WBC (3.8-10.6) k/uL RBC (4.30-5.90) m/uL Hgb (13.0-17.5) gm/dL Hct (39.0-53.0) % RDW (11.5-15.5) % ABG pH (7.35-7.45) ABG pCO2 (35-45) mmHg ABG pO2 (83-108) mmHg ABG O2 Saturation (94-97) % Sodium (137-145) mmol/L Potassium 3.0 L (3.5-5.1) mmol/L Carbon Dioxide (22-30) mmol/L Glucose (74-99) mg/dL POC Glucose (mg/dL) 226 H (70-110) mg/dL Calcium (8.4-10.2) mg/dL Ionized Calcium Ramila (4.5-5.3) mg/dL Total Protein (6.3-8.2) g/dL Albumin (3.5-5.0) g/dL Crossmatch See Detail 07/09/23 07/10/23 07/10/23 Range/Units 23:18 01:31 05:26 WBC 12.4 H (3.8-10.6) k/uL RBC 2.80 L (4.30-5.90) m/uL Hgb 8.1 L (13.0-17.5) gm/dL Hct 23.6 L (39.0-53.0) % RDW 17.2 H (11.5-15.5) % ABG pH (7.35-7.45) ABG pCO2 (35-45) mmHg ABG pO2 (83-108) mmHg ABG O2 Saturation (94-97) % Sodium (137-145) mmol/L Potassium 3.3 L (3.5-5.1) mmol/L Carbon Dioxide (22-30) mmol/L Glucose (74-99) mg/dL POC Glucose (mg/dL) 228 H (70-110) mg/dL Calcium (8.4-10.2) mg/dL Ionized Calcium Ramila (4.5-5.3) mg/dL Total Protein (6.3-8.2) g/dL Albumin (3.5-5.0) g/dL Crossmatch 07/10/23 07/10/23 07/10/23 Range/Units 05:26 05:31 06:10 WBC (3.8-10.6) k/uL RBC (4.30-5.90) m/uL Hgb (13.0-17.5) gm/dL Hct (39.0-53.0) % RDW (11.5-15.5) % ABG pH 7.49 H (7.35-7.45) ABG pCO2 30 L (35-45) mmHg ABG pO2 109 H (83-108) mmHg ABG O2 Saturation 98.8 H (94-97) % Sodium 131 L (137-145) mmol/L Potassium (3.5-5.1) mmol/L Carbon Dioxide 20 L (22-30) mmol/L Glucose 177 H (74-99) mg/dL POC Glucose (mg/dL) 226 H (70-110) mg/dL Calcium 6.9 L (8.4-10.2) mg/dL Ionized Calcium Ramila 4.3 L (4.5-5.3) mg/dL Total Protein 4.3 L (6.3-8.2) g/dL Albumin 1.7 L (3.5-5.0) g/dL Crossmatch 07/10/23 Range/Units 11:19 WBC (3.8-10.6) k/uL RBC (4.30-5.90) m/uL Hgb (13.0-17.5) gm/dL Hct (39.0-53.0) % RDW (11.5-15.5) % ABG pH (7.35-7.45) ABG pCO2 (35-45) mmHg ABG pO2 (83-108) mmHg ABG O2 Saturation (94-97) % Sodium (137-145) mmol/L Potassium (3.5-5.1) mmol/L Carbon Dioxide (22-30) mmol/L Glucose (74-99) mg/dL POC Glucose (mg/dL) 219 H (70-110) mg/dL Calcium (8.4-10.2) mg/dL Ionized Calcium Ramila (4.5-5.3) mg/dL Total Protein (6.3-8.2) g/dL Albumin (3.5-5.0) g/dL Crossmatch Microbiology - Last 24 Hours (Table) 07/07/23 14:14 Blood Culture Gram Stain - Final Blood Blood Culture - Final Anaerobic Gm Positive Bacill 07/07/23 14:14 Blood Culture Gram Stain - Final Blood Blood Culture - Final Anaerobic Gm Positive Bacill 07/08/23 00:30 Gram Stain - Preliminary Sputum Sputum Culture - Preliminary Beta Hemolytic Strep Group C 07/08/23 01:53 Urine Culture - Final Urine,Voided 07/07/23 09:04 Gram Stain - Preliminary Back Tissue Culture - Preliminary Gram Neg Bacilli Assessment and Plan Assessment: Impression: Septic shock, primary source is infected large sacral decubitus ulcer, this is a relatively large and extensive wound involving the sacral decubitus area. Infected large sacral decubitus ulcer with secondary sepsis status postoperative day #3 following large excisional debridement. Acute hypoxemic and hypercapnic respiratory failure, requiring intubation and mechanical ventilation, multifactorial mostly related to his septic shock and his bilateral pleural effusion/congestive heart failure/systolic in nature Paroxysmal Atrial fibrillation with rapid ventricular rate, currently on amiodarone infusion per protocol. Acute blood loss anemia, expected outcome of surgery Diarrhea, check C. diff Possible UTI fungal dermatitis involving his axillary region and groin bilaterally Chronic obstructive pulmonary disease, stable Chronic ongoing tobacco dependence History of alcoholism, last drink reportedly 6 weeks ago History of hypertension History of hyperlipidemia Obesity, with a BMI of 37.5 kg/m Recommendation: Continue ventilatory support Continue hemodynamic support/pressors and titrate accordingly patient remains on vasopressin today, off norepinephrine Continue nutritional support Continue antibiotics as per infectious disease on the case Continue GI and DVT prophylaxis Cardiology is addressing his amiodarone. Intermittent gentle diuresis. Continue to monitor daily labs Mother was approached regarding his condition and made aware of the surgical recommendation of comfort care measures. Mother will think about it, and she would make up her mind in the next 24 hours whether to proceed to comfort care or continue the same. Patient remains critically ill, We'll continue to follow. Critical care time is over 30 minutes Time with Patient: Greater than 30
--- NOTE | 2023-07-10 14:28 | P.PN ---
Subjective Progress Note Date: 07/09/23 Principal diagnosis: Reason for follow-up is sepsis and infected sacral pressure ulcer. Patient is a 63-year-old male with a past medical history negative for hypertension COPD atrial flutter atrial fibrillation patient was brought into the hospital for evaluation of weakness diarrhea patient was noticed to have extensive sacral pressure ulcer also noticed to be septic in this patient with status post extensive debridement of the sacral wound which is extending down to the coccyx and the patient was subsequently admitted to the ICU. On today's evaluation there is 07/09/2023 patient is afebrile, the patient is currently on the vent FiO2 is down to 35% no significant purulent secretions through the ET patient is on a pressor support however slightly less amount no other changes reported by the nursing staff. Objective - Vital Signs Vital signs: Vital Signs Temp 97.3 F L 07/09/23 11:45 Pulse 69 07/09/23 12:00 Resp 24 07/09/23 12:00 BP 91/66 07/09/23 12:00 Pulse Ox 100 07/09/23 12:00 FiO2 35 07/09/23 12:00 Intake & Output 07/08/23 07/09/23 07/09/23 18:59 06:59 18:59 Intake Total 3989.039 2486.466 1091.838 Output Total 925 1470 1220 Balance 3064.039 1016.466 -128.162 Weight 140.5 kg Intake: IV 1200 700 Piperacillin-Tazobactam 3 100 .375 gm In Sodium Chloride 0.9% 100 ml @ 25 mls/hr IVPB Q8HR [facility] Rx# :[id number] Sodium Chloride 0.9% 1, 1200 600 000 ml @ 100 mls/hr IV . Q10H [facility] Rx#:[id number] Intake, IV Titration 3939.039 966.466 151.838 Amount Amiodarone 360 mg In 241.221 Dextrose 5% in Water 200 ml @ 1 MG/MIN 33.333 mls/ hr IV .Q6H [facility] Rx#: [id number] Amiodarone 360 mg In 132 33 Dextrose 5% in Water 200 ml @ 1 MG/MIN 33.333 mls/ hr IV .Q6H [facility] Rx#: [id number] Amiodarone 360 mg In 156.11 24.444 Dextrose 5% in Water 200 ml @ 1 MG/MIN 33.333 mls/ hr IV .Q6H [facility] Rx#: [id number] Anidulafungin 100 mg In 100 Sodium Chloride 0.9% 100 ml @ 84 mls/hr IVPB HS [facility] Rx#:[id number] Magnesium Sulfate-D5w Pmx 33 1 gm In Dextrose/Water 1 100ml.bag @ 100 mls/hr IVPB Q1H [facility] Rx#: [id number] Norepinephrine 4 mg In 870.876 175.410 27.394 Sodium Chloride 0.9% 250 ml @ 0.05 MCG/KG/MIN 25. 923 mls/hr IV .Q9H48M [facility] Rx#:[id number] Piperacillin-Tazobactam 3 400 .375 gm In Sodium Chloride 0.9% 100 ml @ 25 mls/hr IVPB Q8HR [facility] Rx# :[id number] Sodium Chloride 0.9% 1, 1350 000 ml @ 100 mls/hr IV . Q10H [facility] Rx#:[id number] Vancomycin 2,000 mg In 500 Sodium Chloride 0.9% 500 ml 500 ml @ 167 mls/hr IVPB Q12H [facility] Rx#: [id number] Vasopressin 60 unit In 16.142 108.324 Sodium Chloride 0.9% 150 ml @ 0.03 UNITS/MIN 4.59 mls/hr IV .Q24H [facility] Rx#: [id number] propofoL 1,000 mg In 395.8 393.622 100 Empty Bag 1 bag @ 15 MCG/ KG/MIN 12.247 mls/hr IV . Q8H10M [facility] Rx#:[id number] Tube Feeding 50 230 180 Other 90 60 Output: Urine 925 1470 1220 Other: Voiding Method Indwelling Catheter Indwelling Catheter Indwelling Catheter # Bowel Movements 1 ABP, PAP, CO, CI - Last Documented Arterial Blood Pressure 112/54 - Exam GENERAL DESCRIPTION: Middle-age male intubated on the vent RESPIRATORY SYSTEM: Unlabored breathing , decreased breath sounds at bases HEART: S1 S2 regular rate and rhythm , ABDOMEN: Soft , no tenderness EXTREMITIES: Diffuse swelling to both legs no redness. - Labs CBC & Chem 7: 07/10/23 05:26 07/10/23 05:26 Labs: Abnormal Lab Results - Last 24 Hours (Table) 07/07/23 07/08/2307/09/24 Range/Units 21:54 23:51 04:35 WBC (3.8-10.6) k/uL RBC (4.30-5.90) m/uL Hgb (13.0-17.5) gm/dL Hct (39.0-53.0) % RDW (11.5-15.5) % Neutrophils # (1.3-7.7) k/uL ABG pCO2 (35-45) mmHg ABG pO2 (83-108) mmHg ABG HCO3 (21-25) mmol/L ABG O2 Saturation (94-97) % Sodium 131 L (137-145) mmol/L Potassium 3.2 L (3.5-5.1) mmol/L Chloride 108 H (98-107) mmol/L Carbon Dioxide 16 L (22-30) mmol/L Glucose 136 H (74-99) mg/dL POC Glucose (mg/dL) 141 H (70-110) mg/dL Calcium 6.4 L* (8.4-10.2) mg/dL Ionized Calcium Ramila (4.5-5.3) mg/dL Total Protein 3.7 L (6.3-8.2) g/dL Albumin 1.4 L (3.5-5.0) g/dL Crossmatch See Detail 07/09/23 07/09/23 07/09/23 Range/Units 05:30 05:36 05:38 WBC 13.2 H (3.8-10.6) k/uL RBC 2.62 L (4.30-5.90) m/uL Hgb 7.1 L D (13.0-17.5) gm/dL Hct 22.8 L (39.0-53.0) % RDW 17.4 H (11.5-15.5) % Neutrophils # 11.2 H (1.3-7.7) k/uL ABG pCO2 32 L (35-45) mmHg ABG pO2 170 H (83-108) mmHg ABG HCO3 20 L (21-25) mmol/L ABG O2 Saturation 98.9 H (94-97) % Sodium (137-145) mmol/L Potassium (3.5-5.1) mmol/L Chloride (98-107) mmol/L Carbon Dioxide (22-30) mmol/L Glucose (74-99) mg/dL POC Glucose (mg/dL) (70-110) mg/dL Calcium (8.4-10.2) mg/dL Ionized Calcium Ramila 4.2 L (4.5-5.3) mg/dL Total Protein (6.3-8.2) g/dL Albumin (3.5-5.0) g/dL Crossmatch 07/09/23 07/09/23 07/09/23 Range/Units 05:55 10:47 10:50 WBC (3.8-10.6) k/uL RBC (4.30-5.90) m/uL Hgb (13.0-17.5) gm/dL Hct (39.0-53.0) % RDW (11.5-15.5) % Neutrophils # (1.3-7.7) k/uL ABG pCO2 (35-45) mmHg ABG pO2 (83-108) mmHg ABG HCO3 (21-25) mmol/L ABG O2 Saturation (94-97) % Sodium (137-145) mmol/L Potassium 3.3 L (3.5-5.1) mmol/L Chloride (98-107) mmol/L Carbon Dioxide (22-30) mmol/L Glucose (74-99) mg/dL POC Glucose (mg/dL) 137 H 202 H (70-110) mg/dL Calcium (8.4-10.2) mg/dL Ionized Calcium Ramila (4.5-5.3) mg/dL Total Protein (6.3-8.2) g/dL Albumin (3.5-5.0) g/dL Crossmatch Microbiology - Last 24 Hours (Table) 07/07/23 14:14 Blood Culture Gram Stain - Preliminary Blood Blood Culture - Preliminary 07/07/23 09:04 Gram Stain - Preliminary Back Tissue Culture - Preliminary Gram Neg Bacilli 07/07/23 14:14 Blood Culture Gram Stain - Preliminary Blood Blood Culture - Preliminary 07/08/23 00:30 Gram Stain - Preliminary Sputum Assessment and Plan (1) Positive blood culture Current Visit: Yes Status: Acute Code(s): R78.81 - BACTEREMIA SNOMED Code(s): 332676212 (2) Infected decubitus ulcer Current Visit: Yes Status: Acute Code(s): L89.90 - PRESSURE ULCER OF UNSPECIFIED SITE, UNSPECIFIED STAGE; L08.9 - LOCAL INFECTION OF THE SKIN AND SUBCUTANEOUS TISSUE, UNSP SNOMED Code(s): 435950074 (3) Sepsis Current Visit: Yes Status: Acute Code(s): A41.9 - SEPSIS, UNSPECIFIED ORGANISM SNOMED Code(s): 69925339 Plan: 1patient presented to hospital with sepsis in this patient who did have a hypothermia tachycardia elevated white count source is infected sacral pressure ulcer and concern for underlying osteomyelitis in this patient who is status post extensive debridement in the OR completed yesterday and deep culture which are currently pending with Gram stain showing both gram-negative bacilli as well as gram-positive cocci 2local cultures currently growing gram-negative bacilli. 3positive blood culture with gram-positive bacilli more likely skin contami nation. 4we will keep the patient on Zosyn however discontinue vancomycin to decrease risk of nephrotoxicity Plan of care were discussed with the admitting team Dictation was produced using [employer] dictation software. please excuse any grammatical, word or spelling errors. Time with Patient: Less than 30
--- NOTE | 2023-07-10 14:32 | P.PN ---
Subjective Progress Note Date: 07/10/23 Principal diagnosis: Reason for follow-up is sepsis and infected sacral pressure ulcer. Patient is a 63-year-old male with a past medical history negative for hypertension COPD atrial flutter atrial fibrillation patient was brought into the hospital for evaluation of weakness diarrhea patient was noticed to have extensive sacral pressure ulcer also noticed to be septic in this patient with status post extensive debridement of the sacral wound which is extending down to the coccyx and the patient was subsequently admitted to the ICU. On today's evaluation there is that is 07/10/2023 patient remains to be afebrile, the patient is currently on the vent FiO2 is stable at 35% no significant purulent secretions through the ET patient is on a pressor support however slightly less amount than yesterday, no other changes reported by the nursing staff. The patient white count is down to 12.4, creatinine 0.81, blood culture with anaerobic gram-positive bacilli back is showing gram-negative bacilli Objective - Vital Signs Vital signs: Vital Signs Temp 96 F L 07/10/23 04:00 Pulse 75 07/10/23 11:35 Resp 25 H 07/10/23 11:00 BP 103/78 07/10/23 11:00 Pulse Ox 100 07/10/23 11:00 FiO2 35 07/10/23 11:23 Intake & Output 07/09/23 07/10/23 07/10/23 18:59 06:59 18:59 Intake Total 2510.359 2770.136 979.900 Output Total 2895 1955 155 Balance -384.641 815.136 824.900 Weight 147.6 kg Intake: IV 1400 1400 600 Anidulafungin 100 mg In 100 Sodium Chloride 0.9% 100 ml @ 84 mls/hr IVPB HS [facility] Rx#:[id number] Piperacillin-Tazobactam 3 200 100 100 .375 gm In Sodium Chloride 0.9% 100 ml @ 25 mls/hr IVPB Q8HR [facility] Rx# :[id number] Sodium Chloride 0.9% 1, 1200 1200 500 000 ml @ 100 mls/hr IV . Q10H [facility] Rx#:[id number] Intake, IV Titration 350.359 832.136 211.900 Amount Amiodarone 360 mg In 24.444 Dextrose 5% in Water 200 ml @ 1 MG/MIN 33.333 mls/ hr IV .Q6H [facility] Rx#: [id number] Amiodarone 450 mg In 242.227 95.835 Dextrose 5% in Water 250 ml @ 0.5 MG/MIN 16.667 mls/hr IV .Q15H [facility] Rx#: [id number] Norepinephrine 4 mg In 27.394 47.097 Sodium Chloride 0.9% 250 ml @ 0.05 MCG/KG/MIN 25. 923 mls/hr IV .Q9H48M [facility] Rx#:[id number] Vasopressin 60 unit In 153.000 16.065 Sodium Chloride 0.9% 150 ml @ 0.03 UNITS/MIN 4.59 mls/hr IV .Q24H [facility] Rx#: [id number] propofoL 1,000 mg In 298.521 389.812 100 Empty Bag 1 bag @ 15 MCG/ KG/MIN 12.247 mls/hr IV . Q8H10M [facility] Rx#:[id number] Tube Feeding 360 448 138 Blood Product 310 Rc As-1 Unit 310 [id number] Other 90 90 30 Output: Urine 2895 1955 155 Other: Voiding Method Indwelling Catheter Indwelling Catheter Indwelling Catheter ABP, PAP, CO, CI - Last Documented Arterial Blood Pressure 104/58 - Exam GENERAL DESCRIPTION: Middle-age male intubated on the vent RESPIRATORY SYSTEM: Unlabored breathing , decreased breath sounds at bases HEART: S1 S2 regular rate and rhythm , ABDOMEN: Soft , no tenderness EXTREMITIES: Diffuse swelling to both legs no redness. - Labs CBC & Chem 7: 07/10/23 05:26 07/10/23 05:26 Labs: Abnormal Lab Results - Last 24 Hours (Table) 07/07/23 07/09/23 07/09/23 Range/Units 21:54 18:24 18:34 WBC (3.8-10.6) k/uL RBC (4.30-5.90) m/uL Hgb (13.0-17.5) gm/dL Hct (39.0-53.0) % RDW (11.5-15.5) % ABG pH (7.35-7.45) ABG pCO2 (35-45) mmHg ABG pO2 (83-108) mmHg ABG O2 Saturation (94-97) % Sodium (137-145) mmol/L Potassium 3.0 L (3.5-5.1) mmol/L Carbon Dioxide (22-30) mmol/L Glucose (74-99) mg/dL POC Glucose (mg/dL) 226 H (70-110) mg/dL Calcium (8.4-10.2) mg/dL Ionized Calcium Ramila (4.5-5.3) mg/dL Total Protein (6.3-8.2) g/dL Albumin (3.5-5.0) g/dL Crossmatch See Detail 07/09/23 07/10/23 07/10/23 Range/Units 23:18 01:31 05:26 WBC 12.4 H (3.8-10.6) k/uL RBC 2.80 L (4.30-5.90) m/uL Hgb 8.1 L (13.0-17.5) gm/dL Hct 23.6 L (39.0-53.0) % RDW 17.2 H (11.5-15.5) % ABG pH (7.35-7.45) ABG pCO2 (35-45) mmHg ABG pO2 (83-108) mmHg ABG O2 Saturation (94-97) % Sodium (137-145) mmol/L Potassium 3.3 L (3.5-5.1) mmol/L Carbon Dioxide (22-30) mmol/L Glucose (74-99) mg/dL POC Glucose (mg/dL) 228 H (70-110) mg/dL Calcium (8.4-10.2) mg/dL Ionized Calcium Ramila (4.5-5.3) mg/dL Total Protein (6.3-8.2) g/dL Albumin (3.5-5.0) g/dL Crossmatch 07/10/23 07/10/23 07/10/23 Range/Units 05:26 05:31 06:10 WBC (3.8-10.6) k/uL RBC (4.30-5.90) m/uL Hgb (13.0-17.5) gm/dL Hct (39.0-53.0) % RDW (11.5-15.5) % ABG pH 7.49 H (7.35-7.45) ABG pCO2 30 L (35-45) mmHg ABG pO2 109 H (83-108) mmHg ABG O2 Saturation 98.8 H (94-97) % Sodium 131 L (137-145) mmol/L Potassium (3.5-5.1) mmol/L Carbon Dioxide 20 L (22-30) mmol/L Glucose 177 H (74-99) mg/dL POC Glucose (mg/dL) 226 H (70-110) mg/dL Calcium 6.9 L (8.4-10.2) mg/dL Ionized Calcium Ramila 4.3 L (4.5-5.3) mg/dL Total Protein 4.3 L (6.3-8.2) g/dL Albumin 1.7 L (3.5-5.0) g/dL Crossmatch 07/10/23 Range/Units 11:19 WBC (3.8-10.6) k/uL RBC (4.30-5.90) m/uL Hgb (13.0-17.5) gm/dL Hct (39.0-53.0) % RDW (11.5-15.5) % ABG pH (7.35-7.45) ABG pCO2 (35-45) mmHg ABG pO2 (83-108) mmHg ABG O2 Saturation (94-97) % Sodium (137-145) mmol/L Potassium (3.5-5.1) mmol/L Carbon Dioxide (22-30) mmol/L Glucose (74-99) mg/dL POC Glucose (mg/dL) 219 H (70-110) mg/dL Calcium (8.4-10.2) mg/dL Ionized Calcium Ramila (4.5-5.3) mg/dL Total Protein (6.3-8.2) g/dL Albumin (3.5-5.0) g/dL Crossmatch Microbiology - Last 24 Hours (Table) 07/07/23 14:14 Blood Culture Gram Stain - Final Blood Blood Culture - Final Anaerobic Gm Positive Bacill 07/07/23 14:14 Blood Culture Gram Stain - Final Blood Blood Culture - Final Anaerobic Gm Positive Bacill 07/08/23 00:30 Gram Stain - Preliminary Sputum Sputum Culture - Preliminary Beta Hemolytic Strep Group C 07/08/23 01:53 Urine Culture - Final Urine,Voided 07/07/23 09:04 Gram Stain - Preliminary Back Tissue Culture - Preliminary Gram Neg Bacilli Assessment and Plan (1) Infected decubitus ulcer Current Visit: Yes Status: Acute Code(s): L89.90 - PRESSURE ULCER OF UNSPECIFIED SITE, UNSPECIFIED STAGE; L08.9 - LOCAL INFECTION OF THE SKIN AND SUBCUTANEOUS TISSUE, UNSP SNOMED Code(s): 703630645 (2) Positive blood culture Current Visit: Yes Status: Acute Code(s): R78.81 - BACTEREMIA SNOMED Code(s): 353481801 (3) Sepsis Current Visit: Yes Status: Acute Code(s): A41.9 - SEPSIS, UNSPECIFIED ORGANISM SNOMED Code(s): 75883744 Plan: 1patient presented to hospital with sepsis in this patient who did have a h ypothermia tachycardia elevated white count source is infected sacral pressure ulcer and concern for underlying osteomyelitis in this patient who is status post extensive debridement in the OR completed yesterday and deep culture which are currently pending with Gram stain showing both gram-negative bacilli as well as gram-positive cocci 2local cultures currently growing gram-negative bacilli. 3positive blood culture with gram-positive bacilli question of contamination was related to his infected pressure ulcer blood culture has been repeated currently pending 4we will keep the patient on Zosyn while waiting for the culture to finalize Dictation was produced using [employer] dictation software. please excuse any grammatical, word or spelling errors. Time with Patient: Less than 30
[2023-07-10] MEDS: NOREPINEPHRINE 4 MG in SODIUM CHLORIDE 0.9% 250 ML IV SCH (17:26)
[2023-07-10 17:36] LABS: Glucose,Whole Blood 104 mg/dL (70-110)
[2023-07-10] MEDS: ANIDULAFUNGIN 100 MG in SODIUM CHLORIDE 0.9% 100 ML IVPB SCH (21:33)
[2023-07-10 23:29] LABS: Glucose,Whole Blood 99 mg/dL (70-110)
[2023-07-11] MEDS: INSULIN ASPART (NovoLOG) 100 UNIT/ML VIAL SQ SCH ×4 (00:16→18:46)
[2023-07-11] MEDS: HYDROmorphone 1 MG/ML 1 ML SYRINGE IVP PRN ×4 (00:44→18:10)
[2023-07-11] MEDS: IPRATROPIUM-ALBUTEROL 3 ML NEB INHALATION SCH ×5 (03:45→21:26)
[2023-07-11 05:05] LABS: Glucose,Whole Blood 87 mg/dL (70-110)
[2023-07-11 05:14] LABS: Anisocytosis Slight; HGB 7.6 gm/dL (13.0-17.5); Hypochromasia Slight; MCHC 33.1 g/dL (31.0-37.0); MCV 84.5 fL (80.0-100.0); Mean Platelet Volume 8.6; Platelet Count 185 k/uL (150-450); Poikilocytosis Slight; RBC 2.72 m/uL (4.30-5.90); RDW 17.4 % (11.5-15.5); WBC 8.8 k/uL (3.8-10.6)
[2023-07-11 05:26] LABS: African American GFR (CKD) >90 (>60 ml/min/1.73 sqM); Anion Gap 6 mmol/L; Blood Urea Nitrogen 15 mg/dL (9-20); Calcium 6.9 mg/dL (8.4-10.2); Carbon Dioxide 23 mmol/L (22-30); Chloride 109 mmol/L (98-107); Glucose 70 mg/dL (74-99); Non-African American GFR(CKD) >90 (>60 ml/min/1.73 sqM); Sodium 138 mmol/L (137-145)
[2023-07-11 05:50] LABS: ABG Base Excess 0.6 mmol/L; ABG HCO3 24 mmol/L (21-25); ABG Oxygen Saturation 97.5 % (94-97); ABG PCO2 34 mmHg (35-45); ABG PH 7.46 (7.35-7.45); ABG PO2 87 mmHg (83-108); ABG TCO2 26 mmol/L (19-24); Allen Test Performed? Yes
[2023-07-11] MEDS: POTASSIUM CHLORIDE 20 MEQ in WATER FOR INJECTION 1 100ML.BAG IVPB SCH ×5 (05:52→20:01)
[2023-07-11] MEDS: INSULIN DETEMIR (LEVEMIR) 100 UNIT/ML SYR SQ SCH (06:09)
[2023-07-11] MEDS: LACTOBACILLUS ACIDOPHILUS/PECT 1 EACH CAPSULE PO SCH ×2 (06:09→18:46)
[2023-07-11] MEDS: PIPERACILLIN-TAZOBACTAM 3.375 GM in SODIUM CHLORIDE 0.9% 100 ML IVPB SCH ×3 (08:13→23:44)
[2023-07-11] MEDS: ENOXAPARIN 40 MG/0.4 ML SYRINGE SQ SCH (08:14)
[2023-07-11] MEDS: PANTOPRAZOLE 40 MG/10 ML VIAL IV SCH (08:14)
[2023-07-11] MEDS: CHLORHEXIDINE GLUCONATE 15 ML CUP MUCOUS MEM SCH ×2 (08:14→20:01)
[2023-07-11] MEDS: THIAMINE 100 MG TAB PO SCH (08:14)
[2023-07-11] MEDS: ATORVASTATIN 20 MG TAB PO SCH (08:14)
[2023-07-11] MEDS: NOREPINEPHRINE 4 MG in SODIUM CHLORIDE 0.9% 250 ML IV SCH ×2 (08:16→17:38)
--- NOTE | 2023-07-11 08:28 | XR ---
EXAMINATION TYPE: XR chest 1V portable DATE OF EXAM: 07/11/2023 5:28 AM CLINICAL INDICATION:Male, 63 years old with history of mechanical vent, NGT; COMPARISON: Chest radiographs from 07/10/2023. TECHNIQUE: XR chest 1V portable Frontal view of the chest. FINDINGS: Lungs/Pleura: There is no evidence of pleural effusion, focal consolidation, or pneumothorax. Pulmonary vascularity: Unremarkable. Heart/mediastinum: Cardiomediastinal silhouette is enlarged and stable. Atherosclerotic calcificatio ns are seen in the aorta. Musculoskeletal: No acute osseous pathology. Other findings: None Lines/Tubes: Endotracheal tube with distal tip 5.1 cm above the omega. Nasogastric tube with its distal tip and side-port projecting under the diaphragm. IMPRESSION: Stable exam, Support tubes in appropriate position.
[2023-07-11] MEDS: NYSTATIN 100,000 UNIT/GM POWD 15 GM TOPICAL SCH ×3 (08:42→23:44)
--- NOTE | 2023-07-11 08:45 | P.PN ---
Subjective Progress Note Date: 07/11/23 The patient is a 63-year-old male with multiple comorbid conditions who presented to the emergency room with hypotension and elevated heart rate. He was found to be septic, likely secondary to infected lumbar and sacral decubitus ulcers. He has an extensive cardiac history and has been completely immobile over the last several months. He has not been following up with his primary care provider or inclusion manager. Cardiology has been consulted for elevated troponin, however the patient also developed A. fib with RVR. He converted with an amiodarone bolus and drip. He became bradycardic and this was discontinued over the last 24 hours. He has been successfully weaned off all vasopressors, however continues to have an overall poor prognosis due to the advanced aging of his sacral wound. Attending team has had discussions with the patient's mother regarding comfort care. Decisions hopefully to be made later today. GENERAL: Ill-appearing, obese male and in no acute distress. Currently sedated on ventilator NECK: Supple without JVD or thyromegaly. LUNGS: Breath sounds rhonchorous to auscultation bilaterally. Respiration equal and unlabored. HEART: Irregular rate and rhythm without murmurs, rubs or gallops. S1 and S2 heard. EXTREMITIES: Normal range of motion, mild bilateral edema. Chronic discoloration. TELEMETRY: Rate controlled atrial fibrillation in the 60s to 70s LABS: WBC 8.8, hemoglobin 7.6, hematocrit 23.8, platelet 185, sodium 138, potassium 3.0, BUN 15, creatinine 0.72 IMPRESSION: Septicemia/septic shock Infected lumbar and sacral decubitus ulcers, status post debridement Elevated troponins, secondary to septic shock Acute hypoxic respiratory failure A. fib with RVR Anemia, anticoagulation currently on hold COPD PLAN: No additional recommendations from the cardiac standpoint I am dictating on behalf of Dr Carlos Howe's history/physical and assessment/plan. Objective - Vital Signs Vital signs: Vital Signs Temp 97 F L 07/11/23 04:00 Pulse 84 07/11/23 08:14 Resp 24 07/11/23 07:00 BP 95/64 07/11/23 07:00 Pulse Ox 93 L 07/11/23 07:00 FiO2 35 07/11/23 07:35 Intake & Output 07/10/23 07/11/23 07/11/23 18:59 06:59 18:59 Intake Total 2553.900 2523.348 146 Output Total 1530 2060 50 Balance 1023.900 463.348 96 Weight 155.2 kg Intake: IV 1500 1580 100 Anidulafungin 100 mg In 100 Sodium Chloride 0.9% 100 ml @ 84 mls/hr IVPB HS [facility] Rx#:[id number] Invasive Line 3 70 90 Invasive Line 5 30 90 Piperacillin-Tazobactam 3 200 100 .375 gm In Sodium Chloride 0.9% 100 ml @ 25 mls/hr IVPB Q8HR [facility] Rx# :[id number] Sodium Chloride 0.9% 1, 1200 1200 100 000 ml @ 100 mls/hr IV . Q10H [facility] Rx#:[id number] Intake, IV Titration 411.900 393.348 Amount Amiodarone 450 mg In 95.835 Dextrose 5% in Water 250 ml @ 0.5 MG/MIN 16.667 mls/hr IV .Q15H [facility] Rx#: [id number] Vasopressin 60 unit In 16.065 Sodium Chloride 0.9% 150 ml @ 0.03 UNITS/MIN 4.59 mls/hr IV .Q24H [facility] Rx#: [id number] propofoL 1,000 mg In 300.000 393.348 Empty Bag 1 bag @ 15 MCG/ KG/MIN 12.247 mls/hr IV . Q8H10M [facility] Rx#:[id number] Tube Feeding 552 460 46 Other 90 90 Output: Urine 1530 1985 50 Stool 75 Other: Voiding Method Indwelling Catheter Indwelling Catheter ABP, PAP, CO, CI - Last Documented Arterial Blood Pressure 95/49 - Labs CBC & Chem 7: 07/11/23 05:00 07/11/23 05:00 Labs: Abnormal Lab Results - Last 24 Hours (Table) 07/10/23 07/11/23 07/11/23 Range/Units 11:19 05:00 05:00 RBC 2.72 L (4.30-5.90) m/uL Hgb 7.6 L (13.0-17.5) gm/dL Hct 23.0 L (39.0-53.0) % RDW 17.4 H (11.5-15.5) % ABG pH (7.35-7.45) ABG pCO2 (35-45) mmHg ABG Total CO2 (19-24) mmol/L ABG O2 Saturation (94-97) % Potassium 3.0 L (3.5-5.1) mmol/L Chloride 109 H (98-107) mmol/L Glucose 70 L (74-99) mg/dL POC Glucose (mg/dL) 219 H (70-110) mg/dL Calcium 6.9 L (8.4-10.2) mg/dL 07/11/23 Range/Units 05:46 RBC (4.30-5.90) m/uL Hgb (13.0-17.5) gm/dL Hct (39.0-53.0) % RDW (11.5-15.5) % ABG pH 7.46 H (7.35-7.45) ABG pCO2 34 L (35-45) mmHg ABG Total CO2 26 H (19-24) mmol/L ABG O2 Saturation 97.5 H (94-97) % Potassium (3.5-5.1) mmol/L Chloride (98-107) mmol/L Glucose (74-99) mg/dL POC Glucose (mg/dL) (70-110) mg/dL Calcium (8.4-10.2) mg/dL Microbiology - Last 24 Hours (Table) 07/09/23 10:50 Blood Culture - Preliminary Blood 07/07/23 14:14 Blood Culture Gram Stain - Final Blood Blood Culture - Final Anaerobic Gm Positive Bacill 07/07/23 14:14 Blood Culture Gram Stain - Final Blood Blood Culture - Final Anaerobic Gm Positive Bacill 07/08/23 00:30 Gram Stain - Preliminary Sputum Sputum Culture - Preliminary Beta Hemolytic Strep Group C
[2023-07-11] MEDS: NICOTINE 14MG/24HR PATCH TRANSDERM SCH (08:48)
[2023-07-11] MEDS: fentaNYL (PF) 50 MCG/ML 2 ML AMP IVP PRN ×2 (08:50→22:36)
[2023-07-11 10:19] VITALS: BMI 42.7
[2023-07-11 11:38] LABS: Glucose,Whole Blood 98 mg/dL (70-110)
--- NOTE | 2023-07-11 12:15 | P.PN ---
Subjective Progress Note Date: 07/11/23 CHIEF COMPLAINT: Sacral decubitus ulcer HISTORY OF PRESENT ILLNESS: Patient postop day #4 status post wide excisional debridement of necrotic sacral decubitus ulcer. Patient currently remains in the ICU and intubated. Patient is off of pressors. Afebrile . WBC has normalized from Toprol 0.4-8.8 hemoglobin 7.6 platelets 185 potassium is 3.0 and being replaced. Awaiting family's decision regarding proceeding with comfort care. PHYSICAL EXAM: VITAL SIGNS: Reviewed. GENERAL: Intubated and sedated ABDOMEN: Soft. Nondistended. Nontender. ASSESSMENT: 1. Severe Necrotic sacral decubitus ulcer status post debridement 2. Sepsis 3. Hypokalemia PLAN: -Recommend comfort care measures. Awaiting family's decision. -Patient may eventually need a diverting colostomy when medically stable -Continue antibiotics -Continue local wound care -Continue ICU management Physician Adult Basic Education Instructor note has been reviewed by physician. Signing provider agrees with the documented findings, assessment, and plan of care. Objective - Vital Signs Vital signs: Vital Signs Temp 97.5 F L 07/11/23 08:00 Pulse 85 07/11/23 09:00 Resp 24 07/11/23 09:00 BP 102/69 07/11/23 09:00 Pulse Ox 97 07/11/23 09:00 FiO2 35 07/11/23 08:00 Intake & Output 07/10/23 07/11/23 07/11/23 18:59 06:59 18:59 Intake Total 2553.900 2523.348 796 Output Total 1530 2060 150 Balance 1023.900 463.348 646 Weight 155.2 kg 155.2 kg Intake: IV 1500 1580 500 Anidulafungin 100 mg In 100 Sodium Chloride 0.9% 100 ml @ 84 mls/hr IVPB HS [facility] Rx#:[id number] Invasive Line 3 70 90 Invasive Line 5 30 90 Piperacillin-Tazobactam 3 200 100 100 .375 gm In Sodium Chloride 0.9% 100 ml @ 25 mls/hr IVPB Q8HR [facility] Rx# :[id number] Potassium Chloride 20 meq 100 In Water For Injection 1 100ml.bag @ 50 mls/hr IVPB Q2H [facility] Rx#: [id number] Sodium Chloride 0.9% 1, 1200 1200 300 000 ml @ 100 mls/hr IV . Q10H [facility] Rx#:[id number] Intake, IV Titration 411.900 393.348 100 Amount Amiodarone 450 mg In 95.835 Dextrose 5% in Water 250 ml @ 0.5 MG/MIN 16.667 mls/hr IV .Q15H [facility] Rx#: [id number] Vasopressin 60 unit In 16.065 Sodium Chloride 0.9% 150 ml @ 0.03 UNITS/MIN 4.59 mls/hr IV .Q24H [facility] Rx#: [id number] propofoL 1,000 mg In 300.000 393.348 100 Empty Bag 1 bag @ 15 MCG/ KG/MIN 12.247 mls/hr IV . Q8H10M [facility] Rx#:[id number] Tube Feeding 552 460 196 Other 90 90 Output: Urine 1530 1985 150 Stool 75 Other: Voiding Method Indwelling Catheter Indwelling Catheter ABP, PAP, CO, CI - Last Documented Arterial Blood Pressure 60/49 - Labs CBC & Chem 7: 07/11/23 05:00 07/11/23 05:00 Labs: Abnormal Lab Results - Last 24 Hours (Table) 07/10/23 07/11/23 07/11/23 Range/Units 11:19 05:00 05:00 RBC 2.72 L (4.30-5.90) m/uL Hgb 7.6 L (13.0-17.5) gm/dL Hct 23.0 L (39.0-53.0) % RDW 17.4 H (11.5-15.5) % ABG pH (7.35-7.45) ABG pCO2 (35-45) mmHg ABG Total CO2 (19-24) mmol/L ABG O2 Saturation (94-97) % Potassium 3.0 L (3.5-5.1) mmol/L Chloride 109 H (98-107) mmol/L Glucose 70 L (74-99) mg/dL POC Glucose (mg/dL) 219 H (70-110) mg/dL Calcium 6.9 L (8.4-10.2) mg/dL 07/11/23 Range/Units 05:46 RBC (4.30-5.90) m/uL Hgb (13.0-17.5) gm/dL Hct (39.0-53.0) % RDW (11.5-15.5) % ABG pH 7.46 H (7.35-7.45) ABG pCO2 34 L (35-45) mmHg ABG Total CO2 26 H (19-24) mmol/L ABG O2 Saturation 97.5 H (94-97) % Potassium (3.5-5.1) mmol/L Chloride (98-107) mmol/L Glucose (74-99) mg/dL POC Glucose (mg/dL) (70-110) mg/dL Calcium (8.4-10.2) mg/dL Microbiology - Last 24 Hours (Table) 07/09/23 10:50 Blood Culture - Preliminary Blood 07/07/23 14:14 Blood Culture Gram Stain - Final Blood Blood Culture - Final Anaerobic Gm Positive Bacill 07/07/23 14:14 Blood Culture Gram Stain - Final Blood Blood Culture - Final Anaerobic Gm Positive Bacill 07/08/23 00:30 Gram Stain - Preliminary Sputum Sputum Culture - Preliminary Beta Hemolytic Strep Group C
--- NOTE | 2023-07-11 13:56 | P.PN ---
Subjective Progress Note Date: 07/11/23 Principal diagnosis: Septic shock and acute hypoxic respiratory failure I am seeing this patient in consultation today 07/08/2023 in the intensive care unit after presenting to the emergency room yesterday afternoon. He was found to have a large sacral decubitus ulcer that was felt to be infected. He underwent excisional debridement of the necrotic sacral decubitus ulcer late last night. He was then transferred to the intensive care unit and remains on the ventilator. Patient is a 63-year-old white male with past medical history significant for atrial fibrillation, hypertension, hyperlipidemia, COPD, chronic ongoing tobacco dependence, alcoholism, among other things. As stated, the patient is currently intubated on the mechanical ventilator, and unable to provide any history. Patient's mother is at the bedside, reports that over the last month or so the patient has been fairly dependent in his chair. He's been very weak and unable to ambulate. She has been bringing him food. He likely hasn't been taking his medications for the last 2 weeks because he ran out. He's had ongoing issues with diarrhea and cannot get to the bathroom. On arrival to the emergency room, he was found to have a very large sacral decubitus pressure ulcer. It was felt to be infected with areas of necrosis and purulent drainage. A CT of the abdomen and pelvis demonstrated a large sacral decubitus ulcer with exposed sacral and coccyx bone. No organizing fluid collections to suggest abscess. There was gas tracking along the myofascial planes in the buttocks/pelvic region felt to be likely due to a large defect and skin/subcutaneous tissue. No definitive osteomyelitis noted. There is subcutaneous edema throughout the soft tissues around the pelvis. There was bilateral pleural effusions, cardiomegaly, and a nonobstructive left renal calculus. Patient was taken to the OR for debridement late last night. He is currently in the intensive care unit and intubated to the mechanical ventilator. Ventilator settings are assist control, respiratory rate 24, tidal volume 500, FiO2 50%, PEEP of 5. These were adjusted based on the most recent ABG including a PaO2 of 384, pCO2 49, pH is 7.27. Post-op chest x-ray demonstrates the endotracheal tube above the omega. There is a orogastric tube coursing below the diaphragm. Chest x-ray shows cardiomegaly, pulmonary vasculature congestion, and bilateral pleural effusions with associated atelectasis. He is sedated on propofol at 30 mcg/kg/m. Fairly synchronous with mechanical ventilator. Heart rhythm is atrial fibrillation with rapid ventricular rate ranging from 140-180 bpm. Blood pressure was hypotensive and he was bolused 3 L normal saline. Then started on vasopressors with norepinephrine infusing at 0.1 mcg/kg/m. Blood pressure remains labile and fluctuates with extreme tachycardia. Amiodarone was started per protocol and he was bolused 150 mg and is currently infusing at 1 mg/m. A femoral central line catheter was established in OR. Patient appears septic, and is empirically covered with a combination of Zosyn and vancomycin. Pancultures are pending. C. diff EIA is pending. Most recent CBC shows a WBC count of 31.5, hemoglobin 9.1, hematocrit 28.8, platelets 351. CMV has a sodium 132, potassium 3.6, chloride 106, serum bicarb 19, BUN 19, creatinine 0.73, glucose 157. Magnesium is 1.4 and is being replaced. Lactic acid level was elevated at 4.2 and is down to 3.1. Prognosis is guarded and his condition is currently critical. He is being monitored in the intensive care unit. Patient was reevaluated today on 07/09/2023, remains in the ICU, intubated and mechanically ventilated. Patient is on assist control rate of 24 tidal volume 500 FiO2 40% and PEEP of 5 ABG showed a pO2 of 170 pCO2 32 pH of 7.40 hence his FiO2 was cut down to 35%. Patient remains in atrial fibrillation, he is on amiodarone at 1 mcg/m, vasopressin at 0.04 units per minute, norepinephrine at 0.01 mcg/kg/m propofol at 40 mcg/kg/m patient remains on Zosyn and vancomycin and an axis. His IV fluid is 0.9 normal saline at 100 mL/h. He did receive Lasix yesterday and he had a significant urine output, hemoglobin today however is down to 7.1, and that is most likely from his blood loss from his debridement of the sacral decubitus ulcer history definite improvement today compared to yesterday, nonetheless the patient remains critically ill, remains septic and requiring pressors. However his heart rate is better controlled blood pressure is better controlled and he is on (compared to yesterday. The plan is to discontinue norepinephrine and continue vasopressin for now. And we will continue fluids at 100 mL/h nonetheless the patient will receive another dose of Lasix today as he received significant fluid boluses yesterday for low blood pressure. And the patient is known to have history of LV dysfunction. WBC count today is 13.2 hemoglobin is 7.1, potassium 3.2 BUN is normal creatinine is normal chest x-ray showed bilateral small pleural effusions, no pneumonia, Patient was reevaluated today on 07/10/23, remains in the ICU intubated and mechanically ventilated. Patient is on assist control rate of 24 tidal volume 500 FiO2 35% and PEEP of 5 remains on vasopressin at 0.03 units per minute, he is on propofol at 40 mcg/kg/m. ABG showed a pO2 of 109 pCO2 30 pH of 7.49 IV fluid is at 100 mL per hour. Overall the patient is showing improvement, however the surgeon clearly stated that he is recommending comfort care measures considering the extensiveness of the wound that this patient has and he doesn't believe that the patient will make it with Extensive one in the buttocks area. No plans for any further debridement according to the surgeon, and today I went ahead and had a discussion with the patient's mother, and gave the patient's mother the option of comfort care measures or back option of continuing full support. Apparently the mother is saying that she is very well aware of his poor overall clinical status and she is basically almost ready to make a decision to go to comfort care because she does not want him to suffer anymore. Apparently his quality of life has been very miserable and extremely poor. WBC count today is 12.4 hemoglobin 8.1 basic metabolic profile is normal and renal profile is normal chest x-ray this morning showed endotracheal tube to be at 4.7 cm above the omega and the patient has low lung volumes, stable support tubes noted. Patient was evaluated today on 07/11/23, remains in the ICU, intubated and mechanically ventilated, patient is on assist control rate of 24 tidal volume 500 FiO2 35% and PEEP of 5 ABG showed a pO2 of 87 pCO2 34 pH of 7.46. Hence no changes were made in his ventilator settings. Patient is hemodynamically stable, not requiring any pressors, he is on propofol at 35 mcg/kg/m he is also receiving vital HP and he is on an axis and Zosyn. Yesterday I had a long discussion with his mother and explained to the mother the recommendations of the surgeons on the case feeling that the patient has very poor prognosis, and his mortality is considered extremely high, the surgeons are recommending comfort care measures no plans to go back and to any further debridement. Today the patient will have at least a sedation interruption trial, and at least assessment of mental status. Mother is still undecided about the issue of comfort care, hopefully she will make a decision today. WBC count today is 8.8 hemoglobin is 7.6. Basic metabolic profile is normal potassium is 3.0, being addressed as per protocol chest x-ray continues to show bilateral pleural effusions right more so than left patient will receive a dose of Lasix today. Objective - Vital Signs Vital signs: Vital Signs Temp 97.5 F L 07/11/23 08:00 Pulse 84 07/11/23 11:26 Resp 24 07/11/23 11:00 BP 107/67 07/11/23 11:00 Pulse Ox 98 07/11/23 11:00 FiO2 35 07/11/23 11:08 Intake & Output 07/10/23 07/11/23 07/11/23 18:59 06:59 18:59 Intake Total 2553.900 2523.348 1546 Output Total 1530 2060 350 Balance 1023.900 656.845 9938 Weight 155.2 kg 155.2 kg Intake: IV 1500 1580 1010 Anidulafungin 100 mg In 100 Sodium Chloride 0.9% 100 ml @ 84 mls/hr IVPB HS [facility] Rx#:[id number] Invasive Line 3 70 90 Invasive Line 5 30 90 10 Piperacillin-Tazobactam 3 200 100 100 .375 gm In Sodium Chloride 0.9% 100 ml @ 25 mls/hr IVPB Q8HR [facility] Rx# :[id number] Potassium Chloride 20 meq 200 In Water For Injection 1 100ml.bag @ 50 mls/hr IVPB Q2H [facility] Rx#: [id number] Sodium Chloride 0.9% 1, 1200 1200 700 000 ml @ 100 mls/hr IV . Q10H [facility] Rx#:[id number] Intake, IV Titration 411.900 393.348 200 Amount Amiodarone 450 mg In 95.835 Dextrose 5% in Water 250 ml @ 0.5 MG/MIN 16.667 mls/hr IV .Q15H [facility] Rx#: [id number] Vasopressin 60 unit In 16.065 Sodium Chloride 0.9% 150 ml @ 0.03 UNITS/MIN 4.59 mls/hr IV .Q24H [facility] Rx#: [id number] propofoL 1,000 mg In 300.000 393.348 200 Empty Bag 1 bag @ 15 MCG/ KG/MIN 12.247 mls/hr IV . Q8H10M [facility] Rx#:[id number] Tube Feeding 552 460 276 Other 90 90 60 Output: Urine 1530 1985 350 Stool 75 Other: Voiding Method Indwelling Catheter Indwelling Catheter Indwelling Catheter ABP, PAP, CO, CI - Last Documented Arterial Blood Pressure 99/52 - Exam GENERAL EXAM: Revealed 63-year-old white male obese, intubated and mechanically ventilated. HEAD: Normocephalic and atraumatic EYES: Normal reaction of pupils, equal size. NOSE: Clear with pink turbinates. THROAT: No erythema or exudates endotracheal tube and orogastric tube are intact.. NECK: No masses, no JVD. Short obese neck is noted. CHEST: No chest wall deformity. LUNGS: Diminished breath sounds at the bases no crackles or rhonchi or wheezes CVS: S1 and S2 normal with no audible murmur, irregular rhythm. ABDOMEN: Obese, No hepatosplenomegaly, active bowel sounds, no guarding or rigidity. SKIN: Fungal dermatitis noted underneath neck folds, breasts, and abdominal folds. Sacral decubitus debridement site is dressed with postoperative d ressings. CENTRAL NERVOUS SYSTEM: Sedated on propofol, unable to assess Psychiatric: Unable to assess EXTREMITIES: Chronic venous stasis changes with mild to moderate nonpitting edema. No clubbing, or cyanosis. Peripheral pulses are intact. - Labs CBC & Chem 7: 07/11/23 05:00 07/11/23 05:00 Labs: Abnormal Lab Results - Last 24 Hours (Table) 07/11/23 07/11/23 07/11/23 Range/Units 05:00 05:00 05:46 RBC 2.72 L (4.30-5.90) m/uL Hgb 7.6 L (13.0-17.5) gm/dL Hct 23.0 L (39.0-53.0) % RDW 17.4 H (11.5-15.5) % ABG pH 7.46 H (7.35-7.45) ABG pCO2 34 L (35-45) mmHg ABG Total CO2 26 H (19-24) mmol/L ABG O2 Saturation 97.5 H (94-97) % Potassium 3.0 L (3.5-5.1) mmol/L Chloride 109 H (98-107) mmol/L Glucose 70 L (74-99) mg/dL Calcium 6.9 L (8.4-10.2) mg/dL Microbiology - Last 24 Hours (Table) 07/10/23 06:35 Blood Culture - Preliminary Blood 07/08/23 00:30 Gram Stain - Final Sputum Sputum Culture - Final Haemophilus influenzae Beta Hemolytic Strep Group C 07/09/23 10:50 Blood Culture - Preliminary Blood 07/07/23 14:14 Blood Culture Gram Stain - Final Blood Blood Culture - Final Anaerobic Gm Positive Bacill 07/07/23 14:14 Blood Culture Gram Stain - Final Blood Blood Culture - Final Anaerobic Gm Positive Bacill Assessment and Plan Assessment: Impression: Septic shock, primary source is infected large sacral decubitus ulcer, this is a relatively large and extensive wound involving the sacral decubitus area. Infected large sacral decubitus ulcer with secondary sepsis status postoperative day #3 following large excisional debridement. Acute hypoxemic and hypercapnic respiratory failure, requiring intubation and mechanical ventilation, multifactorial mostly related to his septic shock and his bilateral pleural effusion/congestive heart failure/systolic in nature Paroxysmal Atrial fibrillation with rapid ventricular rate, currently on amiodarone infusion per protocol. Acute blood loss anemia, expected outcome of surgery Diarrhea, check C. diff Possible UTI fungal dermatitis involving his axillary region and groin bilaterally Chronic obstructive pulmonary disease, stable Chronic ongoing tobacco dependence History of alcoholism, last drink reportedly 6 weeks ago History of hypertension History of hyperlipidemia Obesity, with a BMI of 37.5 kg/m Recommendation: Continue ventilatory support Continue hemodynamic support/, patient is not requiring any pressors at this point but will use if necessary. Continue nutritional support/enteral feeding Continue antibiotics Continue GI and DVT prophylaxis Intermittent gentle diuresis. Will recommend Lasix 40 mg IV push daily Continue to monitor daily labs Mother to decide and let us know about CODE STATUS and possibly comfort care measures Patient remains critically ill, We'll continue to follow. Critical care time is over 30 minutes Time with Patient: Greater than 30
--- NOTE | 2023-07-11 14:23 | P.PN ---
Subjective Progress Note Date: 07/11/23 Pt remains intubated, sedated. Poor wound healing opportunity as patient cannot be proned to offload wound given his instability. Per surgery, patient's wound is unlikely to heal and he is likely a hospice candidate. Pulmonology having goals of care discussion with patient's mother General: intubated, sedated HEENT: normocephalic, atraumatic, no tracheal deviation Respiratory: symmetric chest rise, no cyanosis, ventilator dependent CVS: perfusing all extremities, no distal gangrene, present pitting edema GI: soft, ND : no SPT, no CVAT, abbott is present Neuro: sedated Hospital course: Patient is a 63-year-old male with permanent atrial fibrillation, COPD, hypertension, congestive heart failure per patient, and chronic lower extremity weakness who presented to the ER due to increased congestion. On arrival to the ER his vital signs were remarkable for a blood pressure of 83/37 and a pulse of 113. Laboratory analysis included CBC, coags, CMP, CK, and lactic acid which were remarkable for white blood cell count 24.1, hemoglobin 11.6, sodium 132, and lactic acid of 4.2. On arrival to the emergency department the patient was covered in feces and was desheveled. He was started on vancomycin, and Rocephin. He was seen by pulmonary and Eraxis was added. He received 2 L of IV fluids but remained hypotensive. I contacted general surgery who came in to see the patient and took him to the OR. He underwent an urgent wide excisional debrided of necrotic sacral decubitus ulcer. He was subsequently taken to the ICU he was intubated. He did require multiple vasopressors to be added including levo and days ago. He then developed atrial fibrillation with rapid ventricular response and amiodarone was initiated. Cardiology consult was placed. Echocardiogram showed ejection fraction 30-35% but may be underestimated due to tachycardia. CT abdomen and pelvis did confirm a large ulcer with exposed bone. Assessment/Plan: Infected lumbar and sacral decubitus ulcer with severe sepsis Functional quadralplegia with b/l le flexion contracture B/l Heel stage II pressure ulcures Severe Protein calorie malnutrition Class II obesity with BMI 37.5 Possibel Gram + bacilli bacteremia - Eraxis 100 mg daily daily #5 - Zosyn 3.375 g IV piggyback every 8 hours day #5 - Vancomycin IV piggyback daily #4, monitor creatinine and a trough for signs of toxicity. - Wean vasopressin as able - await final blood cultures -Pulmonary note reviewed: Patient holiday to assess mental status. -Await further infectious disease recommendations - Surgery recs: will possibly need repeat debridement and diverting colostomy once more stable. Acute blood loss anemia, anticipated outcome of surgery -Anticipate patient have continued blood loss giving need for surgical debridement over such a large area. -No transfusion required on 07/11 -Repeat CBC in a.m. Acute exacerbation of systolic CHF with EF 30-35% (me be under estimated due to tachycardia) Permanent atrial fibrillation with rapid ventricular response HTN -Cardiology following -Amiodarone infusion has been discontinued -Holding off anticoagulation until hemoglobin stabilizes and cleared by surgery Hyperglycemia -Add 10 units of Levemir, continue sliding scale insulin Imaging: Chest x-ray personally interpreted on 07/10, OG tube, ET tube are well placed, low expiratory volume, Data Review: CBC: White blood cell count 12.4, hemoglobin 8.1 Basic metabolic panel: Sodium 131, CO2 20 Liver function tests: Albumin 1.7 Vancomycin trough: 20.4 Capillary blood glucose: 202-226 Blood cultures are positive for gram-positive bacilli, tissue cultures positive for gram-negative bacilli DVT prophylaxis: Lovenox Poor overall prognosis Anticipated discharge date: Pending Clinical Course Anticipated discharge place: Pending Clinical Course This dictation was prepared using [employer] voice recognition software. Though every attempt is made to correct errors during dictation some may still exist. Objective - Vital Signs Vital signs: Vital Signs Temp 97.5 F L 07/11/23 08:00 Pulse 72 07/11/23 13:00 Resp 24 07/11/23 13:00 BP 97/74 07/11/23 13:00 Pulse Ox 97 07/11/23 13:00 FiO2 35 07/11/23 12:00 Intake & Output 07/10/23 07/11/23 07/11/23 18:59 06:59 18:59 Intake Total 2553.900 2523.348 1636 Output Total 1530 2060 410 Balance 1023.900 769.807 2399 Weight 155.2 kg 155.2 kg Intake: IV 1500 1580 1100 Anidulafungin 100 mg In 100 Sodium Chloride 0.9% 100 ml @ 84 mls/hr IVPB HS [facility] Rx#:[id number] Invasive Line 3 70 90 Invasive Line 5 30 90 Piperacillin-Tazobactam 3 200 100 100 .375 gm In Sodium Chloride 0.9% 100 ml @ 25 mls/hr IVPB Q8HR [facility] Rx# :[id number] Potassium Chloride 20 meq 200 In Water For Injection 1 100ml.bag @ 50 mls/hr IVPB Q2H [facility] Rx#: [id number] Sodium Chloride 0.9% 1, 1200 1200 800 000 ml @ 100 mls/hr IV . Q10H [facility] Rx#:[id number] Intake, IV Titration 411.900 393.348 200 Amount Amiodarone 450 mg In 95.835 Dextrose 5% in Water 250 ml @ 0.5 MG/MIN 16.667 mls/hr IV .Q15H [facility] Rx#: [id number] Vasopressin 60 unit In 16.065 Sodium Chloride 0.9% 150 ml @ 0.03 UNITS/MIN 4.59 mls/hr IV .Q24H [facility] Rx#: [id number] propofoL 1,000 mg In 300.000 393.348 200 Empty Bag 1 bag @ 15 MCG/ KG/MIN 12.247 mls/hr IV . Q8H10M [facility] Rx#:[id number] Tube Feeding 552 460 276 Other 90 90 60 Output: Urine 1530 1985 410 Stool 75 Other: Voiding Method Indwelling Catheter Indwelling Catheter Indwelling Catheter ABP, PAP, CO, CI - Last Documented Arterial Blood Pressure 98/52 - Labs CBC & Chem 7: 07/11/23 05:00 07/11/23 05:00 Labs: Abnormal Lab Results - Last 24 Hours (Table) 07/11/23 07/11/23 07/11/23 Range/Units 05:00 05:00 05:46 RBC 2.72 L (4.30-5.90) m/uL Hgb 7.6 L (13.0-17.5) gm/dL Hct 23.0 L (39.0-53.0) % RDW 17.4 H (11.5-15.5) % ABG pH 7.46 H (7.35-7.45) ABG pCO2 34 L (35-45) mmHg ABG Total CO2 26 H (19-24) mmol/L ABG O2 Saturation 97.5 H (94-97) % Potassium 3.0 L (3.5-5.1) mmol/L Chloride 109 H (98-107) mmol/L Glucose 70 L (74-99) mg/dL Calcium 6.9 L (8.4-10.2) mg/dL Microbiology - Last 24 Hours (Table) 07/10/23 06:35 Blood Culture - Preliminary Blood 07/08/23 00:30 Gram Stain - Final Sputum Sputum Culture - Final Haemophilus influenzae Beta Hemolytic Strep Group C 07/09/23 10:50 Blood Culture - Preliminary Blood 07/07/23 14:14 Blood Culture Gram Stain - Final Blood Blood Culture - Final Anaerobic Gm Positive Bacill 07/07/23 14:14 Blood Culture Gram Stain - Final Blood Blood Culture - Final Anaerobic Gm Positive Bacill
[2023-07-11] MEDS: FUROSEMIDE 10 MG/ML 4 ML VIAL IV SCH (15:02)
--- NOTE | 2023-07-11 16:51 | P.PN ---
Subjective Progress Note Date: 07/11/23 Principal diagnosis: Reason for follow-up is sepsis and infected sacral pressure ulcer. Patient is a 63-year-old male with a past medical history negative for hypertension COPD atrial flutter atrial fibrillation patient was brought into the hospital for evaluation of weakness diarrhea patient was noticed to have extensive sacral pressure ulcer also noticed to be septic in this patient with status post extensive debridement of the sacral wound which is extending down to the coccyx and the patient was subsequently admitted to the ICU. On today's evaluation there is that is 07/11/2023, the patient remains to be afebrile, patient remains to be debated on the vent FiO2 is down to 35% no significant purulent secretions through the ET vomiting or any worsening diarrhe a has been reported by the nursing staff patient requiring less pressor support. The patient white count is normal at 8.8, creatinine 0.72, repeat blood cultures pending sputum is growing Haemophilus influenzae and group C strep Objective - Vital Signs Vital signs: Vital Signs Temp 97.5 F L 07/11/23 08:00 Pulse 84 07/11/23 11:26 Resp 24 07/11/23 11:00 BP 107/67 07/11/23 11:00 Pulse Ox 98 07/11/23 11:00 FiO2 35 07/11/23 11:08 Intake & Output 07/10/23 07/11/23 07/11/23 18:59 06:59 18:59 Intake Total 2553.900 2523.348 1170 Output Total 1530 2060 275 Balance 1023.900 463.348 895 Weight 155.2 kg 155.2 kg Intake: IV 1500 1580 810 Anidulafungin 100 mg In 100 Sodium Chloride 0.9% 100 ml @ 84 mls/hr IVPB HS [facility] Rx#:[id number] Invasive Line 3 70 90 Invasive Line 5 30 90 10 Piperacillin-Tazobactam 3 200 100 100 .375 gm In Sodium Chloride 0.9% 100 ml @ 25 mls/hr IVPB Q8HR [facility] Rx# :[id number] Potassium Chloride 20 meq 200 In Water For Injection 1 100ml.bag @ 50 mls/hr IVPB Q2H [facility] Rx#: [id number] Sodium Chloride 0.9% 1, 1200 1200 500 000 ml @ 100 mls/hr IV . Q10H [facility] Rx#:[id number] Intake, IV Titration 411.900 393.348 100 Amount Amiodarone 450 mg In 95.835 Dextrose 5% in Water 250 ml @ 0.5 MG/MIN 16.667 mls/hr IV .Q15H [facility] Rx#: [id number] Vasopressin 60 unit In 16.065 Sodium Chloride 0.9% 150 ml @ 0.03 UNITS/MIN 4.59 mls/hr IV .Q24H [facility] Rx#: [id number] propofoL 1,000 mg In 300.000 393.348 100 Empty Bag 1 bag @ 15 MCG/ KG/MIN 12.247 mls/hr IV . Q8H10M [facility] Rx#:[id number] Tube Feeding 552 460 230 Other 90 90 30 Output: Urine 1530 1985 275 Stool 75 Other: Voiding Method Indwelling Catheter Indwelling Catheter Indwelling Catheter ABP, PAP, CO, CI - Last Documented Arterial Blood Pressure 99/52 - Exam GENERAL DESCRIPTION: Middle-age male intubated on the vent RESPIRATORY SYSTEM: Unlabored breathing , decreased breath sounds at bases HEART: S1 S2 regular rate and rhythm , ABDOMEN: Soft , no tenderness EXTREMITIES: Diffuse swelling to both legs no redness. - Labs CBC & Chem 7: 07/11/23 05:00 07/11/23 15:35 Labs: Abnormal Lab Results - Last 24 Hours (Table) 07/11/23 07/11/23 07/11/23 Range/Units 05:00 05:00 05:46 RBC 2.72 L (4.30-5.90) m/uL Hgb 7.6 L (13.0-17.5) gm/dL Hct 23.0 L (39.0-53.0) % RDW 17.4 H (11.5-15.5) % ABG pH 7.46 H (7.35-7.45) ABG pCO2 34 L (35-45) mmHg ABG Total CO2 26 H (19-24) mmol/L ABG O2 Saturation 97.5 H (94-97) % Potassium 3.0 L (3.5-5.1) mmol/L Chloride 109 H (98-107) mmol/L Glucose 70 L (74-99) mg/dL Calcium 6.9 L (8.4-10.2) mg/dL Microbiology - Last 24 Hours (Table) 07/08/23 00:30 Gram Stain - Final Sputum Sputum Culture - Final Haemophilus influenzae Beta Hemolytic Strep Group C 07/09/23 10:50 Blood Culture - Preliminary Blood 07/07/23 14:14 Blood Culture Gram Stain - Final Blood Blood Culture - Final Anaerobic Gm Positive Bacill 07/07/23 14:14 Blood Culture Gram Stain - Final Blood Blood Culture - Final Anaerobic Gm Positive Bacill Assessment and Plan (1) Infected decubitus ulcer Current Visit: Yes Status: Acute Code(s): L89.90 - PRESSURE ULCER OF UNSPECIFIED SITE, UNSPECIFIED STAGE; L08.9 - LOCAL INFECTION OF THE SKIN AND SUBCUTANEOUS TISSUE, UNSP SNOMED Code(s): 716339505 (2) Positive blood culture Current Visit: Yes Status: Acute Code(s): R78.81 - BACTEREMIA SNOMED Code(s): 258131760 (3) Sepsis Current Visit: Yes Status: Acute Code(s): A41.9 - SEPSIS, UNSPECIFIED ORGANISM SNOMED Code(s): 06235663 Plan: 1patient presented to hospital with sepsis in this patient who did have a hypothermia tachycardia elevated white count source is infected sacral pressure ulcer and concern for underlying osteomyelitis in this patient who is status post extensive debridement in the OR completed yesterday and deep culture which are currently pending with Gram stain showing both gram-negative bacilli as well as gram-positive cocci 2local cultures currently growing gram-negative bacilli. 3positive blood culture with gram-positive bacilli question of contamination was related to his infected pressure ulcer blood culture has been repeated currently pending, Sputum culture growing haemophilus and group C strep. 4patient is currently covered with [employer] to continue and monitor clinical course closely Dictation was produced using [employer] dictation software. please excuse any grammatical, word or spelling errors. Time with Patient: Less than 30
[2023-07-11 18:04] LABS: Glucose,Whole Blood 95 mg/dL (70-110)
[2023-07-11] MEDS: SODIUM CHLORIDE 0.9% 1,000 ML IV SCH ×2 (18:53→18:54)
--- NOTE | 2023-07-11 19:01 | XR ---
EXAMINATION TYPE: XR chest 1V DATE OF EXAM: 07/11/2023 6:54 PM CLINICAL INDICATION:Male, 63 years old with history of NG placement; COMPARISON: Chest radiographs from 07/11/2023. TECHNIQUE: XR chest 1V Frontal view of the chest. FINDINGS: Lungs/Pleura: There is no evidence of pleural effusion, focal consolidation, or pneumothorax. Pulmonary vascularity: Unremarkable. Heart/mediastinum: Cardiomediastinal silhouette is unremarkable. Musculoskeletal: No acute osseous pathology. Other findings: None Lines/Tubes: Nasogastric tube with side-port projecting over the distal esophagus. IMPRESSION: Nasogastric tube with distal side-port in the distal esophagus consider advancement about 10 cm for o ptimal placement.
[2023-07-11] MEDS: ANIDULAFUNGIN 100 MG in SODIUM CHLORIDE 0.9% 100 ML IVPB SCH (20:01)
--- NOTE | 2023-07-11 20:40 | XR ---
EXAMINATION TYPE: XR chest 1V portable DATE OF EXAM: 07/11/2023 8:36 PM CLINICAL INDICATION:Male, 63 years old with history of NGT placement; COMPARISON: Chest radiographs from 07/11/2023. TECHNIQUE: XR chest 1V portable Frontal view of the chest. FINDINGS: Lungs/Pleura: Prominent interstitial lung markings are seen scattered throughout the lungs with feliz ening of the diaphragm and increased lucency of the lung apices. No evidence of focal consolidation, pneumothorax or pleural effusion. Pulmonary vascularity: Unremarkable. Heart/mediastinum: Cardiomediastinal silhouette is enlarged and stable. Musculoskeletal: No acute osseous pathology. Other findings: None Lines/Tubes: Endotracheal tube with distal tip 6.4 cm above the omega. Nasogastric tube with its distal tip and side-port projecting under the diaphragm. IMPRESSION: 1. Nasogastric tube now diaphragm. 2. Endotracheal tube in similar position 6.4 centers of the omega. Consider advancement of 3 to 4 c m for optimal placement.
[2023-07-11 23:56] LABS: Glucose,Whole Blood 102 mg/dL (70-110)
[2023-07-12 00:01] LABS: Glucose,Whole Blood 95 mg/dL (70-110)
[2023-07-12] MEDS: INSULIN ASPART (NovoLOG) 100 UNIT/ML VIAL SQ SCH ×5 (00:42→23:43)
[2023-07-12] MEDS: IPRATROPIUM-ALBUTEROL 3 ML NEB INHALATION SCH ×6 (01:30→20:20)
[2023-07-12 05:49] LABS: Glucose,Whole Blood 95 mg/dL (70-110)
[2023-07-12 06:05] LABS: ABG Base Excess 0.8 mmol/L; ABG HCO3 24 mmol/L (21-25); ABG Oxygen Saturation 98.3 % (94-97); ABG PCO2 33 mmHg (35-45); ABG PH 7.48 (7.35-7.45); ABG PO2 104 mmHg (83-108); ABG TCO2 25 mmol/L (19-24); Allen Test Performed? Yes
[2023-07-12 06:18] LABS: Anisocytosis Slight; HCT 24.5 % (39.0-53.0); HGB 7.8 gm/dL (13.0-17.5); Hypochromasia Moderate; MCH 27.4 pg (25.0-35.0); MCV 85.7 fL (80.0-100.0); Mean Platelet Volume 8.2; Platelet Count 181 k/uL (150-450); Poikilocytosis Slight; RBC 2.86 m/uL (4.30-5.90); RDW 17.7 % (11.5-15.5); WBC 8.2 k/uL (3.8-10.6)
[2023-07-12 06:39] LABS: African American GFR (CKD) >90 (>60 ml/min/1.73 sqM); Anion Gap 8 mmol/L; Blood Urea Nitrogen 14 mg/dL (9-20); Calcium 6.9 mg/dL (8.4-10.2); Carbon Dioxide 21 mmol/L (22-30); Chloride 111 mmol/L (98-107); Glucose 74 mg/dL (74-99); Magnesium 1.7 mg/dL (1.6-2.3); Non-African American GFR(CKD) >90 (>60 ml/min/1.73 sqM); Potassium 3.5 mmol/L (3.5-5.1); Sodium 140 mmol/L (137-145)
[2023-07-12] MEDS: LACTOBACILLUS ACIDOPHILUS/PECT 1 EACH CAPSULE PO SCH ×2 (07:04→20:36)
[2023-07-12] MEDS: POTASSIUM CHLORIDE 20 MEQ in WATER FOR INJECTION 1 100ML.BAG IVPB SCH ×2 (07:04→09:10)
[2023-07-12] MEDS: INSULIN DETEMIR (LEVEMIR) 100 UNIT/ML SYR SQ SCH (07:53)
[2023-07-12] MEDS: NYSTATIN 100,000 UNIT/GM POWD 15 GM TOPICAL SCH ×3 (09:00→23:41)
[2023-07-12] MEDS: CHLORHEXIDINE GLUCONATE 15 ML CUP MUCOUS MEM SCH ×2 (09:00→20:36)
[2023-07-12] MEDS: PANTOPRAZOLE 40 MG/10 ML VIAL IV SCH (09:09)
[2023-07-12] MEDS: ENOXAPARIN 40 MG/0.4 ML SYRINGE SQ SCH (09:10)
[2023-07-12] MEDS: FUROSEMIDE 10 MG/ML 4 ML VIAL IV SCH (09:10)
[2023-07-12] MEDS: NICOTINE 14MG/24HR PATCH TRANSDERM SCH (09:11)
[2023-07-12] MEDS: PIPERACILLIN-TAZOBACTAM 3.375 GM in SODIUM CHLORIDE 0.9% 100 ML IVPB SCH ×2 (09:11→15:51)
[2023-07-12] MEDS: ATORVASTATIN 20 MG TAB PO SCH (09:11)
[2023-07-12] MEDS: THIAMINE 100 MG TAB PO SCH (09:11)
--- NOTE | 2023-07-12 09:17 | XR ---
EXAMINATION TYPE: XR chest 1V portable DATE OF EXAM: 07/12/2023 Comparison: 07/11/2023 Clinical History: 63-year-old male mechanical ventilation, ICU follow-up Findings: ET and NG tubes are satisfactory. Ongoing small left pleural effusion. Hazy density obscuring the rig ht hemidiaphragm. Retrocardiac opacity on the left similar to slightly increased. Impression: 1. Slight worsening small left pleural effusion and increasing retrocardiac left basilar opacity. 2. Ongoing small right pleural effusion.
--- NOTE | 2023-07-12 10:22 | P.PN ---
Progress Note - Text Progress Note Date: 07/12/23 (Surgery)
[2023-07-12] MEDS ORDERED: MAGNESIUM SULFATE-D5W PMX 1 GM in DEXTROSE/WATER 1 100ML.BAG IVPB ONE (11:10)
[2023-07-12 11:21] LABS: Glucose,Whole Blood 124 mg/dL (70-110)
--- NOTE | 2023-07-12 12:18 | P.PN ---
Subjective Progress Note Date: 07/12/23 Pt remains intubated, sedated. General: intubated, sedated HEENT: normocephalic, atraumatic, no tracheal deviation Respiratory: symmetric chest rise, no cyanosis, ventilator dependent CVS: perfusing all extremities, no distal gangrene, present pitting edema GI: soft, ND : no SPT, no CVAT, abbott is present Neuro: sedated Hospital course: Patient is a 63-year-old male with permanent atrial fibrillation, COPD, hypertension, congestive heart failure per patient, and chronic lower extremity weakness who presented to the ER due to increased congestion. On arrival to the ER his vital signs were remarkable for a blood pressure of 83/37 and a pulse of 113. Laboratory analysis included CBC, coags, CMP, CK, and lactic acid which were remarkable for white blood cell count 24.1, hemoglobin 11.6, sodium 132, and lactic acid of 4.2. On arrival to the emergency department the patient was covered in feces and was desheveled. He was started on vancomycin, and Rocephin. He was seen by pulmonary and Eraxis was added. He received 2 L of IV fluids but remained hypotensive. I contacted general surgery who came in to see the patient and took him to the OR. He underwent an urgent wide excisional d ebrided of necrotic sacral decubitus ulcer. He was subsequently taken to the ICU he was intubated. He did require multiple vasopressors to be added including levo and days ago. He then developed atrial fibrillation with rapid ventricular response and amiodarone was initiated. Cardiology consult was placed. Echocardiogram showed ejection fraction 30-35% but may be underestimated due to tachycardia. CT abdomen and pelvis did confirm a large ulcer with exposed bone. Assessment/Plan: Infected lumbar and sacral decubitus ulcer with severe sepsis Functional quadralplegia with b/l le flexion contracture B/l Heel stage II pressure ulcures Severe Protein calorie malnutrition Class II obesity with BMI 37.5 Possibel Gram + bacilli bacteremia - Eraxis 100 mg daily daily #5 - Zosyn 3.375 g IV piggyback every 8 hours day #5 - Vancomycin IV piggyback daily #4, monitor creatinine and a trough for signs of toxicity. - Wean vasopressin as able - await final blood cultures -Pulmonary note reviewed: Patient holiday to assess mental status. -Await further infectious disease recommendations - Surgery recs: will possibly need repeat debridement and diverting colostomy once more stable. Acute blood loss anemia, anticipated outcome of surgery -Anticipate patient have continued blood loss giving need for surgical debridement over such a large area. -No transfusion required on 07/11 -Repeat CBC in a.m. Acute exacerbation of systolic CHF with EF 30-35% (me be under estimated due to tachycardia) Permanent atrial fibrillation with rapid ventricular response HTN -Cardiology following -Amiodarone infusion has been discontinued -Holding off anticoagulation until hemoglobin stabilizes and cleared by surgery Hyperglycemia -Add 10 units of Levemir, continue sliding scale insulin Imaging: Chest x-ray personally interpreted on 07/10, OG tube, ET tube are well placed, low expiratory volume, Data Review 07/10: CBC: White blood cell count 12.4, hemoglobin 8.1 Basic metabolic panel: Sodium 131, CO2 20 Liver function tests: Albumin 1.7 Vancomycin trough: 20.4 Capillary blood glucose: 202-226 Blood cultures are positive for gram-positive bacilli, tissue cultures positive for gram-negative bacilli DVT prophylaxis: Lovenox Poor overall prognosis Anticipated discharge date: Pending Clinical Course Anticipated discharge place: Pending Clinical Course This dictation was prepared using [employer] voice recognition software. Though every attempt is made to correct errors during dictation some may still exist. Objective - Vital Signs Vital signs: Vital Signs Temp 96.2 F L 07/12/23 08:00 Pulse 98 07/12/23 11:01 Resp 33 H 07/12/23 11:00 BP 120/93 07/12/23 11:00 Pulse Ox 100 07/12/23 11:00 FiO2 45 07/12/23 10:49 Intake & Output 07/11/23 07/12/23 07/12/23 18:59 06:59 18:59 Intake Total 2336 1700 1307.010 Output Total 0 1060 800 Balance 286 640 507.010 Weight 155.2 kg 146 kg Intake: IV 1700 1400 900 Anidulafungin 100 mg In 100 Sodium Chloride 0.9% 100 ml @ 84 mls/hr IVPB HS [facility] Rx#:[id number] Piperacillin-Tazobactam 3 100 100 100 .375 gm In Sodium Chloride 0.9% 100 ml @ 25 mls/hr IVPB Q8HR [facility] Rx# :[id number] Potassium Chloride 20 meq 300 100 200 In Water For Injection 1 100ml.bag @ 50 mls/hr IVPB Q2H [facility] Rx#: [id number] Sodium Chloride 0.9% 1, 1300 1100 600 000 ml @ 100 mls/hr IV . Q10H [facility] Rx#:[id number] Intake, IV Titration 300 300 117.010 Amount propofoL 1,000 mg In 300 300 117.010 Empty Bag 1 bag @ 15 MCG/ KG/MIN 12.247 mls/hr IV . Q8H10M [facility] Rx#:[id number] Tube Feeding 276 230 Other 60 60 Output: Urine 2050 1060 800 Other: Voiding Method Indwelling Catheter Indwelling Catheter Indwelling Catheter ABP, PAP, CO, CI - Last Documented Arterial Blood Pressure 120/67 - Labs CBC & Chem 7: 07/12/23 05:30 07/12/23 05:30 Labs: Abnormal Lab Results - Last 24 Hours (Table) 07/11/23 07/12/23 07/12/23 Range/Units 15:35 05:30 05:30 RBC 2.86 L (4.30-5.90) m/uL Hgb 7.8 L (13.0-17.5) gm/dL Hct 24.5 L (39.0-53.0) % RDW 17.7 H (11.5-15.5) % ABG pH (7.35-7.45) ABG pCO2 (35-45) mmHg ABG Total CO2 (19-24) mmol/L ABG O2 Saturation (94-97) % Potassium 3.4 L (3.5-5.1) mmol/L Chloride 111 H (98-107) mmol/L Carbon Dioxide 21 L (22-30) mmol/L Creatinine 0.60 L (0.66-1.25) mg/dL POC Glucose (mg/dL) (70-110) mg/dL Calcium 6.9 L (8.4-10.2) mg/dL 07/12/23 07/12/23 Range/Units 06:01 11:19 RBC (4.30-5.90) m/uL Hgb (13.0-17.5) gm/dL Hct (39.0-53.0) % RDW (11.5-15.5) % ABG pH 7.48 H (7.35-7.45) ABG pCO2 33 L (35-45) mmHg ABG Total CO2 25 H (19-24) mmol/L ABG O2 Saturation 98.3 H (94-97) % Potassium (3.5-5.1) mmol/L Chloride (98-107) mmol/L Carbon Dioxide (22-30) mmol/L Creatinine (0.66-1.25) mg/dL POC Glucose (mg/dL) 124 H (70-110) mg/dL Calcium (8.4-10.2) mg/dL Microbiology - Last 24 Hours (Table) 07/09/23 10:50 Blood Culture - Preliminary Blood 07/07/23 09:04 Gram Stain - Preliminary Back Tissue Culture - Preliminary Myroides species Escherichia coli 07/07/23 09:04 Anaerobic Culture - Final Back 07/10/23 06:35 Blood Culture - Preliminary Blood 07/08/23 00:30 Gram Stain - Final Sputum Sputum Culture - Final Haemophilus influenzae Beta Hemolytic Strep Group C
--- NOTE | 2023-07-12 12:47 | P.PN ---
Subjective Progress Note Date: 07/12/23 Principal diagnosis: Septic shock and acute hypoxic respiratory failure I am seeing this patient in consultation today 07/08/2023 in the intensive care unit after presenting to the emergency room yesterday afternoon. He was found to have a large sacral decubitus ulcer that was felt to be infected. He underwent excisional debridement of the necrotic sacral decubitus ulcer late last night. He was then transferred to the intensive care unit and remains on the ventilator. Patient is a 63-year-old white male with past medical history significant for atrial fibrillation, hypertension, hyperlipidemia, COPD, chronic ongoing tobacco dependence, alcoholism, among other things. As stated, the patient is currently intubated on the mechanical ventilator, and unable to provide any history. Patient's mother is at the bedside, reports that over the last month or so the patient has been fairly dependent in his chair. He's been very weak and unable to ambulate. She has been bringing him food. He likely hasn't been taking his medications for the last 2 weeks because he ran out. He's had ongoing issues with diarrhea and cannot get to the bathroom. On arrival to the emergency room, he was found to have a very large sacral decubitus pressure ulcer. It was felt to be infected with areas of necrosis and purulent drainage. A CT of the abdomen and pelvis demonstrated a large sacral decubitus ulcer with exposed sacral and coccyx bone. No organizing fluid collections to suggest abscess. There was gas tracking along the myofascial planes in the buttocks/pelvic region felt to be likely due to a large defect and skin/subcutaneous tissue. No definitive osteomyelitis noted. There is subcutaneous edema throughout the soft tissues around the pelvis. There was bilateral pleural effusions, cardiomegaly, and a nonobstructive left renal calculus. Patient was taken to the OR for debridement late last night. He is currently in the intensive care unit and intubated to the mechanical ventilator. Ventilator settings are assist control, respiratory rate 24, tidal volume 500, FiO2 50%, PEEP of 5. These were adjusted based on the most recent ABG including a PaO2 of 384, pCO2 49, pH is 7.27. Post-op chest x-ray demonstrates the endotracheal tube above the omega. There is a orogastric tube coursing below the diaphragm. Chest x-ray shows cardiomegaly, pulmonary vasculature congestion, and bilateral pleural effusions with associated atelectasis. He is sedated on propofol at 30 mcg/kg/m. Fairly synchronous with mechanical ventilator. Heart rhythm is atrial fibrillation with rapid ventricular rate ranging from 140-180 bpm. Blood pressure was hypotensive and he was bolused 3 L normal saline. Then started on vasopressors with norepinephrine infusing at 0.1 mcg/kg/m. Blood pressure remains labile and fluctuates with extreme tachycardia. Amiodarone was started per protocol and he was bolused 150 mg and is currently infusing at 1 mg/m. A femoral central line catheter was established in OR. Patient appears septic, and is empirically covered with a combination of Zosyn and vancomycin. Pancultures are pending. C. diff EIA is pending. Most recent CBC shows a WBC count of 31.5, hemoglobin 9.1, hematocrit 28.8, platelets 351. CMV has a sodium 132, potassium 3.6, chloride 106, serum bicarb 19, BUN 19, creatinine 0.73, glucose 157. Magnesium is 1.4 and is being replaced. Lactic acid level was elevated at 4.2 and is down to 3.1. Prognosis is guarded and his condition is currently critical. He is being monitored in the intensive care unit. Patient was reevaluated today on 07/09/2023, remains in the ICU, intubated and mechanically ventilated. Patient is on assist control rate of 24 tidal volume 500 FiO2 40% and PEEP of 5 ABG showed a pO2 of 170 pCO2 32 pH of 7.40 hence his FiO2 was cut down to 35%. Patient remains in atrial fibrillation, he is on amiodarone at 1 mcg/m, vasopressin at 0.04 units per minute, norepinephrine at 0.01 mcg/kg/m propofol at 40 mcg/kg/m patient remains on Zosyn and vancomycin and an axis. His IV fluid is 0.9 normal saline at 100 mL/h. He did receive Lasix yesterday and he had a significant urine output, hemoglobin today however is down to 7.1, and that is most likely from his blood loss from his debridement of the sacral decubitus ulcer history definite improvement today compared to yesterday, nonetheless the patient remains critically ill, remains septic and requiring pressors. However his heart rate is better controlled blood pressure is better controlled and he is on (compared to yesterday. The plan is to discontinue norepinephrine and continue vasopressin for now. And we will continue fluids at 100 mL/h nonetheless the patient will receive another dose of Lasix today as he received significant fluid boluses yesterday for low blood pressure. And the patient is known to have history of LV dysfunction. WBC count today is 13.2 hemoglobin is 7.1, potassium 3.2 BUN is normal creatinine is normal chest x-ray showed bilateral small pleural effusions, no pneumonia, Patient was reevaluated today on 07/10/23, remains in the ICU intubated and mechanically ventilated. Patient is on assist control rate of 24 tidal volume 500 FiO2 35% and PEEP of 5 remains on vasopressin at 0.03 units per minute, he is on propofol at 40 mcg/kg/m. ABG showed a pO2 of 109 pCO2 30 pH of 7.49 IV fluid is at 100 mL per hour. Overall the patient is showing improvement, however the surgeon clearly stated that he is recommending comfort care measures considering the extensiveness of the wound that this patient has and he doesn't believe that the patient will make it with Extensive one in the buttocks area. No plans for any further debridement according to the surgeon, and today I went ahead and had a discussion with the patient's mother, and gave the patient's mother the option of comfort care measures or back option of continuing full support. Apparently the mother is saying that she is very well aware of his poor overall clinical status and she is basically almost ready to make a decision to go to comfort care because she does not want him to suffer anymore. Apparently his quality of life has been very miserable and extremely poor. WBC count today is 12.4 hemoglobin 8.1 basic metabolic profile is normal and renal profile is normal chest x-ray this morning showed endotracheal tube to be at 4.7 cm above the omega and the patient has low lung volumes, stable support tubes noted. Patient was evaluated today on 07/11/23, remains in the ICU, intubated and mechanically ventilated, patient is on assist control rate of 24 tidal volume 500 FiO2 35% and PEEP of 5 ABG showed a pO2 of 87 pCO2 34 pH of 7.46. Hence no changes were made in his ventilator settings. Patient is hemodynamically stable, not requiring any pressors, he is on propofol at 35 mcg/kg/m he is also receiving vital HP and he is on an axis and Zosyn. Yesterday I had a long discussion with his mother and explained to the mother the recommendations of the surgeons on the case feeling that the patient has very poor prognosis, and his mortality is considered extremely high, the surgeons are recommending comfort care measures no plans to go back and to any further debridement. Today the patient will have at least a sedation interruption trial, and at least assessment of mental status. Mother is still undecided about the issue of comfort care, hopefully she will make a decision today. WBC count today is 8.8 hemoglobin is 7.6. Basic metabolic profile is normal potassium is 3.0, being addressed as per protocol chest x-ray continues to show bilateral pleural effusions right more so than left patient will receive a dose of Lasix today. Patient was reevaluated today on 04/11/2024, patient is still intubated, mechanically ventilated, remains on assist control rate of 24 tidal volume 500 FiO2 45% and PEEP of 5 ABG showed a pO2 of 104 pCO2 33 pH of 7.48. Patient remains on propofol at 35 mg/kg/m, he is now off norepinephrine, remains on vital HP at 46 mL/h he is also on normal saline at 100 mL per hour. Antibiotics bro patient remains on Zosyn is also on an axis, and I recommended yesterday Lasix maintenance 40 mg IV push daily as he seems to develop recurrent episodes of pleural effusions and congestive heart failure. At any rate mother is still undecided about his CODE STATUS and about possibly comfort care, today I was able to awaken the patient, I held his propofol, I tried to ask the patient about what his wishes are as far as CODE STATUS and potentially terminal weaning, it is difficult to determine whether the patient really wants. Patient remains quite lethargic, sleepy, in spite of being off sedation and able to follow instructions. I am not certain whether he is comprehending what I'm asking him to decide upon. Hence my plan is since the mother is undecided is to proceed with possibly weaning and extubating the patient, and when he is off sedation completely and if extubated will be able to make a better and bro that decision based on the patient's own wishes. Unless the mother is able to decide for him, and obviously so far she is not able to do so. WBC count today is 8.2 hemoglobin 7.8 basic metabolic profile is normal chest x-ray continues to show small left pleural effusion and retrocardiac left basilar atelectasis. Objective - Vital Signs Vital signs: Vital Signs Temp 97.4 F L 07/12/23 12:00 Pulse 102 H 07/12/23 12:00 Resp 27 H 07/12/23 12:00 BP 118/85 07/12/23 12:00 Pulse Ox 99 07/12/23 12:00 FiO2 45 07/12/23 12:00 Intake & Output 07/11/23 07/12/23 07/12/23 18:59 06:59 18:59 Intake Total 2336 1700 1307.010 Output Total 2050 1060 800 Balance 286 640 507.010 Weight 155.2 kg 146 kg Intake: IV 1700 1400 900 Anidulafungin 100 mg In 100 Sodium Chloride 0.9% 100 ml @ 84 mls/hr IVPB HS [facility] Rx#:[id number] Piperacillin-Tazobactam 3 100 100 100 .375 gm In Sodium Chloride 0.9% 100 ml @ 25 mls/hr IVPB Q8HR [facility] Rx# :[id number] Potassium Chloride 20 meq 300 100 200 In Water For Injection 1 100ml.bag @ 50 mls/hr IVPB Q2H [facility] Rx#: [id number] Sodium Chloride 0.9% 1, 1300 1100 600 000 ml @ 100 mls/hr IV . Q10H [facility] Rx#:[id number] Intake, IV Titration 300 300 117.010 Amount propofoL 1,000 mg In 300 300 117.010 Empty Bag 1 bag @ 15 MCG/ KG/MIN 12.247 mls/hr IV . Q8H10M [facility] Rx#:[id number] Tube Feeding 276 230 Other 60 60 Output: Urine 2049 1060 800 Other: Voiding Method Indwelling Catheter Indwelling Catheter Indwelling Catheter ABP, PAP, CO, CI - Last Documented Arterial Blood Pressure 120/65 - Exam GENERAL EXAM: 63-year-old white male obese, intubated and mechanically ventilated. HEAD: Normocephalic and atraumatic EYES: Normal reaction of pupils, equal size. NOSE: Clear with pink turbinates. THROAT: No erythema or exudates endotracheal tube and orogastric tube are intact.. NECK: No masses, no JVD. Short obese neck is noted. CHEST: No chest wall deformity. LUNGS: Diminished breath sounds at the bases no crackles or rhonchi or wheezes CVS: S1 and S2 normal with no audible murmur, irregular rhythm. ABDOMEN: Obese, No hepatosplenomegaly, active bowel sounds, no guarding or rigidity. SKIN: Fungal dermatitis noted underneath neck folds, breasts, and abdominal folds. Sacral decubitus debridement site is dressed with postoperative dressings. CENTRAL NERVOUS SYSTEM: Arousable, follows instruction, difficult to determine whether the patient is comprehending my questions to him Psychiatric: Unable to assess EXTREMITIES: Chronic venous stasis changes with mild to moderate nonpitting edema. No clubbing, or cyanosis. Peripheral pulses are intact. - Labs CBC & Chem 7: 07/12/23 05:30 07/12/23 05:30 Labs: Abnormal Lab Results - Last 24 Hours (Table) 07/11/23 07/12/23 07/12/23 Range/Units 15:35 05:30 05:30 RBC 2.86 L (4.30-5.90) m/uL Hgb 7.8 L (13.0-17.5) gm/dL Hct 24.5 L (39.0-53.0) % RDW 17.7 H (11.5-15.5) % ABG pH (7.35-7.45) ABG pCO2 (35-45) mmHg ABG Total CO2 (19-24) mmol/L ABG O2 Saturation (94-97) % Potassium 3.4 L (3.5-5.1) mmol/L Chloride 111 H (98-107) mmol/L Carbon Dioxide 21 L (22-30) mmol/L Creatinine 0.60 L (0.66-1.25) mg/dL POC Glucose (mg/dL) (70-110) mg/dL Calcium 6.9 L (8.4-10.2) mg/dL 07/12/23 07/12/23 Range/Units 06:01 11:19 RBC (4.30-5.90) m/uL Hgb (13.0-17.5) gm/dL Hct (39.0-53.0) % RDW (11.5-15.5) % ABG pH 7.48 H (7.35-7.45) ABG pCO2 33 L (35-45) mmHg ABG Total CO2 25 H (19-24) mmol/L ABG O2 Saturation 98.3 H (94-97) % Potassium (3.5-5.1) mmol/L Chloride (98-107) mmol/L Carbon Dioxide (22-30) mmol/L Creatinine (0.66-1.25) mg/dL POC Glucose (mg/dL) 124 H (70-110) mg/dL Calcium (8.4-10.2) mg/dL Microbiology - Last 24 Hours (Table) 07/09/23 10:50 Blood Culture - Preliminary Blood 07/07/23 09:04 Gram Stain - Preliminary Back Tissue Culture - Preliminary Myroides species Escherichia coli 07/07/23 09:04 Anaerobic Culture - Final Back 07/10/23 06:35 Blood Culture - Preliminary Blood 07/08/23 00:30 Gram Stain - Final Sputum Sputum Culture - Final Haemophilus influenzae Beta Hemolytic Strep Group C Assessment and Plan Assessment: Impression: Septic shock, primary source is infected large sacral decubitus ulcer, this is a relatively large and extensive wound involving the sacral decubitus area. Infected large sacral decubitus ulcer with secondary sepsis status postoperative day #3 following large excisional debridement. Acute hypoxemic and hypercapnic respiratory failure, requiring intubation and mechanical ventilation, multifactorial mostly related to his septic shock and his bilateral pleural effusion/congestive heart failure/systolic in nature Paroxysmal Atrial fibrillation with rapid ventricular rate, currently on amiodarone infusion per protocol. Acute blood loss anemia, expected outcome of surgery Diarrhea, check C. diff Possible UTI fungal dermatitis involving his axillary region and groin bilaterally Chronic obstructive pulmonary disease, stable Chronic ongoing tobacco dependence History of alcoholism, last drink reportedly 6 weeks ago History of hypertension History of hyperlipidemia Obesity, with a BMI of 37.5 kg/m Recommendation: Daily assessment for potential weaning, and was the patient is extubated I would be able to discuss CODE STATUS directly with the patient and discuss his own wishes especially with the mother unable to make decisions for him at this point. Continue ventilatory support Patient is now off norepinephrine. Continue nutritional support/enteral feeding Continue antibiotics /Zosyn and Eraxis Continue GI and DVT prophylaxis Continue Lasix on a daily basis Continue to monitor daily labs Mother has not decided about CODE STATUS and comfort care measures Patient remains critically ill, We'll continue to follow. Critical care time is over 30 minutes Time with Patient: Greater than 30
[2023-07-12] MEDS: NOREPINEPHRINE 4 MG in SODIUM CHLORIDE 0.9% 250 ML IV SCH ×3 (13:17→23:41)
[2023-07-12] MEDS: VASOPRESSIN 60 UNIT in SODIUM CHLORIDE 0.9% 150 ML IV SCH (13:18)
[2023-07-12] MEDS: SODIUM CHLORIDE 0.9% 1,000 ML IV SCH ×3 (16:49→23:40)
[2023-07-12 17:58] VITALS: RESP 24
[2023-07-12 17:59] LABS: Glucose,Whole Blood 116 mg/dL (70-110)
[2023-07-12 19:24] VITALS: BP 108/73
[2023-07-12] MEDS: ANIDULAFUNGIN 100 MG in SODIUM CHLORIDE 0.9% 100 ML IVPB SCH (20:36)
[2023-07-12 23:46] LABS: Glucose,Whole Blood 123 mg/dL (70-110)
[2023-07-13] MEDS: IPRATROPIUM-ALBUTEROL 3 ML NEB INHALATION SCH ×4 (00:21→11:36)
[2023-07-13] MEDS: fentaNYL (PF) 50 MCG/ML 2 ML AMP IVP PRN (01:27)
[2023-07-13] MEDS: PIPERACILLIN-TAZOBACTAM 3.375 GM in SODIUM CHLORIDE 0.9% 100 ML IVPB SCH ×2 (01:27→08:34)
[2023-07-13 05:02] LABS: Glucose,Whole Blood 116 mg/dL (70-110)
[2023-07-13] MEDS: VASOPRESSIN 60 UNIT in SODIUM CHLORIDE 0.9% 150 ML IV SCH (05:04)
[2023-07-13] MEDS: INSULIN ASPART (NovoLOG) 100 UNIT/ML VIAL SQ SCH ×2 (05:05→11:36)
[2023-07-13] MEDS: INSULIN DETEMIR (LEVEMIR) 100 UNIT/ML SYR SQ SCH (05:05)
[2023-07-13 05:07] LABS: Anisocytosis Slight; Basophils # (A) 0.1 k/uL (0-0.2); Basophils % (A) 1 %; Eosinophils # (A) 0.4 k/uL (0-0.7); Eosinophils % (A) 5 %; HCT 24.6 % (39.0-53.0); HGB 7.8 gm/dL (13.0-17.5); Hypochromasia Moderate; Lymphocytes # (A) 1.2 k/uL (1.0-4.8); Lymphocytes % (A) 13 %; MCH 27.6 pg (25.0-35.0); MCHC 31.9 g/dL (31.0-37.0); MCV 86.8 fL (80.0-100.0); Mean Platelet Volume 8.5; Monocytes # (A) 0.2 k/uL (0-1.0); Monocytes % (A) 3 %; Neutrophils % (A) 78 %; Platelet Count 228 k/uL (150-450); Poikilocytosis Slight; RBC 2.83 m/uL (4.30-5.90); RDW 18.1 % (11.5-15.5)
[2023-07-13 05:10] LABS: Ionized Calcium 4.3 mg/dL (4.5-5.3)
[2023-07-13 05:10] LABS: ABG Base Excess 1.1 mmol/L; ABG HCO3 25 mmol/L (21-25); ABG Oxygen Saturation 97.6 % (94-97); ABG PCO2 33 mmHg (35-45); ABG PH 7.48 (7.35-7.45); ABG PO2 88 mmHg (83-108); ABG TCO2 26 mmol/L (19-24); Allen Test Performed? Yes
[2023-07-13 05:31] LABS: African American GFR (CKD) >90 (>60 ml/min/1.73 sqM); Anion Gap 8 mmol/L; Blood Urea Nitrogen 13 mg/dL (9-20); Calcium 6.9 mg/dL (8.4-10.2); Carbon Dioxide 22 mmol/L (22-30); Chloride 112 mmol/L (98-107); Glucose 106 mg/dL (74-99); Magnesium 1.8 mg/dL (1.6-2.3); Non-African American GFR(CKD) >90 (>60 ml/min/1.73 sqM); Potassium 3.1 mmol/L (3.5-5.1); Sodium 142 mmol/L (137-145)
[2023-07-13] MEDS ORDERED: MAGNESIUM SULFATE-D5W PMX 1 GM in DEXTROSE/WATER 1 100ML.BAG IVPB ONE (05:42)
[2023-07-13] MEDS: POTASSIUM CHLORIDE 20 MEQ in WATER FOR INJECTION 1 100ML.BAG IVPB SCH ×2 (06:11→08:34)
[2023-07-13] MEDS: LACTOBACILLUS ACIDOPHILUS/PECT 1 EACH CAPSULE PO SCH (06:11)
[2023-07-13] MEDS: NOREPINEPHRINE 4 MG in SODIUM CHLORIDE 0.9% 250 ML IV SCH (07:36)
[2023-07-13 08:17] VITALS: TEMP 97.6
[2023-07-13] MEDS: FUROSEMIDE 10 MG/ML 4 ML VIAL IV SCH (08:34)
[2023-07-13] MEDS: NICOTINE 14MG/24HR PATCH TRANSDERM SCH (08:34)
[2023-07-13] MEDS: ENOXAPARIN 40 MG/0.4 ML SYRINGE SQ SCH (08:34)
[2023-07-13] MEDS: PANTOPRAZOLE 40 MG/10 ML VIAL IV SCH (08:34)
[2023-07-13] MEDS: CHLORHEXIDINE GLUCONATE 15 ML CUP MUCOUS MEM SCH (08:34)
[2023-07-13] MEDS: ATORVASTATIN 20 MG TAB PO SCH (08:35)
[2023-07-13] MEDS: THIAMINE 100 MG TAB PO SCH (08:35)
[2023-07-13] MEDS: NYSTATIN 100,000 UNIT/GM POWD 15 GM TOPICAL SCH (08:54)
--- NOTE | 2023-07-13 09:30 | XR ---
EXAMINATION TYPE: XR chest 1V portable DATE OF EXAM: 07/13/2023 Comparison: 07/12/2023 Clinical History: 63-year-old male mechanical ventilator, ICU follow-up Findings: ET tube tip at the level of medial clavicular heads. NG tube courses below the diaphragm. Now, near c omplete white out of the left hemithorax. Small portions of left upper lobe remaining aerated. Hazy d ensity right base suggests partially layering pleural effusion, similar to prior. Impression: Worsening aeration left hemithorax now with near complete whiteout. Similar partially layering right pleural effusion with adjacent atelectasis and/or consolidation.
--- NOTE | 2023-07-13 10:50 | P.PN ---
Objective - Vital Signs Vital signs: Vital Signs Temp 97.6 F 07/13/23 08:00 Pulse 76 07/13/23 09:00 Resp 24 07/13/23 09:00 BP 108/73 07/12/23 18:00 Pulse Ox 100 07/13/23 09:00 FiO2 40 07/13/23 08:00 Intake & Output 07/12/23 07/13/23 07/13/23 18:59 06:59 18:59 Intake Total 2471.186 2260.760 608 Output Total 1804 445 200 Balance 794.522 8053.760 408 Intake: IV 1700 1550 440 Anidulafungin 100 mg In 100 Sodium Chloride 0.9% 100 ml @ 84 mls/hr IVPB HS [facility] Rx#:[id number] Magnesium Sulfate-D5w Pmx 100 1 gm In Dextrose/Water 1 100ml.bag @ 100 mls/hr IVPB [facility] Rx#: [id number] Magnesium Sulfate-D5w Pmx 100 1 gm In Dextrose/Water 1 100ml.bag @ 100 mls/hr IVPB [facility] Rx#: [id number] Piperacillin-Tazobactam 3 200 100 .375 gm In Sodium Chloride 0.9% 100 ml @ 25 mls/hr IVPB Q8HR [facility] Rx# :[id number] Potassium Chloride 20 meq 200 In Water For Injection 1 100ml.bag @ 50 mls/hr IVPB Q2H [facility] Rx#: [id number] Potassium Chloride 20 meq 50 150 In Water For Injection 1 100ml.bag @ 50 mls/hr IVPB Q2H [facility] Rx#: [id number] Sodium Chloride 0.9% 1, 1200 1200 290 000 ml @ 100 mls/hr IV . Q10H [facility] Rx#:[id number] Intake, IV Titration 175.186 114.760 Amount propofoL 1,000 mg In 175.186 114.760 Empty Bag 1 bag @ 15 MCG/ KG/MIN 12.247 mls/hr IV . Q8H10M [facility] Rx#:[id number] Tube Feeding 506 506 138 Other 90 90 30 Output: Urine 1804 445 200 Other: Voiding Method Indwelling Catheter Indwelling Catheter ABP, PAP, CO, CI - Last Documented Arterial Blood Pressure 115/57 - Labs CBC & Chem 7: 07/13/23 05:00 07/13/23 05:00 Labs: Abnormal Lab Results - Last 24 Hours (Table) 07/12/23 07/12/23 07/12/23 Range/Units 11:19 17:57 23:43 RBC (4.30-5.90) m/uL Hgb (13.0-17.5) gm/dL Hct (39.0-53.0) % RDW (11.5-15.5) % ABG pH (7.35-7.45) ABG pCO2 (35-45) mmHg ABG Total CO2 (19-24) mmol/L ABG O2 Saturation (94-97) % Potassium (3.5-5.1) mmol/L Chloride (98-107) mmol/L Creatinine (0.66-1.25) mg/dL Glucose (74-99) mg/dL POC Glucose (mg/dL) 124 H 116 H 123 H (70-110) mg/dL Calcium (8.4-10.2) mg/dL Ionized Calcium Ramila (4.5-5.3) mg/dL 07/13/23 07/13/23 07/13/23 Range/Units 05:00 05:00 05:02 RBC 2.83 L (4.30-5.90) m/uL Hgb 7.8 L (13.0-17.5) gm/dL Hct 24.6 L (39.0-53.0) % RDW 18.1 H (11.5-15.5) % ABG pH (7.35-7.45) ABG pCO2 (35-45) mmHg ABG Total CO2 (19-24) mmol/L ABG O2 Saturation (94-97) % Potassium 3.1 L (3.5-5.1) mmol/L Chloride 112 H (98-107) mmol/L Creatinine 0.55 L (0.66-1.25) mg/dL Glucose 106 H (74-99) mg/dL POC Glucose (mg/dL) 116 H (70-110) mg/dL Calcium 6.9 L (8.4-10.2) mg/dL Ionized Calcium Ramila 4.3 L (4.5-5.3) mg/dL 07/13/23 Range/Units 05:08 RBC (4.30-5.90) m/uL Hgb (13.0-17.5) gm/dL Hct (39.0-53.0) % RDW (11.5-15.5) % ABG pH 7.48 H (7.35-7.45) ABG pCO2 33 L (35-45) mmHg ABG Total CO2 26 H (19-24) mmol/L ABG O2 Saturation 97.6 H (94-97) % Potassium (3.5-5.1) mmol/L Chloride (98-107) mmol/L Creatinine (0.66-1.25) mg/dL Glucose (74-99) mg/dL POC Glucose (mg/dL) (70-110) mg/dL Calcium (8.4-10.2) mg/dL Ionized Calcium Ramila (4.5-5.3) mg/dL Microbiology - Last 24 Hours (Table) 07/07/23 09:04 Gram Stain - Final Back Tissue Culture - Final Myroides species Clostridium perfringens Escherichia coli 07/09/23 10:50 Blood Culture - Preliminary Blood 07/10/23 06:35 Blood Culture - Preliminary Blood Assessment and Plan Assessment: The patient really has shown no clinical change. The family discussing comfort care measures. He will continue local wound care.
[2023-07-13] MEDS ORDERED: MORPHINE SULFATE 4 MG/ML SYRINGE IV PRN (11:04)
[2023-07-13] MEDS ORDERED: ATROPINE OPHTH SOLN 1% 5ML BTL SUBLINGUAL PRN (11:04)
[2023-07-13] MEDS ORDERED: LORazepam 2 MG/ML INJ IV PRN (11:04)
[2023-07-13] MEDS ORDERED: SCOPOLAMINE 1 MG/72 HR PATCH TRANSDERM SCH (11:15)
[2023-07-13 11:22] VITALS: PULSE 67
[2023-07-13] MEDS: MORPHINE SULFATE (100 MG/2 ML) 100 MG in SODIUM CHLORIDE 0.9% 100 ML IV SCH ×2 (11:28→14:35)
--- NOTE | 2023-07-13 12:01 | P.PN ---
Subjective Progress Note Date: 07/13/23 Principal diagnosis: Septic shock and acute hypoxic respiratory failure I am seeing this patient in consultation today 07/08/2023 in the intensive care unit after presenting to the emergency room yesterday afternoon. He was found to have a large sacral decubitus ulcer that was felt to be infected. He underwent excisional debridement of the necrotic sacral decubitus ulcer late last night. He was then transferred to the intensive care unit and remains on the ventilator. Patient is a 63-year-old white male with past medical history significant for atrial fibrillation, hypertension, hyperlipidemia, COPD, chronic ongoing tobacco dependence, alcoholism, among other things. As stated, the patient is currently intubated on the mechanical ventilator, and unable to provide any history. Patient's mother is at the bedside, reports that over the last month or so the patient has been fairly dependent in his chair. He's been very weak and unable to ambulate. She has been bringing him food. He likely hasn't been taking his medications for the last 2 weeks because he ran out. He's had ongoing issues with diarrhea and cannot get to the bathroom. On arrival to the emergency room, he was found to have a very large sacral decubitus pressure ulcer. It was felt to be infected with areas of necrosis and purulent drainage. A CT of the abdomen and pelvis demonstrated a large sacral decubitus ulcer with exposed sacral and coccyx bone. No organizing fluid collections to suggest abscess. There was gas tracking along the myofascial planes in the buttocks/pelvic region felt to be likely due to a large defect and skin/subcutaneous tissue. No definitive osteomyelitis noted. There is subcutaneous edema throughout the soft tissues around the pelvis. There was bilateral pleural effusions, cardiomegaly, and a nonobstructive left renal calculus. Patient was taken to the OR for debridement late last night. He is currently in the intensive care unit and intubated to the mechanical ventilator. Ventilator settings are assist control, respiratory rate 24, tidal volume 500, FiO2 50%, PEEP of 5. These were adjusted based on the most recent ABG including a PaO2 of 384, pCO2 49, pH is 7.27. Post-op chest x-ray demonstrates the endotracheal tube above the omega. There is a orogastric tube coursing below the diaphragm. Chest x-ray shows cardiomegaly, pulmonary vasculature congestion, and bilateral pleural effusions with associated atelectasis. He is sedated on propofol at 30 mcg/kg/m. Fairly synchronous with mechanical ventilator. Heart rhythm is atrial fibrillation with rapid ventricular rate ranging from 140-180 bpm. Blood pressure was hypotensive and he was bolused 3 L normal saline. Then started on vasopressors with norepinephrine infusing at 0.1 mcg/kg/m. Blood pressure remains labile and fluctuates with extreme tachycardia. Amiodarone was started per protocol and he was bolused 150 mg and is currently infusing at 1 mg/m. A femoral central line catheter was established in OR. Patient appears septic, and is empirically covered with a combination of Zosyn and vancomycin. Pancultures are pending. C. diff EIA is pending. Most recent CBC shows a WBC count of 31.5, hemoglobin 9.1, hematocrit 28.8, platelets 351. CMV has a sodium 132, potassium 3.6, chloride 106, serum bicarb 19, BUN 19, creatinine 0.73, glucose 157. Magnesium is 1.4 and is being replaced. Lactic acid level was elevated at 4.2 and is down to 3.1. Prognosis is guarded and his condition is currently critical. He is being monitored in the intensive care unit. Patient was reevaluated today on 07/09/2023, remains in the ICU, intubated and mechanically ventilated. Patient is on assist control rate of 24 tidal volume 500 FiO2 40% and PEEP of 5 ABG showed a pO2 of 170 pCO2 32 pH of 7.40 hence his FiO2 was cut down to 35%. Patient remains in atrial fibrillation, he is on amiodarone at 1 mcg/m, vasopressin at 0.04 units per minute, norepinephrine at 0.01 mcg/kg/m propofol at 40 mcg/kg/m patient remains on Zosyn and vancomycin and an axis. His IV fluid is 0.9 normal saline at 100 mL/h. He did receive Lasix yesterday and he had a significant urine output, hemoglobin today however is down to 7.1, and that is most likely from his blood loss from his debridement of the sacral decubitus ulcer history definite improvement today compared to yesterday, nonetheless the patient remains critically ill, remains septic and requiring pressors. However his heart rate is better controlled blood pressure is better controlled and he is on (compared to yesterday. The plan is to discontinue norepinephrine and continue vasopressin for now. And we will continue fluids at 100 mL/h nonetheless the patient will receive another dose of Lasix today as he received significant fluid boluses yesterday for low blood pressure. And the patient is known to have history of LV dysfunction. WBC count today is 13.2 hemoglobin is 7.1, potassium 3.2 BUN is normal creatinine is normal chest x-ray showed bilateral small pleural effusions, no pneumonia, Patient was reevaluated today on 07/10/23, remains in the ICU intubated and mechanically ventilated. Patient is on assist control rate of 24 tidal volume 500 FiO2 35% and PEEP of 5 remains on vasopressin at 0.03 units per minute, he is on propofol at 40 mcg/kg/m. ABG showed a pO2 of 109 pCO2 30 pH of 7.49 IV fluid is at 100 mL per hour. Overall the patient is showing improvement, however the surgeon clearly stated that he is recommending comfort care measures considering the extensiveness of the wound that this patient has and he doesn't believe that the patient will make it with Extensive one in the buttocks area. No plans for any further debridement according to the surgeon, and today I went ahead and had a discussion with the patient's mother, and gave the patient's mother the option of comfort care measures or back option of continuing full support. Apparently the mother is saying that she is very well aware of his poor overall clinical status and she is basically almost ready to make a decision to go to comfort care because she does not want him to suffer anymore. Apparently his quality of life has been very miserable and extremely poor. WBC count today is 12.4 hemoglobin 8.1 basic metabolic profile is normal and renal profile is normal chest x-ray this morning showed endotracheal tube to be at 4.7 cm above the omega and the patient has low lung volumes, stable support tubes noted. Patient was evaluated today on 07/11/23, remains in the ICU, intubated and mechanically ventilated, patient is on assist control rate of 24 tidal volume 500 FiO2 35% and PEEP of 5 ABG showed a pO2 of 87 pCO2 34 pH of 7.46. Hence no changes were made in his ventilator settings. Patient is hemodynamically stable, not requiring any pressors, he is on propofol at 35 mcg/kg/m he is also receiving vital HP and he is on an axis and Zosyn. Yesterday I had a long discussion with his mother and explained to the mother the recommendations of the surgeons on the case feeling that the patient has very poor prognosis, and his mortality is considered extremely high, the surgeons are recommending comfort care measures no plans to go back and to any further debridement. Today the patient will have at least a sedation interruption trial, and at least assessment of mental status. Mother is still undecided about the issue of comfort care, hopefully she will make a decision today. WBC count today is 8.8 hemoglobin is 7.6. Basic metabolic profile is normal potassium is 3.0, being addressed as per protocol chest x-ray continues to show bilateral pleural effusions right more so than left patient will receive a dose of Lasix today. Patient was reevaluated today on 04/11/2024, patient is still intubated, mechanically ventilated, remains on assist control rate of 24 tidal volume 500 FiO2 45% and PEEP of 5 ABG showed a pO2 of 104 pCO2 33 pH of 7.48. Patient remains on propofol at 35 mg/kg/m, he is now off norepinephrine, remains on vital HP at 46 mL/h he is also on normal saline at 100 mL per hour. Antibiotics bro patient remains on Zosyn is also on an axis, and I recommended yesterday Lasix maintenance 40 mg IV push daily as he seems to develop recurrent episodes of pleural effusions and congestive heart failure. At any rate mother is still undecided about his CODE STATUS and about possibly comfort care, today I was able to awaken the patient, I held his propofol, I tried to ask the patient about what his wishes are as far as CODE STATUS and potentially terminal weaning, it is difficult to determine whether the patient really wants. Patient remains quite lethargic, sleepy, in spite of being off sedation and able to follow instructions. I am not certain whether he is comprehending what I'm asking him to decide upon. Hence my plan is since the mother is undecided is to proceed with possibly weaning and extubating the patient, and when he is off sedation completely and if extubated will be able to make a better and bro that decision based on the patient's own wishes. Unless the mother is able to decide for him, and obviously so far she is not able to do so. WBC count today is 8.2 hemoglobin 7.8 basic metabolic profile is normal chest x-ray continues to show small left pleural effusion and retrocardiac left basilar atelectasis. Patient was reevaluated today on 04/12/24, ICU intubated and mechanically ventilated, patient is on assist control rate of 24 tidal volume 500 FiO2 40% PEEP of 5 ABG showed a pO2 of 88 pCO2 33 pH of 7.48. Patient remains on propofol at 20 mg/kg/m IV fluid at 100 mL/h and receiving vital HP 40 mL per hour. Remains on an axis, and Zosyn, patient has been receiving Lasix 40 mg IV push on a daily basis, today's chest x-ray is highly suspicious for mucous plugging involving the left mainstem bronchus and there seems to be some opaci fication in the left upper lobe, and there is ipsilateral shifting of the trachea towards the left side consistent with possible atelectasis related to mucus plugging. However I am aware that the mother already made up her mind, and she is coming today to proceed with comfort care measures. Hence no need to bronchoscope the patient especially if we are heading to possibly comfort care measures unless the mother changes her mind about comfort care. WBC count is 9 hemoglobin 7.8, basic metabolic profile is normal and renal profile is normal. Objective - Vital Signs Vital signs: Vital Signs Temp 97.6 F 07/13/23 08:00 Pulse 67 07/13/23 11:00 Resp 24 07/13/23 11:00 BP 108/73 07/12/23 18:00 Pulse Ox 97 07/13/23 11:00 FiO2 40 07/13/23 11:29 Intake & Output 07/12/23 07/13/23 07/13/23 18:59 06:59 18:59 Intake Total 2471.186 2260.760 754.289 Output Total 2453 722 8392 Balance 901.467 3400.760 -545.711 Intake: IV 1700 1550 540 Anidulafungin 100 mg In 100 Sodium Chloride 0.9% 100 ml @ 84 mls/hr IVPB HS [facility] Rx#:[id number] Magnesium Sulfate-D5w Pmx 100 1 gm In Dextrose/Water 1 100ml.bag @ 100 mls/hr IVPB ONCE ONE Rx#: [id number] Magnesium Sulfate-D5w Pmx 100 1 gm In Dextrose/Water 1 100ml.bag @ 100 mls/hr IVPB ONCE ONE Rx#: [id number] Piperacillin-Tazobactam 3 200 100 .375 gm In Sodium Chloride 0.9% 100 ml @ 25 mls/hr IVPB Q8HR [facility] Rx# :[id number] Potassium Chloride 20 meq 200 In Water For Injection 1 100ml.bag @ 50 mls/hr IVPB Q2H [facility] Rx#: [id number] Potassium Chloride 20 meq 50 150 In Water For Injection 1 100ml.bag @ 50 mls/hr IVPB Q2H [facility] Rx#: [id number] Sodium Chloride 0.9% 1, 1200 1200 390 000 ml @ 100 mls/hr IV . Q10H [facility] Rx#:[id number] Intake, IV Titration 175.186 114.760 0.289 Amount Morphine Sulfate (100 mg/ 0.289 2 ml) 100 mg In Sodium Chloride 0.9% 100 ml @ 1 MG/HR 1.02 mls/hr IV . Q24H [facility] Rx#:[id number] propofoL 1,000 mg In 175.186 114.760 Empty Bag 1 bag @ 15 MCG/ KG/MIN 12.247 mls/hr IV . Q8H10M [facility] Rx#:[id number] Tube Feeding 506 506 184 Other 90 90 30 Output: Urine 1655 366 8503 Other: Voiding Method Indwelling Catheter Indwelling Catheter Indwelling Catheter ABP, PAP, CO, CI - Last Documented Arterial Blood Pressure 97/48 - Exam GENERAL EXAM: 63-year-old white male obese, intubated and mechanically ventilated. HEAD: Normocephalic and atraumatic EYES: Normal reaction of pupils, equal size. NOSE: Clear with pink turbinates. THROAT: No erythema or exudates endotracheal tube and orogastric tube are intact.. NECK: No masses, no JVD. Short obese neck is noted. CHEST: No chest wall deformity. LUNGS: Diminished breath sounds at the bases no crackles or rhonchi or wheezes CVS: S1 and S2 normal with no audible murmur, irregular rhythm. ABDOMEN: Obese, No hepatosplenomegaly, active bowel sounds, no guarding or rigidity. SKIN: Fungal dermatitis noted underneath neck folds, breasts, and abdominal folds. Sacral decubitus debridement site is dressed with postoperative dressings. CENTRAL NERVOUS SYSTEM: Could not assess, patient is fully sedated, Psychiatric: Unable to assess EXTREMITIES: Chronic venous stasis changes with mild to moderate nonpitting edema. No clubbing, or cyanosis. Peripheral pulses are intact. - Labs CBC & Chem 7: 07/13/23 05:00 07/13/23 05:00 Labs: Abnormal Lab Results - Last 24 Hours (Table) 07/12/23 07/12/23 07/13/23 Range/Units 17:57 23:43 05:00 RBC (4.30-5.90) m/uL Hgb (13.0-17.5) gm/dL Hct (39.0-53.0) % RDW (11.5-15.5) % ABG pH (7.35-7.45) ABG pCO2 (35-45) mmHg ABG Total CO2 (19-24) mmol/L ABG O2 Saturation (94-97) % Potassium 3.1 L (3.5-5.1) mmol/L Chloride 112 H (98-107) mmol/L Creatinine 0.55 L (0.66-1.25) mg/dL Glucose 106 H (74-99) mg/dL POC Glucose (mg/dL) 116 H 123 H (70-110) mg/dL Calcium 6.9 L (8.4-10.2) mg/dL Ionized Calcium Ramila 4.3 L (4.5-5.3) mg/dL 07/13/23 07/13/23 07/13/23 Range/Units 05:00 05:02 05:08 RBC 2.83 L (4.30-5.90) m/uL Hgb 7.8 L (13.0-17.5) gm/dL Hct 24.6 L (39.0-53.0) % RDW 18.1 H (11.5-15.5) % ABG pH 7.48 H (7.35-7.45) ABG pCO2 33 L (35-45) mmHg ABG Total CO2 26 H (19-24) mmol/L ABG O2 Saturation 97.6 H (94-97) % Potassium (3.5-5.1) mmol/L Chloride (98-107) mmol/L Creatinine (0.66-1.25) mg/dL Glucose (74-99) mg/dL POC Glucose (mg/dL) 116 H (70-110) mg/dL Calcium (8.4-10.2) mg/dL Ionized Calcium Ramila (4.5-5.3) mg/dL Microbiology - Last 24 Hours (Table) 07/07/23 09:04 Gram Stain - Final Back Tissue Culture - Final Myroides species Clostridium perfringens Escherichia coli 07/09/23 10:50 Blood Culture - Preliminary Blood 07/10/23 06:35 Blood Culture - Preliminary Blood Assessment and Plan Assessment: Impression: Septic shock, primary source is infected large sacral decubitus ulcer, this is a relatively large and extensive wound involving the sacral decubitus area. Infected large sacral decubitus ulcer with secondary sepsis status postoperative day #3 following large excisional debridement. Acute hypoxemic and hypercapnic respiratory failure, requiring intubation and mechanical ventilation, multifactorial mostly related to his septic shock and his bilateral pleural effusion/congestive heart failure/systolic in nature Paroxysmal Atrial fibrillation with rapid ventricular rate, currently on amiodarone infusion per protocol. Acute blood loss anemia, expected outcome of surgery Diarrhea, check C. diff Possible UTI fungal dermatitis involving his axillary region and groin bilaterally Chronic obstructive pulmonary disease, stable Chronic ongoing tobacco dependence History of alcoholism, last drink reportedly 6 weeks ago History of hypertension History of hyperlipidemia Obesity, with a BMI of 37.5 kg/m Suspect left mainstem mucous plugging Recommendation: May have already decided to proceed with comfort care measures hence I will not recommend the bronchoscopy at this point Continue ventilatory support Continue nutritional support/enteral feeding Continue antibiotics /Zosyn and Eraxis Continue GI and DVT prophylaxis Continue Lasix on a daily basis Continue to monitor daily labs Proceed to comfort care once the mother decides to proceed with comfort care sometime today. Patient remains critically ill, prognosis is extremely poor and guarded, and the surgeon on the case is recommending comfort care We'll continue to follow. Critical care time is over 30 minutes Time with Patient: Greater than 30
--- NOTE | 2023-07-13 12:33 | P.PN ---
Subjective Progress Note Date: 07/13/23 Pt remains intubated, sedated. General: intubated, sedated HEENT: normocephalic, atraumatic, no tracheal deviation Respiratory: symmetric chest rise, no cyanosis, ventilator dependent CVS: perfusing all extremities, no distal gangrene, present pitting edema GI: soft, ND : no SPT, no CVAT, abbott is present Neuro: sedated Hospital course: Patient is a 63-year-old male with permanent atrial fibrillation, COPD, hypertension, congestive heart failure per patient, and chronic lower extremity weakness who presented to the ER due to increased congestion. On arrival to the ER his vital signs were remarkable for a blood pressure of 83/37 and a pulse of 113. Laboratory analysis included CBC, coags, CMP, CK, and lactic acid which were remarkable for white blood cell count 24.1, hemoglobin 11.6, sodium 132, and lactic acid of 4.2. On arrival to the emergency department the patient was covered in feces and was desheveled. He was started on vancomycin, and Rocephin. He was seen by pulmonary and Eraxis was added. He received 2 L of IV fluids but remained hypotensive. I contacted general surgery who came in to see the patient and took him to the OR. He underwent an urgent wide excisional d ebrided of necrotic sacral decubitus ulcer. He was subsequently taken to the ICU he was intubated. He did require multiple vasopressors to be added including levo and days ago. He then developed atrial fibrillation with rapid ventricular response and amiodarone was initiated. Cardiology consult was placed. Echocardiogram showed ejection fraction 30-35% but may be underestimated due to tachycardia. CT abdomen and pelvis did confirm a large ulcer with exposed bone. Assessment/Plan: Infected lumbar and sacral decubitus ulcer with severe sepsis Functional quadralplegia with b/l le flexion contracture B/l Heel stage II pressure ulcures Severe Protein calorie malnutrition Class II obesity with BMI 37.5 Possibel Gram + bacilli bacteremia - Eraxis 100 mg daily daily #5 - Zosyn 3.375 g IV piggyback every 8 hours day #5 - Vancomycin IV piggyback daily #4, monitor creatinine and a trough for signs of toxicity. - Wean vasopressin as able - await final blood cultures -Pulmonary note reviewed: Patient holiday to assess mental status. -Await further infectious disease recommendations - Surgery recs: will possibly need repeat debridement and diverting colostomy once more stable. Acute blood loss anemia, anticipated outcome of surgery -Anticipate patient have continued blood loss giving need for surgical debridement over such a large area. -No transfusion required on 07/11 -Repeat CBC in a.m. Acute exacerbation of systolic CHF with EF 30-35% (me be under estimated due to tachycardia) Permanent atrial fibrillation with rapid ventricular response HTN -Cardiology following -Amiodarone infusion has been discontinued -Holding off anticoagulation until hemoglobin stabilizes and cleared by surgery Hyperglycemia -Add 10 units of Levemir, continue sliding scale insulin Imaging: Chest x-ray personally interpreted on 07/10, OG tube, ET tube are well placed, low expiratory volume, Data Review 07/10: CBC: White blood cell count 12.4, hemoglobin 8.1 Basic metabolic panel: Sodium 131, CO2 20 Liver function tests: Albumin 1.7 Vancomycin trough: 20.4 Capillary blood glucose: 202-226 Blood cultures are positive for gram-positive bacilli, tissue cultures positive for gram-negative bacilli DVT prophylaxis: Lovenox Poor overall prognosis Anticipated discharge date: Pending Clinical Course Anticipated discharge place: Pending Clinical Course This dictation was prepared using [employer] voice recognition software. Though every attempt is made to correct errors during dictation some may still exist. Objective - Vital Signs Vital signs: Vital Signs Temp 97.6 F 07/13/23 08:00 Pulse 67 07/13/23 11:00 Resp 24 07/13/23 11:00 BP 108/73 07/12/23 18:00 Pulse Ox 97 07/13/23 11:00 FiO2 40 07/13/23 11:29 Intake & Output 07/12/23 07/13/23 07/13/23 18:59 06:59 18:59 Intake Total 2471.186 2260.760 995.155 Output Total 3230 529 6738 Balance 445.770 1177.760 -1004.845 Intake: IV 1700 1550 730 Anidulafungin 100 mg In 100 Sodium Chloride 0.9% 100 ml @ 84 mls/hr IVPB HS [facility] Rx#:[id number] Magnesium Sulfate-D5w Pmx 100 1 gm In Dextrose/Water 1 100ml.bag @ 100 mls/hr IVPB ONCE ONE Rx#: [id number] Magnesium Sulfate-D5w Pmx 100 1 gm In Dextrose/Water 1 100ml.bag @ 100 mls/hr IVPB ONCE ONE Rx#: [id number] Piperacillin-Tazobactam 3 200 100 100 .375 gm In Sodium Chloride 0.9% 100 ml @ 25 mls/hr IVPB Q8HR [facility] Rx# :[id number] Potassium Chloride 20 meq 200 In Water For Injection 1 100ml.bag @ 50 mls/hr IVPB Q2H [facility] Rx#: [id number] Potassium Chloride 20 meq 50 150 In Water For Injection 1 100ml.bag @ 50 mls/hr IVPB Q2H [facility] Rx#: [id number] Sodium Chloride 0.9% 1, 1200 1200 480 000 ml @ 100 mls/hr IV . Q10H [facility] Rx#:[id number] Intake, IV Titration 175.186 114.760 5.155 Amount Morphine Sulfate (100 mg/ 5.155 2 ml) 100 mg In Sodium Chloride 0.9% 100 ml @ 1 MG/HR 1.02 mls/hr IV . Q24H [facility] Rx#:[id number] propofoL 1,000 mg In 175.186 114.760 Empty Bag 1 bag @ 15 MCG/ KG/MIN 12.247 mls/hr IV . Q8H10M [facility] Rx#:[id number] Tube Feeding 506 506 230 Other 90 90 30 Output: Urine 9310 083 9278 Other: Voiding Method Indwelling Catheter Indwelling Catheter Indwelling Catheter ABP, PAP, CO, CI - Last Documented Arterial Blood Pressure 97/48 - Labs CBC & Chem 7: 07/13/23 05:00 07/13/23 05:00 Labs: Abnormal Lab Results - Last 24 Hours (Table) 07/12/23 07/12/23 07/13/23 Range/Units 17:57 23:43 05:00 RBC (4.30-5.90) m/uL Hgb (13.0-17.5) gm/dL Hct (39.0-53.0) % RDW (11.5-15.5) % ABG pH (7.35-7.45) ABG pCO2 (35-45) mmHg ABG Total CO2 (19-24) mmol/L ABG O2 Saturation (94-97) % Potassium 3.1 L (3.5-5.1) mmol/L Chloride 112 H (98-107) mmol/L Creatinine 0.55 L (0.66-1.25) mg/dL Glucose 106 H (74-99) mg/dL POC Glucose (mg/dL) 116 H 123 H (70-110) mg/dL Calcium 6.9 L (8.4-10.2) mg/dL Ionized Calcium Ramila 4.3 L (4.5-5.3) mg/dL 07/13/23 07/13/23 07/13/23 Range/Units 05:00 05:02 05:08 RBC 2.83 L (4.30-5.90) m/uL Hgb 7.8 L (13.0-17.5) gm/dL Hct 24.6 L (39.0-53.0) % RDW 18.1 H (11.5-15.5) % ABG pH 7.48 H (7.35-7.45) ABG pCO2 33 L (35-45) mmHg ABG Total CO2 26 H (19-24) mmol/L ABG O2 Saturation 97.6 H (94-97) % Potassium (3.5-5.1) mmol/L Chloride (98-107) mmol/L Creatinine (0.66-1.25) mg/dL Glucose (74-99) mg/dL POC Glucose (mg/dL) 116 H (70-110) mg/dL Calcium (8.4-10.2) mg/dL Ionized Calcium Ramila (4.5-5.3) mg/dL Microbiology - Last 24 Hours (Table) 07/07/23 09:04 Gram Stain - Final Back Tissue Culture - Final Myroides species Clostridium perfringens Escherichia coli 07/09/23 10:50 Blood Culture - Preliminary Blood 07/10/23 06:35 Blood Culture - Preliminary Blood
[2023-07-13] MEDS: SODIUM CHLORIDE 0.9% 1,000 ML IV SCH (15:02)
--- NOTE | 2023-07-13 17:56 | P.DS ---
Providers Date of admission: 07/07/23 17:53 Expected date of discharge: 07/13/23 Attending physician: Kady Moon DO Consults: 07/07/23 17:56 Consult Physician Routine Consulting Provider: Tanvi Fowler Consult Reason/Comments: ICU care Do you want consulting provider notified?: Already Contacted Consult Physician Routine Consulting Provider: Garrison Jackson Consult Reason/Comments: infected sacral decub Do you want consulting provider notified?: Already Contacted Consult Physician Routine Consulting Provider: Abimbola Potter Consult Reason/Comments: infected sacral decub Do you want consulting provider notified?: Yes 07/07/23 23:03 Consult Physician Urgent Consulting Provider: Alexandre Matias Consult Reason/Comments: Atrial fibrillation with RVR Do you want consulting provider notified?: Yes Primary care physician: Casey Flip [facility] Course: Infected lumbar and sacral decubitus ulcer with severe sepsis Functional quadralplegia with b/l le flexion contracture B/l Heel stage II pressure ulcures Severe Protein calorie malnutrition Class II obesity with BMI 37.5 Possibel Gram + bacilli bacteremia Acute blood loss anemia, anticipated outcome of surgery Acute exacerbation of systolic CHF with EF 30-35% (me be under estimated due to tachycardia) Permanent atrial fibrillation with rapid ventricular response HTN Hyperglycemia for Phx, please refer to progress note earlier Hospital course: Patient is a 63-year-old male with permanent atrial fibrillation, COPD, hypertension, congestive heart failure per patient, and chronic lower extremity weakness who presented to the ER due to increased congestion. On arrival to the ER his vital signs were remarkable for a blood pressure of 83/37 and a pulse of 113. Laboratory analysis included CBC, coags, CMP, CK, and lactic acid which were remarkable for white blood cell count 24.1, hemoglobin 11.6, sodium 132, and lactic acid of 4.2. On arrival to the emergency department the patient was covered in feces and was desheveled. He was started on vancomycin, and Rocephin. He was seen by pulmonary and Eraxis was added. He received 2 L of IV fluids but remained hypotensive. I contacted general surgery who came in to see the patient and took him to the OR. He underwent an urgent wide excisional debrided of necrotic sacral decubitus ulcer. He was subsequently taken to the ICU he was intubated. He did require multiple vasopressors to be added including levo and days ago. He then developed atrial fibrillation with rapid ventricular response and amiodarone was initiated. Cardiology consult was placed. Echocardiogram showed ejection fraction 30-35% but may be underestimated due to tachycardia. CT abdomen and pelvis did confirm a large ulcer with exposed bone. Pt declined while in the ICU, and comfort measures were discussed with family. Pt was transitioned to hospice care on 07/13, and at 17:07. Plan - Discharge Summary New Discharge Prescriptions: No Action Furosemide [Lasix] 20 mg PO DAILY #14 tab Metoprolol Tartrate [Lopressor] 12.5 mg PO BID Spironolactone [Aldactone] 25 mg PO DAILY #14 tab Atorvastatin [Lipitor] 20 mg PO DAILY #30 tab lisinopriL [Zestril] 5 mg PO HS #14 tab Discharge Medication List Atorvastatin [Lipitor] 20 mg PO DAILY #30 tab 04/29/23 [Rx] Furosemide [Lasix] 20 mg PO DAILY #14 tab 04/29/23 [Rx] Spironolactone [Aldactone] 25 mg PO DAILY #14 tab 04/29/23 [Rx] lisinopriL [Zestril] 5 mg PO HS #14 tab 04/30/23 [Rx] Metoprolol Tartrate [Lopressor] 12.5 mg PO BID 05/08/23 [History] Follow up Appointment(s)/Referral(s): Casey Varner MD [Primary Care Provider] - 1-2 days
--- NOTE | 2023-07-18 22:19 | P.PN ---
Subjective Progress Note Date: 07/12/23 Principal diagnosis: Reason for follow-up is sepsis and infected sacral pressure ulcer. Patient is a 63-year-old male with a past medical history negative for hypertension COPD atrial flutter atrial fibrillation patient was brought into the hospital for evaluation of weakness diarrhea patient was noticed to have extensive sacral pressure ulcer also noticed to be septic in this patient with status post extensive debridement of the sacral wound which is extending down to the coccyx and the patient was subsequently admitted to the ICU. On today's evaluation there is that is 07/12/2023, the patient continues to be afebrile, patient remains to be intubated on the vent FiO2 is stable at 35% no significant purulent secretions through the ET vomiting or any worsening diarrhea has been reported by the nursing staff patient requiring less pressor support. The patient white count is normal at 8.2, creatinine 0.6, repeat blood cultures pending sputum is growing Haemophilus influenzae and group C strep Objective - Vital Signs Vital signs: Vital Signs Temp 95 F L 07/12/23 05:00 Pulse 85 07/12/23 07:57 Resp 24 07/12/23 07:00 BP 99/58 07/12/23 07:00 Pulse Ox 97 07/12/23 07:00 FiO2 45 07/12/23 07:55 Intake & Output 07/11/23 07/12/23 07/12/23 18:59 06:59 18:59 Intake Total 2336 1700 200 Output Total 2050 1060 20 Balance 286 640 180 Weight 155.2 kg 146 kg Intake: IV 1700 1400 200 Anidulafungin 100 mg In 100 Sodium Chloride 0.9% 100 ml @ 84 mls/hr IVPB HS [facility] Rx#:[id number] Piperacillin-Tazobactam 3 100 100 .375 gm In Sodium Chloride 0.9% 100 ml @ 25 mls/hr IVPB Q8HR [facility] Rx# :[id number] Potassium Chloride 20 meq 300 100 100 In Water For Injection 1 100ml.bag @ 50 mls/hr IVPB Q2H [facility] Rx#: [id number] Sodium Chloride 0.9% 1, 1300 1100 100 000 ml @ 100 mls/hr IV . Q10H [facility] Rx#:[id number] Intake, IV Titration 300 300 Amount propofoL 1,000 mg In 300 300 Empty Bag 1 bag @ 15 MCG/ KG/MIN 12.247 mls/hr IV . Q8H10M [facility] Rx#:[id number] Tube Feeding 276 Other 60 Output: Urine 2050 1060 20 Other: Voiding Method Indwelling Catheter Indwelling Catheter ABP, PAP, CO, CI - Last Documented Arterial Blood Pressure 96/54 - Exam GENERAL DESCRIPTION: Middle-age male intubated on the vent RESPIRATORY SYSTEM: Unlabored breathing , decreased breath sounds at bases HEART: S1 S2 regular rate and rhythm , ABDOMEN: Soft , no tenderness EXTREMITIES: Diffuse swelling to both legs no redness. - Labs CBC & Chem 7: 07/13/23 05:00 07/13/23 05:00 Labs: Abnormal Lab Results - Last 24 Hours (Table) 07/11/23 07/12/23 07/12/23 Range/Units 15:35 05:30 05:30 RBC 2.86 L (4.30-5.90) m/uL Hgb 7.8 L (13.0-17.5) gm/dL Hct 24.5 L (39.0-53.0) % RDW 17.7 H (11.5-15.5) % ABG pH (7.35-7.45) ABG pCO2 (35-45) mmHg ABG Total CO2 (19-24) mmol/L ABG O2 Saturation (94-97) % Potassium 3.4 L (3.5-5.1) mmol/L Chloride 111 H (98-107) mmol/L Carbon Dioxide 21 L (22-30) mmol/L Creatinine 0.60 L (0.66-1.25) mg/dL Calcium 6.9 L (8.4-10.2) mg/dL 07/12/23 Range/Units 06:01 RBC (4.30-5.90) m/uL Hgb (13.0-17.5) gm/dL Hct (39.0-53.0) % RDW (11.5-15.5) % ABG pH 7.48 H (7.35-7.45) ABG pCO2 33 L (35-45) mmHg ABG Total CO2 25 H (19-24) mmol/L ABG O2 Saturation 98.3 H (94-97) % Potassium (3.5-5.1) mmol/L Chloride (98-107) mmol/L Carbon Dioxide (22-30) mmol/L Creatinine (0.66-1.25) mg/dL Calcium (8.4-10.2) mg/dL Microbiology - Last 24 Hours (Table) 07/09/23 10:50 Blood Culture - Preliminary Blood 07/07/23 09:04 Gram Stain - Preliminary Back Tissue Culture - Preliminary Myroides species Escherichia coli 07/07/23 09:04 Anaerobic Culture - Final Back 07/10/23 06:35 Blood Culture - Preliminary Blood 07/08/23 00:30 Gram Stain - Final Sputum Sputum Culture - Final Haemophilus influenzae Beta Hemolytic Strep Group C Assessment and Plan (1) Infected decubitus ulcer Status: Acute Code(s): L89.90 - PRESSURE ULCER OF UNSPECIFIED SITE, UNSPECIFIED STAGE; L08.9 - LOCAL INFECTION OF THE SKIN AND SUBCUTANEOUS TISSUE, UNSP SNOMED Code(s): 312761017 (2) Positive blood culture Status: Acute Code(s): R78.81 - BACTEREMIA SNOMED Code(s): 355873609 (3) Sepsis Status: Acute Code(s): A41.9 - SEPSIS, UNSPECIFIED ORGANISM SNOMED Code(s): 77569207 Plan: 1patient presented to hospital with sepsis in this patient who did have a hypothermia tachycardia elevated white count source is infected sacral pressure ulcer and concern for underlying osteomyelitis in this patient who is status post extensive debridement in the OR completed yesterday and deep culture which are currently pending with Gram stain showing both gram-negative bacilli as well as gram-positive cocci 2local cultures currently growing gram-negative bacilli. 3positive blood culture with gram-positive bacilli question of contamination was related to his infected pressure ulcer blood culture has been repeated currently pending, Sputum culture growing haemophilus and group C strep. 4patient to continue with Zosyn to continue, overall prognosis guarded possible hospice which may be appropriate for him Dictation was produced using [employer] software. please excuse any grammatical, word or spelling errors. Time with Patient: Less than 30
== END 2023-07-13 18:19 | disposition expired | DRG 853 ==
LOC: EC 12:30 → 2SICU 17:53
PROVIDERS: ADMIT Internal Medicine; ATTEND Internal Medicine
PROC: 0KBP0ZZ Excision of Left Hip Muscle, Open Approach (ICD-10-PCS; 2023-07-07)
PROC: 5A1955Z Respiratory Ventilation, Greater than 96 Consecutive Hours (ICD-10-PCS; principal; 2023-07-07 19:45)
PROC: 30233N1 Transfusion of Nonautologous Red Blood Cells into Peripheral Vein, Percutaneous Approach (ICD-10-PCS; 2023-07-08)
PROC: 3E033XZ Introduction of Vasopressor into Peripheral Vein, Percutaneous Approach (ICD-10-PCS; 2023-07-08)
PROC: 0D9670Z Drainage of Stomach with Drainage Device, Via Natural or Artificial Opening (ICD-10-PCS; 2023-07-08)
PROC: 3E0G76Z Introduction of Nutritional Substance into Upper GI, Via Natural or Artificial Opening (ICD-10-PCS; 2023-07-09)
DX: A41.51 Sepsis due to Escherichia coli [E. coli] (principal); E43 Unspecified severe protein-calorie malnutrition; J96.01 Acute respiratory failure with hypoxia; J96.02 Acute respiratory failure with hypercapnia; R65.21 Severe sepsis with septic shock; I50.23 Acute on chronic systolic (congestive) heart failure; L89.144 Pressure ulcer of left lower back, stage 4; L89.613 Pressure ulcer of right heel, stage 3; L89.154 Pressure ulcer of sacral region, stage 4; R53.2 Functional quadriplegia; L89.623 Pressure ulcer of left heel, stage 3; I48.21 Permanent atrial fibrillation; I48.92 Unspecified atrial flutter; D62 Acute posthemorrhagic anemia; N39.0 Urinary tract infection, site not specified; I96 Gangrene, not elsewhere classified; J44.9 Chronic obstructive pulmonary disease, unspecified; I27.22 Pulmonary hypertension due to left heart disease; I11.0 Hypertensive heart disease with heart failure; F10.21 Alcohol dependence, in remission; Z51.5 Encounter for palliative care; Z66 Do not resuscitate; E66.9 Obesity, unspecified; T50.916A Underdosing of multiple unspecified drugs, medicaments and biological substances, initial encounter; Z91.138 Patient's unintentional underdosing of medication regimen for other reason; R19.7 Diarrhea, unspecified; F17.210 Nicotine dependence, cigarettes, uncomplicated; R73.9 Hyperglycemia, unspecified; B96.7 Clostridium perfringens [C. perfringens] as the cause of diseases classified elsewhere; L25.9 Unspecified contact dermatitis, unspecified cause; E78.5 Hyperlipidemia, unspecified; N20.0 Calculus of kidney; I87.8 Other specified disorders of veins; E87.6 Hypokalemia; B36.9 Superficial mycosis, unspecified; B96.3 Hemophilus influenzae [H. influenzae] as the cause of diseases classified elsewhere; B95.4 Other streptococcus as the cause of diseases classified elsewhere; R00.1 Bradycardia, unspecified; Z79.899 Other long term (current) drug therapy; Z86.14 Personal history of Methicillin resistant Staphylococcus aureus infection; Z68.37 Body mass index [BMI] 37.0-37.9, adult
CPT/HCPCS: 36415; 71045; 74177; 80048; 80053; 80202; 81001; 82330; 82550; 82565; 82805; 83036; 83605; 83735; 83880; 84100; 84132; 85025; 85027; 85610; 85730; 86850; 86900; 86901; 86920; 87040; 87070; 87075; 87077; 87086; 87186; 87205; 87324; 93005; 93306; 94002; 94003; 94640; 96365; 96366; 96375; 99291